=== PATIENT | female | born 1965 | race Two or more races ===

== ENCOUNTER → 2020-06-08 09:12 | Outpatient (REF) | payer MEDICAID, SELFPAY ==
--- NOTE | 2020-06-08 | NM_ITS ---
Myocardial perfusion study Indication: Chest pain with risk factors to evaluate for myocardial ischemia Technique: The patient was brought in for a Lexiscan perfusion study on 06/08/2020. Patient performed low-level exercise and was injected 0.4 mg of Lexiscan intravenously. Within a minute of injection, 40 mCi of sestamibi was given intravenously. Images were obtained using the SPECT gamma camera interlaced with the gating device. Images were obtained in supine position. Resting perfusion study was performed on 06/09/2020. Patient was administered 40 mCi of sestamibi intravenously at rest. Images were then obtained in supine position. Images obtained with and without CT attenuation. Total DLP 225 MGY-CM. Images were processed with the software and compared side to side in short axis, horizontal long axis and vertical long axis views. Findings: Images were suboptimal due to intense subdiaphragmatic uptake interfering with inferior wall uptake. The stress perfusion study showed non attenuated images show some thinning in the distal anterolateral wall of the LV myocardium with minimally reduced in the inferior and apex of the LV myocardium. Attenuation corrected images are suboptimal with mildly reduced uptake in the anterior wall and septal wall with moderately reduced uptake in the apex of the LV myocardium.. The gated study shows normal LV systolic function with calculated LVEF of 58%. LV cavity is normal in size. The gated study shows normal systolic wall thickening and contraction of segments. Resting study shows non attenuated images did not show any significant change in perfusion pattern compared to stress perfusion study. Gating at rest reveals normal systolic wall motion with visually estimated ejection fraction at greater than 55%. The findings are consistent with likely normal myocardial perfusion. NM/NM dana perf SPECT rest & str Impression: 1. Myocardial perfusion imaging study shows likely normal myocardial perfusion 2. Gated LVEF is 58% 3. Transient ischemic dilatation not present EKG is nondiagnostic for ischemia
--- NOTE | 2020-06-08 09:15 | CA_ITS ---
Acquisition Time: 2020-06-08 10:49:02 Total Exercise Time: 00:02:47 Test Indications: cp Medications: see chart Protocol: JOVITA Max HR: 150 BPM 89% of Pred: 168 BPM Max BP: 128/070 mmHG Max Work Load: 4.3 METS Started with exercise nuclear stress test using Jovita protocol, however pt became severely SOB at 2 min and 30 sec. Test switched to pharmacological using lexisca. Pt has mild SOB and Chest pressure 1/10 that resolved in recovery period. Pt had nausea and vomitted, aminophyline 75 mg IV given to pt. Zofran 4 mg IV ordered and given to pt. EKG without any arrhythmias, non-diagnostic for ischemia. Nuclear images to follow. Normotensiver esponse to test. Test reviewed with Dr. Head. Referred By: Mau Tarango Overread By: Corrine Ervin
== END ==
LOC: HO.CARD 09:12
PROVIDERS: Visit Provider Internal Medicine Cardiovascular Disease
DX: R07.89 Other chest pain (principal)
CPT/HCPCS: 78452; 93017; A9500; J0280; J2405; J2785

== ENCOUNTER 2020-06-19 10:49 | Outpatient (REF) | payer MEDICAID, SELFPAY ==
[2020-06-19 13:23] LABS: MANUAL DIFF FLAG NO
[2020-06-19 13:35] LABS: Basophils Absolute Auto 0.1 X10*3/uL (0.0-0.2); Basophils Percent Auto 0.8 % (0-2); Eosinophils Absolute Auto 0.1 X10*3/uL (0.0-0.4); Eosinophils Percent Auto 1.3 % (0-4); Hematocrit 38.5 % (37-47); Hemoglobin 11.2 g/dl (12.0-16.0); Imm Gran Abs Auto 0.02 X10*3/uL (0.00-0.03); Imm Gran Pct Auto 0.3 % (0.0-0.4); Lymphocytes Absolute Auto 1.4 X10*3/uL (1.2-4.9); Lymphocytes Percent Auto 18.2 % (20-40); Mean Corpuscular HGB Conc 29.1 g/dl (31.0-35.0); Mean Corpuscular Volume 75.6 fL (80-98); Mean Platelet Volume 10.9 fL (9.4-12.3); Monocytes Absolute Auto 0.7 X10*3/uL (0.1-1.2); Monocytes Percent Auto 8.5 % (2-11); Neutrophils Absolute Auto 5.5 X10*3/uL (2.0-8.3); Neutrophils Percent Auto 70.9 % (45-73); Platelet Count 362 X10*3/uL (160-400); Red Blood Count 5.09 X10*6/uL (4.20-5.50); Red Cell Distribution Width 16.4 % (11.0-16.0); White Blood Count 7.7 X10*3/uL (4.8-10.8)
[2020-06-19 14:03] LABS: Alanine Aminotransferase 9 U/L (0-31); Anion Gap 14 (12-20); Aspartate Amino Transferase 12 U/L (5-31); Bilirubin Total 0.4 mg/dL (0.0-1.0); Blood Urea Nitrogen 18 mg/dL (9-16); C Reactive Protein 1.85 mg/dL (< or = 0.50); Calcium 8.8 mg/dL (8.4-10.2); Carbon Dioxide 30 mmol/L (22-29); Chloride 97 mmol/L (96-108); Estimated Glomerular Filt Rate 56; Glucose Random 115 mg/dL (60-115); Potassium 4.1 mmol/l (3.3-5.1); Sodium 137 mmol/L (135-145)
[2020-06-19 14:04] LABS: Albumin Level 4.1 g/dL (3.5-5.0); Alkaline Phosphatase 94 U/L (39-117); Total Protein 7.1 g/dL (6.5-8.0)
[2020-06-19 14:16] LABS: Erythrocyte Sedimentation Rate 25 MM/HR (0-20)
[2020-06-22 08:38] LABS: HBS Num1 7.62 mIU/mL (0-7.99); HBc Num1 0.08 S/CO (0.00-0.79); HBsAGNum1 0.22 S/CO (0.00-0.99); Hepatitis B Core Antibody Nonreactive (Nonreactive); Hepatitis B Surface Antigen Negative (Negative); ~HepC Num1 9.92 S/CO (0.00-0.79); ~Hepatitis B Surface Antibody NONREACTIVE (Nonreactive); ~Hepatitis C Antibody Reactive (Nonreactive)
[2020-06-22 19:11] LABS: TS Negative Control Passed; TS Panel A 0; TS Panel B 0; TS Positive Control Passed; TSpotTB Negative (SeeBelow)
[2020-06-24 09:53] LABS: Hepatitis A Antibody IgM 0.32 Index (0-0.79); ~Hepatitis A Antibody IgM Nonreactive (Nonreactive)
[2020-10-07 11:39] LABS: HCV Log PCR <1.18 NOT DETECTED; HepC Viral Load <15 NOT DETECTED
== END 2020-06-19 10:50 | disposition home or self-care (01) ==
LOC: HO.LAB 10:49
PROVIDERS: PCP Internal Medicine; Referring Provider Internal Medicine; Visit Provider Student in an Organized Health Care Education/Training Program
DX: M05.9 Rheumatoid arthritis with rheumatoid factor, unspecified (principal); Z79.899 Other long term (current) drug therapy
CPT/HCPCS: 36415; 80053; 85025; 85652; 86140; 86481; 86704; 86706; 86709; 86803; 87340; 87522; 99212

== ENCOUNTER → 2020-06-25 11:27 | Outpatient (BNVA) | payer MEDICAID, SELFPAY | PROVIDERS: PCP Internal Medicine; Referring Provider Internal Medicine; Visit Provider Nurse Practitioner | DX: Z76.89 Persons encountering health services in other specified circumstances (principal) ==

== ENCOUNTER → 2020-07-16 11:08 | Outpatient (BNVA) | payer MEDICAID, SELFPAY | PROVIDERS: PCP Internal Medicine; Visit Provider Nurse Practitioner | DX: K58.0 Irritable bowel syndrome with diarrhea (principal); K21.9 Gastro-esophageal reflux disease without esophagitis; R14.0 Abdominal distension (gaseous); E11.9 Type 2 diabetes mellitus without complications; I10 Essential (primary) hypertension | CPT/HCPCS: 99212 ==

== ENCOUNTER → 2020-07-17 09:47 | Outpatient (BNVA) | payer MEDICAID, SELFPAY | PROVIDERS: PCP Internal Medicine; Visit Provider Student in an Organized Health Care Education/Training Program | DX: M06.9 Rheumatoid arthritis, unspecified (principal) | CPT/HCPCS: 99211 ==

== ENCOUNTER → 2020-07-30 08:39 | Outpatient (BNVA) | payer MEDICAID, SELFPAY | PROVIDERS: PCP Internal Medicine; Visit Provider Nurse Practitioner | DX: Z76.89 Persons encountering health services in other specified circumstances (principal) ==

== ENCOUNTER 2020-08-13 09:43 | Emergency (ER) | payer MEDICAID, SELFPAY ==
[2020-08-13 11:06] VITALS: BP 112/56; PULSE 82; RESP 16; TEMP 36.9; O2SAT 97; BMI 45.5
--- NOTE | 2020-08-13 11:06 | XR_ITS ---
EXAMINATION: XR CHEST CLINICAL INFORMATION: : Pneumonia. COMPARISON: Chest x-ray 08/18/2019 TECHNIQUE: Frontal view of the chest was obtained. FINDINGS: The lungs are better expanded with no acute pneumonic process seen. Heart size and pulmonary vascularity is normal. There is mild spondylosis lower dorsal spine. Old healed fracture left posterior sixth rib. XR/XR chest 1V IMPRESSION: No acute cardiopulmonary process seen.
--- NOTE | 2020-08-13 11:50 | ED.GENADULT ---
HPI - General Adult General Chief complaint: General Medical Stated complaint: covid symptoms Time Seen by Provider: 08/13/20 11:01 History of Present Illness HPI narrative: Patient presents to ED for COVID like symptoms. Patient states loss of taste, loss of smell, and coughing for the past 2 days. Patient states her sister tested positive. Patient denies any shortness of breath or chest pain. Related Data Home Medications Medication Instructions Recorded Confirmed albuterol sulfate 90 mcg/actuation 2 puff INHALATION Q6H PRN 06/19/20 06/19/20 aerosol inhaler aspirin 81 mg tablet,delayed 81 mg PO DAILY 06/19/20 06/19/20 release bupropion HCl 100 mg tablet 100 mg PO BID 06/19/20 06/19/20 cholecalciferol (vitamin D3) 25 25 mcg PO DAILY 06/19/20 06/19/20 mcg (1,000 unit) capsule diltiazem HCl 180 mg 180 mg PO DAILY 06/19/20 06/19/20 capsule,extended release 24 hr docusate sodium 100 mg capsule 100 mg PO DAILY 06/19/20 06/19/20 ferrous sulfate 325 mg (65 mg 325 mg PO DAILY 06/19/20 06/19/20 iron) tablet lamotrigine 200 mg tablet 200 mg PO DAILY 06/19/20 06/19/20 losartan 25 mg tablet 25 mg PO DAILY 06/19/20 06/19/20 montelukast 10 mg tablet 10 mg PO BEDTIME 06/19/20 06/19/20 sertraline 100 mg tablet 100 mg PO DAILY 06/19/20 06/19/20 Previous Rx's Medication Instructions Recorded folic acid 1 mg tablet 1 mg PO DAILY #90 tab 06/19/20 gabapentin 800 mg tablet 800 mg PO TID #90 tab 06/19/20 tramadol 50 mg tablet 50 mg PO Q6H #120 tab 06/19/20 adalimumab 40 mg/0.8 mL See Rx Instructions SUBCUT 07/07/20 subcutaneous pen kit .COMPLEX #2 ea bisacodyl 5 mg tablet,delayed 10 mg PO BEDTIME 2 Days #4 tab 07/16/20 release dexlansoprazole 60 mg 60 mg PO DAILY 30 Days #30 cap 07/16/20 capsule,biphase delayed release sucralfate 1 gram tablet 2 g PO DAILY #60 tab 07/16/20 [id number] 2 cap PO QID 30 Days #240 cap 07/22/20 24,000-76,000-120,000 unit capsule,delayed rel ondansetron 8 mg disintegrating 8 mg PO Q12H PRN #90 tab 07/30/20 tablet loperamide 2 mg capsule 2 mg PO QID PRN #90 cap 08/03/20 methotrexate sodium 2.5 mg tablet 12.5 mg PO QWEEK #20 tab 08/05/20 Allergies Allergy/AdvReac Type Severity Reaction Status Date / Time metoclopramide [Reglan] AdvReac Unknown diarrhea, Verified 07/30/20 08:37 vomiting Review of Systems Review of Systems: Yes all other systems are reviewed and are negative Constitutional: Constitutional: Reports as per HPI and Reports no additional constitutional complaints Eyes: Eyes: Reports as per HPI and Reports no additional eye complaints ENT: Comments: Loss of taste and smell Cardiovascular: Cardiovascular: Reports as per HPI and Reports no additional cardiovascular complaints Respiratory: Respiratory: Reports as per HPI, Reports no additional respiratory complaints and Reports cough Gastrointestinal: Gastrointestinal: Reports as per HPI and Reports no additional gastrointestinal complaints Musculoskeletal: Musculoskeletal: Reports no additional musculoskeletal complaints and Reports as per HPI Neurologic: Reports system reviewed and no additional complaints, except as documented and Reports as per HPI Psychiatric: Psychiatric: Reports no additional psychiatric complaints and Reports as per HPI [facility] Past Medical History Medical History Anemia Arthritis Asthma Bleeding hemorrhoid Chronic fatigue Diabetes GERD (gastroesophageal reflux disease) Graves disease Hepatitis C HTN (hypertension) Hyperlipidemia IBS (irritable bowel syndrome) Lumbar radiculopathy Morbid obesity Multinodular thyroid Osteoarthritis Seropositive rheumatoid arthritis Tubular adenoma of colon Vitamin D deficiency Surgical History History of esophagogastroduodenoscopy (EGD) Hx of appendectomy Hx of cholecystectomy Hx of colonoscopy Family History Family History (Updated 06/25/20 @ 11:39 by KARLA Sherman) Mother Diabetes HTN (hypertension) CVD (cardiovascular disease) Heart problem Father Diabetes Brother Autism History of open heart surgery CVD (cardiovascular disease) Diabetes Son Diabetes Maternal Grandmother Diabetes Maternal Grandfather Diabetes Social History Social History (Updated 07/30/20 @ 08:38 by KARLA Sherman) Household Members: Spouse and Children Alcohol intake: never Smoking Status: Never smoker Advance Directives: No Advance Directives Information Provided: No Physical Exam Vital Signs: Vital Signs: Last Vital Signs Temp 98.4 F 08/13/20 11:06 Pulse 82 08/13/20 11:06 Resp 16 08/13/20 11:06 BP 112/56 L 08/13/20 11:06 Pulse Ox 97 08/13/20 11:06 Body Mass Index 45.5 Const: General: cooperative, healthy appearing, comfortable, no acute distress, well developed, alert, awake and Physically active Orientation/consciousness: patient oriented x3 HENMT: Head: Yes normal to inspection and Yes No palpable skull fracture present Eyes: General: appearance normal, both eyes and all related structures Neck: Neck: Yes normal visual inspection, Yes full ROM, Yes no lymphadenopathy, Yes no meningeal signs, Yes trachea midline, Yes supple and No tender Chest: Chest palpation & inspection: normal inspection of the chest and normal palpation of entire chest wall Resp: Effort & Inspection: normal respiratory effort and able to speak in complete sentences Auscultation: clear to auscultation bilaterally Cardio: Jugular venous distension: no JVD Heart sounds: S1 normal heart sound present and S2 normal heart sound present GI: Inspection: Yes normal to inspection and No abdominal wall ecchymosis Palpation (GI): Soft to palpation, not firm, nontender, no guarding and not rigid : General: No CVA tenderness and Yes no CVA tenderness Back/Spine/Pelvis: Back: no CVA tenderness, No CVA tenderness and No back tenderness Skin: General skin exam: no rashes or lesions noted and elasticity normal Neuro: General: patient oriented x3, gait normal, no meningeal signs and CN's II-XI intact bilaterally Cranial nerves: Yes CN's II-XII intact bilaterally Extrem: General: Yes normal to inspection and Yes full ROM Psych: Appearance: grossly normal, well kempt and not disheveled Course Course Course Narrative: Patient is not in any distress. Patient will have COVID swab and chest x-ray ordered. Reevaluation(s) Reevaluation #1: Patient COVID swab came back negative& chest x-ray negative for pneumonia. Patient was informed although came back negative for COVID that does not mean she does not have the virus. Patient recommended to continue quarantine since she is having symptoms of COVID such as loss of smell and taste, coughing, and sister was positive. Time: 14:29 Medical Decision Making MDM Narrative Medical decision making narrative: Viral syndrome Lab Data Labs: Lab Results 08/13/20 Range/Units 11:55 Coronavirus (PCR) NEGATIVE (Negative) Influenza Type A (PCR) NEGATIVE (Negative) Influenza Type B (PCR) NEGATIVE (Negative) RSV RNA Qual (PCR) NEGATIVE (Negative) Discharge Plan Discharge Clinical Impression: Acute viral syndrome Patient Disposition: Home, Self-Care Instructions: Viral Syndrome (ED) Additional Instructions: Return the ED for any chest pain, shortness of breath, weakness, dizziness, leg swelling, calf pain, coughing up blood, or any other concerning symptoms. Although your COVID swab came back negative due to you having symptoms only 2 days and recent exposure to someone who is positive for COVID I recommend continuing quarantine. Prescriptions: No Action Humira Pen 40 mg/0.8 mL pen injector kit See Rx Instructions subcut .COMPLEX Qty: 2 RF: 3 [id number]-mwxvyoql-yrgaqsw [Creon] 24,000-76,000 -120,000 unit capsule,delayed release(DR/EC) 2 cap PO QID 30 Days Qty: 240 RF: 3 loperamide 2 mg capsule 2 mg PO QID PRN (Reason: loose stool) Qty: 90 RF: 1 methotrexate sodium 2.5 mg tablet 12.5 mg PO QWEEK Qty: 20 RF: 3 docusate sodium [Colace] 100 mg capsule 100 mg PO DAILY RF: 0 cholecalciferol (vitamin D3) 25 mcg (1,000 unit) capsule 25 mcg PO DAILY RF: 0 albuterol sulfate 90 mcg/actuation HFA aerosol inhaler 2 puff inhalation Q6H PRNRF: 0 lamotrigine 200 mg tablet 200 mg PO DAILY RF: 0 sertraline 100 mg tablet 100 mg PO DAILY RF: 0 montelukast [Singulair] 10 mg tablet 10 mg PO BEDTIME RF: 0 losartan 25 mg tablet 25 mg PO DAILY RF: 0 aspirin 81 mg tablet,delayed release (DR/EC) 81 mg PO DAILY RF: 0 bupropion HCl 100 mg tablet 100 mg PO BID RF: 0 ferrous sulfate 325 mg (65 mg iron) tablet 325 mg PO DAILY RF: 0 diltiazem HCl [Cartia XT] 180 mg capsule,extended release 24hr 180 mg PO DAILY RF: 0 folic acid 1 mg tablet 1 mg PO DAILY Qty: 90 RF: 1 gabapentin 800 mg tablet 800 mg PO TID Qty: 90 RF: 5 tramadol 50 mg tablet 50 mg PO Q6H Qty: 120 RF: 5 Dexilant 60 mg capsule,biphase delayed releas 60 mg PO DAILY 30 Days Qty: 30 RF: 6 sucralfate [Carafate] 1 gram tablet 2 g PO DAILY Qty: 60 RF: 6 bisacodyl [Dulcolax (bisacodyl)] 5 mg tablet,delayed release (DR/EC) 10 mg PO BEDTIME 2 Days Qty: 4 RF: 0 ondansetron 8 mg tablet,disintegrating 8 mg PO Q12H PRN (Reason: nausea and vomiting) Qty: 90 RF: 3 Referrals: Dee Valenzuela MD [Primary Care Provider] - 2 days (COVID like symptoms. COVID swab negative. Patient informed to continue quarantine due to her having symptoms and recent exposure.) Interventions: ED Discharge Assessment Last Done: 08/13/20 14:37 Discharge Date/Time: 08/13/20 14:39 Print Language: Indonesian
[2020-08-13 13:16] LABS: Influenza A PCR NEGATIVE (Negative); Influenza B PCR NEGATIVE (Negative); Resp Syncy Virus RNA Qual PCR NEGATIVE (Negative); SARS COV2 PCR INHOUSE NEGATIVE (Negative)
== END 2020-08-13 14:39 | disposition home or self-care (01) ==
PROVIDERS: Physician Assistant; Emergency Provider Emergency Medicine Emergency Medical Services; PCP Internal Medicine
DX: B34.9 Viral infection, unspecified (principal); Z20.828 Contact with and (suspected) exposure to other viral communicable diseases; J45.909 Unspecified asthma, uncomplicated; E11.9 Type 2 diabetes mellitus without complications; I10 Essential (primary) hypertension; Z79.899 Other long term (current) drug therapy
CPT/HCPCS: 0241U; 36415; 71045; 99283

== ENCOUNTER → 2020-10-20 08:24 | Outpatient (BNVA) | payer MEDICAID, SELFPAY | PROVIDERS: PCP Internal Medicine; Visit Provider Nurse Practitioner ==

== ENCOUNTER → 2020-10-21 09:10 | Outpatient (REF) | payer MEDICAID, SELFPAY ==
--- NOTE | 2020-10-21 09:30 | CA_ITS ---
Transthoracic Echocardiogram Patient (Last, First, Middle): Lilliam Geller, Gender: Female Date of : 1965 Age: 54 Procedure Date: 10/21/2020 Procedure Type: Transthoracic Echocardiogram Location: OP Height: 157.48 cm Weight: 135.63 kg BSA: 2.27 m2 Heart Rate: bpm BP: 138 / 80 mmHg [employer] Helper: Referring MD: Mau Tarango MD Simonizer: Rocky Cha MD Symptoms: R07.89 OTHER CHEST PAIN Study Quality: Good ECG Rhythm: Sinus Conclusions: - 1. Normal LV systolic function with impaired relaxation filling pattern 2. Normal cardiac valvular Doppler 3. Normal RV systolic pressure 4. No pericardial effusion Findings Left Ventricle Normal left ventricular size, thickness, and systolic function. The visually estimated ejection fraction is between 55-60%. Spectral Doppler is indicative of an impaired relaxation filling pattern. E/E prime ratio is between 8 and 15 consistent with indeterminate filling pressures. Right Ventricle Normal right ventricular cavity size and systolic function. Atria The left atrium is likely dilated. There is no evidence of interatrial shunt. The right atrium is normal in size. Aortic Valve Normal aortic valve structure and function. There is no aortic valve stenosis. There is no aortic valve regurgitation. Mitral Valve Normal mitral valve structure and function. There is trace mitral valve regurgitation. There is no mitral valve stenosis. Pulmonic Valve The pulmonic valve was not well visualized. Tricuspid Valve Normal tricuspid valve structure. There is trace tricuspid valve regurgitation. The right ventricular systolic pressure is normal. The right ventricular systolic pressure is 24 mmHg. Normal right atrial pressure. There is no evidence of pulmonary hypertension. Great Vessels All visible segments of the aorta are normal in size. The pulmonary artery was not well visualized. Venous The inferior vena cava is normal in size and collapses greater than 50% with inspiration. Pericardium/Pleural There is no evidence of pericardial effusion. Prior Study Comparison No prior study available for comparison. Measurements 2D Linear Measurements IVSd: 0.93 0.6-0.9/0.6-1.0 cm LVIDd: 5.37 3.9-5.3/4.2-5.9 cm LVIDd Index: 2.37 2.4-3.2/2.2-3.1 cm/m2 LVIDs: 3.57 2.0-3.6 cm LVPWd: 0.86 0.7-1.1 cm Ao Root: 2.80 2.1-3.5 cm LA Diam: 4.00 2.7-3.8/3.0-4.0 cm LAIDs Index: 1.76 1.5-2.3 cm/m2 LV Mass: 220.54 67-162/88-224 g LV Mass Index: 97.15 43-95/49-115 g/m2 LVOT Diam: 2.20 3.0+(-)1.3 cm 2D Systolic Function EF 4C: 56.90 >55% EF 2C: 49.90 >55% Mitral Valve MV Pk E: 1.09 MV PK A: 1.06 MV Decel Time: 187.00 E/A: 1.00 E'Lateral: 12.90 E'Medial: 8.51 E/E' Med: 12.80 E/E' Lat: 8.40 PHT: 55.00 MVA PHT: 4.00 Decel Kendall: 5.82 Aortic Valve AoV Pk Tino: 1.44 AoV Mn Tino: 0.97 AoV VTI: 0.32 AoV Pk Grad: 8.00 Aov Mn Grad: 4.00 SAJI Cont.VTI: 2.79 LVOT LVOT Pk Tino: 1.03 LVOT Mn Tino: 0.69 LVOT VTI: 0.23 LVOT Pk Grad: 4.00 LVOT Mn Grad: 2.00 LVOT Diam: 2.20 LVOT Area: 3.80 Diastolic Function MV Pk E: 1.09 MV Pk A: 1.06 E/A: 1.00 E'Medial: 8.51 E/E' Med: 12.80 E' Laterial: 12.90 E/E' Lat: 8.40 Tricuspid Valve TR Pk Tino: 2.27 TR Pk Grad: 21.00 RA Press: 3.00 RVSP: 24.00 Great Vessels Aorta Ao Root-2D: 2.80 2.0-3.7 cm Ao Asc: 3.00 2.1-3.4 cm Pulmonary Valve PV Pk Tino: 1.14 Peak PV Grad: 5.00 Updated in Other Vendor System with Status of Final Rocky Cha MD electronically signed on 10/21/2020 6:09:49 PM with status of Final
== END ==
LOC: HO.CARD 09:10
PROVIDERS: Visit Provider Internal Medicine Cardiovascular Disease
DX: R07.89 Other chest pain (principal)
CPT/HCPCS: 93306

== ENCOUNTER 2020-10-28 18:24 | Emergency (ER) | payer MEDICAID, SELFPAY ==
[2020-10-28 19:57] VITALS: BP 131/57; PULSE 89; RESP 18; TEMP 36.8; O2SAT 96; BMI 47.5
[2020-10-28 20:42] LABS: MANUAL DIFF FLAG NO
[2020-10-28 20:43] LABS: Basophils Absolute Auto 0.1 X10*3/uL (0.0-0.2); Basophils Percent Auto 0.4 % (0-2); Eosinophils Absolute Auto 0.1 X10*3/uL (0.0-0.4); Eosinophils Percent Auto 0.7 % (0-4); Hematocrit 35.3 % (37-47); Hemoglobin 10.5 g/dl (12.0-16.0); Imm Gran Abs Auto 0.03 X10*3/uL (0.00-0.03); Imm Gran Pct Auto 0.3 % (0.0-0.4); Lymphocytes Absolute Auto 2.1 X10*3/uL (1.2-4.9); Mean Corpuscular HGB Conc 29.7 g/dl (31.0-35.0); Mean Corpuscular Hemoglobin 22.2 pg (27.0-33.0); Mean Corpuscular Volume 74.8 fL (80-98); Mean Platelet Volume 9.9 fL (9.4-12.3); Monocytes Percent Auto 8.4 % (2-11); Neutrophils Absolute Auto 8.3 X10*3/uL (2.0-8.3); Neutrophils Percent Auto 72.2 % (45-73); Platelet Count 337 X10*3/uL (160-400); Red Blood Count 4.72 X10*6/uL (4.20-5.50); White Blood Count 11.5 X10*3/uL (4.8-10.8)
[2020-10-28 20:55] LABS: Glucose Urine UA NEG (NEG); Leukocyte Esterase Urine NEG (NEG); Nitrite Urine NEG (NEG); Specific Gravity - Urine 1.025 (1.005-1.025); Urine Blood NEG (NEG); Urine Ketones NEG (NEG); Urine Protein TRACE MG/DL (NEG-TRACE)
[2020-10-28 20:59] LABS: Appearance Urine CLEAR; Color Urine YELLOW
[2020-10-28 21:05] LABS: Alanine Aminotransferase 10 U/L (0-31); Albumin Level 4.2 g/dL (3.5-5.0); Alkaline Phosphatase 103 U/L (39-117); Anion Gap 17 (12-20); Aspartate Amino Transferase 13 U/L (5-31); Bilirubin Total 0.3 mg/dL (0.0-1.0); Blood Urea Nitrogen 13 mg/dL (9-16); Calcium 9.3 mg/dL (8.4-10.2); Carbon Dioxide 31 mmol/L (22-29); Chloride 97 mmol/L (96-108); Creatinine Clr Calc Pharmacy 89.3; Estimated Glomerular Filt Rate > 60; Glucose Random 82 mg/dL (60-115); Potassium 3.5 mmol/L (3.3-5.1); Sodium 141 mmol/L (135-145); Total Protein 7.5 g/dL (6.5-8.0)
--- NOTE | 2020-10-28 22:09 | ED_ITS ---
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 Patient states her last kristal l movement was yesterday and that she has continued to pass flatus. In addition, patient reports that she is status post cholecystectomy several years ago and otherwise denies any surgical history in the abdomen. Patient also complains of back discomfort that radiates into the epigastric area. She denies any urinary pain/burning/frequency. Related Data Home Medications Medication Instructions Recorded Confirmed albuterol sulfate 90 mcg/actuation 2 puff INHALATION Q6H PRN 06/19/20 06/19/20 aerosol inhaler aspirin 81 mg tablet,delayed 81 mg PO DAILY 06/19/20 06/19/20 release bupropion HCl 100 mg tablet 100 mg PO BID 06/19/20 06/19/20 cholecalciferol (vitamin D3) 25 25 mcg PO DAILY 06/19/20 06/19/20 mcg (1,000 unit) capsule diltiazem HCl 180 mg 180 mg PO DAILY 06/19/20 06/19/20 capsule,extended release 24 hr lamotrigine 200 mg tablet 200 mg PO DAILY 06/19/20 06/19/20 losartan 25 mg tablet 25 mg PO DAILY 06/19/20 06/19/20 montelukast 10 mg tablet 10 mg PO BEDTIME 06/19/20 06/19/20 sertraline 100 mg tablet 100 mg PO DAILY 06/19/20 06/19/20 Previous Rx's Medication Instructions Recorded folic acid 1 mg tablet 1 mg PO DAILY #90 tab 06/19/20 gabapentin 800 mg tablet 800 mg PO TID #90 tab 06/19/20 tramadol 50 mg tablet 50 mg PO Q6H #120 tab 06/19/20 loperamide 2 mg capsule 2 mg PO QID PRN #90 cap 08/03/20 methotrexate sodium 2.5 mg tablet 12.5 mg PO QWEEK #20 tab 08/05/20 ferrous sulfate 325 mg (65 mg 325 mg PO QAM #30 tab 09/08/20 iron) tablet dexlansoprazole 60 mg 60 mg PO DAILY 30 Days #30 cap 10/20/20 capsule,biphase delayed release docusate sodium 100 mg capsule 100 mg PO DAILY 30 Days #30 cap 10/20/20 zigamu-[id number] 2 cap PO QID 30 Days #240 cap 10/20/20 24,000-76,000-120,000 unit capsule,delayed rel ondansetron 8 mg disintegrating 8 mg PO Q12H PRN #90 tab 10/20/20 tablet sucralfate 1 gram tablet 2 g PO DAILY #60 tab 10/20/20 adalimumab 40 mg/0.8 mL 40 mg SUBCUT Q2W #2 ea 10/23/20 subcutaneous pen kit Allergies Allergy/AdvReac Type Severity Reaction Status Date / Time metoclopramide [Reglan] AdvReac Unknown diarrhea, Verified 10/20/20 08:25 vomiting Review of Systems Review of Systems: Pertinent positives and negatives as stated in HPI 10 point review of systems is otherwise negative. ON LICENSE OF [facility] Past Medical History Medical History Anemia Arthritis Asthma Bleeding hemorrhoid Chronic fatigue Diabetes GERD (gastroesophageal reflux disease) Graves disease Hepatitis C HTN (hypertension) Hyperlipidemia IBS (irritable bowel syndrome) Lumbar radiculopathy Morbid obesity Multinodular thyroid Osteoarthritis Seropositive rheumatoid arthritis Tubular adenoma of colon Vitamin D deficiency Surgical History History of esophagogastroduodenoscopy (EGD) Hx of appendectomy Hx of cholecystectomy Hx of colonoscopy Family History Family History Mother Diabetes HTN (hypertension) CVD (cardiovascular disease) Heart problem Father Diabetes Brother Autism History of open heart surgery CVD (cardiovascular disease) Diabetes Son Diabetes Maternal Grandmother Diabetes Maternal Grandfather Diabetes Social History Social History Household Members: Spouse and Children Alcohol intake: never Smoking Status: Never smoker Use of substances other than those prescribed or required for medical reasons: No Advance Directives: No Advance Directives Information Provided: Yes Physical Exam Vital Signs: Vital Signs: Last Vital Signs Temp 98.3 F 10/28/20 19:57 Pulse 89 10/28/20 19:57 Resp 18 10/28/20 19:57 BP 131/57 L 10/28/20 19:57 Pulse Ox 96 10/28/20 19:57 Body Mass Index 47.5 VITAL SIGNS: Reviewed. GENERAL: Well developed, well nourished, in no acute distress. HEAD: Normocephalic/atraumatic, EYES: PERRLA, EOMI NOSE: Nares patent bilateral OROPHARYNX: no oral lesions noted, posterior pharynx clear NECK: Supple, no adenopathy LUNGS: Normal breath sounds. No adventitious sounds or accessory muscle use. SpO2<96> CARDIOVASCULAR: Regular rate and rhythm without noted murmurs, no JVD or lower extremity edema. ABDOMEN: Obese, Soft, non-tender, non-distended with bowel sounds. SKIN: Inspection of the skin reveals no rashes, ulcerations, jaundice, pallor, or petechiae. NEUROLOGIC: Alert and oriented x 4. Strength and sensation to light touch were grossly intact x 4. Course Course Course Narrative: This is a 55-year-old female with history and clinical presen tation possible pancreatitis, back pain, and less likely pyelonephritis or kidney stones and doubt any cardiopulmonary etiologies given the absence of reported history. All investigations reviewed and there are no acute findings compared to baseline and suspect that the 11.5 leukocytosis is reflective of her episodes vomiting earlier in the day. Patient on re-evaluation has had mild improvement in her symptoms after receiving combination analgesics with lidocaine patch to the back area as well as a GI cocktail. However, patient does state that her symptoms have continued although improved and she has made an appointment to follow-up with her GI specialist as well as manager intensive care in the morning. There is no evidence of acute infection, anemia, hepatobiliary/pancreatic pathology and th ere is no evidence to suggest any corresponding GI bleed. Patient was discharged in stable condition for re-evaluation and possible medication adjustment as well as outpatient workup. Medical Decision Making Lab Data Result diagrams: 10/28/20 20:35 10/28/20 20:35 Labs: Lab Results 10/28/20 10/28/20 10/28/20 Range/Units 20:35 20:35 20:35 WBC 11.5 H (4.8-10.8) X10*3/uL RBC 4.72 (4.20-5.50) X10*6/uL Hgb 10.5 L (12.0-16.0) g/dl Hct 35.3 L (37-47) % MCV 74.8 L (80-98) fL MCH 22.2 L (27.0-33.0) pg MCHC 29.7 L (31.0-35.0) g/dl RDW 15.0 (11.0-16.0) % Plt Count 337 (160-400) X10*3/uL MPV 9.9 (9.4-12.3) fL Immature Gran % (Auto) 0.3 (0.0-0.4) % Neut % (Auto) 72.2 (45-73) % Lymph % (Auto) 18.0 L (20-40) % Blount % (Auto) 8.4 (2-11) % Eos % (Auto) 0.7 (0-4) % Baso % (Auto) 0.4 (0-2) % Lymph # (Auto) 2.1 (1.2-4.9) X10*3/uL Blount # (Auto) 1.0 (0.1-1.2) X10*3/uL Eos # (Auto) 0.1 (0.0-0.4) X10*3/uL Baso # (Auto) 0.1 (0.0-0.2) X10*3/uL Abs Immat Gran (auto) 0.03 (0.00-0.03) X10*3/uL Absolute Neuts (auto) 8.3 (2.0-8.3) X10*3/uL Absolute Nucleated RBC 0.000 (0.0-0.012) X10*3/uL Nucleated RBC % (auto) 0.0 (0.0-0.2) /100WBC Hold Blue Top SEE NOTE Sodium 141 (135-145) mmol/L Potassium 3.5 (3.3-5.1) mmol/L Chloride 97 (96-108) mmol/L Carbon Dioxide 31 H (22-29) mmol/L Anion Gap 17 (12-20) BUN 13 (9-16) mg/dL Creatinine 0.92 (0.5-1.4) mg/dL Estim Creat Clear Calc 89.3 Estimated GFR > 60 Random Glucose 82 (60-115) mg/dL Calcium 9.3 (8.4-10.2) mg/dL Total Bilirubin 0.3 (0.0-1.0) mg/dL AST 13 (5-31) U/L ALT 10 (0-31) U/L Alkaline Phosphatase 103 (39-117) U/L Total Protein 7.5 (6.5-8.0) g/dL Albumin 4.2 (3.5-5.0) g/dL Urine Color Urine Appearance Urine pH (5.0-8.0) Ur Specific [place] (1.005-1.025) Urine Protein (NEG-TRACE) MG/DL Urine Glucose (UA) (NEG) MG/DL Urine Ketones (NEG) MG/DL Urine Blood (NEG) Urine Nitrite (NEG) Ur Leukocyte Esterase (NEG) 10/28/20 Range/Units 20:45 WBC (4.8-10.8) X10*3/uL RBC (4.20-5.50) X10*6/uL Hgb (12.0-16.0) g/dl Hct (37-47) % MCV (80-98) fL MCH (27.0-33.0) pg MCHC (31.0-35.0) g/dl RDW (11.0-16.0) % Plt Count (160-400) X10*3/uL MPV (9.4-12.3) fL Immature Gran % (Auto) (0.0-0.4) % Neut % (Auto) (45-73) % Lymph % (Auto) (20-40) % Blount % (Auto) (2-11) % Eos % (Auto) (0-4) % Baso % (Auto) (0-2) % Lymph # (Auto) (1.2-4.9) X10*3/uL Blount # (Auto) (0.1-1.2) X10*3/uL Eos # (Auto) (0.0-0.4) X10*3/uL Baso # (Auto) (0.0-0.2) X10*3/uL Abs Immat Gran (auto) (0.00-0.03) X10*3/uL Absolute Neuts (auto) (2.0-8.3) X10*3/uL Absolute Nucleated RBC (0.0-0.012) X10*3/uL Nucleated RBC % (auto) (0.0-0.2) /100WBC Hold Blue Top Sodium (135-145) mmol/L Potassium (3.3-5.1) mmol/L Chloride (96-108) mmol/L Carbon Dioxide (22-29) mmol/L Anion Gap (12-20) BUN (9-16) mg/dL Creatinine (0.5-1.4) mg/dL Estim Creat Clear Calc Estimated GFR Random Glucose (60-115) mg/dL Calcium (8.4-10.2) mg/dL Total Bilirubin (0.0-1.0) mg/dL AST (5-31) U/L ALT (0-31) U/L Alkaline Phosphatase (39-117) U/L Total Protein (6.5-8.0) g/dL Albumin (3.5-5.0) g/dL Urine Color YELLOW Urine Appearance CLEAR Urine pH 6.0 (5.0-8.0) Ur Specific [place] 1.025 (1.005-1.025) Urine Protein TRACE (NEG-TRACE) MG/DL Urine Glucose (UA) NEG (NEG) MG/DL Urine Ketones NEG (NEG) MG/DL Urine Blood NEG (NEG) Urine Nitrite NEG (NEG) Ur Leukocyte Esterase NEG (NEG) Discharge Plan Discharge Clinical Impression: GERD (gastroesophageal reflux disease) Qualifiers: Esophagitis presence: without esophagitis Qualified Code(s): K21.9 - Gastro- esophageal reflux disease without esophagitis Gastritis Qualifiers: Gastritis type: unspecified gastritis Chronicity: chronic Gastritis bleeding: without bleeding Qualified Code(s): K29.50 - Unspecified chronic gastritis without bleeding Patient Disposition: Home, Self-Care Instructions: Diet for Stomach Ulcers and Gastritis (ED), Gastroesophageal Reflux Disease (ED), Gastritis (ED) Additional Instructions: No dude en volver al servicio de urgencias si experimenta un empeoramiento armando de alejandro s?ntomas. Prescriptions: No Action loperamide 2 mg capsule 2 mg PO QID PRN (Reason: loose stool) Qty: 90 RF: 1 methotrexate sodium 2.5 mg tablet 12.5 mg PO QWEEK Qty: 20 RF: 3 ferrous sulfate 325 mg (65 mg iron) tablet 325 mg PO QAM Qty: 30 RF: 5 adalimumab [Humira Pen] 40 mg/0.8 mL pen injector kit 40 mg subcut Q2W Qty: 2 RF: 3 cholecalciferol (vitamin D3) 25 mcg (1,000 unit) capsule 25 mcg PO DAILY RF: 0 albuterol sulfate 90 mcg/actuation HFA aerosol inhaler 2 puff inhalation Q6H PRNRF: 0 lamotrigine 200 mg tablet 200 mg PO DAILY RF: 0 sertraline 100 mg tablet 100 mg PO DAILY RF: 0 montelukast [Singulair] 10 mg tablet 10 mg PO BEDTIME RF: 0 losartan 25 mg tablet 25 mg PO DAILY RF: 0 aspirin 81 mg tablet,delayed release (DR/EC) 81 mg PO DAILY RF: 0 bupropion HCl 100 mg tablet 100 mg PO BID RF: 0 diltiazem HCl [Cartia XT] 180 mg capsule,extended release 24hr 180 mg PO DAILY RF: 0 folic acid 1 mg tablet 1 mg PO DAILY Qty: 90 RF: 1 gabapentin 800 mg tablet 800 mg PO TID Qty: 90 RF: 5 tramadol 50 mg tablet 50 mg PO Q6H Qty: 120 RF: 5 ondansetron 8 mg tablet,disintegrating 8 mg PO Q12H PRN (Reason: nausea and vomiting) Qty: 90 RF: 3 sucralfate [Carafate] 1 gram tablet 2 g PO DAILY Qty: 60 RF: 6 Creon 24,000-76,000 -120,000 unit capsule,delayed release(DR/EC) 2 cap PO QID 30 Days Qty: 240 RF: 6 docusate sodium [Colace] 100 mg capsule 100 mg PO DAILY 30 Days Qty: 30 RF: 6 Dexilant 60 mg capsule,biphase delayed releas 60 mg PO DAILY 30 Days Qty: 30 RF: 6 Referrals: Physician,Unknown [Primary Care Provider] - 2 days Print Language: Ugandan
[2020-10-28] MEDS: Lidocaine 4 % Patch ADH..PATCH 1 PATCH TRANSDERMA (22:17)
[2020-10-28] MEDS: Acetaminophen 325 MG TABLET 975 MG PO (22:18)
[2020-10-28] MEDS: Magnesium Hydrox/Alum Hydrox 30 ML ORAL.SUSP PO (22:19)
[2020-10-28] MEDS: Lidocaine HCl Viscous 2 % 15 ML SOLUTION 10 ML MUCOUS MEM (22:19)
== END 2020-10-28 23:55 | disposition home or self-care (01) ==
PROVIDERS: Emergency Provider Student in an Organized Health Care Education/Training Program
DX: K29.50 Unspecified chronic gastritis without bleeding (principal); K21.9 Gastro-esophageal reflux disease without esophagitis; I10 Essential (primary) hypertension; E11.9 Type 2 diabetes mellitus without complications; Z86.19 Personal history of other infectious and parasitic diseases; Z79.899 Other long term (current) drug therapy
CPT/HCPCS: 36415; 80053; 81003; 85025; 99283; 99284

== ENCOUNTER 2021-01-07 13:21 | Outpatient (REF) | payer MEDICAID, SELFPAY ==
[2021-01-07 14:44] LABS: MANUAL DIFF FLAG NO
[2021-01-07 14:48] LABS: Basophils Percent Auto 0.3 % (0-2); Eosinophils Absolute Auto 0.2 X10*3/uL (0.0-0.4); Eosinophils Percent Auto 1.9 % (0-4); Hemoglobin 10.3 g/dl (12.0-16.0); Imm Gran Abs Auto 0.04 X10*3/uL (0.00-0.03); Imm Gran Pct Auto 0.4 % (0.0-0.4); Lymphocytes Absolute Auto 2.3 X10*3/uL (1.2-4.9); Lymphocytes Percent Auto 25.6 % (20-40); Mean Corpuscular HGB Conc 29.4 g/dl (31.0-35.0); Mean Corpuscular Hemoglobin 21.5 pg (27.0-33.0); Mean Corpuscular Volume 73.1 fL (80-98); Mean Platelet Volume 10.4 fL (9.4-12.3); Monocytes Absolute Auto 0.9 X10*3/uL (0.1-1.2); Monocytes Percent Auto 10.2 % (2-11); Neutrophils Absolute Auto 5.5 X10*3/uL (2.0-8.3); Neutrophils Percent Auto 61.6 % (45-73); Platelet Count 347 X10*3/uL (160-400); Red Blood Count 4.79 X10*6/uL (4.20-5.50); Red Cell Distribution Width 16.6 % (11.0-16.0); White Blood Count 8.9 X10*3/uL (4.8-10.8)
[2021-01-07 15:24] LABS: Alanine Aminotransferase 11 U/L (0-31); Albumin Level 4.2 g/dL (3.5-5.0); Alkaline Phosphatase 99 U/L (39-117); Anion Gap 13 (12-20); Aspartate Amino Transferase 10 U/L (5-31); Bilirubin Total 0.3 mg/dL (0.0-1.0); Blood Urea Nitrogen 15 mg/dL (9-16); C Reactive Protein 1.66 mg/dL (< or = 0.50); Calcium 9.7 mg/dL (8.4-10.2); Carbon Dioxide 29 mmol/L (22-29); Chloride 100 mmol/L (96-108); Estimated Glomerular Filt Rate > 60; Glucose Random 97 mg/dL (60-115); Potassium 4.1 mmol/L (3.3-5.1); Sodium 138 mmol/L (135-145); Total Protein 7.3 g/dL (6.5-8.0)
[2021-01-07 15:55] LABS: Erythrocyte Sedimentation Rate 32 MM/HR (0-20)
== END 2021-01-07 13:22 | disposition home or self-care (01) ==
LOC: HO.LAB 13:21
PROVIDERS: PCP Internal Medicine; Visit Provider Student in an Organized Health Care Education/Training Program
DX: Z79.899 Other long term (current) drug therapy (principal)
CPT/HCPCS: 36415; 80053; 85025; 85652; 86140; 99212

== ENCOUNTER 2021-03-29 11:06 | Emergency (ER) | payer MEDICAID, SELFPAY ==
--- NOTE | ~2021-03-29 | XR_ITS ---
EXAMINATION: LEFT ELBOW AND LUMBAR SPINE CLINICAL INFORMATION: Fall COMPARISON: CT abdomen and pelvis of September 03, 2018 TECHNIQUE: 3 view of the left elbow and 3 views of the lumbar spine. FINDINGS: No left elbow effusion is identified. No definite acute fracture is noted. There is a linear lucency seen about the lateral epicondyle on one view and is likely related to trabeculation rather than fracture. There is evidence for lateral epicondylitis. There is a large amount of soft tissue swelling seen about the elbow and proximal ulnar. There are 5 nonrib bearing lumbar vertebra. No acute fracture, spondylolisthesis, or spondylolysis is identified. There is narrowing of the L4-L5 disc space. There appears to be facet arthropathy at the L5-S1 level on the right. There is some spurring seen T10-T12. XR/XR lumbar spine 2-3V IMPRESSION: Large amount soft tissue swelling about the left elbow. No left elbow effusion identified. Evidence for lateral epicondylitis. No evidence of acute fracture, spondylolisthesis, or spondylolysis of the lumbar spine.
--- NOTE | ~2021-03-29 | XR_ITS ---
EXAMINATION: LEFT ELBOW AND LUMBAR SPINE CLINICAL INFORMATION: Fall COMPARISON: CT abdomen and pelvis of September 03, 2018 TECHNIQUE: 3 view of the left elbow and 3 views of the lumbar spine. FINDINGS: No left elbow effusion is identified. No definite acute fracture is noted. There is a linear lucency seen about the lateral epicondyle on one view and is likely related to trabeculation rather than fracture. There is evidence for lateral epicondylitis. There is a large amount of soft tissue swelling seen about the elbow and proximal ulnar. There are 5 nonrib bearing lumbar vertebra. No acute fracture, spondylolisthesis, or spondylolysis is identified. There is narrowing of the L4-L5 disc space. There appears to be facet arthropathy at the L5-S1 level on the right. There is some spurring seen T10-T12. XR/XR elbow LT min 3V IMPRESSION: Large amount soft tissue swelling about the left elbow. No left elbow effusion identified. Evidence for lateral epicondylitis. No evidence of acute fracture, spondylolisthesis, or spondylolysis of the lumbar spine.
[2021-03-29 11:37] VITALS: BP 105/44; PULSE 87; RESP 16; TEMP 36.8; O2SAT 94; BMI 43.0
--- NOTE | 2021-03-29 13:08 | ED_ITS ---
HPI - Fall General Chief Complaint: Extremity Injury, Upper Stated Complaint: swollen elbow Time Seen by Provider: 03/29/21 12:03 Source: patient Mode of arrival: ambulatory Limitations: language barrier (Syrian-speaking) History of Present Illness HPI Narrative: 55-year-old female presenting to the ED with complaints of left elbow pain/swelling and lower back pain after she had a mechanical fall where she was walking up the steps and [place] at her friend's house and the steps were narrowed therefore she tripped and fell and injured her left elbow and lower back and since then has been having pain to both sites. She denies loss of consciousness. complaint: fall Onset (ago): day(s) (Three days ago) Fall from: standing Place fall occurred: other (Friend's house) Loss of consciousness: none Prolonged down time: no Symptoms prior to fall: none Context: tripped/slipped Location of injury: back Location of injury - extremities: left: elbow Severity: moderate Quality: aching and throbbing Associated symptoms (after fall): denies Related Data Home Medications Medication Instructions Recorded Confirmed albuterol sulfate 90 mcg/actuation 2 puff INHALATION Q6H PRN 06/19/20 06/19/20 aerosol inhaler aspirin 81 mg tablet,delayed 81 mg PO DAILY 06/19/20 06/19/20 release bupropion HCl 100 mg tablet 100 mg PO BID 06/19/20 06/19/20 cholecalciferol (vitamin D3) 25 25 mcg PO DAILY 06/19/20 06/19/20 mcg (1,000 unit) capsule diltiazem HCl 180 mg 180 mg PO DAILY 06/19/20 06/19/20 capsule,extended release 24 hr (Cartia XT) lamotrigine 200 mg tablet 200 mg PO DAILY 06/19/20 06/19/20 losartan 25 mg tablet 25 mg PO DAILY 06/19/20 06/19/20 montelukast 10 mg tablet 10 mg PO BEDTIME 06/19/20 06/19/20 (Singulair) sertraline 100 mg tablet 100 mg PO DAILY 06/19/20 06/19/20 Previous Rx's Medication Instructions Recorded loperamide 2 mg capsule 2 mg PO QID PRN #90 cap 08/03/20 dexlansoprazole 60 mg 60 mg PO DAILY 30 Days #30 cap 10/20/20 capsule,biphase delayed release (Dexilant) docusate sodium 100 mg capsule 100 mg PO DAILY 30 Days #30 cap 10/20/20 (Colace) eswjoi-akgtgvip-[id number] 2 cap PO QID 30 Days #240 cap 10/20/20 24,000-76,000-120,000 unit capsule,delayed rel (Creon) ondansetron 8 mg disintegrating 8 mg PO Q12H PRN #90 tab 10/20/20 tablet sucralfate 1 gram tablet (Carafate) 2 g PO DAILY #60 tab 10/20/20 adalimumab 40 mg/0.8 mL 40 mg SUBCUT Q2W #2 ea 01/07/21 subcutaneous pen kit (Humira Pen) folic acid 1 mg tablet 1 mg PO DAILY #90 tab 01/07/21 gabapentin 800 mg tablet 800 mg PO TID #90 tab 01/07/21 methotrexate sodium 2.5 mg tablet 12.5 mg PO QWEEK #20 tab 01/07/21 tramadol 50 mg tablet 50 mg PO Q6H #120 tab 01/07/21 ferrous sulfate 325 mg (65 mg 325 mg PO QAM #30 tab 02/16/21 iron) tablet (FeroSul) ibuprofen 800 mg tablet 800 mg PO Q8H PRN #14 tab 03/29/21 oxycodone-acetaminophen 5 mg-325 1 tab PO Q6H PRN #10 tab 03/29/21 mg tablet (Percocet) Allergies Allergy/AdvReac Type Severity Reaction Status Date / Time metoclopramide [Reglan] AdvReac Unknown diarrhea, Verified 03/29/21 11:42 vomiting Review of Systems Review of Systems: Constitutional : No changes in activity, No lethargy, ENT/Mouth : No Ear Pain, No Nasal discharge/drainage Eyes: No Eye Pain, No Swelling, No Redness, No Foreign Body, No Vision Changes Cardiovascular : No Chest Pain, No SOB Respiratory : No Cough Gastrointestinal : No Nausea, No Vomiting, No abdominal Pain Genitourinary : No Dysuria, No Urinary Frequency, No Urinary Incontinence, No Urgency, No Flank Pain Musculoskeletal : Positive joint pain and lower back pain/injury, No neck stiffness Skin : No lacerations Neuro : No unsteady gait, No Paresthesias, No Loss of Consciousness, No altered mental status, No Headache Yes all other systems are reviewed and are negative PMFSH Past Medical History Attestation statement: The following information was validated with the patient. Medical History Anemia Arthritis Asthma Bleeding hemorrhoid Chronic fatigue Diabetes GERD (gastroesophageal reflux disease) Graves disease Hepatitis C HTN (hypertension) Hyperlipidemia IBS (irritable bowel syndrome) Lumbar radiculopathy Morbid obesity Multinodular thyroid Osteoarthritis Seropositive rheumatoid arthritis Tubular adenoma of colon Vitamin D deficiency Surgical History History of esophagogastroduodenoscopy (EGD) Hx of appendectomy Hx of cholecystectomy Hx of colonoscopy Family History Family History Mother Diabetes HTN (hypertension) CVD (cardiovascular disease) Heart problem Father Diabetes Brother Autism History of open heart surgery CVD (cardiovascular disease) Diabetes Son Diabetes Maternal Grandmother Diabetes Maternal Grandfather Diabetes Social History Social History Household Members: Spouse and Children Alcohol intake: never Patient Tobacco Use Status: Never used Tobacco Advance Directives: Yes Advance Directives Information Provided: Yes Advance Directives on File: No Physical Exam Vital Signs: Vital Signs: Last Vital Signs Temp 98.3 F 03/29/21 11:37 Pulse 87 03/29/21 11:37 Resp 16 03/29/21 11:37 BP 105/44 L 03/29/21 11:37 Pulse Ox 94 03/29/21 11:37 Body Mass Index 43.0 vital signs have been reviewed as normal and appeared to be correct. Blood pressure mildly hypotensive at 105/44 Heart rate normal. Respiration rate normal. Temperature normal. Oxygen saturation normal. Appearance: Alert. Oriented X3. No acute distress. Head: Normal external exam. Normocephalic. Atraumatic. No Fernandes signs noted. No raccoon eyes noted Eyes: PERRLA. EOMI. Conjunctiva and sclera normal. Eyelids normal. ENT: Pharynx normal. Uvula midline. Moist mucous membranes. Neck: Normal inspection. Neck supple. FROM. No adenopathy. Thyroid Normal. No meningeal signs. No neck mass noted. CVS: Normal heart rate and rhythm. Heart sound normal. No murmurs noted. Pulses normal throughout. Respiratory: No respiratory distress. Painless inspiration. Breath sounds normal. No wheezes/rales/rhonchi noted. Chest nontender. No accessory muscle usage noted or decreased air movement noted. Abdomen: Soft and nontender. Bowel sounds normal in all 4 quadrants. No distention noted. No organomegaly noted. No visible injury noted. Back: Full range of motion noted. No obvious deformities, or edema. Mild para- spinal muscular tenderness from lumbar region to coccyx. Full ROM in back and lower extremities. 5/5 strength hip extension/flexion, abduction, adduction. Mild Lumbar pain with hip flexion against resistance. Straight leg raise test negative on right; Straight leg raise test negative on left; Reflexes normal ankle and knee bilaterally; EHL motor strength normal bilaterally. No rashes/lesion/induration/fluctuance or signs infection noted. Skin: Skin warm and dry. Normal skin color. Normal skin turgor. No rashes/lesions/lacerations noted. Extremities: Patient with tenderness palpation to left elbow with moderate soft tissue swelling and ecchymosis noted. No ligamentous laxity noted to left elbow or obvious deformities. Patient has full range of motion of the left elbow. Otherwise all other Extremities exhibit normal range of motion and nontender. Neuro: Oriented X 3. No motor deficit. No sensory deficit. Reflexes normal. Patient has a normal steady gait. Course Course Course Narrative: 55-year-old female presenting to the ED with left elbow pain and lower back pain after she had a mechanical fall 3 days ago while she was visiting friends in [place] no head injury or loss of consciousness. Imaging of left elbow and back obtained. Left elbow x-ray revealed large amount of soft tissue swelling at the left elbow although no joint effusion or obvious fractures noted. Lumbar spine x-ray negative for any fractures. Therefore will place the patient in a sling treat symptomatically and instruct her to follow up with her PCP/Orthopedics if she continues to have pain. And to return if any new or worsening symptoms. Patient understands agrees with this plan. MDM - Fall Medical Records Attestation: I reviewed the patient's medical records. Imaging Data Left elbow x-ray and lumbar spine x-ray: Attestation: I personally reviewed and interpreted this imaging study as follows: Radiologist's impression: FINDINGS: No left elbow effusion is identified. No definite acute fracture is noted. There is a linear lucency seen about the lateral epicondyle on one view and is likely related to trabeculation rather than fracture. There is evidence for lateral epicondylitis. There is a large amount of soft tissue swelling seen about the elbow and proximal ulnar. There are 5 nonrib bearing lumbar vertebra. No acute fracture, spondylolisthesis, or spondylolysis is identified. There is narrowing of the L4-L5 disc space. There appears to be facet arthropathy at the L5-S1 level on the right. There is some spurring seen T10-T12. XR/XR elbow LT min 3V IMPRESSION: Large amount soft tissue swelling about the left elbow. No left elbow effusion identified. Evidence for lateral epicondylitis. ? No evidence of acute fracture, spondylolisthesis, or spondylolysis of the lumbar spine.? Discharge Plan Discharge Clinical Impression: Fall, Sprain of elbow, left, Lumbar spine strain, Traumatic ecchymosis of left elbow Patient Disposition: Home, Self-Care Instructions: Low Back Strain (ED), Contusion in Adults (ED), Elbow Sprain (ED), Fall Prevention (ED) Prescriptions: New ibuprofen 800 mg tablet 800 mg PO Q8H PRN (Reason: pain) Qty: 14 RF: 0 oxycodone-acetaminophen [Percocet] 5-325 mg tablet 1 tab PO Q6H PRN (Reason: pain) Qty: 10 RF: 0 No Action loperamide 2 mg capsule 2 mg PO QID PRN (Reason: loose stool) Qty: 90 RF: 1 ferrous sulfate [FeroSul] 325 mg (65 mg iron) tablet 325 mg PO QAM Qty: 30 RF: 5 cholecalciferol (vitamin D3) 25 mcg (1,000 unit) capsule 25 mcg PO DAILY RF: 0 albuterol sulfate 90 mcg/actuation HFA aerosol inhaler 2 puff inhalation Q6H PRNRF: 0 lamotrigine 200 mg tablet 200 mg PO DAILY RF: 0 sertraline 100 mg tablet 100 mg PO DAILY RF: 0 montelukast [Singulair] 10 mg tablet 10 mg PO BEDTIME RF: 0 losartan 25 mg tablet 25 mg PO DAILY RF: 0 aspirin 81 mg tablet,delayed release (DR/EC) 81 mg PO DAILY RF: 0 bupropion HCl 100 mg tablet 100 mg PO BID RF: 0 diltiazem HCl [Cartia XT] 180 mg capsule,extended release 24hr 180 mg PO DAILY RF: 0 Humira Pen 40 mg/0.8 mL pen injector kit 40 mg subcut Q2W Qty: 2 RF: 3 folic acid 1 mg tablet 1 mg PO DAILY Qty: 90 RF: 1 gabapentin 800 mg tablet 800 mg PO TID Qty: 90 RF: 5 methotrexate sodium 2.5 mg tablet 12.5 mg PO QWEEK Qty: 20 RF: 3 tramadol 50 mg tablet 50 mg PO Q6H Qty: 120 RF: 5 ondansetron 8 mg tablet,disintegrating 8 mg PO Q12H PRN (Reason: nausea and vomiting) Qty: 90 RF: 3 sucralfate [Carafate] 1 gram tablet 2 g PO DAILY Qty: 60 RF: 6 Creon 24,000-76,000 -120,000 unit capsule,delayed release(DR/EC) 2 cap PO QID 30 Days Qty: 240 RF: 6 docusate sodium [Colace] 100 mg capsule 100 mg PO DAILY 30 Days Qty: 30 RF: 6 Dexilant 60 mg capsule,biphase delayed releas 60 mg PO DAILY 30 Days Qty: 30 RF: 6 Referrals: Dee Valenzuela MD [Primary Care Provider] - 2 days Munira Gonzalez MD [Physician] - 2 weeks (Call for a follow-up if symptoms persist for longer than 1-2 weeks) Print Language: Syrian
== END 2021-03-29 13:23 | disposition home or self-care (01) ==
PROVIDERS: Emergency Provider Emergency Medicine; PCP Internal Medicine
DX: S53.402A Unspecified sprain of left elbow, initial encounter (principal); S39.012A Strain of muscle, fascia and tendon of lower back, initial encounter; S50.02XA Contusion of left elbow, initial encounter; M25.522 Pain in left elbow; W01.0XXA Fall on same level from slipping, tripping and stumbling without subsequent striking against object, initial encounter; Y93.9 Activity, unspecified; Y92.9 Unspecified place or not applicable; Y99.9 Unspecified external cause status; Z79.899 Other long term (current) drug therapy
CPT/HCPCS: 72100; 73080; 99283; 99284

== ENCOUNTER 2021-04-14 08:02 | Outpatient (REF) | payer MEDICAID, SELFPAY ==
[2021-04-14 09:27] LABS: MANUAL DIFF FLAG NO
[2021-04-14 09:39] LABS: Basophils Percent Auto 0.3 % (0-2); Eosinophils Absolute Auto 0.2 X10*3/uL (0.0-0.4); Eosinophils Percent Auto 2.1 % (0-4); Hematocrit 31.9 % (37-47); Hemoglobin 9.4 g/dl (12.0-16.0); Imm Gran Abs Auto 0.04 X10*3/uL (0.00-0.03); Imm Gran Pct Auto 0.5 % (0.0-0.4); Lymphocytes Absolute Auto 1.8 X10*3/uL (1.2-4.9); Lymphocytes Percent Auto 20.1 % (20-40); Mean Corpuscular HGB Conc 29.5 g/dl (31.0-35.0); Mean Corpuscular Volume 74.5 fL (80-98); Mean Platelet Volume 10.8 fL (9.4-12.3); Monocytes Absolute Auto 0.9 X10*3/uL (0.1-1.2); Monocytes Percent Auto 10.7 % (2-11); Neutrophils Absolute Auto 5.8 X10*3/uL (2.0-8.3); Neutrophils Percent Auto 66.3 % (45-73); Platelet Count 281 X10*3/uL (160-400); Red Blood Count 4.28 X10*6/uL (4.20-5.50); Red Cell Distribution Width 17.4 % (11.0-16.0); White Blood Count 8.7 X10*3/uL (4.8-10.8)
[2021-04-14 10:11] LABS: Alanine Aminotransferase 13 U/L (0-31); Albumin Level 3.9 g/dL (3.5-5.0); Alkaline Phosphatase 101 U/L (39-117); Anion Gap 17 (12-20); Aspartate Amino Transferase 17 U/L (5-31); Bilirubin Total 0.3 mg/dL (0.0-1.0); Blood Urea Nitrogen 12 mg/dL (9-16); C Reactive Protein 2.98 mg/dL (< or = 0.50); Calcium 9.5 mg/dL (8.4-10.2); Carbon Dioxide 28 mmol/L (22-29); Chloride 99 mmol/L (96-108); Estimated Glomerular Filt Rate 42; Glucose Random 143 mg/dL (60-115); Potassium 4.2 mmol/L (3.3-5.1); Sodium 140 mmol/L (135-145); Total Protein 6.6 g/dL (6.5-8.0)
[2021-04-14 10:21] LABS: Erythrocyte Sedimentation Rate 31 MM/HR (0-20)
[2021-04-14 11:32] LABS: Iron 27 mcg/dL (30-160); Percent Iron Saturation 7 % (15-50); Total Iron Binding Capacity 413 mcg/dL (228-428); Unsaturated Iron Binding 386 ug/dL
[2021-04-14 11:52] LABS: Ferritin 17 ng/mL (10-250)
== END 2021-04-14 08:03 | disposition home or self-care (01) ==
LOC: HO.LAB 08:02
PROVIDERS: PCP Internal Medicine; Visit Provider Nurse Practitioner Family
DX: M05.9 Rheumatoid arthritis with rheumatoid factor, unspecified (principal); M54.5 Low back pain; M25.522 Pain in left elbow; Z79.899 Other long term (current) drug therapy
CPT/HCPCS: 36415; 80053; 82728; 83540; 85025; 85652; 86140; 99212

== ENCOUNTER → 2021-04-19 08:31 | Outpatient (BNVA) | payer MEDICAID, SELFPAY | PROVIDERS: PCP Internal Medicine; Visit Provider Nurse Practitioner ==

== ENCOUNTER 2021-05-04 09:31 | Outpatient (REF) | payer MEDICAID, SELFPAY ==
[2021-05-04 10:13] LABS: MANUAL DIFF FLAG NO
[2021-05-04 10:18] LABS: Basophils Absolute Auto 0.1 X10*3/uL (0.0-0.2); Basophils Percent Auto 0.6 % (0-2); Eosinophils Absolute Auto 0.2 X10*3/uL (0.0-0.4); Eosinophils Percent Auto 2.2 % (0-4); Hematocrit 31.6 % (37-47); Hemoglobin 9.3 g/dl (12.0-16.0); Imm Gran Abs Auto 0.03 X10*3/uL (0.00-0.03); Imm Gran Pct Auto 0.4 % (0.0-0.4); Lymphocytes Absolute Auto 1.5 X10*3/uL (1.2-4.9); Lymphocytes Percent Auto 18.7 % (20-40); Mean Corpuscular HGB Conc 29.4 g/dl (31.0-35.0); Mean Corpuscular Volume 74.9 fL (80-98); Mean Platelet Volume 10.6 fL (9.4-12.3); Monocytes Absolute Auto 0.8 X10*3/uL (0.1-1.2); Monocytes Percent Auto 10.2 % (2-11); Neutrophils Absolute Auto 5.3 X10*3/uL (2.0-8.3); Neutrophils Percent Auto 67.9 % (45-73); Platelet Count 258 X10*3/uL (160-400); Red Blood Count 4.22 X10*6/uL (4.20-5.50); Red Cell Distribution Width 16.8 % (11.0-16.0); White Blood Count 7.8 X10*3/uL (4.8-10.8)
[2021-05-04 10:51] LABS: Iron 21 mcg/dL (30-160); Percent Iron Saturation 5 % (15-50); Total Iron Binding Capacity 440 mcg/dL (228-428); Unsaturated Iron Binding 419 ug/dL
[2021-05-04 11:16] LABS: Ferritin 14 ng/mL (10-250)
== END 2021-05-04 09:32 | disposition home or self-care (01) ==
LOC: HO.LAB 09:31
PROVIDERS: PCP Internal Medicine; Visit Provider Nurse Practitioner Family
DX: M05.9 Rheumatoid arthritis with rheumatoid factor, unspecified (principal); D64.9 Anemia, unspecified
CPT/HCPCS: 36415; 82728; 83540; 85025

== ENCOUNTER → 2021-05-07 07:55 | Outpatient (BNVA) | payer MEDICAID, SELFPAY | PROVIDERS: Visit Provider Physician Assistant | DX: S50.02XA Contusion of left elbow, initial encounter (principal) | CPT/HCPCS: 99202 ==

== ENCOUNTER → 2021-05-27 08:48 | Outpatient (BNVA) | payer MEDICAID, SELFPAY | PROVIDERS: Visit Provider Nurse Practitioner ==

== ENCOUNTER 2021-07-14 07:58 | Outpatient (REF) | payer MEDICAID, SELFPAY ==
[2021-07-14 08:56] LABS: MANUAL DIFF FLAG NO
[2021-07-14 09:14] LABS: Basophils Percent Auto 0.3 % (0-2); Eosinophils Absolute Auto 0.1 X10*3/uL (0.0-0.4); Eosinophils Percent Auto 1.1 % (0-4); Hematocrit 34.3 % (37.0-47.0); Hemoglobin 9.7 g/dl (12.0-16.0); Imm Gran Abs Auto 0.03 X10*3/uL (0.00-0.03); Imm Gran Pct Auto 0.3 % (0.0-0.4); Lymphocytes Absolute Auto 2.4 X10*3/uL (1.2-4.9); Lymphocytes Percent Auto 20.4 % (20-40); Mean Corpuscular HGB Conc 28.3 g/dl (31.0-35.0); Mean Corpuscular Hemoglobin 20.8 pg (27.0-33.0); Mean Corpuscular Volume 73.6 fL (80.0-98.0); Monocytes Percent Auto 8.9 % (2-11); Platelet Count 336 X10*3/uL (160-400); Red Blood Count 4.66 X10*6/uL (4.20-5.50); Red Cell Distribution Width 16.7 % (11.0-16.0); White Blood Count 11.6 X10*3/uL (4.8-10.8)
[2021-07-14 09:41] LABS: Alanine Aminotransferase 16 U/L (0-31); Albumin Level 3.9 g/dL (3.5-5.0); Alkaline Phosphatase 92 U/L (39-117); Anion Gap 14 (12-20); Aspartate Amino Transferase 14 U/L (5-31); Bilirubin Total < 0.2 mg/dL (0.0-1.0); Blood Urea Nitrogen 15 mg/dL (9-16); C Reactive Protein 1.97 mg/dL (< or = 0.50); Calcium 9.4 mg/dL (8.4-10.2); Carbon Dioxide 27 mmol/L (22-29); Chloride 103 mmol/L (96-108); Estimated Glomerular Filt Rate > 60; Glucose Random 100 mg/dL (60-115); Potassium 4.1 mmol/L (3.3-5.1); Sodium 140 mmol/L (135-145); Total Protein 7.4 g/dL (6.5-8.0)
[2021-07-14 10:04] LABS: Erythrocyte Sedimentation Rate 40 MM/HR (0-20)
== END 2021-07-14 07:59 | disposition home or self-care (01) ==
LOC: HO.LAB 07:58
PROVIDERS: PCP Internal Medicine; Visit Provider Nurse Practitioner Family
DX: M05.9 Rheumatoid arthritis with rheumatoid factor, unspecified (principal); M25.522 Pain in left elbow; Z79.899 Other long term (current) drug therapy
CPT/HCPCS: 36415; 80053; 85025; 85652; 86140; 99212

== ENCOUNTER 2021-07-28 07:46 | Outpatient (REF) | payer MEDICAID, SELFPAY | END 2021-07-28 07:47 | disposition home or self-care (01) | LOC: HO.MDS 07:46 | PROVIDERS: PCP Internal Medicine; Visit Provider Internal Medicine Medical Oncology | DX: D50.9 Iron deficiency anemia, unspecified (principal); E05.00 Thyrotoxicosis with diffuse goiter without thyrotoxic crisis or storm | CPT/HCPCS: 96365; 96366; J1200; J1750; Q0163 ==

== ENCOUNTER 2021-08-08 17:39 | Emergency (ER) | payer MEDICAID, SELFPAY ==
--- NOTE | ~2021-08-08 | XR_ITS ---
EXAMINATION: XR CHEST CLINICAL INFORMATION: Shortness of breath. COMPARISON: Chest radiograph dated from 08/13/2020. TECHNIQUE: PA view of the chest was obtained. FINDINGS: Stable appearance of the cardiomediastinal silhouette and similar degree of interstitial prominence bilaterally. No focal airspace opacities, pleural effusions or pneumothorax. Stable distortion in the right apex with chronic rib deformities. No acute osseous abnormalities. XR/XR chest 1V IMPRESSION: No acute cardiopulmonary findings. Chronic interstitial prominence.
[2021-08-08 18:08] VITALS: BP 107/50; PULSE 106; RESP 26; TEMP 36.7; O2SAT 97; BMI 49.2
--- NOTE | 2021-08-08 18:12 | ECG_ITS ---
Test Reason : chest pain Blood Pressure : / mmHG Vent. Rate : 101 BPM Atrial Rate : 101 BPM P-R Int : 132 ms QRS Dur : 074 ms QT Int : 340 ms P-R-T Axes : 050 002 035 degrees QTc Int : 440 ms Sinus tachycardia Possible Inferior infarct , age undetermined Abnormal ECG When compared with ECG of 18-AUG-2019 16:29, No significant changes seen Referred By: Generic ED Physician Electronically Signed By:ARNALDO LAWSON MD
[2021-08-08 19:20] LABS: MANUAL DIFF FLAG NO
[2021-08-08 19:23] LABS: Basophils Percent Auto 0.4 % (0-2); Eosinophils Absolute Auto 0.1 X10*3/uL (0.0-0.4); Eosinophils Percent Auto 1.2 % (0-4); Hematocrit 35.4 % (37.0-47.0); Hemoglobin 10.5 g/dl (12.0-16.0); Imm Gran Abs Auto 0.02 X10*3/uL (0.00-0.03); Imm Gran Pct Auto 0.4 % (0.0-0.4); Lymphocytes Absolute Auto 0.9 X10*3/uL (1.2-4.9); Lymphocytes Percent Auto 17.1 % (20-40); Mean Corpuscular HGB Conc 29.7 g/dl (31.0-35.0); Mean Corpuscular Hemoglobin 22.4 pg (27.0-33.0); Mean Corpuscular Volume 75.6 fL (80.0-98.0); Mean Platelet Volume 10.6 fL (9.4-12.3); Monocytes Absolute Auto 0.8 X10*3/uL (0.1-1.2); Monocytes Percent Auto 15.4 % (2-11); Neutrophils Absolute Auto 3.4 x10*3/uL (2.0-8.3); Neutrophils Percent Auto 65.5 % (45-73); Platelet Count 222 X10*3/uL (160-400); Red Blood Count 4.68 X10*6/uL (4.20-5.50); Red Cell Distribution Width 21.2 % (11.0-16.0); White Blood Count 5.2 X10*3/uL (4.8-10.8)
[2021-08-08 19:30] LABS: COVID-19 Test Positive (Negative)
[2021-08-08 19:35] LABS: Anion Gap 12 (12-20); Blood Urea Nitrogen 14 mg/dL (9-16); Carbon Dioxide 29 mmol/L (22-29); Chloride 102 mmol/L (96-108); Creatinine Clr Calc Pharmacy 78.5; Estimated Glomerular Filt Rate 54; Glucose Random 100 mg/dL (60-115); Potassium 3.9 mmol/L (3.3-5.1); Sodium 139 mmol/L (135-145)
[2021-08-08 19:43] LABS: B Type Natriuretic Peptide < 10 pg/mL (<100); Troponin-I High Sensitivity < 3.5 ng/L (<3.5-17.0)
[2021-08-08 21:46] VITALS: PULSE 114; RESP 24; O2SAT 93
--- NOTE | 2021-08-08 21:59 | PC.NURSE ---
digital media specialist: pt requesting repeat VS, taken and charted, endorsing increased dyspnea, audibly wheezing, TOMMIE changed per standar
--- NOTE | 2021-08-08 22:34 | ED_ITS ---
HPI - Asthma General Chief Complaint: Asthma Stated Complaint: chest pain Time Seen by Provider: 08/08/21 22:26 Source: patient Mode of arrival: ambulatory Limitations: no limitations History of Present Illness HPI Narrative: Patient comes to the emergency room complaining of shortness of breath. Patient states that she has COPD and asthma. However her breathing has been worse than usual. Patient states that she uses oxygen as needed at home. Patient denies fever or chills Related Data Home Medications Medication Instructions Recorded Confirmed albuterol sulfate 90 mcg/actuation 2 puff INHALATION Q6H PRN 06/19/20 07/19/21 aerosol inhaler aspirin 81 mg tablet,delayed 81 mg PO DAILY 06/19/20 07/19/21 release bupropion HCl 100 mg tablet 100 mg PO BID 06/19/20 07/19/21 cholecalciferol (vitamin D3) 25 25 mcg PO DAILY 06/19/20 07/19/21 mcg (1,000 unit) capsule diltiazem HCl 180 mg 180 mg PO DAILY 06/19/20 07/19/21 capsule,extended release 24 hr (Cartia XT) lamotrigine 200 mg tablet 200 mg PO DAILY 06/19/20 07/19/21 losartan 25 mg tablet 25 mg PO DAILY 06/19/20 07/19/21 montelukast 10 mg tablet 10 mg PO BEDTIME 06/19/20 07/19/21 (Singulair) sertraline 100 mg tablet 100 mg PO DAILY 06/19/20 07/19/21 Previous Rx's Medication Instructions Recorded loperamide 2 mg capsule 2 mg PO QID PRN #90 cap 08/03/20 ferrous sulfate 325 mg (65 mg 325 mg PO QAM #30 tab 02/16/21 iron) tablet (FeroSul) ibuprofen 800 mg tablet 800 mg PO Q8H PRN #14 tab 03/29/21 dicyclomine 10 mg capsule 10 mg PO QIDACHS 30 Days #120 cap 04/19/21 sucralfate 1 gram tablet (Carafate) 1 g PO DAILY 30 Days #30 tab 04/19/21 adalimumab 40 mg/0.8 mL 40 mg (0.8 mL) SUBCUT Q2W #2 ea 04/20/21 subcutaneous pen kit (Humira Pen) rxsmen-hywzvovv-kbrsbwy 2 cap PO QID 30 Days #240 cap 05/03/21 24,000-76,000-120,000 unit capsule,delayed rel (Creon) methotrexate sodium 2.5 mg tablet 12.5 mg PO QWEEK #20 tab 05/03/21 tramadol 50 mg tablet 50 mg PO Q6H #120 tab 06/30/21 dexlansoprazole 60 mg 60 mg PO BEDTIME #30 cap 07/06/21 capsule,biphase delayed release (Dexilant) folic acid 1 mg tablet 1 mg PO DAILY #90 tab 07/14/21 gabapentin 800 mg tablet 800 mg PO TID #90 tab 07/14/21 ondansetron 8 mg disintegrating 8 mg PO BID-TID PRN #90 ea 07/26/21 tablet docusate sodium 100 mg capsule 100 mg PO DAILY #30 cap 08/02/21 Allergies Allergy/AdvReac Type Severity Reaction Status Date / Time metoclopramide [Reglan] AdvReac Unknown diarrhea, Verified 08/08/21 18:08 vomiting Review of Systems Review of Systems: Constitutional : No Weight loss, No Fever, No Chills, No Night Sweats, No Fatigue, No Malaise ENT/Mouth : No Hearing loss, No Ear Pain, No Nasal Congestion, No Sinus Pain, No Hoarseness, No sore throat, No Rhinorrhea, No Swallowing Difficulty Eyes: No Eye Pain, No Swelling, No Redness, No Foreign Body, No Discharge, No Vision Changes Cardiovascular : No Chest Pain, no palpitations, no orthopnea Respiratory : Patient has chronic cough, chronic shortness of breath but for the last 3 days it has been worse than usual Gastrointestinal : No Nausea, No Vomiting, No Diarrhea, No Constipation, No abdominal Pain, No Hematochezia, No Melena Genitourinary : no irregular bleeding, No Dysuria, No Urinary Frequency, No Denis turia, No Urinary Incontinence, No Urgency, No Flank Pain, No Urinary Flow Changes, No Hesitancy Musculoskeletal : No joint pain, No Myalgias, No Joint Swelling Skin : No Skin Lesions, No rash Neuro : No Weakness, No Numbness, No Paresthesias, No Loss of Consciousness, No Dizziness, No Headache Psych : No Anxiety/Panic, No Depression, No SI/HI/AH/VH, No Social Issues, Heme/Lymph: No Bruising, No Bleeding,No Lymphadenopathy Endocrine : No Polyuria, No Polydipsia, No Temperature Intolerance FOR[facility]LY [facility] Past Medical History Medical History Anemia Arthritis Asthma Bleeding hemorrhoid Chronic fatigue COPD (chronic obstructive pulmonary disease) Diabetes GERD (gastroesophageal reflux disease) Graves disease Hepatitis C HTN (hypertension) Hyperlipidemia IBS (irritable bowel syndrome) Lumbar radiculopathy Morbid obesity Multinodular thyroid Osteoarthritis Seropositive rheumatoid arthritis Tubular adenoma of colon Vitamin D deficiency Surgical History History of esophagogastroduodenoscopy (EGD) Hx of appendectomy Hx of cholecystectomy Hx of colonoscopy Family History Family History Mother Diabetes HTN (hypertension) CVD (cardiovascular disease) Heart problem Father Diabetes Brother Autism History of open heart surgery CVD (cardiovascular disease) Diabetes Son Diabetes Maternal Grandmother Diabetes Maternal Grandfather Diabetes Social History Social History Household Members: Spouse and Children Alcohol intake: never Patient Tobacco Use Status: Never used Tobacco Advance Directives: No Advance Directives Information Provided: Yes Current occupational status: disabled Current occupation: rt handed Physical Exam Vital Signs: Vital Signs: Last Vital Signs Temp 98.1 F 08/08/21 18:08 Pulse 114 H 08/08/21 23:05 Resp 20 08/08/21 23:05 BP 107/50 L 08/08/21 18:08 Pulse Ox 93 08/08/21 21:46 BMI result Body Mass Index 49.2 Const: Other: Appearance: Alert. Oriented X3. No acute distress. Eyes: Pupils equal, round and reactive to light. ENT: Pharynx normal. Neck: Normal inspection. Neck supple. No lymph nodes noted. No crepitus CVS: Normal heart rate and rhythm. Pulses normal. Normal S1 and S2 Respiratory: No respiratory distress. Diminished breath sounds bilaterally, bilateral wheezing Abdomen: Soft and nontender. No rigidity. No distention. good BS x4 Skin: Skin warm and dry. Normal skin color. Normal skin turgor. Extremities: No lower extremity edema. No Lacerations. No Rash Neuro: Oriented X 3. No motor deficit. No sensory deficit. Moving all extermities. No slurred speech. Course Course Course Narrative: Patient receive a breathing treatment, patient received p.o. dexamethasone. I discussed with the patient she needs to sleep with oxygen on to prevent desaturations while she is recuperating from COVID. Patient feels well, eating and drinking. Patient was offered the COVID-19 no clonal antibody therapy. Patient agreed. Information has been emailed. MDM - Asthma Lab Data Result diagrams: 08/08/21 19:04 08/08/21 19:04 Labs: Lab Results 08/08/21 08/08/21 08/08/21 Range/Units 18:55 19:04 19:04 WBC 5.2 (4.8-10.8) X10*3/uL RBC 4.68 (4.20-5.50) X10*6/uL Hgb 10.5 L (12.0-16.0) g/dl Hct 35.4 L (37.0-47.0) % MCV 75.6 L (80.0-98.0) fL MCH 22.4 L (27.0-33.0) pg MCHC 29.7 L (31.0-35.0) g/dl RDW 21.2 H (11.0-16.0) % Plt Count 222 D (160-400) X10*3/uL MPV 10.6 (9.4-12.3) fL Immature Gran % (Auto) 0.4 (0.0-0.4) % Neut % (Auto) 65.5 (45-73) % Lymph % (Auto) 17.1 L (20-40) % [place] % (Auto) 15.4 H (2-11) % Eos % (Auto) 1.2 (0-4) % Baso % (Auto) 0.4 (0-2) % Lymph # (Auto) 0.9 L (1.2-4.9) X10*3/uL [place] # (Auto) 0.8 (0.1-1.2) X10*3/uL Eos # (Auto) 0.1 (0.0-0.4) X10*3/uL Baso # (Auto) 0.0 (0.0-0.2) X10*3/uL Abs Immat Gran (auto) 0.02 (0.00-0.03) X10*3/uL Absolute Neuts (auto) 3.4 (2.0-8.3) x10*3/uL Absolute Nucleated RBC 0.000 (0.0-0.012) X10*3/uL Nucleated RBC % (auto) 0.0 (0.0-0.2) /100WBC D-Dimer High Sensitivty NG/ML Sodium 139 (135-145) mmol/L Potassium 3.9 (3.3-5.1) mmol/L Chloride 102 (96-108) mmol/L Carbon Dioxide 29 (22-29) mmol/L Anion Gap 12 (12-20) BUN 14 (9-16) mg/dL Creatinine 1.07 (0.5-1.4) mg/dL Estim Creat Clear Calc 78.5 Estimated GFR 54 Random Glucose 100 (60-115) mg/dL Calcium 9.0 (8.4-10.2) mg/dL Troponin I High Sens (<3.5-17.0) ng/L B-Natriuretic Peptide (<100) pg/mL Urine Color Urine Appearance Urine pH (5.0-8.0) Ur Specific [place] (1.005-1.025) Urine Protein (NEG-TRACE) MG/DL Urine Glucose (UA) (NEG) MG/DL Urine Ketones (NEG) MG/DL Urine Blood (NEG) Urine Nitrite (NEG) Ur Leukocyte Esterase (NEG) COVID-19 ([facility]) Positive A (Negative) COVID-19 Clin Com See Note 08/08/21 08/08/21 08/08/21 Range/Units 19:04 23:22 23:22 WBC (4.8-10.8) X10*3/uL RBC (4.20-5.50) X10*6/uL Hgb (12.0-16.0) g/dl Hct (37.0-47.0) % MCV (80.0-98.0) fL MCH (27.0-33.0) pg MCHC (31.0-35.0) g/dl RDW (11.0-16.0) % Plt Count (160-400) X10*3/uL MPV (9.4-12.3) fL Immature Gran % (Auto) (0.0-0.4) % Neut % (Auto) (45-73) % Lymph % (Auto) (20-40) % [place] % (Auto) (2-11) % Eos % (Auto) (0-4) % Baso % (Auto) (0-2) % Lymph # (Auto) (1.2-4.9) X10*3/uL [place] # (Auto) (0.1-1.2) X10*3/uL Eos # (Auto) (0.0-0.4) X10*3/uL Baso # (Auto) (0.0-0.2) X10*3/uL Abs Immat Gran (auto) (0.00-0.03) X10*3/uL Absolute Neuts (auto) (2.0-8.3) x10*3/uL Absolute Nucleated RBC (0.0-0.012) X10*3/uL Nucleated RBC % (auto) (0.0-0.2) /100WBC D-Dimer High Sensitivty < 150 NG/ML Sodium (135-145) mmol/L Potassium (3.3-5.1) mmol/L Chloride (96-108) mmol/L Carbon Dioxide (22-29) mmol/L Anion Gap (12-20) BUN (9-16) mg/dL Creatinine (0.5-1.4) mg/dL Estim Creat Clear Calc Estimated GFR Random Glucose (60-115) mg/dL Calcium (8.4-10.2) mg/dL Troponin I High Sens < 3.5 (<3.5-17.0) ng/L B-Natriuretic Peptide < 10 (<100) pg/mL Urine Color YELLOW Urine Appearance CLEAR Urine pH 5.5 (5.0-8.0) Ur Specific [place] >= 1.030 H (1.005-1.025) Urine Protein TRACE (NEG-TRACE) MG/DL Urine Glucose (UA) NEG (NEG) MG/DL Urine Ketones NEG (NEG) MG/DL Urine Blood NEG (NEG) Urine Nitrite NEG (NEG) Ur Leukocyte Esterase NEG (NEG) COVID-19 ([facility]) (Negative) COVID-19 Clin Com Discharge Plan Discharge Clinical Impression: COVID-19, Asthma Patient Disposition: Home, Self-Care Instructions: Asthma (ED), COVID-19 (Coronavirus Disease 2019) (ED) Additional Instructions: Please call tomorrow the [facility]. Please follow-up with your primary care physician tomorrow. If you have any worsening or new symptoms, please return to the emergency room or call 911 Prescriptions: No Action loperamide 2 mg capsule 2 mg PO QID PRN (Reason: loose stool) Qty: 90 RF: 1 ferrous sulfate [FeroSul] 325 mg (65 mg iron) tablet 325 mg PO QAM Qty: 30 RF: 5 Humira Pen 40 mg/0.8 mL pen injector kit 40 mg subcut Q2W Qty: 2 RF: 3 methotrexate sodium 2.5 mg tablet 12.5 mg PO QWEEK Qty: 20 RF: 3 Hold Instructions: Doctor's Order Creon 24,000-76,000 -120,000 unit capsule,delayed release(DR/EC) 2 cap PO QID 30 Days Qty: 240 RF: 1 tramadol 50 mg tablet 50 mg PO Q6H Qty: 120 RF: 5 Dexilant 60 mg capsule,biphase delayed releas 60 mg PO BEDTIME Qty: 30 RF: 1 ondansetron 8 mg tablet,disintegrating 8 mg PO BID-TID PRN (Reason: for nausea/vomiting) Qty: 90 RF: 1 docusate sodium 100 mg capsule 100 mg PO DAILY Qty: 30 RF: 6 ibuprofen 800 mg tablet 800 mg PO Q8H PRN (Reason: pain) Qty: 14 RF: 0 cholecalciferol (vitamin D3) 25 mcg (1,000 unit) capsule 25 mcg PO DAILY RF: 0 albuterol sulfate 90 mcg/actuation HFA aerosol inhaler 2 puff inhalation Q6H PRN (Reason: Wheezing) RF: 0 lamotrigine 200 mg tablet 200 mg PO DAILY RF: 0 sertraline 100 mg tablet 100 mg PO DAILY RF: 0 montelukast [Singulair] 10 mg tablet 10 mg PO BEDTIME RF: 0 losartan 25 mg tablet 25 mg PO DAILY RF: 0 aspirin 81 mg tablet,delayed release (DR/EC) 81 mg PO DAILY RF: 0 bupropion HCl 100 mg tablet 100 mg PO BID RF: 0 diltiazem HCl [Cartia XT] 180 mg capsule,extended release 24hr 180 mg PO DAILY RF: 0 sucralfate [Carafate] 1 gram tablet 1 g PO DAILY 30 Days Qty: 30 RF: 6 dicyclomine 10 mg capsule 10 mg PO QIDACHS 30 Days Qty: 120 RF: 6 folic acid 1 mg tablet 1 mg PO DAILY Qty: 90 RF: 1 gabapentin 800 mg tablet 800 mg PO TID Qty: 90 RF: 5
[2021-08-08] MEDS: Albuterol Sulfate (0.083%) 2.5 MG/3 ML VIAL.NEB 10 MG INHALE (23:04)
[2021-08-08 23:05] VITALS: PULSE 114; RESP 20; O2SAT 93
[2021-08-08 23:30] LABS: Appearance Urine CLEAR; Color Urine YELLOW; Glucose Urine UA NEG (NEG); Leukocyte Esterase Urine NEG (NEG); Nitrite Urine NEG (NEG); PH 5.5 (5.0-8.0); Specific Gravity - Urine >= 1.030 (1.005-1.025); Urine Blood NEG (NEG); Urine Ketones NEG (NEG); Urine Protein TRACE MG/DL (NEG-TRACE)
[2021-08-08 23:38] LABS: D Dimer High Sensitivity < 150 NG/ML
[2021-08-09] MEDS: dexAMETHasone 6 MG TABLET PO (00:47)
== END 2021-08-09 01:00 | disposition home or self-care (01) ==
PROVIDERS: Emergency Provider Emergency Medicine
DX: U07.1 COVID-19 (principal); J45.909 Unspecified asthma, uncomplicated; I10 Essential (primary) hypertension; E11.9 Type 2 diabetes mellitus without complications; Z99.81 Dependence on supplemental oxygen
CPT/HCPCS: 36415; 71045; 80048; 81003; 83880; 84484; 85025; 85379; 87635; 93005; 94640; 94644; 99283; 99284; J8540

== ENCOUNTER 2021-08-11 21:18 | Inpatient (IN) | payer MEDICAID, SELFPAY ==
--- NOTE | 2021-08-11 | ECG_ITS ---
Test Reason : sob Blood Pressure : / mmHG Vent. Rate : 113 BPM Atrial Rate : 113 BPM P-R Int : 130 ms QRS Dur : 076 ms QT Int : 328 ms P-R-T Axes : 047 -06 037 degrees QTc Int : 449 ms Sinus tachycardia Inferior infarct (cited on or before 08-AUG-2021) Abnormal ECG When compared with ECG of 08-AUG-2021 19:08, No significant change was found Referred By: Generic ED Physician Electronically Signed By:ARNALDO LAWSON MD
--- NOTE | ~2021-08-11 | XR_ITS ---
EXAMINATION: XR CHEST CLINICAL INFORMATION: Shortness of breath. COMPARISON: Chest radiograph dated from 08/08/2021. TECHNIQUE: PA view of the chest was obtained. FINDINGS: Unchanged appearance of the cardiomediastinal silhouette. Increased interstitial markings in the right upper/middle lobes. No pleural effusions or pneumothorax. No acute osseous findings. XR/XR chest 1V IMPRESSION: Increased interstitial markings and hazy opacities in the right upper/middle lobes raising the possibility of developing infiltrates in the appropriate clinical context.
--- NOTE | ~2021-08-11 | CT_ITS ---
EXAMINATION: CT ABDOMEN AND PELVIS WITHOUT CONTRAST CLINICAL INFORMATION: Abdomen pain COMPARISON: Portions of a previous CT 09/04/18 TECHNIQUE: Multidetector volumetric imaging was performed from the superior aspect of the liver through the pubic symphysis. Sagittal and coronal reformatted images were obtained on the technologist's workstation. This CT examination was performed using dose optimization techniques as appropriate, variously including the following: *Automated exposure control *Adjustment of mA and/or kV according to patient size (this includes techniques or standardized protocols for targeted exams where dose is matched to indication/reason for exam; i.e. extremities or head) *Use of iterative reconstruction technique DLP: 1398 mGy-cm FINDINGS: The study is limited due to motion. LUNG BASES: There are new reticular and linear opacities in the periphery of both lower lobes. This is nonspecific. Correlate with any clinical evidence of resolving viral pneumonia. The left ventricle may be mildly dilated. LIVER, GALLBLADDER, AND BILIARY TREE: No suspicious focal liver lesion. There is mild diffuse decreased hepatic attenuation likely due to fatty change. There is a metallic density posteriorly adjacent to the right lobe of the liver. This could represent a surgical clip. The gallbladder is absent. There are surgical clips in the expected region of the gallbladder. There is no definite biliary dilation. PANCREAS: Limited by motion. No definite abnormality. SPLEEN: No suspicious abnormality. ADRENAL GLANDS: No definite mass. KIDNEYS AND URETERS: Limited by motion. There is a mass deforming the lateral aspect of the left kidney which is difficult to characterize due to motion. There was a mass in this area on a contrast-enhanced study 09/04/18. On the previous study this measured approximately 1.3 cm. On the current study although limited by motion I suspect this measures at least 2.3 cm. No gross dilation of the collecting system. No definite opaque urinary calculus. BLADDER: The bladder is nearly empty. No definite abnormality. GASTROINTESTINAL TRACT: Gas and fecal residue throughout the colon. There is a small fat attenuating rounded structure in the fat adjacent to the sigmoid colon. This could be a diverticulum or an old infarct. No surrounding stranding. No CT evidence of acute appendicitis. The stomach is not well distended. There is some semisolid material within small bowel loops. This suggests some stasis. ABDOMINAL WALL: Stranding in the gluteal fat with calcifications suggest injection granuloma. No definite significant abdominal wall hernia. LYMPH NODES: There are no measurably enlarged abdominal or pelvic lymph nodes. There is no significant free intraperitoneal fluid. VASCULAR: There is no abdominal aortic aneurysm. PELVIC VISCERA: The uterus is bulky and slightly irregular in contour. Adenomyomatosis could give this appearance. This is nonspecific. OSSEOUS STRUCTURES: Callus associated with lower left rib fractures. Small sclerotic focus left iliac wing unchanged and therefore does not require any further evaluation. CT/CT abdomen pelvis wo con IMPRESSION: Study limited by motion. No definite acute abnormality. There is semisolid material within mildly distended small bowel loops. This suggests stasis. There is an incompletely characterized 2.3 cm left renal mass. This appears to have increased in size. Recommend a nonemergent ultrasound Fleischner guidelines were followed.
--- NOTE | ~2021-08-11 | US_ITS ---
EXAMINATION: ULTRASOUND RENAL WITH LEFT CLINICAL INFORMATION: Left renal mass COMPARISON: CT abdomen pelvis 08/14/2021 and 09/03/2018. Abdominal ultrasound 11/17/2014. TECHNIQUE: Grayscale and color Doppler imaging was obtained of the left kidney. FINDINGS: The left kidney measures approximately 10.9 x 5.2 x 4.5 cm. Renal cortex is well-maintained. Normal echogenicity of the left kidney. Off the midpole of the left kidney there is an exophytic hypoechoic focus which measures approximately 1.8 x 1.8 x 2.1 cm. Some subtle internal echogenicities are felt to represent artifact, however, subtle internal debris is possible. There is no color flow associated with this abnormality. No renal calculi or hydronephrosis of the left kidney. US/US renal LT IMPRESSION: Mild interval increase in size of now 2.1 cm hypoechoic, avascular lesion of the left kidney. Findings are most consistent with a cyst.
[2021-08-11 21:38] VITALS: BP 111/87; BP 113/78; PULSE 113; PULSE 115; RESP 24; O2SAT 91; O2SAT 93; BMI 48.6
[2021-08-11 22:27] LABS: MANUAL DIFF FLAG NO
[2021-08-11 22:29] LABS: Eosinophils Percent Auto 0.3 % (0-4); Hematocrit 36.3 % (37.0-47.0); Hemoglobin 10.6 g/dl (12.0-16.0); Imm Gran Abs Auto 0.05 X10*3/uL (0.00-0.03); Imm Gran Pct Auto 0.6 % (0.0-0.4); Lymphocytes Absolute Auto 0.9 X10*3/uL (1.2-4.9); Lymphocytes Percent Auto 11.1 % (20-40); Mean Corpuscular HGB Conc 29.2 g/dl (31.0-35.0); Mean Corpuscular Hemoglobin 22.4 pg (27.0-33.0); Mean Corpuscular Volume 76.7 fL (80.0-98.0); Mean Platelet Volume 10.6 fL (9.4-12.3); Monocytes Absolute Auto 0.7 X10*3/uL (0.1-1.2); Monocytes Percent Auto 8.9 % (2-11); Neutrophils Absolute Auto 6.2 x10*3/uL (2.0-8.3); Neutrophils Percent Auto 79.1 % (45-73); Platelet Count 189 X10*3/uL (160-400); Red Blood Count 4.73 X10*6/uL (4.20-5.50); Red Cell Distribution Width 21.7 % (11.0-16.0); White Blood Count 7.8 X10*3/uL (4.8-10.8)
[2021-08-11 22:49] LABS: Alanine Aminotransferase 32 U/L (0-31); Albumin Level 3.7 g/dL (3.5-5.0); Alkaline Phosphatase 99 U/L (39-117); Anion Gap 13 (12-20); Aspartate Amino Transferase 28 U/L (5-31); Bilirubin Total 0.2 mg/dL (0.0-1.0); Blood Urea Nitrogen 15 mg/dL (9-16); Carbon Dioxide 27 mmol/L (22-29); Chloride 102 mmol/L (96-108); Creatinine Clr Calc Pharmacy 68.4; Estimated Glomerular Filt Rate 46; Glucose Random 183 mg/dL (60-115); Potassium 3.5 mmol/L (3.3-5.1); Sodium 138 mmol/L (135-145); Total Protein 7.1 g/dL (6.5-8.0)
[2021-08-11 22:55] LABS: B Type Natriuretic Peptide < 10 pg/mL (<100)
[2021-08-12] VITALS (11 sets, daily range): BP systolic 107–142; BP diastolic 35–80; PULSE 87–113; RESP 15–20; TEMP 36.8–37.4; O2SAT 88–97
[2021-08-12] MEDS: Albuterol Sulfate 90 MCG 8 GM INHALER 4 PUFF INHALE (01:03)
[2021-08-12] MEDS: methylPREDNISolone Sod Succ 125 MG/2 ML VIAL IVPUSH (01:03)
--- NOTE | 2021-08-12 01:07 | PC.NURSE ---
IV established, all labs including BCX x 2 obtained and sent. VSS @ this time. Pt medicated per OCT. Continue to monitor.
--- NOTE | 2021-08-12 01:10 | ED_ITS ---
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 When questioned regarding use of home oxygen she states that that was discontinued after she lost weight. Otherwise, patient reports cough with chest wall pain on coughing but otherwise denies any fever, chills, GI or symptoms. Patient has been vaccinated with Moderna. Related Data Home Medications Medication Instructions Recorded Confirmed albuterol sulfate 90 mcg/actuation 2 puff INHALATION Q6H PRN 06/19/20 07/19/21 aerosol inhaler aspirin 81 mg tablet,delayed 81 mg PO DAILY 06/19/20 07/19/21 release bupropion HCl 100 mg tablet 100 mg PO BID 06/19/20 07/19/21 cholecalciferol (vitamin D3) 25 25 mcg PO DAILY 06/19/20 07/19/21 mcg (1,000 unit) capsule diltiazem HCl 180 mg 180 mg PO DAILY 06/19/20 07/19/21 capsule,extended release 24 hr (Cartia XT) lamotrigine 200 mg tablet 200 mg PO DAILY 06/19/20 07/19/21 losartan 25 mg tablet 25 mg PO DAILY 06/19/20 07/19/21 montelukast 10 mg tablet 10 mg PO BEDTIME 06/19/20 07/19/21 (Singulair) sertraline 100 mg tablet 100 mg PO DAILY 06/19/20 07/19/21 Previous Rx's Medication Instructions Recorded loperamide 2 mg capsule 2 mg PO QID PRN #90 cap 08/03/20 ferrous sulfate 325 mg (65 mg 325 mg PO QAM #30 tab 02/16/21 iron) tablet (FeroSul) ibuprofen 800 mg tablet 800 mg PO Q8H PRN #14 tab 03/29/21 dicyclomine 10 mg capsule 10 mg PO QIDACHS 30 Days #120 cap 04/19/21 sucralfate 1 gram tablet (Carafate) 1 g PO DAILY 30 Days #30 tab 04/19/21 adalimumab 40 mg/0.8 mL 40 mg (0.8 mL) SUBCUT Q2W #2 ea 04/20/21 subcutaneous pen kit (Humira Pen) [id number] 2 cap PO QID 30 Days #240 cap 05/03/21 24,000-76,000-120,000 unit capsule,delayed rel (Creon) methotrexate sodium 2.5 mg tablet 12.5 mg PO QWEEK #20 tab 05/03/21 tramadol 50 mg tablet 50 mg PO Q6H #120 tab 06/30/21 dexlansoprazole 60 mg 60 mg PO BEDTIME #30 cap 07/06/21 capsule,biphase delayed release (Dexilant) folic acid 1 mg tablet 1 mg PO DAILY #90 tab 07/14/21 gabapentin 800 mg tablet 800 mg PO TID #90 tab 07/14/21 ondansetron 8 mg disintegrating 8 mg PO BID-TID PRN #90 ea 07/26/21 tablet docusate sodium 100 mg capsule 100 mg PO DAILY #30 cap 08/02/21 Allergies Allergy/AdvReac Type Severity Reaction Status Date / Time metoclopramide [Reglan] AdvReac Unknown diarrhea, Verified 08/11/21 21:38 vomiting Review of Systems Review of Systems: Pertinent positives and negatives as stated in HPI and 10 point review of systems is otherwise negative. FORMERLY [facility], [facility]–1983 Past Medical History Source: nursing notes reviewed Medical History Anemia Arthritis Asthma Bleeding hemorrhoid Chronic fatigue COPD (chronic obstructive pulmonary disease) Diabetes GERD (gastroesophageal reflux disease) Graves disease Hepatitis C HTN (hypertension) Hyperlipidemia IBS (irritable bowel syndrome) Lumbar radiculopathy Morbid obesity Multinodular thyroid Osteoarthritis Seropositive rheumatoid arthritis Tubular adenoma of colon Vitamin D deficiency Surgical History History of esophagogastroduodenoscopy (EGD) Hx of appendectomy Hx of cholecystectomy Hx of colonoscopy Family History Family History Mother Diabetes HTN (hypertension) CVD (cardiovascular disease) Heart problem Father Diabetes Brother Autism History of open heart surgery CVD (cardiovascular disease) Diabetes Son Diabetes Maternal Grandmother Diabetes Maternal Grandfather Diabetes Social History Social History Household Members: Spouse and Children Alcohol intake: never Patient Tobacco Use Status: Never used Tobacco Advance Directives: No Advance Directives Information Provided: No Patient : No Current occupational status: disabled Current occupation: rt handed Physical Exam Vital Signs: Vital Signs: Last Vital Signs Temp 99.4 F 08/12/21 00:57 Pulse 87 08/12/21 00:57 Resp 20 08/12/21 00:57 BP 112/72 08/12/21 00:57 Pulse Ox 97 08/12/21 00:57 BMI result Body Mass Index 48.6 VITAL SIGNS: Reviewed. GENERAL: Well developed, well nourished, in no acute distress. HEAD: Normocephalic/atraumatic EYES: PERRLA, EOMI EARS: Ext canals without abnormality OROPHARYNX: no oral lesions noted, posterior pharynx clear NECK: Supple, no adenopathy LUNGS: Bibasilar decrease in breath sounds, mild tachypnea without retractions. SpO2<91> on room air oxygenation improved to 97% on 2 L via nasal cannula. CARDIOVASCULAR: Regular rate and rhythm without noted murmurs, no JVD or lower extremity edema. ABDOMEN: Soft, non-tender, non-distended with bowel sounds. MUSCULOSKELETAL: No tenderness, deformities, or effusions noted on gross inspection. EXTREMITIES: No cyanosis, clubbing or edema. SKIN: Inspection of the skin reveals no rashes NEUROLOGIC: Alert and oriented x 4. Strength and sensation to light touch were grossly intact x 4. Course Course Course Narrative: 0045: 55-year-old female evaluated at bedside and on history and clinical presentation likely multifactorial dyspnea with a combination of COVID-19/asthma/COPD. 0129: Review of VBG demonstrates this episode is asthma in etiology. Review of all investigations there are no acute findings from baseline, despite albuterol treatment as well as steroids and magnesium sulfate patient remains 89-91%. This case was discussed with inpatient hospitalist who accepts admission. MDM - SOB/Dyspnea Lab Data Result diagrams: 08/11/21 22:23 08/11/21 22:23 Labs: Lab Results 08/11/21 08/11/21 08/11/21 Range/Units 22:23 22:23 22:23 WBC 7.8 (4.8-10.8) X10*3/uL RBC 4.73 (4.20-5.50) X10*6/uL Hgb 10.6 L (12.0-16.0) g/dl Hct 36.3 L (37.0-47.0) % MCV 76.7 L (80.0-98.0) fL MCH 22.4 L (27.0-33.0) pg MCHC 29.2 L (31.0-35.0) g/dl RDW 21.7 H (11.0-16.0) % Plt Count 189 (160-400) X10*3/uL MPV 10.6 (9.4-12.3) fL Immature Gran % (Auto) 0.6 H (0.0-0.4) % Neut % (Auto) 79.1 H (45-73) % Lymph % (Auto) 11.1 L (20-40) % [place] % (Auto) 8.9 (2-11) % Eos % (Auto) 0.3 (0-4) % Baso % (Auto) 0.0 (0-2) % Lymph # (Auto) 0.9 L (1.2-4.9) X10*3/uL [place] # (Auto) 0.7 (0.1-1.2) X10*3/uL Eos # (Auto) 0.0 (0.0-0.4) X10*3/uL Baso # (Auto) 0.0 (0.0-0.2) X10*3/uL Abs Immat Gran (auto) 0.05 H (0.00-0.03) X10*3/uL Absolute Neuts (auto) 6.2 (2.0-8.3) x10*3/uL Absolute Nucleated RBC 0.000 (0.0-0.012) X10*3/uL Nucleated RBC % (auto) 0.0 (0.0-0.2) /100WBC VBG pH (7.32-7.43) VBG pCO2 mmHg VBG pO2 mmHg VBG HCO3 (22-26) mmol/L VBG O2 Saturation % VBG Base Excess mmol/L Sodium 138 (135-145) mmol/L Potassium 3.5 (3.3-5.1) mmol/L Chloride 102 (96-108) mmol/L Carbon Dioxide 27 (22-29) mmol/L Anion Gap 13 (12-20) BUN 15 (9-16) mg/dL Creatinine 1.22 (0.5-1.4) mg/dL Estim Creat Clear Calc 68.4 Estimated GFR 46 Random Glucose 183 H (60-115) mg/dL Lactic Acid (0.5-2.0) mmol/L Calcium 9.0 (8.4-10.2) mg/dL Total Bilirubin 0.2 (0.0-1.0) mg/dL AST 28 D (5-31) U/L ALT 32 H (0-31) U/L Alkaline Phosphatase 99 (39-117) U/L B-Natriuretic Peptide < 10 (<100) pg/mL Total Protein 7.1 (6.5-8.0) g/dL Albumin 3.7 (3.5-5.0) g/dL COVID-19 ([facility]WON) (Negative) COVID-19 Clin Com 08/12/21 08/12/21 08/12/21 Range/Units 01:02 01:03 01:21 WBC (4.8-10.8) X10*3/uL RBC (4.20-5.50) X10*6/uL Hgb (12.0-16.0) g/dl Hct (37.0-47.0) % MCV (80.0-98.0) fL MCH (27.0-33.0) pg MCHC (31.0-35.0) g/dl RDW (11.0-16.0) % Plt Count (160-400) X10*3/uL MPV (9.4-12.3) fL Immature Gran % (Auto) (0.0-0.4) % Neut % (Auto) (45-73) % Lymph % (Auto) (20-40) % [place] % (Auto) (2-11) % Eos % (Auto) (0-4) % Baso % (Auto) (0-2) % Lymph # (Auto) (1.2-4.9) X10*3/uL [place] # (Auto) (0.1-1.2) X10*3/uL Eos # (Auto) (0.0-0.4) X10*3/uL Baso # (Auto) (0.0-0.2) X10*3/uL Abs Immat Gran (auto) (0.00-0.03) X10*3/uL Absolute Neuts (auto) (2.0-8.3) x10*3/uL Absolute Nucleated RBC (0.0-0.012) X10*3/uL Nucleated RBC % (auto) (0.0-0.2) /100WBC VBG pH 7.51 H (7.32-7.43) VBG pCO2 35 mmHg VBG pO2 134 mmHg VBG HCO3 28 H (22-26) mmol/L VBG O2 Saturation 99.0 % VBG Base Excess 5.5 mmol/L Sodium (135-145) mmol/L Potassium (3.3-5.1) mmol/L Chloride (96-108) mmol/L Carbon Dioxide (22-29) mmol/L Anion Gap (12-20) BUN (9-16) mg/dL Creatinine (0.5-1.4) mg/dL Estim Creat Clear Calc Estimated GFR Random Glucose (60-115) mg/dL Lactic Acid 1.1 (0.5-2.0) mmol/L Calcium (8.4-10.2) mg/dL Total Bilirubin (0.0-1.0) mg/dL AST (5-31) U/L ALT (0-31) U/L Alkaline Phosphatase (39-117) U/L B-Natriuretic Peptide (<100) pg/mL Total Protein (6.5-8.0) g/dL Albumin (3.5-5.0) g/dL COVID-19 ([facility]WON) Positive A (Negative) COVID-19 Clin Com See Note Discharge Plan Discharge Clinical Impression: Lab test positive for detection of COVID-19 virus, Asthma exacerbation, Hypoxemia Patient Disposition: Admitted As Inpatient Prescriptions: No Action loperamide 2 mg capsule 2 mg PO QID PRN (Reason: loose stool) Qty: 90 RF: 1 ferrous sulfate [FeroSul] 325 mg (65 mg iron) tablet 325 mg PO QAM Qty: 30 RF: 5 Humira Pen 40 mg/0.8 mL pen injector kit 40 mg subcut Q2W Qty: 2 RF: 3 methotrexate sodium 2.5 mg tablet 12.5 mg PO QWEEK Qty: 20 RF: 3 Hold Instructions: Doctor's Order Creon 24,000-76,000 -120,000 unit capsule,delayed release(DR/EC) 2 cap PO QID 30 Days Qty: 240 RF: 1 tramadol 50 mg tablet 50 mg PO Q6H Qty: 120 RF: 5 Dexilant 60 mg capsule,biphase delayed releas 60 mg PO BEDTIME Qty: 30 RF: 1 ondansetron 8 mg tablet,disintegrating 8 mg PO BID-TID PRN (Reason: for nausea/vomiting) Qty: 90 RF: 1 docusate sodium 100 mg capsule 100 mg PO DAILY Qty: 30 RF: 6 ibuprofen 800 mg tablet 800 mg PO Q8H PRN (Reason: pain) Qty: 14 RF: 0 cholecalciferol (vitamin D3) 25 mcg (1,000 unit) capsule 25 mcg PO DAILY RF: 0 albuterol sulfate 90 mcg/actuation HFA aerosol inhaler 2 puff inhalation Q6H PRN (Reason: Wheezing) RF: 0 lamotrigine 200 mg tablet 200 mg PO DAILY RF: 0 sertraline 100 mg tablet 100 mg PO DAILY RF: 0 montelukast [Singulair] 10 mg tablet 10 mg PO BEDTIME RF: 0 losartan 25 mg tablet 25 mg PO DAILY RF: 0 aspirin 81 mg tablet,delayed release (DR/EC) 81 mg PO DAILY RF: 0 bupropion HCl 100 mg tablet 100 mg PO BID RF: 0 diltiazem HCl [Cartia XT] 180 mg capsule,extended release 24hr 180 mg PO DAILY RF: 0 sucralfate [Carafate] 1 gram tablet 1 g PO DAILY 30 Days Qty: 30 RF: 6 dicyclomine 10 mg capsule 10 mg PO QIDACHS 30 Days Qty: 120 RF: 6 folic acid 1 mg tablet 1 mg PO DAILY Qty: 90 RF: 1 gabapentin 800 mg tablet 800 mg PO TID Qty: 90 RF: 5
[2021-08-12 01:17] LABS: Lactic Acid 1.1 mmol/L (0.5-2.0)
[2021-08-12 01:19] LABS: Venous Blood Gas Refer to POC result
[2021-08-12 01:21] LABS: VBG Base Excess 5.5 mmol/L; VBG HCO3 28 mmol/L (22-26); VBG pCO2 35 mmHg; VBG pH 7.51 (7.32-7.43); VBG pO2 134 mmHg
[2021-08-12 01:34] LABS: COVID-19 Test Positive (Negative); IDNOW Serial# 9DD0AD1C
--- NOTE | 2021-08-12 02:18 | PC.NURSE ---
Per MD to trial pt on room air.
[2021-08-12] MEDS: Magnesium Sulfate/H2O 2 GM/50 ML PIGGYBACK IV (02:56)
--- NOTE | 2021-08-12 04:31 | P.HPHOSP_ITS ---
History of Present Illness Date of Service: 08/12/21 Chief Complaint: shortness of breath 55-year-old female with a past medical history of hypertension, hyperlipidemia, diabetes, COPD, interval bowel syndrome, chronic pain, rheumatoid arthritis - on Humira, hepatitis-C, Graves disease, hemorrhoids, arthritis, asthma, vaccinated with Moderna vaccine including booster dose; presented to the hospital today with a chief complaint of shortness of breath. Patient reports that she was recently diagnosed with COVID-19 positive on 08/08/2021; has been having generalized weakness, shortness of breath; complains of dyspnea on exertion; mentions her shortness of breath has been gradually worsening; currently not on home oxygen. Hence decided to come to the hospital for further evaluation. Reports cough without any sputum production. Complains posttussive chest discomfort. Denies any GI symptoms. Denies any numbness tingling or focal weakness. Review of all other systems is negative except mentioned above ER course: Per ER team patient noted to have coarse breath sounds and bilateral wheezing; saturating 91% on room air-placed on 2 L of supplemental oxygen saturating 97%; mildly tachypneic on presentation; patient was given nebulizations, steroids; admitted to the hospital for further management PMFSH Medical History Anemia Arthritis Asthma Bleeding hemorrhoid Chronic fatigue COPD (chronic obstructive pulmonary disease) Diabetes GERD (gastroesophageal reflux disease) Graves disease Hepatitis C HTN (hypertension) Hyperlipidemia IBS (irritable bowel syndrome) Lumbar radiculopathy Morbid obesity Multinodular thyroid Osteoarthritis Seropositive rheumatoid arthritis Tubular adenoma of colon Vitamin D deficiency Family History Mother Diabetes HTN (hypertension) CVD (cardiovascular disease) Heart problem Father Diabetes Brother Autism History of open heart surgery CVD (cardiovascular disease) Diabetes Son Diabetes Maternal Grandmother Diabetes Maternal Grandfather Diabetes Pertinent family history: above Surgical History History of esophagogastroduodenoscopy (EGD) Hx of appendectomy Hx of cholecystectomy Hx of colonoscopy Social History Household Members: Spouse and Children Alcohol intake: never Patient Tobacco Use Status: Never used Tobacco Advance Directives: No Advance Directives Information Provided: No Patient : No Current occupational status: disabled Current occupation: rt handed Meds Allergies Allergy/AdvReac Type Severity Reaction Status Date / Time metoclopramide [Reglan] AdvReac Unknown diarrhea, Verified 08/11/21 21:38 vomiting Active Medications: Current Medications Acetaminophen (Acetaminophen 325 Mg Tablet) 650 mg PO Q6H PRN PRN Reason: Pain, Mild (Pain Scale 1-3) Albuterol/Ipratropium (Albuterol/Iprat 2.5/0.5mg 3 Ml Ampul.Neb) 3 ml INHALE RQ6H WHILE AWAKE RAVEN Albuterol/Ipratropium (Albuterol/Iprat 2.5/0.5mg 3 Ml Ampul.Neb) 3 ml INHALE RQ4H PRN PRN Reason: Shortness of Breath/Wheezing Azithromycin (Azithromycin 500 Mg Tablet) 500 mg PO Q24H RAVEN Enoxaparin Sodium (Enoxaparin Sodium 40 Mg/0.4 Ml Syringe) 40 mg SUBCUT Q24H RAVEN Magnesium Sulfate (Magnesium Sulfate/H2o) 2 gm in 50 mls @ 25 mls/hr IV ONCE ONE Stop: 08/12/21 04:40 Last Admin: 08/12/21 02:56 Dose: 25 mls/hr Documented by: Ceftriaxone Sodium 1 gm/ (Sodium Chloride) 50 mls @ 100 mls/hr IV Q24H RAVEN Melatonin (Melatonin 3 Mg Tablet) 6 mg PO BEDTIME PRN PRN Reason: Insomnia Methylprednisolone Sodium Succinate (Methylprednisolone Sod Succ 125 Mg/2 Ml Vial) 60 mg IVPUSH Q8H RAVEN Morphine Sulfate (Morphine Sulfate 4 Mg/Ml Cartridge) 1 mg IVPUSH Q4H PRN; Protocol PRN Reason: Pain, SOB Senna (Sennosides 8.6 Mg Tablet) 17.2 mg PO BEDTIME PRN PRN Reason: Constipation Sodium Chloride (0.9 % Sodium Chloride Flush 3 Ml Syringe) 3 ml IVFLUSH QSHIFT [facility] Home Medications Medication Instructions Recorded Confirmed Last Taken Type adalimumab 40 mg/0.8 mL 40 mg SUBCUT Q2W 08/12/21 08/12/21 Unknown History subcutaneous pen kit (Humira Pen) aspirin 81 mg tablet,delayed 81 mg PO QPM 08/12/21 08/12/21 Unknown History release budesonide-formoterol HFA 160 2 puff PO BID 08/12/21 08/12/21 Unknown History mcg-4.5 mcg/actuation aerosol inhaler (Symbicort) bupropion HCl 150 mg 24 hr tablet, 150 mg PO QAM 08/12/21 08/12/21 Unknown History extended release dicyclomine 10 mg capsule 10 mg PO QID 08/12/21 08/12/21 Unknown History diltiazem HCl 180 mg 180 mg PO QAM 08/12/21 08/12/21 Unknown History capsule,extended release 24 hr docusate sodium 100 mg capsule 100 mg PO DAILY 08/12/21 08/12/21 Unknown History ferrous sulfate 325 mg (65 mg 1 tab PO DAILY 08/12/21 08/12/21 Unknown History iron) tablet (FeroSul) folic acid 1 mg tablet 1 mg PO QAM 08/12/21 08/12/21 Unknown History furosemide 20 mg tablet 20 mg PO QAM 08/12/21 08/12/21 Unknown History gabapentin 800 mg tablet 800 mg PO TID 08/12/21 08/12/21 Unknown History lidocaine 5 % topical patch patch TOPICAL 08/12/21 Unknown History iremcv-ajyefins-ttbsthf 2 cap PO QID 08/12/21 08/12/21 Unknown History 24,000-76,000-120,000 unit capsule,delayed rel (Creon) lorazepam 0.5 mg tablet 0.5 mg PO BID PRN 08/12/21 08/12/21 Unknown History losartan 25 mg tablet 25 mg PO QAM 08/12/21 08/12/21 Unknown History mepolizumab 100 mg/mL subcutaneous mg SUBCUT 08/12/21 Unknown History auto-injector (Nucala) metformin 500 mg tablet,extended 1,000 mg PO 08/12/21 Unknown History release 24 hr montelukast 10 mg tablet 10 mg PO QPM 08/12/21 08/12/21 Unknown History ondansetron 8 mg disintegrating 8 mg PO BID-TID PRN 08/12/21 08/12/21 Unknown History tablet sertraline 100 mg tablet 100 mg PO QAM 08/12/21 08/12/21 Unknown History sucralfate 1 gram tablet 1 g PO DAILY 08/12/21 08/12/21 Unknown History tramadol 50 mg tablet 50 mg PO Q6H 08/12/21 08/12/21 Unknown History zolpidem 10 mg tablet 10 mg PO BEDTIME PRN 08/12/21 08/12/21 Unknown History Physical Exam Vital Signs and Narrative: Vital Signs: Last Vital Signs Temp 99.4 F 08/12/21 00:57 Pulse 87 08/12/21 00:57 Resp 20 08/12/21 00:57 BP 112/72 08/12/21 00:57 Pulse Ox 97 08/12/21 00:57 BMI result Body Mass Index 48.6 Gen: Appears be in no acute distress; on supplemental oxygen. Speaks in full HEENT: NCAT, Moist mucosa. Pulmonary: coarse breath sounds; wheezing noted CVS: Normal S1-S2 Abdomen: BS+, Soft, Nontender Extremities: Warm well perfused Neuro: Alert and awake. Results Labs CBC and Chem 7: 08/11/21 22:23 08/11/21 22:23 Labs: Laboratory Results - last 24 hr 08/11/21 08/11/21 08/11/21 22:23 22:23 22:23 MCV 76.7 L MCH 22.4 L MCHC 29.2 L RDW 21.7 H Plt Count 189 MPV 10.6 Immature Gran % (Auto) 0.6 H Neut % (Auto) 79.1 H Lymph % (Auto) 11.1 L [place] % (Auto) 8.9 Eos % (Auto) 0.3 Baso % (Auto) 0.0 Lymph # (Auto) 0.9 L [place] # (Auto) 0.7 Eos # (Auto) 0.0 Baso # (Auto) 0.0 Abs Immat Gran (auto) 0.05 H Absolute Neuts (auto) 6.2 Absolute Nucleated RBC 0.000 Nucleated RBC % (auto) 0.0 VBG pH VBG pCO2 VBG pO2 VBG HCO3 VBG O2 Saturation VBG Base Excess Anion Gap 13 Estim Creat Clear Calc 68.4 Estimated GFR 46 Random Glucose 183 H Lactic Acid Calcium 9.0 Total Bilirubin 0.2 AST 28 D ALT 32 H Alkaline Phosphatase 99 B-Natriuretic Peptide < 10 Total Protein 7.1 Albumin 3.7 COVID-19 ([facility]) COVID-19 Clin Com 08/12/21 08/12/21 08/12/21 01:02 01:03 01:21 MCV MCH MCHC RDW Plt Count MPV Immature Gran % (Auto) Neut % (Auto) Lymph % (Auto) [place] % (Auto) Eos % (Auto) Baso % (Auto) Lymph # (Auto) [place] # (Auto) Eos # (Auto) Baso # (Auto) Abs Immat Gran (auto) Absolute Neuts (auto) Absolute Nucleated RBC Nucleated RBC % (auto) VBG pH 7.51 H VBG pCO2 35 VBG pO2 134 VBG HCO3 28 H VBG O2 Saturation 99.0 VBG Base Excess 5.5 Anion Gap Estim Creat Clear Calc Estimated GFR Random Glucose Lactic Acid 1.1 Calcium Total Bilirubin AST ALT Alkaline Phosphatase B-Natriuretic Peptide Total Protein Albumin COVID-19 ([facility]WON) Positive A COVID-19 Clin Com See Note Imaging Radiologist's Impressions: Impressions Chest X-Ray 08/11/21 21:50 IMPRESSION: Increased interstitial markings and hazy opacities in the right upper/middle lobes raising the possibility of developing infiltrates in the appropriate clinical context. Assessment and Plan 55-year-old female with a past medical history of hypertension, hyperlipidemia, diabetes, Asthma/COPD, interval bowel syndrome, chronic pain, rheumatoid arthritis - on Humira, hepatitis-C, Graves disease, hemorrhoids, arthritis, vaccinated with Moderna vaccine including booster dose; presented to the hospital today with a chief complaint of shortness of breath. noted to have following conditions COVID pneumonia: Patient was diagnosed with COVID-19 on 08/08/2021. Patient is COVID-19 vaccinated including booster dose-Moderna vaccine. Patient started on Solu-Medrol Supplemental oxygen at 2 L currently. Not in respiratory distress. Patient was saturating 89-91% on room air. Id consult for further recommendations Will empirically start the patient on ceftriaxone and azithromycin. Asthma exacerbation: Patient on Solu-Medrol IV t.i.d.. Nebulizations Once moved to isolation room. chest pain: Atypical in nature. Posttussive. Currently resolved. D-dimer on 08/08/2021-less than 150. EKG nonischemic. troponin pending history of rheumatoid arthritis: Patient on Humira Q 2 weekly. History of diabetes: Insulin sliding scale. Monitor fingerstick glucose and ad just as needed. History of hypertension/ hyperlipidemia: Continue home medications. DVT prophylaxis: Lovenox Code status: Full code Quality Stroke Does the patient have a stroke diagnosis?: No VTE Prior VTE?: No VTE Risk Level:: Medical - moderate - high VTE Device Contraindication: Treatment Not Indicated VTE Drug Contraindication: N/A - Med Ordered
[2021-08-12] MEDS: cefTRIAXone sodium 1 GM in 0.9 % Sodium Chloride 50 ML IV (04:46)
[2021-08-12] MEDS: buPROPion HCl XL 150 MG TAB.ER.24H PO ×2 (05:34→08:36)
[2021-08-12] MEDS: Azithromycin 500 MG TABLET PO (05:34)
[2021-08-12 07:48] LABS: Hemoglobin 10.3 g/dl (12.0-16.0); Imm Gran Abs Auto 0.03 X10*3/uL (0.00-0.03); Imm Gran Pct Auto 0.7 % (0.0-0.4); Lymphocytes Absolute Auto 0.4 X10*3/uL (1.2-4.9); Lymphocytes Percent Auto 8.9 % (20-40); MANUAL DIFF FLAG SCAN; Mean Corpuscular HGB Conc 29.4 g/dl (31.0-35.0); Mean Corpuscular Hemoglobin 22.2 pg (27.0-33.0); Mean Corpuscular Volume 75.6 fL (80.0-98.0); Monocytes Absolute Auto 0.1 X10*3/uL (0.1-1.2); Monocytes Percent Auto 2.3 % (2-11); Neutrophils Absolute Auto 3.9 x10*3/uL (2.0-8.3); Neutrophils Percent Auto 88.1 % (45-73); Platelet Count 166 X10*3/uL (160-400); Red Blood Count 4.63 X10*6/uL (4.20-5.50); Red Cell Distribution Width 21.3 % (11.0-16.0); SCAN SMEAR FLAG 1; White Blood Count 4.4 X10*3/uL (4.8-10.8)
[2021-08-12 08:04] LABS: Anion Gap 11 (12-20); Blood Urea Nitrogen 13 mg/dL (9-16); Calcium 8.7 mg/dL (8.4-10.2); Carbon Dioxide 30 mmol/L (22-29); Chloride 102 mmol/L (96-108); Creatinine Clr Calc Pharmacy 84.3; Estimated Glomerular Filt Rate 59; Glucose Random 264 mg/dL (60-115); Potassium 3.9 mmol/L (3.3-5.1); Sodium 139 mmol/L (135-145)
[2021-08-12 08:13] LABS: Troponin-I High Sensitivity < 3.5 ng/L (<3.5-17.0)
[2021-08-12 08:19] LABS: SLIDE REVIEW VERIFIED
[2021-08-12] MEDS: Albuterol/Iprat 2.5/0.5MG 3 ML AMPUL.NEB INHALE ×2 (08:19→14:06)
--- NOTE | 2021-08-12 08:25 | PC.NURSE ---
slight exp wheeze. unlabored at rest.; skin pwd. axox3. c/o chest pain. monitor applied. receiving treatment.
--- NOTE | 2021-08-12 08:32 | PC.NURSE ---
audible wheezes fgollowiung treatment. sob with bed mobility
[2021-08-12] MEDS: Gabapentin 400 MG CAPSULE 800 MG PO ×3 (08:33→20:29)
[2021-08-12] MEDS: dilTIAZem HCL CD 180 MG CAP.ER.24H PO (08:34)
[2021-08-12] MEDS: Dicyclomine HCl 10 MG CAPSULE PO ×3 (08:36→20:30)
[2021-08-12] MEDS: Furosemide 20 MG TABLET PO (08:36)
[2021-08-12] MEDS: Lipase/Prot/Amylase 24/76/120K 1 CAP CAPSULE.DR 2 CAP PO ×4 (08:36→20:29)
[2021-08-12] MEDS: Sucralfate 1 GM TABLET PO (08:36)
[2021-08-12] MEDS: Sertraline HCL 100 MG TABLET PO (08:36)
[2021-08-12] MEDS: traMADoL HCL 50 MG TABLET PO ×4 (08:37→23:17)
[2021-08-12] MEDS: Ferrous Sulfate 324 MG TABLET.DR PO (08:37)
[2021-08-12] MEDS: Aspirin Enteric Coated 81 MG TABLET.DR PO (08:37)
[2021-08-12] MEDS: Folic Acid 1 MG TABLET PO (08:38)
[2021-08-12] MEDS: Losartan Potassium 25 MG TABLET PO (08:38)
[2021-08-12] MEDS: Enoxaparin Sodium 40 MG/0.4 ML SYRINGE SUBCUT (08:39)
[2021-08-12] MEDS: 0.9 % Sodium Chloride Flush 3 ML SYRINGE IVFLUSH ×2 (08:40→20:34)
[2021-08-12] MEDS: methylPREDNISolone Sod Succ 125 MG/2 ML VIAL 60 MG IVPUSH ×2 (08:40→20:29)
--- NOTE | 2021-08-12 08:44 | PC.NURSE ---
trial on room air5. sustained 89%. returned to 2L NC. awaits room on IMC.
--- NOTE | 2021-08-12 09:37 | PHA.MEDREC ---
Pharmacy Consult ? Medication Reconciliation Pharmacy has reviewed the medication reconciliation completed by Lauren. Patient use med[facility] from [facility]. Contact pharmacy for updated. There are multiple discrepanices from list complete overnight. Provider is aware of changes. Micaela Jeffers, rocíoD
[2021-08-12 10:13] LABS: Estimated Average Glucose 128 mg/dL; Hemoglobin A1c % 6.1 %
[2021-08-12] MEDS: Fluticasone/Vilanterol 100/25 BLST.W.DEV 1 PUFF INHALE (12:45)
[2021-08-12] MEDS: Remdesivir 200 MG in 0.9 % Sodium Chloride 210 ML 105 MG IV (16:27)
--- NOTE | 2021-08-12 16:57 | PC.NURSE ---
rn to rn yimi martinez on imc.
--- NOTE | 2021-08-12 17:09 | PC.NURSE ---
drinking soda most of the day. not diet soda
[2021-08-12 17:52] LABS: Glucose, Whole Blood 426 mg/dL (60-115)
[2021-08-12] MEDS: Insulin Lispro 100 UNIT/ML 3 ML VIAL SUBCUT ×2 (18:19→20:46)
[2021-08-12] MEDS: Insulin Lispro 100 UNIT/ML 3 ML VIAL 10 UNIT SUBCUT (18:29)
[2021-08-12] MEDS: Atorvastatin Calcium 20 MG TABLET PO (20:29)
[2021-08-12] MEDS: Omeprazole 40 MG CAPSULE.DR PO (20:29)
[2021-08-12] MEDS: lamoTRIgine 100 MG TABLET 200 MG PO (20:30)
[2021-08-12] MEDS: Montelukast Sodium 10 MG TABLET PO (20:30)
[2021-08-12 20:58] LABS: Glucose, Whole Blood 288 mg/dL (60-115)
[2021-08-13] VITALS (8 sets, daily range): BP systolic 115–146; BP diastolic 57–94; PULSE 86–107; RESP 18–20; TEMP 36.3–37; O2SAT 92–98
[2021-08-13 07:16] LABS: Hemoglobin 9.8 g/dl (12.0-16.0); Mean Corpuscular HGB Conc 28.8 g/dl (31.0-35.0); Mean Corpuscular Hemoglobin 22.2 pg (27.0-33.0); Mean Corpuscular Volume 77.1 fL (80.0-98.0); Mean Platelet Volume 10.5 fL (9.4-12.3); Platelet Count 182 X10*3/uL (160-400); Red Blood Count 4.41 X10*6/uL (4.20-5.50); Red Cell Distribution Width 21.4 % (11.0-16.0); White Blood Count 9.3 X10*3/uL (4.8-10.8)
[2021-08-13 07:29] LABS: D Dimer High Sensitivity < 150 NG/ML
[2021-08-13 07:33] LABS: Glucose, Whole Blood 354 mg/dL (60-115)
[2021-08-13 07:46] LABS: Anion Gap 11 (12-20); Blood Urea Nitrogen 16 mg/dL (9-16); C Reactive Protein 3.02 mg/dL (< or = 0.50); Calcium 8.8 mg/dL (8.4-10.2); Carbon Dioxide 27 mmol/L (22-29); Chloride 105 mmol/L (96-108); Creatinine Clr Calc Pharmacy 84.3; Estimated Glomerular Filt Rate 59; Glucose Fasting 391 mg/dL (60-99); Lactate Dehydrogenase 196 U/L (122-220); Potassium 3.9 mmol/L (3.3-5.1); Sodium 139 mmol/L (135-145)
[2021-08-13] MEDS: Insulin Lispro 100 UNIT/ML 3 ML VIAL SUBCUT ×4 (08:22→20:38)
[2021-08-13] MEDS: Sucralfate 1 GM TABLET PO (08:23)
[2021-08-13] MEDS: Docusate Sodium 100 MG CAPSULE PO (08:23)
[2021-08-13] MEDS: Enoxaparin Sodium 40 MG/0.4 ML SYRINGE SUBCUT (08:23)
[2021-08-13] MEDS: methylPREDNISolone Sod Succ 125 MG/2 ML VIAL 60 MG IVPUSH ×2 (08:23→20:37)
[2021-08-13] MEDS: traMADoL HCL 50 MG TABLET PO ×3 (08:23→18:35)
[2021-08-13] MEDS: Lipase/Prot/Amylase 24/76/120K 1 CAP CAPSULE.DR 2 CAP PO ×4 (08:23→20:40)
[2021-08-13] MEDS: dilTIAZem HCL CD 180 MG CAP.ER.24H PO (08:23)
[2021-08-13] MEDS: Dicyclomine HCl 10 MG CAPSULE PO ×4 (08:23→20:40)
[2021-08-13] MEDS: Ferrous Sulfate 324 MG TABLET.DR PO (08:23)
[2021-08-13] MEDS: Aspirin Enteric Coated 81 MG TABLET.DR PO (08:24)
[2021-08-13] MEDS: buPROPion HCl XL 150 MG TAB.ER.24H PO (08:24)
[2021-08-13] MEDS: Sertraline HCL 100 MG TABLET PO (08:24)
[2021-08-13] MEDS: Furosemide 20 MG TABLET PO (08:24)
[2021-08-13] MEDS: Losartan Potassium 25 MG TABLET PO (08:24)
[2021-08-13] MEDS: Folic Acid 1 MG TABLET PO (08:24)
[2021-08-13] MEDS: 0.9 % Sodium Chloride Flush 3 ML SYRINGE IVFLUSH ×3 (08:24→20:37)
[2021-08-13] MEDS: Gabapentin 400 MG CAPSULE 800 MG PO ×2 (08:24→20:39)
--- NOTE | 2021-08-13 08:31 | MHC.CM.PN ---
CM spoke to Patient over the phone, with a Park Interpre[employer], on her cell # [phone]. Patient lives in an apartment with her , Son, and her Son's girlfriend and Patient uses a walker at times to assist with mobility. Patient's goal is to return home/ no services and CM has initiated and will follow for dc planning. PCP is at [facility].
[2021-08-13 11:21] LABS: Glucose, Whole Blood 228 mg/dL (60-115)
[2021-08-13] MEDS: Fluticasone/Vilanterol 100/25 BLST.W.DEV 1 PUFF INHALE (12:11)
--- NOTE | 2021-08-13 12:16 | MHC.CLN ---
RECOMMEND 1800DM 2GM NA DIET R/T HX DM WITH A1C 6.1% MONITOR PO INTAKE JED
[2021-08-13] MEDS: Insulin Glargine,Hum.rec.anlog 100 UNIT/ML 10 ML VIAL 12 UNIT SUBCUT (12:19)
--- NOTE | 2021-08-13 13:49 | HO.PM.IMPN ---
Subjective Subjective Date of Service: 08/13/21 Interval History: the patient was seen and evaluated this morning Laying in bed, feels better today overall, on 2 L of oxygen still reporting cough and shortness of breath No reported other overnight events. Systemic review: No fever, chills or weakness No chest pain, palpitation coughing, dyspnea No abdominal pain, nausea or vomiting No urinary symptoms No any rash or wounds Physical Exam Vital Signs: Vital Signs: Last Vital Signs Temp 97.4 F 08/13/21 11:51 Pulse 91 08/13/21 11:51 Resp 19 08/13/21 11:51 BP 116/64 08/13/21 11:51 Pulse Ox 95 08/13/21 11:51 BMI result Body Mass Index 48.6 Const: Other: Constitutional : Alert, interactive Neck : Normal inspection, Supple Cardiovascular : RRR, S1 S2, no lower extremity edema Respiratory : chest wall moving bilaterally, in mild distress, on nasal cannula oxygen supplement Gastrointestinal: soft, lax, Normal bowel sounds, Non tender Skin : Warm, Dry Neurological : Alert & oriented x3, No focal deficit Objective Data Active Medications Acetaminophen (Acetaminophen 325 Mg Tablet) 650 mg PO Q6H PRN PRN Reason: Pain, Mild (Pain Scale 1-3) Albuterol Sulfate (Albuterol Sulfate 90 Mcg 8 Gm Inhaler) 2 puff INHALE RQ4H PRN PRN Reason: sob Lipase/Protease/Amylase (Lipase/Prot/Amylase 24/76/120k 1 Cap Capsule.) 2 cap PO QID [facility] Last Admin: 08/13/21 12:20 Dose: 2 cap Documented by: EWA Aspirin (Aspirin Enteric Coated 81 Mg Tablet.) 81 mg PO DAILY@0700 [facility] Last Admin: 08/13/21 08:24 Dose: 81 mg Documented by: EWA Atorvastatin Calcium (Atorvastatin Calcium 20 Mg Tablet) 20 mg PO BEDTIME [facility] Last Admin: 08/12/21 20:29 Dose: 20 mg Documented by: MARY Bupropion HCl (Bupropion Hcl Xl 150 Mg Tab.Er.24h) 150 mg PO DAILY [facility] Last Admin: 08/13/21 08:24 Dose: 150 mg Documented by: EWA Dextrose (Dextrose 50 % 25 Gm/50 Ml Vial) 25 gm IVPUSH Q15M PRN; Protocol PRN Reason: per Hypoglycemia Standing Ord. Dicyclomine HCl (Dicyclomine Hcl 10 Mg Capsule) 10 mg PO QIDACHS [facility] Last Admin: 08/13/21 12:19 Dose: 10 mg Documented by: EWA Diltiazem HCl (Diltiazem Hcl Cd 180 Mg Cap.Er.24h) 180 mg PO DAILY [facility]; Protocol Last Admin: 08/13/21 08:23 Dose: 180 mg Documented by: EWA Docusate Sodium (Docusate Sodium 100 Mg Capsule) 100 mg PO DAILY [facility] Last Admin: 08/13/21 08:23 Dose: 100 mg Documented by: EWA Enoxaparin Sodium (Enoxaparin Sodium 40 Mg/0.4 Ml Syringe) 40 mg SUBCUT DAILY@0700 [facility] Last Admin: 08/13/21 08:23 Dose: 40 mg Documented by: EWA Ferrous Sulfate (Ferrous Sulfate 324 Mg Tablet.) 324 mg PO DAILY [facility] Last Admin: 08/13/21 08:23 Dose: 324 mg Documented by: EWA Fluticasone/Vilanterol (Fluticasone/Vilanterol 100/25 Blst.W.Dev) 1 puff INHALE DAILY [facility] Last Admin: 08/13/21 12:11 Dose: 1 puff Documented by: EWA Comments: MED IN COVID ROOM. PATIENT TOOK MED. Folic Acid (Folic Acid 1 Mg Tablet) 1 mg PO DAILY [facility] Last Admin: 08/13/21 08:24 Dose: 1 mg Documented by: EWA Furosemide (Furosemide 20 Mg Tablet) 20 mg PO DAILY [facility]; Protocol Last Admin: 08/13/21 08:24 Dose: 20 mg Documented by: EWA Gabapentin (Gabapentin 400 Mg Capsule) 800 mg PO TID [facility] Last Admin: 08/13/21 08:24 Dose: 800 mg Documented by: EWA Glucose (Glucose Gel 15 Gm Gel..Gram.) 15 gm PO Q15M PRN; Protocol PRN Reason: per Hypoglycemia Standing Ord. Remdesivir 100 mg/ Sodium (Chloride) 230 mls @ 115 mls/hr IV Q24H [facility] Stop: 08/16/21 15:59 Insulin Glargine (Insulin Glargine,Hum.Rec.Anlog 100 Unit/Ml 10 Ml Vial) 12 unit SUBCUT DAILY [facility] Last Admin: 08/13/21 12:19 Dose: 12 unit Documented by: EWA Insulin Human Lispro (Insulin Lispro 100 Unit/Ml 3 Ml Vial) 0 unit SUBCUT QIDACHS [facility]; Protocol Last Admin: 08/13/21 12:19 Dose: 4 unit Documented by: EWA Lamotrigine (Lamotrigine 100 Mg Tablet) 200 mg PO BEDTIME [facility] Last Admin: 08/12/21 20:30 Dose: 200 mg Documented by: MARY Lorazepam (Lorazepam 0.5 Mg Tablet) 0.5 mg PO BID PRN PRN Reason: anxiety Losartan Potassium (Losartan Potassium 25 Mg Tablet) 25 mg PO DAILY [facility]; Protocol Last Admin: 08/13/21 08:24 Dose: 25 mg Documented by: EWA Melatonin (Melatonin 3 Mg Tablet) 6 mg PO BEDTIME PRN PRN Reason: Insomnia Methylprednisolone Sodium Succinate (Methylprednisolone Sod Succ 125 Mg/2 Ml Vial) 60 mg IVPUSH Q12H [facility] Last Admin: 08/13/21 08:23 Dose: 60 mg Documented by: EWA Montelukast Sodium (Montelukast Sodium 10 Mg Tablet) 10 mg PO BEDTIME [facility] Last Admin: 08/12/21 20:30 Dose: 10 mg Documented by: MARY Morphine Sulfate (Morphine Sulfate 4 Mg/Ml Cartridge) 1 mg IVPUSH Q4H PRN; Protocol PRN Reason: Pain, SOB Omeprazole (Omeprazole 40 Mg Capsule.Dr) 40 mg PO BEDTIME [facility] Last Admin: 08/12/21 20:29 Dose: 40 mg Documented by: MARY Senna (Sennosides 8.6 Mg Tablet) 17.2 mg PO BEDTIME PRN PRN Reason: Constipation Sertraline HCl (Sertraline Hcl 100 Mg Tablet) 100 mg PO DAILY [facility] Last Admin: 08/13/21 08:24 Dose: 100 mg Documented by: EWA Sodium Chloride (0.9 % Sodium Chloride Flush 3 Ml Syringe) 3 ml IVFLUSH QSHIFT [facility] Last Admin: 08/13/21 08:24 Dose: 3 ml Documented by: EWA Sucralfate (Sucralfate 1 Gm Tablet) 1 gm PO DAILY [facility] Last Admin: 08/13/21 08:23 Dose: 1 gm Documented by: EWA Tramadol HCl (Tramadol Hcl 50 Mg Tablet) 50 mg PO Q6H [facility] Last Admin: 08/13/21 12:20 Dose: 50 mg Documented by: EWA Zolpidem Tartrate (Zolpidem Tartrate 5 Mg Tablet) 10 mg PO BEDTIME PRN PRN Reason: Insomnia Labs CBC & Chem 7: 08/13/21 06:54 08/13/21 06:54 Labs: Laboratory Results - last 24 hr 08/12/21 08/12/21 08/13/21 17:48 20:39 06:54 MCV 77.1 L MCH 22.2 L MCHC 28.8 L RDW 21.4 H Plt Count 182 MPV 10.5 Absolute Nucleated RBC 0.000 Nucleated RBC % (auto) 0.0 D-Dimer High Sensitivty Anion Gap Estim Creat Clear Calc Estimated GFR POC Glucose 426 H* 288 H Fasting Glucose Calcium Lactate Dehydrogenase C-Reactive Protein 08/13/21 08/13/21 08/13/21 06:54 06:54 07:27 MCV MCH MCHC RDW Plt Count MPV Absolute Nucleated RBC Nucleated RBC % (auto) D-Dimer High Sensitivty < 150 Anion Gap 11 L Estim Creat Clear Calc 84.3 Estimated GFR 59 POC Glucose 354 H* Fasting Glucose 391 H* Calcium 8.8 Lactate Dehydrogenase 196 C-Reactive Protein 3.02 H 08/13/21 11:17 MCV MCH MCHC RDW Plt Count MPV Absolute Nucleated RBC Nucleated RBC % (auto) D-Dimer High Sensitivty Anion Gap Estim Creat Clear Calc Estimated GFR POC Glucose 228 H Fasting Glucose Calcium Lactate Dehydrogenase C-Reactive Protein Microbiology Microbiology Results: Microbiology 08/12/21 01:02 Blood Culture - Preliminary Blood - Venous No growth after 24 hours. 08/12/21 01:02 Blood Culture - Preliminary Blood - Venous No growth after 24 hours. Assessment and Plan (1) Asthma exacerbation: Status: Acute (2) Hypoxemia: Status: Acute (3) COVID-19: Status: Acute Assessment and Plan: 55-year-old female with a past medical history of hypertension, hyperlipidemia, diabetes, ? Asthma/COPD, interval bowel syndrome, chronic pain, rheumatoid arthritis - on Humira, hepatitis-C, Graves disease, hemorrhoids, arthritis, vaccinated with Moderna vaccine including booster dose; presented to the hospital today with a chief complaint of shortness of breath.? noted to have following conditions hypoxia 2/2 COVID pneumonia diagnosed with COVID-19 on 08/08/2021. Patient is COVID-19 vaccinated including booster dose-Moderna vaccine. continue Solu-Medrol Supplemental oxygen at 2 L currently.? to do home O2 evaluation tomorrow morning id input appreciated, started remdesivir day 2 Asthma exacerbation: Patient on Solu-Medrol IV t.i.d..? inhalers. ?history of rheumatoid arthritis Patient on methotrexate and Humira Q 2 weekly.? History of diabetes:? Insulin sliding scale Monitor fingerstick glucose and adjust as needed.? History of hypertension/ hyperlipidemia Continue home medications.? DVT prophylaxis:? Lovenox Code status:? Full code Quality Stroke Does the patient have a stroke diagnosis?: No VTE Prior VTE?: No VTE Risk Level:: Medical - moderate - high VTE Device Contraindication: Treatment Not Indicated VTE Drug Contraindication: N/A - Med Ordered
[2021-08-13 14:36] LABS: Glucose, Whole Blood 303 mg/dL (60-115)
[2021-08-13] MEDS: Remdesivir 100 MG in 0.9 % Sodium Chloride 230 ML 115 MG IV (14:38)
--- NOTE | 2021-08-13 15:44 | PC.NURSE ---
Patient rang and stated she feels dizzy and like her sugar is low. Also stating her fingers look black. POC checked and was 303. Vital signs all stable. o2 sat 95% on 2L. + CMS to fingers. No discoloration and all feel warm. Reassured patient. Will continue to monitor.
[2021-08-13 16:24] LABS: Glucose, Whole Blood 305 mg/dL (60-115)
[2021-08-13 20:26] LABS: Glucose, Whole Blood 338 mg/dL (60-115)
[2021-08-13] MEDS: lamoTRIgine 100 MG TABLET 200 MG PO (20:40)
[2021-08-13] MEDS: Atorvastatin Calcium 20 MG TABLET PO (20:40)
[2021-08-13] MEDS: Omeprazole 40 MG CAPSULE.DR PO (20:40)
[2021-08-13] MEDS: Montelukast Sodium 10 MG TABLET PO (20:40)
--- NOTE | 2021-08-13 21:31 | PM.EVENT ---
Event Note Date of Service: 08/13/21 Event Note: Bacteremia: Blood cx Growing GNR c/w Ceftriaxone and Azithromycin.
--- NOTE | 2021-08-13 22:03 | P.CNID_ITS ---
History of Present Illness Data of Consult Service Date: 08/13/21 Requesting physician: Munira Angel Primary Care Provider: Unknown Physician HPI Reason for consult: COVID infection She presents with shortness of breath and cough for five days She has no high fever or chills. She had positive test on 08/08 for COVID She is on 2 liters oxygen Review of Systems Verdana 4l Review of Systems: Yes all other systems are reviewed and Verdana 4d are negative [facility] Past Medical History Medical History (Updated 08/17/21 @ 00:01 by Kathie Anderson) Anemia Arthritis Asthma Bacterial pneumonia Bleeding hemorrhoid Chronic fatigue COPD (chronic obstructive pulmonary disease) Diabetes GERD (gastroesophageal reflux disease) Graves disease Hepatitis C HTN (hypertension) Hyperlipidemia IBS (irritable bowel syndrome) Lumbar radiculopathy Morbid obesity Multinodular thyroid Osteoarthritis Seropositive rheumatoid arthritis Tubular adenoma of colon Vitamin D deficiency Family History Family History Mother Diabetes HTN (hypertension) CVD (cardiovascular disease) Heart problem Father Diabetes Brother Autism History of open heart surgery CVD (cardiovascular disease) Diabetes Son Diabetes Maternal Grandmother Diabetes Maternal Grandfather Diabetes Family history: reviewed and not pertinent Surgical History Surgical History History of esophagogastroduodenoscopy (EGD) Hx of appendectomy Hx of cholecystectomy Hx of colonoscopy Social History Social History Household Members: Spouse, Children and Other Housing: Apartment Do you presently have visiting nurse or other home services: No Alcohol intake: never Patient Tobacco Use Status: Never used Tobacco service: No Current occupational status: unemployed and disabled Current occupation: rt handed Meds Allergies Allergy/AdvReac Type Severity Reaction Status Date / Time metoclopramide [Reglan] AdvReac Unknown diarrhea, Verified 08/11/21 21:38 vomiting Active Medications: Current Medications Acetaminophen (Acetaminophen 325 Mg Tablet) 650 mg PO Q6H PRN PRN Reason: Pain, Mild (Pain Scale 1-3) Albuterol Sulfate (Albuterol Sulfate 90 Mcg 8 Gm Inhaler) 2 puff INHALE RQ4H PRN PRN Reason: sob Lipase/Protease/Amylase (Lipase/Prot/Amylase //120k 1 Cap Capsule.) 2 cap PO QID [facility] Last Admin: 08/13/21 20:40 Dose: 2 cap Documented by: Aspirin (Aspirin Enteric Coated 81 Mg Tablet.) 81 mg PO DAILY@0700 [facility] Last Admin: 08/13/21 08:24 Dose: 81 mg Documented by: Atorvastatin Calcium (Atorvastatin Calcium 20 Mg Tablet) 20 mg PO BEDTIME [facility] Last Admin: 08/13/21 20:40 Dose: 20 mg Documented by: Azithromycin (Azithromycin 500 Mg Tablet) 500 mg PO Q24H [facility] Bupropion HCl (Bupropion Hcl Xl 150 Mg Tab.Er.24h) 150 mg PO DAILY [facility] Last Admin: 08/13/21 08:24 Dose: 150 mg Documented by: Dextrose (Dextrose 50 % 25 Gm/50 Ml Vial) 25 gm IVPUSH Q15M PRN; Protocol PRN Reason: per Hypoglycemia Standing Ord. Dicyclomine HCl (Dicyclomine Hcl 10 Mg Capsule) 10 mg PO QIDACHS [facility] Last Admin: 08/13/21 20:40 Dose: 10 mg Documented by: Diltiazem HCl (Diltiazem Hcl Cd 180 Mg Cap.Er.24h) 180 mg PO DAILY [facility]; Protocol Last Admin: 08/13/21 08:23 Dose: 180 mg Documented by: Docusate Sodium (Docusate Sodium 100 Mg Capsule) 100 mg PO DAILY [facility] Last Admin: 08/13/21 08:23 Dose: 100 mg Documented by: Enoxaparin Sodium (Enoxaparin Sodium 40 Mg/0.4 Ml Syringe) 40 mg SUBCUT DAILY@0700 [facility] Last Admin: 08/13/21 08:23 Dose: 40 mg Documented by: Ferrous Sulfate (Ferrous Sulfate 324 Mg Tablet.) 324 mg PO DAILY [facility] Last Admin: 08/13/21 08:23 Dose: 324 mg Documented by: Fluticasone/Vilanterol (Fluticasone/Vilanterol 100/25 Blst.W.Dev) 1 puff INHALE DAILY [facility] Last Admin: 08/13/21 12:11 Dose: 1 puff Documented by: Folic Acid (Folic Acid 1 Mg Tablet) 1 mg PO DAILY [facility] Last Admin: 08/13/21 08:24 Dose: 1 mg Documented by: Furosemide (Furosemide 20 Mg Tablet) 20 mg PO DAILY [facility]; Protocol Last Admin: 08/13/21 08:24 Dose: 20 mg Documented by: Gabapentin (Gabapentin 400 Mg Capsule) 800 mg PO TID [facility] Last Admin: 08/13/21 20:39 Dose: 800 mg Documented by: Glucose (Glucose Gel 15 Gm Gel..Gram.) 15 gm PO Q15M PRN; Protocol PRN Reason: per Hypoglycemia Standing Ord. Remdesivir 100 mg/ Sodium (Chloride) 230 mls @ 115 mls/hr IV Q24H [facility] Stop: 08/16/21 15:59 Last Infusion: 08/13/21 17:54 Dose: Infused Documented by: Ceftriaxone Sodium 1 gm/ (Sodium Chloride) 50 mls @ 100 mls/hr IV Q24H [facility] Insulin Glargine (Insulin Glargine,Hum.Rec.Anlog 100 Unit/Ml 10 Ml Vial) 12 unit SUBCUT DAILY [facility] Last Admin: 08/13/21 12:19 Dose: 12 unit Documented by: Insulin Human Lispro (Insulin Lispro 100 Unit/Ml 3 Ml Vial) 0 unit SUBCUT QIDACHS [facility]; Protocol Last Admin: 08/13/21 20:38 Dose: 10 unit Documented by: Lamotrigine (Lamotrigine 100 Mg Tablet) 200 mg PO BEDTIME [facility] Last Admin: 08/13/21 20:40 Dose: 200 mg Documented by: Lorazepam (Lorazepam 0.5 Mg Tablet) 0.5 mg PO BID PRN PRN Reason: anxiety Losartan Potassium (Losartan Potassium 25 Mg Tablet) 25 mg PO DAILY [facility]; Protocol Last Admin: 08/13/21 08:24 Dose: 25 mg Documented by: Melatonin (Melatonin 3 Mg Tablet) 6 mg PO BEDTIME PRN PRN Reason: Insomnia Methylprednisolone Sodium Succinate (Methylprednisolone Sod Succ 125 Mg/2 Ml Vial) 60 mg IVPUSH Q12H [facility] Last Admin: 08/13/21 20:37 Dose: 60 mg Documented by: Montelukast Sodium (Montelukast Sodium 10 Mg Tablet) 10 mg PO BEDTIME [facility] Last Admin: 08/13/21 20:40 Dose: 10 mg Documented by: Morphine Sulfate (Morphine Sulfate 4 Mg/Ml Cartridge) 1 mg IVPUSH Q4H PRN; Protocol PRN Reason: Pain, SOB Omeprazole (Omeprazole 40 Mg Capsule.Dr) 40 mg PO BEDTIME [facility] Last Admin: 08/13/21 20:40 Dose: 40 mg Documented by: Senna (Sennosides 8.6 Mg Tablet) 17.2 mg PO BEDTIME PRN PRN Reason: Constipation Sertraline HCl (Sertraline Hcl 100 Mg Tablet) 100 mg PO DAILY [facility] Last Admin: 08/13/21 08:24 Dose: 100 mg Documented by: Sodium Chloride (0.9 % Sodium Chloride Flush 3 Ml Syringe) 3 ml IVFLUSH QSHIFT [facility] Last Admin: 08/13/21 20:37 Dose: 3 ml Documented by: Sucralfate (Sucralfate 1 Gm Tablet) 1 gm PO DAILY [facility] Last Admin: 08/13/21 08:23 Dose: 1 gm Documented by: Tramadol HCl (Tramadol Hcl 50 Mg Tablet) 50 mg PO Q6H [facility] Last Admin: 08/13/21 18:35 Dose: 50 mg Documented by: Zolpidem Tartrate (Zolpidem Tartrate 5 Mg Tablet) 10 mg PO BEDTIME PRN PRN Reason: Insomnia Home Medications Medication Instructions Recorded Confirmed Last Taken Type albuterol sulfate 1 amp INHALATION 08/12/21 08/12/21 Unknown History Q6H PRN aspirin 81 mg 81 mg PO QPM 08/12/21 08/12/21 Unknown History tablet,delayed release budesonide-formot 2 puff PO BID 08/12/21 08/12/21 Unknown History lilibeth HFA 160 mcg-4.5 mcg/actuation aerosol inhaler (Symbicort) bupropion HCl 150 150 mg PO QAM 08/12/21 08/12/21 Unknown History mg 24 hr tablet, extended release dicyclomine 10 mg 10 mg PO QIDACHS 08/12/21 08/12/21 Unknown History capsule diltiazem HCl 180 180 mg PO QAM 08/12/21 08/12/21 Unknown History mg capsule,extended release 24 hr docusate sodium 100 mg PO DAILY 08/12/21 08/12/21 Unknown History 100 mg capsule ferrous sulfate 1 tab PO BID 08/12/21 08/12/21 Unknown History 325 mg (65 mg iron) tablet (FeroSul) folic acid 1 mg 1 mg PO QAM 08/12/21 08/12/21 Unknown History tablet furosemide 20 mg 20 mg PO QAM 08/12/21 08/12/21 Unknown History tablet gabapentin 800 mg 800 mg PO TID 08/12/21 08/12/21 Unknown History tablet lamotrigine 200 1 tab PO BEDTIME 08/12/21 08/12/21 Unknown History mg tablet lidocaine 5 % 1 patch TOPICAL 08/12/21 08/12/21 Unknown History topical patch DAILY lorazepam 0.5 mg 0.5 mg PO BID 08/12/21 08/12/21 Unknown History tablet PRN losartan 25 mg 25 mg PO QAM 08/12/21 08/12/21 Unknown History tablet metformin 500 mg 1,000 mg PO 08/12/21 08/12/21 Unknown History tablet,extended BIDAC release 24 hr methotrexate 5 tab PO FR 08/12/21 08/12/21 Unknown History sodium 2.5 mg tablet montelukast 10 mg 10 mg PO QPM 08/12/21 08/12/21 Unknown History tablet multivitamin 1 tab PO QPM 08/12/21 08/12/21 Unknown History ondansetron 8 mg 8 mg PO BID-TID 08/12/21 08/12/21 Unknown History disintegrating PRN tablet sertraline 100 mg 100 mg PO QAM 08/12/21 08/12/21 Unknown History tablet simvastatin 40 mg 1 tab PO BEDTIME 08/12/21 08/12/21 Unknown History tablet sucralfate 1 gram 1 g PO DAILY 08/12/21 08/12/21 Unknown History tablet tiotropium 1 cap INHALATION 08/12/21 08/12/21 Unknown History bromide 18 mcg DAILY capsule with inhalation device (Spiriva with HandiHaler) tramadol 50 mg 50 mg PO Q6H 08/12/21 08/12/21 Unknown History tablet zolpidem 10 mg 10 mg PO BEDTIME 08/12/21 08/12/21 Unknown History tablet PRN Physical Exam Verdana 4l Vital Signs: Verdana 4d Verdana 4d Vital Signs: Verdana 4d Verdana 4Bd Last Vital Signs Verdana 4d Purchasing Buyer New 4d Purchasing Buyer New 4d Temp 98.0 F 08/13/21 19:36 Purchasing Buyer New 4d Pulse 89 08/13/21 19:36 Purchasing Buyer New 4d Resp 19 08/13/21 19:36 BP 138/69 08/13/21 19:36 Pulse Ox 98 08/13/21 19:36 BMI result Body Mass Index 48.6 Const: General: cooperative Eyes: Pupils: Equal, round and reactive pupils present Resp: Effort & Inspection: normal respiratory effort Cardio: Rate: regular rate Rhythm: regular rhythm GI: Palpation (GI): Tenderness to palpation present (GI) Neuro: Cranial nerves: Yes Equal, round and reactive pupils present Extrem: General: Yes normal to inspection Results Labs CBC & Chem 7: 08/15/21 05:59 08/15/21 05:59 Labs: Short CBC 08/13/21 Range/Units 06:54 WBC 9.3 (4.8-10.8) X10*3/uL Hgb 9.8 L (12.0-16.0) g/dl Hct 34.0 L (37.0-47.0) % Plt Count 182 (160-400) X10*3/uL BMP 08/13/21 06:54 Sodium 139 Potassium 3.9 Chloride 105 Carbon Dioxide 27 BUN 16 Creatinine 0.99 Calcium 8.8 Microbiology Microbiology Results: Microbiology 08/12/21 01:02 Blood - Venous Blood Culture - Preliminary Prelim: GNR Gram Stain only 08/12/21 01:02 Blood - Venous Blood Culture - Preliminary No growth after 24 hours. Assessment and Plan (1) Lab test positive for detection of COVID-19 virus: Status: Acute Vaccinated patient with low oxygen demand on 2 l He has immunosuppression,Humira (2) Seropositive rheumatoid arthritis: Status: Acute (3) Bacterial pneumonia: Status: Resolved Plan Would continue oxygen Remdesivir Continue steroids Would continue Ceftriaxone and finish with 10 d total antibiotics,Ceftin
--- NOTE | 2021-08-13 22:03 | W.PM.IDCN ---
History of Present Illness Data of Consult Service Date: 08/13/21 Requesting physician: Munira Angel Primary Care Provider: Unknown Physician HPI Reason for consult: COVID infection She presents with shortness of breath and cough for five days She has no high fever or chills. She had positive test on 08/08 for COVID She is on 2 liters oxygen Review of Systems Review of Systems: Yes all other systems are reviewed and are negative [facility] Past Medical History Medical History (Updated 08/17/21 @ 00:01 by Kathie Anderson) Anemia Arthritis Asthma Bacterial pneumonia Bleeding hemorrhoid Chronic fatigue COPD (chronic obstructive pulmonary disease) Diabetes GERD (gastroesophageal reflux disease) Graves disease Hepatitis C HTN (hypertension) Hyperlipidemia IBS (irritable bowel syndrome) Lumbar radiculopathy Morbid obesity Multinodular thyroid Osteoarthritis Seropositive rheumatoid arthritis Tubular adenoma of colon Vitamin D deficiency Family History Family History Mother Diabetes HTN (hypertension) CVD (cardiovascular disease) Heart problem Father Diabetes Brother Autism History of open heart surgery CVD (cardiovascular disease) Diabetes Son Diabetes Maternal Grandmother Diabetes Maternal Grandfather Diabetes Family history: reviewed and not pertinent Surgical History Surgical History History of esophagogastroduodenoscopy (EGD) Hx of appendectomy Hx of cholecystectomy Hx of colonoscopy Social History Social History Household Members: Spouse, Children and Other Housing: Apartment Do you presently have visiting nurse or other home services: No Alcohol intake: never Patient Tobacco Use Status: Never used Tobacco service: No Current occupational status: unemployed and disabled Current occupation: rt handed Meds Allergies Allergy/AdvReac Type Severity Reaction Status Date / Time metoclopramide [Reglan] AdvReac Unknown diarrhea, Verified 08/11/21 21:38 vomiting Active Medications: Current Medications Acetaminophen (Acetaminophen 325 Mg Tablet) 650 mg PO Q6H PRN PRN Reason: Pain, Mild (Pain Scale 1-3) Albuterol Sulfate (Albuterol Sulfate 90 Mcg 8 Gm Inhaler) 2 puff INHALE RQ4H PRN PRN Reason: sob Lipase/Protease/Amylase (Lipase/Prot/Amylase 24/76/120k 1 Cap Capsule.) 2 cap PO QID [facility] Last Admin: 08/13/21 20:40 Dose: 2 cap Documented by: Aspirin (Aspirin Enteric Coated 81 Mg Tablet.) 81 mg PO DAILY@0700 [facility] Last Admin: 08/13/21 08:24 Dose: 81 mg Documented by: Atorvastatin Calcium (Atorvastatin Calcium 20 Mg Tablet) 20 mg PO BEDTIME [facility] Last Admin: 08/13/21 20:40 Dose: 20 mg Documented by: Azithromycin (Azithromycin 500 Mg Tablet) 500 mg PO Q24H [facility] Bupropion HCl (Bupropion Hcl Xl 150 Mg Tab.Er.24h) 150 mg PO DAILY [facility] Last Admin: 08/13/21 08:24 Dose: 150 mg Documented by: Dextrose (Dextrose 50 % 25 Gm/50 Ml Vial) 25 gm IVPUSH Q15M PRN; Protocol PRN Reason: per Hypoglycemia Standing Ord. Dicyclomine HCl (Dicyclomine Hcl 10 Mg Capsule) 10 mg PO QIDACHS [facility] Last Admin: 08/13/21 20:40 Dose: 10 mg Documented by: Diltiazem HCl (Diltiazem Hcl Cd 180 Mg Cap.Er.24h) 180 mg PO DAILY [facility]; Protocol Last Admin: 08/13/21 08:23 Dose: 180 mg Documented by: Docusate Sodium (Docusate Sodium 100 Mg Capsule) 100 mg PO DAILY [facility] Last Admin: 08/13/21 08:23 Dose: 100 mg Documented by: Enoxaparin Sodium (Enoxaparin Sodium 40 Mg/0.4 Ml Syringe) 40 mg SUBCUT DAILY@0700 [facility] Last Admin: 08/13/21 08:23 Dose: 40 mg Documented by: Ferrous Sulfate (Ferrous Sulfate 324 Mg Tablet.) 324 mg PO DAILY [facility] Last Admin: 08/13/21 08:23 Dose: 324 mg Documented by: Fluticasone/Vilanterol (Fluticasone/Vilanterol 100/25 Blst.W.Dev) 1 puff INHALE DAILY [facility] Last Admin: 08/13/21 12:11 Dose: 1 puff Documented by: Folic Acid (Folic Acid 1 Mg Tablet) 1 mg PO DAILY [facility] Last Admin: 08/13/21 08:24 Dose: 1 mg Documented by: Furosemide (Furosemide 20 Mg Tablet) 20 mg PO DAILY [facility]; Protocol Last Admin: 08/13/21 08:24 Dose: 20 mg Documented by: Gabapentin (Gabapentin 400 Mg Capsule) 800 mg PO TID [facility] Last Admin: 08/13/21 20:39 Dose: 800 mg Documented by: Glucose (Glucose Gel 15 Gm Gel..Gram.) 15 gm PO Q15M PRN; Protocol PRN Reason: per Hypoglycemia Standing Ord. Remdesivir 100 mg/ Sodium (Chloride) 230 mls @ 115 mls/hr IV Q24H [facility] Stop: 08/16/21 15:59 Last Infusion: 08/13/21 17:54 Dose: Infused Documented by: Ceftriaxone Sodium 1 gm/ (Sodium Chloride) 50 mls @ 100 mls/hr IV Q24H [facility] Insulin Glargine (Insulin Glargine,Hum.Rec.Anlog 100 Unit/Ml 10 Ml Vial) 12 unit SUBCUT DAILY [facility] Last Admin: 08/13/21 12:19 Dose: 12 unit Documented by: Insulin Human Lispro (Insulin Lispro 100 Unit/Ml 3 Ml Vial) 0 unit SUBCUT QIDACHS [facility]; Protocol Last Admin: 08/13/21 20:38 Dose: 10 unit Documented by: Lamotrigine (Lamotrigine 100 Mg Tablet) 200 mg PO BEDTIME [facility] Last Admin: 08/13/21 20:40 Dose: 200 mg Documented by: Lorazepam (Lorazepam 0.5 Mg Tablet) 0.5 mg PO BID PRN PRN Reason: anxiety Losartan Potassium (Losartan Potassium 25 Mg Tablet) 25 mg PO DAILY [facility]; Protocol Last Admin: 08/13/21 08:24 Dose: 25 mg Documented by: Melatonin (Melatonin 3 Mg Tablet) 6 mg PO BEDTIME PRN PRN Reason: Insomnia Methylprednisolone Sodium Succinate (Methylprednisolone Sod Succ 125 Mg/2 Ml Vial) 60 mg IVPUSH Q12H [facility] Last Admin: 08/13/21 20:37 Dose: 60 mg Documented by: Montelukast Sodium (Montelukast Sodium 10 Mg Tablet) 10 mg PO BEDTIME [facility] Last Admin: 08/13/21 20:40 Dose: 10 mg Documented by: Morphine Sulfate (Morphine Sulfate 4 Mg/Ml Cartridge) 1 mg IVPUSH Q4H PRN; Protocol PRN Reason: Pain, SOB Omeprazole (Omeprazole 40 Mg Capsule.Dr) 40 mg PO BEDTIME [facility] Last Admin: 08/13/21 20:40 Dose: 40 mg Documented by: Senna (Sennosides 8.6 Mg Tablet) 17.2 mg PO BEDTIME PRN PRN Reason: Constipation Sertraline HCl (Sertraline Hcl 100 Mg Tablet) 100 mg PO DAILY [facility] Last Admin: 08/13/21 08:24 Dose: 100 mg Documented by: Sodium Chloride (0.9 % Sodium Chloride Flush 3 Ml Syringe) 3 ml IVFLUSH QSHIFT [facility] Last Admin: 08/13/21 20:37 Dose: 3 ml Documented by: Sucralfate (Sucralfate 1 Gm Tablet) 1 gm PO DAILY [facility] Last Admin: 08/13/21 08:23 Dose: 1 gm Documented by: Tramadol HCl (Tramadol Hcl 50 Mg Tablet) 50 mg PO Q6H [facility] Last Admin: 08/13/21 18:35 Dose: 50 mg Documented by: Zolpidem Tartrate (Zolpidem Tartrate 5 Mg Tablet) 10 mg PO BEDTIME PRN PRN Reason: Insomnia Home Medications Medication Instructions Recorded Confirmed Last Taken Type albuterol sulfate 1 amp INHALATION Q6H PRN 08/12/21 08/12/21 Unknown History aspirin 81 mg tablet,delayed 81 mg PO QPM 08/12/21 08/12/21 Unknown History release budesonide-formoterol HFA 160 2 puff PO BID 08/12/21 08/12/21 Unknown History mcg-4.5 mcg/actuation aerosol inhaler (Symbicort) bupropion HCl 150 mg 24 hr tablet, 150 mg PO QAM 08/12/21 08/12/21 Unknown History extended release dicyclomine 10 mg capsule 10 mg PO QIDACHS 08/12/21 08/12/21 Unknown History diltiazem HCl 180 mg 180 mg PO QAM 08/12/21 08/12/21 Unknown History capsule,extended release 24 hr docusate sodium 100 mg capsule 100 mg PO DAILY 08/12/21 08/12/21 Unknown History ferrous sulfate 325 mg (65 mg 1 tab PO BID 08/12/21 08/12/21 Unknown History iron) tablet (FeroSul) folic acid 1 mg tablet 1 mg PO QAM 08/12/21 08/12/21 Unknown History furosemide 20 mg tablet 20 mg PO QAM 08/12/21 08/12/21 Unknown History gabapentin 800 mg tablet 800 mg PO TID 08/12/21 08/12/21 Unknown History lamotrigine 200 mg tablet 1 tab PO BEDTIME 08/12/21 08/12/21 Unknown History lidocaine 5 % topical patch 1 patch TOPICAL DAILY 08/12/21 08/12/21 Unknown History lorazepam 0.5 mg tablet 0.5 mg PO BID PRN 08/12/21 08/12/21 Unknown History losartan 25 mg tablet 25 mg PO QAM 08/12/21 08/12/21 Unknown History metformin 500 mg tablet,extended 1,000 mg PO BIDAC 08/12/21 08/12/21 Unknown History release 24 hr methotrexate sodium 2.5 mg tablet 5 tab PO FR 08/12/21 08/12/21 Unknown History montelukast 10 mg tablet 10 mg PO QPM 08/12/21 08/12/21 Unknown History multivitamin 1 tab PO QPM 08/12/21 08/12/21 Unknown History ondansetron 8 mg disintegrating 8 mg PO BID-TID PRN 08/12/21 08/12/21 Unknown History tablet sertraline 100 mg tablet 100 mg PO QAM 08/12/21 08/12/21 Unknown History simvastatin 40 mg tablet 1 tab PO BEDTIME 08/12/21 08/12/21 Unknown History sucralfate 1 gram tablet 1 g PO DAILY 08/12/21 08/12/21 Unknown History tiotropium bromide 18 mcg capsule 1 cap INHALATION DAILY 08/12/21 08/12/21 Unknown History with inhalation device (Spiriva with HandiHaler) tramadol 50 mg tablet 50 mg PO Q6H 08/12/21 08/12/21 Unknown History zolpidem 10 mg tablet 10 mg PO BEDTIME PRN 08/12/21 08/12/21 Unknown History Physical Exam Vital Signs: Vital Signs: Last Vital Signs Temp 98.0 F 08/13/21 19:36 Pulse 89 08/13/21 19:36 Resp 19 08/13/21 19:36 BP 138/69 08/13/21 19:36 Pulse Ox 98 08/13/21 19:36 BMI result Body Mass Index 48.6 Const: General: cooperative Eyes: Pupils: Equal, round and reactive pupils present Resp: Effort & Inspection: normal respiratory effort Cardio: Rate: regular rate Rhythm: regular rhythm GI: Palpation (GI): Tenderness to palpation present (GI) Neuro: Cranial nerves: Yes Equal, round and reactive pupils present Extrem: General: Yes normal to inspection Results Labs CBC & Chem 7: 08/15/21 05:59 08/15/21 05:59 Labs: Short CBC 08/13/21 Range/Units 06:54 WBC 9.3 (4.8-10.8) X10*3/uL Hgb 9.8 L (12.0-16.0) g/dl Hct 34.0 L (37.0-47.0) % Plt Count 182 (160-400) X10*3/uL BMP 08/13/21 06:54 Sodium 139 Potassium 3.9 Chloride 105 Carbon Dioxide 27 BUN 16 Creatinine 0.99 Calcium 8.8 Microbiology Microbiology Results: Microbiology 08/12/21 01:02 Blood - Venous Blood Culture - Preliminary Prelim: GNR Gram Stain only 08/12/21 01:02 Blood - Venous Blood Culture - Preliminary No growth after 24 hours. Assessment and Plan (1) Lab test positive for detection of COVID-19 virus: Status: Acute Vaccinated patient with low oxygen demand on 2 l He has immunosuppression,Humira (2) Seropositive rheumatoid arthritis: Status: Acute (3) Bacterial pneumonia: Status: Resolved Plan Would continue oxygen Remdesivir Continue steroids Would continue Ceftriaxone and finish with 10 d total antibiotics,Ceftin
[2021-08-13] MEDS: Azithromycin 500 MG TABLET PO (22:36)
[2021-08-13] MEDS: cefTRIAXone sodium 1 GM in 0.9 % Sodium Chloride 50 ML IV (22:36)
[2021-08-14] VITALS (7 sets, daily range): BP systolic 100–142; BP diastolic 60–94; PULSE 79–90; RESP 18–20; TEMP 36.2–36.7; O2SAT 94–98
[2021-08-14] MEDS: Enoxaparin Sodium 40 MG/0.4 ML SYRINGE SUBCUT (06:34)
[2021-08-14] MEDS: methylPREDNISolone Sod Succ 125 MG/2 ML VIAL 60 MG IVPUSH ×2 (06:35→20:24)
[2021-08-14] MEDS: Aspirin Enteric Coated 81 MG TABLET.DR PO (06:35)
[2021-08-14] MEDS: traMADoL HCL 50 MG TABLET PO ×3 (06:35→18:10)
[2021-08-14] MEDS: Dicyclomine HCl 10 MG CAPSULE PO ×4 (06:35→20:24)
[2021-08-14] MEDS: Insulin Glargine,Hum.rec.anlog 100 UNIT/ML 10 ML VIAL 12 UNIT SUBCUT (07:39)
[2021-08-14] MEDS: buPROPion HCl XL 150 MG TAB.ER.24H PO (07:39)
[2021-08-14] MEDS: Insulin Lispro 100 UNIT/ML 3 ML VIAL SUBCUT ×4 (07:39→20:30)
[2021-08-14] MEDS: Ferrous Sulfate 324 MG TABLET.DR PO (07:40)
[2021-08-14] MEDS: Losartan Potassium 25 MG TABLET PO (07:40)
[2021-08-14] MEDS: Sucralfate 1 GM TABLET PO (07:40)
[2021-08-14] MEDS: dilTIAZem HCL CD 180 MG CAP.ER.24H PO (07:40)
[2021-08-14] MEDS: Docusate Sodium 100 MG CAPSULE PO (07:40)
[2021-08-14] MEDS: Folic Acid 1 MG TABLET PO (07:40)
[2021-08-14] MEDS: Furosemide 20 MG TABLET PO (07:40)
[2021-08-14] MEDS: Gabapentin 400 MG CAPSULE 800 MG PO ×3 (07:40→20:24)
[2021-08-14] MEDS: Lipase/Prot/Amylase 24/76/120K 1 CAP CAPSULE.DR 2 CAP PO ×4 (07:40→20:25)
[2021-08-14] MEDS: 0.9 % Sodium Chloride Flush 3 ML SYRINGE IVFLUSH ×3 (07:41→20:25)
[2021-08-14] MEDS: Sertraline HCL 100 MG TABLET PO (07:41)
[2021-08-14 07:49] LABS: Anion Gap 10 (12-20); Blood Urea Nitrogen 18 mg/dL (9-16); C Reactive Protein 1.28 mg/dL (< or = 0.50); Calcium 8.9 mg/dL (8.4-10.2); Carbon Dioxide 29 mmol/L (22-29); Chloride 104 mmol/L (96-108); Creatinine Clr Calc Pharmacy 98.3; Estimated Glomerular Filt Rate > 60; Glucose Random 357 mg/dL (60-115); Lactate Dehydrogenase 210 U/L (122-220); Potassium 4.2 mmol/L (3.3-5.1); Sodium 139 mmol/L (135-145)
[2021-08-14 08:00] LABS: Glucose, Whole Blood 323 mg/dL (60-115)
[2021-08-14] MEDS: Fluticasone/Vilanterol 100/25 BLST.W.DEV 1 PUFF INHALE (10:51)
[2021-08-14 11:15] LABS: Glucose, Whole Blood 420 mg/dL (60-115)
--- NOTE | 2021-08-14 11:15 | P.PNIM_ITS ---
Subjective Subjective Date of Service: 08/14/21 Interval History: cc: sob itnerval history: improved, coughing overnight Cardiovascular Cardiovascular: Reports no additional cardiovascular complaints Respiratory Respiratory: Reports no additional respiratory complaints Physical Exam Vital Signs: Vital Signs: Last Vital Signs Temp 97.6 F 08/14/21 07:25 Pulse 90 08/14/21 07:25 Resp 18 08/14/21 07:25 BP 142/94 H 08/14/21 07:25 Pulse Ox 97 08/14/21 07:25 BMI result Body Mass Index 48.6 General: AO X 3, no acute distress Resp: wheezes bilateral, no accessory muscles used CVS: S1,S2,RRR GI: soft, non tender, non distended Neuro: motor grossly intact, alert Psych: appropriate affect, appropriate insight Objective Data Active Medications Acetaminophen (Acetaminophen 325 Mg Tablet) 650 mg PO Q6H PRN PRN Reason: Pain, Mild (Pain Scale 1-3) Albuterol Sulfate (Albuterol Sulfate 90 Mcg 8 Gm Inhaler) 2 puff INHALE RQ4H PRN PRN Reason: sob Lipase/Protease/Amylase (Lipase/Prot/Amylase 24/76/120k 1 Cap Capsule.) 2 cap PO QID [facility] Last Admin: 08/14/21 07:40 Dose: 2 cap Documented by: MAURICIO Aspirin (Aspirin Enteric Coated 81 Mg Tablet.) 81 mg PO DAILY@0700 [facility] Last Admin: 08/14/21 06:35 Dose: 81 mg Documented by: HA Atorvastatin Calcium (Atorvastatin Calcium 20 Mg Tablet) 20 mg PO BEDTIME [facility] Last Admin: 08/13/21 20:40 Dose: 20 mg Documented by: HA Bupropion HCl (Bupropion Hcl Xl 150 Mg Tab.Er.24h) 150 mg PO DAILY [facility] Last Admin: 08/14/21 07:39 Dose: 150 mg Documented by: MAURICIO Dextrose (Dextrose 50 % 25 Gm/50 Ml Vial) 25 gm IVPUSH Q15M PRN; Protocol PRN Reason: per Hypoglycemia Standing Ord. Dicyclomine HCl (Dicyclomine Hcl 10 Mg Capsule) 10 mg PO QIDACHS [facility] Last Admin: 08/14/21 06:35 Dose: 10 mg Documented by: HA Diltiazem HCl (Diltiazem Hcl Cd 180 Mg Cap.Er.24h) 180 mg PO DAILY [facility]; Protocol Last Admin: 08/14/21 07:40 Dose: 180 mg Documented by: MAURICIO Docusate Sodium (Docusate Sodium 100 Mg Capsule) 100 mg PO DAILY [facility] Last Admin: 08/14/21 07:40 Dose: 100 mg Documented by: MAURICIO Enoxaparin Sodium (Enoxaparin Sodium 40 Mg/0.4 Ml Syringe) 40 mg SUBCUT DAILY@0700 [facility] Last Admin: 08/14/21 06:34 Dose: 40 mg Documented by: HA Ferrous Sulfate (Ferrous Sulfate 324 Mg Tablet.Dr) 324 mg PO DAILY [facility] Last Admin: 08/14/21 07:40 Dose: 324 mg Documented by: MAURICIO Fluticasone/Vilanterol (Fluticasone/Vilanterol 100/25 Blst.W.Dev) 1 puff INHALE DAILY [facility] Last Admin: 08/14/21 10:51 Dose: 1 puff Documented by: MAURICIO Folic Acid (Folic Acid 1 Mg Tablet) 1 mg PO DAILY [facility] Last Admin: 08/14/21 07:40 Dose: 1 mg Documented by: MAURICIO Furosemide (Furosemide 20 Mg Tablet) 20 mg PO DAILY [facility]; Protocol Last Admin: 08/14/21 07:40 Dose: 20 mg Documented by: MAURICIO Gabapentin (Gabapentin 400 Mg Capsule) 800 mg PO TID [facility] Last Admin: 08/14/21 07:40 Dose: 800 mg Documented by: MAURICIO Glucose (Glucose Gel 15 Gm Gel..Gram.) 15 gm PO Q15M PRN; Protocol PRN Reason: per Hypoglycemia Standing Ord. Remdesivir 100 mg/ Sodium (Chloride) 230 mls @ 115 mls/hr IV Q24H [facility] Stop: 08/16/21 15:59 Last Infusion: 08/13/21 17:54 Dose: 0 mls/hr Documented by: MO Ceftriaxone Sodium 1 gm/ (Sodium Chloride) 50 mls @ 100 mls/hr IV Q24H [facility] Last Infusion: 08/13/21 23:15 Dose: 0 mls/hr Documented by: HA Insulin Glargine (Insulin Glargine,Hum.Rec.Anlog 100 Unit/Ml 10 Ml Vial) 12 unit SUBCUT DAILY [facility] Last Admin: 08/14/21 07:39 Dose: 12 unit Documented by: MAURICIO Insulin Human Lispro (Insulin Lispro 100 Unit/Ml 3 Ml Vial) 0 unit SUBCUT QIDACHS [facility]; Protocol Last Admin: 08/14/21 07:39 Dose: 8 unit Documented by: MAURICIO Insulin Human Lispro (Insulin Lispro 100 Unit/Ml 3 Ml Vial) 10 unit SUBCUT ONCE ONE Stop: 08/14/21 11:14 Insulin Human Lispro (Insulin Lispro 100 Unit/Ml 3 Ml Vial) 10 unit SUBCUT QIDACHS [facility] Lamotrigine (Lamotrigine 100 Mg Tablet) 200 mg PO BEDTIME [facility] Last Admin: 08/13/21 20:40 Dose: 200 mg Documented by: HA Lorazepam (Lorazepam 0.5 Mg Tablet) 0.5 mg PO BID PRN PRN Reason: anxiety Losartan Potassium (Losartan Potassium 25 Mg Tablet) 25 mg PO DAILY [facility]; Protocol Last Admin: 08/14/21 07:40 Dose: 25 mg Documented by: MAURICIO Melatonin (Melatonin 3 Mg Tablet) 6 mg PO BEDTIME PRN PRN Reason: Insomnia Methylprednisolone Sodium Succinate (Methylprednisolone Sod Succ 125 Mg/2 Ml Vial) 60 mg IVPUSH Q12H [facility] Last Admin: 08/14/21 06:35 Dose: 60 mg Documented by: HA Montelukast Sodium (Montelukast Sodium 10 Mg Tablet) 10 mg PO BEDTIME [facility] Last Admin: 08/13/21 20:40 Dose: 10 mg Documented by: HA Morphine Sulfate (Morphine Sulfate 4 Mg/Ml Cartridge) 1 mg IVPUSH Q4H PRN; Protocol PRN Reason: Pain, SOB Omeprazole (Omeprazole 40 Mg Capsule.Dr) 40 mg PO BEDTIME [facility] Last Admin: 08/13/21 20:40 Dose: 40 mg Documented by: HA Senna (Sennosides 8.6 Mg Tablet) 17.2 mg PO BEDTIME PRN PRN Reason: Constipation Sertraline HCl (Sertraline Hcl 100 Mg Tablet) 100 mg PO DAILY [facility] Last Admin: 08/14/21 07:41 Dose: 100 mg Documented by: MAURICIO Sodium Chloride (0.9 % Sodium Chloride Flush 3 Ml Syringe) 3 ml IVFLUSH QSHIFT [facility] Last Admin: 08/14/21 07:41 Dose: 3 ml Documented by: MAURICIO Sucralfate (Sucralfate 1 Gm Tablet) 1 gm PO DAILY [facility] Last Admin: 08/14/21 07:40 Dose: 1 gm Documented by: MAURICIO Tramadol HCl (Tramadol Hcl 50 Mg Tablet) 50 mg PO Q6H [facility] Last Admin: 08/14/21 06:35 Dose: 50 mg Documented by: HA Zolpidem Tartrate (Zolpidem Tartrate 5 Mg Tablet) 10 mg PO BEDTIME PRN PRN Reason: Insomnia Labs CBC & Chem 7: 08/13/21 06:54 08/14/21 06:33 Labs: Laboratory Results - last 24 hr 08/13/21 08/13/21 08/13/21 11:17 14:33 16:18 Anion Gap Estim Creat Clear Calc Estimated GFR POC Glucose 228 H 303 H 305 H Random Glucose Calcium Lactate Dehydrogenase C-Reactive Protein 08/13/21 08/14/21 08/14/21 20:05 06:33 06:33 Anion Gap Cancelled 10 L Estim Creat Clear Calc Cancelled 98.3 Estimated GFR Cancelled > 60 POC Glucose 338 H Random Glucose Cancelled 357 H* Calcium Cancelled 8.9 Lactate Dehydrogenase 210 C-Reactive Protein 1.28 H 08/14/21 07:26 Anion Gap Estim Creat Clear Calc Estimated GFR POC Glucose 323 H Random Glucose Calcium Lactate Dehydrogenase C-Reactive Protein Microbiology Microbiology Results: Microbiology 08/12/21 01:02 Blood Culture - Preliminary Blood - Venous Prelim: GNR Gram Stain only 08/12/21 01:02 Blood Culture - Preliminary Blood - Venous No growth after 48 hours. Assessment and Plan (1) COVID-19: Status: Acute Assessment and Plan: 57F presented with sob, found to have covid acute hypoxic respiratory failure due to covid pneumonia complicated by acute decompensation of mild intermittent asthma full vaccinated but immunocomprimised on humira and mtx for RA demdesivir day 3/5 solumedrol breo, bronchodilators wean o2 as tolerated, likely to need home o2 eval on discharge GNR bacteremia ?pulm source urine negative, denies abd pain continue rocephin, follow up speciation dc azithro DM with hyperglycemia basal bolus insulin monitor poc htn cardizem, losartan morbid obesity weight loss Quality Stroke Does the patient have a stroke diagnosis?: No VTE Prior VTE?: No VTE Risk Level:: Medical - moderate - high VTE Device Contraindication: Treatment Not Indicated VTE Drug Contraindication: N/A - Med Ordered
[2021-08-14] MEDS: Insulin Lispro 100 UNIT/ML 3 ML VIAL 10 UNIT SUBCUT ×3 (11:31→20:29)
[2021-08-14] MEDS: Remdesivir 100 MG in 0.9 % Sodium Chloride 230 ML 115 MG IV (14:01)
[2021-08-14 16:23] LABS: Glucose, Whole Blood 253 mg/dL (60-115)
[2021-08-14 20:10] LABS: Glucose, Whole Blood 399 mg/dL (60-115)
[2021-08-14] MEDS: Atorvastatin Calcium 20 MG TABLET PO (20:24)
[2021-08-14] MEDS: Omeprazole 40 MG CAPSULE.DR PO (20:25)
[2021-08-14] MEDS: Montelukast Sodium 10 MG TABLET PO (20:25)
[2021-08-14] MEDS: cefTRIAXone sodium 1 GM in 0.9 % Sodium Chloride 50 ML IV (20:25)
[2021-08-14] MEDS: lamoTRIgine 100 MG TABLET 200 MG PO (20:25)
[2021-08-14] MEDS: LORazepam 0.5 MG TABLET PO (20:45)
[2021-08-14] MEDS: Zolpidem Tartrate 5 MG TABLET 10 MG PO (20:45)
[2021-08-15 03:03] VITALS: BP 148/73; PULSE 80; RESP 20; TEMP 36.7; O2SAT 94
[2021-08-15] MEDS: Enoxaparin Sodium 40 MG/0.4 ML SYRINGE SUBCUT (06:22)
[2021-08-15] MEDS: Aspirin Enteric Coated 81 MG TABLET.DR PO (06:22)
[2021-08-15] MEDS: traMADoL HCL 50 MG TABLET PO ×3 (06:22→19:38)
[2021-08-15 06:43] LABS: Hematocrit 32.9 % (37.0-47.0); Hemoglobin 9.6 g/dl (12.0-16.0); Mean Corpuscular HGB Conc 29.2 g/dl (31.0-35.0); Mean Corpuscular Hemoglobin 22.2 pg (27.0-33.0); Mean Corpuscular Volume 76.2 fL (80.0-98.0); Mean Platelet Volume 10.4 fL (9.4-12.3); Platelet Count 243 X10*3/uL (160-400); Red Blood Count 4.32 X10*6/uL (4.20-5.50); Red Cell Distribution Width 21.6 % (11.0-16.0); White Blood Count 12.4 X10*3/uL (4.8-10.8)
[2021-08-15 07:36] LABS: Glucose, Whole Blood 314 mg/dL (60-115)
[2021-08-15 07:36] LABS: Anion Gap 10 (12-20); Blood Urea Nitrogen 20 mg/dL (9-16); Calcium 8.9 mg/dL (8.4-10.2); Carbon Dioxide 30 mmol/L (22-29); Chloride 102 mmol/L (96-108); Creatinine Clr Calc Pharmacy 94.9; Estimated Glomerular Filt Rate > 60; Glucose Fasting 396 mg/dL (60-99); Potassium 3.8 mmol/L (3.3-5.1); Sodium 138 mmol/L (135-145)
[2021-08-15 07:55] VITALS: BP 117/63; PULSE 92; RESP 18; TEMP 36.3; O2SAT 92
[2021-08-15] MEDS: Insulin Lispro 100 UNIT/ML 3 ML VIAL SUBCUT ×4 (08:12→21:19)
[2021-08-15] MEDS: methylPREDNISolone Sod Succ 125 MG/2 ML VIAL 60 MG IVPUSH (08:12)
[2021-08-15] MEDS: Lipase/Prot/Amylase 24/76/120K 1 CAP CAPSULE.DR 2 CAP PO ×4 (08:13→21:20)
[2021-08-15] MEDS: Furosemide 20 MG TABLET PO (08:13)
[2021-08-15] MEDS: Dicyclomine HCl 10 MG CAPSULE PO ×4 (08:13→21:21)
[2021-08-15] MEDS: Insulin Lispro 100 UNIT/ML 3 ML VIAL 10 UNIT SUBCUT ×4 (08:13→21:20)
[2021-08-15] MEDS: Insulin Glargine,Hum.rec.anlog 100 UNIT/ML 10 ML VIAL 12 UNIT SUBCUT (08:13)
[2021-08-15] MEDS: Sertraline HCL 100 MG TABLET PO (08:14)
[2021-08-15] MEDS: Folic Acid 1 MG TABLET PO (08:14)
[2021-08-15] MEDS: Losartan Potassium 25 MG TABLET PO (08:14)
[2021-08-15] MEDS: dilTIAZem HCL CD 180 MG CAP.ER.24H PO (08:14)
[2021-08-15] MEDS: Gabapentin 400 MG CAPSULE 800 MG PO ×3 (08:14→21:21)
[2021-08-15] MEDS: 0.9 % Sodium Chloride Flush 3 ML SYRINGE IVFLUSH ×2 (08:14→15:08)
[2021-08-15] MEDS: Sucralfate 1 GM TABLET PO (08:14)
[2021-08-15] MEDS: Ferrous Sulfate 324 MG TABLET.DR PO (08:14)
[2021-08-15] MEDS: buPROPion HCl XL 150 MG TAB.ER.24H PO (08:14)
--- NOTE | 2021-08-15 10:12 | HO.PM.IMPN ---
Subjective Subjective Date of Service: 08/15/21 Interval History: cc: sob itnerval history: improved Cardiovascular Cardiovascular: Reports no additional cardiovascular complaints Respiratory Respiratory: Reports no additional respiratory complaints Physical Exam Vital Signs: Vital Signs: Last Vital Signs Temp 97.4 F 08/15/21 07:55 Pulse 92 08/15/21 07:55 Resp 18 08/15/21 07:55 BP 117/63 08/15/21 07:55 Pulse Ox 92 08/15/21 07:55 BMI result Body Mass Index 48.6 General: AO X 3, no acute distress Resp: CTA bilateral, no accessory muscles used CVS: S1,S2,RRR GI: soft, non tender, non distended Neuro: motor grossly intact, alert Psych: appropriate affect, appropriate insight Objective Data Active Medications Acetaminophen (Acetaminophen 325 Mg Tablet) 650 mg PO Q6H PRN PRN Reason: Pain, Mild (Pain Scale 1-3) Albuterol Sulfate (Albuterol Sulfate 90 Mcg 8 Gm Inhaler) 2 puff INHALE RQ4H PRN PRN Reason: sob Lipase/Protease/Amylase (Lipase/Prot/Amylase 24/76/120k 1 Cap Capsule.) 2 cap PO QID [facility] Last Admin: 08/15/21 08:13 Dose: 2 cap Documented by: BRAEDEN Aspirin (Aspirin Enteric Coated 81 Mg Tablet.) 81 mg PO DAILY@0700 [facility] Last Admin: 08/15/21 06:22 Dose: 81 mg Documented by: MARIAA Atorvastatin Calcium (Atorvastatin Calcium 20 Mg Tablet) 20 mg PO BEDTIME [facility] Last Admin: 08/14/21 20:24 Dose: 20 mg Documented by: HA Bupropion HCl (Bupropion Hcl Xl 150 Mg Tab.Er.24h) 150 mg PO DAILY [facility] Last Admin: 08/15/21 08:14 Dose: 150 mg Documented by: BRAEDEN Dextrose (Dextrose 50 % 25 Gm/50 Ml Vial) 25 gm IVPUSH Q15M PRN; Protocol PRN Reason: per Hypoglycemia Standing Ord. Dicyclomine HCl (Dicyclomine Hcl 10 Mg Capsule) 10 mg PO QIDACHS [facility] Last Admin: 08/15/21 08:13 Dose: 10 mg Documented by: BRAEDEN Diltiazem HCl (Diltiazem Hcl Cd 180 Mg Cap.Er.24h) 180 mg PO DAILY [facility]; Protocol Last Admin: 08/15/21 08:14 Dose: 180 mg Documented by: BRAEDEN Docusate Sodium (Docusate Sodium 100 Mg Capsule) 100 mg PO DAILY [facility] Last Admin: 08/15/21 08:24 Dose: Not Given Documented by: BRAEDEN Non-Admin Reason: Patient Refused Enoxaparin Sodium (Enoxaparin Sodium 40 Mg/0.4 Ml Syringe) 40 mg SUBCUT DAILY@0700 [facility] Last Admin: 08/15/21 06:22 Dose: 40 mg Documented by: MARIAA Ferrous Sulfate (Ferrous Sulfate 324 Mg Tablet.Dr) 324 mg PO DAILY [facility] Last Admin: 08/15/21 08:14 Dose: 324 mg Documented by: BRAEDEN Fluticasone/Vilanterol (Fluticasone/Vilanterol 100/25 Blst.W.Dev) 1 puff INHALE DAILY [facility] Last Admin: 08/14/21 10:51 Dose: 1 puff Documented by: MAURICIO Folic Acid (Folic Acid 1 Mg Tablet) 1 mg PO DAILY [facility] Last Admin: 08/15/21 08:14 Dose: 1 mg Documented by: BRAEDEN Furosemide (Furosemide 20 Mg Tablet) 20 mg PO DAILY [facility]; Protocol Last Admin: 08/15/21 08:13 Dose: 20 mg Documented by: BRAEDEN Gabapentin (Gabapentin 400 Mg Capsule) 800 mg PO TID [facility] Last Admin: 08/15/21 08:14 Dose: 800 mg Documented by: BRAEDEN Glucose (Glucose Gel 15 Gm Gel..Gram.) 15 gm PO Q15M PRN; Protocol PRN Reason: per Hypoglycemia Standing Ord. Remdesivir 100 mg/ Sodium (Chloride) 230 mls @ 115 mls/hr IV Q24H [facility] Stop: 08/16/21 15:59 Last Infusion: 08/14/21 16:17 Dose: 0 mls/hr Documented by: MAURICIO Ceftriaxone Sodium 1 gm/ (Sodium Chloride) 50 mls @ 100 mls/hr IV Q24H [facility] Last Infusion: 08/14/21 21:15 Dose: 0 mls/hr Documented by: HA Insulin Glargine (Insulin Glargine,Hum.Rec.Anlog 100 Unit/Ml 10 Ml Vial) 12 unit SUBCUT DAILY [facility] Last Admin: 08/15/21 08:13 Dose: 12 unit Documented by: BRAEDEN Insulin Human Lispro (Insulin Lispro 100 Unit/Ml 3 Ml Vial) 0 unit SUBCUT QIDACHS [facility]; Protocol Last Admin: 08/15/21 08:12 Dose: 8 unit Documented by: BRAEDEN Insulin Human Lispro (Insulin Lispro 100 Unit/Ml 3 Ml Vial) 10 unit SUBCUT QIDACHS [facility] Last Admin: 08/15/21 08:13 Dose: 10 unit Documented by: BRAEDEN Lamotrigine (Lamotrigine 100 Mg Tablet) 200 mg PO BEDTIME [facility] Last Admin: 08/14/21 20:25 Dose: 200 mg Documented by: HA Lorazepam (Lorazepam 0.5 Mg Tablet) 0.5 mg PO BID PRN PRN Reason: anxiety Last Admin: 08/14/21 20:45 Dose: 0.5 mg Documented by: HA Losartan Potassium (Losartan Potassium 25 Mg Tablet) 25 mg PO DAILY [facility]; Protocol Last Admin: 08/15/21 08:14 Dose: 25 mg Documented by: BRAEDEN Melatonin (Melatonin 3 Mg Tablet) 6 mg PO BEDTIME PRN PRN Reason: Insomnia Methylprednisolone Sodium Succinate (Methylprednisolone Sod Succ 125 Mg/2 Ml Vial) 60 mg IVPUSH Q12H [facility] Last Admin: 08/15/21 08:12 Dose: 60 mg Documented by: BRAEDEN Montelukast Sodium (Montelukast Sodium 10 Mg Tablet) 10 mg PO BEDTIME [facility] Last Admin: 08/14/21 20:25 Dose: 10 mg Documented by: HA Morphine Sulfate (Morphine Sulfate 4 Mg/Ml Cartridge) 1 mg IVPUSH Q4H PRN; Protocol PRN Reason: Pain, SOB Omeprazole (Omeprazole 40 Mg Capsule.Dr) 40 mg PO BEDTIME [facility] Last Admin: 08/14/21 20:25 Dose: 40 mg Documented by: HA Senna (Sennosides 8.6 Mg Tablet) 17.2 mg PO BEDTIME PRN PRN Reason: Constipation Sertraline HCl (Sertraline Hcl 100 Mg Tablet) 100 mg PO DAILY [facility] Last Admin: 08/15/21 08:14 Dose: 100 mg Documented by: BRAEDEN Sodium Chloride (0.9 % Sodium Chloride Flush 3 Ml Syringe) 3 ml IVFLUSH QSHIFT [facility] Last Admin: 08/15/21 08:14 Dose: 3 ml Documented by: BRAEDEN Sucralfate (Sucralfate 1 Gm Tablet) 1 gm PO DAILY [facility] Last Admin: 08/15/21 08:14 Dose: 1 gm Documented by: BRAEDEN Tramadol HCl (Tramadol Hcl 50 Mg Tablet) 50 mg PO Q6H [facility] Last Admin: 08/15/21 06:22 Dose: 50 mg Documented by: MARIAA Zolpidem Tartrate (Zolpidem Tartrate 5 Mg Tablet) 10 mg PO BEDTIME PRN PRN Reason: Insomnia Last Admin: 08/14/21 20:45 Dose: 10 mg Documented by: HA Labs CBC & Chem 7: 08/15/21 05:59 08/15/21 05:59 Labs: Laboratory Results - last 24 hr 08/14/21 08/14/21 08/14/21 11:06 16:11 20:02 MCV MCH MCHC RDW Plt Count MPV Absolute Nucleated RBC Nucleated RBC % (auto) Anion Gap Estim Creat Clear Calc Estimated GFR POC Glucose 420 H* 253 H 399 H* Fasting Glucose Calcium 08/15/21 08/15/21 08/15/21 05:59 05:59 07:26 MCV 76.2 L MCH 22.2 L MCHC 29.2 L RDW 21.6 H Plt Count 243 D MPV 10.4 Absolute Nucleated RBC 0.000 Nucleated RBC % (auto) 0.0 Anion Gap 10 L Estim Creat Clear Calc 94.9 Estimated GFR > 60 POC Glucose 314 H Fasting Glucose 396 H* Calcium 8.9 Microbiology Microbiology Results: Microbiology 08/12/21 01:02 Blood Culture - Preliminary Blood - Venous Prelim: GNR Gram Stain only Assessment and Plan (1) COVID-19: Status: Acute Assessment and Plan: 57F presented with sob, found to have covid acute hypoxic respiratory failure due to covid pneumonia complicated by acute decompensation of mild intermittent asthma fully vaccinated but immunocomprimised on humira and mtx for RA remdesivir day 4/5 solumedrol changed to po prednisone breo, bronchodilators wean o2 as tolerated, likely to need home o2 eval on discharge GNR bacteremia ?source urine negative, denies abd pain - ct abd with no obvious source continue rocephin, follow up speciation but so far no growth on plate can use ceftin on discharge incidental renal mass on CT renal US consistent with cyst DM with hyperglycemia basal bolus insulin monitor poc htn cardizem, losartan morbid obesity weight loss Quality Stroke Does the patient have a stroke diagnosis?: No VTE Prior VTE?: No VTE Risk Level:: Medical - moderate - high VTE Device Contraindication: Treatment Not Indicated VTE Drug Contraindication: N/A - Med Ordered
[2021-08-15 11:15] VITALS: BP 147/72; PULSE 90; RESP 18; TEMP 36.9; O2SAT 94
[2021-08-15 11:47] LABS: Glucose, Whole Blood 276 mg/dL (60-115)
[2021-08-15] MEDS: Remdesivir 100 MG in 0.9 % Sodium Chloride 230 ML 115 MG IV (15:08)
[2021-08-15 15:19] VITALS: BP 145/63; PULSE 78; RESP 20; TEMP 36.7; O2SAT 95
[2021-08-15 16:16] LABS: Glucose, Whole Blood 399 mg/dL (60-115)
[2021-08-15 19:13] VITALS: BP 137/68; PULSE 72; RESP 20; TEMP 36.7; O2SAT 98
[2021-08-15 19:50] LABS: Glucose, Whole Blood 371 mg/dL (60-115)
[2021-08-15] MEDS: Zolpidem Tartrate 5 MG TABLET 10 MG PO (21:20)
[2021-08-15] MEDS: lamoTRIgine 100 MG TABLET 200 MG PO (21:21)
[2021-08-15] MEDS: Atorvastatin Calcium 20 MG TABLET PO (21:21)
[2021-08-15] MEDS: LORazepam 0.5 MG TABLET PO (21:21)
[2021-08-15] MEDS: Montelukast Sodium 10 MG TABLET PO (21:21)
[2021-08-15] MEDS: Omeprazole 40 MG CAPSULE.DR PO (21:21)
[2021-08-15] MEDS: cefTRIAXone sodium 1 GM in 0.9 % Sodium Chloride 50 ML IV (21:22)
[2021-08-15 23:17] VITALS: BP 127/68; PULSE 66; RESP 21; TEMP 36.3; O2SAT 93
[2021-08-16] MEDS: 0.9 % Sodium Chloride Flush 3 ML SYRINGE IVFLUSH ×2 (01:06→08:05)
[2021-08-16] MEDS: traMADoL HCL 50 MG TABLET PO ×3 (01:06→12:19)
[2021-08-16 04:00] VITALS: BP 109/63; PULSE 78; RESP 18; TEMP 36.7; O2SAT 97
[2021-08-16] MEDS: Aspirin Enteric Coated 81 MG TABLET.DR PO (06:34)
[2021-08-16] MEDS: Enoxaparin Sodium 40 MG/0.4 ML SYRINGE SUBCUT (06:34)
[2021-08-16 08:00] VITALS: BP 101/69; PULSE 100; RESP 16; TEMP 36.6; O2SAT 96
[2021-08-16] MEDS: Lipase/Prot/Amylase 24/76/120K 1 CAP CAPSULE.DR 2 CAP PO ×2 (08:02→12:19)
[2021-08-16] MEDS: Dicyclomine HCl 10 MG CAPSULE PO ×2 (08:02→12:19)
[2021-08-16] MEDS: predniSONE 20 MG TABLET 40 MG PO (08:02)
[2021-08-16] MEDS: Docusate Sodium 100 MG CAPSULE PO (08:02)
[2021-08-16] MEDS: buPROPion HCl XL 150 MG TAB.ER.24H PO (08:02)
[2021-08-16] MEDS: Sucralfate 1 GM TABLET PO (08:02)
[2021-08-16] MEDS: Losartan Potassium 25 MG TABLET PO (08:03)
[2021-08-16] MEDS: Gabapentin 400 MG CAPSULE 800 MG PO (08:03)
[2021-08-16] MEDS: Sertraline HCL 100 MG TABLET PO (08:03)
[2021-08-16] MEDS: Folic Acid 1 MG TABLET PO (08:03)
[2021-08-16] MEDS: dilTIAZem HCL CD 180 MG CAP.ER.24H PO (08:03)
[2021-08-16] MEDS: Furosemide 20 MG TABLET PO (08:03)
[2021-08-16] MEDS: Ferrous Sulfate 324 MG TABLET.DR PO (08:03)
[2021-08-16 08:40] LABS: Glucose, Whole Blood 194 mg/dL (60-115)
[2021-08-16] MEDS: Insulin Lispro 100 UNIT/ML 3 ML VIAL SUBCUT (09:58)
[2021-08-16] MEDS: Insulin Lispro 100 UNIT/ML 3 ML VIAL 10 UNIT SUBCUT ×2 (09:58→12:19)
[2021-08-16] MEDS: Insulin Glargine,Hum.rec.anlog 100 UNIT/ML 10 ML VIAL 12 UNIT SUBCUT (09:59)
[2021-08-16 11:02] LABS: Glucose, Whole Blood 413 mg/dL (60-115)
[2021-08-16 11:22] VITALS: BP 131/96; PULSE 85; RESP 20; TEMP 36.2; O2SAT 97
--- NOTE | 2021-08-16 11:24 | PM.DS ---
DS: Providers Provider Date of Service: 08/16/21 Date of admission: 08/12/21 04:23 Primary care physician: Unknown Physician Consults: 08/12/21 04:23 Consult to Infectious Diseases Routine Consulting Provider: Lisa Tejeda Reason for consultation: COVID infection DS: Diagnosis Discharge Diagnosis (1) COVID-19: Status: Acute DS: Summary Hospital Course Hospital Course: Patient was admitted for acute hypoxic respiratory failure secondary to COVID pneumonia complicated by acute decompensation of mild intermittent asthma. Patient was treated with IV steroids, bronchodilators, remdesivir. Her symptoms improved and she was able to be weaned off oxygen. On discharge patient will continue prednisone taper 40 mg daily for 5 days then 20 mg daily for 5 days. 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 patient had CT abdomen to look for infectious source which was negative but did show an incidental finding of a renal mass, this was evaluated with ultrasound which was hypoechoic and avascular consistent with cyst. she was evaluated for home oxygen prior to discharge, but did not require. Time Spent with Patient Time attestation: Total time spent providing and/or coordinating discharge services: Discharge coordination time: Greater than 30 minutes Quality: Stroke Does the patient have a stroke diagnosis?: No Physical Exam Vital Signs: Vital Signs: Last Vital Signs Temp 97.9 F 08/16/21 08:00 Pulse 100 08/16/21 08:00 Resp 16 08/16/21 08:00 BP 101/69 08/16/21 08:00 Pulse Ox 96 08/16/21 08:00 BMI result Body Mass Index 48.6 General: AO X 3, no acute distress Resp: CTA bilateral, no accessory muscles used CVS: S1,S2,RRR GI: soft, non tender, non distended Neuro: motor grossly intact, alert Psych: appropriate affect, appropriate insight DS: Data Data Completed and Pending Labs on day of discharge: Laboratory Results - last 24 hr 08/15/21 08/15/21 08/15/21 11:16 16:04 19:44 POC Glucose 276 H 399 H* 371 H* 08/16/21 08/16/21 08:36 10:49 POC Glucose 194 H 413 H* Preliminary micro results at discharge 08/12/21 01:02 Blood Culture - Preliminary Blood - Venous No growth after 48 hours. Discharge Plan Discharge Patient Disposition: Home, Self-Care Discharge Diagnosis: covid Referrals: Physician,Unknown J [Primary Care Provider] - 1 Week Discharge Medications: New prednisone 20 mg Tablet 40 mg PO DAILY Qty: 15 RF: 0 levofloxacin 500 mg tablet 500 mg PO DAILY Qty: 10 RF: 0 metronidazole 500 mg tablet 500 mg PO Q12H Qty: 20 RF: 0 Continued diltiazem HCl 180 mg capsule,extended release 24hr 180 mg PO QAM RF: 0 sucralfate 1 gram tablet 1 g PO DAILY RF: 0 sertraline 100 mg tablet 100 mg PO QAM RF: 0 aspirin 81 mg tablet,delayed release (DR/EC) 81 mg PO QPM RF: 0 tramadol 50 mg tablet 50 mg PO Q6H RF: 0 ondansetron 8 mg tablet,disintegrating 8 mg PO BID-TID PRN (Reason: nausea/vomiting) RF: 0 lorazepam 0.5 mg tablet 0.5 mg PO BID PRN (Reason: anxiety) RF: 0 gabapentin 800 mg tablet 800 mg PO TID RF: 0 ferrous sulfate [FeroSul] 325 mg (65 mg iron) tablet 1 tab PO BID RF: 0 lidocaine 5 % adhesive patch,medicated 1 patch topical DAILY RF: 0 losartan 25 mg tablet 25 mg PO QAM RF: 0 docusate sodium 100 mg capsule 100 mg PO DAILY RF: 0 folic acid 1 mg tablet 1 mg PO QAM RF: 0 montelukast 10 mg tablet 10 mg PO QPM RF: 0 furosemide 20 mg tablet 20 mg PO QAM RF: 0 zolpidem 10 mg tablet 10 mg PO BEDTIME PRN (Reason: Insomnia) RF: 0 metformin 500 mg tablet extended release 24 hr 1,000 mg PO BIDAC RF: 0 dicyclomine 10 mg capsule 10 mg PO QIDACHS RF: 0 bupropion HCl 150 mg tablet extended release 24 hr 150 mg PO QAM RF: 0 budesonide-formoterol [Symbicort] 160-4.5 mcg/actuation HFA aerosol inhaler 2 puff PO BID RF: 0 Creon 24,000-76,000 -120,000 unit capsule,delayed release(DR/EC) 2 cap PO QID RF: 0 multivitamin Tablet 1 tab PO QPM RF: 0 lamotrigine 200 mg tablet 1 tab PO BEDTIME RF: 0 albuterol sulfate 2.5 mg /3 mL (0.083 %) solution for nebulization 1 amp inhalation Q6H PRN (Reason: wheezing) RF: 0 simvastatin 40 mg tablet 1 tab PO BEDTIME RF: 0 methotrexate sodium 2.5 mg tablet 5 tab PO FR RF: 0 Spiriva with HandiHaler 18 mcg capsule, w/inhalation device 1 cap inhalation DAILY RF: 0 Dexilant 60 mg capsule,biphase delayed releas 1 cap PO BEDTIME RF: 0 Discontinued hydrochlorothiazide 12.5 mg tablet 1 tab PO Q48H RF: 0 Discharge Orders: Discharge Order (Routine); Ordered 08/16/21 Ordered By: Jose Tony Diet: advance to usual diet Activity on Discharge: As tolerated Stand Alone Forms: Patient Portal Discharge page Care Plan Goals: recovery Health Concerns: covid Plan of Treatment: steroid taper, 10 days antibiotics Assessment: see above
[2021-08-16 11:34] VITALS: PULSE 90; PULSE 92; O2SAT 114; O2SAT 96
--- NOTE | 2021-08-16 11:47 | MHC.CM.PN ---
Patient has been medically cleared for dc to home today, no services.
[2021-08-16 12:15] LABS: Glucose, Whole Blood 331 mg/dL (60-115)
== END 2021-08-16 17:14 | disposition home or self-care (01) | DRG 137 ==
LOC: HO.ED 08-12 02:46 → HO.EDOVER 08-12 04:39 → HO.IMC 08-12 14:25
PROVIDERS: Student in an Organized Health Care Education/Training Program; Admitting Provider Hospitalist; Emergency Provider Student in an Organized Health Care Education/Training Program; PCP Internal Medicine; Visit Provider Internal Medicine
DX: U07.1 COVID-19 (principal); J96.01 Acute respiratory failure with hypoxia; J12.82 Pneumonia due to coronavirus disease 2019; R78.81 Bacteremia; J45.21 Mild intermittent asthma with (acute) exacerbation; E11.65 Type 2 diabetes mellitus with hyperglycemia; I10 Essential (primary) hypertension; E66.01 Morbid (severe) obesity due to excess calories; Z68.42 Body mass index [BMI] 45.0-49.9, adult; M06.9 Rheumatoid arthritis, unspecified; N28.1 Cyst of kidney, acquired; Z79.82 Long term (current) use of aspirin; Z79.84 Long term (current) use of oral hypoglycemic drugs; Z79.891 Long term (current) use of opiate analgesic; Z79.899 Other long term (current) drug therapy
CPT/HCPCS: 36415; 71045; 74176; 76775; 80048; 80053; 82803; 82947; 83036; 83605; 83615; 83880; 84484; 85025; 85027; 85379; 86140; 87040; 87076; 87205; 87635; 93005; 94640; 96365; 96366; 96375; 99285; J0696; J1650; J2930; J3475; J3490

== ENCOUNTER 2021-10-12 08:05 | Outpatient (REF) | payer MEDICAID, SELFPAY ==
--- NOTE | ~2021-10-12 | XR_ITS ---
EXAMINATION: XR HAND, RIGHT CLINICAL INFORMATION: Pain; history of rheumatoid arthritis. COMPARISON: Radiographs dated 04/26/1718. TECHNIQUE: PA, lateral, and oblique views of the right hand. FINDINGS: Bony alignment and mineralization are normal. There is a neutral ulnar variance. There is mild osteoarthritic change of the interphalangeal joint of the thumb and of the second through fourth distal interphalangeal joints. There is mild osteoarthritic change of the first carpometacarpal joint. No fracture or dislocation is seen. There is no abnormal bony erosive change. No soft tissue swelling or foreign body is seen. XR/XR hand LT min 3V IMPRESSION: 1. There is multi-focal mild osteoarthritic change of the right fingers and of the first carpometacarpal joint. 2. No fracture or dislocation is seen. 3. There is no abnormal bony erosive change. EXAMINATION: XR HAND, LEFT CLINICAL INFORMATION: Pain; history of rheumatoid arthritis. COMPARISON: Radiographs dated 05/03/2018. TECHNIQUE: PA, lateral, and oblique views of the left hand. FINDINGS: Bony alignment and mineralization are normal. There is a neutral ulnar variance. There is moderately severe osteoarthritic change of the second distal interphalangeal joint, and mild osteoarthritic change is seen of the third and fifth distal interphalangeal joints. There is mild osteoarthritic change of the first metacarpophalangeal and carpometacarpal joints. No fracture or dislocation is seen. Small periarticular erosions are questioned of the medial aspect of the head of the fifth middle phalanx and medially at the base of the second proximal phalanx. No soft tissue swelling or foreign body is seen. IMPRESSION: 1. There is multi-focal osteoarthritic change of the left fingers and of the first carpometacarpal joint. 2. No fracture or dislocation is seen. 3. Mild periarticular erosion is suspected of the head of the fifth middle phalanx and of the base of the second proximal phalanx, consistent with the provided history of rheumatoid arthritis.
[2021-10-12 09:21] LABS: MANUAL DIFF FLAG NO
[2021-10-12 10:03] LABS: Basophils Percent Auto 0.4 % (0-2); Eosinophils Absolute Auto 0.1 X10*3/uL (0.0-0.4); Eosinophils Percent Auto 1.9 % (0-4); Hematocrit 40.1 % (37.0-47.0); Hemoglobin 12.1 g/dl (12.0-16.0); Imm Gran Abs Auto 0.02 X10*3/uL (0.00-0.03); Imm Gran Pct Auto 0.3 % (0.0-0.4); Lymphocytes Absolute Auto 1.5 X10*3/uL (1.2-4.9); Lymphocytes Percent Auto 20.7 % (20-40); Mean Corpuscular HGB Conc 30.2 g/dl (31.0-35.0); Mean Corpuscular Hemoglobin 25.4 pg (27.0-33.0); Mean Corpuscular Volume 84.2 fL (80.0-98.0); Mean Platelet Volume 10.1 fL (9.4-12.3); Monocytes Absolute Auto 0.8 X10*3/uL (0.1-1.2); Monocytes Percent Auto 10.1 % (2-11); Neutrophils Percent Auto 66.6 % (45-73); Platelet Count 276 X10*3/uL (160-400); Red Blood Count 4.76 X10*6/uL (4.20-5.50); Red Cell Distribution Width 18.5 % (11.0-16.0); White Blood Count 7.5 X10*3/uL (4.8-10.8)
[2021-10-12 10:37] LABS: Alanine Aminotransferase 30 U/L (0-31); Alkaline Phosphatase 89 U/L (39-117); Anion Gap 12 (12-20); Aspartate Amino Transferase 20 U/L (5-31); Bilirubin Total 0.2 mg/dL (0.0-1.0); Blood Urea Nitrogen 14 mg/dL (9-16); C Reactive Protein 1.71 mg/dL (< or = 0.50); Calcium 9.7 mg/dL (8.4-10.2); Carbon Dioxide 33 mmol/L (22-29); Chloride 99 mmol/L (96-108); Estimated Glomerular Filt Rate > 60; Glucose Random 123 mg/dL (60-115); Potassium 4.2 mmol/L (3.3-5.1); Sodium 140 mmol/L (135-145); Total Protein 7.2 g/dL (6.5-8.0)
[2021-10-12 10:44] LABS: Erythrocyte Sedimentation Rate 26 MM/HR (0-20)
== END 2021-10-12 08:06 | disposition home or self-care (01) ==
LOC: HO.LAB 08:05
PROVIDERS: PCP Internal Medicine; Visit Provider Nurse Practitioner Family
DX: M05.9 Rheumatoid arthritis with rheumatoid factor, unspecified (principal); M79.641 Pain in right hand; M79.642 Pain in left hand; D64.9 Anemia, unspecified
CPT/HCPCS: 36415; 73130; 80053; 85025; 85652; 86140; 99212

== ENCOUNTER → 2021-10-21 13:56 | Outpatient (BNVA) | payer MEDICAID, SELFPAY | PROVIDERS: PCP Internal Medicine; Referring Provider Internal Medicine; Visit Provider Nurse Practitioner | DX: K21.9 Gastro-esophageal reflux disease without esophagitis (principal); K58.2 Mixed irritable bowel syndrome | CPT/HCPCS: 99212 ==

== ENCOUNTER 2022-01-12 09:19 | Outpatient (REF) | payer MEDICAID, SELFPAY ==
--- NOTE | ~2022-01-12 | XR_ITS ---
EXAMINATION: XR FOOT, RIGHT CLINICAL INFORMATION: Rheumatoid arthritis COMPARISON: None TECHNIQUE: AP, lateral, and oblique views of the right foot. FINDINGS: Bone alignment is normal. No acute fracture or dislocation is seen. There is arthritis at the IP joint of the second third and fourth toes with joint space narrowing and osteophyte formation. Joint spaces are otherwise normal. Bone mineralization is normal. There are small calcaneal spurs. Soft tissues are otherwise normal.. XR/XR foot RT 2V IMPRESSION: Arthritis at the IP joints of the second third and fourth toes with joint space narrowing and osteophyte formation. Small calcaneal spurs.
--- NOTE | ~2022-01-12 | XR_ITS ---
EXAMINATION: XR CERVICAL SPINE CLINICAL INFORMATION: Pain COMPARISON: Previous x-ray from 2016 TECHNIQUE: 3 views of the cervical spine were obtained. FINDINGS: Bone alignment is normal. No fracture or dislocation is is multilevel degenerative spondylosis and degenerative disc disease from C3-C4 C5-C6. Prevertebral soft tissues are normal. There is soft tissue ossification posterior to the C5 spinous process likely related to old soft tissue trauma. There is congenital or posttraumatic deformity of the right first rib. This is similar to previous exam. XR/XR cervical spine 2V IMPRESSION: Degenerative changes.
--- NOTE | ~2022-01-12 | XR_ITS ---
EXAMINATION: XR FOOT, LEFT CLINICAL INFORMATION: Rheumatoid arthritis COMPARISON: None TECHNIQUE: AP, lateral, and oblique views of the left foot. FINDINGS: Bone alignment is normal. No fracture or dislocation is seen. Joint spaces are normal. There are small calcaneal spurs. Soft tissues are otherwise normal. XR/XR foot LT 2V IMPRESSION: Small calcaneal spurs.
[2022-01-12 09:31] LABS: MANUAL DIFF FLAG NO
[2022-01-12 09:37] LABS: Basophils Percent Auto 0.3 % (0-2); Eosinophils Absolute Auto 0.2 X10*3/uL (0.0-0.4); Eosinophils Percent Auto 1.8 % (0-4); Hematocrit 38.4 % (37.0-47.0); Hemoglobin 11.9 g/dl (12.0-16.0); Imm Gran Abs Auto 0.04 X10*3/uL (0.00-0.03); Imm Gran Pct Auto 0.4 % (0.0-0.4); Lymphocytes Absolute Auto 1.7 X10*3/uL (1.2-4.9); Lymphocytes Percent Auto 17.7 % (20-40); Monocytes Absolute Auto 0.8 X10*3/uL (0.1-1.2); Monocytes Percent Auto 8.6 % (2-11); Neutrophils Absolute Auto 6.9 x10*3/uL (2.0-8.3); Neutrophils Percent Auto 71.2 % (45-73); Platelet Count 246 X10*3/uL (160-400); Red Blood Count 4.57 X10*6/uL (4.20-5.50); Red Cell Distribution Width 13.9 % (11.0-16.0); White Blood Count 9.8 X10*3/uL (4.8-10.8)
[2022-01-12 10:11] LABS: Alanine Aminotransferase 22 U/L (0-31); Albumin Level 3.9 g/dL (3.5-5.0); Alkaline Phosphatase 92 U/L (39-117); Anion Gap 12 (12-20); Aspartate Amino Transferase 15 U/L (5-31); Bilirubin Total 0.3 mg/dL (0.0-1.0); Blood Urea Nitrogen 14 mg/dL (9-16); C Reactive Protein 1.65 mg/dL (< or = 0.50); Calcium 9.2 mg/dL (8.4-10.2); Carbon Dioxide 30 mmol/L (22-29); Chloride 102 mmol/L (96-108); Estimated Glomerular Filt Rate > 60; Glucose Random 130 mg/dL (60-115); Potassium 4.1 mmol/L (3.3-5.1); Sodium 140 mmol/L (135-145); Total Protein 7.2 g/dL (6.5-8.0)
[2022-01-12 10:30] LABS: Erythrocyte Sedimentation Rate 29 MM/HR (0-20)
[2022-01-14 14:36] LABS: CRP High Sensitivity >10.0 mg/L
== END 2022-01-12 09:20 | disposition home or self-care (01) ==
LOC: HO.LAB 09:19
PROVIDERS: Visit Provider Nurse Practitioner Family
DX: M05.9 Rheumatoid arthritis with rheumatoid factor, unspecified (principal); M54.2 Cervicalgia; D64.9 Anemia, unspecified; M79.671 Pain in right foot; M79.672 Pain in left foot
CPT/HCPCS: 36415; 72040; 73620; 80053; 85025; 85652; 86140; 86141; 99212

== ENCOUNTER 2022-03-15 11:24 | Emergency (ER) | payer MEDICAID, SELFPAY ==
--- NOTE | ~2022-03-15 | XR_ITS ---
EXAMINATION: XR HUMERUS, LEFT XR FOREARM, LEFT CLINICAL INFORMATION: Fall, trauma, pain COMPARISON: Radiographs left elbow 03/29/2021 TECHNIQUE: Left humerus is imaged in 2 views. The left forearm is imaged in 2 views. There are total of 4 views FINDINGS: Left humerus shows no fracture or dislocation. No destructive process or periostitis. The acromioclavicular alignment is normal. The left forearm shows no fracture or dislocation. There is no elbow capsular effusion. There is lateral epicondylar spur and tiny medial epicondyle and tiny olecranon spur. No elbow joint narrowing or erosive change. The ulnar variance is neutral. The pronator quadratus fat pad appears normal. XR/XR forearm LT 2V IMPRESSION: Unremarkable left humerus, left forearm.
--- NOTE | ~2022-03-15 | XR_ITS ---
EXAMINATION: XR HUMERUS, LEFT XR FOREARM, LEFT CLINICAL INFORMATION: Fall, trauma, pain COMPARISON: Radiographs left elbow 03/29/2021 TECHNIQUE: Left humerus is imaged in 2 views. The left forearm is imaged in 2 views. There are total of 4 views FINDINGS: Left humerus shows no fracture or dislocation. No destructive process or periostitis. The acromioclavicular alignment is normal. The left forearm shows no fracture or dislocation. There is no elbow capsular effusion. There is lateral epicondylar spur and tiny medial epicondyle and tiny olecranon spur. No elbow joint narrowing or erosive change. The ulnar variance is neutral. The pronator quadratus fat pad appears normal. XR/XR humerus LT IMPRESSION: Unremarkable left humerus, left forearm.
--- NOTE | ~2022-03-15 | XR_ITS ---
EXAMINATION: XR TIBIA AND FIBULA, LEFT CLINICAL INFORMATION: Fall, trauma, pain COMPARISON: Radiographs left foot 01/12/2022 TECHNIQUE: Left lower leg is imaged in 3 views. FINDINGS: No fracture or dislocation. No destructive process or periostitis. There is borderline narrowing medial knee joint compartment. No erosive change. XR/XR tibia fibula LT 2V IMPRESSION: No visible fracture or dislocation.
[2022-03-15 12:11] VITALS: BP 153/90; PULSE 90; RESP 18; TEMP 36.6; O2SAT 94; BMI 49.4
--- NOTE | 2022-03-15 14:06 | ED_ITS ---
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 She has made several attempts to follow-up with primary care provider but has been unsuccessful and states that the current pain medication regimen that she is on is not adequate. He denies any associated fever, chills, shortness of breath/chest pain/palpitations Related Data Home Medications Medication Instructions Recorded Confirmed albuterol sulfate 2.5 mg/3 mL 1 amp inhalation Q6H PRN wheezing 08/12/21 10/21/21 (0.083 %) solution for nebulization aspirin 81 mg tablet,delayed 81 mg PO QPM 08/12/21 10/21/21 release budesonide-formoterol HFA 160 2 puff PO BID 08/12/21 10/21/21 mcg-4.5 mcg/actuation aerosol inhaler (Symbicort) bupropion HCl 150 mg 24 hr tablet, 150 mg PO QAM 08/12/21 10/21/21 extended release diltiazem HCl 180 mg 180 mg PO QAM 08/12/21 10/21/21 capsule,extended release 24 hr ferrous sulfate 325 mg (65 mg 1 tab PO BID 08/12/21 10/21/21 iron) tablet (FeroSul) folic acid 1 mg tablet 1 mg PO QAM 08/12/21 10/21/21 furosemide 20 mg tablet 20 mg PO QAM 08/12/21 10/21/21 lamotrigine 200 mg tablet 1 tab PO BEDTIME 08/12/21 10/21/21 lidocaine 5 % topical patch 1 patch topical DAILY 08/12/21 10/21/21 lorazepam 0.5 mg tablet 0.5 mg PO BID PRN anxiety 08/12/21 10/21/21 losartan 25 mg tablet 25 mg PO QAM 08/12/21 10/21/21 metformin 500 mg tablet,extended 1,000 mg PO BIDAC 08/12/21 10/21/21 release 24 hr montelukast 10 mg tablet 10 mg PO QPM 08/12/21 10/21/21 multivitamin 1 tab PO QPM 08/12/21 10/21/21 sertraline 100 mg tablet 100 mg PO QAM 08/12/21 10/21/21 simvastatin 40 mg tablet 1 tab PO BEDTIME 08/12/21 10/21/21 tiotropium bromide 18 mcg capsule 1 cap inhalation DAILY 08/12/21 10/21/21 with inhalation device (Spiriva with HandiHaler) zolpidem 10 mg tablet 10 mg PO BEDTIME PRN Insomnia 08/12/21 10/21/21 Previous Rx's Medication Instructions Recorded prednisone 20 mg tablet 40 mg PO DAILY #15 tabs 08/16/21 dexlansoprazole 60 mg 60 mg PO BEDTIME #30 caps 10/21/21 capsule,biphase delayed release (Dexilant) dicyclomine 10 mg capsule 10 mg PO QIDACHS #120 caps 10/21/21 sucralfate 1 gram tablet 1 g PO DAILY #30 tabs 10/21/21 adalimumab 40 mg/0.8 mL 40 mg (0.8 mL) subcut Q2W #2 ea 12/10/21 subcutaneous pen kit (Humira Pen) ondansetron 8 mg disintegrating 8 mg PO BID-TID PRN for 02/03/22 tablet nausea/vomiting #90 ea tramadol 50 mg tablet 50 mg PO Q6H #120 tabs 02/03/22 docusate sodium 100 mg capsule 100 mg PO DAILY #30 caps 02/08/22 [id number] 2 cap PO QID #240 caps 02/08/22 24,000-76,000-120,000 unit capsule,delayed rel (Creon) gabapentin 800 mg tablet 800 mg PO TID #90 tabs 03/15/22 Allergies Allergy/AdvReac Type Severity Reaction Status Date / Time metoclopramide [Reglan] AdvReac Unknown diarrhea, Verified 01/12/22 08:27 vomiting Review of Systems Review of Systems: Pertinent positives and negatives as stated in HPI 10 point review of systems is otherwise negative. [facility] Past Medical History Source: nursing notes reviewed Medical History Anemia Arthritis Asthma Bacterial pneumonia Bleeding hemorrhoid Chronic fatigue COPD (chronic obstructive pulmonary disease) Diabetes GERD (gastroesophageal reflux disease) Graves disease Hepatitis C HTN (hypertension) Hyperlipidemia IBS (irritable bowel syndrome) Lumbar radiculopathy Morbid obesity Multinodular thyroid Osteoarthritis Seropositive rheumatoid arthritis Tubular adenoma of colon Vitamin D deficiency Surgical History History of esophagogastroduodenoscopy (EGD) Hx of appendectomy Hx of cholecystectomy Hx of colonoscopy Family History Family History Mother Diabetes HTN (hypertension) CVD (cardiovascular disease) Heart problem Father Diabetes Brother Autism History of open heart surgery CVD (cardiovascular disease) Diabetes Son Diabetes Maternal Grandmother Diabetes Maternal Grandfather Diabetes Social History Social History Household Members: Spouse, Children and Other Housing: Apartment Are you a primary career center director to a significant other at home: No Do you presently have visiting nurse or other home services: No Alcohol intake: never Patient Tobacco Use Status: Never used Tobacco Advance Directives: Yes Advance Directives Information Provided: Yes Advance Directives on File: No service: No Current occupational status: unemployed and disabled Current occupation: rt handed Physical Exam ED Vital Signs: Vital Signs - 24 hr 03/15/22 12:11 Temperature 98 F Pulse Rate 90 Respiratory Rate 18 Blood Pressure 153/90 H Pulse Oximetry 94 Oxygen Delivery Method Room Air BMI result Body Mass Index 49.4 VITAL SIGNS: Reviewed. GENERAL: Well developed, well nourished, in no acute distress. HEAD: Normocephalic/atraumatic EYES: PERRLA, EOMI EARS: Ext canals without abnormality OROPHARYNX: no oral lesions noted, posterior pharynx clear LUNGS: Normal breath sounds. No adventitious sounds or accessory muscle use. SpO2<94> CARDIOVASCULAR: Regular rate and rhythm without noted murmurs, no JVD or lower extremity edema. ABDOMEN: Soft, non-tender, non-distended with bowel sounds. MUSCULOSKELETAL: No tenderness, deformities, or effusions noted on gross inspection. EXTREMITIES: No cyanosis, clubbing or edema; LUE-full range of motion at shoulder/elbow/wrist without evidence of erythema or edema; LLE-full range of motion at the hip/knee there is mild ecchymosis noted from patient's fall 2 weeks ago while camping. SKIN: Inspection of the skin reveals no rashes NEUROLOGIC: Alert and oriented x 4. Strength and sensation to light touch were grossly intact x 4. Course Course Course Narrative: 56-year-old female with history and clinical presentation consistent with quite possibly a rheumatoid arthritis presentation given the appearance of her bilateral fingers. Patient is exhibiting significant frustration regarding follow-up and the ability to get an appointment with her primary care provider a nd is exhausted from the amount of chronic pain that she has having to undergo. Patient reports that she is currently on ibuprofen, tramadol, gabapentin. 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 She is otherwise hemodynamically stable and on review of all imaging studies there are no acute fractures or dislocations. Discharge Plan Discharge Clinical Impression: Arthritis Patient Disposition: Home, Self-Care Instructions: Arthritis (ED) Additional Instructions: 1. Reanudar todos los medicamentos caseros. 2. Llame al consultorio de [place] reumat?logo. Regrese a la tj de emergencias si los s?ntomas empeoran. Prescriptions: No Action Humira Pen 40 mg/0.8 mL pen injector kit 40 mg subcut Q2W Qty: 2 3RF tramadol 50 mg tablet 50 mg PO Q6H Qty: 120 1RF ondansetron 8 mg tablet,disintegrating 8 mg PO BID-TID PRN (Reason: for nausea/vomiting) Qty: 90 1RF docusate sodium 100 mg capsule 100 mg PO DAILY Qty: 30 6RF Creon 24,000-76,000 -120,000 unit capsule,delayed release(DR/EC) 2 cap PO QID Qty: 240 2RF gabapentin 800 mg tablet 800 mg PO TID Qty: 90 2RF diltiazem HCl 180 mg capsule,extended release 24hr 180 mg PO QAM sertraline 100 mg tablet 100 mg PO QAM aspirin 81 mg tablet,delayed release (DR/EC) 81 mg PO QPM lorazepam 0.5 mg tablet 0.5 mg PO BID PRN (Reason: anxiety) ferrous sulfate [FeroSul] 325 mg (65 mg iron) tablet 1 tab PO BID lidocaine 5 % adhesive patch,medicated 1 patch topical DAILY losartan 25 mg tablet 25 mg PO QAM folic acid 1 mg tablet 1 mg PO QAM montelukast 10 mg tablet 10 mg PO QPM furosemide 20 mg tablet 20 mg PO QAM zolpidem 10 mg tablet 10 mg PO BEDTIME PRN (Reason: Insomnia) metformin 500 mg tablet extended release 24 hr 1,000 mg PO BIDAC bupropion HCl 150 mg tablet extended release 24 hr 150 mg PO QAM budesonide-formoterol [Symbicort] 160-4.5 mcg/actuation HFA aerosol inhaler 2 puff PO BID multivitamin Tablet 1 tab PO QPM lamotrigine 200 mg tablet 1 tab PO BEDTIME albuterol sulfate 2.5 mg /3 mL (0.083 %) solution for nebulization 1 amp inhalation Q6H PRN (Reason: wheezing) simvastatin 40 mg tablet 1 tab PO BEDTIME Spiriva with HandiHaler 18 mcg capsule, w/inhalation device 1 cap inhalation DAILY prednisone 20 mg Tablet 40 mg PO DAILY Qty: 15 0RF Rx Instructions: 40mg daily for 5 days, then 20mg daily for 5 days sucralfate 1 gram tablet 1 g PO DAILY Qty: 30 6RF dicyclomine 10 mg capsule 10 mg PO QIDACHS Qty: 120 6RF dexlansoprazole [Dexilant] 60 mg capsule,biphase delayed releas 60 mg PO BEDTIME Qty: 30 6RF Referrals: Dee Valenzuela MD [Primary Care Provider] - (Patient requesting re- evaluation for her arthritis and persistent pain. Possible pain management?) Bob Burger MD [Physician] - (Patient evaluated here on 03/15 for persistent left shoulder, left lower extremity as well as neck/back pain. Please consider in early re-evaluation before April.) Print Language: [place]
== END 2022-03-15 14:59 | disposition home or self-care (01) ==
PROVIDERS: Emergency Provider Student in an Organized Health Care Education/Training Program; PCP Internal Medicine
DX: M05.9 Rheumatoid arthritis with rheumatoid factor, unspecified (principal); R29.6 Repeated falls; E11.9 Type 2 diabetes mellitus without complications; I10 Essential (primary) hypertension; E78.5 Hyperlipidemia, unspecified; E66.01 Morbid (severe) obesity due to excess calories; Z68.42 Body mass index [BMI] 45.0-49.9, adult; Z79.82 Long term (current) use of aspirin; Z79.899 Other long term (current) drug therapy; Z79.84 Long term (current) use of oral hypoglycemic drugs; Z79.02 Long term (current) use of antithrombotics/antiplatelets; Z79.891 Long term (current) use of opiate analgesic
CPT/HCPCS: 73060; 73090; 73590; 99283

== ENCOUNTER → 2022-04-08 12:27 | Outpatient (BNVA) | payer MEDICAID, SELFPAY | PROVIDERS: PCP Internal Medicine; Visit Provider Nurse Practitioner Family | DX: M05.9 Rheumatoid arthritis with rheumatoid factor, unspecified (principal); M17.0 Bilateral primary osteoarthritis of knee; M54.2 Cervicalgia; D64.9 Anemia, unspecified; M79.671 Pain in right foot; M79.672 Pain in left foot; Z79.899 Other long term (current) drug therapy | CPT/HCPCS: 99212 ==

== ENCOUNTER 2022-05-28 14:53 | Emergency (ER) | payer MEDICAID, SELFPAY ==
--- NOTE | ~2022-05-28 | CT_ITS ---
EXAMINATION: CT ABDOMEN AND PELVIS WITH CONTRAST CLINICAL INFORMATION: Epigastric pain COMPARISON: CT abdomen and pelvis 08/14/2021 TECHNIQUE: Multidetector volumetric images were obtained from the superior aspect of the liver through the pubic symphysis following administration 100 mL of Omnipaque 350 intravenous contrast. Sagittal and coronal reformatted images were obtained on the technologist's workstation. Oral contrast: No This CT examination was performed using dose optimization techniques as appropriate, variously including the following: *Automated exposure control *Adjustment of mA and/or kV according to patient size (this includes techniques or standardized protocols for targeted exams where dose is matched to indication/reason for exam; i.e. extremities or head) *Use of iterative reconstruction technique DLP: 1253 mGy-cm FINDINGS: LUNG BASES: Mild dependent bibasilar atelectasis. LIVER, GALLBLADDER, AND BILIARY TREE: Diffuse hepatic hypoattenuation/steatosis. Normal hepatic size. No liver lesion. No biliary ductal dilation. Status post cholecystectomy. Surgical clips in the gallbladder fossa. PANCREAS: Unremarkable. SPLEEN: Unremarkable. ADRENAL GLANDS: Unremarkable. KIDNEYS AND URETERS: Nephrograms are symmetric. No renal calculi or hydronephrosis. A few small hypodense left renal lesions consistent with cysts, largest 2.2 cm in size in the midpole. No perinephric stranding or collection. BLADDER: Unremarkable. GASTROINTESTINAL TRACT: No dilated bowel loops. No bowel wall thickening. Smaller moderate amount of formed stool seen throughout the colon. Appendix is not discretely visualized. No inflammatory change at the cecal base. No ascites or free air. ABDOMINAL WALL: No significant hernia is appreciated. LYMPH NODES: No lymphadenopathy. VASCULAR: Normal caliber abdominal aorta. PELVIC VISCERA: Unremarkable. OSSEOUS STRUCTURES: Unchanged chronic/healed left lower lateral rib fracture deformities. Mild multilevel degenerative disc disease. No acute fracture or suspicious osseous lesion. CT/CT abdomen pelvis w IV con IMPRESSION: 1. No acute intra-abdominal process identified. 2. Hepatic steatosis. 3. Status post cholecystectomy. Fleischner guidelines were followed.
--- NOTE | ~2022-05-28 | XR_ITS ---
EXAMINATION: XR CHEST CLINICAL INFORMATION: Chest pain COMPARISON: 08/11/2021 TECHNIQUE: Frontal view of the chest was obtained. FINDINGS: Seen on the previous examination the right upper lobe patchy airspace disease has been resolved. Lungs are clear. Cardiomediastinal silhouette is normal. There is no pleural effusion. There is healed fracture deformity of left lower rib along the midaxillary line of indeterminate age. XR/XR chest 1V IMPRESSION: No active cardiopulmonary disease
--- NOTE | 2022-05-28 15:10 | ECG_ITS ---
Test Reason : CP Blood Pressure : / mmHG Vent. Rate : 095 BPM Atrial Rate : 095 BPM P-R Int : 146 ms QRS Dur : 078 ms QT Int : 354 ms P-R-T Axes : 064 020 047 degrees QTc Int : 444 ms Normal sinus rhythm Nonspecific ST abnormality Inferior leads Abnormal ECG When compared with ECG of 11-AUG-2021 22:33, ST more elevated in Inferior leads Referred By: Generic ED Physician Electronically Signed By:QUINTON BRADSHAW MD
[2022-05-28 15:11] VITALS: BP 130/72; PULSE 104; RESP 18; TEMP 36.8; O2SAT 93; BMI 38.0
[2022-05-28 15:29] LABS: Eosinophils Absolute Auto 0.1 X10*3/uL (0.0-0.4); Eosinophils Percent Auto 1.5 % (0-4); Hemoglobin 12.7 g/dl (12.0-16.0); Imm Gran Abs Auto 0.04 X10*3/uL (0.00-0.03); Imm Gran Pct Auto 0.5 % (0.0-0.4); MANUAL DIFF FLAG SCAN; PLT CLUMP 1; Red Cell Distribution Width 13.5 % (11.0-16.0); SCAN SMEAR FLAG 1
[2022-05-28 15:30] LABS: Basophils Absolute Auto 0.1 X10*3/uL (0.0-0.2); Basophils Percent Auto 0.6 % (0-2); Hematocrit 41.3 % (37.0-47.0); Lymphocytes Absolute Auto 1.2 X10*3/uL (1.2-4.9); Lymphocytes Percent Auto 14.5 % (20-40); Mean Corpuscular HGB Conc 30.8 g/dl (31.0-35.0); Mean Corpuscular Hemoglobin 25.5 pg (27.0-33.0); Mean Corpuscular Volume 82.8 fL (80.0-98.0); Mean Platelet Volume 11.2 fL (9.4-12.3); Monocytes Absolute Auto 0.6 X10*3/uL (0.1-1.2); Monocytes Percent Auto 7.4 % (2-11); Neutrophils Absolute Auto 6.4 x10*3/uL (2.0-8.3); Neutrophils Percent Auto 75.5 % (45-73); Red Blood Count 4.99 X10*6/uL (4.20-5.50)
[2022-05-28 15:50] LABS: Platelet Count 221 X10*3/uL (160-400); Troponin-I High Sensitivity < 3.5 ng/L (<3.5-17.0); White Blood Count 8.5 X10*3/uL (4.8-10.8)
[2022-05-28 15:51] LABS: SLIDE REVIEW VERIFIED
[2022-05-28] MEDS: Ondansetron ODT 4 MG TAB.RAPDIS TRANSLINGU (19:17)
[2022-05-28 20:03] VITALS: BP 107/87; PULSE 92; RESP 18; O2SAT 92
--- NOTE | 2022-05-28 20:33 | ED_ITS ---
HPI - Chest Pain General Chief Complaint: Chest Pain <NNEKA Lennon Last Filed: 05/28/22 23:12> Stated Complaint: nausea,chest pain <NNEKA Lennon - Last Filed: 05/28/22 23:12> Time Seen by Provider: 05/28/22 20:26 <NNEKA Lennon - Last Filed: 05/28/22 23:12> Source: patient <NNEKA Lennon Last Filed: 05/28/22 23:12> Mode of arrival: ambulatory <NNEKA Lennon Last Filed: 05/28/22 23:12> Limitations: no limitations <NNEKA Lennon Last Filed: 05/28/22 23:12> History of Present Illness HPI narrative: This is a 56-year-old female presenting to the emergency department with epigastric pain, nausea and vomiting times a few days. Patient tells me that for the past 2-3 days she has been experiencing a burning sensation in her epigastric region. She tells me initially she had a hard time deciphering wh ether it was chest pain for epigastric pain. She reports it is worse when she eats, she tells me it even bothers her when she drinks water. She tells me she has been having smelly burps. Patient tells me that she has shortness of breath at baseline due to her COPD however she is not experiencing anything out of the normal. She denies any fevers, chills, weakness, headache, dizziness, vision ch anges. Tells me that she has a lot of stomach issues and she takes 3 stomach medications. <NNEKA Lennon Last Filed: 05/28/22 23:12> Related Data Home Medications: Home Medications Medication Instructions Recorded Confirmed albuterol sulfate 2.5 mg/3 mL 1 amp inhalation Q6H PRN wheezing 08/12/21 04/08/22 (0.083 %) solution for nebulization aspirin 81 mg tablet,delayed 81 mg PO QPM 08/12/21 04/08/22 release budesonide-formoterol HFA 160 2 puff PO BID 08/12/21 04/08/22 mcg-4.5 mcg/actuation aerosol inhaler (Symbicort) bupropion HCl 150 mg 24 hr tablet, 150 mg PO QAM 08/12/21 04/08/22 extended release diltiazem HCl 180 mg 180 mg PO QAM 08/12/21 04/08/22 capsule,extended release 24 hr ferrous sulfate 325 mg (65 mg 1 tab PO BID 08/12/21 04/08/22 iron) tablet (FeroSul) folic acid 1 mg tablet 1 mg PO QAM 08/12/21 04/08/22 furosemide 20 mg tablet 20 mg PO QAM 08/12/21 04/08/22 lamotrigine 200 mg tablet 1 tab PO BEDTIME 08/12/21 04/08/22 lidocaine 5 % topical patch 1 patch topical DAILY 08/12/21 04/08/22 lorazepam 0.5 mg tablet 0.5 mg PO BID PRN anxiety 08/12/21 04/08/22 losartan 25 mg tablet 25 mg PO QAM 08/12/21 04/08/22 metformin 500 mg tablet,extended 1,000 mg PO BIDAC 08/12/21 04/08/22 release 24 hr montelukast 10 mg tablet 10 mg PO QPM 08/12/21 04/08/22 multivitamin 1 tab PO QPM 08/12/21 04/08/22 sertraline 100 mg tablet 100 mg PO QAM 08/12/21 04/08/22 simvastatin 40 mg tablet 1 tab PO BEDTIME 08/12/21 04/08/22 tiotropium bromide 18 mcg capsule 1 cap inhalation DAILY 08/12/21 04/08/22 with inhalation device (Spiriva with HandiHaler) zolpidem 10 mg tablet 10 mg PO BEDTIME PRN Insomnia 08/12/21 04/08/22 cyclobenzaprine 5 mg tablet 5 mg PO Q8H PRN muscle spasm 04/08/22 04/08/22 Previous Rx's Medication Instructions Recorded prednisone 20 mg tablet 40 mg PO DAILY #15 tabs 08/16/21 dexlansoprazole 60 mg 60 mg PO BEDTIME #30 caps 10/21/21 capsule,biphase delayed release (Dexilant) dicyclomine 10 mg capsule 10 mg PO QIDACHS #120 caps 10/21/21 sucralfate 1 gram tablet 1 g PO DAILY #30 tabs 10/21/21 ondansetron 8 mg disintegrating 8 mg PO BID-TID PRN for 02/03/22 tablet nausea/vomiting #90 ea docusate sodium 100 mg capsule 100 mg PO DAILY #30 caps 02/08/22 lfdrfn-umrrhgiw-gmkediw 2 cap PO QID #240 caps 02/08/22 24,000-76,000-120,000 unit capsule,delayed rel (Creon) gabapentin 800 mg tablet 800 mg PO TID #90 tabs 03/15/22 tramadol 50 mg tablet 50 mg PO Q6H #120 tabs 04/04/22 adalimumab 40 mg/0.8 mL 40 mg (0.8 mL) subcut Q2W #2 ea 05/25/22 subcutaneous pen kit (Humira Pen) aluminum-mag hydroxide-simethicone 5 ml PO 5XD PRN dyspepsia #355 mL 05/28/22 200 mg-200 mg-20 mg/5 mL oral susp (Maalox Advanced) ondansetron 4 mg disintegrating 4 mg PO Q6H PRN nausea and 05/29/22 tablet vomiting #10 tabs <NNEKA Lennon - Last Filed: 05/28/22 23:12> Allergies/Adverse Reactions: Allergies Allergy/AdvReac Type Severity Reaction Status Date / Time metoclopramide [Reglan] AdvReac Unknown diarrhea, Verified 04/08/22 12:48 vomiting <NNEKA Lennon - Last Filed: 05/28/22 23:12> Review of Systems Review of Systems: Constitutional : No Weight loss, No Fever, No Chills, No Fatigue, No Malaise ENT/Mouth : No sore throat, No Rhinorrhea Eyes: No Eye Pain, No Swelling, No Redness Cardiovascular : No Chest Pain, No SOB, No Dyspnea on Exertion, No Orthopnea, No Edema, No Palpitations Respiratory : No Cough, No Sputum, No Wheezing Gastrointestinal : No Nausea, No Vomiting, No Diarrhea, No Constipation, + abdominal Pain, No Hematochezia, No Melena Genitourinary : No Dysuria, No Urinary Frequency, No Hematuria, Musculoskeletal : No joint pain, No Myalgias, No Joint Swelling Skin : No Skin Lesions, No rash Neuro : No Weakness, No Numbness, No Dizziness, No Headache Psych : No Anxiety/Panic, No Depression All other systems reviewed and are negative <NNEKA Lennon - Last Filed: 05/28/22 23:12> Yes all other systems are reviewed and are negative <NNEKA Lennon - Last Filed: 05/28/22 23:12> [facility] Past Medical History Attestation statement: The following information was validated with the patient. <NNEKA Lennon - Last Filed: 05/28/22 23:12> Source: old records reviewed and nursing notes reviewed <NNEKA Lennon - Last Filed: 05/28/22 23:12> Medical History: Medical History Anemia Arthritis Asthma Bacterial pneumonia Bleeding hemorrhoid Chronic fatigue COPD (chronic obstructive pulmonary disease) Diabetes GERD (gastroesophageal reflux disease) Graves disease Hepatitis C HTN (hypertension) Hyperlipidemia IBS (irritable bowel syndrome) Lumbar radiculopathy Morbid obesity Multinodular thyroid Osteoarthritis Seropositive rheumatoid arthritis Tubular adenoma of colon Vitamin D deficiency <NNEKA Lennon - Last Filed: 05/28/22 23:12> Surgical History: Surgical History History of esophagogastroduodenoscopy (EGD) Hx of appendectomy Hx of cholecystectomy Hx of colonoscopy <NNEKA Lennon - Last Filed: 05/28/22 23:12> Family History Family History: Family History Mother Diabetes HTN (hypertension) CVD (cardiovascular disease) Heart problem Father Diabetes Brother Autism History of open heart surgery CVD (cardiovascular disease) Diabetes Son Diabetes Maternal Grandmother Diabetes Maternal Grandfather Diabetes <NNEKA Lennon - Last Filed: 05/28/22 23:12> Social History Social History: Social History Household Members: Spouse, Children and Other Housing: Apartment Are you a primary wound care nurse to a significant other at home: No Do you presently have visiting nurse or other home services: No Alcohol intake: never Patient Tobacco Use Status: Never used Tobacco Advance Directives: No Advance Directives Information Provided: No service: No Current occupational status: unemployed and disabled Current occupation: rt handed <NNEKA Lennon - Last Filed: 05/28/22 23:12> Physical Exam Vital Signs: Vital Signs: Last Vital Signs Temp 98.3 F 05/28/22 15:11 Pulse 92 05/28/22 20:03 Resp 18 05/28/22 20:03 BP 107/87 05/28/22 20:03 Pulse Ox 92 05/28/22 20:03 O2 Del Method 05/28/22 20:03 BMI result Body Mass Index 38.0 vss <NNEKA Lennon - Last Filed: 05/28/22 23:12> Vital Signs: Last Vital Signs Temp 98.3 F 05/28/22 15:11 Pulse 92 05/28/22 20:03 Resp 18 05/28/22 20:03 BP 107/87 05/28/22 20:03 Pulse Ox 92 05/28/22 20:03 O2 Del Method 05/28/22 20:03 BMI result Body Mass Index 38.0 <Jonelle Montes MD - Last Filed: 05/29/22 01:19> Appearance: Alert.? Oriented X3.? No acute distress.? Head: Normocephalic, atraumatic, no step-offs or deformities Eyes: Pupils equal, round and reactive to light.? Neck: Normal inspection.? Neck supple.? CVS: Normal heart rate and rhythm.? Pulses normal.? Respiratory: No respiratory distress.? Breath sounds normal.? Abdomen: Soft and tenderness to epigastric region.? Skin: Skin warm and dry.? Normal skin color.? Normal skin turgor.? Extremities: No lower extremity edema.? No calf ttp, negtive millicent. 5/5 str ength to bilateral upper and lower extremities Neuro: Oriented X 3.? No motor deficit.? No sensory deficit. CN 2-12 intact <NNEKA Lennon - Last Filed: 05/28/22 23:12> Course Reevaluation(s) Reevaluation #1: CBC appears to be within normal limits. Troponin negative, EKG nonischemic unlikely that this is ACS. Chest x-ray with no acute findings. Chemistry hemolyzed will obtain anyone at this time. D-dimer pending. <NNEKA Lennon - Last Filed: 05/28/22 23:12> Time: 20:37 <NNEKA Lennon - Last Filed: 05/28/22 23:12> Reevaluation #2: Chemistry within normal limits, no electrolyte abnormalities requiring intervention. D-dimer is negative unlikely that this is PE. Pending CT of the abdomen. <NNEKA Lennon - Last Filed: 05/28/22 23:12> Time: 22:28 <NNEKA Lennon - Last Filed: 05/28/22 23:12> Reevaluation #3: I went to re-evaluate patient she reports significant improvement after GI cocktail again supporting likely diagnosis of GERD or dyspepsia. Patient denies chest pain denies shortness of breath. I explained to her that she does not need an abdominal CT however patient requesting 1. <NNEKA Lennon - Last Filed: 05/28/22 23:12> Time: 22:44 <NNEKA Lennon - Last Filed: 05/28/22 23:12> Additional Reevaluation(s): Patient tollerating PO feels back to normal per patient. [address] Montes, pending ct of abd and pelvis if normal dc home with gi follow up educated patient on dx and tx plan and answered all questions. <NNEKA Lennon - Last Filed: 05/28/22 23:12> MDM - Chest Pain MDM Narrative Medical decision making narrative: 1907 56-year-old female presents with epigastric pain, difficulty tolerating p.o. x3 days. Reports history of stomach issues. Initially reported as chest pain however now she tells me it is more the epigastric region. Has shortness of breath at baseline however no new shortness of breath. Physical examination benign. Likely GERD, gastritis or dyspepsia. Unlikely ACS or PE however will rule out. I suspect that this is gastric in origin, unlikely cardiac. Plan at this time is basic labs, imaging, will give GI cocktail. Also given medication for pain. <NNEKA Lennon - Last Filed: 05/28/22 23:12> 1908 56-year-old female presents with epigastric pain, difficulty tolerating p.o. x3 days. Reports history of stomach issues. Initially reported as chest pain however now she tells me it is more the epigastric region. Has shortness of breath at baseline however no new shortness of breath. Physical examination benign. Likely GERD, gastritis or dyspepsia. Unlikely ACS or PE however will rule out. I suspect that this is gastric in origin, unlikely cardiac. Plan at this time is basic labs, imaging, will give GI cocktail. Also given medication for pain. I received sign-out from NNEKA Miguel. Patient's CT scan is negative for any acute findings. <Jonelle Montes MD - Last Filed: 05/29/22 01:19> Medical Records Data Attestation: I reviewed the patient's medical records. <NNEKA Lennon - Last Filed: 05/28/22 23:12> Lab Data Attestation: I reviewed the patient's lab results. <NNEKA Lennon - Last Filed: 05/28/22 23:12> Result diagrams: : 05/28/22 15:22 05/28/22 21:18 <NNEKA Lennon - Last Filed: 05/28/22 23:12> Labs: Lab Results 05/28/22 05/28/22 05/28/22 Range/Units 15:22 15:22 20:18 WBC 8.5 (4.8-10.8) X10*3/uL RBC 4.99 (4.20-5.50) X10*6/uL Hgb 12.7 (12.0-16.0) g/dl Hct 41.3 (37.0-47.0) % MCV 82.8 (80.0-98.0) fL MCH 25.5 L (27.0-33.0) pg MCHC 30.8 L (31.0-35.0) g/dl RDW 13.5 (11.0-16.0) % Plt Count 221 (160-400) X10*3/uL MPV 11.2 (9.4-12.3) fL Immature Gran % (Auto) 0.5 H (0.0-0.4) % Neut % (Auto) 75.5 H (45-73) % Lymph % (Auto) 14.5 L (20-40) % [place] % (Auto) 7.4 (2-11) % Eos % (Auto) 1.5 (0-4) % Baso % (Auto) 0.6 (0-2) % Lymph # (Auto) 1.2 (1.2-4.9) X10*3/uL [place] # (Auto) 0.6 (0.1-1.2) X10*3/uL Eos # (Auto) 0.1 (0.0-0.4) X10*3/uL Baso # (Auto) 0.1 (0.0-0.2) X10*3/uL Abs Immat Gran (auto) 0.04 H (0.00-0.03) X10*3/uL Absolute Neuts (auto) 6.4 (2.0-8.3) x10*3/uL Absolute Nucleated RBC 0.000 (0.0-0.012) X10*3/uL Nucleated RBC % (auto) 0.0 (0.0-0.2) /100WBC Smear Tech's Comments VERIFIED D-Dimer High Sensitivty NG/ML Sodium 138 (135-145) mmol/L Potassium 4.0 (3.3-5.1) mmol/L Chloride 99 (96-108) mmol/L Carbon Dioxide 28 (22-29) mmol/L Anion Gap 15 (12-20) BUN 14 (9-16) mg/dL Creatinine 0.82 (0.5-1.4) mg/dL Estim Creat Clear Calc 83.9 Estimated GFR > 60 Random Glucose 195 H (60-115) mg/dL Calcium 9.3 (8.4-10.2) mg/dL Total Bilirubin (0.0-1.0) mg/dL AST (5-31) U/L ALT (0-31) U/L Alkaline Phosphatase (39-117) U/L Troponin I High Sens < 3.5 (<3.5-17.0) ng/L Total Protein (6.5-8.0) g/dL Albumin (3.5-5.0) g/dL Lipase 11 (8-78) U/L 10/22/22 10/22/22 Range/Units 21:18 21:18 WBC (4.8-10.8) X10*3/uL RBC (4.20-5.50) X10*6/uL Hgb (12.0-16.0) g/dl Hct (37.0-47.0) % MCV (80.0-98.0) fL MCH (27.0-33.0) pg MCHC (31.0-35.0) g/dl RDW (11.0-16.0) % Plt Count (160-400) X10*3/uL MPV (9.4-12.3) fL Immature Gran % (Auto) (0.0-0.4) % Neut % (Auto) (45-73) % Lymph % (Auto) (20-40) % [place] % (Auto) (2-11) % Eos % (Auto) (0-4) % Baso % (Auto) (0-2) % Lymph # (Auto) (1.2-4.9) X10*3/uL [place] # (Auto) (0.1-1.2) X10*3/uL Eos # (Auto) (0.0-0.4) X10*3/uL Baso # (Auto) (0.0-0.2) X10*3/uL Abs Immat Gran (auto) (0.00-0.03) X10*3/uL Absolute Neuts (auto) (2.0-8.3) x10*3/uL Absolute Nucleated RBC (0.0-0.012) X10*3/uL Nucleated RBC % (auto) (0.0-0.2) /100WBC Smear Tech's Comments D-Dimer High Sensitivty < 150 NG/ML Sodium 137 (135-145) mmol/L Potassium 4.1 (3.3-5.1) mmol/L Chloride 100 (96-108) mmol/L Carbon Dioxide 27 (22-29) mmol/L Anion Gap 14 (12-20) BUN 13 (9-16) mg/dL Creatinine 0.82 (0.5-1.4) mg/dL Estim Creat Clear Calc 83.9 Estimated GFR > 60 Random Glucose 201 H (60-115) mg/dL Calcium 9.2 (8.4-10.2) mg/dL Total Bilirubin 0.2 (0.0-1.0) mg/dL AST 26 D (5-31) U/L ALT 33 H (0-31) U/L Alkaline Phosphatase 120 H D (39-117) U/L Troponin I High Sens (<3.5-17.0) ng/L Total Protein 6.8 (6.5-8.0) g/dL Albumin 3.7 (3.5-5.0) g/dL Lipase (8-78) U/L <NNEKA Lennon - Last Filed: 05/28/22 23:12> Lab Results 05/28/22 05/28/22 05/28/22 Range/Units 15:22 15:22 20:18 WBC 8.5 (4.8-10.8) X10*3/uL RBC 4.99 (4.20-5.50) X10*6/uL Hgb 12.7 (12.0-16.0) g/dl Hct 41.3 (37.0-47.0) % MCV 82.8 (80.0-98.0) fL MCH 25.5 L (27.0-33.0) pg MCHC 30.8 L (31.0-35.0) g/dl RDW 13.5 (11.0-16.0) % Plt Count 221 (160-400) X10*3/uL MPV 11.2 (9.4-12.3) fL Immature Gran % (Auto) 0.5 H (0.0-0.4) % Neut % (Auto) 75.5 H (45-73) % Lymph % (Auto) 14.5 L (20-40) % [place] % (Auto) 7.4 (2-11) % Eos % (Auto) 1.5 (0-4) % Baso % (Auto) 0.6 (0-2) % Lymph # (Auto) 1.2 (1.2-4.9) X10*3/uL [place] # (Auto) 0.6 (0.1-1.2) X10*3/uL Eos # (Auto) 0.1 (0.0-0.4) X10*3/uL Baso # (Auto) 0.1 (0.0-0.2) X10*3/uL Abs Immat Gran (auto) 0.04 H (0.00-0.03) X10*3/uL Absolute Neuts (auto) 6.4 (2.0-8.3) x10*3/uL Absolute Nucleated RBC 0.000 (0.0-0.012) X10*3/uL Nucleated RBC % (auto) 0.0 (0.0-0.2) /100WBC Smear Tech's Comments VERIFIED D-Dimer High Sensitivty NG/ML Sodium 138 (135-145) mmol/L Potassium 4.0 (3.3-5.1) mmol/L Chloride 99 (96-108) mmol/L Carbon Dioxide 28 (22-29) mmol/L Anion Gap 15 (12-20) BUN 14 (9-16) mg/dL Creatinine 0.82 (0.5-1.4) mg/dL Estim Creat Clear Calc 83.9 Estimated GFR > 60 Random Glucose 195 H (60-115) mg/dL Calcium 9.3 (8.4-10.2) mg/dL Total Bilirubin (0.0-1.0) mg/dL AST (5-31) U/L ALT (0-31) U/L Alkaline Phosphatase (39-117) U/L Troponin I High Sens < 3.5 (<3.5-17.0) ng/L Total Protein (6.5-8.0) g/dL Albumin (3.5-5.0) g/dL Lipase 11 (8-78) U/L 05/28/22 05/28/22 Range/Units 21:18 21:18 WBC (4.8-10.8) X10*3/uL RBC (4.20-5.50) X10*6/uL Hgb (12.0-16.0) g/dl Hct (37.0-47.0) % MCV (80.0-98.0) fL MCH (27.0-33.0) pg MCHC (31.0-35.0) g/dl RDW (11.0-16.0) % Plt Count (160-400) X10*3/uL MPV (9.4-12.3) fL Immature Gran % (Auto) (0.0-0.4) % Neut % (Auto) (45-73) % Lymph % (Auto) (20-40) % [place] % (Auto) (2-11) % Eos % (Auto) (0-4) % Baso % (Auto) (0-2) % Lymph # (Auto) (1.2-4.9) X10*3/uL [place] # (Auto) (0.1-1.2) X10*3/uL Eos # (Auto) (0.0-0.4) X10*3/uL Baso # (Auto) (0.0-0.2) X10*3/uL Abs Immat Gran (auto) (0.00-0.03) X10*3/uL Absolute Neuts (auto) (2.0-8.3) x10*3/uL Absolute Nucleated RBC (0.0-0.012) X10*3/uL Nucleated RBC % (auto) (0.0-0.2) /100WBC Smear Tech's Comments D-Dimer High Sensitivty < 150 NG/ML Sodium 137 (135-145) mmol/L Potassium 4.1 (3.3-5.1) mmol/L Chloride 100 (96-108) mmol/L Carbon Dioxide 27 (22-29) mmol/L Anion Gap 14 (12-20) BUN 13 (9-16) mg/dL Creatinine 0.82 (0.5-1.4) mg/dL Estim Creat Clear Calc 83.9 Estimated GFR > 60 Random Glucose 201 H (60-115) mg/dL Calcium 9.2 (8.4-10.2) mg/dL Total Bilirubin 0.2 (0.0-1.0) mg/dL AST 26 D (5-31) U/L ALT 33 H (0-31) U/L Alkaline Phosphatase 120 H D (39-117) U/L Troponin I High Sens (<3.5-17.0) ng/L Total Protein 6.8 (6.5-8.0) g/dL Albumin 3.7 (3.5-5.0) g/dL Lipase (8-78) U/L <Jonelle Montes MD - Last Filed: 05/29/22 01:19> Imaging Data CT scan - abdomen: Radiologist's impression: TECHNIQUE: Multidetector volumetric images were obtained from the superior aspect of the liver through the pubic symphysis following administration 100 mL of Omnipaque 350 intravenous contrast. Sagittal and coronal reformatted images were obtained on the technologist's workstation.? Oral contrast: No This CT examination was performed using dose optimization techniques as appropriate, variously including the following: *Automated exposure control *Adjustment of mA and/or kV according to patient size (this includes techniques or standardized protocols for targeted exams where dose is matched to indication/reason for exam; i.e. extremities or head) *Use of iterative reconstruction technique DLP: 1253 mGy-cm FINDINGS: LUNG BASES: Mild dependent bibasilar atelectasis.? LIVER, GALLBLADDER, AND BILIARY TREE: Diffuse hepatic hypoattenuation/steatosis. Normal hepatic size. No liver lesion. No biliary ductal dilation. Status post cholecystectomy. Surgical clips in the gallbladder fossa.? PANCREAS: Unremarkable.? SPLEEN: Unremarkable.? ADRENAL GLANDS: Unremarkable.? KIDNEYS AND URETERS: Nephrograms are symmetric. No renal calculi or hydronephrosis. A few small hypodense left renal lesions consistent with cysts, largest 2.2 cm in size in the midpole. No perinephric stranding or collection.? BLADDER: Unremarkable.? GASTROINTESTINAL TRACT: No dilated bowel loops. No bowel wall thickening. Smaller moderate amount of formed stool seen throughout the colon. Appendix is not discretely visualized. No inflammatory change at the cecal base. No ascites or free air.? ABDOMINAL WALL: No significant hernia is appreciated.? LYMPH NODES: No lymphadenopathy. VASCULAR: Normal caliber abdominal aorta. PELVIC VISCERA: Unremarkable.? OSSEOUS STRUCTURES: Unchanged chronic/healed left lower lateral rib fracture deformities. Mild multilevel degenerative disc disease. No acute fracture or suspicious osseous lesion.? CT/CT abdomen pelvis w IV con IMPRESSION: 1.? No acute intra-abdominal process identified. 2.? Hepatic steatosis. 3.? Status post cholecystectomy. ? Fleischner guidelines were followed. <Jonelle Montes MD - Last Filed: 05/29/22 01:19> ECG Data ECG #1: Attestation: I personally reviewed and interpreted this ECG as follows: <NNEKA Lennon - Last Filed: 05/28/22 23:12> ECG interpretation date: 05/28/22 <NNEKA Lennon - Last Filed: 05/28/22 23:12> ECG interpretation time: 20:37 <NNEKA Lennon Last Filed: 05/28/22 23:12> Prior ECG tracings: available for review <NNEKA Lennon - Last Filed: 05/28/22 23:12> Interpretation: Ventricular rate of 95, IL normal, QRS normal, QT/QTC normal. EKG with normal sinus rhythm. No significant changes when compared to EKG from August 2021. <NNEKA Lennon - Last Filed: 05/28/22 23:12> Critical Care Time Critical Care Time Critical Care Time: No <NENKA Lennon Last Filed: 05/28/22 23:12> Discharge Plan Discharge Clinical Impression: Nausea, Abdominal pain, Dyspepsia, GERD (gastroesophageal reflux disease) <NNEKA Lennon - Last Filed: 05/28/22 23:12> Patient Disposition: Home, Self-Care <NNEKA Lennon Last Filed: 05/28/22 23:12> Instructions: Diet for Stomach Ulcers and Gastritis (ED), Gastroesophageal Reflux Disease (ED), Blunt Abdominal Injury (ED), Acute Nausea and Vomiting (ED), Acute Abdominal Pain (ED), Abdominal Pain (ED), Upper Endoscopy (DC) <NNEKA Lennon Last Filed: 05/28/22 23:12> Additional Instructions: Take your medications as prescribed. If you were prescribed antibiotics today, it is important that you take your medication to their entirety, do not skip any doses, do not finish them early. Follow-up with your primary care provider this week. Please follow-up with the Gastroenterology team information below, you may require an upper endoscopy to further evaluate the symptoms. Return to the emergency department with new or worsening symptoms. Such as fe vers, chills, chest pain, shortness of breath, nausea, vomiting, dizziness, headache, vision changes, lethargy In case of emergency call 911 <NNEKA Lennon Last Filed: 05/28/22 23:12> Prescriptions: New alum-mag hydroxide-simeth [Maalox Advanced] 200-200-20 mg/5 mL suspension 5 ml PO 5XD PRN (Reason: dyspepsia) Qty: 355 0RF Rx Instructions: administer between meals and at bedtime ondansetron 4 mg tablet,disintegrating 4 mg PO Q6H PRN (Reason: nausea and vomiting) Qty: 10 0RF No Action ondansetron 8 mg tablet,disintegrating 8 mg PO BID-TID PRN (Reason: for nausea/vomiting) Qty: 90 1RF docusate sodium 100 mg capsule 100 mg PO DAILY Qty: 30 6RF Creon 24,000-76,000 -120,000 unit capsule,delayed release(DR/EC) 2 cap PO QID Qty: 240 2RF gabapentin 800 mg tablet 800 mg PO TID Qty: 90 2RF tramadol 50 mg tablet 50 mg PO Q6H Qty: 120 1RF Humira Pen 40 mg/0.8 mL pen injector kit 40 mg subcut Q2W Qty: 2 0RF diltiazem HCl 180 mg capsule,extended release 24hr 180 mg PO QAM sertraline 100 mg tablet 100 mg PO QAM aspirin 81 mg tablet,delayed release (DR/EC) 81 mg PO QPM lorazepam 0.5 mg tablet 0.5 mg PO BID PRN (Reason: anxiety) ferrous sulfate [FeroSul] 325 mg (65 mg iron) tablet 1 tab PO BID lidocaine 5 % adhesive patch,medicated 1 patch topical DAILY losartan 25 mg tablet 25 mg PO QAM folic acid 1 mg tablet 1 mg PO QAM montelukast 10 mg tablet 10 mg PO QPM furosemide 20 mg tablet 20 mg PO QAM zolpidem 10 mg tablet 10 mg PO BEDTIME PRN (Reason: Insomnia) metformin 500 mg tablet extended release 24 hr 1,000 mg PO BIDAC bupropion HCl 150 mg tablet extended release 24 hr 150 mg PO QAM budesonide-formoterol [Symbicort] 160-4.5 mcg/actuation HFA aerosol inhaler 2 puff PO BID multivitamin Tablet 1 tab PO QPM lamotrigine 200 mg tablet 1 tab PO BEDTIME albuterol sulfate 2.5 mg /3 mL (0.083 %) solution for nebulization 1 amp inhalation Q6H PRN (Reason: wheezing) simvastatin 40 mg tablet 1 tab PO BEDTIME Spiriva with HandiHaler 18 mcg capsule, w/inhalation device 1 cap inhalation DAILY prednisone 20 mg Tablet 40 mg PO DAILY Qty: 15 0RF Rx Instructions: 40mg daily for 5 days, then 20mg daily for 5 days sucralfate 1 gram tablet 1 g PO DAILY Qty: 30 6RF dicyclomine 10 mg capsule 10 mg PO QIDACHS Qty: 120 6RF dexlansoprazole [Dexilant] 60 mg capsule,biphase delayed releas 60 mg PO BEDTIME Qty: 30 6RF cyclobenzaprine 5 mg tablet 5 mg PO Q8H PRN (Reason: muscle spasm) <NNEKA Lennon - Last Filed: 05/28/22 23:12> Referrals: [facility] [Provider Group] - 2 days Physician,Unknown J [Physician] - 2 days <NNEKA Lennon - Last Filed: 05/28/22 23:12> Stand Alone Forms: Work/School Release <NNEKA Lennon - Last Filed: 05/28/22 23:12>
[2022-05-28 20:41] LABS: Anion Gap 15 (12-20); Blood Urea Nitrogen 14 mg/dL (9-16); Calcium 9.3 mg/dL (8.4-10.2); Carbon Dioxide 28 mmol/L (22-29); Chloride 99 mmol/L (96-108); Creatinine Clr Calc Pharmacy 83.9; Estimated Glomerular Filt Rate > 60; Glucose Random 195 mg/dL (60-115); Sodium 138 mmol/L (135-145)
--- OUTSIDE RECORDS SUMMARY | 2022-05-28 20:47 | XMS_ITS | Continuity of Care Document ---
:1965 Author Organization [facility] Address [address] [place] [phone]- Care Team Providers Name Role Phone Dee Valenzuela MD Primary Care Physician Encounter [facility] Date(s): 07/08/21 - 08/07/21 [facility] [address] [place] [id number] Attending Physician: Kishor Brooke Admitting Physician: AdmtrKishor Referring Physician: Admtr ArJohn Allergies, Adverse Reactions, Alerts Substance Reaction Severity Status Bactrim Active Immunizations Given and Recorded Vaccine Date Status Refusal Reason pneumococcal 23-valent vaccine 06/01/15 Given Medications Acetaminophen = 1,000 mg, By Mouth, 3 times a day, PRN as needed for pain, 0 Refills, Maintenance, 08/26/16 17:00:21 Start Date: 08/26/16 Status: OrderedAdvil By Mouth, Daily, Refills 0, Maintenance, 04/03/17 11:05:38 Start Date: 04/03/17 Status: OrderedAl hydroxide/Mg hydroxide/simethicone 200 mg-200 mg-20 mg/5 ml oral suspension 10 mL, By Mouth, 4 times a day, PRN Dyspepsia, # 1,200 mL, 0 Refills, Maintenance, 06/04/15 11:48:28, Suspension Start Date: 06/04/15 Stop Date: 07/04/15 Status: Orderedalbuterol 0.083% inhalation solution 3 mL = 2.5 mg, Neb, Every 6 hours, PRN Wheezing/Shortness of Breath, # 180 mL, 11 Refills, Maintenance, 07/06/20 9:14:00 EST, Inhalation Solution, [facility], asthma j45.9, 157, cm,07/01/20 14:53:00 EST, Height, 118, kg, 01/14/20... Start Date: 07/06/20 Stop Date: 07/01/21 Status: OrderedAlbuterol 90 mcg Inhaler 2, puffs, Inhalation, Every 4 hours, Maintenance, 08/26/15 18:15:35 Start Date: 08/26/15 Status: OrderedAmmonium Lactate 12 % cream Ammonium Lactate 12 % cream, Refills 0, Maintenance, apply topically as directed, 03/13/18 12:42:09 EDT, Compound Start Date: 03/13/18 Status: OrderedAspirin = 81 mg, By Mouth, Daily, 0 Refills, Maintenance, 08/26/15 18:14:09 Start Date: 08/26/15 Status: OrderedBuPROpion = 150 mg, By Mouth, Daily, 0 Refills, Maintenance, 06/11/19 9:52:22 EST Start Date: 06/11/19 Status: Orderedcholecalciferol 2000 intl units oral tablet = 2,000 International_Units, By Mouth, Daily, # 30 tablet, 0 Refills, Maintenance, 06/04/15 11:52:04, Tablet Start Date: 06/04/15 Stop Date: 07/04/15 Status: OrderedclonazePAM 0.5 mg oral tablet = 0.5 mg, By Mouth, 2 times a day, # 60 tablet, 0 Refills, Maintenance, 06/04/15 11:50:07, Tablet Start Date: 06/04/15 Stop Date: 07/04/15 Status: OrderedcloNIDine 0.1 mg oral tablet 1 tablet = 0.1 mg, By Mouth, Daily at bedtime, # 30 tablet, 0 Refills, Maintenance, 06/04/15 11:50:28, Tablet Start Date: 06/04/15 Stop Date: 07/04/15 Status: OrderedCozaar 25 mg oral tablet 25 mg, 1, tablet, By Mouth, Daily, # 30 tablet, Refills 0, Maintenance, 10/09/17 9:02:55 Start Date: 10/09/17 Status: OrderedCPAP Machine See Instructions, # 1 each, Refills 11, Tot. Refills 11, Maintenance, CPAP 6 - 10 supplies Refill mask and supplies A4604 Heated Tubing/Climate line or A7037 Tubing A7038 or A7039 Filters A7036 Chin strap A7046 Humidifier Chamber A7035... Start Date: 06/07/21 Status: OrderedCVS Glucose Bits CVS Glucose Bits, 1 Gm, By Mouth, Refills 0, Maintenance, prn use as directed if BS less than 70 mg,03/13/18 12:52:06 EDT, Compound Start Date: 03/13/18 Status: OrderedDexilant 30 mg oral delayed release capsule By Mouth, 2 times a day, 0 Refills, Maintenance, 06/11/19 9:54:07 EST Start Date: 06/11/19 Status: OrderedDexilant 60 mg oral delayed release capsule 1 capsule = 60 mg, By Mouth, Daily, # 30 capsule, 0 Refills, Maintenance, 08/26/16 16:59:39, EC Capsule Start Date: 08/26/16 Status: OrderedDexilant 60 mg oral delayed release capsule TAKE 1 CAPSULE BY MOUTH AT BEDTIME Start Date: 12/23/19 Status: Ordereddiltiazem 180 mg/24 hours oral tablet, extended release 1 tablet = 180 mg, By Mouth, Daily, 0 Refills, Maintenance, 03/22/16 15:50:56 Start Date: 03/22/16 Status: OrderedDoxycycline Maintenance, 10/09/17 9:03:19 Start Date: 10/09/17 Status: Orderedferrous sulfate 325 mg oral enteric coated tablet 1 tablet = 325 mg, By Mouth, Daily, # 30 tablet, 0 Refills, Maintenance, 06/04/15 11:47:45, EC Tablet Start Date: 06/04/15 Stop Date: 07/04/15 Status: OrderedFlonase 50 mcg/inh nasal spray 1 sprays, Nares, Both, 2 times a day, # 16 Gm, 0 Refills, Maintenance, 10/09/17 9:03:12, [place] Start Date: 10/09/17 Status: OrderedFolic Acid By Mouth, Daily, 0 Refills, Maintenance, 06/11/19 9:55:11 EST Start Date: 06/11/19 Status: OrderedFreestyle Lite Test Strips See Instructions, # 150 each, Refills 5, Tot. Refills 5, Maintenance, 4 x a day., 08/02/17 11:31:49,E11.9, Compound Start Date: 08/02/17 Status: Orderedfurosemide 20 mg oral tablet 20 mg, 1, tablet, By Mouth, Daily, Refills 0, Maintenance, 03/22/16 15:52:34 Start Date: 03/22/16 Status: OrderedGabapentin = 400 mg, By Mouth, take 2 capsules by mouth 3 times a day, 0 Refills, Maintenance, 03/13/18 12:44:11 EDT Start Date: 03/13/18 Status: OrderedGabapentin = 800 mg, By Mouth, 3 times a day, 0 Refills, Maintenance, 06/11/19 9:56:50 EST Start Date: 06/11/19 Status: Orderedgabapentin 300 mg oral capsule 1 capsule = 300 mg, By Mouth, 2 times a day, # 60 capsule, 0 Refills, Maintenance, 06/04/15 11:51:39, Capsule Start Date: 06/04/15 Stop Date: 07/04/15 Status: OrderedHumalog 100 u/ml subcutaneous injection See Instructions, 5-15 units with meal per scale when on predinisone., # 20 mL, 3 Refills, Maintenance, 08/02/17 11:28:27, E11.9 Start Date: 08/02/17 Status: OrderedHydrochlorothiazide 12. 5 mg, By Mouth, Daily, 0 Refills, Maintenance, 03/13/18 12:45:38 EDT Start Date: 03/13/18 Status: Orderedhydrochlorothiazide 12.5 mg oral capsule 1 capsule = 12.5 mg, By Mouth, Daily, # 30 capsule, 0 Refills, Maintenance, 10/09/17 9:03:32, Capsule Start Date: 10/09/17 Status: OrderedInsulin Glargine = 10 units, Subcutaneous Infusion, prn, 0 Refills, Maintenance, 04/03/17 11:05:03 EDT Start Date: 04/03/17 Status: Orderedinsulin glargine 100 u/ml subcutaneous solution See Instructions, 10 units at bedtime., # 10 mL, 3 Refills, Maintenance, 08/02/17 11:26:38, Injection Start Date: 08/02/17 Status: OrderedInsulin Syringe, BD Ultra-Fine 0.3 cc 31 G x 8 mm (12/20in) See Instructions, # 100 each, Refills 3, Tot. Refills 3, Maintenance, Up to 4 injections a day., 08/02/17 11:30:49, E11.9, Compound Start Date: 08/02/17 Stop Date: 07/28/18 Status: OrderedInsulin Syringe, BD Ultra-Fine 0.5 cc 31 G x 8 mm (12/20in) See Instructions, # 150 each, Refills 5, Tot. Refills 5, Maintenance, use to inject insulin 4x daily, 07/08/15 17:53:00, Compound Start Date: 07/08/15 Stop Date: 01/04/16 Status: Orderedlamotrigine 200 mg oral tablet 1 tablet = 200 mg, By Mouth, Daily, # 30 tablet, 0 Refills, Maintenance, 06/04/15 11:54:01, Tablet Start Date: 06/04/15 Stop Date: 07/04/15 Status: OrderedLidocaine 5% Topical 1 application, Topically, apply a thin film to the affected areas, 0 Refills, Maintenance, Ointment Start Date: 08/26/16 Status: Orderedloperamide 2 mg oral capsule 2 mg, 1, capsule, By Mouth, Every 4 hours, PRN, # 60 capsule, Refills 0, Maintenance, for loose stool, 10/09/17 9:03:26 Start Date: 10/09/17 Status: Orderedlosartan 25 mg oral tablet 25 mg, 1, tablet, By Mouth, Daily, Refills 0, Maintenance, 03/22/16 15:52:14 Start Date: 03/22/16 Status: Orderedmepolizumab 100 mg subcutaneous injection = 100 mg, Subcutaneous Infusion, once a month, 0 Refills, Maintenance, 02/22/18 10:58:10 EDT Start Date: 02/22/18 Status: OrderedmetFORMIN 500 mg oral tablet, extended release 2 tablet = 1,000 mg, By Mouth, 2 times a day, # 360 tablet, 2 Refills, Maintenance, 12/19/17 12:31:00, ER Tablet, E11.9 Start Date: 12/19/17 Stop Date: 09/15/18 Status: OrderedmetFORMIN 500 mg oral tablet, extended release 2 tablet = 1,000 mg, By Mouth, 2 times a day, # 360 tablet, 1 Refills, Maintenance, 12/05/16 9:31:24, ER Tablet Start Date: 12/05/16 Stop Date: 06/03/17 Status: Orderedmethimazole 5 mg oral tablet 5 mg, 1, tablet, By Mouth, Daily, Refills 0, Maintenance, 03/13/18 12:48:09 EDT Start Date: 03/13/18 Status: Orderedmethocarbamol 500 mg oral tablet 1 tablet = 500 mg, 0 Refills, Maintenance, 08/27/16 12:34:34 Start Date: 08/27/16 Status: OrderedMethotrexate = 2.5 mg, By Mouth, 6 tablets on Monday, 0 Refills, Maintenance, 06/11/19 10:03:08 EST Start Date: 06/11/19 Status: OrderedMiconazole 2% Topical Cream 1 applicator, Topically, 2 times a day, 0 Refills, Maintenance Start Date: 08/26/16 Status: OrderedMultivitamin 1 tablet, By Mouth, Daily, in am, 0 Refills, Maintenance, 04/20/12 11:03:10 EDT Start Date: 04/20/12 Status: OrderedNebulizer/Compressor See Instructions, # 1 each, Refills 11, Tot. Refills 11, Maintenance, E0570 Nebulizer A7003 Neb DispSet A7014 Neb non-Disp Filter A7005 Neb Non-Disp set A7015 Aerosol Mask A7013 Neb Disp Filter lengthof need lifetime 99 months DX, 06/07/21 16:37... Start Date: 06/07/21 Status: Orderednitroglycerin 0.4 mg sublingual tablet 1 tablet = 0.4 mg, Sublingual, Every 5 minutes, PRN for chest pain, # 100 tablet, 0 Refills, Maintenance, 08/26/15 18:01:58, Tablet Start Date: 08/26/15 Status: OrderedNucala Prefilled Autoinjector 100 mg/mL subcutaneous solution = 100 mg, Subcutaneous Infusion, Every 28 days, j45.40, # 1 each, 11 Refills, Maintenance, 12/28/20 17:19:00 EDT, [facility], 157, cm, 07/01/20 14:53:00 EST, Height, 118, kg, 01/14/20 11:52:00 EDT, Dry Weight Start Date: 12/28/20 Status: OrderedOndansetron = 8 mg, 2 times a day, prn, 0 Refills, Maintenance, 02/22/18 10:55:56 EDT Start Date: 02/22/18 Status: OrderedPen [place], 31 G x 5 mm BD Ultra Fine III See Instructions, # 200 each, Refills 5, Tot. Refills 5, Maintenance, use to inject insulin 5 times daily. for T2DM/e11, 02/03/16 16:16:46, Compound Start Date: 02/03/16 Stop Date: 08/01/16 Status: OrderedPerphenazine = 4 mg, By Mouth, 2 times a day, 0 Refills, Maintenance, 06/11/19 10:01:12 EST Start Date: 06/11/19 Status: OrderedpredniSONE 10 mg oral tablet 1 tablet = 10 mg, By Mouth, Daily, 0 Refills, Maintenance, 08/27/16 12:34:18 Start Date: 08/27/16 Status: OrderedPreparation H 1 applicator, Rectally, 2 times a day, 0 Refills, Maintenance, 02/22/18 10:56:16 EDT Start Date: 02/22/18 Status: OrderedProAir HFA 90 mcg/inh inhalation aerosol with adapter 2, puffs, Inhalation, Every 6 hours, PRN, use with spacer chamber, # 1 each, Refills 5, Tot. Refills5, Maintenance, 06/05/20 9:55:00 EDT, Aerosol, Route to Pharmacy Electronically, [id number], [facility],... Start Date: 06/05/20 Stop Date: 12/02/20 Status: OrderedPromethazine = 25 mg, By Mouth, Every 6 hours, PRN as needed for nausea/vomiting, 0 Refills, Maintenance, 08/26/16 17:02:33 Start Date: 08/26/16 Status: Orderedsimvastatin 40 mg oral tablet 40 mg, 1, tablet, By Mouth, Daily at bedtime, # 30 tablet, Refills 0, Maintenance, 02/22/18 10:56:29EDT Start Date: 02/22/18 Status: OrderedSingulair 10 mg oral tablet 10 mg, 1, tablet, By Mouth, Daily in PM, J45.90, # 30 tablet, Refills 5, Tot. Refills 5, Maintenance, 06/18/21 14:49:00 EST, Route to Pharmacy Electronically, [facility], 157, cm, 07/01/20 14:53:00 EST, Height, 118, kg, 01/14/20 11... Start Date: 06/18/21 Status: OrderedSpiriva HandiHaler 18 mcg inhalation capsule 1 capsule = 18 mcg, Inhalation, Daily, j44.9, # 30 capsule, 5 Refills, Maintenance, 06/18/21 14:49:00 EST, [facility], Asthma J45.90, 157, cm, 07/01/20 14:53:00 EST, Height, 118, kg, 01/14/20 11:52:00 EDT, Dry Weight Start Date: 06/18/21 Status: Orderedsulindac 200 mg oral tablet 1 tablet = 200 mg, By Mouth, 2 times a day, # 60 tablet, 0 Refills, Maintenance, 03/13/18 12:40:15 EDT, Tablet Start Date: 03/13/18 Status: OrderedSymbicort 160mcg/4.5mcg Inhaler 2, puffs, Inhalation, 2 times a day, in the morning and the evening use with spacer chamber,j44.9, #1 each, Refills 5, Tot. Refills 5, Maintenance, 06/18/21 14:48:00 EST, Aerosol, Route to Pharmacy Electronically, [id number]... Start Date: 06/18/21 Status: OrderedtraMADol 50 mg oral tablet 1 tablet = 50 mg, By Mouth, Every 6 hours, PRN as needed for pain, 0 Refills, Maintenance, 07/06/15 15:32:56 EST, Tablet Start Date: 07/06/15 Status: OrderedTrixaicin HP 0.075% topical cream 1 application, Topically, 3 times a day, # 30 Gm, 0 Refills, Maintenance, 08/27/16 12:35:04, Cream Start Date: 08/27/16 Status: OrderedTrulicity Pen 0.75 mg/0.5 mL subcutaneous solution 0.5 mL = 0.75 mg, Subcutaneous Injection, Every Monday, Please make an appt for follow up for further refills, # 2.5 mL, 3 Refills, Maintenance, 03/30/18 13:17:58 EDT, Solution, E11.9 Start Date: 03/30/18 Status: OrderedZoloft 100 mg oral tablet 1 tablet = 100 mg, By Mouth, Daily, # 30 tablet, 0 Refills, Maintenance, 06/04/15 12:07:11, Tablet Start Date: 06/04/15 Stop Date: 07/04/15 Status: Orderedzolpidem 5 mg oral tablet 1 tablet = 5 mg, By Mouth, Daily at bedtime, PRN for sleep, pt takes 10 mg prn, 0 Refills, Maintenance, 10/09/17 9:03:06 EST, Tablet Start Date: 10/09/17 Status: Ordered Problem List Condition Effective Dates Status Health Status Informant 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) Chronic back pain greater than 3 Active months duration(Confirmed) Depression(Confirmed) Active Diabetes(Confirmed) Active Endometrial hyperplasia(Confirmed) Active Eosinophilic asthma(Confirmed) Active Asthma exacerbation(Confirmed) Active HTN (hypertension)(Confirmed) Active Iron deficiency anemia(Confirmed) Active Iron deficiency anemia(Confirmed) Active JENNIFER on CPAP(Confirmed) Active Premenopausal menorrhagia(Confirmed) Active Severe persistent asthma(Confirmed) Active Fibroid uterus(Confirmed) Active Social History Social History Type Response Smoking Status Never smoker; Tobacco user i n household: No entered on: 03/22/16 Sex
--- OUTSIDE RECORDS SUMMARY | 2022-05-28 20:47 | XMS_ITS | Continuity of Care Document ---
:1965 Author Organization [facility] Address [address] [place] [phone]- Care Team Providers Name Role Phone Dee Valenzuela MD Primary Care Physician Encounter [facility] [place] Date(s): 08/26/21 - 09/25/21 [facility] [address] [place] [id number] Attending Physician: Kishor Brooke Admitting Physician: AdmtrKishor Referring Physician: Admtr, Ar8 Allergies, Adverse Reactions, Alerts Substance Reaction Severity [...] Refills, Maintenance, 07/06/20 9:14:00 EST, Inhalation Solution, [facility], asthma j45.9, 157, cm,07/01/20 14:53:00 [...] 16 Gm, 0 Refills, Maintenance, 10/09/17 9:03:12, [place] Start Date: 10/09/17 Status: OrderedFolic Acid By [...] each, 11 Refills, Maintenance, 12/28/20 17:19:00 EDT, [facility], 157, cm, 07/01/20 14:53:00 EST, Height, 118, kg, 01/14/20 11:52:00 EDT, Dry Weight Start Date: 12/28/20 Status: OrderedOndansetron = 8 mg, 2 times a day, prn, 0 Refills, Maintenance, 02/22/18 10:55:56 EDT Start Date: 02/22/18 Status: OrderedPen [place], 31 G x 5 mm BD Ultra [...] 9:55:00 EDT, Aerosol, Route to Pharmacy Electronically, [id number], [facility],... Start Date: 06/05/20 Stop Date: [...] 06/18/21 14:49:00 EST, Route to Pharmacy Electronically, [facility], 157, cm, 07/01/20 14:53:00 EST, Height, 118, kg, 01/14/20 11... Start Date: 06/18/21 Status: OrderedSpiriva HandiHaler 18 mcg inhalation capsule 1 capsule = 18 mcg, Inhalation, Daily, j44.9, # 30 capsule, 5 Refills, Maintenance, 06/18/21 14:49:00 EST, [facility], Asthma J45.90, 157, cm, 07/01/20 [...] 14:48:00 EST, Aerosol, Route to Pharmacy Electronically, [id number]... Start Date: 06/18/21 Status: OrderedtraMADol 50 mg [...] on CPAP(Confirmed) Active Premenopausal menorrhagia(Confirmed) Active Severe obesity(Confirmed) Active Severe persistent asthma(Confirmed) Active Fibroid uterus(Confirmed) Active Social History Social History Type Response Smoking Status Never smoker; Tobacco user i n household: No entered on: 03/22/16 Sex
--- OUTSIDE RECORDS SUMMARY | 2022-05-28 20:47 | XMS_ITS | Continuity of Care Document ---
:1965 Author Organization [facility] Address [address] [place] [id number]- Care Team Providers Name Role Phone Dee Valenzuela MD [id number] - 08[facility] [address] [place] [id number] Attending Physician: Humza Collins MD Admitting Physician: Humza Collins MD Referring Physician: Dee Valenzuela MD Allergies, Adverse Reactions, Alerts Substance Reaction Severity [...] Refills, Maintenance, 07/06/20 9:14:00 EST, Inhalation Solution, [facility], asthma j45.9, 157, cm,07/01/20 14:53:00 EST, [...] 16 Gm, 0 Refills, Maintenance, 10/09/17 9:03:12, [place] Start Date: 10/09/17 Status: OrderedFolic Acid By [...] 0.3 cc 31 G x 8 mm (16in) See Instructions, # 100 each, Refills 3, Tot. Refills 3, Maintenance, Up to 4 injections a day., 08/02/17 11:30:49, E11.9, Compound Start Date: 08/02/17 Stop Date: 07/28/18 Status: OrderedInsulin Syringe, BD Ultra-Fine 0.5 cc 31 G x 8 mm (16in) See Instructions, # 150 each, Refills 5, [...] each, 11 Refills, Maintenance, 12/28/20 17:19:00 EDT, [facility], 157, cm, 07/01/20 14:53:00 EST, Height, 118, kg, 01/14/20 11:52:00 EDT, Dry Weight Start Date: 12/28/20 Status: OrderedOndansetron = 8 mg, 2 times a day, prn, 0 Refills, Maintenance, 02/22/18 10:55:56 EDT Start Date: 02/22/18 Status: OrderedPen [place], 31 G x 5 mm BD Ultra [...] 9:55:00 EDT, Aerosol, Route to Pharmacy Electronically, [id number], [facility],... Start Date: 06/05/20 Stop Date: 12/02/20 [...] 06/18/21 14:49:00 EST, Route to Pharmacy Electronically, [facility], 157, cm, 07/01/20 14:53:00 EST, Height, 118, kg, 01/14/20 11... Start Date: 06/18/21 Status: OrderedSpiriva HandiHaler 18 mcg inhalation capsule 1 capsule = 18 mcg, Inhalation, Daily, j44.9, # 30 capsule, 5 Refills, Maintenance, 06/18/21 14:49:00 EST, [facility], Asthma J45.90, 157, cm, 07/01/20 14:53:00 [...] 14:48:00 EST, Aerosol, Route to Pharmacy Electronically, [id number]... Start Date: 06/18/21 Status: OrderedtraMADol 50 mg [...]
--- OUTSIDE RECORDS SUMMARY | 2022-05-28 20:47 | XMS_ITS | Continuity of Care Document ---
:1965 Author Organization [facility] Address [address] [place] [id number]- Care Team Providers Name Role Phone Dee Valenzuela MD Primary Care Physician Encounter [facility] Date(s): 12/24/19 - 12/31/19 [facility] [address] [place] [id number]- [facility] Encounter Diagnosis Severe persistent asthma (Discharge Diagnosis) - 12/24/19 Eosinophilic asthma (Discharge Diagnosis) - 12/24/19 JENNIFER on CPAP (Discharge Diagnosis) - 12/24/19 Attending Physician: Johnathon Lui MD Referring Physician: Dee Valenzuela MD Allergies, [...] Breath, # 180 mL, 11 Refills, Maintenance, 06/11/19 9:55:12 EST, Inhalation Solution Start Date: 06/11/19 Stop Date: 06/05/20 Status: OrderedAlbuterol 90 mcg Inhaler 2, puffs, [...] Maintenance, 10/09/17 9:02:55 Start Date: 10/09/17 Status: OrderedCVS Glucose Bits CVS Glucose Bits, [...] 16 Gm, 0 Refills, Maintenance, 10/09/17 9:03:12, [place] Start Date: 10/09/17 Status: OrderedFolic Acid By [...] 0.3 cc 31 G x 8 mm (516in) See Instructions, # 100 each, Refills 3, Tot. Refills 3, Maintenance, Up to 4 injections a day., 08/02/17 11:30:49, E11.9, Compound Start Date: 08/02/17 Stop Date: 07/28/18 Status: OrderedInsulin Syringe, BD Ultra-Fine 0.5 cc 31 G x 8 mm (516in) See Instructions, # 150 each, Refills 5, [...] Status: OrderedMultivitamin 1 tablet, By Mouth, Daily, 0 Refills, Maintenance Start Date: 04/20/12 Status: Orderednitroglycerin 0.4 mg sublingual tablet 1 tablet = 0.4 mg, Sublingual, Every 5 minutes, PRN for chest pain, # 100 tablet, 0 Refills, Maintenance, 08/26/15 18:01:58, Tablet Start Date: 08/26/15 Status: OrderedOndansetron = 8 mg, 2 times a day, prn, 0 Refills, Maintenance, 02/22/18 10:55:56 EDT Start Date: 02/22/18 Status: OrderedPen [place], 31 G x 5 mm BD Ultra [...] with spacer chamber, # 1 each, Refills 11, Tot. Refills 11, Maintenance, 06/11/19 9:55:13 EST, Aerosol, Route to Pharmacy Electronically, [id number], [facility]... Start Date: 06/11/19 Stop Date: 06/05/20 Status: OrderedPromethazine = 25 mg, By Mouth, [...] in PM, J45.90, # 30 tablet, Refills 11, Tot. Refills 11, Maintenance, 06/11/19 9:56:28 EST, Route to Pharmacy Electronically, [id number], [facility] [place] Start Date: 06/11/19 Stop Date: 06/05/20 Status: OrderedSpiriva HandiHaler 18 mcg inhalation capsule 1 capsule = 18 mcg, Inhalation, Daily, # 30 capsule, 11 Refills, Maintenance, 06/11/19 9:55:11 EST, Asthma J45.90 Start Date: 06/11/19 Stop Date: 06/05/20 Status: Orderedsulindac 200 mg oral tablet 1 tablet = 200 mg, By Mouth, 2 times a day, # 60 tablet, 0 Refills, Maintenance, 03/13/18 12:40:15 EDT, Tablet Start Date: 03/13/18 Status: OrderedSymbicort 160mcg/4.5mcg Inhaler 2, puffs, Inhalation, 2 times a day, in the morning and the evening use with spacer chamber, # 1 each, Refills 11, Tot. Refills 11, Maintenance, 06/11/19 9:55:14 EST, Aerosol, Route to Pharmacy Electronically, [id number], [facility]... Start Date: 06/11/19 Stop Date: 06/05/20 Status: OrderedtraMADol 50 mg oral tablet 1 [...] Severe persistent asthma(Confirmed) Active Fibroid uterus(Confirmed) Active Diagnosis Diagnosis Type Effective Dates Health Clinical Infor [facility] Status Service Severe persistent Discharge 12/24/19 asthma Diagnosis Eosinophilic asthma Discharge 12/24/19 Diagnosis JENNIFER on CPAP Discharge 12/24/19 Diagnosis Vital Signs Most recent to oldest [Reference Range]: 1 Height 159 cm (12/23/19 10:43 AM) Weight 118.18 kg (12/23/19 10:43 AM) Body Mass Index [18.5-24.99] 46.75 *>HHI* (12/23/19 10:43 AM) Weight Obtained Via Patient/family stated (12/23/19 10:43 AM) Social History Social History Type Response Smoking Status Never smoker; Tobacco user i n household: No entered on: 03/22/16 Sex
--- OUTSIDE RECORDS SUMMARY | 2022-05-28 20:48 | XMS_ITS | Continuity of Care Document ---
:1965 Author Organization [facility] Address [address] [facility] [address] [place] [address]- Care Team Providers Name Role Phone Bianca BAUTISTA, Dee Primary Care Physician [place] [facility] [place] - 08/05/20 [facility] [address] [place] [id number] Attending Physician: Kishor Brooke Admitting Physician: Kishor Brooke Referring Physician: AdmtrKishor Allergies, Adverse Reactions, Alerts Substance Reaction Severity [...] Refills, Maintenance, 07/06/20 9:14:00 EST, Inhalation Solution, [facility], asthma j45.9, 157, cm,07/01/20 14:53:00 [...] 16 Gm, 0 Refills, Maintenance, 10/09/17 9:03:12, [employer] Start Date: 10/09/17 Status: OrderedFolic Acid By [...] 04/20/12 11:03:10 EDT Start Date: 04/20/12 Status: Orderednitroglycerin 0.4 mg sublingual tablet 1 tablet = 0.4 mg, Sublingual, Every 5 minutes, PRN for chest pain, # 100 tablet, 0 Refills, Maintenance, 08/26/15 18:01:58, Tablet Start Date: 08/26/15 Status: OrderedNucala Prefilled Autoinjector 100 mg/mL subcutaneous solution = 100 mg, Subcutaneous Infusion, Every 28 days, # 1 each, 11 Refills, Maintenance, 01/02/20 11:36:00EDT, [facility], 159, cm, 12/23/19 10:43:00 EDT, Height, 110, kg, 11/20/18 11:12:00EDT, Dry Weight Start Date: 01/02/20 Status: OrderedOndansetron = 8 mg, 2 times a day, prn, 0 Refills, Maintenance, 02/22/18 10:55:56 EDT Start Date: 02/22/18 Status: OrderedPen [place], 31 G x 5 mm BD Ultra [...] 9:55:00 EDT, Aerosol, Route to Pharmacy Electronically, [id number], [facility],... Start Date: 06/05/20 Stop Date: [...] in PM, J45.90, # 30 tablet, Refills 6, Tot. Refills 6, Maintenance, 06/08/20 13:08:00 EST, Route to Pharmacy Electronically, [facility], 159, cm, 01/14/20 11:52:00 EDT, Height, 118, kg, 01/14/20 11... Start Date: 06/08/20 Status: OrderedSpiriva HandiHaler 18 mcg inhalation capsule 1 capsule = 18 mcg, Inhalation, Daily, # 30 capsule, 5 Refills, Maintenance, 06/05/20 9:55:00 EDT, [facility], Asthma J45.90, 159, cm, 01/14/20 11:52:00 EDT, Height, 118, kg, 01/14/20 11:52:00 EDT, Dry Weight Start Date: 06/05/20 Stop Date: 12/02/20 Status: Orderedsulindac 200 mg oral tablet 1 tablet = 200 mg, By Mouth, 2 times a day, # 60 tablet, 0 Refills, Maintenance, 03/13/18 12:40:15 EDT, Tablet Start Date: 03/13/18 Status: OrderedSymbicort 160mcg/4.5mcg Inhaler 2, puffs, Inhalation, 2 times a day, in the morning and the evening use with spacer chamber, # 1 each, Refills 5, Tot. Refills 5, Maintenance, 06/05/20 9:55:00 EDT, Aerosol, Route to Pharmacy Electronically, [id number], [facility]... Start Date: 06/05/20 Stop Date: 12/02/20 Status: OrderedtraMADol 50 mg oral tablet 1 [...]
--- OUTSIDE RECORDS SUMMARY | 2022-05-28 20:48 | XMS_ITS | Continuity of Care Document ---
:1965 Author Organization [facility] Address [address] [place] [phone]- Care Team Providers Name Role Phone Dee Valenzuela MD Primary Care Physician Encounter [facility] [place] Date(s): 08/26/21 - 09/25/21 [facility] [address] [place] [id number] Allergies, Adverse Reactions, Alerts Substance Reaction Severity [...] Refills, Maintenance, 07/06/20 9:14:00 EST, Inhalation Solution, [facility], asthma j45.9, 157, cm,07/01/20 14:53:00 [...] 16 Gm, 0 Refills, Maintenance, 10/09/17 9:03:12, [place] Start Date: 10/09/17 Status: OrderedFolic Acid By [...] 0.3 cc 31 G x 8 mm (5/16in) See Instructions, # 100 each, Refills 3, Tot. Refills 3, Maintenance, Up to 4 injections a day., 08/02/17 11:30:49, E11.9, Compound Start Date: 08/02/17 Stop Date: 07/28/18 Status: OrderedInsulin Syringe, BD Ultra-Fine 0.5 cc 31 G x 8 mm () See Instructions, # 150 each, Refills 5, [...] each, 11 Refills, Maintenance, 12/28/20 17:19:00 EDT, [facility], 157, cm, 07/01/20 14:53:00 EST, Height, 118, kg, 01/14/20 11:52:00 EDT, Dry Weight Start Date: 12/28/20 Status: OrderedOndansetron = 8 mg, 2 times a day, prn, 0 Refills, Maintenance, 02/22/18 10:55:56 EDT Start Date: 02/22/18 Status: OrderedPen [place], 31 G x 5 mm BD Ultra [...] 9:55:00 EDT, Aerosol, Route to Pharmacy Electronically, [id number], [facility],... Start Date: 06/05/20 Stop Date: [...] 06/18/21 14:49:00 EST, Route to Pharmacy Electronically, [facility], 157, cm, 07/01/20 14:53:00 EST, Height, 118, kg, 01/14/20 11... Start Date: 06/18/21 Status: OrderedSpiriva HandiHaler 18 mcg inhalation capsule 1 capsule = 18 mcg, Inhalation, Daily, j44.9, # 30 capsule, 5 Refills, Maintenance, 06/18/21 14:49:00 EST, [facility], Asthma J45.90, 157, cm, 07/01/20 [...] 14:48:00 EST, Aerosol, Route to Pharmacy Electronically, [id number]... Start Date: 06/18/21 Status: OrderedtraMADol 50 mg [...]
--- OUTSIDE RECORDS SUMMARY | 2022-05-28 20:48 | XMS_ITS | Continuity of Care Document ---
:1965 Author Organization [facility] Address [address] [place] [address]- Care Team Providers Name Role Phone Dee Valenzuela MD Primary Care Physician Encounter [facility] [place] Date(s): 12/12/19 - 04/09/[address] [address] [facility] Attending Physician: Johnathon Lui MD Admitting Physician: Johnathon Lui MD Referring Physician: oJhnathon Lui MD Allergies, Adverse Reactions, Alerts Substance Reaction [...] 16 Gm, 0 Refills, Maintenance, 10/09/17 9:03:12, [facility] Start Date: 10/09/17 Status: OrderedFolic Acid By [...] 0.5 cc 31 G x 8 mm (5/16in) See Instructions, # 150 each, Refills 5, [...] 1 each, 11 Refills, Maintenance, 01/02/20 11:36:00EDT, [facility], 159, cm, 12/23/19 10:43:00 EDT, Height, 110, kg, 11/20/18 11:12:00EDT, Dry Weight Start Date: 01/02/20 Status: OrderedOndansetron = 8 mg, 2 times a day, prn, 0 Refills, Maintenance, 02/22/18 10:55:56 EDT Start Date: 02/22/18 Status: OrderedPen [place], 31 G x 5 mm BD Ultra [...] 9:55:13 EST, Aerosol, Route to Pharmacy Electronically, [id number], [facility]... Start Date: 06/11/19 Stop Date: [...] 06/11/19 9:56:28 EST, Route to Pharmacy Electronically, [id number], [facility] [place] Start Date: 06/11/19 [...] 9:55:14 EST, Aerosol, Route to Pharmacy Electronically, [id number], [facility]... Start Date: 06/11/19 Stop Date: 06/05/20 [...]
--- OUTSIDE RECORDS SUMMARY | 2022-05-28 20:48 | XMS_ITS | Continuity of Care Document ---
:1965 Author Organization [facility] Address [address] [place] [address]- Care Team Providers Name Role Phone Dee Valenzuela MD Primary Care Physician [place] [facility] [place] 02/10/20 - 03/11/20 [facility] [address] [place] [address] [facility] Allergies, Adverse Reactions, Alerts Substance Reaction Severity [...] 16 Gm, 0 Refills, Maintenance, 10/09/17 9:03:12, [place] Start Date: 10/09/17 Status: OrderedFolic Acid By [...] Refills, Maintenance, 06/11/19 9:56:50 EST Start Date: 11/5/19 Status: Orderedgabapentin 300 mg oral capsule 1 [...] 1 each, 11 Refills, Maintenance, 01/02/20 11:36:00EDT, [facility], 159, cm, 12/23/19 10:43:00 EDT, Height, 110, kg, 11/20/18 11:12:00EDT, Dry Weight Start Date: 01/02/20 Status: OrderedOndansetron = 8 mg, 2 times a day, prn, 0 Refills, Maintenance, 02/22/18 10:55:56 EDT Start Date: 02/22/18 Status: OrderedPen [place], 31 G x 5 mm BD Ultra [...] 9:55:13 EST, Aerosol, Route to Pharmacy Electronically, [id number], [facility]... Start Date: 06/11/19 Stop Date: [...] 06/11/19 9:56:28 EST, Route to Pharmacy Electronically, [id number], [facility] - Start Date: 06/11/19 Stop Date: 06/05/20 Status: [...] each, Refills 11, Tot. Refills 11, Maintenance, 11/05/19 9:55:14 EST, Aerosol, Route to Pharmacy Electronically, [id number], [facility]... Start Date: 06/11/19 Stop Date: 06/05/20 [...]
--- OUTSIDE RECORDS SUMMARY | 2022-05-28 20:48 | XMS_ITS | Continuity of Care Document ---
:1965 Author Organization [facility] Address [address] [place] [address]- Care Team Providers Name Role Phone Bianca BAUTISTA, Dee Primary Care Physician Encounter [facility] [place] Date(s): 04/07/20 - 08/05/20 [facility] [address] [place] [id number] Attending Physician: Johnathon Lui MD Admitting Physician: Johnathon Lui MD Referring Physician: Dee [...] Refills, Maintenance, 07/06/20 9:14:00 EST, Inhalation Solution, [facility], asthma j45.9, 157, cm,07/01/20 14:53:00 [...] 16 Gm, 0 Refills, Maintenance, 10/09/17 9:03:12, [place] Start Date: 10/09/17 Status: OrderedFolic Acid [...] 1 each, 11 Refills, Maintenance, 01/02/20 11:36:00EDT, [facility], 159, cm, 12/23/19 10:43:00 EDT, Height, 110, kg, 11/20/18 11:12:00EDT, Dry Weight Start Date: 01/02/20 Status: OrderedOndansetron = 8 mg, 2 times a day, prn, 0 Refills, Maintenance, 02/22/18 10:55:56 EDT Start Date: 02/22/18 Status: OrderedPen [place], 31 G x 5 mm BD Ultra Fine III See Instructions, # 200 each, Refills 5, Tot. Refills 5, Maintenance, use to inject insulin 5 times daily. for T2DM/e11, 02/03/16 16:16:46, Compound Start Date: 02/03/16 Stop Date: 08/01/16 Status: OrderedPerphenazine = 4 mg, By Mouth, 2 times a day, 0 Refills, Maintenance, 06/11/19 10:01:12 EST Start Date: 11/5/19 Status: OrderedpredniSONE 10 mg oral tablet 1 [...] 9:55:00 EDT, Aerosol, Route to Pharmacy Electronically, [id number], [facility],... Start Date: 06/05/20 Stop Date: [...] 06/08/20 13:08:00 EST, Route to Pharmacy Electronically, [facility], 159, cm, 01/14/20 11:52:00 EDT, Height, 118, kg, 01/14/20 11... Start Date: 06/08/20 Status: OrderedSpiriva HandiHaler 18 mcg inhalation capsule 1 capsule = 18 mcg, Inhalation, Daily, # 30 capsule, 5 Refills, Maintenance, 06/05/20 9:55:00 EDT, [facility], Asthma J45.90, 159, cm, 01/14/20 [...] 9:55:00 EDT, Aerosol, Route to Pharmacy Electronically, [id number], [facility]... Start Date: 06/05/20 Stop Date: 12/02/20 [...]
--- OUTSIDE RECORDS SUMMARY | 2022-05-28 20:48 | XMS_ITS | Continuity of Care Document ---
:1965 Author Organization [facility] Address [address] [place] [id number]- Care Team Providers Name Role Phone Dee Valenzuela MD Primary Care Physician [place] [facility] [place] 08/[place] - 09/26/21 [facility] [address] [place] [id number] Allergies, Adverse Reactions, Alerts Substance Reaction Severity [...] Refills, Maintenance, 07/06/20 9:14:00 EST, Inhalation Solution, [facility], asthma j45.9, 157, cm,07/01/20 14:53:00 [...] 16 Gm, 0 Refills, Maintenance, 10/09/17 9:03:12, [place] Start Date: 10/09/17 Status: OrderedFolic Acid By [...] each, 11 Refills, Maintenance, 12/28/20 17:19:00 EDT, [facility], 157, cm, 07/01/20 14:53:00 EST, Height, 118, kg, 01/14/20 11:52:00 EDT, Dry Weight Start Date: 12/28/20 Status: OrderedOndansetron = 8 mg, 2 times a day, prn, 0 Refills, Maintenance, 02/22/18 10:55:56 EDT Start Date: 02/22/18 Status: OrderedPen [place], 31 G x 5 mm BD Ultra [...] 9:55:00 EDT, Aerosol, Route to Pharmacy Electronically, [id number], [facility],... Start Date: 06/05/20 Stop Date: [...] 06/18/21 14:49:00 EST, Route to Pharmacy Electronically, [facility], 157, cm, 07/01/20 14:53:00 EST, Height, 118, kg, 01/14/20 11... Start Date: 06/18/21 Status: OrderedSpiriva HandiHaler 18 mcg inhalation capsule 1 capsule = 18 mcg, Inhalation, Daily, j44.9, # 30 capsule, 5 Refills, Maintenance, 06/18/21 14:49:00 EST, [facility], Asthma J45.90, 157, cm, 07/01/20 [...] 14:48:00 EST, Aerosol, Route to Pharmacy Electronically, [id number]... Start Date: 06/18/21 Status: OrderedtraMADol 50 mg [...]
--- OUTSIDE RECORDS SUMMARY | 2022-05-28 20:48 | XMS_ITS | Continuity of Care Document ---
:1965 Author Organization [facility] Address [address] [place] [address]- Care Team Providers Name Role Phone Bianca BAUTISTA, Dee Primary Care Physician Encounter [facility] [place] Date(s): 11/23/21 - 12/23/21 [facility] [address] [place] [id number] Allergies, Adverse Reactions, Alerts Substance [...] 6 hours, PRN Wheezing/Shortness of Breath, # 360 mL, 5 Refills, Maintenance, 11/08/21 11:46:00 EDT, Inhalation Solution, [facility], asthma j45.9, 157, cm,10/18/21 16:38:00 EDT, Height, 118, kg, 01/14/20... Start Date: 11/08/21 Stop Date: 05/07/22 Status: OrderedAlbuterol 90 mcg Inhaler 2, puffs, [...] 16 Gm, 0 Refills, Maintenance, 10/09/17 9:03:12, [employer] Start Date: 10/09/17 Status: OrderedFolic Acid By [...] Maintenance, 03/22/16 15:52:14 Start Date: 03/22/16 Status: OrderedmetFORMIN 500 mg oral tablet, extended [...] Every 28 days, j45.40, # 1 each, 2 Refills, Maintenance, 12/23/21 21:55:00 EDT, [facility], 157, cm, 10/18/21 16:38:00 EDT, Height, 118, kg, 01/14/20 11:52:00 EDT, Dry Weight Start Date: 12/23/21 Status: OrderedOndansetron = 8 mg, 2 times a day, prn, 0 Refills, Maintenance, 02/22/18 10:55:56 EDT Start Date: 02/22/18 Status: OrderedPen [place], 31 G x 5 mm BD Ultra [...] 9:55:00 EDT, Aerosol, Route to Pharmacy Electronically, [id number], [facility],... Start Date: 06/05/20 Stop Date: [...] tablet, Refills 11, Tot. Refills 11, Maintenance, 11/22/21 9:36:00 EDT, Route to Pharmacy Electronically, [facility], 157, cm, 10/18/21 16:38:00 EDT, Height, 118, kg, 01/14/20 1... Start Date: 11/22/21 Status: OrderedSpiriva HandiHaler 18 mcg inhalation capsule 1 capsule = 18 mcg, Inhalation, Daily, j44.9, # 30 capsule, 3 Refills, Maintenance, 11/18/21 12:23:00 EDT, [facility], Asthma J45.90, 157, cm, 10/18/21 16:38:00 EDT, Height, 118, kg, 01/14/20 11:52:00 EDT, Dry Weight Start Date: 11/18/21 Status: Orderedsulindac 200 mg oral tablet 1 tablet = 200 mg, By Mouth, 2 times a day, # 60 tablet, 0 Refills, Maintenance, 03/13/18 12:40:15 EDT, Tablet Start Date: 03/13/18 Status: OrderedSymbicort 160mcg/4.5mcg Inhaler 2, puffs, Inhalation, 2 times a day, in the morning and the evening use with spacer chamber,j44.9, #1 each, Refills 5, Tot. Refills 5, Maintenance, 11/18/21 12:22:00 EDT, Aerosol, Route to Pharmacy Electronically, [id number]... Start Date: 11/18/21 Status: OrderedtraMADol 50 mg oral tablet 1 [...]
--- OUTSIDE RECORDS SUMMARY | 2022-05-28 20:48 | XMS_ITS | Continuity of Care Document ---
:1965 Author Organization [facility] Address [address] [place] [address]- Care Team Providers Name Role Phone Bianca BAUTISTA, Dee Primary Care Physician Encounter [facility] Date(s): 10/28/20 - 11/27/20 [facility] [address] [place] [id number] Allergies, Adverse Reactions, Alerts Substance Reaction [...] Refills, Maintenance, 07/06/20 9:14:00 EST, Inhalation Solution, [facility], asthma j45.9, 157, cm,07/01/20 14:53:00 [...] 16 Gm, 0 Refills, Maintenance, 10/09/17 9:03:12, [place] Start Date: 10/09/17 Status: OrderedFolic Acid By [...] Filter lengthof need lifetime 99 months DX, 10/29/20 11:32... Start Date: 10/29/20 Status: Orderednitroglycerin 0.4 mg sublingual tablet 1 tablet = 0.4 mg, Sublingual, Every 5 minutes, PRN for chest pain, # 100 tablet, 0 Refills, Maintenance, 08/26/15 18:01:58, [place]t Start Date: 08/26/15 Status: OrderedNucala Prefilled Autoinjector 100 mg/mL subcutaneous solution = 100 mg, Subcutaneous Infusion, Every 28 days, # 1 each, 11 Refills, Maintenance, 01/02/20 11:36:00EDT, [facility], 159, cm, 12/23/19 10:43:00 EDT, Height, 110, kg, 11/20/18 11:12:00EDT, Dry Weight Start Date: 01/02/20 Status: OrderedOndansetron = 8 mg, 2 times a day, prn, 0 Refills, Maintenance, 02/22/18 10:55:56 EDT Start Date: 02/22/18 Status: OrderedPen [place], 31 G x 5 mm BD Ultra [...] 9:55:00 EDT, Aerosol, Route to Pharmacy Electronically, [id number], [facility],... Start Date: 06/05/20 Stop Date: [...] 06/08/20 13:08:00 EST, Route to Pharmacy Electronically, [facility], 159, cm, 01/14/20 11:52:00 EDT, Height, 118, kg, 01/14/20 11... Start Date: 06/08/20 Status: OrderedSpiriva HandiHaler 18 mcg inhalation capsule 1 capsule = 18 mcg, Inhalation, Daily, # 30 capsule, 5 Refills, Maintenance, 06/05/20 9:55:00 EDT, [facility], Asthma J45.90, 159, cm, 01/14/20 [...] 9:55:00 EDT, Aerosol, Route to Pharmacy Electronically, [id number], [facility]... Start Date: 06/05/20 Stop Date: 12/02/20 [...]
--- OUTSIDE RECORDS SUMMARY | 2022-05-28 20:48 | XMS_ITS | Continuity of Care Document ---
:1965 Author Organization [facility] Address [address] [place] [address]- Care Team Providers Name Role Phone Dee Valenzuela MD Primary Care Physician [place] [facility] [place]18[place] 07/18/21 [facility] [address] [place] [address] [place] Allergies, Adverse Reactions, Alerts Substance Reaction Severity [...] Refills, Maintenance, 07/06/20 9:14:00 EST, Inhalation Solution, [facility], asthma j45.9, 157, cm,07/01/20 14:53:00 EST, [...] strap [id number] Humidifier Chamber A7035... Start Date: 11/1/21 Status: OrderedCVS Glucose Bits CVS Glucose Bits, [...] 16 Gm, 0 Refills, Maintenance, 10/09/17 9:03:12, [place] Start Date: 10/09/17 Status: OrderedFolic Acid By [...] each, 11 Refills, Maintenance, 12/28/20 17:19:00 EDT, [facility], 157, cm, 07/01/20 14:53:00 EST, Height, 118, kg, 01/14/20 11:52:00 EDT, Dry Weight Start Date: 12/28/20 Status: OrderedOndansetron = 8 mg, 2 times a day, prn, 0 Refills, Maintenance, 02/22/18 10:55:56 EDT Start Date: 02/22/18 Status: OrderedPen [place], 31 G x 5 mm BD Ultra [...] 9:55:00 EDT, Aerosol, Route to Pharmacy Electronically, [id number], [facility],... Start Date: 06/05/20 Stop Date: 12/02/20 [...] 06/18/21 14:49:00 EST, Route to Pharmacy Electronically, [facility], 157, cm, 07/01/20 14:53:00 EST, Height, 118, kg, 01/14/20 11... Start Date: 06/18/21 Status: OrderedSpiriva HandiHaler 18 mcg inhalation capsule 1 capsule = 18 mcg, Inhalation, Daily, j44.9, # 30 capsule, 5 Refills, Maintenance, 06/18/21 14:49:00 EST, [facility], Asthma J45.90, 157, cm, 07/01/20 14:53:00 [...] 14:48:00 EST, Aerosol, Route to Pharmacy Electronically, [id number]... Start Date: 06/18/21 Status: OrderedtraMADol 50 mg [...]
--- OUTSIDE RECORDS SUMMARY | 2022-05-28 20:48 | XMS_ITS | Continuity of Care Document ---
:1965 Author Organization [facility] Address [address] [place] [address]- Care Team Providers Name Role Phone Bianca BAUTISTA, Dee Primary Care Physician [place] [facility] [place]s): 11/12/21 - 12/18/[address] [id number] Attending Physician: Jeri Mcneil MD Admitting Physician: Jeri Mcneil MD Referring Physician: Jeri Mcneil MD Allergies, Adverse Reactions, Alerts Substance Reaction [...] Refills, Maintenance, 11/08/21 11:46:00 EDT, Inhalation Solution, [facility], asthma j45.9, 157, cm,10/18/21 16:38:00 [...] 16 Gm, 0 Refills, Maintenance, 10/09/17 9:03:12, [place] Start Date: 10/09/17 Status: OrderedFolic Acid By [...] 10:55:56 EDT Start Date: 02/22/18 Status: OrderedPen [place], 31 G x 5 mm BD Ultra [...] 9:55:00 EDT, Aerosol, Route to Pharmacy Electronically, [id number], [facility],... Start Date: 06/05/20 Stop [...] 11/22/21 9:36:00 EDT, Route to Pharmacy Electronically, [facility], 157, cm, 10/18/21 16:38:00 EDT, Height, 118, kg, 01/14/20 1... Start Date: 11/22/21 Status: OrderedSpiriva HandiHaler 18 mcg inhalation capsule 1 capsule = 18 mcg, Inhalation, Daily, j44.9, # 30 capsule, 3 Refills, Maintenance, 11/18/21 12:23:00 EDT, [facility], Asthma J45.90, 157, cm, 10/18/21 [...] 12:22:00 EDT, Aerosol, Route to Pharmacy Electronically, [id number]... Start Date: 11/18/21 Status: OrderedtraMADol 50 mg [...]
--- OUTSIDE RECORDS SUMMARY | 2022-05-28 20:48 | XMS_ITS | Continuity of Care Document ---
:1965 Author Organization [facility] Address [address] [place] [address]- Care Team Providers Name Role Phone Dee Valenzuela MD Primary Care Physician Encounter [facility] [place] Date(s): 12/12/19 - 03/12/[address] [address]- [facility] Attending Physician: Johnathon Lui MD Admitting Physician: Johnathon Lui MD Referring Physician: Johnathon Lui MD Allergies, Adverse Reactions, Alerts Substance [...] 16 Gm, 0 Refills, Maintenance, 10/09/17 9:03:12, [place] Start Date: 10/09/17 Status: OrderedFolic Acid By [...] 1 each, 11 Refills, Maintenance, 01/02/20 11:36:00EDT, [facility], 159, cm, 12/23/19 10:43:00 EDT, Height, 110, kg, 11/20/18 11:12:00EDT, Dry Weight Start Date: 01/02/20 Status: OrderedOndansetron = 8 mg, 2 times a day, prn, 0 Refills, Maintenance, 02/22/18 10:55:56 EDT Start Date: 02/22/18 Status: OrderedPen [place], 31 G x 5 mm BD Ultra [...] 9:55:13 EST, Aerosol, Route to Pharmacy Electronically, [id number], [facility] Start Date: 06/11/19 Stop Date: 06/05/20 [...] 06/11/19 9:56:28 EST, Route to Pharmacy Electronically, [id number], [facility] Start Date: 06/11/19 Stop [...] 9:55:14 EST, Aerosol, Route to Pharmacy Electronically, [id number], [facility]... Start Date: 06/11/19 Stop Date: 06/05/20 [...]
--- OUTSIDE RECORDS SUMMARY | 2022-05-28 20:48 | XMS_ITS | Continuity of Care Document ---
:1965 Author Organization [facility] Address [address] [place] [address]- Care Team Providers Name Role Phone Bianca BAUTISTA, Dee Primary Care Physician Encounter [facility] Date(s): 12/07/20 - 01/06/21 [facility] [address] [place] [id number] Allergies, Adverse Reactions, Alerts Substance Reaction Severity [...] Refills, Maintenance, 07/06/20 9:14:00 EST, Inhalation Solution, [facility], asthma j45.9, 157, cm,07/01/20 14:53:00 [...] 16 Gm, 0 Refills, Maintenance, 10/09/17 9:03:12, [place] Start Date: 10/09/17 Status: OrderedFolic Acid By [...] each, 11 Refills, Maintenance, 12/28/20 17:19:00 EDT, [facility], 157, cm, 07/01/20 14:53:00 EST, Height, 118, kg, 01/14/20 11:52:00 EDT, Dry Weight Start Date: 12/28/20 Status: OrderedOndansetron = 8 mg, 2 times a day, prn, 0 Refills, Maintenance, 02/22/18 10:55:56 EDT Start Date: 02/22/18 Status: OrderedPen [place], 31 G x 5 mm BD Ultra [...] 9:55:00 EDT, Aerosol, Route to Pharmacy Electronically, [id number], [facility],... Start Date: 06/05/20 Stop Date: [...] tablet, Refills 6, Tot. Refills 6, Maintenance, 12/07/20 15:33:00 EDT, Route to Pharmacy Electronically, [facility], 157, cm, 07/01/20 14:53:00 EST, Height, 118, kg, 01/14/20 11... Start Date: 12/07/20 Status: OrderedSpiriva HandiHaler 18 mcg inhalation capsule 1 capsule = 18 mcg, Inhalation, Daily, j44.9, # 30 capsule, 6 Refills, Maintenance, 12/07/20 15:34:00 EDT, [facility], Asthma J45.90, 157, cm, 07/01/20 14:53:00 EST, Height, 118, kg, 01/14/20 11:52:00 EDT, Dry Weight Start Date: 12/07/20 Status: Orderedsulindac 200 mg oral tablet 1 tablet = 200 mg, By Mouth, 2 times a day, # 60 tablet, 0 Refills, Maintenance, 03/13/18 12:40:15 EDT, Tablet Start Date: 03/13/18 Status: OrderedSymbicort 160mcg/4.5mcg Inhaler 2, puffs, Inhalation, 2 times a day, in the morning and the evening use with spacer chamber,j44.9, #1 each, Refills 6, Tot. Refills 6, Maintenance, 12/07/20 15:34:00 EDT, Aerosol, Route to Pharmacy Electronically, [id number]... Start Date: 12/07/20 Status: OrderedtraMADol 50 mg oral tablet 1 [...]
--- OUTSIDE RECORDS SUMMARY | 2022-05-28 20:48 | XMS_ITS | Continuity of Care Document ---
:1965 Author Organization [facility] Address [address] [place] [id number]- Care Team Providers Name Role Phone Dee Valenzuela MD Primary Care Physician Encounter [facility] [place] Date(s): 08/31/21 - 09/30/21 [facility] [address] [place] [id number] Allergies, Adverse Reactions, Alerts Substance Reaction [...] 16 Gm, 0 Refills, Maintenance, 10/09/17 9:03:12, [place] Start Date: 10/09/17 Status: OrderedFolic Acid By [...] each, 11 Refills, Maintenance, 12/28/20 17:19:00 EDT, [facility], 157, cm, 07/01/20 14:53:00 EST, Height, 118, kg, 01/14/20 11:52:00 EDT, Dry Weight Start Date: 12/28/20 Status: OrderedOndansetron = 8 mg, 2 times a day, prn, 0 Refills, Maintenance, 02/22/18 10:55:56 EDT Start Date: 02/22/18 Status: OrderedPen [place], 31 G x 5 mm BD Ultra [...] 9:55:00 EDT, Aerosol, Route to Pharmacy Electronically, [id number], [facility],... Start Date: 06/05/20 [...] 14:48:00 EST, Aerosol, Route to Pharmacy Electronically, [id number]... Start Date: 06/18/21 Status: OrderedtraMADol 50 mg [...]
[2022-05-28 21:36] LABS: D Dimer High Sensitivity < 150 NG/ML
[2022-05-28 21:51] LABS: Alanine Aminotransferase 33 U/L (0-31); Albumin Level 3.7 g/dL (3.5-5.0); Alkaline Phosphatase 120 U/L (39-117); Anion Gap 14 (12-20); Aspartate Amino Transferase 26 U/L (5-31); Bilirubin Total 0.2 mg/dL (0.0-1.0); Blood Urea Nitrogen 13 mg/dL (9-16); Calcium 9.2 mg/dL (8.4-10.2); Carbon Dioxide 27 mmol/L (22-29); Chloride 100 mmol/L (96-108); Creatinine Clr Calc Pharmacy 83.9; Estimated Glomerular Filt Rate > 60; Glucose Random 201 mg/dL (60-115); Potassium 4.1 mmol/L (3.3-5.1); Sodium 137 mmol/L (135-145); Total Protein 6.8 g/dL (6.5-8.0)
[2022-05-28] MEDS: Magnesium Hydrox/Alum Hydrox 30 ML ORAL.SUSP PO (22:19)
[2022-05-28] MEDS: PHENobarb/Hyoscy/Atropine/Scop 10 ML ELIXIR PO (22:19)
[2022-05-28] MEDS: Morphine Sulfate 2 MG/ML CARTRIDGE IVPUSH (22:20)
[2022-05-28 22:47] LABS: Lipase 11 U/L (8-78)
[2022-05-28] MEDS: iohexoL 350 MG/ML 100 ML INFUS..BTL IV (23:28)
== END 2022-05-29 01:35 | disposition home or self-care (01) ==
PROVIDERS: Physician Assistant; Emergency Provider Emergency Medicine; PCP Internal Medicine
DX: R10.13 Epigastric pain (principal); K21.9 Gastro-esophageal reflux disease without esophagitis; R11.0 Nausea; E11.9 Type 2 diabetes mellitus without complications; I10 Essential (primary) hypertension; E78.5 Hyperlipidemia, unspecified; E66.9 Obesity, unspecified; Z68.38 Body mass index [BMI] 38.0-38.9, adult; Z79.82 Long term (current) use of aspirin; Z79.899 Other long term (current) drug therapy; Z79.84 Long term (current) use of oral hypoglycemic drugs; Z79.02 Long term (current) use of antithrombotics/antiplatelets
CPT/HCPCS: 36415; 71045; 74177; 80048; 80053; 83690; 84484; 85025; 85379; 93005; 96374; 99284; J2270; Q9967

== ENCOUNTER 2022-06-10 11:22 | Outpatient (REF) | payer MEDICAID, SELFPAY ==
[2022-06-10 11:46] LABS: MANUAL DIFF FLAG NO
[2022-06-10 12:03] LABS: Basophils Absolute Auto 0.1 X10*3/uL (0.0-0.2); Basophils Percent Auto 0.6 % (0-2); Eosinophils Absolute Auto 0.2 X10*3/uL (0.0-0.4); Eosinophils Percent Auto 2.8 % (0-4); Hematocrit 39.7 % (37.0-47.0); Hemoglobin 12.3 g/dl (12.0-16.0); Imm Gran Abs Auto 0.05 X10*3/uL (0.00-0.03); Imm Gran Pct Auto 0.6 % (0.0-0.4); Lymphocytes Absolute Auto 1.9 X10*3/uL (1.2-4.9); Lymphocytes Percent Auto 22.5 % (20-40); Mean Corpuscular Hemoglobin 26.1 pg (27.0-33.0); Mean Corpuscular Volume 84.1 fL (80.0-98.0); Mean Platelet Volume 10.9 fL (9.4-12.3); Monocytes Absolute Auto 0.7 X10*3/uL (0.1-1.2); Neutrophils Absolute Auto 5.4 x10*3/uL (2.0-8.3); Neutrophils Percent Auto 65.5 % (45-73); Platelet Count 244 X10*3/uL (160-400); Red Blood Count 4.72 X10*6/uL (4.20-5.50); Red Cell Distribution Width 13.4 % (11.0-16.0); White Blood Count 8.3 X10*3/uL (4.8-10.8)
[2022-06-10 12:54] LABS: Erythrocyte Sedimentation Rate 32 MM/HR (0-20)
[2022-06-10 13:24] LABS: Alanine Aminotransferase 28 U/L (0-31); Aspartate Amino Transferase 23 U/L (5-31); C Reactive Protein 3.27 mg/dL (< or = 0.50); Creatinine Clr Calc Pharmacy 94.9; Estimated Glomerular Filt Rate > 60
== END 2022-06-10 11:23 | disposition home or self-care (01) ==
LOC: HO.LAB 11:22
PROVIDERS: PCP Internal Medicine; Visit Provider Nurse Practitioner Family
DX: R10.9 Unspecified abdominal pain (principal); R11.2 Nausea with vomiting, unspecified; K58.2 Mixed irritable bowel syndrome; K21.9 Gastro-esophageal reflux disease without esophagitis; R14.0 Abdominal distension (gaseous); K30 Functional dyspepsia
CPT/HCPCS: 36415; 82565; 84450; 84460; 85025; 85652; 86140; 99212

== ENCOUNTER 2022-06-22 20:35 | Emergency (ER) | payer MEDICAID, SELFPAY ==
--- NOTE | ~2022-06-22 | XR_ITS ---
EXAMINATION: XR CHEST CLINICAL INFORMATION: Chest tightness COMPARISON: 05/28/2022 TECHNIQUE: Frontal view of the chest was obtained. FINDINGS: Heart size upper limits of normal. No infiltrates effusions or lung masses are seen. Pulmonary arteries appear mildly prominent raising the question of pulmonary hypertension. XR/XR chest 1V IMPRESSION: No acute intrathoracic disease. Question of pulmonary hypertension.
[2022-06-22 20:49] VITALS: BP 153/99; PULSE 106; RESP 20; TEMP 36.6; O2SAT 94; BMI 49.4
--- NOTE | 2022-06-22 20:51 | ECG_ITS ---
Test Reason : CHEST PAIN Blood Pressure : / mmHG Vent. Rate : 100 BPM Atrial Rate : 100 BPM P-R Int : 134 ms QRS Dur : 080 ms QT Int : 340 ms P-R-T Axes : 055 012 041 degrees QTc Int : 438 ms Normal sinus rhythm Nonspecific ST abnormality Inferior leads Abnormal ECG When compared with ECG of 28-MAY-2022 15:09, No significant change was found Referred By: Generic ED Physician Electronically Signed By:QUINTON BRADSHAW MD
[2022-06-22 21:06] LABS: MANUAL DIFF FLAG NO
[2022-06-22 21:12] LABS: Basophils Absolute Auto 0.1 X10*3/uL (0.0-0.2); Basophils Percent Auto 0.5 % (0-2); Eosinophils Absolute Auto 0.2 X10*3/uL (0.0-0.4); Eosinophils Percent Auto 1.3 % (0-4); Hematocrit 39.4 % (37.0-47.0); Hemoglobin 12.2 g/dl (12.0-16.0); Imm Gran Abs Auto 0.05 X10*3/uL (0.00-0.03); Imm Gran Pct Auto 0.4 % (0.0-0.4); Lymphocytes Absolute Auto 1.8 X10*3/uL (1.2-4.9); Lymphocytes Percent Auto 13.8 % (20-40); Mean Corpuscular Hemoglobin 25.6 pg (27.0-33.0); Mean Corpuscular Volume 82.6 fL (80.0-98.0); Mean Platelet Volume 10.7 fL (9.4-12.3); Monocytes Absolute Auto 1.3 X10*3/uL (0.1-1.2); Monocytes Percent Auto 9.9 % (2-11); Neutrophils Absolute Auto 9.5 x10*3/uL (2.0-8.3); Neutrophils Percent Auto 74.1 % (45-73); Platelet Count 245 X10*3/uL (160-400); Red Blood Count 4.77 X10*6/uL (4.20-5.50); Red Cell Distribution Width 13.8 % (11.0-16.0); White Blood Count 12.8 X10*3/uL (4.8-10.8)
[2022-06-22 21:35] LABS: Anion Gap 15 (12-20); Blood Urea Nitrogen 15 mg/dL (9-16); Calcium 9.3 mg/dL (8.4-10.2); Carbon Dioxide 29 mmol/L (22-29); Chloride 99 mmol/L (96-108); Creatinine Clr Calc Pharmacy 66.8; Estimated Glomerular Filt Rate 47; Glucose Random 182 mg/dL (60-115); Potassium 4.1 mmol/L (3.3-5.1); Sodium 139 mmol/L (135-145)
[2022-06-22 21:45] LABS: Troponin-I High Sensitivity < 3.5 ng/L (<3.5-17.0)
[2022-06-22 22:19] VITALS: BP 123/63; PULSE 95; RESP 18; TEMP 36.7; O2SAT 93
--- NOTE | 2022-06-22 22:52 | ED_ITS ---
HPI - Chest Pain General Chief Complaint: Chest Pain Stated Complaint: COPD/ Dizziness Time Seen by Provider: 06/22/22 22:11 Source: patient, family and retort pre cooker Mode of arrival: ambulatory History of Present Illness HPI narrative: 56-year-old female who presents with complaints of neck itchiness that she has been taking Benadryl for since last night and denies eating any foods that may have precipitated this itchiness and denies any new medications. Although the triage note reports that patient had complained of chest tightness over 2 hours ago and some difficulty breathing patient's primary complaint when I spoke with her was that she is itchy. The has been who is at bedside endorses that patient has rubbed Vicks all over the side of her neck and chest. There are no fever or chills. Related Data Home Medications Medication Instructions Recorded Confirmed albuterol sulfate 2.5 mg/3 mL 1 amp inhalation Q6H PRN wheezing 08/12/21 04/08/22 (0.083 %) solution for nebulization aspirin 81 mg tablet,delayed 81 mg PO QPM 08/12/21 04/08/22 release budesonide-formoterol HFA 160 2 puff PO BID 08/12/21 04/08/22 mcg-4.5 mcg/actuation aerosol inhaler (Symbicort) diltiazem HCl 180 mg 180 mg PO QAM 08/12/21 04/08/22 capsule,extended release 24 hr ferrous sulfate 325 mg (65 mg 1 tab PO BID 08/12/21 04/08/22 iron) tablet (FeroSul) folic acid 1 mg tablet 1 mg PO QAM 08/12/21 04/08/22 furosemide 20 mg tablet 20 mg PO QAM 08/12/21 04/08/22 lamotrigine 200 mg tablet 1 tab PO BEDTIME 08/12/21 04/08/22 lidocaine 5 % topical patch 1 patch topical DAILY 08/12/21 04/08/22 lorazepam 0.5 mg tablet 0.5 mg PO BID PRN anxiety 08/12/21 04/08/22 losartan 25 mg tablet 25 mg PO QAM 08/12/21 04/08/22 metformin 500 mg tablet,extended 1,000 mg PO BIDAC 08/12/21 04/08/22 release 24 hr montelukast 10 mg tablet 10 mg PO QPM 08/12/21 04/08/22 multivitamin 1 tab PO QPM 08/12/21 04/08/22 sertraline 100 mg tablet 100 mg PO QAM 08/12/21 04/08/22 simvastatin 40 mg tablet 1 tab PO BEDTIME 08/12/21 04/08/22 tiotropium bromide 18 mcg capsule 1 cap inhalation DAILY 08/12/21 04/08/22 with inhalation device (Spiriva with HandiHaler) zolpidem 10 mg tablet 10 mg PO BEDTIME PRN Insomnia 08/12/21 04/08/22 cyclobenzaprine 5 mg tablet 5 mg PO Q8H PRN muscle spasm 04/08/22 04/08/22 alcohol swabs (Alcohol Prep Pads) 0 pad topical QID 06/10/22 blood sugar diagnostic (FreeStyle #10 ea 06/10/22 Lite Strips) bupropion HCl 300 mg 24 hr tablet, 300 mg PO QAM 06/10/22 extended release hydrochlorothiazide 12.5 mg tablet 12.5 mg PO Q OTHER DAY 06/10/22 lancets 33 gauge (TRUEplus Lancets) #100 ea 06/10/22 mepolizumab 100 mg/mL subcutaneous mg subcut Q4W 06/10/22 auto-injector (Nucala) mirtazapine 15 mg tablet 15 mg PO BEDTIME 06/10/22 zaleplon 10 mg capsule 10 mg PO BEDTIME PRN insomnia 06/10/22 Previous Rx's Medication Instructions Recorded prednisone 20 mg tablet 40 mg PO DAILY #15 tabs 08/16/21 dexlansoprazole 60 mg 60 mg PO BEDTIME #30 caps 10/21/21 capsule,biphase delayed release (Dexilant) sucralfate 1 gram tablet 1 g PO DAILY #30 tabs 10/21/21 ondansetron 8 mg disintegrating 8 mg PO BID-TID PRN for 02/03/22 tablet nausea/vomiting #90 ea docusate sodium 100 mg capsule 100 mg PO DAILY #30 caps 02/08/22 blfcnz-mjyszozy-jrfixmn 2 cap PO QID #240 caps 02/08/22 24,000-76,000-120,000 unit capsule,delayed rel (Creon) aluminum-mag hydroxide-simethicone 5 ml PO 5XD PRN dyspepsia #355 mL 05/28/22 200 mg-200 mg-20 mg/5 mL oral susp (Maalox Advanced) ondansetron 4 mg disintegrating 4 mg PO Q6H PRN nausea and 05/29/22 tablet vomiting #10 tabs tramadol 50 mg tablet 50 mg PO Q6H #120 tabs 05/30/22 metoclopramide HCl 5 mg tablet 5 mg PO QIDACHS #120 tabs 06/10/22 (Reglan) peg 3350-electrolytes 236 240 ml PO Q10M 1 day #4,000 mL 06/10/22 gram-22.74 gram-6.74 gram-5.86 gram solution (Golytely) dicyclomine 10 mg capsule 10 mg PO QID #120 caps 06/16/22 gabapentin 800 mg tablet 800 mg PO TID #90 tabs 06/16/22 adalimumab 40 mg/0.8 mL 40 mg (0.8 mL) subcut Q2W #2 ea 06/22/22 subcutaneous pen kit (Humira Pen) prednisone 50 mg tablet 50 mg PO DAILY 4 days #4 tabs 06/22/22 Allergies Allergy/AdvReac Type Severity Reaction Status Date / Time No Known Allergies Allergy Verified 06/10/22 11:06 Review of Systems Review of Systems: Pertinent positives and negatives as stated in HPI 10 point review of systems is otherwise negative. [facility] Past Medical History Source: nursing notes reviewed Medical History Anemia Arthritis Asthma Bacterial pneumonia Bleeding hemorrhoid Chronic fatigue COPD (chronic obstructive pulmonary disease) Diabetes GERD (gastroesophageal reflux disease) Graves disease Hepatitis C HTN (hypertension) Hyperlipidemia IBS (irritable bowel syndrome) Lumbar radiculopathy Morbid obesity Multinodular thyroid Osteoarthritis Seropositive rheumatoid arthritis Tubular adenoma of colon Vitamin D deficiency Surgical History History of esophagogastroduodenoscopy (EGD) Hx of appendectomy Hx of cholecystectomy Hx of colonoscopy Family History Family History Mother Diabetes HTN (hypertension) CVD (cardiovascular disease) Heart problem Father Diabetes Brother Autism History of open heart surgery CVD (cardiovascular disease) Diabetes Son Diabetes Maternal Grandmother Diabetes Maternal Grandfather Diabetes Social History Social History Household Members: Spouse, Children and Other Housing: Apartment Are you a primary outdoor emergency care technician to a significant other at home: No Do you presently have visiting nurse or other home services: No Alcohol intake: never Patient Tobacco Use Status: Never used Tobacco Advance Directives: No Advance Directives Information Provided: No service: No Current occupational status: unemployed and disabled Current occupation: rt handed Physical Exam Vital Signs: Vital Signs: Last Vital Signs Temp 98.1 F 06/22/22 22:19 Pulse 95 06/22/22 22:19 Resp 18 06/22/22 22:19 BP 123/63 06/22/22 22:19 Pulse Ox 93 06/22/22 22:19 O2 Del Method 06/22/22 22:19 BMI result Body Mass Index 49.4 VITAL SIGNS: Reviewed. GENERAL: Well developed, well nourished, in no acute distress. HEAD: Normocephalic/atraumatic EYES: PERRLA, EOMI EARS: Ext canals without abnormality, TMs bilaterally are nonbulging and nonerythematous. OROPHARYNX: no oral lesions noted, posterior pharynx clear, no lip/tongue/facial swelling LUNGS: Normal breath sounds. No adventitious sounds or accessory muscle use. SpO2<93> CARDIOVASCULAR: Regular rate and rhythm without noted murmurs ABDOMEN: Soft, non-tender, non-distended with bowel sounds. MUSCULOSKELETAL: No tenderness, deformities, or effusions noted on gross inspection. EXTREMITIES: No cyanosis, clubbing or edema. SKIN: Inspection of the skin reveals questionable eczema rash at neck base NEUROLOGIC: Alert and oriented x 4. Strength and sensation to light touch were grossly intact x 4. Course Course Course Narrative: 56-year-old female with history and clinical presentation most consistent with contact dermatitis symptoms, on clinical exam lungs are clear and patient is not tachypneic and no evidence of wheeze/rhonchi/rales. Patient is oxygenating well on room air and was given prednisone to cover the itchiness and patient has conc erns regarding her difficulty breathing. I reviewed all investigations and though there is a mild leukocytosis this is of uncertain nature as patient is afebrile, denies any abdominal or urinary symptoms and chest x-ray is clear. MDM - Chest Pain Lab Data Result diagrams: 06/22/22 21:00 06/22/22 21:00 Labs: Lab Results 06/22/22 06/22/22 06/22/22 Range/Units 21:00 21:00 21:00 WBC 12.8 H (4.8-10.8) X10*3/uL RBC 4.77 (4.20-5.50) X10*6/uL Hgb 12.2 (12.0-16.0) g/dl Hct 39.4 (37.0-47.0) % MCV 82.6 (80.0-98.0) fL MCH 25.6 L (27.0-33.0) pg MCHC 31.0 (31.0-35.0) g/dl RDW 13.8 (11.0-16.0) % Plt Count 245 (160-400) X10*3/uL MPV 10.7 (9.4-12.3) fL Immature Gran % (Auto) 0.4 (0.0-0.4) % Neut % (Auto) 74.1 H (45-73) % Lymph % (Auto) 13.8 L (20-40) % Alfalfa % (Auto) 9.9 (2-11) % Eos % (Auto) 1.3 (0-4) % Baso % (Auto) 0.5 (0-2) % Lymph # (Auto) 1.8 (1.2-4.9) X10*3/uL Alfalfa # (Auto) 1.3 H (0.1-1.2) X10*3/uL Eos # (Auto) 0.2 (0.0-0.4) X10*3/uL Baso # (Auto) 0.1 (0.0-0.2) X10*3/uL Abs Immat Gran (auto) 0.05 H (0.00-0.03) X10*3/uL Absolute Neuts (auto) 9.5 H (2.0-8.3) x10*3/uL Absolute Nucleated RBC 0.000 (0.0-0.012) X10*3/uL Nucleated RBC % (auto) 0.0 (0.0-0.2) /100WBC Sodium 139 (135-145) mmol/L Potassium 4.1 (3.3-5.1) mmol/L Chloride 99 (96-108) mmol/L Carbon Dioxide 29 (22-29) mmol/L Anion Gap 15 (12-20) BUN 15 (9-16) mg/dL Creatinine 1.20 (0.5-1.4) mg/dL Estim Creat Clear Calc 66.8 Estimated GFR 47 Random Glucose 182 H (60-115) mg/dL Calcium 9.3 (8.4-10.2) mg/dL Troponin I High Sens < 3.5 (<3.5-17.0) ng/L Influenza Type A (PCR) (Negative) Influenza Type B (PCR) (Negative) RSV RNA Qual (PCR) (Negative) SARS-CoV-2 RNA (RT-PCR) (Negative) 06/22/22 Range/Units 22:26 WBC (4.8-10.8) X10*3/uL RBC (4.20-5.50) X10*6/uL Hgb (12.0-16.0) g/dl Hct (37.0-47.0) % MCV (80.0-98.0) fL MCH (27.0-33.0) pg MCHC (31.0-35.0) g/dl RDW (11.0-16.0) % Plt Count (160-400) X10*3/uL MPV (9.4-12.3) fL Immature Gran % (Auto) (0.0-0.4) % Neut % (Auto) (45-73) % Lymph % (Auto) (20-40) % Alfalfa % (Auto) (2-11) % Eos % (Auto) (0-4) % Baso % (Auto) (0-2) % Lymph # (Auto) (1.2-4.9) X10*3/uL Alfalfa # (Auto) (0.1-1.2) X10*3/uL Eos # (Auto) (0.0-0.4) X10*3/uL Baso # (Auto) (0.0-0.2) X10*3/uL Abs Immat Gran (auto) (0.00-0.03) X10*3/uL Absolute Neuts (auto) (2.0-8.3) x10*3/uL Absolute Nucleated RBC (0.0-0.012) X10*3/uL Nucleated RBC % (auto) (0.0-0.2) /100WBC Sodium (135-145) mmol/L Potassium (3.3-5.1) mmol/L Chloride (96-108) mmol/L Carbon Dioxide (22-29) mmol/L Anion Gap (12-20) BUN (9-16) mg/dL Creatinine (0.5-1.4) mg/dL Estim Creat Clear Calc Estimated GFR Random Glucose (60-115) mg/dL Calcium (8.4-10.2) mg/dL Troponin I High Sens (<3.5-17.0) ng/L Influenza Type A (PCR) NEGATIVE (Negative) Influenza Type B (PCR) NEGATIVE (Negative) RSV RNA Qual (PCR) NEGATIVE (Negative) SARS-CoV-2 RNA (RT-PCR) NEGATIVE (Negative) Discharge Plan Discharge Clinical Impression: Contact dermatitis and eczema Patient Disposition: Home, Self-Care Instructions: Contact Dermatitis (ED) Additional Instructions: 1. Reanudar todos los medicamentos caseros seg?n lo prescrito. 2. Recomiende que limpie a fondo [place] evan de todo Vicks, puede usar Benadryl de base t?pica (pregunte a [place] farmac?utico) 3. Llame al consultorio de [place] proveedor de atenci?n primaria por la ma?nilsa y programe marlen kelsie para marlen reevaluaci?n. Regrese a la tj de emergencias si los s?ntomas empeoran. Prescriptions: New prednisone 50 mg tablet 50 mg PO DAILY 4 Days Qty: 4 0RF No Action ondansetron 8 mg tablet,disintegrating 8 mg PO BID-TID PRN (Reason: for nausea/vomiting) Qty: 90 1RF docusate sodium 100 mg capsule 100 mg PO DAILY Qty: 30 6RF Creon 24,000-76,000 -120,000 unit capsule,delayed release(DR/EC) 2 cap PO QID Qty: 240 2RF tramadol 50 mg tablet 50 mg PO Q6H Qty: 120 1RF gabapentin 800 mg tablet 800 mg PO TID Qty: 90 2RF dicyclomine 10 mg capsule 10 mg PO QID Qty: 120 6RF Humira Pen 40 mg/0.8 mL pen injector kit 40 mg subcut Q2W Qty: 2 0RF diltiazem HCl 180 mg capsule,extended release 24hr 180 mg PO QAM sertraline 100 mg tablet 100 mg PO QAM aspirin 81 mg tablet,delayed release (DR/EC) 81 mg PO QPM lorazepam 0.5 mg tablet 0.5 mg PO BID PRN (Reason: anxiety) ferrous sulfate [FeroSul] 325 mg (65 mg iron) tablet 1 tab PO BID lidocaine 5 % adhesive patch,medicated 1 patch topical DAILY losartan 25 mg tablet 25 mg PO QAM folic acid 1 mg tablet 1 mg PO QAM montelukast 10 mg tablet 10 mg PO QPM furosemide 20 mg tablet 20 mg PO QAM zolpidem 10 mg tablet 10 mg PO BEDTIME PRN (Reason: Insomnia) metformin 500 mg tablet extended release 24 hr 1,000 mg PO BIDAC budesonide-formoterol [Symbicort] 160-4.5 mcg/actuation HFA aerosol inhaler 2 puff PO BID multivitamin Tablet 1 tab PO QPM lamotrigine 200 mg tablet 1 tab PO BEDTIME albuterol sulfate 2.5 mg /3 mL (0.083 %) solution for nebulization 1 amp inhalation Q6H PRN (Reason: wheezing) simvastatin 40 mg tablet 1 tab PO BEDTIME Spiriva with HandiHaler 18 mcg capsule, w/inhalation device 1 cap inhalation DAILY prednisone 20 mg Tablet 40 mg PO DAILY Qty: 15 0RF Rx Instructions: 40mg daily for 5 days, then 20mg daily for 5 days alum-mag hydroxide-simeth [Maalox Advanced] 200-200-20 mg/5 mL suspension 5 ml PO 5XD PRN (Reason: dyspepsia) Qty: 355 0RF Rx Instructions: administer between meals and at bedtime ondansetron 4 mg tablet,disintegrating 4 mg PO Q6H PRN (Reason: nausea and vomiting) Qty: 10 0RF Nucala 100 mg/mL auto-injector subcut Q4W hydrochlorothiazide 12.5 mg tablet 12.5 mg PO Q OTHER DAY (DME) lancets [TRUEplus Lancets] 33 gauge misc See Rx Instructions .ROUTE QID Qty: 100 Rx Instructions: As directed bupropion HCl 300 mg tablet extended release 24 hr 300 mg PO QAM mirtazapine 15 mg tablet 15 mg PO BEDTIME alcohol swabs [Alcohol Prep Pads] Pads, Medicated 0 pad topical QID (DME) FreeStyle Lite Strips Strip See Rx Instructions .ROUTE QID Qty: 10 Rx Instructions: As directed zaleplon 10 mg capsule 10 mg PO BEDTIME PRN (Reason: insomnia) peg 3350-electrolytes [Golytely] 236-22.74-6.74 -5.86 gram recon soln 240 ml PO Q10M 1 Days Qty: 4000 0RF Rx Instructions: until fecal effluent is clear; do not exceed a total volume of 2,000 mL metoclopramide HCl [Reglan] 5 mg tablet 5 mg PO QIDACHS Qty: 120 3RF sucralfate 1 gram tablet 1 g PO DAILY Qty: 30 6RF dexlansoprazole [Dexilant] 60 mg capsule,biphase delayed releas 60 mg PO BEDTIME Qty: 30 6RF cyclobenzaprine 5 mg tablet 5 mg PO Q8H PRN (Reason: muscle spasm) Print Language: French
[2022-06-22 23:08] LABS: Influenza A PCR NEGATIVE (Negative); Influenza B PCR NEGATIVE (Negative); Resp Syncy Virus RNA Qual PCR NEGATIVE (Negative); SARS COV2 PCR INHOUSE NEGATIVE (Negative)
[2022-06-22 23:30] VITALS: BP 127/57; PULSE 88; RESP 16; TEMP 37.1; O2SAT 95
[2022-06-22] MEDS: Acetaminophen 325 MG TABLET 975 MG PO (23:38)
[2022-06-22] MEDS: predniSONE 10 MG TABLET 50 MG PO (23:39)
[2022-06-22 23:47] LABS: VBG Base Excess 4.4 mmol/L; VBG HCO3 29 mmol/L (22-26); VBG pCO2 42 mmHg; VBG pH 7.43 (7.32-7.43); VBG pO2 96 mmHg
[2022-06-22 23:47] LABS: Venous Blood Gas Refer to POC result
== END 2022-06-23 00:06 | disposition home or self-care (01) ==
PROVIDERS: Emergency Provider Student in an Organized Health Care Education/Training Program
DX: L25.9 Unspecified contact dermatitis, unspecified cause (principal); L29.9 Pruritus, unspecified; R06.00 Dyspnea, unspecified; D72.829 Elevated white blood cell count, unspecified; Z20.822 Contact with and (suspected) exposure to COVID-19
CPT/HCPCS: 0241U; 36415; 71045; 80048; 82803; 84484; 85025; 93005; 99284

== ENCOUNTER → 2022-06-24 08:06 | Outpatient (BNVA) | payer MEDICAID, SELFPAY | PROVIDERS: PCP Internal Medicine; Referring Provider Internal Medicine; Visit Provider Nurse Practitioner | DX: K21.9 Gastro-esophageal reflux disease without esophagitis (principal); R11.2 Nausea with vomiting, unspecified; K30 Functional dyspepsia; K58.2 Mixed irritable bowel syndrome; B37.9 Candidiasis, unspecified | CPT/HCPCS: 99212 ==

== ENCOUNTER → 2022-07-22 09:03 | Outpatient (BNVA) | payer MEDICAID, SELFPAY | PROVIDERS: PCP Internal Medicine; Visit Provider Nurse Practitioner | DX: K58.2 Mixed irritable bowel syndrome (principal); K21.9 Gastro-esophageal reflux disease without esophagitis; K30 Functional dyspepsia; R11.2 Nausea with vomiting, unspecified; B37.9 Candidiasis, unspecified; Z79.899 Other long term (current) drug therapy | CPT/HCPCS: 99212 ==

== ENCOUNTER → 2022-08-09 08:15 | Outpatient (BNVA) | payer MEDICAID, SELFPAY | PROVIDERS: PCP Internal Medicine; Visit Provider Nurse Practitioner Family | DX: M05.9 Rheumatoid arthritis with rheumatoid factor, unspecified (principal); M54.2 Cervicalgia; D64.9 Anemia, unspecified; Z51.81 Encounter for therapeutic drug level monitoring | CPT/HCPCS: 80307; 80373; 85652; 86140; 99212 ==

== ENCOUNTER 2022-08-09 09:05 | Outpatient (REF) | payer MEDICAID, SELFPAY ==
[2022-08-09 11:30] LABS: C Reactive Protein 2.33 mg/dL (< or = 0.50)
[2022-08-09 11:42] LABS: Erythrocyte Sedimentation Rate 23 MM/HR (0-20)
[2022-08-09 14:05] LABS: Amphetamine Screen Urine Not Detected (Not Detect); Barbiturates, Urine Not Detected (Not Detect); Benzodiazepines Screen Urine Not Detected (Not Detect); Cannabinoid Screen Urine Not Detected (Not Detect); Cocaine Screen Urine Not Detected (Not Detect); Fentanyl, urine Not Detected (Not Detect); Opiate Screen Urine Not Detected (Not Detect); Phencyclidine Screen Urine Not Detected (Not Detect)
[2022-08-22 09:24] LABS: Desmethyltramadol, Ur >10000
[2022-08-22 09:25] LABS: Tramadol, Ur 1441
== END 2022-08-09 09:06 | disposition home or self-care (01) ==
LOC: HO.10HDL 09:05
PROVIDERS: Visit Provider Nurse Practitioner Family
DX: Z51.81 Encounter for therapeutic drug level monitoring (principal); M05.9 Rheumatoid arthritis with rheumatoid factor, unspecified; D64.9 Anemia, unspecified; M54.2 Cervicalgia; Z79.899 Other long term (current) drug therapy
CPT/HCPCS: 80307; 80373; 85652; 86140

== ENCOUNTER 2022-09-07 11:16 | Outpatient (REF) | payer MEDICAID, SELFPAY ==
--- NOTE | ~2022-09-07 | XR_ITS ---
EXAMINATION: XR ELBOW, LEFT CLINICAL INFORMATION: Fall, trauma, pain COMPARISON: Left elbow radiographs 03/29/2021. TECHNIQUE: Left elbow is imaged in 4 views. FINDINGS: No fracture, dislocation, or elbow capsular effusion. No joint narrowing or erosive change. There is epicondylar spurring, greater on lateral side. XR/XR elbow LT 2V IMPRESSION: 1. No fracture, dislocation, or elbow capsular effusion. 2. Epicondylar spurring, greater lateral side.
== END 2022-09-07 11:17 | disposition home or self-care (01) ==
LOC: HO.XRAY 11:16
PROVIDERS: PCP Internal Medicine; Visit Provider Internal Medicine
DX: M25.522 Pain in left elbow (principal)
CPT/HCPCS: 73070

== ENCOUNTER 2022-09-22 12:54 | Outpatient (REF) | payer MEDICAID, SELFPAY ==
[2022-09-22 13:21] LABS: MANUAL DIFF FLAG NO
[2022-09-22 13:34] LABS: Basophils Absolute Auto 0.1 X10*3/uL (0.0-0.2); Basophils Percent Auto 0.6 % (0-2); Eosinophils Absolute Auto 0.2 X10*3/uL (0.0-0.4); Eosinophils Percent Auto 2.3 % (0-4); Hematocrit 39.8 % (37.0-47.0); Hemoglobin 12.1 g/dl (12.0-16.0); Imm Gran Abs Auto 0.04 X10*3/uL (0.00-0.03); Imm Gran Pct Auto 0.5 % (0.0-0.4); Lymphocytes Absolute Auto 1.6 X10*3/uL (1.2-4.9); Mean Corpuscular HGB Conc 30.4 g/dl (31.0-35.0); Mean Corpuscular Hemoglobin 25.6 pg (27.0-33.0); Mean Corpuscular Volume 84.3 fL (80.0-98.0); Mean Platelet Volume 10.9 fL (9.4-12.3); Monocytes Absolute Auto 0.8 X10*3/uL (0.1-1.2); Monocytes Percent Auto 9.8 % (2-11); Neutrophils Absolute Auto 5.1 x10*3/uL (2.0-8.3); Neutrophils Percent Auto 65.8 % (45-73); Platelet Count 235 X10*3/uL (160-400); Red Blood Count 4.72 X10*6/uL (4.20-5.50); Red Cell Distribution Width 13.8 % (11.0-16.0); White Blood Count 7.8 X10*3/uL (4.8-10.8)
[2022-09-22 14:04] LABS: Alanine Aminotransferase 38 U/L (0-31); Aspartate Amino Transferase 29 U/L (5-31); C Reactive Protein 3.51 mg/dL (< or = 0.50); Estimated Glomerular Filt Rate > 60
[2022-09-22 14:19] LABS: Erythrocyte Sedimentation Rate 27 MM/HR (0-20)
== END 2022-09-22 12:55 | disposition home or self-care (01) ==
LOC: HO.10HDL 12:54
PROVIDERS: Visit Provider Nurse Practitioner Family
DX: M05.9 Rheumatoid arthritis with rheumatoid factor, unspecified (principal); Z79.899 Other long term (current) drug therapy
CPT/HCPCS: 36415; 82565; 84450; 84460; 85025; 85652; 86140

== ENCOUNTER → 2022-12-19 09:41 | Day surgery (SDC) | payer MEDICAID, SELFPAY ==
[2022-12-15 15:07] VITALS: BMI 54.5
--- NOTE | 2022-12-19 10:21 | P.HPSUR_ITS ---
Pre-Procedural Eval Section A Date of Service: 12/19/22 The History & Physical has been completed within 30 days and I have reviewed it.: No Section B Chief Complaint: GERD,Nausea with vomiting, abd pain,Gastroparesis Relevant Social History: None Present Medications: see Short Stay Collaborative assessment Medical History: Significant History (Asthma Bacterial pneumonia Bleeding hemorrhoid Chronic fatigue COPD (chronic obstructive pulmonary disease) Diabetes GERD (gastroesophageal reflux disease) Graves disease Hepatitis C HTN (hypertension) Hyperlipidemia IBS (irritable bowel syndrome) Lumbar rad iculopathy Morbid obesity Multinodular thy) History of Previous Operations: Relevant previous surgery/procedure and date(s) (History of esophagogastroduodenoscopy (EGD) Hx of appendectomy Hx of cholecystectomy Hx of colonoscopy) Allergies: Allergies Allergy/AdvReac Type Severity Reaction Status Date / Time No Known Allergies Allergy Verified 12/15/22 14:49 Plan Diagnosis/Plan: Change (Pt came for her GI procedures. Took the prep and admitted to having a full Mother's day meal at 6 pm yesterday. Stool is still brown. Patient was asked to reschedule.) I have reviewed the history and physical and performed a pertinent physical examination on my patient. No changes have occurred unless specified. Time Spent With Patient Time: Total time managing care of this patient today ____ minutes.
[2022-12-19 10:25] VITALS: BMI 53.9
== END ==
PROVIDERS: PCP Internal Medicine; Visit Provider Internal Medicine Gastroenterology
DX: K21.9 Gastro-esophageal reflux disease without esophagitis (principal); Z53.09 Procedure and treatment not carried out because of other contraindication; R11.2 Nausea with vomiting, unspecified; R10.9 Unspecified abdominal pain; K31.84 Gastroparesis

== ENCOUNTER → 2022-12-27 09:18 | Outpatient (BNVA) | payer MEDICAID, SELFPAY | PROVIDERS: PCP Internal Medicine; Visit Provider Nurse Practitioner Family | DX: M05.9 Rheumatoid arthritis with rheumatoid factor, unspecified (principal); M25.561 Pain in right knee; M25.562 Pain in left knee; D64.9 Anemia, unspecified | CPT/HCPCS: 99212 ==

== ENCOUNTER 2022-12-27 10:22 | Outpatient (REF) | payer MEDICAID, SELFPAY ==
[2022-12-27 13:44] LABS: MANUAL DIFF FLAG NO
[2022-12-27 13:53] LABS: Basophils Absolute Auto 0.1 X10*3/uL (0.0-0.2); Basophils Percent Auto 0.8 % (0-2); Eosinophils Absolute Auto 0.2 X10*3/uL (0.0-0.4); Eosinophils Percent Auto 2.1 % (0-4); Hematocrit 39.5 % (37.0-47.0); Hemoglobin 11.9 g/dl (12.0-16.0); Imm Gran Abs Auto 0.02 X10*3/uL (0.00-0.03); Imm Gran Pct Auto 0.2 % (0.0-0.4); Lymphocytes Absolute Auto 1.7 X10*3/uL (1.2-4.9); Lymphocytes Percent Auto 19.8 % (20-40); Mean Corpuscular HGB Conc 30.1 g/dl (31.0-35.0); Mean Corpuscular Hemoglobin 25.6 pg (27.0-33.0); Mean Corpuscular Volume 85.1 fL (80.0-98.0); Mean Platelet Volume 11.6 fL (9.4-12.3); Monocytes Absolute Auto 0.8 X10*3/uL (0.1-1.2); Monocytes Percent Auto 9.7 % (2-11); Neutrophils Absolute Auto 5.7 x10*3/uL (2.0-8.3); Neutrophils Percent Auto 67.4 % (45-73); Platelet Count 254 X10*3/uL (160-400); Red Blood Count 4.64 X10*6/uL (4.20-5.50); Red Cell Distribution Width 13.9 % (11.0-16.0); White Blood Count 8.4 X10*3/uL (4.8-10.8)
[2022-12-27 13:57] LABS: Alanine Aminotransferase 30 U/L (0-31); Aspartate Amino Transferase 22 U/L (5-31); C Reactive Protein 4.41 mg/dL (< or = 0.50); Estimated Glomerular Filt Rate 54
[2022-12-27 15:03] LABS: Erythrocyte Sedimentation Rate 42 MM/HR (0-20)
== END 2022-12-27 10:23 | disposition home or self-care (01) ==
LOC: HO.10HDL 10:22
PROVIDERS: Visit Provider Nurse Practitioner Family
DX: M05.9 Rheumatoid arthritis with rheumatoid factor, unspecified (principal); D64.9 Anemia, unspecified; M25.561 Pain in right knee; M25.562 Pain in left knee; Z79.899 Other long term (current) drug therapy; Z79.84 Long term (current) use of oral hypoglycemic drugs
CPT/HCPCS: 36415; 82565; 84450; 84460; 85025; 85652; 86140

== ENCOUNTER 2023-03-09 08:16 | Outpatient (AMB) | payer MEDICAID, SELFPAY ==
--- NOTE | 2023-03-09 08:23 | A.OFFVIS_ITS ---
Intake Vital Signs 03/09/23 08:36 Height 5 ft 1 in Weight 283 lb 15.286 oz BMI 53.6 BP 129/65 Blood Pressure Location Rt brachial Position Sitting Pulse 86 Intake Visit Reasons: per dr. fabian Intake Note: Patient presents to in oficce visit today in follow up to re discuss EGD/Colonoscopy. CC: Patient states she was not able to tolerate bowel prep and was not able to have procedure done. She reports still having acid reflux, abdominal bloating, and abdominal pain on and off. Patient states she has not been able to get her medication d/t trouble with medicare insurance. a Denies any other GI issues. Take Off Worker Required: Yes Accompanied by: Self / Same As Patient Allergies No Known Allergies Allergy (Verified 03/09/23 08:44) HPI per dr. fabian HPI Details Assessment & Plan (1) Irritable bowel syndrome with both constipation and diarrhea: ?Comment: More CIC ?Code(s): K58.2 - Mixed irritable bowel syndrome ?Plan: Danish #Live A The she received this Zofran, bisacodyl, and nystatin and with this treatment her symptoms have resolved and she is feeling well.? She is also continuing on the Carafate which I had wanted to stop but since she is moving her bowels well we will rock the boat.? I really think she mostly had a systemic Velia infection that was complicating her treatment plan.? She also continues on Creon. She still has not heard about a colonoscopy/EGD so I read in put the order to the computer, again. At this point will return office visit in 4 months to make sure she at least has a date for her procedures and or to review them at that time.? She is quite agreeable to this. (2) GERD (gastroesophageal reflux disease): ?Code(s): K21.9 - Gastro-esophageal reflux disease without esophagitis ?Qualifiers: ?Esophagitis presence:?without esophagitis? Qualified Code(s):?K21.9 - Gastro-esophageal reflux disease without esophagitis (3) Delayed gastric emptying: ?Code(s): K30 - Functional dyspepsia (4) Nausea and vomiting: ?Code(s): R11.2 - Nausea with vomiting, unspecified (5) Velia albicans infection: ?Code(s): B37.9 - Candidiasis, unspecified ? ? ? Medications: Refilled ondansetron 8 mg? PO BID-TID P RN 90 ea 6RF for n ausea/vomiting ? ? Discontinued ondansetron ?? Dis continued Reason:? Doctor's Order 4 mg? PO Q6H PRN 1 0 tabs 0RF nausea and vomiting ? ? metoclopramide HCl (Reglan) ?? Disco ntinued Reason:? D octor's Order 5 mg? PO QIDACHS 1 20 tabs 3RF K30 - Functional d yspepsia ? Resumed sucralfate 1 g? PO DAILY 30 t abs 6RF K58.2 - Mixed irri table bowel syndro me ? COLONOSCOPY NOT YET SCHEDULED HER OBTAINED= no order in computer BIOPSY CORRESPONDENCE On 02/28/23 @ 08:33 Violet Zacarias Wrote To Amaya Olivas pt to keep ov to discuss the several cancelations and no- show procedures. [facility] Schedulers removed from item. On 02/27/23 @ 13:49 Juliana Fabian Wrote To Amaya Olivas (2) Pt scheduled for an EGD and colon today. Did not show for her appt. Needs to reschedule her procedures Please keep FU appt with Amaya Olivas NP on 03/09/23 Thanks TODAY'S VISIT Danish #Kathryn Live She says she cancelled multiple times because she vomited the prep. She has chronic N/V at her baseline, so she is difficult. She is already on chronic zofran. It appears that Suprep is covered so we will try this. She is on chronic Zofran as I said and we have tried her on Reglan see if she has gastroparesis in the past but she did not tolerate this medication. She continues on chronic Carafate. She is also on Dexilant and dicyclomine along with a stool softener. She used lidocaine patches in the past for her abd pain and she feel sit helped with her N/V. I will try prescribing these but getting them covered is difficult. I explained to her that it usually only covered for post herpetic neuralgia. If it is not covered she may wish to consider purchasing this [id number] since now available. ROV 6 mos and after colonoscopy [facility] Medical History Anemia Arthritis Asthma Bacterial pneumonia Bleeding hemorrhoid Chronic fatigue COPD (chronic obstructive pulmonary disease) Diabetes GERD (gastroesophageal reflux disease) Graves disease Hepatitis C HTN (hypertension) Hyperlipidemia IBS (irritable bowel syndrome) Lumbar radiculopathy Morbid obesity Multinodular thyroid Obesity Osteoarthritis Seropositive rheumatoid arthritis Tubular adenoma of colon Vitamin D deficiency Surgical History History of esophagogastroduodenoscopy (EGD) Hx of appendectomy Hx of cholecystectomy Hx of colonoscopy Family History Mother Diabetes HTN (hypertension) CVD (cardiovascular disease) Heart problem Father Diabetes Brother Autism History of open heart surgery CVD (cardiovascular disease) Diabetes Son Diabetes Maternal Grandmother Diabetes Maternal Grandfather Diabetes Social History Household Members: Spouse, Children and Other Housing: Apartment Are you a primary medication care manager to a significant other at home: No Do you presently have visiting nurse or other home services: No Alcohol intake: never Patient Tobacco Use Status: Never used Tobacco service: No Current occupational status: unemployed and disabled Current occupation: rt handed Review of Systems Const Denies fatigue, Denies fever(s), Denies night sweats, Denies poor appetite and Denies weight loss ENT Reports Normal hearing present, Denies dental pain, Denies dysphagia, Denies hearing loss, Denies mouth pain, Denies odynophagia, Denies throat swelling, Denies tongue swelling and Reports other (Dentition adequate) Card Reports no additional complaints Resp Reports no additional complaints GI Reports abdominal pain, Denies melena, Reports bloating, Denies hematochezia, Reports constipation, Denies GI cramping, Denies dysphagia, Denies excessive flatus, Denies early satiety, Reports heartburn, Reports diarrhea, Reports nausea, Denies odynophagia, Reports vomiting and Denies hematemesis Skin/Breast Denies pruritus, Denies lesions, Denies rash and Denies jaundice Neuro Reports Normal hearing present and Denies Abnormal speech present Endo Denies fatigue Aller/Immun Denies throat swelling and Denies tongue swelling Physical Exam Vital Signs: Last Vital Signs Pulse 86 03/09/23 08:36 BP 129/65 03/09/23 08:36 BMI result Body Mass Index 53.6 Const General: cooperative, no acute distress, well developed and well groomed Nutritional Appearance: well nourished and obese morbidly obese Orientation/consciousness: oriented to person, oriented to place and oriented to time Limitations: language barrier HEENT Head: Yes normocephalic and Yes atraumatic Eyes General: appearance normal, both eyes and all related structures Pupils: Equal, round and reactive pupils present Neck Neck: Yes normal visual inspection and Yes no lymphadenopathy Thyroid: Thyroid normal Resp Effort & Inspection: normal respiratory effort and able to speak in complete sentences Auscultation: clear to auscultation bilaterally Cardio Rate: regular rate Rhythm: regular rhythm Heart sounds: Normal, physiologic split S2 sound present Peripheral pulses: radial pulses present and posterior tibial pulses present GI Inspection: No distended, Yes Abdominal panniculus present and Yes obesity Palpation (GI): Soft to palpation, nontender, no guarding, not rigid and No hepatosplenomegaly present Percussion: Yes normal to percussion Auscultation: normal bowel sounds Rectal Exam - Female: deferred Skin General skin exam: no rashes or lesions noted, turgor normal, skin not dry, no jaundice, No spider nevi and no striae Rashes: no rashes Nails: normal Neuro General: oriented to person, oriented to place and oriented to time Cranial nerves: Yes Equal, round and reactive pupils present and Yes Normal hearing present Speech: No Abnormal speech present Extrem General: Yes normal to inspection, No clubbing, No cyanosis and No edema Psych Appearance: grossly normal and well kempt Mental Status: mental status grossly normal Speech and movement: Normal speech and movement present Affect: normal affect Attitude: cooperative Thought process: not confabulating and Impoverished thought process present Thought content: Normal thought content present Insight: Limited insight present (Psych) Judgement: Limited judgement present (Psych) Assessment & Plan Assessment & Plan (1) Irritable bowel syndrome with both constipation and diarrhea: Comment: More CIC Code(s): K58.2 - Mixed irritable bowel syndrome Plan: Danish #Kathryn Live She says she cancelled multiple times because she vomited the prep. She has chronic N/V at her baseline, so she is difficult. She is already on chronic zofran. It appears that Suprep is covered so we will try this. She is on chronic Zofran as I said and we have tried her on Reglan see if she has gastroparesis in the past but she did not tolerate this medication. She continues on chronic Carafate. She is also on Dexilant and dicyclomine along with a stool softener. She used lidocaine patches in the past for her abd pain and she feel sit helped with her N/V. I will try prescribing these but getting them covered is difficult. I explained to her that it usually only covered for post herpetic neuralgia. If it is not covered she may wish to consider purchasing this [id number] since now available. ROV 6 mos and after colonoscopy (2) Delayed gastric emptying: Code(s): K30 - Functional dyspepsia (3) GERD (gastroesophageal reflux disease): Code(s): K21.9 - Gastro-esophageal reflux disease without esophagitis Qualifiers: Esophagitis presence: without esophagitis Qualified Code(s): K21.9 - Gastro-esophageal reflux disease without esophagitis (4) Abdominal bloating: Code(s): R14.0 - Abdominal distension (gaseous) (5) Nausea: Code(s): R11.0 - Nausea (6) Colon cancer screening: Code(s): Z12.11 - Encounter for screening for malignant neoplasm of colon (7) Abdominal pain: Code(s): R10.9 - Unspecified abdominal pain Medications: New sodium,potassium,mag sulfates 17.5-3.13-1.6 gram (Suprep Bowel Prep Kit) 480 mL orally; 354 mL 0RF Z12.11 - Encounter for screening for malignant neoplasm of colon lidocaine 5% leave on most painful area for up to 12 hrs 1 patch topical DAILY 30 ea 3RF R10.9 - Unspecified abdominal pain Refilled dexlansoprazole (Dexilant) 60 mg PO BEDTIME 90 days 90 caps 1RF dicyclomine 10 mg PO QID 120 ea 6RF docusate sodium 100 mg PO DAILY 30 caps 6RF sbpypp-jymohqmm-vywlbmr 24,000-76,000 -120,000 unit (Creon) 2 caps PO QID 240 caps 6RF sucralfate 1 g PO DAILY 30 tabs 6RF K58.2 - Mixed irritable bowel syndrome Discontinued peg 3350-electrolytes 236-22.74-6.74 -5.86 gram per [facility] GI office -until fecal effluent is clear Discontinued Reason: Doctor's Order 240 mL PO Q10M 4,000 mL 0RF Coding Level of Care Code Est Pt Level 3 (33879) Diagnoses Irritable bowel syndrome with both constipation and diarrhea K58.2 Delayed gastric emptying K30 GERD (gastroesophageal reflux disease) K21.9 Esophagitis presence: without esophagitis Abdominal bloating R14.0 Nausea R11.0 Colon cancer screening Z12.11 Abdominal pain R10.9
[2023-03-09 08:36] VITALS: BP 129/65; PULSE 86; BMI 53.6
== END 2023-03-09 09:08 | disposition home or self-care (01) ==
PROVIDERS: PCP Internal Medicine; Visit Provider Nurse Practitioner
DX: K58.2 Mixed irritable bowel syndrome (principal); K30 Functional dyspepsia; K21.9 Gastro-esophageal reflux disease without esophagitis; R14.0 Abdominal distension (gaseous); R11.0 Nausea; Z12.11 Encounter for screening for malignant neoplasm of colon; R10.9 Unspecified abdominal pain
CPT/HCPCS: 99213

== ENCOUNTER → 2023-03-09 08:16 | Outpatient (BNVA) | payer MEDICARE, MEDICAID, SELFPAY | PROVIDERS: PCP Internal Medicine; Visit Provider Nurse Practitioner | DX: Z12.11 Encounter for screening for malignant neoplasm of colon (principal); K58.2 Mixed irritable bowel syndrome; K21.9 Gastro-esophageal reflux disease without esophagitis; K30 Functional dyspepsia; R14.0 Abdominal distension (gaseous); R11.0 Nausea; R10.9 Unspecified abdominal pain | CPT/HCPCS: 99213 ==

== ENCOUNTER 2023-03-31 09:29 | Outpatient (AMB) | payer MEDICARE, MEDICAID, SELFPAY ==
[2023-03-31 09:32] VITALS: BP 124/62; PULSE 91; TEMP 36.3; O2SAT 89; BMI 53.9
--- NOTE | 2023-03-31 09:32 | MHC.OFFVIS ---
Intake Vital Signs 03/31/23 09:32 Height 5 ft 1 in Weight 285 lb 4.45 oz BMI 53.9 BP 124/62 Blood Pressure Location Rt brachial Position Sitting Pulse 91 Pulse Source Pulse Oximeter Temp 97.4 F Temp Source Skin Pulse Oximetry (%) 89 L Intake Visit Reasons: rheumatoid arthritis Intake Note: Pt seen today for RA follow up. Reports she has been been without meds for some time due to issues with insurance. Lots of pain in knees, legs, back and hands. She is asking for a prescription for lidocaine patches. Funeral Counselor Required: Yes Funeral Counselor Name: Cheko [phone] Accompanied by: Self / Same As Patient Allergies No Known Allergies Allergy (Verified 03/31/23 09:39) Medication List - Last Reconciled 03/31/23 by Didier Mi MD adalimumab (Humira Pen) 40 mg (0.8 mL) subcut Q2W albuterol sulfate 1 amp inhalation Q6H PRN alcohol swabs (Alcohol Prep Pads) 0 pad topical QID alum-mag hydroxide-simeth 200-200-20 mg/5 mL (Maalox Advanced) 5 mL PO 5XD PRN aspirin 81 mg PO QPM bisacodyl 10 mg (2 x 5 mg) PO BEDTIME 90 days blood sugar diagnostic (FreeStyle Lite Strips) As directed budesonide-formoterol 160-4.5 mcg/actuation (Symbicort) 2 puffs PO BID bupropion HCl 300 mg PO QAM cholecalciferol (vitamin D3) (Vitamin D3) 50 mcg PO DAILY dexlansoprazole (Dexilant) 60 mg PO BEDTIME 90 days dicyclomine 10 mg PO QID diltiazem HCl 180 mg PO QAM docusate sodium 100 mg PO DAILY dulaglutide (Trulicity) 0.75 mg subcut QWEEK ferrous sulfate (FeroSul) 1 tab PO BID folic acid 1 mg PO QAM furosemide 20 mg PO QAM gabapentin 800 mg PO TID hydrochlorothiazide 12.5 mg PO Q OTHER DAY lamotrigine 1 tab PO BEDTIME lancets (TRUEplus Lancets) As directed lidocaine 5% 1 patch topical DAILY lidocaine 5% 1 patch topical DAILY hfxjza-zujgvaqr-sjjndyi 24,000-76,000 -120,000 unit (Creon) 2 caps PO QID lorazepam 0.5 mg PO BID PRN losartan 25 mg PO QAM mepolizumab (Nucala) mg subcut Q4W metformin ER 1,000 mg PO BIDAC mirtazapine 15 mg PO BEDTIME montelukast 10 mg PO QPM multivitamin 1 tab PO QPM nystatin 1 appl topical TID ondansetron 8 mg PO BID-TID PRN sertraline 100 mg PO QAM simvastatin 1 tab PO BEDTIME sodium,potassium,mag sulfates 17.5-3.13-1.6 gram (Suprep Bowel Prep Kit) 480 mL orally; sucralfate 1 g PO DAILY tiotropium bromide (Spiriva with HandiHaler) 1 cap inhalation DAILY tramadol 50 mg PO Q6H PRN zolpidem 10 mg PO BEDTIME PRN HPI HPI Comments History of Present Illness Details 57yoF presents for follow-up of seropositive RA (RF- CCP ++). Last seen in August 2022. Patient was unable to get the Humira for about 6 weeks due to a change in insurance. She just restarted the Humira this month. She continues to have diffuse pain everywhere. She continues to use the tramadol 4 times a day and she also has to use lidocaine patches. Requesting a lidocaine patch refill today per [facility] Medical History (Updated 03/31/23 @ 10:12 by Didier Mi MD) Anemia Arthritis Asthma Bacterial pneumonia Bleeding hemorrhoid Chronic fatigue COPD (chronic obstructive pulmonary disease) Diabetes GERD (gastroesophageal reflux disease) Graves disease Hepatitis C HTN (hypertension) Hyperlipidemia IBS (irritable bowel syndrome) Lumbar radiculopathy Morbid obesity Multinodular thyroid Obesity Osteoarthritis Tubular adenoma of colon Vitamin D deficiency Surgical History History of esophagogastroduodenoscopy (EGD) Hx of appendectomy Hx of cholecystectomy Hx of colonoscopy Family History Mother Diabetes HTN (hypertension) CVD (cardiovascular disease) Heart problem Father Diabetes Brother Autism History of open heart surgery CVD (cardiovascular disease) Diabetes Son Diabetes Maternal Grandmother Diabetes Maternal Grandfather Diabetes Social History Household Members: Spouse, Children and Other Housing: Apartment Are you a primary healthcare project manager to a significant other at home: No Do you presently have visiting nurse or other home services: No Alcohol intake: never Patient Tobacco Use Status: Never used Tobacco service: No Current occupational status: unemployed and disabled Current occupation: rt handed Review of Systems [facility] [place] back pain, Reports arthralgias, Reports joint swelling and Reports stiffness Physical Exam Vital Signs: Last Vital Signs Temp 97.4 F 03/31/23 09:32 Pulse 91 03/31/23 09:32 BP 124/62 03/31/23 09:32 Pulse Ox 89 L 03/31/23 09:32 BMI result Body Mass Index 53.9 Const General: cooperative and comfortable Nutritional Appearance: obese morbidly obese Orientation/consciousness: patient oriented x3 Limitations: no limitations HEENT Head: Yes normocephalic and Yes atraumatic Mouth: moist mucous membranes Resp Effort & Inspection: normal respiratory effort and able to speak in complete sentences Neuro General: patient oriented x3 Extrem Other: Bilateral wrist tenderness to palpation and pain with full flexion extension Bilateral diffuse MCP, PIP, DI P tenderness Heberden's nodes both hands Numerous fibromyalgia tender points Osteoarthritic changes of both feet Assessment & Plan Assessment & Plan (1) Seropositive rheumatoid arthritis: Comment: -ve ++CCP. erosive Methotrexate - 09/2018 -placed on hold 04/2021, discontinued due to anemia. Humira: July 2020-to present Code(s): M05.9 - Rheumatoid arthritis with rheumatoid factor, unspecified Plan: This is a 57-year-old female with seropositive RA returns for follow-up. Patient was unable to get Humira for about 6 weeks due to insurance change. She just recently restarted it. On exam today she has diffusely tender joints as well as osteoarthritic changes and numerous fibromyalgia tender points. Labs have shown persistently elevated inflammatory markers. Continue Humira 40 mg every other week. Re-evaluate in 3 months. Will consider switching to Actemra Labs before next visit in 3 months (2) Medication monitoring encounter: Code(s): Z51.81 - Encounter for therapeutic drug level monitoring Plan: Patient is on numerous psychiatry medications and pain medication. I discussed reducing the tramadol dose to 3 tabs a day. Patient states that the tramadol dose currently isn't enough and she has to use patches to control the pain. We discussed the drug interactions. Patient however has been stable on her current combination of meds. Can continue tramadol 50 mg q.i.d. as needed (3) High risk medication use: Code(s): Z79.899 - Other skilled nursing (current) drug therapy Plan: Patient is on Humira and Nucala. Per patient Nucala started about 2 years ago. Will have to monitor patient closely for infection risk. Patient denies any history of significant infections over the last few years. Will request records from her employee's representative Dr. Pimentel at [facility] Plan I spent 35 minutes reviewing patient's chart, evaluating patient, ordering diagnostic workup, counseling patient and documenting in the chart Orders: Orders Complete Blood Count Auto Diff 3 Months M05.9 - Rheumatoid arthritis with rheumatoid factor, unspecified, Z51.81 - Encounter for therapeutic drug level monitoring Comprehensive Met. Panel 3 Months M05.9 - Rheumatoid arthritis with rheumatoid factor, unspecified, Z51.81 - Encounter for therapeutic drug level monitoring C Reactive Protein 3 Months M05.9 - Rheumatoid arthritis with rheumatoid factor, unspecified, Z51.81 - Encounter for therapeutic drug level monitoring Erythrocyte Sedimentation Rate 3 Months M05.9 - Rheumatoid arthritis with rheumatoid factor, unspecified, Z51.81 - Encounter for therapeutic drug level monitoring Hepatitis A,B,C Profile 3 Months Z11.59 - Encounter for screening for other viral diseases T Spot TB 3 Months Z11.7 - Encounter for testing for latent tuberculosis infection Medications: Refilled lidocaine 5% leave on most painful area for up to 12 hrs 1 patch topical DAILY 30 ea 3RF R10.9 - Unspecified abdominal pain Coding Level of Care Code Est Pt Level 4 (23990) Diagnoses Seropositive rheumatoid arthritis M05.9 Medication monitoring encounter Z51.81 High risk medication use Z79.899
== END 2023-03-31 10:02 | disposition home or self-care (01) ==
PROVIDERS: PCP Internal Medicine; Visit Provider Student in an Organized Health Care Education/Training Program
DX: M05.79 Rheumatoid arthritis with rheumatoid factor of multiple sites without organ or systems involvement (principal); Z51.81 Encounter for therapeutic drug level monitoring; Z79.620 Long term (current) use of immunosuppressive biologic; Z91.141 Patient's other noncompliance with medication regimen due to financial hardship
CPT/HCPCS: 99214

== ENCOUNTER → 2023-03-31 09:29 | Outpatient (BNVA) | payer MEDICARE, MEDICAID, SELFPAY | PROVIDERS: PCP Internal Medicine; Visit Provider Student in an Organized Health Care Education/Training Program | DX: M05.9 Rheumatoid arthritis with rheumatoid factor, unspecified (principal); E66.01 Morbid (severe) obesity due to excess calories; Z68.43 Body mass index [BMI] 50.0-59.9, adult; Z51.81 Encounter for therapeutic drug level monitoring; Z11.59 Encounter for screening for other viral diseases; Z11.7 Encounter for testing for latent tuberculosis infection; Z79.899 Other long term (current) drug therapy | CPT/HCPCS: 99212 ==

== ENCOUNTER 2023-04-18 12:05 | Emergency (ER) | payer OTHER, SELFPAY ==
--- NOTE | ~2023-04-18 | XR_ITS ---
EXAMINATION: XR CHEST CLINICAL INFORMATION: Chest pain COMPARISON: 06/22/2022 TECHNIQUE: Frontal view of the chest was obtained. FINDINGS: Stable prominent christine, right greater than left. Heart size within normal limits. No vascular congestion, consolidations or effusions. Bony structures are intact. XR/XR chest 1V IMPRESSION: No acute cardiopulmonary disease with no interval change.
--- NOTE | ~2023-04-18 | CT_ITS ---
EXAMINATION: CT ABDOMEN AND PELVIS WITH CONTRAST CLINICAL INFORMATION: abdominal pain COMPARISON: 05/28/2022 TECHNIQUE: Multidetector volumetric imaging was performed from the superior aspect of the liver through the pubic symphysis following administration of 85 mL Omnipaque 300 intravenous contrast. Sagittal and coronal reformatted images were obtained on the technologist workstation.. This CT examination was performed using dose optimization techniques as appropriate, variously including the following: *Automated exposure control *Adjustment of mA and/or kV according to patient size (this includes techniques or standardized protocols for targeted exams where dose is matched to indication/reason for exam; i.e. extremities or head) *Use of iterative reconstruction technique DLP: 1188 mGy-cm FINDINGS: LUNG BASES: Bibasilar dependent atelectasis. Old healed left-sided rib fractures. LIVER, GALLBLADDER, AND BILIARY TREE: There is diffuse fatty infiltration of the liver but no suspicious focal hepatic lesions nor biliary ductal dilatation. Calcified granuloma in the medial right lower lobe incidentally noted the gallbladder surgically absent. PANCREAS: Unremarkable. SPLEEN: Unremarkable. ADRENAL GLANDS: Unremarkable. KIDNEYS AND URETERS: The kidneys are normal in size, shape, and attenuation. Stable low-attenuation left renal cysts are again seen similar to the prior study. No further evaluation of these be needed. No hydronephrosis, hydroureter, or calculi seen. No perinephric stranding. BLADDER: Unremarkable. GASTROINTESTINAL TRACT: Scattered colonic diverticulosis but no colonic wall thickening or pericolonic inflammatory change to suggest diverticulitis. The appendix is not clearly defined and may be surgically absent. Visualized small bowel unremarkable. ABDOMINAL WALL: No significant hernia is appreciated. LYMPHOVASCULAR STRUCTURES: No lymphadenopathy. The aorta is unremarkable. PELVIC VISCERA: Unremarkable. OSSEOUS STRUCTURES: Mild degenerative changes in the lower thoracic spine but no acute bony abnormality seen CT/CT abdomen pelvis w IV con IMPRESSION: Chronic appearing changes similar to the 05/28/2022 study. I do not appreciate any acute intra-abdominal process.
[2023-04-18 12:28] VITALS: BP 156/73; PULSE 93; RESP 18; TEMP 37.2; O2SAT 96; BMI 49.6
--- NOTE | 2023-04-18 12:28 | ED_ITS ---
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 Patient complaining of chest pain, shortness of breath, nausea vomiting for last 5 days. She reports that her arms and legs ?feel swollen. ? Denies any history of congestive heart failure Denies any fevers or chills, sick contacts She reports a remote history of cholecystectomy but denies any other abdominal surgeries Patient reports that she tried taking ?Mylanta and something else for heartburn which has not helped my symptoms. ? Her last bowel movement was yesterday and was normal for her She reports that her abdomen feels ?hard and swollen. ? Associated nausea: Yes Related Data Home Medications Medication Instructions Recorded Confirmed albuterol sulfate 2.5 mg/3 mL 1 amp inhalation Q6H PRN wheezing 08/12/21 12/27/22 (0.083 %) solution for nebulization aspirin 81 mg tablet,delayed 81 mg PO QPM 08/12/21 12/27/22 release budesonide-formoterol HFA 160 2 puff PO BID 08/12/21 12/27/22 mcg-4.5 mcg/actuation aerosol inhaler (Symbicort) diltiazem HCl 180 mg 180 mg PO QAM 08/12/21 12/27/22 capsule,extended release 24 hr ferrous sulfate 325 mg (65 mg 1 tab PO BID 08/12/21 12/27/22 iron) tablet (FeroSul) folic acid 1 mg tablet 1 mg PO QAM 08/12/21 12/27/22 furosemide 20 mg tablet 20 mg PO QAM 08/12/21 12/27/22 lamotrigine 200 mg tablet 1 tab PO BEDTIME 08/12/21 12/27/22 lidocaine 5 % topical patch 1 patch topical DAILY 08/12/21 12/27/22 lorazepam 0.5 mg tablet 0.5 mg PO BID PRN anxiety 08/12/21 12/27/22 losartan 25 mg tablet 25 mg PO QAM 08/12/21 12/27/22 metformin 500 mg tablet,extended 1,000 mg PO BIDAC 08/12/21 12/27/22 release 24 hr montelukast 10 mg tablet 10 mg PO QPM 08/12/21 12/27/22 multivitamin 1 tab PO QPM 08/12/21 12/27/22 sertraline 100 mg tablet 100 mg PO QAM 08/12/21 12/27/22 simvastatin 40 mg tablet 1 tab PO BEDTIME 08/12/21 12/27/22 tiotropium bromide 18 mcg capsule 1 cap inhalation DAILY 08/12/21 12/27/22 with inhalation device (Spiriva with HandiHaler) zolpidem 10 mg tablet 10 mg PO BEDTIME PRN Insomnia 08/12/21 12/27/22 alcohol swabs (Alcohol Prep Pads) 0 pad topical QID 06/10/22 12/27/22 blood sugar diagnostic (FreeStyle #10 ea 06/10/22 12/27/22 Lite Strips) bupropion HCl 300 mg 24 hr tablet, 300 mg PO QAM 06/10/22 12/27/22 extended release hydrochlorothiazide 12.5 mg tablet 12.5 mg PO Q OTHER DAY 06/10/22 12/27/22 lancets 33 gauge (TRUEplus Lancets) #100 ea 06/10/22 12/27/22 mepolizumab 100 mg/mL subcutaneous mg subcut Q4W 06/10/22 12/27/22 auto-injector (Nucala) mirtazapine 15 mg tablet 15 mg PO BEDTIME 06/10/22 12/27/22 cholecalciferol (vitamin D3) 50 50 mcg PO DAILY 12/15/22 12/27/22 mcg (2,000 unit) capsule (Vitamin D3) dulaglutide 0.75 mg/0.5 mL 0.75 mg subcut QWEEK 12/15/22 12/27/22 subcutaneous pen injector (Trulicity) Previous Rx's Medication Instructions Recorded nystatin 100,000 unit/gram topical 1 appl topical TID #30 grams 07/12/22 cream bisacodyl 5 mg tablet,delayed 10 mg (2 x 5 mg) PO BEDTIME 90 01/13/23 release days #180 tabs aluminum-mag hydroxide-simethicone 5 ml PO 5XD PRN dyspepsia #355 mL 01/25/23 200 mg-200 mg-20 mg/5 mL oral susp (Maalox Advanced) ondansetron 8 mg disintegrating 8 mg PO BID-TID PRN for 02/17/23 tablet nausea/vomiting #90 ea gabapentin 800 mg tablet 800 mg PO TID #90 tabs 02/24/23 dexlansoprazole 60 mg 60 mg PO BEDTIME 90 days #90 caps 03/09/23 capsule,biphase delayed release (Dexilant) dicyclomine 10 mg capsule 10 mg PO QID #120 ea 03/09/23 docusate sodium 100 mg capsule 100 mg PO DAILY #30 caps 03/09/23 eamdcm-[id number] 2 cap PO QID #240 caps 03/09/23 24,000-76,000-120,000 unit capsule,delayed rel (Creon) sodium,potassium,mag sulfates 17.5 480 ml PO .COMPLEX #354 mL 03/09/23 gram-3.13 gram-1.6 gram oral soln (Suprep Bowel Prep Kit) sucralfate 1 gram tablet 1 g PO DAILY #30 tabs 03/09/23 adalimumab 40 mg/0.8 mL 40 mg (0.8 mL) subcut Q2W #2 ea 03/15/23 subcutaneous pen kit (Humira Pen) tramadol 50 mg tablet 50 mg PO Q6H PRN pain #120 tabs 03/29/23 lidocaine 5 % topical patch 1 patch topical DAILY #30 ea 03/31/23 ondansetron 4 mg disintegrating 4 mg PO Q8H PRN nausea and 04/18/23 tablet vomiting #20 tabs Allergies Allergy/AdvReac Type Severity Reaction Status Date / Time No Known Allergies Allergy Verified 03/31/23 09:39 Review of Systems 2 Constitutional: Constitutional: Denies fever(s) and Denies headache(s) ENT: Denies headache(s) Cardiovascular: Cardiovascular: Reports Abdominal Distension, Reports chest pain and Reports dyspnea Respiratory: Respiratory: Denies cough and Reports dyspnea Gastrointestinal: Gastrointestinal: Reports abdominal pain, Reports bloating, Reports heartburn, Denies diarrhea, Denies loose stools, Reports nausea and Reports vomiting Genitourinary: Genitourinary: Denies difficulty voiding Musculoskeletal: Musculoskeletal: Denies back pain Integumentary/Breasts: Skin/Breast: Denies erythema and Denies wounds Neurologic: Denies headache(s) PMFSH Past Medical History Medical History (Updated 04/18/23 @ 15:54 by Isael Fitzgerald) Obesity Bacterial pneumonia COPD (chronic obstructive pulmonary disease) Arthritis Multinodular thyroid Tubular adenoma of colon Chronic fatigue Asthma Bleeding hemorrhoid IBS (irritable bowel syndrome) Vitamin D deficiency Graves disease Hyperlipidemia HTN (hypertension) Diabetes Lumbar radiculopathy Anemia Osteoarthritis Morbid obesity GERD (gastroesophageal reflux disease) Hepatitis C Surgical History Hx of colonoscopy History of esophagogastroduodenoscopy (EGD) Hx of appendectomy Hx of cholecystectomy Family History Family History Mother Diabetes HTN (hypertension) CVD (cardiovascular disease) Heart problem Father Diabetes Brother Autism History of open heart surgery CVD (cardiovascular disease) Diabetes Son Diabetes Maternal Grandmother Diabetes Maternal Grandfather Diabetes Social History Social History Household Members: Spouse, Children and Other Housing: Apartment Are you a primary career and guidance counselor to a significant other at home: No Do you presently have visiting nurse or other home services: No Alcohol intake: never Patient Tobacco Use Status: Never used Tobacco Smoked in Last 30 Days: No Advance Directives: No service: No Current occupational status: unemployed and disabled Current occupation: rt handed Physical Exam 2 Vital Signs: Vital Signs: Last Vital Signs Temp 97.6 F 04/18/23 19:12 Pulse 91 04/18/23 19:12 Resp 16 04/18/23 19:12 BP 134/80 04/18/23 19:12 Pulse Ox 96 04/18/23 19:12 O2 Del Method Room Air 04/18/23 19:12 BMI result Body Mass Index 49.6 Const: General: healthy appearing, comfortable, no acute distress, alert and awake Nutritional Appearance: well nourished Orientation/consciousness: p atient oriented x3 HEENT: Head: Yes normocephalic and Yes atraumatic Eyes: Eyelids: Yes eyelids normal Conjunctivae: conjunctivae normal S clerae: sclerae normal Corneas: corneas normal Pupils: Equal, round and reactive pupils present EOM: EOMs intact bilaterally Neck: Neck: Yes full ROM Resp: Effort & Inspection: normal respiratory effort, able to speak in complete sentences, no audible wheezes and not labored Auscultation: clear to auscultation bilaterally GI: Other: Patient's abdomen is morbidly obese, soft to palpation. She has subjective tenderness without any rebound or guarding. Palpation (GI): Soft to palpation, not firm, Tenderness to palpation present (GI) in the LLQ, in the RLQ, in the LUQ and in the RUQ, no guarding and not rigid Auscultation: normoactive bowel sounds Skin: General skin exam: no rashes or lesions noted and elasticity normal Neuro: General: patient oriented x3 Cranial nerves: Yes Equal, round and reactive pupils present and Yes Bilaterally intact EOM present Cognition (Neuro): normal cognition Course Course Course Narrative: RME: 57-year-old female with a past medical history of IBS, asthma, delayed gastric emptying, anemia, GERD, rheumatoid arthritis, COPD, diabetes, hepatitis- C, c/o SOB, CP (worse w/emesis), pain in legs/ feel swollen and upper abdomen pain w/nausea and emesis x5 episodes today. admits to PO intake. EKG, labs, UA, CXR, Viral testing ordered Full HPI, ROS and PE to be performed by primary ED provider. Medications Administered Discontinued Medications Generic Name Dose Route Start Last Admin Trade Name Freq PRN Reason Stop Dose Admin Sodium Chloride 1,000 mls @ 999 mls/hr 04/18/23 15:45 04/18/23 18:15 Ns IV 04/18/23 16:45 Infused .Q1H1M RAVEN Infusion Iohexol 100 ml 04/18/23 17:49 04/18/23 17:50 Iohexol 350 Mg/Ml 100 Ml Infus..Btl IV 04/18/23 17:50 85 ml ONCE ONE Administration Ondansetron HCl 4 mg 04/18/23 15:43 04/18/23 17:14 Ondansetron Hcl 4 Mg/2 Ml Vial IVPUSH 04/18/23 15:44 4 mg ONCE ONE Administration Pantoprazole Sodium 40 mg 04/18/23 15:43 04/18/23 17:16 Pantoprazole Sodium 40 Mg/10 Ml Vial IVPUSH 04/18/23 15:44 40 mg ONCE ONE Administration Medical Decision Making Medical Decision Making [facility] Narrative: 57-year-old female with multiple presents for evaluation of multiple complaints including abdominal pain, chest pain, shortness of breath. On exam her abdomen is morbidly obese, possibly slightly distended but difficult to assess due to patient's body habitus. It is not firm by my evaluation there is no guarding on palpation. Clinically her chest pain is most consistent with GERD and she also describes a burning pain has a history of similar. She does not have any objective upper or lower extremity edema and there is no pending. Her chest x- ray is clear, labs are reassuring. Her CO2 is slightly high at 30 which is likely related to obesity hypoventilation or obstructive sleep apnea. Will treat her discomfort with pantoprazole, Zofran IV and a CT scan the abdomen pelvis to evaluate for obstructive pathology. I also added on ESR, CRP the to evaluate for acute IBS flare Differential Diagnosis Differential Diagnoses: The differential diagnosis associated with the presentation includes Abdominal pain Viral syndrome GERD Gastritis Ileus Obstruction IBS Chest pain ACS less likely Lab Data [facility] Lab Attestation statement: I reviewed the patient's lab results. No leukocytosis with a white count of 8.7. Mild anemia with a hemoglobin 11.6 which is consistent the patient's baseline. Normal hematocrit 38.1. No significant left shift. CO2 of 30, glucose of 124, otherwise chemistries completely unremarkable. Normal renal function, no electrolyte abnormalities. Troponin undetectable less than 2.7 04/18/23 12:42 04/18/23 12:42 Labs: Lab Results 04/18/23 Range/Units 12:42 WBC 8.7 (4.8-10.8) X10*3/uL RBC 4.56 (4.20-5.50) X10*6/uL Hgb 11.6 L (12.0-16.0) g/dl Hct 38.1 (37.0-47.0) % MCV 83.6 (80.0-98.0) fL MCH 25.4 L (27.0-33.0) pg MCHC 30.4 L (31.0-35.0) g/dl RDW 14.3 (11.0-16.0) % Plt Count 238 (160-400) X10*3/uL MPV 10.5 (9.4-12.3) fL Immature Gran % (Auto) 0.7 H (0.0-0.4) % Neut % (Auto) 72.3 (45-73) % Lymph % (Auto) 16.2 L (20-40) % [place] % (Auto) 8.2 (2-11) % Eos % (Auto) 2.1 (0-4) % Baso % (Auto) 0.5 (0-2) % Lymph # (Auto) 1.4 (1.2-4.9) X10*3/uL [place] # (Auto) 0.7 (0.1-1.2) X10*3/uL Eos # (Auto) 0.2 (0.0-0.4) X10*3/uL Baso # (Auto) 0.0 (0.0-0.2) X10*3/uL Abs Immat Gran (auto) 0.06 H (0.00-0.03) X10*3/uL Absolute Neuts (auto) 6.3 (2.0-8.3) x10*3/uL Absolute Nucleated RBC 0.000 (0.0-0.012) X10*3/uL Nucleated RBC % (auto) 0.0 (0.0-0.2) /100WBC ESR 28 H (0-20) MM/HR PT 11.3 (11.1-13.3) SEC INR 0.9 (0.9-1.1) Sodium 141 (135-145) mmol/L Potassium 3.8 (3.3-5.1) mmol/L Chloride 102 (96-108) mmol/L Carbon Dioxide 30 H (22-29) mmol/L Anion Gap 13 (12-20) BUN 9 (9-16) mg/dL Creatinine 0.75 (0.5-1.4) mg/dL Estim Creat Clear Calc 110.0 Estimated GFR > 60 Random Glucose 124 H (60-115) mg/dL Calcium 9.4 (8.4-10.2) mg/dL Magnesium 1.9 (1.6-2.6) mg/dL Total Bilirubin 0.3 (0.0-1.0) mg/dL Direct Bilirubin 0.2 (0.0-0.5) mg/dL AST 22 (5-31) U/L ALT 21 (0-31) U/L Alkaline Phosphatase 98 (39-117) U/L Troponin I High Sens < 2.7 (<3.5-17.0) ng/L C-Reactive Protein 2.69 H (< or = 0.50) mg/dL B-Natriuretic Peptide 54 (<100) pg/mL Total Protein 7.0 (6.5-8.0) g/dL Albumin 3.6 (3.5-5.0) g/dL Lipase 9 (8-78) U/L COVID-19 (ANTWON) Negative (Negative) COVID-19 Clin Com See Note S. pyogenes GrpA MASSIMO Negative (Negative) Independent Interpretation I performed an independent interpretation of an: EKG (normal sinus rhythm with a rate of 92 beats per minute. No ischemic changes) Radiology Impression Discussion of test interpretation with radiology: I have reviewed the radiologist's reading. Radiologist Impression: No acute intra-abdominal pathology Discharge Plan Discharge Clinical Impression: Abdominal pain Patient Disposition: Home, Self-Care Instructions: Abdominal Pain (ED) Additional Instructions: Your workup in the emergency department today was reassuring. Your CT scan did not show any evidence of infectious or obstructive pathology Your symptoms may be a combination of a stomach virus and a minor flare of your IBS Continue your home medications Use Zofran as needed for nausea or vomiting Prescriptions: New ondansetron 4 mg tablet,disintegrating 4 mg PO Q8H PRN (Reason: nausea and vomiting) Qty: 20 0RF No Action nystatin 100,000 unit/gram cream 1 appl topical TID Qty: 30 0RF bisacodyl 5 mg tablet,delayed release (DR/EC) 10 mg PO BEDTIME 90 Days Qty: 180 1RF alum-mag hydroxide-simeth [Maalox Advanced] 200-200-20 mg/5 mL suspension 5 ml PO 5XD PRN (Reason: dyspepsia) Qty: 355 0RF Rx Instructions: administer between meals and at bedtime ondansetron 8 mg tablet,disintegrating 8 mg PO BID-TID PRN (Reason: for nausea/vomiting) Qty: 90 6RF gabapentin 800 mg tablet 800 mg PO TID Qty: 90 2RF Humira Pen 40 mg/0.8 mL pen injector kit 40 mg subcut Q2W Qty: 2 1RF tramadol 50 mg tablet 50 mg PO Q6H PRN (Reason: pain) Qty: 120 2RF diltiazem HCl 180 mg capsule,extended release 24hr 180 mg PO QAM sertraline 100 mg tablet 100 mg PO QAM aspirin 81 mg tablet,delayed release (DR/EC) 81 mg PO QPM lorazepam 0.5 mg tablet 0.5 mg PO BID PRN (Reason: anxiety) ferrous sulfate [FeroSul] 325 mg (65 mg iron) tablet 1 tab PO BID lidocaine 5 % adhesive patch,medicated 1 patch topical DAILY losartan 25 mg tablet 25 mg PO QAM folic acid 1 mg tablet 1 mg PO QAM montelukast 10 mg tablet 10 mg PO QPM furosemide 20 mg tablet 20 mg PO QAM zolpidem 10 mg tablet 10 mg PO BEDTIME PRN (Reason: Insomnia) metformin 500 mg tablet extended release 24 hr 1,000 mg PO BIDAC budesonide-formoterol [Symbicort] 160-4.5 mcg/actuation HFA aerosol inhaler 2 puff PO BID multivitamin Tablet 1 tab PO QPM lamotrigine 200 mg tablet 1 tab PO BEDTIME albuterol sulfate 2.5 mg /3 mL (0.083 %) solution for nebulization 1 amp inhalation Q6H PRN (Reason: wheezing) simvastatin 40 mg tablet 1 tab PO BEDTIME Spiriva with HandiHaler 18 mcg capsule, w/inhalation device 1 cap inhalation DAILY cholecalciferol (vitamin D3) [Vitamin D3] 50 mcg (2,000 unit) Capsule 50 mcg PO DAILY Trulicity 0.75 mg/0.5 mL pen injector 0.75 mg subcut QWEEK Nucala 100 mg/mL auto-injector subcut Q4W hydrochlorothiazide 12.5 mg tablet 12.5 mg PO Q OTHER DAY (DME) lancets [TRUEplus Lancets] 33 gauge misc See Rx Instructions .ROUTE QID Qty: 100 Rx Instructions: As directed bupropion HCl 300 mg tablet extended release 24 hr 300 mg PO QAM mirtazapine 15 mg tablet 15 mg PO BEDTIME alcohol swabs [Alcohol Prep Pads] Pads, Medicated 0 pad topical QID (DME) FreeStyle Lite Strips Strip See Rx Instructions .ROUTE QID Qty: 10 Rx Instructions: As directed lidocaine 5 % adhesive patch,medicated 1 patch topical DAILY Qty: 30 3RF Rx Instructions: leave on most painful area for up to 12 hrs sodium,potassium,mag sulfates [Suprep Bowel Prep Kit] 17.5-3.13-1.6 gram recon soln 480 ml PO .COMPLEX Qty: 354 0RF Rx Instructions: 480 mL orally; dexlansoprazole [Dexilant] 60 mg capsule,biphase delayed releas 60 mg PO BEDTIME 90 Days Qty: 90 1RF dicyclomine 10 mg capsule 10 mg PO QID Qty: 120 6RF docusate sodium 100 mg capsule 100 mg PO DAILY Qty: 30 6RF Creon 24,000-76,000 -120,000 unit capsule,delayed release(DR/EC) 2 cap PO QID Qty: 240 6RF sucralfate 1 gram tablet 1 g PO DAILY Qty: 30 6RF Hold Instructions: Doctor's Order
--- NOTE | 2023-04-18 12:29 | ECG_ITS ---
Test Reason : CHEST PAIN Blood Pressure : / mmHG Vent. Rate : 092 BPM Atrial Rate : 092 BPM P-R Int : 148 ms QRS Dur : 082 ms QT Int : 368 ms P-R-T Axes : 052 001 037 degrees QTc Int : 455 ms Normal sinus rhythm Cannot rule out Inferior infarct , age undetermined Abnormal ECG When compared with ECG of 22-JUN-2022 21:13, No significant change was found Referred By: Ale Boles Electronically Signed By:JEANNETTE IVEY
[2023-04-18 12:48] LABS: MANUAL DIFF FLAG NO
[2023-04-18 12:51] LABS: Basophils Percent Auto 0.5 % (0-2); Eosinophils Absolute Auto 0.2 X10*3/uL (0.0-0.4); Eosinophils Percent Auto 2.1 % (0-4); Hematocrit 38.1 % (37.0-47.0); Hemoglobin 11.6 g/dl (12.0-16.0); Imm Gran Abs Auto 0.06 X10*3/uL (0.00-0.03); Imm Gran Pct Auto 0.7 % (0.0-0.4); Lymphocytes Absolute Auto 1.4 X10*3/uL (1.2-4.9); Lymphocytes Percent Auto 16.2 % (20-40); Mean Corpuscular HGB Conc 30.4 g/dl (31.0-35.0); Mean Corpuscular Hemoglobin 25.4 pg (27.0-33.0); Mean Corpuscular Volume 83.6 fL (80.0-98.0); Mean Platelet Volume 10.5 fL (9.4-12.3); Monocytes Absolute Auto 0.7 X10*3/uL (0.1-1.2); Monocytes Percent Auto 8.2 % (2-11); Neutrophils Absolute Auto 6.3 x10*3/uL (2.0-8.3); Neutrophils Percent Auto 72.3 % (45-73); Platelet Count 238 X10*3/uL (160-400); Red Blood Count 4.56 X10*6/uL (4.20-5.50); Red Cell Distribution Width 14.3 % (11.0-16.0); White Blood Count 8.7 X10*3/uL (4.8-10.8)
[2023-04-18 13:00] LABS: INTERNATIONAL NORM RATIO 0.9 (0.9-1.1); Prothrombin Time 11.3 SEC (11.1-13.3)
[2023-04-18 13:01] LABS: IDNOW Serial# 6674DD1D; Strep A Nucleic Acid Negative (Negative)
[2023-04-18 13:03] LABS: COVID-19 Test Negative (Negative); IDNOW Serial# BCCEAD1C
[2023-04-18 13:08] LABS: Alanine Aminotransferase 21 U/L (0-31); Albumin Level 3.6 g/dL (3.5-5.0); Alkaline Phosphatase 98 U/L (39-117); Anion Gap 13 (12-20); Aspartate Amino Transferase 22 U/L (5-31); Bilirubin Direct 0.2 mg/dL (0.0-0.5); Bilirubin Total 0.3 mg/dL (0.0-1.0); Blood Urea Nitrogen 9 mg/dL (9-16); Calcium 9.4 mg/dL (8.4-10.2); Carbon Dioxide 30 mmol/L (22-29); Chloride 102 mmol/L (96-108); Estimated Glomerular Filt Rate > 60; Glucose Random 124 mg/dL (60-115); Lipase 9 U/L (8-78); Magnesium 1.9 mg/dL (1.6-2.6); Potassium 3.8 mmol/L (3.3-5.1); Sodium 141 mmol/L (135-145)
[2023-04-18 13:10] LABS: B Type Natriuretic Peptide 54 pg/mL (<100)
[2023-04-18 13:17] LABS: Troponin-I High Sensitivity < 2.7 ng/L (<3.5-17.0)
[2023-04-18 16:22] LABS: C Reactive Protein 2.69 mg/dL (< or = 0.50)
[2023-04-18 16:50] LABS: Erythrocyte Sedimentation Rate 28 MM/HR (0-20)
[2023-04-18] MEDS: 0.9 % Sodium Chloride 1,000 ML 999 ML IV (17:14)
[2023-04-18] MEDS: ondansetron HCL 4 MG/2 ML VIAL IVPUSH (17:14)
[2023-04-18] MEDS: Pantoprazole Sodium 40 MG/10 ML VIAL IVPUSH (17:16)
[2023-04-18] MEDS: iohexoL 350 MG/ML 100 ML INFUS..BTL IV (17:50)
[2023-04-18 19:12] VITALS: BP 134/80; PULSE 91; RESP 16; TEMP 36.4; O2SAT 96
== END 2023-04-18 19:40 | disposition home or self-care (01) ==
PROVIDERS: Physician Assistant; Emergency Provider Student in an Organized Health Care Education/Training Program; PCP Internal Medicine
DX: R10.9 Unspecified abdominal pain (principal); R06.02 Shortness of breath; Z20.822 Contact with and (suspected) exposure to COVID-19; E11.9 Type 2 diabetes mellitus without complications; I10 Essential (primary) hypertension; E78.5 Hyperlipidemia, unspecified; E66.01 Morbid (severe) obesity due to excess calories; Z68.42 Body mass index [BMI] 45.0-49.9, adult; Z79.82 Long term (current) use of aspirin; Z79.899 Other long term (current) drug therapy; Z79.85 Long-term (current) use of injectable non-insulin antidiabetic drugs
CPT/HCPCS: 36415; 71045; 74177; 80048; 80076; 83690; 83735; 83880; 84484; 85025; 85610; 85652; 86140; 87635; 87651; 93005; 96361; 96374; 96375; 99284; J2405; Q9967

== ENCOUNTER 2023-06-08 10:38 | Outpatient (REF) | payer MEDICARE, MEDICAID, SELFPAY ==
[2023-06-08 13:26] LABS: MANUAL DIFF FLAG NO
[2023-06-08 13:32] LABS: Basophils Absolute Auto 0.1 X10*3/uL (0.0-0.2); Basophils Percent Auto 0.5 % (0-2); Eosinophils Absolute Auto 0.1 X10*3/uL (0.0-0.4); Eosinophils Percent Auto 1.2 % (0-4); Hemoglobin 12.3 g/dl (12.0-16.0); Imm Gran Abs Auto 0.04 X10*3/uL (0.00-0.03); Imm Gran Pct Auto 0.4 % (0.0-0.4); Lymphocytes Absolute Auto 1.5 X10*3/uL (1.2-4.9); Lymphocytes Percent Auto 14.1 % (20-40); Mean Corpuscular HGB Conc 30.8 g/dl (31.0-35.0); Mean Corpuscular Hemoglobin 25.5 pg (27.0-33.0); Mean Platelet Volume 10.9 fL (9.4-12.3); Monocytes Absolute Auto 0.6 X10*3/uL (0.1-1.2); Monocytes Percent Auto 5.3 % (2-11); Neutrophils Absolute Auto 8.2 x10*3/uL (2.0-8.3); Neutrophils Percent Auto 78.5 % (45-73); Platelet Count 291 X10*3/uL (160-400); Red Blood Count 4.82 X10*6/uL (4.20-5.50); Red Cell Distribution Width 14.2 % (11.0-16.0); White Blood Count 10.5 X10*3/uL (4.8-10.8)
[2023-06-08 13:44] LABS: Alanine Aminotransferase 17 U/L (0-31); Alkaline Phosphatase 108 U/L (39-117); Anion Gap 11 (12-20); Aspartate Amino Transferase 17 U/L (5-31); Bilirubin Total 0.2 mg/dL (0.0-1.0); Blood Urea Nitrogen 12 mg/dL (9-16); Calcium 9.8 mg/dL (8.4-10.2); Carbon Dioxide 32 mmol/L (22-29); Chloride 99 mmol/L (96-108); Estimated Glomerular Filt Rate > 60; Glucose Random 204 mg/dL (60-115); Sodium 138 mmol/L (135-145); Total Protein 7.8 g/dL (6.5-8.0)
[2023-06-08 14:04] LABS: HBS Num1 1.74 mIU/mL (0-7.99); HBsAGNum1 0.32 S/CO (0.00-0.99); Hepatitis A Antibody IgM 0.29 Index (0-0.79); Hepatitis B Core Antibody Nonreactive (Nonreactive); Hepatitis B Surface Antigen Negative (Negative); ~HepC Num1 13.35 S/CO (0.00-0.79); ~Hepatitis A Antibody IgM Nonreactive (Nonreactive); ~Hepatitis B Surface Antibody NONREACTIVE (Nonreactive); ~Hepatitis C Antibody Reactive (Nonreactive)
[2023-06-08 14:10] LABS: Erythrocyte Sedimentation Rate 38 MM/HR (0-20)
[2023-06-10 22:54] LABS: TS Negative Control Passed; TS Panel A 0; TS Panel B 0; TS Positive Control Passed; TSpotTB Negative (Negative)
== END 2023-06-08 10:39 | disposition home or self-care (01) ==
LOC: HO.10HDL 10:38
PROVIDERS: Visit Provider Student in an Organized Health Care Education/Training Program
DX: Z11.7 Encounter for testing for latent tuberculosis infection (principal); Z11.59 Encounter for screening for other viral diseases; M05.9 Rheumatoid arthritis with rheumatoid factor, unspecified; Z79.899 Other long term (current) drug therapy; Z72.89 Other problems related to lifestyle
CPT/HCPCS: 36415; 80053; 85025; 85652; 86140; 86481; 86704; 86706; 86709; 86803; 87340

== ENCOUNTER 2023-06-13 09:46 | Outpatient (AMB) | payer MEDICARE, MEDICAID, SELFPAY ==
--- NOTE | 2023-06-13 09:53 | A.OFFVIS_ITS ---
Intake Vital Signs 06/13/23 09:56 Height 5 ft 3 in Weight 279 lb 12.266 oz BMI 49.6 BP 128/76 Blood Pressure Location Rt brachial Position Sitting Pulse 98 Pulse Source Pulse Oximeter Temp 97.7 F Temp Source Skin Pulse Oximetry (%) 96 Intake Visit Reasons: RA Intake Note: Pt last seen 03/31/23, presents today for follow up and test results. Last seen by pulm in August, has upcoming appt 07/05. Continues with Humira, tramadol qid, Nucala. Compliance Intern Required: No Compliance Intern Name: Avril [id number] Accompanied by: Self / Same As Patient Allergies No Known Allergies Allergy (Verified 06/13/23 09:59) Medication List - Last Reconciled 06/13/23 by Didier Mi MD albuterol sulfate 1 amp inhalation Q6H PRN alcohol swabs (Alcohol Prep Pads) 0 pad topical QID alum-mag hydroxide-simeth 200-200-20 mg/5 mL (Maalox Advanced) 5 mL PO 5XD PRN aspirin 81 mg PO QPM bisacodyl 10 mg (2 x 5 mg) PO BEDTIME 90 days blood sugar diagnostic (FreeStyle Lite Strips) As directed budesonide-formoterol 160-4.5 mcg/actuation (Symbicort) 2 puffs PO BID bupropion HCl 300 mg PO QAM cholecalciferol (vitamin D3) (Vitamin D3) 50 mcg PO DAILY dexlansoprazole (Dexilant) 60 mg PO BEDTIME 90 days dicyclomine 10 mg PO QID diltiazem HCl 180 mg PO QAM docusate sodium 100 mg PO DAILY dulaglutide (Trulicity) 0.75 mg subcut QWEEK ferrous sulfate (FeroSul) 1 tab PO BID folic acid 1 mg PO QAM furosemide 20 mg PO QAM gabapentin 800 mg PO TID Humira Pen (adalimumab) 40 mg (0.8 mL) subcut Q2W NS hydrochlorothiazide 12.5 mg PO Q OTHER DAY lamotrigine 1 tab PO BEDTIME lancets (TRUEplus Lancets) As directed lidocaine 5% 1 patch topical DAILY lidocaine 4% (Salonpas (lidocaine)) 1 patch topical DAILY PRN lidocaine 5% 1 patch topical DAILY pslfsd-wikojoiq-huzuaxs 24,000-76,000 -120,000 unit (Creon) 2 caps PO QID lorazepam 0.5 mg PO BID PRN losartan 25 mg PO QAM mepolizumab (Nucala) mg subcut Q4W metformin ER 1,000 mg PO BIDAC mirtazapine 15 mg PO BEDTIME montelukast 10 mg PO QPM multivitamin 1 tab PO QPM nystatin 1 appl topical TID ondansetron 4 mg PO Q8H PRN ondansetron 8 mg PO BID-TID PRN sertraline 100 mg PO QAM simvastatin 1 tab PO BEDTIME sodium,potassium,mag sulfates 17.5-3.13-1.6 gram (Suprep Bowel Prep Kit) 480 mL orally; sucralfate 1 g PO DAILY tiotropium bromide (Spiriva with HandiHaler) 1 cap inhalation DAILY tramadol 50 mg PO Q6H PRN zolpidem 10 mg PO BEDTIME PRN HPI HPI Comments History of Present Illness Details 57yoF presents for follow-up of seroposi tive RA (RF- CCP ++). On Humira 40 mg every other week. She is also on Nucala prescribed by pulmonology. Patient states that she continues to have joint pain and swelling. A few days ago she had an episode of swelling of her left hand. Continues to have pain in her knees and feet. [facility] Medical History Obesity Bacterial pneumonia COPD (chronic obstructive pulmonary disease) Arthritis Multinodular thyroid Tubular adenoma of colon Chronic fatigue Asthma Bleeding hemorrhoid IBS (irritable bowel syndrome) Vitamin D deficiency Graves disease Hyperlipidemia HTN (hypertension) Diabetes Lumbar radiculopathy Anemia Osteoarthritis Morbid obesity GERD (gastroesophageal reflux disease) Hepatitis C Surgical History Hx of colonoscopy History of esophagogastroduodenoscopy (EGD) Hx of appendectomy Hx of cholecystectomy Family History Mother Diabetes HTN (hypertension) CVD (cardiovascular disease) Heart problem Father Diabetes Brother Autism History of open heart surgery CVD (cardiovascular disease) Diabetes Son Diabetes Maternal Grandmother Diabetes Maternal Grandfather Diabetes Social History Household Members: Spouse, Children and Other Housing: Apartment Are you a primary career manager to a significant other at home: No Do you presently have visiting nurse or other home services: No Alcohol intake: never Patient Tobacco Use Status: Never used Tobacco service: No Current occupational status: unemployed and disabled Current occupation: rt handed Review of Systems [facility] [place] Reports back pain, Reports arthralgias, Reports joint swelling and Reports stiffness Physical Exam Vital Signs: Last Vital Signs Temp 97.7 F 06/13/23 09:56 Pulse 98 06/13/23 09:56 BP 128/76 06/13/23 09:56 Pulse Ox 96 06/13/23 09:56 BMI result Body Mass Index 49.6 Const General: cooperative and comfortable Nutritional Appearance: obese morbidly obese Orientation/consciousness: patient oriented x3 Limitations: no limitations HEENT Head: Yes normocephalic and Yes atraumatic Resp Effort & Inspection: normal respiratory effort and able to speak in complete sentences Neuro General: patient oriented x3 Extrem Other: Bilateral wrist tenderness to palpation and pain with full flexion extension Bilateral diffuse MCP, PIP, DIP tenderness Heberden's nodes both hands Numerous fibromyalgia tender points Osteoarthritic changes of both feet Results Reviewed Results Reviewed: Laboratory Tests Assessment & Plan Assessment & Plan (1) Seropositive rheumatoid arthritis: Comment: -ve ++CCP. erosive Methotrexate - 09/2018 -placed on hold 04/2021, discontinued due to anemia. Humira: July 2020-to present Code(s): M05.9 - Rheumatoid arthritis with rheumatoid factor, unspecified Plan: This is a 57-year-old female with seropositive RA returns for follow-up. Her labs have shown persistently elevated inflammatory markers. This is at least partly due to her obesity. On Humira 40 mg every other week. Continues to have multiple swollen and tender joints. Will need to change DMARDs. Discussed risks and benefits of Actemra. Patient agreed to proceed. Will start prior authorization for Actemra Labs before next visit in 3 months (2) Medication monitoring encounter: Code(s): Z51.81 - Encounter for therapeutic drug level monitoring Plan: Patient is on numerous psychiatry medications and pain medication. I discussed reducing the tramadol dose to 3 tabs a day. Patient states that the tramadol dose currently isn't enough and she has to use patches to control the pain. We discussed the drug interactions. Patient however has been stable on her current combination of meds. Can continue tramadol 50 mg q.i.d. as needed (3) High risk medication use: Code(s): Z79.899 - Other assisted (current) drug therapy Plan: Patient is on Humira and Nucala. Per patient Nucala started about 2 years ago. There were no significant infections. Now we are switching to Actemra. We will monitor patient carefully for any signs of infection Plan I spent 30 minutes reviewing patient's chart, evaluating patient, ordering diagnostic workup, counseling patient and documenting in the chart Orders: Orders Complete Blood Count Auto Diff 3 Months M05.9 - Rheumatoid arthritis with rheumatoid factor, unspecified Comprehensive Met. Panel 3 Months M05.9 - Rheumatoid arthritis with rheumatoid factor, unspecified C Reactive Protein 3 Months M05.9 - Rheumatoid arthritis with rheumatoid factor, unspecified Erythrocyte Sedimentation Rate 3 Months M05.9 - Rheumatoid arthritis with rheumatoid factor, unspecified Medications: Refilled tramadol 50 mg PO Q6H PRN 120 tabs 2RF pain M54.5 - Low back pain Coding Level of Care Code Est Pt Level 4 (87004) Diagnoses Seropositive rheumatoid arthritis M05.9 Medication monitoring encounter Z51.81 High risk medication use Z79.899
[2023-06-13 09:56] VITALS: BP 128/76; PULSE 98; TEMP 36.5; O2SAT 96; BMI 49.6
== END 2023-06-13 10:30 | disposition home or self-care (01) ==
PROVIDERS: PCP Internal Medicine; Visit Provider Student in an Organized Health Care Education/Training Program
DX: M05.79 Rheumatoid arthritis with rheumatoid factor of multiple sites without organ or systems involvement (principal); Z51.81 Encounter for therapeutic drug level monitoring; Z79.899 Other long term (current) drug therapy
CPT/HCPCS: 99214

== ENCOUNTER → 2023-06-13 09:46 | Outpatient (BNVA) | payer MEDICARE, MEDICAID, SELFPAY | PROVIDERS: PCP Internal Medicine; Visit Provider Student in an Organized Health Care Education/Training Program | DX: M05.9 Rheumatoid arthritis with rheumatoid factor, unspecified (principal); Z51.81 Encounter for therapeutic drug level monitoring; Z79.899 Other long term (current) drug therapy | CPT/HCPCS: 99212 ==

== ENCOUNTER 2023-08-21 16:42 | Emergency (ER) | payer MEDICARE, MEDICAID, SELFPAY ==
--- NOTE | ~2023-08-21 | XR_ITS ---
EXAMINATION: XR CHEST CLINICAL INFORMATION: Shortness of breath COMPARISON: Previous chest x-rays most recent April 2023 TECHNIQUE: 2 views of the chest were obtained. FINDINGS: The cardiac silhouette does not appear enlarged. Slight prominence of the right pulmonary hilum similar to multiple old chest x-rays. Hilar and mediastinal contours are otherwise unremarkable. The lungs are clear. No pleural effusion or pneumothorax. Old posttraumatic changes to the bilateral ribs. Degenerative changes of the spine. XR/XR chest 2V IMPRESSION: No evidence for acute disease in the chest.
--- NOTE | 2023-08-21 17:32 | ED.GENADULT ---
HPI - General Adult General Chief complaint: Dyspnea Stated complaint: sob,facial pressure Time Seen by Provider: 08/21/23 20:42 Source: patient, RN notes reviewed, old records reviewed and lang interpreter Mode of arrival: ambulatory Limitations: language barrier History of Present Illness HPI narrative: 57-year-old female with past medical history significant for COPD, GERD, obesity, diabetes presents for evaluation of shortness of breath and facial pain. Patient reports her symptoms started on Monday, 3 days ago. She reports that she uses oxygen at home 3 L via nasal cannula related to ?COPD. ? Patient states that because of facial pain and congestion ?it is too painful to use my oxygen. ? Patient also reports headache, body aches Denies any fevers or sick contacts Related Data Home Medications Medication Instructions Recorded Confirmed albuterol sulfate 2.5 mg/3 mL 1 amp inhalation Q6H PRN wheezing 08/12/21 12/27/22 (0.083 %) solution for nebulization aspirin 81 mg tablet,delayed 81 mg PO QPM 08/12/21 12/27/22 release budesonide-formoterol HFA 160 2 puff PO BID 08/12/21 12/27/22 mcg-4.5 mcg/actuation aerosol inhaler (Symbicort) diltiazem HCl 180 mg 180 mg PO QAM 08/12/21 12/27/22 capsule,extended release 24 hr ferrous sulfate 325 mg (65 mg 1 tab PO BID 08/12/21 12/27/22 iron) tablet (FeroSul) folic acid 1 mg tablet 1 mg PO QAM 08/12/21 12/27/22 furosemide 20 mg tablet 20 mg PO QAM 08/12/21 12/27/22 lamotrigine 200 mg tablet 1 tab PO BEDTIME 08/12/21 12/27/22 lidocaine 5 % topical patch 1 patch topical DAILY 08/12/21 12/27/22 lorazepam 0.5 mg tablet 0.5 mg PO BID PRN anxiety 08/12/21 12/27/22 losartan 25 mg tablet 25 mg PO QAM 08/12/21 12/27/22 metformin 500 mg tablet,extended 1,000 mg PO BIDAC 08/12/21 12/27/22 release 24 hr montelukast 10 mg tablet 10 mg PO QPM 08/12/21 12/27/22 multivitamin 1 tab PO QPM 08/12/21 12/27/22 sertraline 100 mg tablet 100 mg PO QAM 08/12/21 12/27/22 simvastatin 40 mg tablet 1 tab PO BEDTIME 08/12/21 12/27/22 tiotropium bromide 18 mcg capsule 1 cap inhalation DAILY 08/12/21 12/27/22 with inhalation device (Spiriva with HandiHaler) zolpidem 10 mg tablet 10 mg PO BEDTIME PRN Insomnia 08/12/21 12/27/22 alcohol swabs (Alcohol Prep Pads) 0 pad topical QID 06/10/22 12/27/22 blood sugar diagnostic (FreeStyle #10 ea 06/10/22 12/27/22 Lite Strips) bupropion HCl 300 mg 24 hr tablet, 300 mg PO QAM 06/10/22 12/27/22 extended release hydrochlorothiazide 12.5 mg tablet 12.5 mg PO Q OTHER DAY 06/10/22 12/27/22 lancets 33 gauge (TRUEplus Lancets) #100 ea 06/10/22 12/27/22 mepolizumab 100 mg/mL subcutaneous mg subcut Q4W 06/10/22 12/27/22 auto-injector (Nucala) mirtazapine 15 mg tablet 15 mg PO BEDTIME 06/10/22 12/27/22 cholecalciferol (vitamin D3) 50 50 mcg PO DAILY 12/15/22 12/27/22 mcg (2,000 unit) capsule (Vitamin D3) dulaglutide 0.75 mg/0.5 mL 0.75 mg subcut QWEEK 12/15/22 12/27/22 subcutaneous pen injector (Trulicity) Previous Rx's Medication Instructions Recorded nystatin 100,000 unit/gram topical 1 appl topical TID #30 grams 07/12/22 cream ondansetron 8 mg disintegrating 8 mg PO BID-TID PRN for 02/17/23 tablet nausea/vomiting #90 ea dexlansoprazole 60 mg 60 mg PO BEDTIME 90 days #90 caps 03/09/23 capsule,biphase delayed release (Dexilant) dicyclomine 10 mg capsule 10 mg PO QID #120 ea 03/09/23 docusate sodium 100 mg capsule 100 mg PO DAILY #30 caps 03/09/23 kcuain-rflvbtbi-qvxgrhv 2 cap PO QID #240 caps 03/09/23 24,000-76,000-120,000 unit capsule,delayed rel (Creon) sodium,potassium,mag sulfates 17.5 480 ml PO .COMPLEX #354 mL 03/09/23 gram-3.13 gram-1.6 gram oral soln (Suprep Bowel Prep Kit) sucralfate 1 gram tablet 1 g PO DAILY #30 tabs 03/09/23 lidocaine 5 % topical patch 1 patch topical DAILY #30 ea 03/31/23 ondansetron 4 mg disintegrating 4 mg PO Q8H PRN nausea and 04/18/23 tablet vomiting #20 tabs lidocaine 4 % topical patch 1 patch topical DAILY PRN pain #30 05/23/23 (Salonpas (lidocaine)) ea tramadol 50 mg tablet 50 mg PO Q6H PRN pain #120 tabs 06/13/23 Actemra ACTPen 162 mg/0.9 mL 162 mg (0.9 mL) subcut Q2W #1.8 mL 06/20/23 subcutaneous pen injector (tocilizumab) bisacodyl 5 mg tablet,delayed 10 mg (2 x 5 mg) PO BEDTIME #180 08/01/23 release tabs aluminum-mag hydroxide-simethicone 5 ml PO Q6H PRN for heartburn #355 08/10/23 200 mg-200 mg-20 mg/5 mL oral susp mL (Antacid-Antigas) gabapentin 800 mg tablet 800 mg PO TID #90 tabs 08/11/23 amoxicillin 500 mg capsule 500 mg PO Q8H #21 caps 08/21/23 nirmatrelvir 300 mg (150 mg See Rx Instructions PO .COMPLEX 08/21/23 x2)-ritonavir 100 mg tablet,dose #30 ea pack (Paxlovid) Allergies Allergy/AdvReac Type Severity Reaction Status Date / Time No Known Allergies Allergy Verified 08/21/23 17:33 Review of Systems Constitutional: Constitutional: Reports body ache(s), Denies fever(s) and Reports headache(s) ENT: Reports facial pain and Reports headache(s) Cardiovascular: Cardiovascular: Denies chest pain and Reports dyspnea Respiratory: Respiratory: Reports cough and Reports dyspnea Gastrointestinal: Gastrointestinal: Denies abdominal pain, Denies nausea and Denies vomiting Musculoskeletal: Musculoskeletal: Denies back pain Neurologic: Reports headache(s) [facility] Past Medical History Onset Date is defined in the Problem List Problems that require an onset date and time if occurred within 24 hrs of arrival to the ED Aortic Dissection and Rupture; Neurologic impairment; Cardiopulmonary Arrest; Endotracheal Intubation; Insertion or Replacement of Mechanical Circulatory Assist Device Medical History Obesity Bacterial pneumonia COPD (chronic obstructive pulmonary disease) Arthritis Multinodular thyroid Tubular adenoma of colon Chronic fatigue Asthma Bleeding hemorrhoid IBS (irritable bowel syndrome) Vitamin D deficiency Graves disease Hyperlipidemia HTN (hypertension) Diabetes Lumbar radiculopathy Anemia Osteoarthritis Morbid obesity GERD (gastroesophageal reflux disease) Hepatitis C Surgical History Hx of colonoscopy History of esophagogastroduodenoscopy (EGD) Hx of appendectomy Hx of cholecystectomy Family History Family History Mother Diabetes HTN (hypertension) CVD (cardiovascular disease) Heart problem Father Diabetes Brother Autism History of open heart surgery CVD (cardiovascular disease) Diabetes Son Diabetes Maternal Grandmother Diabetes Maternal Grandfather Diabetes Social History Social History Household Members: Spouse, Children and Other Housing: Apartment Are you a primary critical care nurse practitioner to a significant other at home: No Do you presently have visiting nurse or other home services: No Alcohol intake: never Patient Tobacco Use Status: Never used Tobacco Advance Directives: No Advance Directives Information Provided: No service: No Current occupational status: unemployed and disabled Current occupation: rt handed Physical Exam ED Vital Signs: Vital Signs - 24 hr 08/21/23 17:33 08/21/23 20:33 Temperature 97.2 F 98 F Pulse Rate 101 H 102 H Respiratory Rate 22 H 20 Blood Pressure 149/73 H 143/71 H Pulse Oximetry 94 94 Oxygen Delivery Method Room Air Room Air BMI result Body Mass Index 50.0 Const General: healthy appearing, comfortable, no acute distress, alert and awake Nutritional Appearance: well nourished Orientation/consciousness: patient oriented x3 HENMT Other: Patient's is tender over the bilateral frontal, maxillary sinuses. Head: Yes normocephalic and Yes atraumatic Face and sinus: No sinuses nontender Throat: Yes posterior oropharynx normal Eyes Eyelids: Yes eyelids normal Conjunctivae: conjunctivae normal Sclerae: sclerae normal Corneas: corneas normal Pupils: Equal, round and reactive pupils present EOM: EOMs intact bilaterally Neck Neck: Yes full ROM Resp Effort & Inspection: normal respiratory effort, able to speak in complete sentences, no audible wheezes and not labored Auscultation: clear to auscultation bilaterally Cardio Rate: regular rate Rhythm: regular rhythm Skin General skin exam: elasticity normal Neuro General: patient oriented x3 Cranial nerves: Yes Equal, round and reactive pupils present and Yes Bilaterally intact EOM present Cognition (Neuro): normal cognition Extrem Other: Moving all extremities well without any obvious deformities Course Course Course Narrative: RME:?57 yo female w/ hx of morbid obesity, COPD, asthma, Graves, HTN, IBS, GERD, diabetes, delayed gastric emptying, hep C, anemia here for eval of right sided facial pain/pressure x3 days. assoc SOB. O2 dependent on 3L at home. has not worn her O2 in 3 days d/t the pain. denies known sick contacts. no recent illness. no fever, chills. not taking anything at home for pain. +ttp over right maxillay sinus. exam nonfocal. no scalp tenderness or palpable temporal aa. lungs cta b/l. plan for serology, labs, CXR Full HPI, ROS and PE to be performed by the primary ED provider. Medications Administered Discontinued Medications Generic Name Dose Route Start Last Admin Trade Name Freq PRN Reason Stop Dose Admin Amoxicillin 500 mg 08/21/23 21:45 08/21/23 21:52 Amoxicillin 500 Mg Capsule PO 08/21/23 21:46 500 mg ONCE ONE Administration Ibuprofen 600 mg 08/21/23 21:55 08/21/23 21:57 Ibuprofen 600 Mg Tablet PO 08/21/23 21:56 600 mg ONCE ONE Administration Medical Decision Making Medical Decision Making MDM Narrative: 57-year-old female presents for evaluation of shortness of breath, body aches and facial pain. She tested positive for COVID-19. She is quite tender on exam with palpation of her sinuses and is congested. Labs significant for a leukocytosis of 15k. It is possible that she has acute sinusitis on top of her COVID-19 diagnosis as the leukocytosis is usually not seen with COVID-19. Will treat amoxicillin and Paxlovid. The patient reports he uses oxygen at home via nasal cannula however she is on room air at 94% during my evaluation. Differential Diagnosis Differential Diagnoses: The differential diagnosis associated with the presentation includes Acute sinusitis COVID-19 Upper respiratory infection Pneumonia Lab Data MDM Lab Attestation statement: I reviewed the patient's lab results. Leukocytosis to 15.6 K. No anemia. Patient's CO2 is elevated to 31 which is likely related to COPD versus hypoventilation syndrome. No electrolyte abnormalities. 08/21/23 19:17 08/21/23 19:17 Labs: Lab Results 08/21/23 Range/Units 19:17 WBC 15.6 H (4.8-10.8) X10*3/uL RBC 5.13 (4.20-5.50) X10*6/uL Hgb 12.7 (12.0-16.0) g/dl Hct 41.7 (37.0-47.0) % MCV 81.3 (80.0-98.0) fL MCH 24.8 L (27.0-33.0) pg MCHC 30.5 L (31.0-35.0) g/dl RDW 14.6 (11.0-16.0) % Plt Count 336 (160-400) X10*3/uL MPV 10.1 (9.4-12.3) fL Immature Gran % (Auto) 0.5 H (0.0-0.4) % Neut % (Auto) 75.9 H (45-73) % Lymph % (Auto) 15.6 L (20-40) % [place] % (Auto) 7.2 (2-11) % Eos % (Auto) 0.5 (0-4) % Baso % (Auto) 0.3 (0-2) % Lymph # (Auto) 2.4 (1.2-4.9) X10*3/uL [place] # (Auto) 1.1 (0.1-1.2) X10*3/uL Eos # (Auto) 0.1 (0.0-0.4) X10*3/uL Baso # (Auto) 0.1 (0.0-0.2) X10*3/uL Abs Immat Gran (auto) 0.08 H (0.00-0.03) X10*3/uL Absolute Neuts (auto) 11.8 H (2.0-8.3) x10*3/uL Absolute Nucleated RBC 0.000 (0.0-0.012) X10*3/uL Nucleated RBC % (auto) 0.0 (0.0-0.2) /100WBC Sodium 139 (135-145) mmol/L Potassium 3.8 (3.3-5.1) mmol/L Chloride 97 (96-108) mmol/L Carbon Dioxide 31 H (22-29) mmol/L Anion Gap 15 (12-20) BUN 11 (9-16) mg/dL Creatinine 1.08 (0.5-1.4) mg/dL Estim Creat Clear Calc 74.0 Estimated GFR 53 Random Glucose 130 H (60-115) mg/dL Calcium 9.8 (8.4-10.2) mg/dL Magnesium 1.9 (1.6-2.6) mg/dL COVID-19 (ANTWON) Positive A (Negative) COVID-19 Clin Com See Note Influenza Type A (MASSIMO) Negative (Negative) Influenza Type B (MASSIMO) Negative (Negative) Influenza A & B Note See Note Independent Interpretation I performed an independent interpretation of an: Plain X-Ray (No infiltrates) Radiology Impression Discussion of test interpretation with radiology: I have reviewed the radiologist's reading. Radiologist Impression: No evidence of acute disease and chest Discharge Plan Discharge Clinical Impression: COVID-19, Sinusitis Patient Disposition: Home, Self-Care Instructions: Sinusitis (ED), COVID-19 (Coronavirus Disease 2019) (ED) Additional Instructions: You tested positive for COVID-19 which likely explains your shortness of breath Your oxygen saturation has been adequate even without supplemental oxygen Take amoxicillin 3 times a day for 7 days for sinus infection This will not treat the COVID-19 virus Therefore you should also take Paxlovid Follow-up with your primary doctor Return for new or worsening symptoms Prescriptions: New amoxicillin 500 mg capsule 500 mg PO Q8H Qty: 21 0RF Paxlovid 300 mg (150 mg x 2)-100 mg tablets,dose pack See Rx Instructions .ROUTE .COMPLEX Qty: 30 0RF Rx Instructions: take TWO 150 mg tablets of nirmatrelvir with ONE 100 mg tablet of ritonavir twice daily for 5 days No Action nystatin 100,000 unit/gram cream 1 appl topical TID Qty: 30 0RF ondansetron 8 mg tablet,disintegrating 8 mg PO BID-TID PRN (Reason: for nausea/vomiting) Qty: 90 6RF lidocaine [Salonpas (lidocaine)] 4 % adhesive patch,medicated 1 patch topical DAILY PRN (Reason: pain) Qty: 30 2RF Rx Instructions: may leave on for up to 12 hrs Actemra ACTPen 162 mg/0.9 mL pen injector 162 mg subcut Q2W Qty: 1.8 2RF bisacodyl 5 mg tablet,delayed release (DR/EC) 10 mg PO BEDTIME Qty: 180 1RF alum-mag hydroxide-simeth [Antacid-Antigas] 200-200-20 mg/5 mL suspension 5 ml PO Q6H PRN (Reason: for heartburn) Qty: 355 4RF gabapentin 800 mg tablet 800 mg PO TID Qty: 90 2RF diltiazem HCl 180 mg capsule,extended release 24hr 180 mg PO QAM sertraline 100 mg tablet 100 mg PO QAM aspirin 81 mg tablet,delayed release (DR/EC) 81 mg PO QPM lorazepam 0.5 mg tablet 0.5 mg PO BID PRN (Reason: anxiety) ferrous sulfate [FeroSul] 325 mg (65 mg iron) tablet 1 tab PO BID lidocaine 5 % adhesive patch,medicated 1 patch topical DAILY losartan 25 mg tablet 25 mg PO QAM folic acid 1 mg tablet 1 mg PO QAM montelukast 10 mg tablet 10 mg PO QPM furosemide 20 mg tablet 20 mg PO QAM zolpidem 10 mg tablet 10 mg PO BEDTIME PRN (Reason: Insomnia) metformin 500 mg tablet extended release 24 hr 1,000 mg PO BIDAC budesonide-formoterol [Symbicort] 160-4.5 mcg/actuation HFA aerosol inhaler 2 puff PO BID multivitamin Tablet 1 tab PO QPM lamotrigine 200 mg tablet 1 tab PO BEDTIME albuterol sulfate 2.5 mg /3 mL (0.083 %) solution for nebulization 1 amp inhalation Q6H PRN (Reason: wheezing) simvastatin 40 mg tablet 1 tab PO BEDTIME Spiriva with HandiHaler 18 mcg capsule, w/inhalation device 1 cap inhalation DAILY cholecalciferol (vitamin D3) [Vitamin D3] 50 mcg (2,000 unit) Capsule 50 mcg PO DAILY Trulicity 0.75 mg/0.5 mL pen injector 0.75 mg subcut QWEEK ondansetron 4 mg tablet,disintegrating 4 mg PO Q8H PRN (Reason: nausea and vomiting) Qty: 20 0RF Nucala 100 mg/mL auto-injector subcut Q4W hydrochlorothiazide 12.5 mg tablet 12.5 mg PO Q OTHER DAY (DME) lancets [TRUEplus Lancets] 33 gauge misc See Rx Instructions .ROUTE QID Qty: 100 Rx Instructions: As directed bupropion HCl 300 mg tablet extended release 24 hr 300 mg PO QAM mirtazapine 15 mg tablet 15 mg PO BEDTIME alcohol swabs [Alcohol Prep Pads] Pads, Medicated 0 pad topical QID (DME) FreeStyle Lite Strips Strip See Rx Instructions .ROUTE QID Qty: 10 Rx Instructions: As directed lidocaine 5 % adhesive patch,medicated 1 patch topical DAILY Qty: 30 3RF Rx Instructions: leave on most painful area for up to 12 hrs tramadol 50 mg tablet 50 mg PO Q6H PRN (Reason: pain) Qty: 120 2RF sodium,potassium,mag sulfates [Suprep Bowel Prep Kit] 17.5-3.13-1.6 gram recon soln 480 ml PO .COMPLEX Qty: 354 0RF Rx Instructions: 480 mL orally; dexlansoprazole [Dexilant] 60 mg capsule,biphase delayed releas 60 mg PO BEDTIME 90 Days Qty: 90 1RF dicyclomine 10 mg capsule 10 mg PO QID Qty: 120 6RF docusate sodium 100 mg capsule 100 mg PO DAILY Qty: 30 6RF Creon 24,000-76,000 -120,000 unit capsule,delayed release(DR/EC) 2 cap PO QID Qty: 240 6RF sucralfate 1 gram tablet 1 g PO DAILY Qty: 30 6RF Hold Instructions: Doctor's Order Interventions: ED Discharge Assessment Last Done: 08/21/23 22:43 Discharge Date/Time: 08/21/23 22:43
[2023-08-21 17:33] VITALS: BP 149/73; PULSE 101; RESP 22; TEMP 36.2; O2SAT 94; BMI 50.0
[2023-08-21 19:22] LABS: MANUAL DIFF FLAG NO
[2023-08-21 19:34] LABS: COVID-19 Test Positive (Negative); IDNOW Serial# 152EDE1D
[2023-08-21 19:37] LABS: Anion Gap 15 (12-20); Basophils Absolute Auto 0.1 X10*3/uL (0.0-0.2); Basophils Percent Auto 0.3 % (0-2); Blood Urea Nitrogen 11 mg/dL (9-16); Calcium 9.8 mg/dL (8.4-10.2); Carbon Dioxide 31 mmol/L (22-29); Chloride 97 mmol/L (96-108); Eosinophils Absolute Auto 0.1 X10*3/uL (0.0-0.4); Eosinophils Percent Auto 0.5 % (0-4); Estimated Glomerular Filt Rate 53; Glucose Random 130 mg/dL (60-115); Hematocrit 41.7 % (37.0-47.0); Hemoglobin 12.7 g/dl (12.0-16.0); Imm Gran Abs Auto 0.08 X10*3/uL (0.00-0.03); Imm Gran Pct Auto 0.5 % (0.0-0.4); Lymphocytes Absolute Auto 2.4 X10*3/uL (1.2-4.9); Lymphocytes Percent Auto 15.6 % (20-40); Magnesium 1.9 mg/dL (1.6-2.6); Mean Corpuscular HGB Conc 30.5 g/dl (31.0-35.0); Mean Corpuscular Hemoglobin 24.8 pg (27.0-33.0); Mean Corpuscular Volume 81.3 fL (80.0-98.0); Mean Platelet Volume 10.1 fL (9.4-12.3); Monocytes Absolute Auto 1.1 X10*3/uL (0.1-1.2); Monocytes Percent Auto 7.2 % (2-11); Neutrophils Absolute Auto 11.8 x10*3/uL (2.0-8.3); Neutrophils Percent Auto 75.9 % (45-73); Platelet Count 336 X10*3/uL (160-400); Potassium 3.8 mmol/L (3.3-5.1); Red Blood Count 5.13 X10*6/uL (4.20-5.50); Red Cell Distribution Width 14.6 % (11.0-16.0); Sodium 139 mmol/L (135-145); White Blood Count 15.6 X10*3/uL (4.8-10.8)
[2023-08-21 19:46] LABS: IDNOW Serial# 08D9AD1C; Influenza A Negative (Negative); Influenza B2 Negative (Negative)
[2023-08-21 20:33] VITALS: BP 143/71; PULSE 102; RESP 20; TEMP 36.6; O2SAT 94
[2023-08-21] MEDS: Amoxicillin 500 MG CAPSULE PO (21:52)
[2023-08-21] MEDS: Ibuprofen 600 MG TABLET PO (21:57)
== END 2023-08-21 22:43 | disposition home or self-care (01) ==
PROVIDERS: Physician Assistant Medical; Emergency Provider Emergency Medicine; PCP Internal Medicine
DX: U07.1 COVID-19 (principal); J32.9 Chronic sinusitis, unspecified; R06.02 Shortness of breath; R51.9 Headache, unspecified; M79.10 Myalgia, unspecified site; Z79.899 Other long term (current) drug therapy
CPT/HCPCS: 36415; 71046; 80048; 83735; 85025; 87502; 87635; 99283; 99284

== ENCOUNTER 2023-08-23 12:22 | Emergency (ER) | payer MEDICARE, MEDICAID, SELFPAY ==
--- NOTE | ~2023-08-23 | XR_ITS ---
EXAMINATION: XR CHEST CLINICAL INFORMATION: Worsening SOB COMPARISON: Chest 08/21/2023. TECHNIQUE: 2 views of the chest were obtained. FINDINGS: The lungs are well-expanded with the right upper lobe increased markings in vascularity question scarring or atelectasis. Rest lungs are clear. Heart size and pulmonary vascularity is normal. No gross bony abnormality seen except for mild spondylosis lower dorsal spine. XR/XR chest 2V IMPRESSION: Prominent markings in the right lung apex suggestive of interstitial edema versus atelectasis.
[2023-08-23 12:46] VITALS: BP 141/63; PULSE 106; RESP 18; TEMP 36.2; O2SAT 90; BMI 48.3
--- NOTE | 2023-08-23 12:47 | ED.GENADULT ---
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 Patient states that she was here a few days ago, given Paxlovid for her COVID-19 diagnosis and antibiotics for her sinusitsis, and now she states she is feeling worse. Patient denies any dizziness, lightheadedness, abdominal pain, nausea, vomiting, fever, chills, blurry vision, double vision, loss of vision, chest pain, difficulty breathing, shortness of breath, back pain, night sweats, pain with urination, increased urinary frequency, increased urinary urgency, blood in her urine or stool, syncope or a near syncopal episode, recent trauma or falls, bowel incontinence, bladder incontinence, bowel retention, bladder retention, or any other complaints at this time. Exacerbating factors: none Related Data Home Medications Medication Instructions Recorded Confirmed albuterol sulfate 2.5 mg/3 mL 1 amp inhalation Q6H PRN wheezing 08/12/21 12/27/22 (0.083 %) solution for nebulization aspirin 81 mg tablet,delayed 81 mg PO QPM 08/12/21 12/27/22 release budesonide-formoterol HFA 160 2 puff PO BID 08/12/21 12/27/22 mcg-4.5 mcg/actuation aerosol inhaler (Symbicort) diltiazem HCl 180 mg 180 mg PO QAM 08/12/21 12/27/22 capsule,extended release 24 hr ferrous sulfate 325 mg (65 mg 1 tab PO BID 08/12/21 12/27/22 iron) tablet (FeroSul) folic acid 1 mg tablet 1 mg PO QAM 08/12/21 12/27/22 furosemide 20 mg tablet 20 mg PO QAM 08/12/21 12/27/22 lamotrigine 200 mg tablet 1 tab PO BEDTIME 08/12/21 12/27/22 lidocaine 5 % topical patch 1 patch topical DAILY 08/12/21 12/27/22 lorazepam 0.5 mg tablet 0.5 mg PO BID PRN anxiety 08/12/21 12/27/22 losartan 25 mg tablet 25 mg PO QAM 08/12/21 12/27/22 metformin 500 mg tablet,extended 1,000 mg PO BIDAC 08/12/21 12/27/22 release 24 hr montelukast 10 mg tablet 10 mg PO QPM 08/12/21 12/27/22 multivitamin 1 tab PO QPM 08/12/21 12/27/22 sertraline 100 mg tablet 100 mg PO QAM 08/12/21 12/27/22 simvastatin 40 mg tablet 1 tab PO BEDTIME 08/12/21 12/27/22 tiotropium bromide 18 mcg capsule 1 cap inhalation DAILY 08/12/21 12/27/22 with inhalation device (Spiriva with HandiHaler) zolpidem 10 mg tablet 10 mg PO BEDTIME PRN Insomnia 08/12/21 12/27/22 alcohol swabs (Alcohol Prep Pads) 0 pad topical QID 06/10/22 12/27/22 blood sugar diagnostic (FreeStyle #10 ea 06/10/22 12/27/22 Lite Strips) bupropion HCl 300 mg 24 hr tablet, 300 mg PO QAM 06/10/22 12/27/22 extended release hydrochlorothiazide 12.5 mg tablet 12.5 mg PO Q OTHER DAY 06/10/22 12/27/22 lancets 33 gauge (TRUEplus Lancets) #100 ea 06/10/22 12/27/22 mepolizumab 100 mg/mL subcutaneous mg subcut Q4W 06/10/22 12/27/22 auto-injector (Nucala) mirtazapine 15 mg tablet 15 mg PO BEDTIME 06/10/22 12/27/22 cholecalciferol (vitamin D3) 50 50 mcg PO DAILY 12/15/22 12/27/22 mcg (2,000 unit) capsule (Vitamin D3) dulaglutide 0.75 mg/0.5 mL 0.75 mg subcut QWEEK 12/15/22 12/27/22 subcutaneous pen injector (Trulicity) Previous Rx's Medication Instructions Recorded nystatin 100,000 unit/gram topical 1 appl topical TID #30 grams 07/12/22 cream ondansetron 8 mg disintegrating 8 mg PO BID-TID PRN for 02/17/23 tablet nausea/vomiting #90 ea dexlansoprazole 60 mg 60 mg PO BEDTIME 90 days #90 caps 03/09/23 capsule,biphase delayed release (Dexilant) dicyclomine 10 mg capsule 10 mg PO QID #120 ea 03/09/23 docusate sodium 100 mg capsule 100 mg PO DAILY #30 caps 03/09/23 [id number] 2 cap PO QID #240 caps 03/09/23 24,000-76,000-120,000 unit capsule,delayed rel (Creon) sodium,potassium,mag sulfates 17.5 480 ml PO .COMPLEX #354 mL 03/09/23 gram-3.13 gram-1.6 gram oral soln (Suprep Bowel Prep Kit) sucralfate 1 gram tablet 1 g PO DAILY #30 tabs 03/09/23 lidocaine 5 % topical patch 1 patch topical DAILY #30 ea 03/31/23 ondansetron 4 mg disintegrating 4 mg PO Q8H PRN nausea and 04/18/23 tablet vomiting #20 tabs lidocaine 4 % topical patch 1 patch topical DAILY PRN pain #30 05/23/23 (Salonpas (lidocaine)) ea tramadol 50 mg tablet 50 mg PO Q6H PRN pain #120 tabs 06/13/23 Actemra ACTPen 162 mg/0.9 mL 162 mg (0.9 mL) subcut Q2W #1.8 mL 06/20/23 subcutaneous pen injector (tocilizumab) bisacodyl 5 mg tablet,delayed 10 mg (2 x 5 mg) PO BEDTIME #180 08/01/23 release tabs aluminum-mag hydroxide-simethicone 5 ml PO Q6H PRN for heartburn #355 08/10/23 200 mg-200 mg-20 mg/5 mL oral susp mL (Antacid-Antigas) gabapentin 800 mg tablet 800 mg PO TID #90 tabs 08/11/23 amoxicillin 500 mg capsule 500 mg PO Q8H #21 caps 08/21/23 nirmatrelvir 300 mg (150 mg See Rx Instructions PO .COMPLEX 08/21/23 x2)-ritonavir 100 mg tablet,dose #30 ea pack (Paxlovid) doxycycline hyclate 100 mg tablet 100 mg PO BID 7 days #14 tabs 08/23/23 prednisone 20 mg tablet 20 mg PO DAILY 7 days #7 tabs 08/23/23 Allergies Allergy/AdvReac Type Severity Reaction Status Date / Time No Known Allergies Allergy Verified 08/23/23 12:54 Review of Systems Constitutional: Constitutional: Reports no additional constitutional complaints, Reports body ache(s), Denies chills, Denies fever(s) and Denies night sweats Eyes: Eyes: Reports no additional eye complaints, Denies blurry vision, Denies change in vision, Denies diplopia, Denies eye discharge, Denies loss of vision and Denies eye pain ENT: Denies dizziness and Reports nasal congestion Cardiovascular: Cardiovascular: Reports no additional cardiovascular complaints, Denies chest pain, Denies lightheadedness, Denies Loss of Consciousness and Denies dyspnea Respiratory: Respiratory: Reports no additional respiratory complaints and Denies dyspnea Gastrointestinal: Gastrointestinal: Reports no additional gastrointestinal complaints, Denies abdominal pain, Denies melena, Denies hematochezia, Denies change in bowel habits and Denies change in stool character Genitourinary: Genitourinary: Denies hematuria, Denies urinary frequency, Denies dysuria, Denies urinary incontinence, Denies urinary hesitancy and Denies urinary urgency Musculoskeletal: Musculoskeletal: Reports no additional musculoskeletal complaints, Denies numbness and Denies tingling Neurologic: Denies dizziness, Denies loss of vision, Denies numbness and Denies tingling Psychiatric: Psychiatric: Reports no additional psychiatric complaints Endocrine: Endocrine: Reports no additional endocrine complaints Hematologic/Lymphatic: Hematologic/Lymphatic: Reports no additional hematologic/lymphatic complaints Allergic/Immunologic: Allergic/Immunologic: Reports no additional allergic/immunologic complaints PMFSH Past Medical History Attestation statement: The following information was validated with the patient. Source: old records reviewed and nursing notes reviewed Onset Date is defined in the Problem List Problems that require an onset date and time if occurred within 24 hrs of arrival to the ED Aortic Dissection and Rupture; Neurologic impairment; Cardiopulmonary Arrest; Endotracheal Intubation; Insertion or Replacement of Mechanical Circulatory Assist Device Medical History Sinusitis COVID-19 COVID-19 High risk medication use Colon cancer screening Controlled substance agreement signed Medication monitoring encounter Velia albicans infection Abdominal pain Lab test positive for detection of COVID-19 virus COVID-19 Low back pain Left elbow pain Nausea Abdominal bloating Obesity Bacterial pneumonia COPD (chronic obstructive pulmonary disease) Arthritis Multinodular thyroid Tubular adenoma of colon Chronic fatigue Asthma Bleeding hemorrhoid IBS (irritable bowel syndrome) Vitamin D deficiency Graves disease Hyperlipidemia HTN (hypertension) Diabetes Lumbar radiculopathy Anemia Osteoarthritis Morbid obesity GERD (gastroesophageal reflux disease) Hepatitis C Surgical History Hx of colonoscopy History of esophagogastroduodenoscopy (EGD) Hx of appendectomy Hx of cholecystectomy Family History Family History Mother Diabetes HTN (hypertension) CVD (cardiovascular disease) Heart problem Father Diabetes Brother Autism History of open heart surgery CVD (cardiovascular disease) Diabetes Son Diabetes Maternal Grandmother Diabetes Maternal Grandfather Diabetes Social History Social History Household Members: Spouse, Children and Other Housing: Apartment Are you a primary career guidance technician to a significant other at home: No Do you presently have visiting nurse or other home services: No Alcohol intake: never Patient Tobacco Use Status: Never used Tobacco Advance Directives: No Advance Directives Information Provided: No service: No Current occupational status: unemployed and disabled Current occupation: rt handed Physical Exam ED Vital Signs: Vital Signs - 24 hr 08/23/23 12:46 08/23/23 13:48 Temperature 97.2 F Pulse Rate 106 H 103 H Respiratory Rate 18 20 Blood Pressure 141/63 H Pulse Oximetry 90 L Oxygen Delivery Method Room Air BMI result Body Mass Index 48.3 Const General: cooperative, no acute distress, alert and awake Nutritional Appearance: well nourished Orientation/consciousness: patient oriented x3 Limitations: no limitations HENMT Head: Yes normal to inspection and Yes atraumatic Ears: hearing grossly normal bilaterally and external ears normal General nose exam: Normal external nose present, no nasal discharge noted and no epistaxis Face and sinus: Yes normal facial exam, No abrasion and No laceration Mouth: Normal oral and palatal mucosa present, no drooling and no muffled voice Eyes General: appearance normal, both eyes and all related structures Periorbital: periorbital findings normal Eyelids: Yes eyelids normal Conjunctivae: conjunctivae normal Pupils: Equal, round and reactive pupils present EOM: EOMs intact bilaterally Neck Neck: Yes normal visual inspection, Yes full ROM and Yes no lymphadenopathy Chest Chest palpation & inspection: normal inspection of the chest Resp Effort & Inspection: normal respiratory effort and able to speak in complete sentences GI Inspection: Yes normal to inspection Neuro General: patient oriented x3 and moves all extremities Cranial nerves: Yes Equal, round and reactive pupils present Cognition (Neuro): normal cognition Motor exam (neuro): 5/5 motor strength present throughout Sensory Exam: Normal double simultaneous stimulation for sensation Coordination: [id number] test normal Extrem General: Yes normal to inspection, Yes full ROM and Yes capillary refill normal Psych Appearance: grossly normal Mental Status: mental status grossly normal Affect: normal affect Attitude: cooperative Thought process: Normal thought process present Thought content: Normal thought content present Insight: Good insight present (Psych) Course Course Course Narrative: RME:?57 yo female w/ hx of morbid obesity, COPD, asthma, Graves, HTN, IBS, GERD, diabetes, delayed gastric emptying, hep C, anemia here for eval right sided facial pain and shortness of breath. sob at rest and on exertion. states that she is typically on 3L O2 at home, unable to wear this d/t facial pain. Seen here 2 days ago for the same, diagnosed w/ covid and sinusitis, d/c home with amox and paxlovid. endorses worsening symptoms since being discharged. called pcp who told her to return to the ED. denies chest pain, n/v. +ttp over right maxillary sinus, minimal expiratory wheezes b/l plan for labs, cxr, ed bronch protocol Full HPI, ROS and PE to be performed by the primary ED provider. Medications Administered Discontinued Medications Generic Name Dose Route Start Last Admin Trade Name Freq PRN Reason Stop Dose Admin Albuterol Sulfate 2 puff 08/23/23 13:10 08/23/23 13:46 Albuterol Sulfate 90 Mcg 8 Gm Inhaler INHALE 08/23/23 13:11 2 puff ONCE ONE Administration Ketorolac Tromethamine 15 mg 08/23/23 14:49 08/23/23 15:25 Ketorolac Tromethamine 15 Mg/Ml Vial IM 08/23/23 14:50 15 mg ONCE ONE Administration Medical Decision Making Medical Decision Making [facility] Narrative: Patient is a 57 year old assigned female at with a history of asthma presenting to the emergency department today with worsening COVID-19 and sinusitis symptoms. Patient's physical exam was unremarkable. Patient's blood work was unremarkable. Patient's chest x-ray showed no acute process. I explained my physical exam findings as well as all test results to the patient. I answered all questions asked by the patient. I stressed the importance of the patient taking her medication as prescribed. I stressed the importance of the patient following up with her primary care provider. I stressed the importance of the patient returning to the emergency department immediately if her symptoms were to worsen or if she were to develop any dizziness, shortness of breath, difficulty breathing, chest pain, blurry vision, loss of vision, nausea, vomiting, abdominal pain, fever, chills, back pain, or any other complaints. Patient verbalized agreement and understanding with this treatment plan and discharge. Differential Diagnosis Differential Diagnoses: The differential diagnosis associated with the presentation includes COVID-19 Sinusitis Poor reaction to medication Rebound COVID-19 Admission/Observation Consideration of admission/observation: Escalation of care including admission/observation considered Patient would have been admitted to the hospital had her work up had any findings where hospital admission was appropriate and her clinical presentation warranted hospital admission. Lab Data [facility] Lab Attestation statement: I reviewed the patient's lab results. My interpretation of these results are in the [facility] Rationale portion of this note. 08/23/23 14:06 08/23/23 14:06 Labs: Lab Results 08/23/23 Range/Units 14:06 WBC 13.1 H (4.8-10.8) X10*3/uL RBC 4.75 (4.20-5.50) X10*6/uL Hgb 11.9 L (12.0-16.0) g/dl Hct 38.9 (37.0-47.0) % MCV 81.9 (80.0-98.0) fL MCH 25.1 L (27.0-33.0) pg MCHC 30.6 L (31.0-35.0) g/dl RDW 14.6 (11.0-16.0) % Plt Count 274 (160-400) X10*3/uL MPV 9.6 (9.4-12.3) fL Immature Gran % (Auto) 0.4 (0.0-0.4) % Neut % (Auto) 78.0 H (45-73) % Lymph % (Auto) 11.6 L (20-40) % Floyd % (Auto) 9.3 (2-11) % Eos % (Auto) 0.4 (0-4) % Baso % (Auto) 0.3 (0-2) % Lymph # (Auto) 1.5 (1.2-4.9) X10*3/uL Floyd # (Auto) 1.2 (0.1-1.2) X10*3/uL Eos # (Auto) 0.1 (0.0-0.4) X10*3/uL Baso # (Auto) 0.0 (0.0-0.2) X10*3/uL Abs Immat Gran (auto) 0.05 H (0.00-0.03) X10*3/uL Absolute Neuts (auto) 10.2 H (2.0-8.3) x10*3/uL Absolute Nucleated RBC 0.000 (0.0-0.012) X10*3/uL Nucleated RBC % (auto) 0.0 (0.0-0.2) /100WBC PT 12.1 (11.1-13.3) SEC INR 1.0 (0.9-1.1) Sodium 137 (135-145) mmol/L Potassium 3.7 (3.3-5.1) mmol/L Chloride 97 (96-108) mmol/L Carbon Dioxide 30 H (22-29) mmol/L Anion Gap 14 (12-20) BUN 9 (9-16) mg/dL Creatinine 0.93 (0.5-1.4) mg/dL Estim Creat Clear Calc 87.2 Estimated GFR > 60 Random Glucose 165 H (60-115) mg/dL Calcium 9.6 (8.4-10.2) mg/dL Magnesium 1.9 (1.6-2.6) mg/dL Independent Interpretation I performed an independent interpretation of an: Plain X-Ray Interpretation: My interpretation is in agreement with the radiologist's impression of this imaging study. EXAMINATION: XR CHEST CLINICAL INFORMATION: Worsening SOB COMPARISON: Chest 08/21/2023. TECHNIQUE: 2 views of the chest were obtained. FINDINGS: The lungs are well-expanded with the right upper lobe increased markings in vascularity question scarring or atelectasis. Rest lungs are clear. Heart size and pulmonary vascularity is normal. No gross bony abnormality seen except for mild spondylosis lower dorsal spine. XR/XR chest 2V IMPRESSION: Prominent markings in the right lung apex suggestive of interstitial edema versus atelectasis. Dictated By: Gage Bolton MD Signed By: Electronically signed by Gage Bolton MD 08/23/23 1937 Radiology Impression Discussion of test interpretation with radiology: I have reviewed the radiologist's reading. Prescription Management I considered prescription management with: Antibiotic (patient prescribed doxycycline to replace her current ABX) Chronic Conditions Patient?s care impacted by: Other (asthma) Discharge Plan Discharge Clinical Impression: COVID-19, Sinusitis Patient Disposition: Home, Self-Care Instructions: Sinusitis (ED), COVID-19 (Coronavirus Disease 2019) (ED) Additional Instructions: STOP taking Paxlovid and the Azirthromycin. Begin taking the steroids and doxycycline prescribed today. Follow up with your primary care provider. Return to the emergency department immediately if your symptoms worsen or if you develop any dizziness, shortness of breath, difficulty breathing, chest pain, blurry vision, loss of vision, nausea, vomiting, abdominal pain, fever, chills, back pain, or any other complaints. DEJE de asael Paxlovid y Azirtromicina. Comience a asael los esteroides y la doxiciclina que le recetaron hoy. Theodore un seguimiento con [place] proveedor de atenci?n primaria. Regrese al departamento de emergencias inmediatamente si alejandro s?ntomas empeoran o si presenta mareos, dificultad para respirar, dificultad para respirar, dolor en el pecho, visi?n borrosa, p?rdida de la visi?n, n?useas, v?mitos, dolor abdominal, fiebre, escalofr?os, dolor de espalda o cualquier otras quejas. Prescriptions: New prednisone 20 mg tablet 20 mg PO DAILY 7 Days Qty: 7 0RF doxycycline hyclate 100 mg tablet 100 mg PO BID 7 Days Qty: 14 0RF No Action nystatin 100,000 unit/gram cream 1 appl topical TID Qty: 30 0RF ondansetron 8 mg tablet,disintegrating 8 mg PO BID-TID PRN (Reason: for nausea/vomiting) Qty: 90 6RF lidocaine [Salonpas (lidocaine)] 4 % adhesive patch,medicated 1 patch topical DAILY PRN (Reason: pain) Qty: 30 2RF Rx Instructions: may leave on for up to 12 hrs Actemra ACTPen 162 mg/0.9 mL pen injector 162 mg subcut Q2W Qty: 1.8 2RF bisacodyl 5 mg tablet,delayed release (DR/EC) 10 mg PO BEDTIME Qty: 180 1RF alum-mag hydroxide-simeth [Antacid-Antigas] 200-200-20 mg/5 mL suspension 5 ml PO Q6H PRN (Reason: for heartburn) Qty: 355 4RF gabapentin 800 mg tablet 800 mg PO TID Qty: 90 2RF diltiazem HCl 180 mg capsule,extended release 24hr 180 mg PO QAM sertraline 100 mg tablet 100 mg PO QAM aspirin 81 mg tablet,delayed release (DR/EC) 81 mg PO QPM lorazepam 0.5 mg tablet 0.5 mg PO BID PRN (Reason: anxiety) ferrous sulfate [FeroSul] 325 mg (65 mg iron) tablet 1 tab PO BID lidocaine 5 % adhesive patch,medicated 1 patch topical DAILY losartan 25 mg tablet 25 mg PO QAM folic acid 1 mg tablet 1 mg PO QAM montelukast 10 mg tablet 10 mg PO QPM furosemide 20 mg tablet 20 mg PO QAM zolpidem 10 mg tablet 10 mg PO BEDTIME PRN (Reason: Insomnia) metformin 500 mg tablet extended release 24 hr 1,000 mg PO BIDAC budesonide-formoterol [Symbicort] 160-4.5 mcg/actuation HFA aerosol inhaler 2 puff PO BID multivitamin Tablet 1 tab PO QPM lamotrigine 200 mg tablet 1 tab PO BEDTIME albuterol sulfate 2.5 mg /3 mL (0.083 %) solution for nebulization 1 amp inhalation Q6H PRN (Reason: wheezing) simvastatin 40 mg tablet 1 tab PO BEDTIME Spiriva with HandiHaler 18 mcg capsule, w/inhalation device 1 cap inhalation DAILY amoxicillin 500 mg capsule 500 mg PO Q8H Qty: 21 0RF Paxlovid 300 mg (150 mg x 2)-100 mg tablets,dose pack See Rx Instructions .ROUTE .COMPLEX Qty: 30 0RF Rx Instructions: take TWO 150 mg tablets of nirmatrelvir with ONE 100 mg tablet of ritonavir twice daily for 5 days cholecalciferol (vitamin D3) [Vitamin D3] 50 mcg (2,000 unit) Capsule 50 mcg PO DAILY Trulicity 0.75 mg/0.5 mL pen injector 0.75 mg subcut QWEEK ondansetron 4 mg tablet,disintegrating 4 mg PO Q8H PRN (Reason: nausea and vomiting) Qty: 20 0RF Nucala 100 mg/mL auto-injector subcut Q4W hydrochlorothiazide 12.5 mg tablet 12.5 mg PO Q OTHER DAY (DME) lancets [TRUEplus Lancets] 33 gauge misc See Rx Instructions .ROUTE QID Qty: 100 Rx Instructions: As directed bupropion HCl 300 mg tablet extended release 24 hr 300 mg PO QAM mirtazapine 15 mg tablet 15 mg PO BEDTIME alcohol swabs [Alcohol Prep Pads] Pads, Medicated 0 pad topical QID (DME) FreeStyle Lite Strips Strip See Rx Instructions .ROUTE QID Qty: 10 Rx Instructions: As directed lidocaine 5 % adhesive patch,medicated 1 patch topical DAILY Qty: 30 3RF Rx Instructions: leave on most painful area for up to 12 hrs tramadol 50 mg tablet 50 mg PO Q6H PRN (Reason: pain) Qty: 120 2RF sodium,potassium,mag sulfates [Suprep Bowel Prep Kit] 17.5-3.13-1.6 gram recon soln 480 ml PO .COMPLEX Qty: 354 0RF Rx Instructions: 480 mL orally; dexlansoprazole [Dexilant] 60 mg capsule,biphase delayed releas 60 mg PO BEDTIME 90 Days Qty: 90 1RF dicyclomine 10 mg capsule 10 mg PO QID Qty: 120 6RF docusate sodium 100 mg capsule 100 mg PO DAILY Qty: 30 6RF Creon 24,000-76,000 -120,000 unit capsule,delayed release(DR/EC) 2 cap PO QID Qty: 240 6RF sucralfate 1 gram tablet 1 g PO DAILY Qty: 30 6RF Hold Instructions: Doctor's Order Referrals: Dee Valenzuela MD [Primary Care Provider] - Interventions: ED Discharge Assessment Last Done: 08/23/23 15:33 Discharge Date/Time: 08/23/23 15:35 Print Language: Sinhala
[2023-08-23] MEDS: Albuterol Sulfate 90 MCG 8 GM INHALER 2 PUFF INHALE (13:46)
[2023-08-23 13:48] VITALS: PULSE 103; RESP 20; O2SAT 88
[2023-08-23 14:11] LABS: MANUAL DIFF FLAG NO
[2023-08-23 14:12] LABS: Basophils Percent Auto 0.3 % (0-2); Eosinophils Absolute Auto 0.1 X10*3/uL (0.0-0.4); Eosinophils Percent Auto 0.4 % (0-4); Hematocrit 38.9 % (37.0-47.0); Hemoglobin 11.9 g/dl (12.0-16.0); Imm Gran Abs Auto 0.05 X10*3/uL (0.00-0.03); Imm Gran Pct Auto 0.4 % (0.0-0.4); Lymphocytes Absolute Auto 1.5 X10*3/uL (1.2-4.9); Lymphocytes Percent Auto 11.6 % (20-40); Mean Corpuscular HGB Conc 30.6 g/dl (31.0-35.0); Mean Corpuscular Hemoglobin 25.1 pg (27.0-33.0); Mean Corpuscular Volume 81.9 fL (80.0-98.0); Mean Platelet Volume 9.6 fL (9.4-12.3); Monocytes Absolute Auto 1.2 X10*3/uL (0.1-1.2); Monocytes Percent Auto 9.3 % (2-11); Neutrophils Absolute Auto 10.2 x10*3/uL (2.0-8.3); Platelet Count 274 X10*3/uL (160-400); Red Blood Count 4.75 X10*6/uL (4.20-5.50); Red Cell Distribution Width 14.6 % (11.0-16.0); White Blood Count 13.1 X10*3/uL (4.8-10.8)
[2023-08-23 14:18] LABS: Prothrombin Time 12.1 SEC (11.1-13.3)
[2023-08-23 14:24] LABS: Anion Gap 14 (12-20); Blood Urea Nitrogen 9 mg/dL (9-16); Calcium 9.6 mg/dL (8.4-10.2); Carbon Dioxide 30 mmol/L (22-29); Chloride 97 mmol/L (96-108); Creatinine Clr Calc Pharmacy 87.2; Estimated Glomerular Filt Rate > 60; Glucose Random 165 mg/dL (60-115); Magnesium 1.9 mg/dL (1.6-2.6); Potassium 3.7 mmol/L (3.3-5.1); Sodium 137 mmol/L (135-145)
[2023-08-23] MEDS: Ketorolac Tromethamine 15 MG/ML VIAL IM (15:25)
== END 2023-08-23 15:35 | disposition home or self-care (01) ==
PROVIDERS: Physician Assistant Medical; Emergency Provider Emergency Medicine; PCP Internal Medicine
DX: U07.1 COVID-19 (principal); J32.9 Chronic sinusitis, unspecified; R06.02 Shortness of breath
CPT/HCPCS: 36415; 71046; 80048; 83735; 85025; 85610; 94640; 96372; 99284; J1885

== ENCOUNTER 2023-09-15 16:57 | Emergency (ER) | payer MEDICARE, MEDICAID, SELFPAY ==
--- NOTE | ~2023-09-15 | CT_ITS ---
EXAMINATION: CT ABDOMEN AND PELVIS WITHOUT CONTRAST CLINICAL INFORMATION: Upper abdominal pain. COMPARISON: CT abdomen and pelvis from 04/18/2023.. TECHNIQUE: Multidetector volumetric imaging was performed from the lung bases to the pubic without contrast. Sagittal and coronal reformatted images were obtained on the technologist workstation. This CT examination was performed using dose optimization techniques as appropriate, variously including the following: *Automated exposure control. *Adjustment of mA and/or kV according to patient size (this includes techniques or standardized protocols for targeted exams where dose is matched to indication/reason for exam; i.e. extremities or head). *Use of iterative reconstruction technique. DLP: 1027 mGy-cm FINDINGS: Evaluation is partially limited by respiratory motion and mottling secondary to patient body habitus. LUNG BASES: Mild bilateral dependent atelectasis. Otherwise, no abnormalities of the visualized lung bases. No demonstrated abnormalities of the visualized cardiac structures. ABDOMEN/PELVIS: Liver, Biliary Ducts, and Gallbladder: The unenhanced liver is mildly enlarged (up to 21 cm in craniocaudal dimension) and decreased in attenuation (14 Hounsfield units). No biliary ductal dilatation. Changes of prior cholecystectomy. Pancreas: Partial fatty atrophy of the pancreatic head. Potential minimal fat stranding surrounding the pancreatic head; however, this appears relatively similar to prior exams. Otherwise, the pancreas is normal in appearance. Adrenal Glands: The adrenal glands are normal in appearance. Spleen: The spleen is mildly enlarged, measuring up to 13 cm in long axis. No demonstrated additional splenic abnormalities. Kidneys and Ureters: The unenhanced kidneys are normal in size without evidence of nephrolithiasis or hydronephrosis. There is a 3 cm simple appearing renal cyst associated with the left kidney (no follow-up imaging recommended based on current guidelines at the time of examination). Multiple additional subcentimeter lesions are too small to characterize by CT but statistically benign in etiology. No ureterolithiasis or hydroureter. Urinary Bladder: The urinary bladder is partially distended without focal wall thickening. No bladder calculi are demonstrated. Gastrointestinal System: The stomach is decompressed and therefore not well evaluated on this exam. The small bowel is of normal caliber. The colon is normal in appearance without focal wall thickening or pericolonic inflammatory change. Normal appendix. Genitourinary: No demonstrated adnexal soft tissue masses. Intra-abdominal and Retroperitoneal Spaces: No intra-abdominal free fluid collections or gas. No mesenteric, retroperitoneal, or inguinal lymphadenopathy. VASCULATURE: The abdominal aorta is of normal contour and caliber. MUSCULOSKELETAL: Mild to moderate multilevel degenerative changes of the spine. Synchondrosis between the lateral aspects of the left 6th-7th ribs. No lytic or sclerotic osseous lesions demonstrated. No soft tissue masses demonstrated. CT/CT abdomen pelvis wo IV con IMPRESSION: Evaluation is partially limited by respiratory motion and mottling secondary to patient body habitus. 1. Nonspecific mild hepatosplenomegaly and hepatic steatosis. 2. Partial fatty atrophy of the pancreatic head. Potential minimal fat stranding surrounding the pancreatic head; however, this appears relatively similar to prior exams. Recommend correlation with pancreatic enzymes. 3. No additional CT abnormalities of the abdomen and pelvis to explain the patient's symptoms.
[2023-09-15 17:15] VITALS: BP 118/67; PULSE 109; RESP 22; TEMP 37.1; O2SAT 93; BMI 49.8
--- NOTE | 2023-09-15 17:15 | ED.GENADULT ---
HPI - General Adult General Chief complaint: Abdominal Pain Stated complaint: bad abd pain traveling to back, blood stool Time Seen by Provider: 09/15/23 21:21 Source: patient Mode of arrival: ambulatory Limitations: no limitations History of Present Illness HPI narrative: Patient with History of IBS, GERD comes here for upper abdominal pain started at 03:00 woke her up from sleep pain is mostly in upper abdomen radiating to the back associated with slight nausea did not feel hungry patient thought she was constipated tried to move her bowel without much response had while amount of bright red blood in the last bowel movement patient is status post cholecystectomy and hysterectomy Related Data Home Medications Medication Instructions Recorded Confirmed albuterol sulfate 2.5 mg/3 mL 1 amp inhalation Q6H PRN wheezing 08/12/21 12/27/22 (0.083 %) solution for nebulization aspirin 81 mg tablet,delayed 81 mg PO QPM 08/12/21 12/27/22 release budesonide-formoterol HFA 160 2 puff PO BID 08/12/21 12/27/22 mcg-4.5 mcg/actuation aerosol inhaler (Symbicort) diltiazem HCl 180 mg 180 mg PO QAM 08/12/21 12/27/22 capsule,extended release 24 hr ferrous sulfate 325 mg (65 mg 1 tab PO BID 08/12/21 12/27/22 iron) tablet (FeroSul) folic acid 1 mg tablet 1 mg PO QAM 08/12/21 12/27/22 furosemide 20 mg tablet 20 mg PO QAM 08/12/21 12/27/22 lamotrigine 200 mg tablet 1 tab PO BEDTIME 08/12/21 12/27/22 lidocaine 5 % topical patch 1 patch topical DAILY 08/12/21 12/27/22 lorazepam 0.5 mg tablet 0.5 mg PO BID PRN anxiety 08/12/21 12/27/22 losartan 25 mg tablet 25 mg PO QAM 08/12/21 12/27/22 metformin 500 mg tablet,extended 1,000 mg PO BIDAC 08/12/21 12/27/22 release 24 hr montelukast 10 mg tablet 10 mg PO QPM 08/12/21 12/27/22 multivitamin 1 tab PO QPM 08/12/21 12/27/22 sertraline 100 mg tablet 100 mg PO QAM 08/12/21 12/27/22 simvastatin 40 mg tablet 1 tab PO BEDTIME 08/12/21 12/27/22 tiotropium bromide 18 mcg capsule 1 cap inhalation DAILY 08/12/21 12/27/22 with inhalation device (Spiriva with HandiHaler) zolpidem 10 mg tablet 10 mg PO BEDTIME PRN Insomnia 08/12/21 12/27/22 alcohol swabs (Alcohol Prep Pads) 0 pad topical QID 06/10/22 12/27/22 blood sugar diagnostic (FreeStyle #10 ea 06/10/22 12/27/22 Lite Strips) bupropion HCl 300 mg 24 hr tablet, 300 mg PO QAM 06/10/22 12/27/22 extended release hydrochlorothiazide 12.5 mg tablet 12.5 mg PO Q OTHER DAY 06/10/22 12/27/22 lancets 33 gauge (TRUEplus Lancets) #100 ea 06/10/22 12/27/22 mepolizumab 100 mg/mL subcutaneous mg subcut Q4W 06/10/22 12/27/22 auto-injector (Nucala) mirtazapine 15 mg tablet 15 mg PO BEDTIME 06/10/22 12/27/22 cholecalciferol (vitamin D3) 50 50 mcg PO DAILY 12/15/22 12/27/22 mcg (2,000 unit) capsule (Vitamin D3) dulaglutide 0.75 mg/0.5 mL 0.75 mg subcut QWEEK 12/15/22 12/27/22 subcutaneous pen injector (Trulicity) Previous Rx's Medication Instructions Recorded nystatin 100,000 unit/gram topical 1 appl topical TID #30 grams 07/12/22 cream ondansetron 8 mg disintegrating 8 mg PO BID-TID PRN for 02/17/23 tablet nausea/vomiting #90 ea dexlansoprazole 60 mg 60 mg PO BEDTIME 90 days #90 caps 03/09/23 capsule,biphase delayed release (Dexilant) dicyclomine 10 mg capsule 10 mg PO QID #120 ea 03/09/23 [id number] 2 cap PO QID #240 caps 03/09/23 24,000-76,000-120,000 unit capsule,delayed rel (Creon) sodium,potassium,mag sulfates 17.5 480 ml PO .COMPLEX #354 mL 08/03/23 gram-3.13 gram-1.6 gram oral soln (Suprep Bowel Prep Kit) sucralfate 1 gram tablet 1 g PO DAILY #30 tabs 03/09/23 lidocaine 5 % topical patch 1 patch topical DAILY #30 ea 03/31/23 ondansetron 4 mg disintegrating 4 mg PO Q8H PRN nausea and 04/18/23 tablet vomiting #20 tabs lidocaine 4 % topical patch 1 patch topical DAILY PRN pain #30 05/23/23 (Salonpas (lidocaine)) ea tramadol 50 mg tablet 50 mg PO Q6H PRN pain #120 tabs 06/13/23 bisacodyl 5 mg tablet,delayed 10 mg (2 x 5 mg) PO BEDTIME #180 08/01/23 release tabs aluminum-mag hydroxide-simethicone 5 ml PO Q6H PRN for heartburn #355 08/10/23 200 mg-200 mg-20 mg/5 mL oral susp mL (Antacid-Antigas) gabapentin 800 mg tablet 800 mg PO TID #90 tabs 08/11/23 amoxicillin 500 mg capsule 500 mg PO Q8H #21 caps 08/21/23 nirmatrelvir 300 mg (150 mg See Rx Instructions PO .COMPLEX 08/21/23 x2)-ritonavir 100 mg tablet,dose #30 ea pack (Paxlovid) doxycycline hyclate 100 mg tablet 100 mg PO BID 7 days #14 tabs 08/23/23 prednisone 20 mg tablet 20 mg PO DAILY 7 days #7 tabs 08/23/23 abatacept 125 mg/mL subcutaneous 125 mg subcut QWEEK #4 mL 09/08/23 auto-injector (Orencia ClickJect) docusate sodium 100 mg capsule 100 mg PO DAILY #30 caps 09/12/23 hydrocortisone acetate 25 mg 25 mg [place] BID #12 ea 09/16/23 rectal suppository (Anusol-HC) Allergies Allergy/AdvReac Type Severity Reaction Status Date / Time No Known Allergies Allergy Verified 09/15/23 17:18 Review of Systems Review of Systems: Yes all other systems are reviewed and are negative PMFSH Past Medical History Medical History Sinusitis COVID-19 COVID-19 High risk medication use Colon cancer screening Controlled substance agreement signed Medication monitoring encounter Velia albicans infection Abdominal pain Lab test positive for detection of COVID-19 virus COVID-19 Low back pain Left elbow pain Nausea Abdominal bloating Obesity Bacterial pneumonia COPD (chronic obstructive pulmonary disease) Arthritis Multinodular thyroid Tubular adenoma of colon Chronic fatigue Asthma Bleeding hemorrhoid IBS (irritable bowel syndrome) Vitamin D deficiency Graves disease Hyperlipidemia HTN (hypertension) Diabetes Lumbar radiculopathy Anemia Osteoarthritis Morbid obesity GERD (gastroesophageal reflux disease) Hepatitis C Surgical History Hx of colonoscopy History of esophagogastroduodenoscopy (EGD) Hx of appendectomy Hx of cholecystectomy Family History Family History Mother Diabetes HTN (hypertension) CVD (cardiovascular disease) Heart problem Father Diabetes Brother Autism History of open heart surgery CVD (cardiovascular disease) Diabetes Son Diabetes Maternal Grandmother Diabetes Maternal Grandfather Diabetes Social History Social History Household Members: Spouse, Children and Other Housing: Apartment Are you a primary healthcare interpreter to a significant other at home: No Do you presently have visiting nurse or other home services: No Alcohol intake: never Patient Tobacco Use Status: Never used Tobacco Advance Directives: No Advance Directives Information Provided: No service: No Current occupational status: unemployed and disabled Current occupation: rt handed Physical Exam ED Vital Signs: Vital Signs - 24 hr 09/15/23 17:15 09/15/23 21:18 09/15/23 21:29 Temperature 98.7 F 98 F 98.1 F Pulse Rate 109 H 106 H 98 Respiratory Rate 22 H 20 Blood Pressure 118/67 94/65 123/56 L Pulse Oximetry 93 93 94 Oxygen Delivery Method Room Air Room Air Room Air BMI result Body Mass Index 49.8 Appearance: Alert. Oriented X3. No acute distress. Eyes: No pallor or icterus ENT: Pharynx normal. Oral Mucosa moist Neck: Normal inspection. Neck supple. CVS: Normal heart rate and rhythm. Pulses normal. Respiratory: No respiratory distress. Equal air entry bilateral, no wheezing/rales/rhonchi Abdomen: Soft diffuse upper abdominal tenderness no rebound tenderness or guarding Bowel sounds are present, no mass palpable, no CVA tenderness Skin: Skin warm and dry. Normal skin color. Normal skin turgor. Extremities: No lower extremity edema. No calf tenderness Neuro: Oriented X 3. Course Course Course Narrative: This is an RME: Additional HPI, ROS, PE not included below will be deferred to primary provider. patient is a 57-year-old female who presents emergency department for evaluation. Reports at 0300 with severe abdominal pain diffusely, radiating to the bilateral hips. Reports noting dark red blood in her stools only while having a bowel movement, as well as nausea and vomiting, chills. Denies fevers, known sick contacts. Exam: diffuse TTP Plan: Labs, urinalysis, Medications Administered Discontinued Medications Generic Name Dose Route Start Last Admin Trade Name Freq PRN Reason Stop Dose Admin Sodium Chloride 1,000 mls @ 999 mls/hr 09/15/23 21:44 09/15/23 23:14 Ns IV 09/15/23 22:44 Infused .Q1H1M ONE Infusion Morphine Sulfate 4 mg 09/15/23 21:46 09/15/23 21:56 Morphine Sulfate 4 Mg/Ml Cartridge IVPUSH 09/15/23 21:47 4 mg ONCE ONE Administration Protocol Ondansetron HCl 4 mg 09/15/23 21:46 09/15/23 21:56 Ondansetron Hcl 4 Mg/2 Ml Vial IVPUSH 09/15/23 21:47 4 mg ONCE ONE Administration Medical Decision Making Medical Decision Making [facility] Narrative: Patient's CT scan of the abdomen negative labs are stable likely patient has IBS advised to continue her medication Differential Diagnosis Differential Diagnoses: The differential diagnosis associated with the presentation includes IBS/diverticulitis/constipation/gastritis/immuno Lab Data [facility] Lab Attestation statement: I reviewed the patient's lab results. 09/15/23 19:39 09/15/23 19:39 Labs: Lab Results 09/15/23 Range/Units 19:39 WBC 17.6 H (4.8-10.8) X10*3/uL RBC 4.95 (4.20-5.50) X10*6/uL Hgb 12.4 (12.0-16.0) g/dl Hct 39.7 (37.0-47.0) % MCV 80.2 (80.0-98.0) fL MCH 25.1 L (27.0-33.0) pg MCHC 31.2 (31.0-35.0) g/dl RDW 15.3 (11.0-16.0) % Plt Count 225 (160-400) X10*3/uL MPV 10.4 (9.4-12.3) fL Immature Gran % (Auto) 0.5 H (0.0-0.4) % Neut % (Auto) 79.9 H (45-73) % Lymph % (Auto) 9.6 L (20-40) % [place] % (Auto) 9.3 (2-11) % Eos % (Auto) 0.5 (0-4) % Baso % (Auto) 0.2 (0-2) % Lymph # (Auto) 1.7 (1.2-4.9) X10*3/uL [place] # (Auto) 1.6 H (0.1-1.2) X10*3/uL Eos # (Auto) 0.1 (0.0-0.4) X10*3/uL Baso # (Auto) 0.0 (0.0-0.2) X10*3/uL Abs Immat Gran (auto) 0.08 H (0.00-0.03) X10*3/uL Absolute Neuts (auto) 14.1 H (2.0-8.3) x10*3/uL Absolute Nucleated RBC 0.000 (0.0-0.012) X10*3/uL Nucleated RBC % (auto) 0.0 (0.0-0.2) /100WBC Smear Tech's Comments VERIFIED Sodium 137 (135-145) mmol/L Potassium 4.1 (3.3-5.1) mmol/L Chloride 101 (96-108) mmol/L Carbon Dioxide 28 (22-29) mmol/L Anion Gap 12 (12-20) BUN 13 (9-16) mg/dL Creatinine 0.81 (0.5-1.4) mg/dL Estim Creat Clear Calc 105.8 Estimated GFR > 60 Random Glucose 141 H (60-115) mg/dL Calcium 9.1 (8.4-10.2) mg/dL Total Bilirubin 0.3 (0.0-1.0) mg/dL AST 15 (5-31) U/L ALT 20 (0-31) U/L Alkaline Phosphatase 91 (39-117) U/L Total Protein 7.3 (6.5-8.0) g/dL Albumin 4.0 (3.5-5.0) g/dL Lipase 12 (8-78) U/L Urine Color Yellow Urine Appearance Clear Urine pH 7.0 (5.0-9.0) Ur Specific [place] >= 1.030 H (1.005-1.025) Urine Protein Trace (Neg-Trace) mg/dL Urine Glucose (UA) Negative (Negative) mg/dL Urine Ketones Trace (Negative) mg/dL Urine Blood Negative (Negative) Urine Nitrite Negative (Negative) Ur Leukocyte Esterase Negative (Negative) Independent Interpretation I performed an independent interpretation of an: CT Scan Radiology Impression Discussion of test interpretation with radiology: I have reviewed the radiologist's reading. Discharge Plan Discharge Clinical Impression: Abdominal pain Patient Disposition: Home, Self-Care Instructions: Abdominal Pain (ED) Additional Instructions: Continue to take your dicyclomine for abdominal pain Your CT scan is negative for any acute Anusol suppository for hemorrhoids Take your stool softener Contin?e tomando [place] diciclomina para el dolor abdominal. [place] tomograf?a computarizada es negativa para cualquier enfermedad aguda. Supositorio Anusol para hemorroides. Jessica tu ablandador de heces Prescriptions: New hydrocortisone acetate [Anusol-HC] 25 mg suppository 25 mg [place] BID Qty: 12 0RF No Action nystatin 100,000 unit/gram cream 1 appl topical TID Qty: 30 0RF ondansetron 8 mg tablet,disintegrating 8 mg PO BID-TID PRN (Reason: for nausea/vomiting) Qty: 90 6RF lidocaine [Salonpas (lidocaine)] 4 % adhesive patch,medicated 1 patch topical DAILY PRN (Reason: pain) Qty: 30 2RF Rx Instructions: may leave on for up to 12 hrs bisacodyl 5 mg tablet,delayed release (DR/EC) 10 mg PO BEDTIME Qty: 180 1RF alum-mag hydroxide-simeth [Antacid-Antigas] 200-200-20 mg/5 mL suspension 5 ml PO Q6H PRN (Reason: for heartburn) Qty: 355 4RF gabapentin 800 mg tablet 800 mg PO TID Qty: 90 2RF Orencia ClickJect 125 mg/mL auto-injector 125 mg subcut QWEEK Qty: 4 1RF docusate sodium 100 mg capsule 100 mg PO DAILY Qty: 30 6RF diltiazem HCl 180 mg capsule,extended release 24hr 180 mg PO QAM sertraline 100 mg tablet 100 mg PO QAM aspirin 81 mg tablet,delayed release (DR/EC) 81 mg PO QPM lorazepam 0.5 mg tablet 0.5 mg PO BID PRN (Reason: anxiety) ferrous sulfate [FeroSul] 325 mg (65 mg iron) tablet 1 tab PO BID lidocaine 5 % adhesive patch,medicated 1 patch topical DAILY losartan 25 mg tablet 25 mg PO QAM folic acid 1 mg tablet 1 mg PO QAM montelukast 10 mg tablet 10 mg PO QPM furosemide 20 mg tablet 20 mg PO QAM zolpidem 10 mg tablet 10 mg PO BEDTIME PRN (Reason: Insomnia) metformin 500 mg tablet extended release 24 hr 1,000 mg PO BIDAC budesonide-formoterol [Symbicort] 160-4.5 mcg/actuation HFA aerosol inhaler 2 puff PO BID multivitamin Tablet 1 tab PO QPM lamotrigine 200 mg tablet 1 tab PO BEDTIME albuterol sulfate 2.5 mg /3 mL (0.083 %) solution for nebulization 1 amp inhalation Q6H PRN (Reason: wheezing) simvastatin 40 mg tablet 1 tab PO BEDTIME Spiriva with HandiHaler 18 mcg capsule, w/inhalation device 1 cap inhalation DAILY amoxicillin 500 mg capsule 500 mg PO Q8H Qty: 21 0RF Paxlovid 300 mg (150 mg x 2)-100 mg tablets,dose pack See Rx Instructions .ROUTE .COMPLEX Qty: 30 0RF Rx Instructions: take TWO 150 mg tablets of nirmatrelvir with ONE 100 mg tablet of ritonavir twice daily for 5 days cholecalciferol (vitamin D3) [Vitamin D3] 50 mcg (2,000 unit) Capsule 50 mcg PO DAILY Trulicity 0.75 mg/0.5 mL pen injector 0.75 mg subcut QWEEK ondansetron 4 mg tablet,disintegrating 4 mg PO Q8H PRN (Reason: nausea and vomiting) Qty: 20 0RF prednisone 20 mg tablet 20 mg PO DAILY 7 Days Qty: 7 0RF doxycycline hyclate 100 mg tablet 100 mg PO BID 7 Days Qty: 14 0RF Nucala 100 mg/mL auto-injector subcut Q4W hydrochlorothiazide 12.5 mg tablet 12.5 mg PO Q OTHER DAY (DME) lancets [TRUEplus Lancets] 33 gauge misc See Rx Instructions .ROUTE QID Qty: 100 Rx Instructions: As directed bupropion HCl 300 mg tablet extended release 24 hr 300 mg PO QAM mirtazapine 15 mg tablet 15 mg PO BEDTIME alcohol swabs [Alcohol Prep Pads] Pads, Medicated 0 pad topical QID (DME) FreeStyle Lite Strips Strip See Rx Instructions .ROUTE QID Qty: 10 Rx Instructions: As directed lidocaine 5 % adhesive patch,medicated 1 patch topical DAILY Qty: 30 3RF Rx Instructions: leave on most painful area for up to 12 hrs tramadol 50 mg tablet 50 mg PO Q6H PRN (Reason: pain) Qty: 120 2RF sodium,potassium,mag sulfates [Suprep Bowel Prep Kit] 17.5-3.13-1.6 gram recon soln 480 ml PO .COMPLEX Qty: 354 0RF Rx Instructions: 480 mL orally; dexlansoprazole [Dexilant] 60 mg capsule,biphase delayed releas 60 mg PO BEDTIME 90 Days Qty: 90 1RF dicyclomine 10 mg capsule 10 mg PO QID Qty: 120 6RF Creon 24,000-76,000 -120,000 unit capsule,delayed release(DR/EC) 2 cap PO QID Qty: 240 6RF sucralfate 1 gram tablet 1 g PO DAILY Qty: 30 6RF Hold Instructions: Doctor's Order Interventions: ED Discharge Assessment Last Done: 09/16/23 00:57 Discharge Date/Time: 09/16/23 00:58 Print Language: Panamanian
--- NOTE | 2023-09-15 19:44 | MHC.EDTECH ---
PATIENT BLOOD DRAWN AND URINE SAMPLE COLLECTED AND SENT TO LAB .
[2023-09-15 19:45] LABS: Basophils Percent Auto 0.2 % (0-2); Eosinophils Absolute Auto 0.1 X10*3/uL (0.0-0.4); Eosinophils Percent Auto 0.5 % (0-4); Hematocrit 39.7 % (37.0-47.0); Hemoglobin 12.4 g/dl (12.0-16.0); Imm Gran Abs Auto 0.08 X10*3/uL (0.00-0.03); Imm Gran Pct Auto 0.5 % (0.0-0.4); Lymphocytes Absolute Auto 1.7 X10*3/uL (1.2-4.9); Lymphocytes Percent Auto 9.6 % (20-40); MANUAL DIFF FLAG SCAN; Mean Corpuscular HGB Conc 31.2 g/dl (31.0-35.0); Mean Corpuscular Hemoglobin 25.1 pg (27.0-33.0); Mean Corpuscular Volume 80.2 fL (80.0-98.0); Mean Platelet Volume 10.4 fL (9.4-12.3); Monocytes Absolute Auto 1.6 X10*3/uL (0.1-1.2); Monocytes Percent Auto 9.3 % (2-11); Neutrophils Absolute Auto 14.1 x10*3/uL (2.0-8.3); Neutrophils Percent Auto 79.9 % (45-73); Platelet Count 225 X10*3/uL (160-400); Red Blood Count 4.95 X10*6/uL (4.20-5.50); Red Cell Distribution Width 15.3 % (11.0-16.0); SCAN SMEAR FLAG 1; White Blood Count 17.6 X10*3/uL (4.8-10.8)
[2023-09-15 19:46] LABS: Appearance Urine Clear; Color Urine Yellow; Glucose Urine UA Negative (Negative); Leukocyte Esterase Urine Negative (Negative); Nitrite Urine Negative (Negative); Specific Gravity - Urine >= 1.030 (1.005-1.025); Urine Blood Negative (Negative); Urine Ketones Trace mg/dL (Negative); Urine Protein Trace mg/dL (Neg-Trace)
[2023-09-15 19:58] LABS: Alanine Aminotransferase 20 U/L (0-31); Alkaline Phosphatase 91 U/L (39-117); Anion Gap 12 (12-20); Aspartate Amino Transferase 15 U/L (5-31); Bilirubin Total 0.3 mg/dL (0.0-1.0); Blood Urea Nitrogen 13 mg/dL (9-16); Calcium 9.1 mg/dL (8.4-10.2); Carbon Dioxide 28 mmol/L (22-29); Chloride 101 mmol/L (96-108); Creatinine Clr Calc Pharmacy 105.8; Estimated Glomerular Filt Rate > 60; Glucose Random 141 mg/dL (60-115); Lipase 12 U/L (8-78); Potassium 4.1 mmol/L (3.3-5.1); Sodium 137 mmol/L (135-145); Total Protein 7.3 g/dL (6.5-8.0)
[2023-09-15 20:02] LABS: SLIDE REVIEW VERIFIED
[2023-09-15 21:18] VITALS: BP 94/65; PULSE 106; RESP 20; TEMP 36.6; O2SAT 93
[2023-09-15 21:29] VITALS: BP 123/56; PULSE 98; TEMP 36.7; O2SAT 94
[2023-09-15] MEDS: 0.9 % Sodium Chloride 1,000 ML 999 ML IV (21:56)
[2023-09-15] MEDS: Morphine Sulfate 4 MG/ML CARTRIDGE IVPUSH (21:56)
[2023-09-15] MEDS: ondansetron HCL 4 MG/2 ML VIAL IVPUSH (21:56)
== END 2023-09-16 00:58 | disposition home or self-care (01) ==
PROVIDERS: Nurse Practitioner Family; Emergency Provider Internal Medicine; PCP Internal Medicine
DX: R10.10 Upper abdominal pain, unspecified (principal); Z90.49 Acquired absence of other specified parts of digestive tract; Z90.710 Acquired absence of both cervix and uterus
CPT/HCPCS: 36415; 74176; 80053; 81003; 83690; 85025; 96361; 96374; 96375; 99284; J2270; J2405

== ENCOUNTER 2023-09-26 10:28 | Outpatient (REF) | payer MEDICARE, MEDICAID, SELFPAY ==
[2023-09-26 11:22] LABS: C Reactive Protein 3.46 mg/dL (< or = 0.50)
[2023-09-26 11:51] LABS: Erythrocyte Sedimentation Rate 33 MM/HR (0-20)
== END 2023-09-26 10:29 | disposition home or self-care (01) ==
LOC: HO.10HDL 10:28
PROVIDERS: Visit Provider Student in an Organized Health Care Education/Training Program
DX: M05.9 Rheumatoid arthritis with rheumatoid factor, unspecified (principal)
CPT/HCPCS: 36415; 85652; 86140

== ENCOUNTER 2023-09-27 08:07 | Outpatient (AMB) | payer MEDICARE, MEDICAID, SELFPAY ==
[2023-09-27 08:12] VITALS: BP 118/84; PULSE 91; TEMP 36.1; O2SAT 94; BMI 47.0
--- NOTE | 2023-09-27 08:12 | A.OFFVIS_ITS ---
Intake Vital Signs 09/27/23 08:12 Height 5 ft 4 in Weight 274 lb 0.553 oz BMI 47.0 BP 118/84 Blood Pressure Location Lt brachial Position Sitting Pulse 91 Pulse Source Pulse Oximeter Temp 97.0 F Temp Source Skin Pulse Oximetry (%) 94 Oxygen Delivery Method Room Air Intake Visit Reasons: RA Intake Note: Patient last seen 06/13/23 presents today for follow up and test results. Hazard Mitigation Officer Required: Yes Hazard Mitigation Officer Language: Bench Repair Technician Name: Cheko [id number] Information Interpreted: clinical only Allergies No Known Allergies Allergy (Verified 09/27/23 08:17) Medication List - Last Reconciled 09/27/23 by Didier Mi MD abatacept (Orencia ClickJect) 125 mg subcut QWEEK albuterol sulfate 1 amp inhalation Q6H PRN alcohol swabs (Alcohol Prep Pads) 0 pad topical QID alum-mag hydroxide-simeth 200-200-20 mg/5 mL (Antacid-Antigas) 5 mL PO Q6H PRN aspirin 81 mg PO QPM bisacodyl 10 mg (2 x 5 mg) PO BEDTIME blood sugar diagnostic (FreeStyle Lite Strips) As directed budesonide-formoterol 160-4.5 mcg/actuation (Symbicort) 2 puffs PO BID bupropion HCl 300 mg PO QAM cholecalciferol (vitamin D3) (Vitamin D3) 50 mcg PO DAILY dexlansoprazole (Dexilant) 60 mg PO BEDTIME 90 days dicyclomine 10 mg PO QID diltiazem HCl 180 mg PO QAM docusate sodium 100 mg PO DAILY doxycycline hyclate 100 mg PO BID 7 days dulaglutide (Trulicity) 0.75 mg subcut QWEEK ferrous sulfate (FeroSul) 1 tab PO BID folic acid 1 mg PO QAM furosemide 20 mg PO QAM gabapentin 800 mg PO TID hydrochlorothiazide 12.5 mg PO Q OTHER DAY hydrocortisone acetate (Anusol-HC) 25 mg [place] BID lamotrigine 1 tab PO BEDTIME lancets (TRUEplus Lancets) As directed lidocaine 4% (Salonpas (lidocaine)) 1 patch topical DAILY PRN lidocaine 5% 1 patch topical DAILY byokcs-juscaelh-ggpvsdq 24,000-76,000 -120,000 unit (Creon) 2 caps PO QID lorazepam 0.5 mg PO BID PRN losartan 25 mg PO QAM mepolizumab (Nucala) mg subcut Q4W metformin ER 1,000 mg PO BIDAC mirtazapine 30 mg PO BEDTIME montelukast 10 mg PO QPM multivitamin 1 tab PO QPM nystatin 1 appl topical TID ondansetron 8 mg PO BID-TID PRN prednisone 20 mg PO DAILY 7 days sertraline 100 mg PO QAM simvastatin 1 tab PO BEDTIME sodium,potassium,mag sulfates 17.5-3.13-1.6 gram (Suprep Bowel Prep Kit) 480 mL orally; sucralfate 1 g PO DAILY tiotropium bromide (Spiriva with HandiHaler) 1 cap inhalation DAILY tramadol 50 mg PO Q6H PRN zolpidem 10 mg PO BEDTIME PRN HPI HPI Comments History of Present Illness Details 57yoF presents for follow-up of seroposi tive RA (RF- CCP ++). After last visit, patient was started on Actemra. She took it for about 2 months then her insurance changed. Actemra was denied. She was switched to Orencia. Orencia was just approved and patient received her 1st dose last week. She was without DMARDs for approximately 2 months. She received her 1st Orencia dose last . She continues to have pain in her wrists knuckles, left knee Of note patient presented to the ER twice over the last 2 months for COVID infection and sinusitis. She was not on Actemra or Orencia at that time [facility] Medical History Sinusitis COVID-19 COVID-19 High risk medication use Colon cancer screening Controlled substance agreement signed Medication monitoring encounter Velia albicans infection Abdominal pain Lab test positive for detection of COVID-19 virus COVID-19 Low back pain Left elbow pain Nausea Abdominal bloating Obesity Bacterial pneumonia COPD (chronic obstructive pulmonary disease) Arthritis Multinodular thyroid Tubular adenoma of colon Chronic fatigue Asthma Bleeding hemorrhoid IBS (irritable bowel syndrome) Vitamin D deficiency Graves disease Hyperlipidemia HTN (hypertension) Diabetes Lumbar radiculopathy Anemia Osteoarthritis Morbid obesity GERD (gastroesophageal reflux disease) Hepatitis C Surgical History Hx of colonoscopy History of esophagogastroduodenoscopy (EGD) Hx of appendectomy Hx of cholecystectomy Family History Mother Diabetes HTN (hypertension) CVD (cardiovascular disease) Heart problem Father Diabetes Brother Autism History of open heart surgery CVD (cardiovascular disease) Diabetes Son Diabetes Maternal Grandmother Diabetes Maternal Grandfather Diabetes Social History Household Members: Spouse, Children and Other Housing: Apartment Are you a primary care trainer to a significant other at home: No Do you presently have visiting nurse or other home services: No Alcohol intake: never Patient Tobacco Use Status: Never used Tobacco service: No Current occupational status: unemployed and disabled Current occupation: rt handed Review of Systems Musc Reports back pain, Reports arthralgias, Reports joint swelling and Reports stiffness Physical Exam Vital Signs: Last Vital Signs Temp 97.0 F 09/27/23 08:12 Pulse 91 09/27/23 08:12 BP 118/84 09/27/23 08:12 Pulse Ox 94 09/27/23 08:12 Oxygen Delivery Method Room Air 09/27/23 08:12 BMI result Body Mass Index 47.0 Const General: cooperative and comfortable Nutritional Appearance: obese morbidly obese Orientation/consciousness: patient oriented x3 Limitations: no limitations HEENT Head: Yes normocephalic and Yes atraumatic Resp Effort & Inspection: normal respiratory effort and able to speak in complete sentences Neuro General: patient oriented x3 Extrem Other: Bilateral wrist tenderness to palpation and pain with full flexion extension Bilateral diffuse MCP, PIP, DIP tenderness Heberden's nodes both hands Numerous fibromyalgia tender points Osteoarthritic changes of both feet Left knee crepitus Assessment & Plan Assessment & Plan (1) Seropositive rheumatoid arthritis: Comment: -ve ++CCP. erosive Methotrexate - 09/2018 -placed on hold 04/2021, discontinued due to anemia. Humira: July 2020-to 06/2023 ineffective Actemra 06/2023-08/2023 DC due to ins change Orencia 09/2023 Code(s): M05.9 - Rheumatoid arthritis with rheumatoid factor, unspecified Plan: This is a 57-year-old female with seropositive RA returns for follow-up. Her labs have shown persistently elevated inflammatory markers. This is at least partly due to her obesity and other chronic conditions. Patient was switched to Actemra 06/2023, but her insurance changed and it was no longer approved. Orencia was approved and Patient just started Orencia last week. Continue with weekly Orencia Labs before next visit in 3 months (2) Medication monitoring encounter: Code(s): Z51.81 - Encounter for therapeutic drug level monitoring Plan: Patient is on numerous psychiatry medications and pain medication. I discussed reducing the tramadol dose to 3 tabs a day. Patient states that the tramadol dose currently isn't enough and she has to use patches to control the pain. We discussed the drug interactions. Patient however has been stable on her current combination of meds. Can continue tramadol 50 mg q.i.d. as needed (3) High risk medication use: Code(s): Z79.899 - Other middle or intermediate school principal (current) drug therapy Plan: Patient was on Humira and Nucala For about 2 years ago. There were no significant infections. Now we are switching to Orencia We will monitor patient carefully for any signs of infection (4) Hepatitis C: Code(s): B19.20 - Unspecified viral hepatitis C without hepatic coma Qualifiers: Viral hepatitis chronicity: chronic Hepatic coma status: without hepatic coma Qualified Code(s): B18.2 - Chronic viral hepatitis C Plan: Patient had a positive hepatitis-C viral load back in 2014, they hepatitis C viral lower cleared without treatment. Will continue to monitor her hepatitis-C viral load Plan I spent 46 minutes reviewing patient's chart, evaluating patient, ordering diagnostic workup, counseling patient and documenting in the chart Orders: Orders Comprehensive Met. Panel 3 Months M05.9 - Rheumatoid arthritis with rheumatoid factor, unspecified C Reactive Protein 3 Months M05.9 - Rheumatoid arthritis with rheumatoid factor, unspecified Complete Blood Count Auto Diff 3 Months M05.9 - Rheumatoid arthritis with rheumatoid factor, unspecified Erythrocyte Sedimentation Rate 3 Months M05.9 - Rheumatoid arthritis with rheumatoid factor, unspecified Hepatitis C Viral Load 3 Months B19.20 - Unspecified viral hepatitis C without hepatic coma Medications: Refilled gabapentin 800 mg PO TID 90 tabs 2RF M54.5 - Low back pain Discontinued ondansetron Discontinued Reason: Patient no longer taking 4 mg PO Q8H PRN 20 tabs 0RF nausea and vomiting Coding Level of Care Code Est Pt Level 4 (34844) Diagnoses Seropositive rheumatoid arthritis M05.9 Medication monitoring encounter Z51.81 High risk medication use Z79.899 Chronic hepatitis C without hepatic coma B18.2 Viral hepatitis chronicity: chronic Hepatic coma status: without hepatic coma
== END 2023-09-27 08:39 | disposition home or self-care (01) ==
PROVIDERS: PCP Internal Medicine; Visit Provider Student in an Organized Health Care Education/Training Program
DX: M05.79 Rheumatoid arthritis with rheumatoid factor of multiple sites without organ or systems involvement (principal); Z51.81 Encounter for therapeutic drug level monitoring; Z79.899 Other long term (current) drug therapy; B18.2 Chronic viral hepatitis C; E66.01 Morbid (severe) obesity due to excess calories
CPT/HCPCS: 99214

== ENCOUNTER → 2023-09-27 08:07 | Outpatient (BNVA) | payer MEDICARE, MEDICAID, SELFPAY | PROVIDERS: PCP Internal Medicine; Visit Provider Student in an Organized Health Care Education/Training Program | DX: M05.9 Rheumatoid arthritis with rheumatoid factor, unspecified (principal); Z51.81 Encounter for therapeutic drug level monitoring; B18.2 Chronic viral hepatitis C; Z79.899 Other long term (current) drug therapy | CPT/HCPCS: 99212 ==

== ENCOUNTER 2023-10-04 14:41 | Outpatient (AMB) | payer MEDICARE, MEDICAID, SELFPAY ==
--- NOTE | 2023-10-04 14:53 | MHC.OFFVIS ---
Intake Vital Signs 10/04/23 14:54 Height 5 ft 4 in Weight 273 lb 5.971 oz BMI 46.9 BP 111/58 L Blood Pressure Location Lt brachial Position Sitting Intake Visit Reasons: 6 Month Follow Up Intake Note: Patient presents to in office visit today in follow up of abdominal pain. CC: Patient states she is feeling the same and states she has not been able to receive the ondansentron. Inverted Block Operator Required: Yes Accompanied by: Self / Same As Patient Allergies No Known Allergies Allergy (Verified 10/04/23 15:06) HPI 6 Month Follow Up HPI Details Assessment & Plan (1) Irritable bowel syndrome with both constipation and diarrhea: Comment: More CIC Code(s): K58.2 - Mixed irritable bowel syndrome Plan: [place] #Kathryn Live She says she cancelled multiple times because she vomited the prep. She has chronic N/V at her baseline, so she is difficult. She is already on chronic zofran. It appears that Suprep is covered so we will try this. She is on chronic Zofran as I said and we have tried her on Reglan see if she has gastroparesis in the past but she did not tolerate this medication. She continues on chronic Carafate. She is also on Dexilant and dicyclomine along with a stool softener. She used lidocaine patches in the past for her abd pain and she feel sit helped with her N/V. I will try prescribing these but getting them covered is difficult. I explained to her that it usually only covered for post herpetic neuralgia. If it is not covered she may wish to consider purchasing this tevj-izq-egybysh since now available. ROV 6 mos and after colonoscopy (2) Delayed gastric emptying: Code(s): K30 - Functional dyspepsia (3) GERD (gastroesophageal reflux disease): Code(s): K21.9 - Gastro-esophageal reflux disease without esophagitis Qualifiers: Esophagitis presence: without esophagitis Qualified Code(s): K21.9 - Gastro-esophageal reflux disease without esophagitis (4) Abdominal bloating: Code(s): R14.0 - Abdominal distension (gaseous) (5) Nausea: Code(s): R11.0 - Nausea (6) Colon cancer screening: Code(s): Z12.11 - Encounter for screening for malignant neoplasm of colon (7) Abdominal pain: Code(s): R10.9 - Unspecified abdominal pain Medications: New sodium,potassium,m ag sulfates 17.5-3 .13-1.6 gram (Supr ep Bowel Prep Kit) 480 mL orally; 3 54 mL 0RF Z12.11 - Encounter for screening for malignant neoplas m of colon lidocaine 5% le ave on most painfu l area for up to 1 2 hrs 1 patch topical D AILY 30 ea 3RF R10.9 - Unspecifie d abdominal pain Refilled dexlansoprazole (D exilant) 60 mg PO BEDTIME 90 days 90 caps 1R F dicyclomine 10 mg PO QID 120 ea 6RF docusate sodium 100 mg PO DAILY 3 0 caps 6RF pgkrhl-idrjmcee-zs ylase 24,000-76,00 0 -120,000 unit (C reon) 2 caps PO QID 240 caps 6RF sucralfate 1 g PO DAILY 30 t abs 6RF K58.2 - Mixed irri table bowel syndro me Discontinued peg 3350-electroly shan 236-22.74-6.74 -5.86 gram per [facility] office -u ntil fecal effluen t is clear Disc ontinued Reason: Doctor's Order 240 mL PO Q10M 4, 000 mL 0RF CORRESPONDENCE On 09/26/23 @ 11:52 Soila Conner Wrote To DeisyAmaya Pt is scheduled for 10/04/23 @ 2:45, she asked if you can please send her medication refill. On 09/22/23 @ 12:06 Amaya Olivas Wrote To Alix Escobar Does she have a follow up appt with me? If not, we need to make one prior to considering any refills. On 09/22/23 @ 10:46 Alix Escobar Wrote To DeisyAmaya ondansetron 8 mg disintegrating tablet - 8 mg PO BID-TID PRN 90 ea 6RF Last Rx written: 02/17/23 Amaya Olivas On 04/05/23 @ 14:35 Amaya Olivas Wrote To Violet Zacarias (2) Please call pt and advise her that we can not do colonoscopy at all since her insurance does not cover any other prep. We can consider Cologuard at her next appt. On 04/05/23 @ 13:55 Jas Zacariasssica Wrote To ASAEL Olivas contacted patient via insurance counselor# [id number] patient states she will not drink any prep as it makes her vomit, i did try to advise that it is a smalled prep, she is still refusing to schedule she wants a call back from the MD to discuss her concerns On 03/09/23 @ 08:59 Amaya Olivas Wrote To ASAEL [facility] Please reschedule colonoscopy with Suprep as the patient vomits GO lytely. TODAY'S VISIT [place] #Nasrin Almonte Needs cologuard She says she has been seen in the ER and by her PCP as she is having a new pain that starts in the mid abdomen and spreads around to her back. She also has been seeing blood in her stools. The pain is 7/10, and is constant even when she is laying and sleeping. It will also radiate down her legs. It is stabbing. She has been out of her Dexilant and zofran ? r/t PA. She has been calling and leaving messages on the w /o any reply. The pharmacy advised her that they needed a PA, but did not tell us. This is frustrating her. With discussion, she has been out of her bentyl and dexilant and creon etc, so this is likely the reason she is having this problem. I will also send a hemorrhoid cream since her PCP declined to do so. I will get a cologuard test in the interim and try to reschedule the colonoscopy with Mirlalx/bisa prep. ROV 2 weeks. [facility] Medical History Colon cancer screening Sinusitis COVID-19 COVID-19 High risk medication use Controlled substance agreement signed Medication monitoring encounter Velia albicans infection Abdominal pain Lab test positive for detection of COVID-19 virus COVID-19 Low back pain Left elbow pain Nausea Abdominal bloating Obesity Bacterial pneumonia COPD (chronic obstructive pulmonary disease) Arthritis Multinodular thyroid Tubular adenoma of colon Chronic fatigue Asthma Bleeding hemorrhoid IBS (irritable bowel syndrome) Vitamin D deficiency Graves disease Hyperlipidemia HTN (hypertension) Diabetes Lumbar radiculopathy Anemia Osteoarthritis Morbid obesity GERD (gastroesophageal reflux disease) Hepatitis C Surgical History Hx of colonoscopy History of esophagogastroduodenoscopy (EGD) Hx of appendectomy Hx of cholecystectomy Family History Mother Diabetes HTN (hypertension) CVD (cardiovascular disease) Heart problem Father Diabetes Brother Autism History of open heart surgery CVD (cardiovascular disease) Diabetes Son Diabetes Maternal Grandmother Diabetes Maternal Grandfather Diabetes Social History Household Members: Spouse, Children and Other Housing: Apartment Are you a primary care associate to a significant other at home: No Do you presently have visiting nurse or other home services: No Alcohol intake: never Patient Tobacco Use Status: Never used Tobacco service: No Current occupational status: unemployed and disabled Current occupation: rt handed Review of Systems Const Denies fatigue, Denies fever(s), Denies night sweats, Denies poor appetite and Denies weight loss ENT Reports Normal hearing present, Denies dental pain, Denies dysphagia, Denies hearing loss, Denies mouth pain, Denies odynophagia, Denies throat swelling, Denies tongue swelling and Reports other (Dentition adequate) Card Reports no additional complaints Resp Reports no additional complaints GI Details: Reports abdominal pain, Denies melena, Reports bloating, Reports hematochezia, Reports constipation, Denies GI cramping, Denies dysphagia, Denies excessive flatus, Denies early satiety, Reports heartburn, Denies diarrhea, Denies nausea, Denies odynophagia, Denies vomiting and Denies hematemesis Skin/Breast Denies pruritus, Denies lesions, Denies rash and Denies jaundice Neuro Reports Normal hearing present and Denies Abnormal speech present Endo Denies fatigue Aller/Immun Denies throat swelling and Denies tongue swelling Physical Exam Vital Signs: Last Vital Signs BP 111/58 L 10/04/23 14:54 BMI result Body Mass Index 46.9 Const General: cooperative, no acute distress, well developed and well groomed Nutritional Appearance: well nourished and obese morbidly obese Orientation/consciousness: oriented to person, oriented to place and oriented to time Limitations: language barrier and other limitations (educations) HEENT Head: Yes normocephalic and Yes atraumatic Eyes General: appearance normal, both eyes and all related structures Pupils: Equal, round and reactive pupils present Neck Neck: Yes normal visual inspection and Yes no lymphadenopathy Thyroid: Thyroid normal Resp Effort & Inspection: normal respiratory effort and able to speak in complete sentences Auscultation: clear to auscultation bilaterally Cardio Rate: regular rate Rhythm: regular rhythm Heart sounds: Normal, physiologic split S2 sound present Peripheral pulses: radial pulses present and posterior tibial pulses present GI Inspection: No distended, Yes Abdominal panniculus present and Yes obesity Palpation (GI): Soft to palpation, nontender, no guarding, not rigid and No hepatosplenomegaly present Percussion: Yes normal to percussion Auscultation: normal bowel sounds Rectal Exam - Female: deferred Skin General skin exam: no rashes or lesions noted, turgor normal, skin not dry, no jaundice, No spider nevi and no striae Rashes: no rashes Nails: normal Neuro General: oriented to person, oriented to place and oriented to time Cranial nerves: Yes Equal, round and reactive pupils present and Yes Normal hearing present Speech: No Abnormal speech present Extrem General: Yes normal to inspection, No clubbing, No cyanosis and No edema Psych Appearance: grossly normal and well kempt Mental Status: mental status grossly normal Speech and movement: Normal speech and movement present Affect: normal affect Attitude: cooperative Thought process: Normal thought process present and not confabulating Thought content: Normal thought content present Insight: Limited insight present (Psych) Judgement: Limited judgement present (Psych) Assessment & Plan Assessment & Plan (1) Irritable bowel syndrome with both constipation and diarrhea: Comment: More CIC Code(s): K58.2 - Mixed irritable bowel syndrome (2) Delayed gastric emptying: Code(s): K30 - Functional dyspepsia (3) GERD (gastroesophageal reflux disease): Code(s): K21.9 - Gastro-esophageal reflux disease without esophagitis Qualifiers: Esophagitis presence: without esophagitis Qualified Code(s): K21.9 - Gastro-esophageal reflux disease without esophagitis (4) Colon cancer screening: Code(s): Z12.11 - Encounter for screening for malignant neoplasm of colon Plan [place] Vitor Live Needs cologuard She says she has been seen in the ER and by her PCP as she is having a new pain that starts in the mid abdomen and spreads around to her back. She also has been seeing blood in her stools. The pain is 7/10, and is constant even when she is laying and sleeping. It will also radiate down her legs. It is stabbing. She has been out of her Dexilant and zofran ? r/t PA. She has been calling and leaving messages on the w /o any reply. The pharmacy advised her that they needed a PA, but did not tell us. This is frustrating her. With discussion, she has been out of her bentyl and dexilant and creon etc, so this is likely the reason she is having this problem. I will also send a hemorrhoid cream since her PCP declined to do so. I will get a cologuard test in the interim and try to reschedule the colonoscopy with Mirlalx/bisa prep. ROV 2 weeks. Medications: New hydrocortisone 2.5% (Proctosol HC) BE SURE TO INCLUDE RECTAL APPICATOR!! 1 appl DE BID 30 grams 6RF hemorrhoids K64.9 - Unspecified hemorrhoids Changed From tkzmup-vpauromx-uhzcqpc 24,000-76,000 -120,000 unit 2 caps PO QID 240 caps 6RF To hnanoz-edjvllyl-exdbieh 24,000-76,000 -120,000 unit (Creon) 2 caps PO QID 240 caps 6RF Refilled dexlansoprazole (Dexilant) 60 mg PO BEDTIME 90 caps 1RF 90 days docusate sodium 100 mg PO DAILY 30 caps 6RF ondansetron 8 mg PO BID-TID PRN 90 ea 6RF for nausea/vomiting dicyclomine 10 mg PO QID 120 ea 6RF sucralfate 1 g PO DAILY 30 tabs 6RF K58.2 - Mixed irritable bowel syndrome Discontinued doxycycline hyclate Discontinued Reason: Patient no longer taking 100 mg PO BID 7 days 14 tabs 0RF hydrocortisone acetate Discontinued Reason: Insurance Denied 25 mg DE BID 12 ea 0RF sodium,potassium,mag sulfates 17.5-3.13-1.6 gram Discontinued Reason: Doctor's Order 480 mL orally; 354 mL 0RF Z12.11 - Encounter for screening for malignant neoplasm of colon Coding Level of Care Code Est Pt Level 4 (41916) Diagnoses Irritable bowel syndrome with both constipation and diarrhea K58.2 Delayed gastric emptying K30 GERD (gastroesophageal reflux disease) K21.9 Esophagitis presence: without esophagitis Colon cancer screening Z12.11
[2023-10-04 14:54] VITALS: BP 111/58; BMI 46.9
== END 2023-10-04 15:38 | disposition home or self-care (01) ==
PROVIDERS: PCP Internal Medicine; Visit Provider Nurse Practitioner
DX: K58.2 Mixed irritable bowel syndrome (principal); K30 Functional dyspepsia; K21.9 Gastro-esophageal reflux disease without esophagitis; Z12.11 Encounter for screening for malignant neoplasm of colon
CPT/HCPCS: 99214

== ENCOUNTER → 2023-10-04 14:41 | Outpatient (BNVA) | payer MEDICARE, MEDICAID, SELFPAY | PROVIDERS: PCP Internal Medicine; Visit Provider Nurse Practitioner | DX: Z12.11 Encounter for screening for malignant neoplasm of colon (principal); K58.2 Mixed irritable bowel syndrome; K30 Functional dyspepsia; K21.9 Gastro-esophageal reflux disease without esophagitis | CPT/HCPCS: 99212 ==

== ENCOUNTER 2023-12-26 08:16 | Outpatient (REF) | payer MEDICARE, MEDICAID, SELFPAY ==
[2023-12-26 09:21] LABS: MANUAL DIFF FLAG NO
[2023-12-26 09:47] LABS: Basophils Absolute Auto 0.1 X10*3/uL (0.0-0.2); Basophils Percent Auto 0.5 % (0-2); Eosinophils Absolute Auto 0.2 X10*3/uL (0.0-0.4); Eosinophils Percent Auto 1.5 % (0-4); Hematocrit 39.2 % (37.0-47.0); Hemoglobin 11.9 g/dl (12.0-16.0); Imm Gran Abs Auto 0.05 X10*3/uL (0.00-0.03); Imm Gran Pct Auto 0.5 % (0.0-0.4); Lymphocytes Absolute Auto 1.6 X10*3/uL (1.2-4.9); Lymphocytes Percent Auto 16.1 % (20-40); Mean Corpuscular HGB Conc 30.4 g/dl (31.0-35.0); Mean Corpuscular Hemoglobin 25.2 pg (27.0-33.0); Mean Corpuscular Volume 83.1 fL (80.0-98.0); Mean Platelet Volume 10.7 fL (9.4-12.3); Monocytes Absolute Auto 0.7 X10*3/uL (0.1-1.2); Neutrophils Absolute Auto 7.4 x10*3/uL (2.0-8.3); Neutrophils Percent Auto 74.4 % (45-73); Platelet Count 254 X10*3/uL (160-400); Red Blood Count 4.72 X10*6/uL (4.20-5.50); Red Cell Distribution Width 14.5 % (11.0-16.0); White Blood Count 9.9 X10*3/uL (4.8-10.8)
[2023-12-26 10:03] LABS: Alanine Aminotransferase 22 U/L (0-31); Albumin Level 3.9 g/dL (3.5-5.0); Alkaline Phosphatase 111 U/L (39-117); Anion Gap 16 (12-20); Aspartate Amino Transferase 17 U/L (5-31); Bilirubin Total 0.2 mg/dL (0.0-1.0); Blood Urea Nitrogen 11 mg/dL (9-16); C Reactive Protein 2.94 mg/dL (< or = 0.50); Calcium 9.7 mg/dL (8.4-10.2); Carbon Dioxide 29 mmol/L (22-29); Chloride 99 mmol/L (96-108); Estimated Glomerular Filt Rate > 60; Glucose Random 276 mg/dL (60-115); Sodium 140 mmol/L (135-145); Total Protein 7.7 g/dL (6.5-8.0)
[2023-12-26 10:34] LABS: Erythrocyte Sedimentation Rate 30 MM/HR (0-20)
[2023-12-28 09:09] LABS: HCV Log PCR <1.18 NOT DETECTED Log IU/mL (NOT DETECTED); HepC Viral Load <15 NOT DETECTED IU/mL (NOT DETECTED)
== END 2023-12-26 08:17 | disposition home or self-care (01) ==
LOC: HO.LAB 08:16
PROVIDERS: PCP Internal Medicine; Visit Provider Student in an Organized Health Care Education/Training Program
DX: M05.9 Rheumatoid arthritis with rheumatoid factor, unspecified (principal); B19.20 Unspecified viral hepatitis C without hepatic coma
CPT/HCPCS: 36415; 80053; 85025; 85652; 86140; 87522; 99212

== ENCOUNTER 2023-12-26 08:16 | Outpatient (AMB) | payer MEDICARE, MEDICAID, SELFPAY ==
--- NOTE | 2023-12-26 08:17 | MHC.OFFVIS ---
Vital Signs 12/26/23 08:19 Height 5 ft 4 in Weight 280 lb 3.32 oz BMI 48.1 BP 118/72 Blood Pressure Location Rt brachial Position Sitting Pulse 92 Pulse Source Pulse Oximeter Pulse Oximetry (%) 97 Oxygen Delivery Method Room Air Intake Visit Reasons: RA/CM Intake Note: Patient last seen 09/27/23 presents today for follow up and test results. Pt did not complete labs Reports pain and stiffness in hands, hips and legs. 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 Name: [id number] Accompanied by: Self / Same As Patient Allergies No Known Allergies Allergy (Verified 12/26/23 08:29) Medication List - Last Reconciled 12/26/23 by Didier Mi MD albuterol sulfate 1 amp inhalation Q6H PRN alcohol swabs (Alcohol Prep Pads) 0 pad topical QID alum-mag hydroxide-simeth 200-200-20 mg/5 mL (Antacid-Antigas) 5 mL PO Q6H PRN aspirin 81 mg PO QPM bisacodyl 10 mg (2 x 5 mg) PO BEDTIME blood sugar diagnostic (FreeStyle Lite Strips) As directed budesonide-formoterol 160-4.5 mcg/actuation (Symbicort) 2 puffs PO BID bupropion HCl XL 300 mg PO QAM cholecalciferol (vitamin D3) (Vitamin D3) 50 mcg PO DAILY dexlansoprazole (Dexilant) 60 mg PO BEDTIME 90 days dicyclomine 10 mg PO QID diltiazem HCl CD 180 mg PO QAM docusate sodium 100 mg PO DAILY dulaglutide (Trulicity) 0.75 mg subcut QWEEK ferrous sulfate (FeroSul) 1 tab PO BID folic acid 1 mg PO QAM furosemide 20 mg PO QAM gabapentin 800 mg PO TID hydrochlorothiazide 12.5 mg PO Q OTHER DAY hydrocortisone 2.5% (Proctosol HC) 1 appl NE BID lamotrigine 1 tab PO BEDTIME lancets (TRUEplus Lancets) As directed lidocaine 4% (Salonpas (lidocaine)) 1 patch topical DAILY PRN [id number] 24,000-76,000 -120,000 unit (Creon) 2 caps PO QID lorazepam 0.5 mg PO BID PRN losartan 25 mg PO QAM mepolizumab (Nucala) mg subcut Q4W metformin ER 1,000 mg PO BIDAC mirtazapine 30 mg PO BEDTIME montelukast 10 mg PO QPM multivitamin 1 tab PO QPM nystatin 1 appl topical TID ondansetron 8 mg PO BID-TID PRN Orencia ClickJect (abatacept) 125 mg subcut QWEEK NS prednisone 20 mg PO DAILY 7 days sertraline 100 mg PO QAM simvastatin 1 tab PO BEDTIME sucralfate 1 g PO DAILY tiotropium bromide (Spiriva with HandiHaler) 1 cap inhalation DAILY tramadol 50 mg PO Q6H PRN zolpidem 10 mg PO BEDTIME PRN HPI Comments Details: 58yoF presents for follow-up of seropositive RA (RF- CCP ++). On Orencia weekly. Well-tolerated. Does not report any side effects. She states that she continues to have pain in her wrists, across her MCPs, usually worse in the morning and associated with swelling. Gets intermittent pain in her knees as well. Otherwise doing about the same overall. [facility] Medical History (Updated 12/26/23 @ 08:49 by Didier Mi MD) Low back pain Colon cancer screening Sinusitis COVID-19 COVID-19 High risk medication use Controlled substance agreement signed Medication monitoring encounter Velia albicans infection Abdominal pain Lab test positive for detection of COVID-19 virus COVID-19 Left elbow pain Nausea Abdominal bloating Obesity Bacterial pneumonia COPD (chronic obstructive pulmonary disease) Arthritis Multinodular thyroid Tubular adenoma of colon Chronic fatigue Asthma Bleeding hemorrhoid IBS (irritable bowel syndrome) Vitamin D deficiency Graves disease Hyperlipidemia HTN (hypertension) Diabetes Lumbar radiculopathy Anemia Osteoarthritis Morbid obesity GERD (gastroesophageal reflux disease) Hepatitis C Surgical History Hx of colonoscopy History of esophagogastroduodenoscopy (EGD) Hx of appendectomy Hx of cholecystectomy Family History Mother Diabetes HTN (hypertension) CVD (cardiovascular disease) Heart problem Father Diabetes Brother Autism History of open heart surgery CVD (cardiovascular disease) Diabetes Son Diabetes Maternal Grandmother Diabetes Maternal Grandfather Diabetes Social History Household Members: Spouse, Children and Other Housing: Apartment Are you a primary manager care management to a significant other at home: No Do you presently have visiting nurse or other home services: No Alcohol intake: never Patient Tobacco Use Status: Never used Tobacco service: No Current occupational status: unemployed and disabled Current occupation: rt handed Review of [employer] Reports back pain, Reports arthralgias, Reports joint swelling and Reports stiffness Physical Exam Vital Signs: Last Vital Signs Pulse 92 12/26/23 08:19 BP 118/72 12/26/23 08:19 Pulse Ox 97 12/26/23 08:19 Oxygen Delivery Method Room Air 12/26/23 08:19 BMI result Body Mass Index 48.1 Const General: cooperative and comfortable Nutritional Appearance: obese morbidly obese Orientation/consciousness: patient oriented x3 Limitations: no limitations HEENT Head: Yes normocephalic and Yes atraumatic Resp Effort & Inspection: normal respiratory effort and able to speak in complete sentences Neuro General: patient oriented x3 Extrem Other: Bilateral wrist tenderness to palpation and pain with full flexion extension Bilateral diffuse MCP, tenderness No PIP or DIP tenderness Heberden's nodes both hands Few fibromyalgia tender points Osteoarthritic changes of both feet Left knee crepitus Assessment & Plan Assessment & Plan (1) Seropositive rheumatoid arthritis: Comment: -ve ++CCP. erosive Methotrexate - 09/2018 -placed on hold 04/2021, discontinued due to anemia. Humira: July 2020-to 06/2023 ineffective Actemra 06/2023-08/2023 DC due to ins change Orencia 09/2023 Code(s): M05.9 - Rheumatoid arthritis with rheumatoid factor, unspecified Category: Medical Plan: This is a 58-year-old female with seropositive RA returns for follow-up. On Orencia weekly. Doing better overall with less tender joints. Continue with weekly Orencia Labs before next visit in 3 months (2) Medication monitoring encounter: Code(s): Z51.81 - Encounter for therapeutic drug level monitoring Category: Medical Plan: Patient is on numerous psychiatry medications and pain medication. I discussed reducing the tramadol dose to 3 tabs a day. Patient states that the tramadol dose currently isn't enough and she has to use patches to control the pain. We discussed the drug interactions. Patient however has been stable on her current combination of meds. Can continue tramadol 50 mg q.i.d. as needed (3) High risk medication use: Code(s): Z79.899 - Other jail (current) drug therapy Category: Medical Plan: Patient was on Humira and Nucala For about 2 years ago. There were no significant infections. Now on Orencia and Nucala. We will monitor patient carefully for any signs of infection (4) Hepatitis C: Code(s): B19.20 - Unspecified viral hepatitis C without hepatic coma Category: Medical Qualifiers: Viral hepatitis chronicity: chronic Hepatic coma status: without hepatic coma Qualified Code(s): B18.2 - Chronic viral hepatitis C Plan: Patient had a positive hepatitis-C viral load back in 2015, her hepatitis C viral lower cleared without treatment. Will continue to monitor her hepatitis-C viral load (5) Low back pain: Code(s): M54.5 - Low back pain Category: Medical Qualifiers: Chronicity: chronic Back pain laterality: midline Sciatica presence: without sciatica Qualified Code(s): M54.50 - Low back pain, unspecified; G89.29 - Other chronic pain Plan: Gabapentin seems to be at least partially helpful. Continue gabapentin 800 mg t.i.d. Plan I spent 46 minutes reviewing patient's chart, evaluating patient, ordering diagnostic workup, counseling patient and documenting in the chart Orders: Orders Complete Blood Count Auto Diff 3 Months M05.9 - Rheumatoid arthritis with rheumatoid factor, unspecified Comprehensive Met. Panel 3 Months M05.9 - Rheumatoid arthritis with rheumatoid factor, unspecified C Reactive Protein 3 Months M05.9 - Rheumatoid arthritis with rheumatoid factor, unspecified Erythrocyte Sedimentation Rate 3 Months M05.9 - Rheumatoid arthritis with rheumatoid factor, unspecified Hepatitis C Viral Load 3 Months B18.2 - Chronic viral hepatitis C Medications: Refilled gabapentin 800 mg PO TID 90 tabs 2RF M54.5 - Low back pain Orencia ClickJect (abatacept) 125 mg subcut QWEEK 4 mL 2RF NS Coding Level of Care Code Est Pt Level 5 (83715) Complex EM visit Add On G2211 Diagnoses Seropositive rheumatoid arthritis M05.9 Medication monitoring encounter Z51.81 High risk medication use Z79.899 Chronic hepatitis C without hepatic coma B18.2 Viral hepatitis chronicity: chronic Hepatic coma status: without hepatic coma Chronic midline low back pain without sciatica M54.50; G89.29 Chronicity: chronic Back pain laterality: midline Sciatica presence: without sciatica
[2023-12-26 08:19] VITALS: BP 118/72; PULSE 92; O2SAT 97; BMI 48.1
== END 2023-12-26 08:43 | disposition home or self-care (01) ==
LOC: HO.RHE 08:16
PROVIDERS: PCP Internal Medicine; Visit Provider Student in an Organized Health Care Education/Training Program
DX: M05.79 Rheumatoid arthritis with rheumatoid factor of multiple sites without organ or systems involvement (principal); Z51.81 Encounter for therapeutic drug level monitoring; Z79.899 Other long term (current) drug therapy; B18.2 Chronic viral hepatitis C; M54.50 Low back pain, unspecified; G89.29 Other chronic pain
CPT/HCPCS: 99214; G2211

== ENCOUNTER 2024-01-11 09:53 | Outpatient (REF) | payer MEDICARE, MEDICAID, SELFPAY ==
[2024-01-11 14:06] LABS: MANUAL DIFF FLAG NO
[2024-01-11 14:22] LABS: Basophils Absolute Auto 0.1 X10*3/uL (0.0-0.2); Basophils Percent Auto 0.6 % (0-2); Eosinophils Absolute Auto 0.2 X10*3/uL (0.0-0.4); Eosinophils Percent Auto 1.4 % (0-4); Hematocrit 38.6 % (37.0-47.0); Hemoglobin 11.5 g/dl (12.0-16.0); Imm Gran Abs Auto 0.05 X10*3/uL (0.00-0.03); Imm Gran Pct Auto 0.5 % (0.0-0.4); Lymphocytes Absolute Auto 1.7 X10*3/uL (1.2-4.9); Lymphocytes Percent Auto 16.2 % (20-40); Mean Corpuscular HGB Conc 29.8 g/dl (31.0-35.0); Mean Corpuscular Hemoglobin 24.8 pg (27.0-33.0); Mean Corpuscular Volume 83.4 fL (80.0-98.0); Monocytes Absolute Auto 0.6 X10*3/uL (0.1-1.2); Monocytes Percent Auto 5.6 % (2-11); Neutrophils Absolute Auto 8.1 x10*3/uL (2.0-8.3); Neutrophils Percent Auto 75.7 % (45-73); Platelet Count 269 X10*3/uL (160-400); Red Blood Count 4.63 X10*6/uL (4.20-5.50); White Blood Count 10.7 X10*3/uL (4.8-10.8)
[2024-01-11 14:41] LABS: Alanine Aminotransferase 18 U/L (0-31); Albumin Level 3.8 g/dL (3.5-5.0); Alkaline Phosphatase 112 U/L (39-117); Anion Gap 17 (12-20); Aspartate Amino Transferase 15 U/L (5-31); Bilirubin Total 0.2 mg/dL (0.0-1.0); Blood Urea Nitrogen 14 mg/dL (9-16); Calcium 9.2 mg/dL (8.4-10.2); Carbon Dioxide 29 mmol/L (22-29); Chloride 99 mmol/L (96-108); Cholesterol 153 mg/dL (<200); Estimated Glomerular Filt Rate > 60; Glucose Random 262 mg/dL (60-115); HDL Cholesterol 70 mg/dL (>40); LDL Cholesterol Calculated 58 mg/dL (<100); Potassium 3.7 mmol/L (3.3-5.1); Sodium 141 mmol/L (135-145); Total Protein 7.2 g/dL (6.5-8.0); Triglycerides 126 mg/dL (<150)
[2024-01-11 14:46] LABS: TSH reflex Free T4 0.61 uIU/mL (0.32-4.0)
== END 2024-01-11 09:54 | disposition home or self-care (01) ==
LOC: HO.CHCLDS 09:53
PROVIDERS: Visit Provider Internal Medicine
DX: E11.9 Type 2 diabetes mellitus without complications (principal)
CPT/HCPCS: 36415; 80053; 80061; 84443; 85025

== ENCOUNTER 2024-03-19 10:02 | Outpatient (REF) | payer MEDICARE, MEDICAID, SELFPAY ==
[2024-03-19 10:24] LABS: MANUAL DIFF FLAG NO
[2024-03-19 11:09] LABS: Basophils Absolute Auto 0.1 X10*3/uL (0.0-0.2); Basophils Percent Auto 0.6 % (0-2); Eosinophils Absolute Auto 0.1 X10*3/uL (0.0-0.4); Eosinophils Percent Auto 1.2 % (0-4); Hematocrit 39.5 % (37.0-47.0); Hemoglobin 12.1 g/dl (12.0-16.0); Imm Gran Abs Auto 0.05 X10*3/uL (0.00-0.03); Imm Gran Pct Auto 0.5 % (0.0-0.4); Immature Retic Fraction 11.6 % (3.0-15.9); Lymphocytes Absolute Auto 1.8 X10*3/uL (1.2-4.9); Lymphocytes Percent Auto 17.5 % (20-40); Mean Corpuscular HGB Conc 30.6 g/dl (31.0-35.0); Mean Corpuscular Hemoglobin 25.4 pg (27.0-33.0); Mean Corpuscular Volume 82.8 fL (80.0-98.0); Mean Platelet Volume 10.9 fL (9.4-12.3); Monocytes Absolute Auto 0.7 X10*3/uL (0.1-1.2); Monocytes Percent Auto 7.3 % (2-11); Neutrophils Absolute Auto 7.4 x10*3/uL (2.0-8.3); Neutrophils Percent Auto 72.9 % (45-73); Platelet Count 251 X10*3/uL (160-400); Red Blood Count 4.77 X10*6/uL (4.20-5.50); Red Cell Distribution Width 14.8 % (11.0-16.0); Retic HGB Equivalent 27.5 pg (30.0-35.0); Reticulocyte Percent 1.5 % (0.5-1.8); Reticulocytes Absolute 0.073 X10*6/uL (0.026-0.095); White Blood Count 10.1 X10*3/uL (4.8-10.8)
[2024-03-19 11:47] LABS: Erythrocyte Sedimentation Rate 40 MM/HR (0-20)
[2024-03-19 12:38] LABS: Alanine Aminotransferase 17 U/L (0-31); Albumin Level 3.9 g/dL (3.5-5.0); Alkaline Phosphatase 94 U/L (39-117); Anion Gap 12 (12-20); Aspartate Amino Transferase 17 U/L (5-31); Bilirubin Total 0.3 mg/dL (0.0-1.0); Blood Urea Nitrogen 13 mg/dL (9-16); C Reactive Protein 4.94 mg/dL (< or = 0.50); Calcium 10.2 mg/dL (8.4-10.2); Carbon Dioxide 32 mmol/L (22-29); Chloride 99 mmol/L (96-108); Estimated Glomerular Filt Rate 55; Glucose Random 122 mg/dL (60-115); Iron 38 mcg/dL (30-160); Percent Iron Saturation 12 % (15-50); Potassium 3.7 mmol/L (3.3-5.1); Sodium 139 mmol/L (135-145); Total Iron Binding Capacity 323 mcg/dL (228-428); Total Protein 7.7 g/dL (6.5-8.0); Unsaturated Iron Binding 285 ug/dL
[2024-03-19 12:41] LABS: Ferritin 61 ng/mL (10-250)
[2024-03-21 08:48] LABS: HCV Log PCR <1.18 NOT DETECTED Log IU/mL (NOT DETECTED); HepC Viral Load <15 NOT DETECTED IU/mL (NOT DETECTED)
== END 2024-03-19 10:03 | disposition home or self-care (01) ==
LOC: HO.LAB 10:02
PROVIDERS: Absent Provider Internal Medicine; PCP Internal Medicine; Visit Provider Student in an Organized Health Care Education/Training Program
DX: E66.01 Morbid (severe) obesity due to excess calories (principal); M05.9 Rheumatoid arthritis with rheumatoid factor, unspecified; B18.2 Chronic viral hepatitis C
CPT/HCPCS: 36415; 80053; 82728; 83540; 85025; 85045; 85652; 86140; 87522

== ENCOUNTER 2024-03-20 08:11 | Outpatient (AMB) | payer MEDICARE, MEDICAID, SELFPAY ==
--- NOTE | 2024-03-20 08:19 | MHC.OFFVIS ---
Vital Signs 03/20/24 08:24 Height 5 ft 4 in Weight 271 lb 13.279 oz BMI 46.7 BP 116/62 Blood Pressure Location Rt brachial Position Sitting Pulse 86 Pulse Oximetry (%) 94 Oxygen Delivery Method Room Air Intake Visit Reasons: RA/CM Intake Note: Patient presents today dffor RA follow up. Contact Printer Dry Film Required: Yes Contact Printer Dry Film Name: [id number] Allergies No Known Allergies Allergy (Verified 03/20/24 08:20) Medication List - Last Reconciled 03/20/24 by Didier Mi MD albuterol sulfate 1 amp inhalation Q6H PRN alcohol swabs (Alcohol Prep Pads) 0 pad topical QID alum-mag hydroxide-simeth 200-200-20 mg/5 mL (Antacid-Antigas) 5 mL PO Q6H PRN aspirin 81 mg PO QPM bisacodyl 10 mg (2 x 5 mg) PO BEDTIME blood sugar diagnostic (FreeStyle Lite Strips) As directed budesonide-formoterol 160-4.5 mcg/actuation (Symbicort) 2 puffs PO BID bupropion HCl XL 300 mg PO QAM cholecalciferol (vitamin D3) (Vitamin D3) 50 mcg PO DAILY dexlansoprazole (Dexilant) 60 mg PO BEDTIME 90 days dicyclomine 10 mg PO QID diltiazem HCl CD 180 mg PO QAM docusate sodium (Stool Softener) 100 mg PO DAILY dulaglutide (Trulicity) 0.75 mg subcut QWEEK ferrous sulfate (FeroSul) 1 tab PO BID folic acid 1 mg PO QAM furosemide 20 mg PO QAM gabapentin 800 mg PO TID hydrochlorothiazide 12.5 mg PO Q OTHER DAY hydrocortisone 2.5% (Proctosol HC) 1 appl [place] BID lamotrigine 1 tab PO BEDTIME lancets (TRUEplus Lancets) As directed lidocaine 4% (Salonpas (lidocaine)) 1 patch topical DAILY PRN [id number]-[id number] 24,000-76,000 -120,000 unit (Creon) 2 caps PO QID lorazepam 0.5 mg PO BID PRN losartan 25 mg PO QAM mepolizumab (Nucala) mg subcut Q4W metformin ER 1,000 mg PO BIDAC mirtazapine 30 mg PO BEDTIME montelukast 10 mg PO QPM multivitamin 1 tab PO QPM nystatin 1 appl topical TID ondansetron 8 mg PO BID-TID PRN Orencia ClickJect (abatacept) 125 mg subcut QWEEK NS prednisone 20 mg PO DAILY 7 days sertraline 100 mg PO QAM simvastatin 1 tab PO BEDTIME sucralfate 1 g PO DAILY tiotropium bromide (Spiriva with HandiHaler) 1 cap inhalation DAILY tramadol 50 mg PO QID PRN zolpidem 10 mg PO BEDTIME PRN HPI Comments Details: 58yoF presents for follow-up of seropositive RA (RF- CCP ++). On Orencia weekly. Well-tolerated. Does not report any side effects. She states that she continues to have diffuse pain, especially in her thighs and knees. Otherwise, she is doing about the same [facility] Medical History Low back pain Colon cancer screening Sinusitis COVID-19 COVID-19 High risk medication use Controlled substance agreement signed Medication monitoring encounter Velia albicans infection Abdominal pain Lab test positive for detection of COVID-19 virus COVID-19 Left elbow pain Nausea Abdominal bloating Obesity Bacterial pneumonia COPD (chronic obstructive pulmonary disease) Arthritis Multinodular thyroid Tubular adenoma of colon Chronic fatigue Asthma Bleeding hemorrhoid IBS (irritable bowel syndrome) Vitamin D deficiency Graves disease Hyperlipidemia HTN (hypertension) Diabetes Lumbar radiculopathy Anemia Osteoarthritis Morbid obesity GERD (gastroesophageal reflux disease) Hepatitis C Surgical History Hx of colonoscopy History of esophagogastroduodenoscopy (EGD) Hx of appendectomy Hx of cholecystectomy Family History Mother Diabetes HTN (hypertension) CVD (cardiovascular disease) Heart problem Father Diabetes Brother Autism History of open heart surgery CVD (cardiovascular disease) Diabetes Son Diabetes Maternal Grandmother Diabetes Maternal Grandfather Diabetes Social History Household Members: Spouse, Children and Other Housing: Apartment Are you a primary caregivers homecare to a significant other at home: No Do you presently have visiting nurse or other home services: No Alcohol intake: never Patient Tobacco Use Status: Never used Tobacco service: No Current occupational status: unemployed and disabled Current occupation: rt handed Review of Systems [facility] [place] back pain, Reports arthralgias and Reports stiffness Physical Exam Vital Signs: Last Vital Signs Pulse 86 03/20/24 08:24 BP 116/62 03/20/24 08:24 Pulse Ox 94 03/20/24 08:24 Oxygen Delivery Method Room Air 03/20/24 08:24 BMI result Body Mass Index 46.7 Const General: cooperative and comfortable Nutritional Appearance: obese morbidly obese Orientation/consciousness: patient oriented x3 Limitations: no limitations HEENT Head: Yes normocephalic and Yes atraumatic Resp Effort & Inspection: normal respiratory effort and able to speak in complete sentences Auscultation: clear to auscultation bilaterally Cardio Rate: regular rate Rhythm: regular rhythm Neuro General: patient oriented x3 Extrem Other: No swollen joints Bilateral wrist tenderness to palpation and pain with full flexion extension Bilateral diffuse MCP, tenderness Numerous fibromyalgia tender points No PIP or DIP tenderness Heberden's nodes both hands Osteoarthritic changes of both feet Bilateral knee pain with flexion-extension More pronounced on the left Left knee crepitus Assessment & Plan Assessment & Plan (1) Seropositive rheumatoid arthritis: Comment: -ve ++CCP. erosive Methotrexate - 09/2018 -placed on hold 04/2021, discontinued due to anemia. Humira: July 2020-to 06/2023 ineffective Actemra 06/2023-08/2023 DC due to ins change Orencia 09/2023 Code(s): M05.9 - Rheumatoid arthritis with rheumatoid factor, unspecified Category: Medical Plan: This is a 58-year-old female with seropositive RA returns for follow-up. On 125 mg Orencia weekly. Doing well overall with no active synovitis. Inflammatory markers are chronically elevated and not likely due to active RA, may be related to obesity and other comorbidities Continue with weekly Orencia Labs before next visit in 4 months (2) Medication monitoring encounter: Code(s): Z51.81 - Encounter for therapeutic drug level monitoring Category: Medical Plan: Patient is on numerous psychiatry medications and pain medication. I discussed reducing the tramadol dose to TID. Patient states that the tramadol dose currently isn't enough and she has to use patches to control the pain. We discussed the drug interactions. Patient however has been stable on her current combination of meds. Can continue tramadol 50 mg q.i.d. as needed (3) High risk medication use: Code(s): Z79.899 - Other snf (current) drug therapy Category: Medical Plan: Patient was on Humira and Nucala For about 2 years ago. There were no significant infections. Now on Orencia and Nucala. We will monitor patient carefully for any signs of infection (4) Hepatitis C: Code(s): B19.20 - Unspecified viral hepatitis C without hepatic coma Category: Medical Qualifiers: Viral hepatitis chronicity: chronic Hepatic coma status: without hepatic coma Qualified Code(s): B18.2 - Chronic viral hepatitis C Plan: Patient had a positive hepatitis-C viral load back in 2014, her hepatitis C viral lower cleared without treatment. Will continue to monitor her hepatitis-C viral load periodically (5) Bilateral primary osteoarthritis of knee: Code(s): M17.0 - Bilateral primary osteoarthritis of knee Category: Medical Plan: Discussed with patient that likely her obesity is a significant factor in her symptoms. She is on Trulicity. Advised patient to consider bariatric surgery. She is not ready for anything like that at this time Referred patient to PT Advised patient to use Voltaren gel (6) Fibromyalgia, primary: Code(s): M79.7 - Fibromyalgia Category: Medical Plan: Continue with gabapentin 800 mg t.i.d. Plan I spent 46 minutes reviewing patient's chart, evaluating patient, ordering diagnostic workup, counseling patient and documenting in the chart Orders: Orders Complete Blood Count Auto Diff 4 Months M05.9 - Rheumatoid arthritis with rheumatoid factor, unspecified Comprehensive Met. Panel 4 Months M05.9 - Rheumatoid arthritis with rheumatoid factor, unspecified Erythrocyte Sedimentation Rate 4 Months M05.9 - Rheumatoid arthritis with rheumatoid factor, unspecified T Spot TB 4 Months Z11.7 - Encounter for testing for latent tuberculosis infection PT Evaluation and Treatment Today M17.0 - Bilateral primary osteoarthritis of knee C Reactive Protein 4 Months M05.9 - Rheumatoid arthritis with rheumatoid factor, unspecified Medications: Refilled Orencia ClickJect (abatacept) 125 mg subcut QWEEK 4 mL 3RF NS gabapentin 800 mg PO TID 90 tabs 3RF M54.5 - Low back pain Coding Level of Care Code Est Pt Level 5 (09429) Complex EM visit Add On G2211 Diagnoses Seropositive rheumatoid arthritis M05.9 Medication monitoring encounter Z51.81 High risk medication use Z79.899 Chronic hepatitis C without hepatic coma B18.2 Viral hepatitis chronicity: chronic Hepatic coma status: without hepatic coma Bilateral primary osteoarthritis of knee M17.0 Fibromyalgia, primary M79.7
[2024-03-20 08:24] VITALS: BP 116/62; PULSE 86; O2SAT 94; BMI 46.7
== END 2024-03-20 08:39 | disposition home or self-care (01) ==
PROVIDERS: PCP Internal Medicine; Visit Provider Student in an Organized Health Care Education/Training Program
DX: M05.9 Rheumatoid arthritis with rheumatoid factor, unspecified (principal); Z51.81 Encounter for therapeutic drug level monitoring; Z79.899 Other long term (current) drug therapy; B18.2 Chronic viral hepatitis C; M17.0 Bilateral primary osteoarthritis of knee; M79.7 Fibromyalgia
CPT/HCPCS: 99215; G2211

== ENCOUNTER → 2024-03-20 08:11 | Outpatient (BNVA) | payer MEDICARE, MEDICAID, SELFPAY | PROVIDERS: PCP Internal Medicine; Visit Provider Student in an Organized Health Care Education/Training Program | DX: M05.9 Rheumatoid arthritis with rheumatoid factor, unspecified (principal); B18.2 Chronic viral hepatitis C; M17.0 Bilateral primary osteoarthritis of knee; M79.7 Fibromyalgia; M54.50 Low back pain, unspecified; Z11.7 Encounter for testing for latent tuberculosis infection; Z51.81 Encounter for therapeutic drug level monitoring; Z79.899 Other long term (current) drug therapy | CPT/HCPCS: 99212 ==

== ENCOUNTER 2024-07-16 10:22 | Outpatient (REF) | payer MEDICARE, MEDICAID, SELFPAY ==
[2024-07-16 10:34] LABS: MANUAL DIFF FLAG NO
[2024-07-16 11:20] LABS: Basophils Absolute Auto 0.1 X10*3/uL (0.0-0.2); Basophils Percent Auto 0.6 % (0-2); Eosinophils Absolute Auto 0.1 X10*3/uL (0.0-0.4); Eosinophils Percent Auto 1.5 % (0-4); Hematocrit 40.6 % (37.0-47.0); Hemoglobin 11.9 g/dl (12.0-16.0); Imm Gran Abs Auto 0.04 X10*3/uL (0.00-0.03); Imm Gran Pct Auto 0.5 % (0.0-0.4); Lymphocytes Absolute Auto 1.5 X10*3/uL (1.2-4.9); Lymphocytes Percent Auto 16.9 % (20-40); Mean Corpuscular HGB Conc 29.3 g/dl (31.0-35.0); Mean Corpuscular Hemoglobin 24.8 pg (27.0-33.0); Mean Corpuscular Volume 84.6 fL (80.0-98.0); Mean Platelet Volume 11.1 fL (9.4-12.3); Monocytes Absolute Auto 0.6 X10*3/uL (0.1-1.2); Monocytes Percent Auto 6.5 % (2-11); Neutrophils Absolute Auto 6.4 x10*3/uL (2.0-8.3); Platelet Count 275 X10*3/uL (160-400); Red Cell Distribution Width 14.5 % (11.0-16.0); White Blood Count 8.6 X10*3/uL (4.8-10.8)
[2024-07-16 11:51] LABS: Alanine Aminotransferase 19 U/L (0-31); Albumin Level 3.8 g/dL (3.5-5.0); Alkaline Phosphatase 109 U/L (39-117); Anion Gap 14 (12-20); Aspartate Amino Transferase 29 U/L (5-31); Bilirubin Total 0.3 mg/dL (0.0-1.0); Blood Urea Nitrogen 10 mg/dL (9-16); Calcium 9.3 mg/dL (8.4-10.2); Carbon Dioxide 31 mmol/L (22-29); Chloride 98 mmol/L (96-108); Estimated Glomerular Filt Rate > 60; Glucose Random 164 mg/dL (60-115); Potassium 4.1 mmol/L (3.3-5.1); Sodium 139 mmol/L (135-145); Total Protein 7.7 g/dL (6.5-8.0)
[2024-07-16 11:53] LABS: Erythrocyte Sedimentation Rate 34 MM/HR (0-20)
[2024-07-19 21:34] LABS: TS Negative Control Passed; TS Panel A 0; TS Panel B 0; TS Positive Control Passed; TSpotTB Negative (Negative)
== END 2024-07-16 10:23 | disposition home or self-care (01) ==
LOC: HO.LAB 10:22
PROVIDERS: Visit Provider Student in an Organized Health Care Education/Training Program
DX: M05.9 Rheumatoid arthritis with rheumatoid factor, unspecified (principal); Z11.7 Encounter for testing for latent tuberculosis infection
CPT/HCPCS: 36415; 80053; 85025; 85652; 86140; 86481

== ENCOUNTER 2024-07-18 08:06 | Outpatient (AMB) | payer MEDICARE, MEDICAID, SELFPAY ==
--- NOTE | 2024-07-18 08:12 | MHC.OFFVIS ---
Vital Signs 07/18/24 08:14 Height 5 ft 4 in Weight 277 lb 1.937 oz BMI 47.6 BP 120/80 Blood Pressure Location Rt brachial Position Sitting Pulse 96 Pulse Source Pulse Oximeter Pulse Oximetry (%) 99 Oxygen Delivery Method Room Air Intake Visit Reasons: RA Intake Note: Patient presents for RA. 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 Services: Street Light Cleaner Present Street Light Cleaner Name: Teodoro [phone] Information Interpreted: non-clinical & clinical Allergies No Known Allergies Allergy (Verified 07/18/24 08:13) Medication List - Last Reconciled 07/18/24 by Didier Mi MD albuterol sulfate 1 amp inhalation Q6H PRN alcohol swabs (Alcohol Prep Pads) 0 pad topical QID alum-mag hydroxide-simeth 200-200-20 mg/5 mL (Antacid-Antigas) 5 mL PO Q6H PRN aspirin 81 mg PO QPM bisacodyl 10 mg (2 x 5 mg) PO BEDTIME blood sugar diagnostic (FreeStyle Lite Strips) As directed budesonide-formoterol 160-4.5 mcg/actuation (Symbicort) 2 puffs PO BID bupropion HCl XL 300 mg PO QAM cholecalciferol (vitamin D3) (Vitamin D3) 50 mcg PO DAILY dexlansoprazole (Dexilant) 60 mg PO BEDTIME 90 days dicyclomine 10 mg PO QID diltiazem HCl CD 180 mg PO QAM docusate sodium (Stool Softener) 100 mg PO DAILY dulaglutide (Trulicity) 0.75 mg subcut QWEEK ferrous sulfate (FeroSul) 1 tab PO BID folic acid 1 mg PO QAM furosemide 20 mg PO QAM gabapentin 800 mg PO TID hydrochlorothiazide 12.5 mg PO Q OTHER DAY hydrocortisone 2.5% 1 appl [place] BID lamotrigine 1 tab PO BEDTIME lancets (TRUEplus Lancets) As directed lidocaine 4% (Salonpas (lidocaine)) 1 patch topical DAILY PRN [id number]-[id number]-[id number] 24,000-76,000 -120,000 unit (Creon) 2 caps PO QID lorazepam 0.5 mg PO BID PRN losartan 25 mg PO QAM mepolizumab (Nucala) mg subcut Q4W metformin ER 1,000 mg PO BIDAC mirtazapine 30 mg PO BEDTIME montelukast 10 mg PO QPM multivitamin 1 tab PO QPM nystatin 1 appl topical TID ondansetron 8 mg sublingual BID-TID PRN prednisone 20 mg PO DAILY 7 days sertraline 100 mg PO QAM simvastatin 1 tab PO BEDTIME sucralfate 1 g PO DAILY tiotropium bromide (Spiriva with HandiHaler) 1 cap inhalation DAILY tramadol 50 mg PO QID PRN zolpidem 10 mg PO BEDTIME PRN HPI Comments Details: 58yoF presents for follow-up of seropositive RA (RF- CCP ++). She states that she feels about the same overall. She continues to have multiple joint pain especially her hands, her knees with walking. She states that she ran out of [employer] about 3 months ago. The prior authorization did not get renewed. [facility] Medical History Low back pain Colon cancer screening Sinusitis COVID-19 COVID-19 High risk medication use Controlled substance agreement signed Medication monitoring encounter Velia albicans infection Abdominal pain Lab test positive for detection of COVID-19 virus COVID-19 Left elbow pain Nausea Abdominal bloating Obesity Bacterial pneumonia COPD (chronic obstructive pulmonary disease) Arthritis Multinodular thyroid Tubular adenoma of colon Chronic fatigue Asthma Bleeding hemorrhoid IBS (irritable bowel syndrome) Vitamin D deficiency Graves disease Hyperlipidemia HTN (hypertension) Diabetes Lumbar radiculopathy Anemia Osteoarthritis Morbid obesity GERD (gastroesophageal reflux disease) Hepatitis C Surgical History Hx of colonoscopy History of esophagogastroduodenoscopy (EGD) Hx of appendectomy Hx of cholecystectomy Family History Mother Diabetes HTN (hypertension) CVD (cardiovascular disease) Heart problem Father Diabetes Brother Autism History of open heart surgery CVD (cardiovascular disease) Diabetes Son Diabetes Maternal Grandmother Diabetes Maternal Grandfather Diabetes Social History Household Members: Spouse, Children and Other Housing: Apartment Are you a primary care analyst to a significant other at home: No Do you presently have visiting nurse or other home services: No Alcohol intake: never Patient Tobacco Use Status: Never used Tobacco service: No Current occupational status: unemployed and disabled Current occupation: rt handed Review of Systems Musc Reports arthralgias and Reports stiffness Physical Exam Vital Signs: Last Vital Signs Pulse 96 07/18/24 08:14 BP 120/80 07/18/24 08:14 Pulse Ox 99 07/18/24 08:14 Oxygen Delivery Method Room Air 07/18/24 08:14 BMI result Body Mass Index 47.6 Const General: cooperative and comfortable Nutritional Appearance: obese morbidly obese Orientation/consciousness: patient oriented x3 Limitations: no limitations HEENT Head: Yes normocephalic and Yes atraumatic Resp Effort & Inspection: normal respiratory effort and able to speak in complete sentences Auscultation: clear to auscultation bilaterally Cardio Rate: regular rate Rhythm: regular rhythm Neuro General: patient oriented x3 Extrem Other: No swollen joints Bilateral wrist tenderness to palpation and pain with full flexion extension Bilateral diffuse MCP, tenderness Numerous fibromyalgia tender points No PIP or DIP tenderness Heberden's nodes both hands Osteoarthritic changes of both feet Bilateral knee pain with flexion-extension More pronounced on the left Left knee crepitus Assessment & Plan Assessment & Plan (1) Seropositive rheumatoid arthritis: Comment: -ve ++CCP Methotrexate - 09/2018 -placed on hold 04/2021, discontinued due to anemia. Humira: July 2020-to 06/2023 ineffective Actemra 06/2023-08/2023 DC due to ins change [employer] 09/2023 ran out & didn't get renewed 04/2024 Code(s): M05.9 - Rheumatoid arthritis with rheumatoid factor, unspecified Category: Medical Plan: This is a 58-year-old female with seropositive RA returns for follow-up. She ran out of [employer] 3 months ago. Prior authorization did not get renewed. On exam no significant change in symptoms. There are no swollen joints on exam. Her inflammatory markers have been persistently elevated which may be related to her obesity and other comorbidities. I think we should monitor patient off DMARDs at this time symptoms are rather consistent with osteoarthritis Labs before next visit in 6 months (2) Medication monitoring encounter: Code(s): Z51.81 - Encounter for therapeutic drug level monitoring Category: Medical Plan: Patient is on numerous psychiatry medications and pain medication. I discussed reducing the tramadol dose to TID. Patient states that the tramadol dose currently isn't enough and she has to use patches to control the pain. We discussed the drug interactions. Patient however has been stable on her current combination of meds. Can continue tramadol 50 mg q.i.d. as needed (3) Bilateral primary osteoarthritis of knee: Code(s): M17.0 - Bilateral primary osteoarthritis of knee Category: Medical Plan: Discussed with patient that likely her obesity is a significant factor in her symptoms. Advised patient to consider bariatric surgery. She is not ready for anything like that at this time Advised patient to use Voltaren gel (4) Fibromyalgia, primary: Code(s): M79.7 - Fibromyalgia Category: Medical Plan: Continue with gabapentin 800 mg t.i.d. Plan I spent 26 minutes reviewing patient's chart, evaluating patient, ordering diagnostic workup, counseling patient and documenting in the chart Orders: Orders Complete Blood Count Auto Diff 6 Months M05.9 - Rheumatoid arthritis with rheumatoid factor, unspecified Comprehensive Met. Panel 6 Months M05.9 - Rheumatoid arthritis with rheumatoid factor, unspecified C Reactive Protein 6 Months M05.9 - Rheumatoid arthritis with rheumatoid factor, unspecified Erythrocyte Sedimentation Rate 6 Months M05.9 - Rheumatoid arthritis with rheumatoid factor, unspecified Medications: Discontinued Orencia ClickJect (abatacept) Discontinued Reason: Doctor's Order 125 mg subcut QWEEK 4 mL 2RF NS M05.9 - Rheumatoid arthritis with rheumatoid factor, unspecified Coding Level of Care Code Est Pt Level 4 (19489) Diagnoses Seropositive rheumatoid arthritis M05.9 Medication monitoring encounter Z51.81 Bilateral primary osteoarthritis of knee M17.0 Fibromyalgia, primary M79.7
[2024-07-18 08:14] VITALS: BP 120/80; PULSE 96; O2SAT 99; BMI 47.6
== END 2024-07-18 08:40 | disposition home or self-care (01) ==
PROVIDERS: PCP Internal Medicine; Visit Provider Student in an Organized Health Care Education/Training Program
DX: M05.79 Rheumatoid arthritis with rheumatoid factor of multiple sites without organ or systems involvement (principal); Z51.81 Encounter for therapeutic drug level monitoring; M17.0 Bilateral primary osteoarthritis of knee; M79.7 Fibromyalgia
CPT/HCPCS: 99214

== ENCOUNTER → 2024-07-18 08:06 | Outpatient (BNVA) | payer MEDICARE, MEDICAID, SELFPAY | PROVIDERS: PCP Internal Medicine; Visit Provider Student in an Organized Health Care Education/Training Program | DX: M05.9 Rheumatoid arthritis with rheumatoid factor, unspecified (principal); M79.7 Fibromyalgia; M17.0 Bilateral primary osteoarthritis of knee; Z51.81 Encounter for therapeutic drug level monitoring | CPT/HCPCS: 99212 ==

== ENCOUNTER 2024-08-27 09:25 | Inpatient (IN) | payer MEDICARE, MEDICAID, SELFPAY ==
[2024-08-27] VITALS (12 sets, daily range): BP systolic 106–155; BP diastolic 55–81; PULSE 64–106; RESP 12–28; TEMP 36.6–37; O2SAT 90–98; BMI 48.6
--- NOTE | ~2024-08-27 | XR_ITS ---
EXAMINATION: XR CHEST CLINICAL INFORMATION: cough, sob COMPARISON: Chest x-ray 08/23/2023. TECHNIQUE: Frontal view of the chest was obtained. FINDINGS: The lungs are hypoexpanded but clear acute pneumonic process. The heart size is normal. Pulmonary vascularity is prominent. There is moderate spondylosis dorsal spine. No aggressive lytic or sclerotic process seen. XR/XR chest 1V IMPRESSION: IMPRESSION: Mild pulmonary vascular congestion. Heart size is normal. . Electronically signed by: Gage Bolton MD 08/27/2024 12:31 PM EST
[2024-08-27] MEDS: Albuterol/Iprat 2.5/0.5MG 3 ML AMPUL.NEB INHALE ×5 (10:09→23:33)
--- NOTE | 2024-08-27 10:23 | ECG_ITS ---
Test Reason : sob Blood Pressure : */* mmHG Vent. Rate : 88 BPM Atrial Rate : 88 BPM P-R Int : 126 ms QRS Dur : 80 ms QT Int : 372 ms P-R-T Axes : 42 7 34 degrees QTcB Int : 450 ms Normal sinus rhythm Cannot rule out Inferior infarct (cited on or before 18-Apr-2023) Cannot rule out Anterior infarct , age undetermined Abnormal ECG When compared with ECG of 18-Apr-2023 12:34, No significant change was found Referred By: Ale Boles Electronically Signed By: ARNALDO LAWSON MD
--- NOTE | 2024-08-27 10:25 | ED.SOB ---
HPI - SOB/Dyspnea General Chief Complaint: Dyspnea Stated Complaint: SOB Time Seen by Provider: 08/27/24 10:11 Source: patient, RN notes reviewed and old records reviewed Mode of arrival: ambulatory History of Present Illness ED Provider: Ale Boles PA-C HPI Narrative: 58-year-old female with a past medical history of COPD, asthma, HLD, HTN, diabetes, anemia, GERD, hepatitis-C, presenting to the ED complaining of dry cough, SOB, and chest pain worsening x2 weeks. Admits she is on 2 L NC at home at baseline. Denies fever, chills, pedal edema, travel, sick contacts, abdominal pain, nausea/ vomiting. Related Data Home Medications ?Medication ?Instructions ?Recorded ?Confirmed albuterol sulfate 2.5 mg/3 mL 1 amp inhalation Q6H PRN wheezing 08/12/21 07/18/24 (0.083 %) solution for nebulization aspirin 81 mg tablet,delayed 81 mg PO QPM 08/12/21 07/18/24 release ferrous sulfate 325 mg (65 mg 1 tab PO BID 08/12/21 07/18/24 iron) tablet (FeroSul) multivitamin 1 tab PO QPM 08/12/21 07/18/24 blood sugar diagnostic (FreeStyle #10 ea 06/10/22 07/18/24 Lite Strips) lancets 33 gauge (TRUEplus Lancets) #100 ea 06/10/22 07/18/24 cholecalciferol (vitamin D3) 50 50 mcg PO DAILY 12/15/22 07/18/24 mcg (2,000 unit) capsule (Vitamin D3) albuterol sulfate 90 mcg/actuation 2 puff inhalation Q6H wheezing 08/27/24 aerosol inhaler (Ventolin HFA) bupropion HCl 300 mg 24 hr tablet, 300 mg PO QAM 08/27/24 extended release dicyclomine 20 mg tablet 20 mg PO QID 08/27/24 diltiazem HCl 180 mg 180 mg PO QAM 08/27/24 capsule,extended release 24 hr dulaglutide 1.5 mg/0.5 mL mg subcut QWEEK 08/27/24 subcutaneous pen injector (Trulicity) gabapentin 800 mg tablet 800 mg PO TID 08/27/24 hydrochlorothiazide 12.5 mg tablet 12.5 mg PO Q OTHER DAY 08/27/24 hydrocortisone 1 % topical ointment topical BID 08/27/24 ketoconazole 2 % shampoo topical 2XW 08/27/24 lamotrigine 200 mg tablet 200 mg PO BEDTIME 08/27/24 wdbvxo-jsxeoulj-spfyjmw 2 cap PO QID 08/27/24 24,000-76,000-120,000 unit capsule,delayed rel (Creon) psuoqf-vtptpwzj-vozozna 2 cap PO BID 08/27/24 25,000-79,000-105,000 unit capsule,delayed rel (Zenpep) lorazepam 0.5 mg tablet 0.5 mg PO BID PRN anxiety 08/27/24 losartan 50 mg tablet 50 mg PO QAM 08/27/24 mepolizumab 100 mg/mL subcutaneous mg subcut 08/27/24 auto-injector (Nucala) metformin 500 mg tablet,extended 1,000 mg PO 08/27/24 release 24 hr mirtazapine 30 mg tablet 30 mg PO BEDTIME 08/27/24 mometasone-formoterol HFA 200 2 puff inhalation BID 08/27/24 mcg-5 mcg/actuation aerosol inhaler (Dulera) montelukast 10 mg tablet 10 mg PO QPM 08/27/24 ondansetron 8 mg disintegrating 8 mg PO BID-TID PRN nausea/vomiting 08/27/24 tablet prednisone 10 mg tablet mg 08/27/24 sertraline 100 mg tablet 200 mg PO QAM 08/27/24 simvastatin 40 mg tablet 40 mg PO BEDTIME 08/27/24 sucralfate 1 gram tablet 1 g PO DAILY 08/27/24 tiotropium bromide 18 mcg capsule 1 cap inhalation DAILY 08/27/24 with inhalation device (Spiriva with HandiHaler) tramadol 50 mg tablet 50 mg PO QID PRN pain 08/27/24 Previous Rx's ?Medication ?Instructions ?Recorded aluminum-mag hydroxide-simethicone 5 ml PO Q6H PRN for heartburn #355 08/10/23 200 mg-200 mg-20 mg/5 mL oral susp mL (Antacid-Antigas) docusate sodium 100 mg capsule 100 mg PO DAILY #30 caps 02/26/24 (Stool Softener) bisacodyl 5 mg tablet,delayed 10 mg (2 x 5 mg) PO BEDTIME #180 12/16/24 release tabs Allergies Allergy/AdvReac Type Severity Reaction Status Date / Time No Known Allergies Allergy Verified 08/27/24 09:48 Review of Systems Review of Systems: Yes all other systems are reviewed and are negative Constitutional: Constitutional: Reports as per [facility] Past Medical History Attestation statement: The following information was validated with the patient. Source: old records reviewed Medical History Low back pain Colon cancer screening Sinusitis COVID-19 COVID-19 High risk medication use Controlled substance agreement signed Medication monitoring encounter Velia albicans infection Abdominal pain Lab test positive for detection of COVID-19 virus COVID-19 Left elbow pain Nausea Abdominal bloating Obesity Bacterial pneumonia COPD (chronic obstructive pulmonary disease) Arthritis Multinodular thyroid Tubular adenoma of colon Chronic fatigue Asthma Bleeding hemorrhoid IBS (irritable bowel syndrome) Vitamin D deficiency Graves disease Hyperlipidemia HTN (hypertension) Diabetes Lumbar radiculopathy Anemia Osteoarthritis Morbid obesity GERD (gastroesophageal reflux disease) Hepatitis C Surgical History Hx of colonoscopy History of esophagogastroduodenoscopy (EGD) Hx of appendectomy Hx of cholecystectomy Family History Family History Mother Diabetes HTN (hypertension) CVD (cardiovascular disease) Heart problem Father Diabetes Brother Autism History of open heart surgery CVD (cardiovascular disease) Diabetes Son Diabetes Maternal Grandmother Diabetes Maternal Grandfather Diabetes Social History Social History Household Members: Spouse, Children and Other Housing: Apartment Are you a primary health care legal assistant to a significant other at home: No Do you presently have visiting nurse or other home services: No Alcohol intake: never Patient Tobacco Use Status: Never used Tobacco Smoked in Last 30 Days: No Use of substances other than those prescribed or required for medical reasons: No Advance Directives: No Advance Directives Information Provided: Yes Do you have a plan to hurt others: No Plan Patient : No service: No Current occupational status: unemployed and disabled Current occupation: rt handed Physical Exam Vital Signs: Vital Signs: Last Vital Signs Temp 98.2 F 08/27/24 14:03 Pulse 105 H 08/27/24 16:27 Resp 20 08/27/24 16:27 BP 132/69 08/27/24 16:27 Pulse Ox 90 L 08/27/24 16:27 O2 Del Method Nasal Cannula 08/27/24 16:27 O2 Flow Rate 2 08/27/24 16:27 Oxygen Flow Rate 2 08/27/24 09:46 BMI result Body Mass Index 48.6 Const: General: cooperative, healthy appearing and no acute distress Orientation/consciousness: patient oriented x3 Limitations: no limitations HEENT: Head: Yes normal to inspection and Yes atraumatic Ears: hearing grossly normal bilaterally General nose exam: Normal external nose present Face and sinus: Yes normal facial exam Eyes: General: appearance normal, both eyes and all related structures EOM: EOMs intact bilaterally Neck: Neck: Yes normal visual inspection and Yes no meningeal signs Resp: Effort & Inspection: normal respiratory effort and no respiratory distress Auscultation: wheezes expiratory wheezes, inspiratory wheezes and throughout and diminished lung sounds diffuse Cardio: Rate: regular rate Heart sounds: S1 normal heart sound present and S2 normal heart sound present GI: Inspection: Yes normal to inspection Palpation (GI): Soft to palpation, nontender, no guarding and not rigid : General: Yes no CVA tenderness Back/Spine/Pelvis: Back: no CVA tenderness Skin: Rashes: no rashes Wounds: no wounds Neuro: General: patient oriented x3, tone normal and no meningeal signs Cranial nerves: Yes CN's II-XII intact bilaterally Gait exam (Neuro): Normal gait present Extrem: General: Yes normal to inspection Course Course Course Narrative: - labs reassuring. Troponin negative. BNP WNL. Viral studies negative -1203-- on re-evaluation patient is still with diminished lung sounds throughout and inspiratory/expiratory wheeze. Will give IV magnesium and have Respiratory re-evaluate patient for additional DuoNeb XR chest 1V IMPRESSION: Mild pulmonary vascular congestion. Heart size is normal. >1338-- on re-evaluation persistent expiratory wheeze and diminished lung sounds throughout appreciated. Plan for admission of COPD exacerbation Medications Administered Generic Name Dose Route Start Last Admin Trade Name Freq PRN Reason Stop Dose Admin Albuterol/Ipratropium 3 ml 08/27/24 16:00 08/27/24 14:53 Albuterol/Iprat 2.5/0.5mg 3 Ml Ampul.Neb INHALE 3 ml RQ4H RAVEN Administration Enoxaparin Sodium 40 mg 08/27/24 15:00 08/27/24 15:06 Enoxaparin Sodium 40 Mg/0.4 Ml Syringe SUBCUT 40 mg Q24H RAVEN Administration Sodium Chloride 3 ml 08/27/24 16:00 08/27/24 15:07 0.9 % Sodium Chloride Flush 3 Ml Syringe IVFLUSH 3 ml QSHIFT RAVEN Administration Discontinued Medications Generic Name Dose Route Start Last Admin Trade Name Freq PRN Reason Stop Dose Admin Albuterol/Ipratropium 3 ml 08/27/24 10:08 08/27/24 10:09 Albuterol/Iprat 2.5/0.5mg 3 Ml Ampul.Neb INHALE 08/27/24 10:09 3 ml ONCE ONE Administration Albuterol/Ipratropium 3 ml 08/27/24 12:30 08/27/24 12:32 Albuterol/Iprat 2.5/0.5mg 3 Ml Ampul.Neb INHALE 08/27/24 12:31 3 ml ONCE ONE Administration Magnesium Sulfate 2 gm in 50 mls @ 25 mls/hr 08/27/24 12:04 08/27/24 14:17 Magnesium Sulfate/H2o IV 08/27/24 14:03 Infused ONCE ONE Infusion Ketorolac Tromethamine 15 mg 08/27/24 12:09 08/27/24 12:17 Ketorolac Tromethamine 15 Mg/Ml Vial IVPUSH 08/27/24 12:10 15 mg ONCE ONE Administration Methylprednisolone Sodium Succinate 60 mg 08/27/24 10:23 08/27/24 10:42 Methylprednisolone Sod Succ 125 Mg/2 Ml Vial IVPUSH 08/27/24 10:24 60 mg ONCE ONE Administration Medical Decision Making Medical Decision Making MDM Narrative: 58-year-old female with a past medical history of COPD, asthma, HLD, HTN, diabetes, anemia, GERD, hepatitis-C, presenting to the ED complaining of dry cough, SOB, and chest pain worsening x2 weeks. On exam tachypneic, inspiratory and expiratory wheeze noted throughout with diminished lung sounds. No appreciable pedal edema. Concern for COPD exacerbation vs viral illness vs pneumonia. Lower suspicion for CHF. Unlikely ACS or dissection. Lower suspicion for PE/ DVT Plan: EKG, labs, CXR, viral testing, ED bronch protocol, IV Solu-Medrol, re-evaluate Please refer to course for remaining clinical decision making, interpretation of labs/imaging results, and discussions with consultants and/or family members. Differential Diagnosis Differential Diagnoses: The differential diagnosis associated with the presentation includes As above Admission/Observation Consideration of admission/observation: Escalation of care including admission/observation considered Lab Data MDM Lab Attestation statement: I reviewed the patient's lab results. 08/27/24 10:37 08/27/24 10:37 Labs: Lab Results 08/27/24 Range/Units 10:37 WBC 11.7 H (4.8-10.8) X10*3/uL RBC 4.76 (4.20-5.50) X10*6/uL Hgb 11.8 L (12.0-16.0) g/dl Hct 39.9 (37.0-47.0) % MCV 83.8 (80.0-98.0) fL MCH 24.8 L (27.0-33.0) pg MCHC 29.6 L (31.0-35.0) g/dl RDW 15.2 (11.0-16.0) % Plt Count 240 (160-400) X10*3/uL MPV 10.0 (9.4-12.3) fL Immature Gran % (Auto) 0.8 H (0.0-0.4) % Neut % (Auto) 77.9 H (45-73) % Lymph % (Auto) 11.7 L (20-40) % [place] % (Auto) 7.6 (2-11) % Eos % (Auto) 1.4 (0-4) % Baso % (Auto) 0.6 (0-2) % Lymph # (Auto) 1.4 (1.2-4.9) X10*3/uL [place] # (Auto) 0.9 (0.1-1.2) X10*3/uL Eos # (Auto) 0.2 (0.0-0.4) X10*3/uL Baso # (Auto) 0.1 (0.0-0.2) X10*3/uL Abs Immat Gran (auto) 0.09 H (0.00-0.03) X10*3/uL Absolute Neuts (auto) 9.1 H (2.0-8.3) x10*3/uL Absolute Nucleated RBC 0.000 (0.0-0.012) X10*3/uL Nucleated RBC % (auto) 0.0 (0.0-0.2) /100WBC Sodium 138 (135-145) mmol/L Potassium 3.9 (3.3-5.1) mmol/L Chloride 100 (96-108) mmol/L Carbon Dioxide 30 H (22-29) mmol/L Anion Gap 12 (12-20) BUN 13 (9-16) mg/dL Creatinine 0.88 (0.5-1.4) mg/dL Estim Creat Clear Calc 91.5 Estimated GFR > 60 Random Glucose 231 H (60-115) mg/dL Calcium 9.2 (8.4-10.2) mg/dL Magnesium 1.8 (1.6-2.6) mg/dL Total Bilirubin 0.2 (0.0-1.0) mg/dL Direct Bilirubin < 0.2 (0.0-0.5) mg/dL AST 21 (5-31) U/L ALT 15 (0-31) U/L Alkaline Phosphatase 109 (39-117) U/L Troponin I High Sens 3.2 (<3.5-17.0) ng/L B-Natriuretic Peptide 32 (<100) pg/mL Total Protein 7.6 (6.5-8.0) g/dL Albumin 3.7 (3.5-5.0) g/dL Lipase 10 (8-78) U/L Influenza Type A (PCR) NEGATIVE (Negative) Influenza Type B (PCR) NEGATIVE (Negative) RSV RNA Qual (PCR) NEGATIVE (Negative) SARS-CoV-2 RNA (RT-PCR) NEGATIVE (Negative) Independent Interpretation I performed an independent interpretation of an: Plain X-Ray Radiology Impression Discussion of test interpretation with radiology: I have reviewed the radiologist's reading. External Record Review External record reviewed: Inpatient record, Office record, Outpatient record, Prior outpatient labs, Prior outpatient radiology, Primary care record and Outside ED record Tests considered The following testing was considered but not selected: As above Prescription Management I considered prescription management with: Pain Medication and Other Chronic Conditions Patient?s care impacted by: Hypertension and Other ( COPD) Social Determinants Patient?s care significantly limited by Social Determinants of Health including: Other Social Determinant of Health Critical Care Time Critical Care Time Critical Care Time: Yes Total Critical Care Time: 40 Attestation: I have personally provided critical care time exclusive of time spent on separately billable procedures. Time includes review of lab data, radiology results, discussion with consultants, and monitoring for potential decompensation. Intervention performed as documented. Discharge Plan Discharge Clinical Impression: Acute exacerbation of chronic obstructive airways disease Patient Disposition: Admitted As Inpatient
[2024-08-27] MEDS: methylPREDNISolone Sod Succ 125 MG/2 ML VIAL 60 MG IVPUSH (10:42)
--- NOTE | 2024-08-27 10:44 | PC.NURSE ---
pt a&ox3, speaks turkish-speaking in short sentences to family, medical cash poster applied, nsr-st on monitor, updraft given by RT, pt rr labored-noted accessory muscle use- lungs in/ex wheezing, dry cough, pt difficult stick-iv inserted to rt hand, labs drawn, swab obtained, ekg being performed by tech call sheth within reach, plan of care ongoing
[2024-08-27 10:45] LABS: MANUAL DIFF FLAG NO
[2024-08-27 10:49] LABS: Basophils Absolute Auto 0.1 X10*3/uL (0.0-0.2); Basophils Percent Auto 0.6 % (0-2); Eosinophils Absolute Auto 0.2 X10*3/uL (0.0-0.4); Eosinophils Percent Auto 1.4 % (0-4); Hematocrit 39.9 % (37.0-47.0); Hemoglobin 11.8 g/dl (12.0-16.0); Imm Gran Abs Auto 0.09 X10*3/uL (0.00-0.03); Imm Gran Pct Auto 0.8 % (0.0-0.4); Lymphocytes Absolute Auto 1.4 X10*3/uL (1.2-4.9); Lymphocytes Percent Auto 11.7 % (20-40); Mean Corpuscular HGB Conc 29.6 g/dl (31.0-35.0); Mean Corpuscular Hemoglobin 24.8 pg (27.0-33.0); Mean Corpuscular Volume 83.8 fL (80.0-98.0); Monocytes Absolute Auto 0.9 X10*3/uL (0.1-1.2); Monocytes Percent Auto 7.6 % (2-11); Neutrophils Absolute Auto 9.1 x10*3/uL (2.0-8.3); Neutrophils Percent Auto 77.9 % (45-73); Platelet Count 240 X10*3/uL (160-400); Red Blood Count 4.76 X10*6/uL (4.20-5.50); Red Cell Distribution Width 15.2 % (11.0-16.0); White Blood Count 11.7 X10*3/uL (4.8-10.8)
[2024-08-27 11:09] LABS: B Type Natriuretic Peptide 32 pg/mL (<100)
[2024-08-27 11:10] LABS: Alanine Aminotransferase 15 U/L (0-31); Albumin Level 3.7 g/dL (3.5-5.0); Alkaline Phosphatase 109 U/L (39-117); Anion Gap 12 (12-20); Aspartate Amino Transferase 21 U/L (5-31); Bilirubin Direct < 0.2 mg/dL (0.0-0.5); Bilirubin Total 0.2 mg/dL (0.0-1.0); Blood Urea Nitrogen 13 mg/dL (9-16); Calcium 9.2 mg/dL (8.4-10.2); Carbon Dioxide 30 mmol/L (22-29); Chloride 100 mmol/L (96-108); Creatinine Clr Calc Pharmacy 91.5; Estimated Glomerular Filt Rate > 60; Glucose Random 231 mg/dL (60-115); Lipase 10 U/L (8-78); Magnesium 1.8 mg/dL (1.6-2.6); Potassium 3.9 mmol/L (3.3-5.1); Sodium 138 mmol/L (135-145); Total Protein 7.6 g/dL (6.5-8.0); Troponin-I High Sensitivity 3.2 ng/L (<3.5-17.0)
[2024-08-27 11:39] LABS: Influenza A PCR NEGATIVE (Negative); Influenza B PCR NEGATIVE (Negative); Resp Syncy Virus RNA Qual PCR NEGATIVE (Negative); SARS COV2 PCR INHOUSE NEGATIVE (Negative)
[2024-08-27] MEDS: Magnesium Sulfate/H2O 2 GM/50 ML PIGGYBACK IV (12:17)
[2024-08-27] MEDS: Ketorolac Tromethamine 15 MG/ML VIAL IVPUSH (12:17)
--- NOTE | 2024-08-27 12:24 | PC.NURSE ---
pt a&ox3, lungs continue to have in/ex wheezing, O2 sat 95% on 2L NC that she wears at baseline, pt given toradol for 9/10 back discomfort, as this nurse pushed the toradol pt began complaining that the area hurt, new line to be started for mag to run. call sheth within reach, plan of care ongoing.
--- NOTE | 2024-08-27 14:21 | PC.NURSE ---
pt a&ox3, monitoring engineer intact, rr equal/labored at times, lungs in/ex wheezing throughout, now speaking in full sentences but becomes dyspnic with exertion, pt continues to have lower back pain 03/16 which she states is much better than previously. hospitalist at bedside with figure clerk, call sheth within reach, plan of care ongoing
--- NOTE | 2024-08-27 14:25 | P.HPHOSP_ITS ---
History of Present Illness Date of Service: 08/27/24 Attending physician on admission: Munira Angel Chief Complaint: worsening cough and shortness of breath 58 yo female with past medical history of COPD, asthma on supplemental 02 2LPM via NC, HLD, HTN, DMII, HEP-C, GERD, and anemia. Pt comes to ED with complaints of dry cough, and shortness of breath worsening over the last 2 weeks. She denies any fever, chills, nocturnal sweating, edema, sick contacts, N/V/D or recent travel. Review of Systems 2 Constitutional: Comments: Endorses overall fatigue Denies fever, chills, N/V/D, weight changes or changes to sleep. Eyes: Comments: Denies any changes to vision ENT: Comments: Denies headache, changes to hearing, vertigo, rhinorrhea, congestion or sore throat. Cardiovascular: Comments: Denies palpitations, lightheadedness, diaphoresis, orthopnea, edema, or CP Endorses dizziness during coughing fits Respiratory: Comments: Denies sputum, hemoptysis, Endorses dry frequent cough, worse at night Gastrointestinal: Comments: Denies N/V/D, denies bowel changes or constipation, no changes to appetite, and denies any bleeding Genitourinary: Comments: Denies any urinary changes or difficulties, denies frequency, urgency, retention, pain/burning, or hematuria Musculoskeletal: Comments: Endorses posterior back/rib pain from coughing, and chronic LBP Denies swelling of any joints, other msk pain, or any recent falls Integumentary/Breasts: Comments: Denies any rashes, itching, dryness, color changes, wounds Neurologic: Comments: Denies seizures, dizziness, syncope/fainting, numbness/tingling or tremors Psychiatric: Comments: Endorses chronic anxiety, and depression Denies any changes to memory Endocrine: Comments: Denies temperature intolerances, sweating, polyuria/dipsia, or bleeding Allergic/Immunologic: Comments: Denies allergies [facility] Medical History Low back pain Colon cancer screening Sinusitis COVID-19 COVID-19 High risk medication use Controlled substance agreement signed Medication monitoring encounter Velia albicans infection Abdominal pain Lab test positive for detection of COVID-19 virus COVID-19 Left elbow pain Nausea Abdominal bloating Obesity Bacterial pneumonia COPD (chronic obstructive pulmonary disease) Arthritis Multinodular thyroid Tubular adenoma of colon Chronic fatigue Asthma Bleeding hemorrhoid IBS (irritable bowel syndrome) Vitamin D deficiency Graves disease Hyperlipidemia HTN (hypertension) Diabetes Lumbar radiculopathy Anemia Osteoarthritis Morbid obesity GERD (gastroesophageal reflux disease) Hepatitis C Family History Mother Diabetes HTN (hypertension) CVD (cardiovascular disease) Heart problem Father Diabetes Brother Autism History of open heart surgery CVD (cardiovascular disease) Diabetes Son Diabetes Maternal Grandmother Diabetes Maternal Grandfather Diabetes Surgical History Hx of colonoscopy History of esophagogastroduodenoscopy (EGD) Hx of appendectomy Hx of cholecystectomy Social History Household Members: Spouse, Children and Other Housing: Apartment Are you a primary administrator health care facility to a significant other at home: No Do you presently have visiting nurse or other home services: No Alcohol intake: never Patient Tobacco Use Status: Never used Tobacco Smoked in Last 30 Days: No Use of substances other than those prescribed or required for medical reasons: No Currently Displaying Signs/Symptoms of Drug Intoxication Withdrawal: No Advance Directives: No Advance Directives Information Provided: Yes Do you have a plan to hurt others: No Plan Patient : No service: No Current occupational status: unemployed and disabled Current occupation: rt handed Meds Allergies Allergy/AdvReac Type Severity Reaction Status Date / Time No Known Allergies Allergy Verified 08/27/24 09:48 Home Medications ?Medication ?Instructions ?Recorded ?Confirmed ?Last Taken ?Type albuterol sulfate 2.5 mg/3 mL 1 amp inhalation Q6H PRN wheezing 08/12/21 08/27/24 Unknown History (0.083 %) solution for nebulization aspirin 81 mg tablet,delayed 81 mg PO BEDTIME 08/12/21 08/27/24 08/27/24 History release ferrous sulfate 325 mg (65 mg 1 tab PO BID 08/12/21 08/27/24 08/27/24 History iron) tablet (FeroSul) multivitamin 1 tab PO BEDTIME 08/12/21 08/27/24 08/27/24 History blood sugar diagnostic (FreeStyle #10 ea 11/04/22 12/12/24 Unknown History Lite Strips) lancets 33 gauge (TRUEplus Lancets) #100 ea 06/10/22 07/18/24 Unknown History albuterol sulfate 90 mcg/actuation 2 puff inhalation Q6H wheezing 08/27/24 08/27/24 Unknown History aerosol inhaler (Ventolin HFA) bupropion HCl 300 mg 24 hr tablet, 300 mg PO DAILY 08/27/24 08/27/24 08/27/24 History extended release dicyclomine 20 mg tablet 20 mg PO QID 08/27/24 08/27/24 08/27/24 History diltiazem HCl 180 mg 180 mg PO DAILY 08/27/24 08/27/24 08/27/24 History capsule,extended release 24 hr dulaglutide 1.5 mg/0.5 mL 1.5 mg subcut SA 08/27/24 08/27/24 08/24/24 History subcutaneous pen injector (Trulicity) folic acid 1 mg tablet 1 mg PO DAILY 08/27/24 08/27/24 08/27/24 History gabapentin 800 mg tablet 800 mg PO TID 08/27/24 08/27/24 08/27/24 History hydrochlorothiazide 12.5 mg tablet 12.5 mg PO Q OTHER DAY 08/27/24 08/27/24 Unknown History hydrocortisone 1 % topical ointment 1 appl topical BID 08/27/24 08/27/24 08/27/24 History hydrocortisone 2.5 % topical cream 1 appl CA BID 08/27/24 08/27/24 08/27/24 History with perineal applicator ketoconazole 2 % shampoo 1 appl topical MOWE 08/27/24 08/27/24 08/26/24 History lamotrigine 200 mg tablet 200 mg PO BEDTIME 08/27/24 08/27/24 08/27/24 History dysekh-udewnbqa-zecabsy 2 cap PO QID 08/27/24 08/27/24 08/27/24 History 24,000-76,000-120,000 unit capsule,delayed rel (Creon) lorazepam 0.5 mg tablet 0.5 mg PO BID PRN anxiety 08/27/24 08/27/24 Unknown History losartan 50 mg tablet 50 mg PO DAILY 08/27/24 08/27/24 08/27/24 History mepolizumab 100 mg/mL subcutaneous 100 mg subcut Q28W 08/27/24 08/27/24 Unknown History auto-injector (Nucala) metformin 500 mg tablet,extended 1,000 mg PO BID 08/27/24 08/27/24 08/27/24 History release 24 hr mirtazapine 30 mg tablet 30 mg PO BEDTIME 08/27/24 08/27/24 08/27/24 History mometasone-formoterol HFA 200 2 puff inhalation BID 08/27/24 08/27/24 08/27/24 History mcg-5 mcg/actuation aerosol inhaler (Dulera) montelukast 10 mg tablet 10 mg PO BEDTIME 08/27/24 08/27/24 08/27/24 History ondansetron 8 mg disintegrating 8 mg PO BID-TID PRN nausea/vomiting 08/27/24 08/27/24 Unknown History tablet sertraline 100 mg tablet 200 mg PO DAILY 08/27/24 08/27/24 08/27/24 History simvastatin 40 mg tablet 40 mg PO BEDTIME 08/27/24 08/27/24 08/27/24 History sucralfate 1 gram tablet 1 g PO DAILY 08/27/24 08/27/24 08/27/24 History tiotropium bromide 18 mcg capsule 1 cap inhalation DAILY 08/27/24 08/27/24 08/27/24 History with inhalation device (Spiriva with HandiHaler) tramadol 50 mg tablet 50 mg PO TID PRN pain 08/27/24 08/27/24 Unknown History Physical Exam 2 Vital Signs and Narrative: Vital Signs: Last Vital Signs Temp 98.1 F 08/27/24 12:07 Pulse 92 08/27/24 12:07 Resp 22 H 08/27/24 12:30 BP 127/65 08/27/24 12:07 Pulse Ox 95 08/27/24 12:07 O2 Del Method Nasal Cannula 08/27/24 12:07 O2 Flow Rate 3 08/27/24 12:07 Oxygen Flow Rate 2 08/27/24 09:46 BMI result Body Mass Index 48.6 Const: General: cooperative, no acute distress, well developed, alert and awake Nutritional Appearance: obese morbidly obese O rientation/consciousness: patient oriented x3 HEENT: Head: Yes normal to inspection Ears: hearing grossly normal bilaterally Face and sinus: Yes normal facial exam Eyes: General: appearance normal, both eyes and all related structures P upils: Equal, round and reactive pupils present EOM: EOMs intact bilaterally Neck: Yes normal visual inspection and Yes full ROM Resp: Effort & Inspection: normal respiratory effort, able to speak in complete sentences and Actively coughing Auscultation: wheezes lower bilaterally and diminished lung sounds bilateral and diffuse Cardio: Rate: regular rate Rhythm: regular rhythm GI: Inspection: Yes obesity Palpation (GI): Soft to palpation A uscultation: normal bowel sounds : General: Yes no CVA tenderness Back/Spine/Pelvis: Back: no CVA tenderness Cervical Spine: cervical ROM normal Thoracic/Lumbar Spine: thoraco-lumbar ROM normal Skin: General skin exam: no rashes or lesions noted Neuro: General: patient oriented x3 Cranial nerves: Yes CN's II-XII intact bilaterally and Yes Equal, round and reactive pupils present Extrem: General: Yes full ROM Psych: Appearance: grossly normal Mental Status: mental status grossly normal Speech and movement: Normal speech and movement present Results Labs 08/29/24 06:53 08/29/24 06:53 Labs: Laboratory Results - last 24 hr 08/27/24 10:37 MCV 83.8 MCH 24.8 L MCHC 29.6 L RDW 15.2 Plt Count 240 MPV 10.0 Immature Gran % (Auto) 0.8 H Neut % (Auto) 77.9 H Lymph % (Auto) 11.7 L Preston % (Auto) 7.6 Eos % (Auto) 1.4 Baso % (Auto) 0.6 Lymph # (Auto) 1.4 Preston # (Auto) 0.9 Eos # (Auto) 0.2 Baso # (Auto) 0.1 Abs Immat Gran (auto) 0.09 H Absolute Neuts (auto) 9.1 H Absolute Nucleated RBC 0.000 Nucleated RBC % (auto) 0.0 Anion Gap 12 Estim Creat Clear Calc 91.5 Estimated GFR > 60 Random Glucose 231 H Calcium 9.2 Magnesium 1.8 Total Bilirubin 0.2 Direct Bilirubin < 0.2 AST 21 ALT 15 Alkaline Phosphatase 109 Troponin I High Sens 3.2 B-Natriuretic Peptide 32 Total Protein 7.6 Albumin 3.7 Lipase 10 Influenza Type A (PCR) NEGATIVE Influenza Type B (PCR) NEGATIVE RSV RNA Qual (PCR) NEGATIVE SARS-CoV-2 RNA (RT-PCR) NEGATIVE Imaging Radiologist's Impressions: Impressions Chest X-Ray 08/27/24 10:23 IMPRESSION: IMPRESSION: Mild pulmonary vascular congestion. Heart size is normal. . Electronically signed by: Gage Bolton MD 08/27/2024 12:31 PM [facility] Assessment and Plan (1) Hyperglycemia due to type 2 diabetes mellitus: Status: Acute (2) Acute exacerbation of chronic obstructive airways disease: Status: Acute Plan 58 yo female with past medical history of COPD, asthma on supplemental 02 2LPM via NC, HLD, HTN, DMII, HEP-C, GERD, and anemia. Pt comes to ED with complaints of dry cough, and shortness of breath worsening over the last 2 weeks. She denies any fever, chills, nocturnal sweating, edema, sick contacts, N/V/D or recent travel. COPD exacerbation with dry cough Pt does not meet for sepsis Continue supplemental 02 Continue duonebs, and inhalers On montelukast, continue On steroids at home, continue HTN Continue home diltiazem, losartan, furosemide HLD Continue statin DMII Hold home metformin and Trulicity Add sliding scale POC TIDAC Chronic pain Continue Tramadol, lidocaine patches GERD Continue PPI Mental health Continue home meds Hep C not currently treating Anemia not currently treating Code status: Full DVT porphylaxis: lovenox Quality Stroke Does the patient have a stroke diagnosis?: No VTE Prior VTE?: No VTE Risk Level:: Medical - moderate - high VTE Device Contraindication: Treatment Not Indicated VTE Drug Contraindication: N/A - Med Ordered
[2024-08-27] MEDS: Enoxaparin Sodium 40 MG/0.4 ML SYRINGE SUBCUT (15:06)
[2024-08-27] MEDS: 0.9 % Sodium Chloride Flush 3 ML SYRINGE IVFLUSH (15:07)
--- NOTE | 2024-08-27 15:08 | PC.NURSE ---
pt medicated per order
[2024-08-27 17:32] LABS: Glucose, Whole Blood 536 mg/dL (60-115)
--- NOTE | 2024-08-27 18:19 | PHA.MEDREC ---
Addendum entered by Car Workman RPh 08/27/24 19:28: Med rec was reviewed by [facility]. Original Note: Pharmacy Consult ? Medication Reconciliation Pharmacy has completed the medication reconciliation. Spoke to patent through [employer] ( [facility]) to confirm med list. patient states she has a big list and doesn't know them all. patient was able to confirm Trulicity 1.5 mg is every Monday, last dose was 08/24/24, Ketoconazole shampoo is every Monday and Monday , Prednisone taper dose ( 4 tabs x2 days, 3 tabs x2 days, 2 tabs x2 days, 1 tab x2 days) patient is on 2 tabs daily x2 days. Utilized claims to confirm med list.
--- NOTE | 2024-08-27 18:20 | PC.NURSE ---
dr christensen was notified of pts vitals and her stating she felt sob and wanted cough medications.
[2024-08-27] MEDS: Insulin Lispro 100 UNIT/ML 3 ML VIAL SUBCUT ×3 (18:23→20:43)
[2024-08-27] MEDS: Insulin Glargine,Hum.rec.anlog 100 UNIT/ML 10 ML VIAL 10 UNIT SUBCUT (18:24)
[2024-08-27] MEDS: Benzonatate 100 MG CAPSULE PO (19:17)
[2024-08-27] MEDS: guaiFENesin DM 600/30 1 TAB TAB.ER.12H PO (19:17)
--- NOTE | 2024-08-27 19:19 | PC.NURSE ---
pt medicated for cough, RT gave pt an updraft
[2024-08-27 20:28] LABS: Glucose, Whole Blood 400 mg/dL (60-115)
[2024-08-27] MEDS: Dicyclomine HCl 10 MG CAPSULE PO (20:43)
[2024-08-27] MEDS: bisacodyL 5 MG TABLET.DR 10 MG PO (20:43)
[2024-08-27] MEDS: Mirtazapine 30 MG TABLET PO (20:44)
[2024-08-27] MEDS: Multivitamin TABLET 1 TAB PO (20:44)
[2024-08-27] MEDS: Gabapentin 600 MG TABLET PO (20:44)
[2024-08-27] MEDS: Ferrous Sulfate 324 MG TABLET.DR PO (20:44)
[2024-08-27] MEDS: Lipase/Prot/Amylase 24/76/120K 1 CAP CAPSULE.DR 2 CAP PO (20:44)
[2024-08-27] MEDS: lamoTRIgine 100 MG TABLET 200 MG PO (20:44)
[2024-08-27] MEDS: Montelukast Sodium 10 MG TABLET PO (20:44)
[2024-08-27] MEDS: Aspirin Enteric Coated 81 MG TABLET.DR PO (20:44)
--- NOTE | 2024-08-27 20:48 | PC.NURSE ---
judi texted dr rosado pts poc was 400, pt getting 10u sliding scale, no additional insulin ordered at this time
--- NOTE | 2024-08-27 21:02 | PC.NURSE ---
contacted pharmacy for missing meds
[2024-08-27 23:01] LABS: Appearance Urine Clear; Color Urine Yellow; Glucose Urine UA >=1000 mg/dL (Negative); Leukocyte Esterase Urine Negative (Negative); Nitrite Urine Negative (Negative); PH 5.5 (5.0-9.0); Specific Gravity - Urine 1.015 (1.005-1.025); UMIC TRIGGER UACC YES; Urine Blood Negative (Negative); Urine Ketones Negative (Negative); Urine Protein Negative (Neg-Trace)
[2024-08-27 23:17] LABS: Bacteria Urine None Seen (None Seen); Hyaline Casts Urine 0-2 /LPF (0-2); RBC Urine 0-2 /HPF (0-2); Squamous Epithelial Cell Urine 0-2 /HPF (0-2); WBC Urine 0-5 /HPF (0-5)
[2024-08-27] MEDS: Morphine Sulfate 4 MG/ML CARTRIDGE IVPUSH (23:32)
[2024-08-27] MEDS: guaiFEN/Codeine SF 200/20/10ML 10 ML LIQUID 5 ML PO (23:32)
--- NOTE | 2024-08-27 23:45 | MHC.EDTECH ---
This tech took over care of pt at 2300,rounded and introduced self to pt,vitals taken,patient appears comfortable watching TV,call sheth in reach
[2024-08-28] VITALS (15 sets, daily range): BP systolic 108–141; BP diastolic 50–84; PULSE 73–110; RESP 16–24; TEMP 36–37.1; O2SAT 91–98
[2024-08-28] MEDS: Albuterol/Iprat 2.5/0.5MG 3 ML AMPUL.NEB INHALE ×5 (03:21→18:58)
[2024-08-28] MEDS: Benzonatate 100 MG CAPSULE PO ×4 (03:44→19:59)
[2024-08-28] MEDS: Morphine Sulfate 4 MG/ML CARTRIDGE IVPUSH (04:35)
[2024-08-28 05:54] LABS: MANUAL DIFF FLAG NO
[2024-08-28 05:56] LABS: Basophils Percent Auto 0.2 % (0-2); Eosinophils Percent Auto 0.1 % (0-4); Hematocrit 36.4 % (37.0-47.0); Hemoglobin 10.8 g/dl (12.0-16.0); Imm Gran Abs Auto 0.12 X10*3/uL (0.00-0.03); Imm Gran Pct Auto 0.8 % (0.0-0.4); Lymphocytes Absolute Auto 1.3 X10*3/uL (1.2-4.9); Lymphocytes Percent Auto 8.5 % (20-40); Mean Corpuscular HGB Conc 29.7 g/dl (31.0-35.0); Mean Corpuscular Hemoglobin 24.9 pg (27.0-33.0); Mean Corpuscular Volume 83.9 fL (80.0-98.0); Mean Platelet Volume 10.3 fL (9.4-12.3); Monocytes Absolute Auto 1.3 X10*3/uL (0.1-1.2); Monocytes Percent Auto 9.1 % (2-11); Neutrophils Percent Auto 81.3 % (45-73); Platelet Count 253 X10*3/uL (160-400); Red Blood Count 4.34 X10*6/uL (4.20-5.50); Red Cell Distribution Width 15.1 % (11.0-16.0); White Blood Count 14.8 X10*3/uL (4.8-10.8)
[2024-08-28 06:20] LABS: Anion Gap 13 (12-20); Blood Urea Nitrogen 19 mg/dL (9-16); Calcium 9.1 mg/dL (8.4-10.2); Carbon Dioxide 25 mmol/L (22-29); Chloride 99 mmol/L (96-108); Creatinine Clr Calc Pharmacy 74.5; Estimated Glomerular Filt Rate 52; Glucose Random 457 mg/dL (60-115); Potassium 4.2 mmol/L (3.3-5.1); Sodium 133 mmol/L (135-145)
[2024-08-28 07:07] LABS: Estimated Average Glucose 249 mg/dL; Hemoglobin A1C 251.6917 umol/L; Hemoglobin A1c % 10.3 % (<6.0); Total Hemoglobin (HGBA1C) 2828.6855 umol/L
[2024-08-28] MEDS: Insulin Regular, Human 100 UNIT/ML 10 ML VIAL 10 UNIT IVPUSH (07:13)
[2024-08-28] MEDS: Tiotropium Bromide 2.5 mcg 1 PUFF/2.5 MCG MIST.INHAL 2 PUFF INHALE (08:28)
[2024-08-28 09:12] LABS: Glucose, Whole Blood 143 mg/dL (60-115)
[2024-08-28] MEDS: Ferrous Sulfate 324 MG TABLET.DR PO ×2 (09:59→19:59)
[2024-08-28] MEDS: Gabapentin 400 MG CAPSULE 800 MG PO ×3 (09:59→20:00)
[2024-08-28] MEDS: Sucralfate 1 GM TABLET PO (09:59)
[2024-08-28] MEDS: dilTIAZem HCL CD 180 MG CAP.ER.24H PO (09:59)
[2024-08-28] MEDS: Folic Acid 1 MG TABLET PO (10:00)
[2024-08-28] MEDS: metFORMIN HCl ER 500 MG TAB.ER.24H 1000 MG PO ×2 (10:00→19:59)
[2024-08-28] MEDS: Losartan Potassium 50 MG TABLET PO (10:00)
[2024-08-28] MEDS: Insulin Glargine,Hum.rec.anlog 100 UNIT/ML 10 ML VIAL 20 UNIT SUBCUT (10:00)
[2024-08-28] MEDS: Dicyclomine HCl 10 MG CAPSULE PO ×2 (10:00→20:00)
[2024-08-28] MEDS: Docusate Sodium 100 MG CAPSULE PO (10:00)
[2024-08-28] MEDS: methylPREDNISolone Sod Succ 40 MG/ML VIAL IVPUSH (10:01)
[2024-08-28] MEDS: Sertraline HCL 100 MG TABLET 200 MG PO (10:19)
[2024-08-28] MEDS: Lipase/Prot/Amylase 24/76/120K 1 CAP CAPSULE.DR 2 CAP PO ×4 (10:19→20:00)
[2024-08-28] MEDS: guaiFENesin DM 600/30 1 TAB TAB.ER.12H PO ×2 (10:20→20:00)
[2024-08-28] MEDS: traMADoL HCL 50 MG TABLET PO ×2 (10:20→20:38)
[2024-08-28] MEDS: LORazepam 0.5 MG TABLET PO (10:20)
[2024-08-28] MEDS: 0.9 % Sodium Chloride Flush 3 ML SYRINGE IVFLUSH ×3 (10:22→20:01)
[2024-08-28] MEDS: Fluticasone/Vilanterol 200/25 BLST.W.DEV 1 PUFF INHALE (10:51)
[2024-08-28] MEDS: guaiFEN/Codeine SF 200/20/10ML 10 ML LIQUID 5 ML PO ×3 (11:39→22:46)
[2024-08-28 11:52] LABS: Glucose, Whole Blood 287 mg/dL (60-115)
[2024-08-28] MEDS: Insulin Lispro 100 UNIT/ML 3 ML VIAL SUBCUT ×4 (13:00→20:01)
--- NOTE | 2024-08-28 13:21 | PC.NURSE ---
Patient reporting she is still having pain after taking tramadol, declined to take ibuprofen . provider notified
--- NOTE | 2024-08-28 13:42 | HO.PM.IMPN ---
Subjective Subjective Date of Service: 08/28/24 Interval History: seen and evaluated still reporting dyspnea, cough and SOB having pain in back and chest from coughing no other events Review of Systems Review of Systems: Yes all other systems are reviewed and are negative Physical Exam Vital Signs: Vital Signs: Last Vital Signs Temp 98.1 F 08/28/24 12:49 Pulse 110 H 08/28/24 13:20 Resp 18 08/28/24 13:20 BP 118/79 08/28/24 13:20 Pulse Ox 98 08/28/24 13:20 O2 Del Method Room Air 08/28/24 13:20 O2 Flow Rate 2 08/28/24 12:49 Oxygen Flow Rate 2 08/27/24 09:46 BMI result Body Mass Index 48.6 Const: Other: Constitutional : Awake, interactive, not in distress Neck : Normal inspection, Supple Cardiovascular : RRR, no JVP, no lower extremity edema Respiratory : decreased bilateral air entry, no crackles, bilateral expiratory wheezes Gastrointestinal: soft, lax, Normal bowel sounds, Non tender Skin : Warm, Dry Neurological : Alert & oriented x3, No focal deficit Objective Data Active Medications Acetaminophen (Acetaminophen 325 Mg Tablet) 650 mg PO Q6H PRN PRN Reason: Pain, Mild 1-3,fever,headache Albuterol Sulfate (Albuterol Sulfate (0.083%) 2.5 Mg/3 Ml Vial.Neb) 2.5 mg INHALE Q4H PRN PRN Reason: Wheezing Albuterol/Ipratropium (Albuterol/Iprat 2.5/0.5mg 3 Ml Ampul.Neb) 3 ml INHALE RQ4H [facility] Last Admin: 08/28/24 10:51 Dose: 3 ml Documented By: VARGHESE Lipase/Protease/Amylase (Lipase/Prot/Amylase 24/76/120k 1 Cap Capsule.) 2 cap PO QID [facility] Last Admin: 08/28/24 13:11 Dose: 2 cap Documented By: RACHEL Aspirin (Aspirin Enteric Coated 81 Mg Tablet.) 81 mg PO BEDTIME [facility] Last Admin: 08/27/24 20:44 Dose: 81 mg Documented By: OMAIRA Atorvastatin Calcium (Atorvastatin Calcium 20 Mg Tablet) 20 mg PO BEDTIME [facility] Benzonatate (Benzonatate 100 Mg Capsule) 100 mg PO TID [facility] Last Admin: 08/28/24 11:20 Dose: Not Given Documented By: RACHEL Non-Admin Reason: Previously Administered Bisacodyl (Bisacodyl 5 Mg Tablet.) 10 mg PO BEDTIME [facility] Last Admin: 08/27/24 20:43 Dose: 10 mg Documented By: OMAIRA Bupropion HCl (Bupropion Hcl Xl 300 Mg Tab.Er.24h) 300 mg PO DAILY [facility] Last Admin: 08/28/24 11:09 Dose: Not Given Documented By: RACHEL Non-Admin Reason: Patient Refused Calcium Carbonate (Calcium Carbonate 750 Mg Tab.Chew) 750 mg PO Q4H PRN PRN Reason: Heartburn Dicyclomine HCl (Dicyclomine Hcl 10 Mg Capsule) 10 mg PO BID [facility] Last Admin: 08/28/24 10:00 Dose: 10 mg Documented By: RACHEL Diltiazem HCl (Diltiazem Hcl Cd 180 Mg Cap.Er.24h) 180 mg PO DAILY [facility]; Protocol Last Admin: 08/28/24 09:59 Dose: 180 mg Documented By: RACHEL Docusate Sodium (Docusate Sodium 100 Mg Capsule) 100 mg PO DAILY [facility] Last Admin: 08/28/24 10:00 Dose: 100 mg Documented By: RACHEL Enoxaparin Sodium (Enoxaparin Sodium 40 Mg/0.4 Ml Syringe) 40 mg SUBCUT Q24H [facility] Last Admin: 08/27/24 15:06 Dose: 40 mg Documented By: OMAIRA Ferrous Sulfate (Ferrous Sulfate 324 Mg Tablet.) 324 mg PO BID [facility] Last Admin: 08/28/24 09:59 Dose: 324 mg Documented By: RACHEL Fluticasone/Vilanterol (Fluticasone/Vilanterol 200/25 Blst.W.Dev) 1 puff INHALE DAILY [facility] Last Admin: 08/28/24 10:51 Dose: 1 puff Documented By: VARGHESE Folic Acid (Folic Acid 1 Mg Tablet) 1 mg PO DAILY [facility] Last Admin: 08/28/24 10:00 Dose: 1 mg Documented By: RACHEL Gabapentin (Gabapentin 400 Mg Capsule) 800 mg PO TID [facility] Last Admin: 08/28/24 09:59 Dose: 800 mg Documented By: RACHEL Guaifenesin/Codeine Phosphate (Guaifen/Codeine Sf 200/20/10ml 10 Ml Liquid) 5 ml PO Q6H [facility] Last Admin: 08/28/24 11:39 Dose: 5 ml Documented By: KELSEY Guaifenesin/Dextromethorphan (Guaifenesin Dm 600/30 1 Tab Tab.Er.12h) 1 tab PO BID [facility] Last Admin: 08/28/24 10:20 Dose: 1 tab Documented By: RACHEL Hydrocortisone (Hydrocortisone 2.5 % Rectal Cr 30 Gm Tube) [address] BID [facility] Last Admin: 08/28/24 10:08 Dose: Not Given Documented By: RACHEL Non-Admin Reason: Patient Refused Hydrocortisone (Hydrocortisone 1 % Ointment 28.35 Gm Tube) 1 appl TOPICAL BID [facility]; Protocol Last Admin: 08/28/24 10:08 Dose: Not Given Documented By: RACHEL Non-Admin Reason: Patient Refused Ibuprofen (Ibuprofen 400 Mg Tablet) 400 mg PO TIDWM [facility] Last Admin: 08/28/24 13:15 Dose: Not Given Documented By: RACHEL Non-Admin Reason: Patient Refused Insulin Glargine (Insulin Glargine,Hum.Rec.Anlog 100 Unit/Ml 10 Ml Vial) 20 unit SUBCUT DAILY [facility] Last Admin: 08/28/24 10:00 Dose: 20 unit Documented By: RACHEL Insulin Human Lispro (Insulin Lispro 100 Unit/Ml 3 Ml Vial) 0 unit SUBCUT QIDACHS [facility]; Protocol Last Admin: 08/28/24 13:11 Dose: 287 unit Documented By: RACHEL Lamotrigine (Lamotrigine 100 Mg Tablet) 200 mg PO BEDTIME [facility] Last Admin: 08/27/24 20:44 Dose: 200 mg Documented By: OMAIRA Lorazepam (Lorazepam 0.5 Mg Tablet) 0.5 mg PO BID PRN PRN Reason: anxiety Last Admin: 08/28/24 10:20 Dose: 0.5 mg Documented By: RACHEL Losartan Potassium (Losartan Potassium 50 Mg Tablet) 50 mg PO DAILY [facility]; Protocol Last Admin: 08/28/24 10:00 Dose: 50 mg Documented By: RACHEL Magnesium Hydroxide (Milk Of Magnesia 30 Ml Oral.Susp) 30 ml PO DAILY PRN PRN Reason: Constipation Melatonin (Melatonin 3 Mg Tablet) 6 mg PO BEDTIME PRN PRN Reason: Insomnia Metformin HCl (Metformin Hcl Er 500 Mg Tab.Er.24h) 1,000 mg PO BID [facility] Last Admin: 08/28/24 10:00 Dose: 1,000 mg Documented By: RACHEL Methylprednisolone Sodium Succinate (Methylprednisolone Sod Succ 40 Mg/Ml Vial) 40 mg IVPUSH Q12H [facility] Last Admin: 08/28/24 10:01 Dose: 40 mg Documented By: RACHEL Mirtazapine (Mirtazapine 30 Mg Tablet) 30 mg PO BEDTIME [facility] Last Admin: 08/27/24 20:44 Dose: 30 mg Documented By: OMAIRA Montelukast Sodium (Montelukast Sodium 10 Mg Tablet) 10 mg PO BEDTIME [facility] Last Admin: 08/27/24 20:44 Dose: 10 mg Documented By: OMAIRA Multivitamins/Vitamin C (Multivitamin Tablet) 1 tab PO BEDTIME [facility] Last Admin: 08/27/24 20:44 Dose: 1 tab Documented By: OMAIRA Ondansetron HCl (Ondansetron Hcl 4 Mg/2 Ml Vial) 4 mg IVPUSH Q8H PRN PRN Reason: Nausea and Vomiting Sertraline HCl (Sertraline Hcl 100 Mg Tablet) 200 mg PO DAILY [facility] Last Admin: 08/28/24 10:19 Dose: 200 mg Documented By: RACHEL Sodium Chloride (0.9 % Sodium Chloride Flush 3 Ml Syringe) 3 ml IVFLUSH QSHIFT [facility] Last Admin: 08/28/24 10:22 Dose: 3 ml Documented By: RACHEL Sucralfate (Sucralfate 1 Gm Tablet) 1 gm PO DAILY [facility] Last Admin: 08/28/24 09:59 Dose: 1 gm Documented By: RACHEL Tiotropium [place] (Tiotropium [place] 2.5 Mcg 1 Puff/2.5 Mcg Mist.Inhal) 2 puff INHALE RDAILY [facility] Last Admin: 08/28/24 08:28 Dose: 2 puff Documented By: VARGHESE Tramadol HCl (Tramadol Hcl 50 Mg Tablet) 50 mg PO TID PRN PRN Reason: Pain, Moderate(Pain Scale 4-6) Last Admin: 08/28/24 10:20 Dose: 50 mg Documented By: RACHEL Labs 08/28/24 04:52 08/28/24 04:52 Labs: Laboratory Results - last 24 hr 08/27/24 08/27/24 08/27/24 17:27 20:24 22:46 MCV MCH MCHC RDW Plt Count MPV Immature Gran % (Auto) Neut % (Auto) Lymph % (Auto) [place] % (Auto) Eos % (Auto) Baso % (Auto) Lymph # (Auto) [place] # (Auto) Eos # (Auto) Baso # (Auto) Abs Immat Gran (auto) Absolute Neuts (auto) Absolute Nucleated RBC Nucleated RBC % (auto) Anion Gap Estim Creat Clear Calc Estimated GFR POC Glucose 536 H* 400 H* Random Glucose Estimat Average Glucose Hemoglobin A1c % Calcium Urine Color Yellow Urine Appearance Clear Urine pH 5.5 Ur Specific [place] 1.015 Urine Protein Negative Urine Glucose (UA) >=1000 H Urine Ketones Negative Urine Blood Negative Urine Nitrite Negative Ur Leukocyte Esterase Negative Urine RBC 0-2 Urine WBC 0-5 Ur Squamous Epith Cells 0-2 Urine Bacteria None Seen Hyaline Casts 0-2 08/28/24 08/28/24 08/28/24 04:52 08:28 11:46 MCV 83.9 MCH 24.9 L MCHC 29.7 L RDW 15.1 Plt Count 253 MPV 10.3 Immature Gran % (Auto) 0.8 H Neut % (Auto) 81.3 H Lymph % (Auto) 8.5 L [place] % (Auto) 9.1 Eos % (Auto) 0.1 Baso % (Auto) 0.2 Lymph # (Auto) 1.3 [place] # (Auto) 1.3 H Eos # (Auto) 0.0 Baso # (Auto) 0.0 Abs Immat Gran (auto) 0.12 H Absolute Neuts (auto) 12.0 H Absolute Nucleated RBC 0.000 Nucleated RBC % (auto) 0.0 Anion Gap 13 Estim Creat Clear Calc 74.5 Estimated GFR 52 POC Glucose 143 H 287 H Random Glucose 457 H* Estimat Average Glucose 249 Hemoglobin A1c % 10.3 H Calcium 9.1 Urine Color Urine Appearance Urine pH Ur Specific [place] Urine Protein Urine Glucose (UA) Urine Ketones Urine Blood Urine Nitrite Ur Leukocyte Esterase Urine RBC Urine WBC Ur Squamous Epith Cells Urine Bacteria Hyaline Casts Assessment and Plan (1) Acute exacerbation of chronic obstructive airways disease: Status: Acute Plan 58 yo female with past medical history of COPD, asthma on supplemental 02 2LPM via [place], HLD, HTN, DMII, HEP-C, GERD, and anemia. Pt comes to ED with complaints of dry cough, and shortness of breath worsening over the last 2 weeks. She denies any fever, chills, nocturnal sweating, edema, sick contacts, N/V/D or recent travel. acute COPD exacerbation Continue supplemental 02 Continue duonebs, and inhalers On montelukast, continue IV steroids wean O2 down as tolerated HTN Continue home diltiazem, losartan, furosemide HLD Continue statin DMII Hold home metformin and Trulicity Add sliding scale POC TIDAC Chronic pain Continue Tramadol, lidocaine patches GERD Continue PPI Mental health Continue home meds Hep C not currently treating Anemia not currently treating Code status: Full DVT porphylaxis: lovenox Quality Stroke Does the patient have a stroke diagnosis?: No VTE Prior VTE?: No VTE Risk Level:: Medical - moderate - high VTE Device Contraindication: Treatment Not Indicated VTE Drug Contraindication: N/A - Med Ordered
[2024-08-28] MEDS: Ketorolac Tromethamine 15 MG/ML VIAL IVPUSH ×2 (13:57→22:52)
--- NOTE | 2024-08-28 14:30 | MHC.CM.PN ---
CM ASSESSMENT COMPLETED W/ DIGITAL ASSOCIATE MEDIA DIRECTOR ASSISTANCE. PAGAN DELIVERED. PATIENT LIVES IN AN APARTMENT W/ AND ADULT SON. FUNCTIONALLY INDEPENDENT. USES [employer] PRN. HAS CPAP AND NEBULIZER - SHE CANNOT RECALL NAME OF SUPPLIER. NO SERVICES. NO HCP - CM PROVIDED EDUCATION AND OFFERED ASSISTANCE. PATIENT DECLINED. PCP AYAH BACH DP: GOAL IS HOME SELF CARE. FAMILY TRANSPORT. CM WILL CONTINUE TO FOLLOW.
[2024-08-28] MEDS: Enoxaparin Sodium 40 MG/0.4 ML SYRINGE SUBCUT (15:18)
[2024-08-28 16:04] LABS: Glucose, Whole Blood 578 mg/dL (60-115)
[2024-08-28] MEDS: Lidocaine 4 % Patch ADH..PATCH 2 PATCH TRANSDERMA (16:55)
[2024-08-28] MEDS: Insulin Glargine,Hum.rec.anlog 100 UNIT/ML 10 ML VIAL 10 UNIT SUBCUT (16:57)
[2024-08-28 19:13] LABS: Glucose, Whole Blood 389 mg/dL (60-115)
[2024-08-28] MEDS: Aspirin Enteric Coated 81 MG TABLET.DR PO (19:59)
[2024-08-28] MEDS: Atorvastatin Calcium 20 MG TABLET PO (19:59)
[2024-08-28] MEDS: Mirtazapine 30 MG TABLET PO (19:59)
[2024-08-28] MEDS: Multivitamin TABLET 1 TAB PO (20:00)
[2024-08-28] MEDS: lamoTRIgine 100 MG TABLET 200 MG PO (20:00)
[2024-08-28] MEDS: Montelukast Sodium 10 MG TABLET PO (20:00)
[2024-08-28] MEDS: bisacodyL 5 MG TABLET.DR 10 MG PO (20:00)
[2024-08-28 22:20] LABS: Glucose, Whole Blood 206 mg/dL (60-115)
[2024-08-29] VITALS (12 sets, daily range): BP systolic 111–148; BP diastolic 53–78; PULSE 89–110; RESP 16–26; TEMP 36–36.7; O2SAT 90–95; BMI 48.6
[2024-08-29] MEDS: traMADoL HCL 50 MG TABLET PO ×3 (05:11→20:46)
[2024-08-29] MEDS: guaiFEN/Codeine SF 200/20/10ML 10 ML LIQUID 5 ML PO ×4 (05:12→22:50)
[2024-08-29] MEDS: Albuterol Sulfate (0.083%) 2.5 MG/3 ML VIAL.NEB INHALE (05:15)
[2024-08-29 07:00] LABS: MANUAL DIFF FLAG NO
[2024-08-29 07:16] LABS: Anion Gap 14 (12-20); Basophils Absolute Auto 0.1 X10*3/uL (0.0-0.2); Basophils Percent Auto 0.3 % (0-2); Blood Urea Nitrogen 25 mg/dL (9-16); Calcium 9.4 mg/dL (8.4-10.2); Carbon Dioxide 29 mmol/L (22-29); Chloride 103 mmol/L (96-108); Creatinine Clr Calc Pharmacy 99.4; Eosinophils Percent Auto 0.1 % (0-4); Estimated Glomerular Filt Rate > 60; Glucose Random 174 mg/dL (60-115); Hematocrit 38.4 % (37.0-47.0); Hemoglobin 11.4 g/dl (12.0-16.0); Imm Gran Abs Auto 0.14 X10*3/uL (0.00-0.03); Imm Gran Pct Auto 0.9 % (0.0-0.4); Lymphocytes Absolute Auto 1.9 X10*3/uL (1.2-4.9); Lymphocytes Percent Auto 12.8 % (20-40); Mean Corpuscular HGB Conc 29.7 g/dl (31.0-35.0); Mean Corpuscular Hemoglobin 25.1 pg (27.0-33.0); Mean Corpuscular Volume 84.4 fL (80.0-98.0); Mean Platelet Volume 10.6 fL (9.4-12.3); Monocytes Absolute Auto 1.2 X10*3/uL (0.1-1.2); Monocytes Percent Auto 7.9 % (2-11); Neutrophils Absolute Auto 11.7 x10*3/uL (2.0-8.3); Platelet Count 238 X10*3/uL (160-400); Potassium 4.5 mmol/L (3.3-5.1); Red Blood Count 4.55 X10*6/uL (4.20-5.50); Red Cell Distribution Width 15.5 % (11.0-16.0); Sodium 141 mmol/L (135-145)
[2024-08-29] MEDS: Fluticasone/Vilanterol 200/25 BLST.W.DEV 1 PUFF INHALE (07:33)
[2024-08-29] MEDS: Tiotropium Bromide 2.5 mcg 1 PUFF/2.5 MCG MIST.INHAL 2 PUFF INHALE (07:33)
[2024-08-29] MEDS: Albuterol/Iprat 2.5/0.5MG 3 ML AMPUL.NEB INHALE ×4 (07:33→20:19)
[2024-08-29 07:53] LABS: Glucose, Whole Blood 163 mg/dL (60-115)
[2024-08-29] MEDS: Lidocaine 4 % Patch ADH..PATCH 2 PATCH TRANSDERMA (07:58)
[2024-08-29] MEDS: Insulin Lispro 100 UNIT/ML 3 ML VIAL SUBCUT ×4 (08:01→20:44)
[2024-08-29] MEDS: Insulin Glargine,Hum.rec.anlog 100 UNIT/ML 10 ML VIAL 20 UNIT SUBCUT (08:01)
[2024-08-29] MEDS: Ferrous Sulfate 324 MG TABLET.DR PO ×2 (08:02→20:48)
[2024-08-29] MEDS: guaiFENesin DM 600/30 1 TAB TAB.ER.12H PO ×2 (08:02→20:45)
[2024-08-29] MEDS: Dicyclomine HCl 10 MG CAPSULE PO ×2 (08:03→20:48)
[2024-08-29] MEDS: Folic Acid 1 MG TABLET PO (08:03)
[2024-08-29] MEDS: Gabapentin 400 MG CAPSULE 800 MG PO ×3 (08:03→20:48)
[2024-08-29] MEDS: Lipase/Prot/Amylase 24/76/120K 1 CAP CAPSULE.DR 2 CAP PO ×4 (08:04→20:44)
[2024-08-29] MEDS: Losartan Potassium 50 MG TABLET PO (08:04)
[2024-08-29] MEDS: metFORMIN HCl ER 500 MG TAB.ER.24H 1000 MG PO ×2 (08:04→20:45)
[2024-08-29] MEDS: predniSONE 20 MG TABLET 40 MG PO (08:05)
[2024-08-29] MEDS: Docusate Sodium 100 MG CAPSULE PO (08:05)
[2024-08-29] MEDS: dilTIAZem HCL CD 180 MG CAP.ER.24H PO (08:06)
[2024-08-29] MEDS: buPROPion HCl XL 300 MG TAB.ER.24H PO (08:06)
[2024-08-29] MEDS: Sucralfate 1 GM TABLET PO (08:06)
[2024-08-29] MEDS: Sertraline HCL 100 MG TABLET 200 MG PO (08:06)
[2024-08-29] MEDS: Benzonatate 100 MG CAPSULE PO ×3 (08:07→20:47)
[2024-08-29] MEDS: 0.9 % Sodium Chloride Flush 3 ML SYRINGE IVFLUSH ×3 (08:08→16:05)
[2024-08-29 11:33] LABS: Glucose, Whole Blood 455 mg/dL (60-115)
[2024-08-29] MEDS: Insulin Glargine,Hum.rec.anlog 100 UNIT/ML 10 ML VIAL 10 UNIT SUBCUT (12:25)
[2024-08-29] MEDS: Insulin Lispro 100 UNIT/ML 3 ML VIAL 10 UNIT SUBCUT ×2 (12:26→16:05)
--- NOTE | 2024-08-29 12:53 | HO.PM.IMPN ---
Subjective Subjective Date of Service: 08/29/24 Interval History: seen and evaluated still reporting dyspnea, cough and SOB having pain in back and chest from coughing no other events Physical Exam Vital Signs: Vital Signs: Last Vital Signs Temp 97.5 F 08/29/24 11:40 Pulse 105 H 08/29/24 11:40 Resp 18 08/29/24 11:40 BP 122/53 L 08/29/24 11:40 Pulse Ox 91 L 08/29/24 11:40 O2 Del Method Nasal Cannula 08/29/24 11:40 O2 Flow Rate 2.0 08/29/24 11:40 Oxygen Flow Rate 2 08/27/24 09:46 BMI result Body Mass Index 48.6 Const: Other: Constitutional : Awake, interactive, not in distress Neck : Normal inspection, Supple Cardiovascular : RRR, no JVP, no lower extremity edema Respiratory : decreased bilateral air entry, no crackles, bilateral expiratory wheezes Gastrointestinal: soft, lax, Normal bowel sounds, Non tender Skin : Warm, Dry Neurological : Alert & oriented x3, No focal deficit Objective Data Active Medications Acetaminophen (Acetaminophen 325 Mg Tablet) 650 mg PO Q6H PRN PRN Reason: Pain, Mild 1-3,fever,headache Albuterol Sulfate (Albuterol Sulfate (0.083%) 2.5 Mg/3 Ml Vial.Neb) 2.5 mg INHALE Q4H PRN PRN Reason: Wheezing Last Admin: 08/29/24 05:15 Dose: 2.5 mg Documented By: PAULY Albuterol/Ipratropium (Albuterol/Iprat 2.5/0.5mg 3 Ml Ampul.Neb) 3 ml INHALE RQ4H [facility] Last Admin: 08/29/24 11:18 Dose: 3 ml Documented By: JASIEL Lipase/Protease/Amylase (Lipase/Prot/Amylase 24/76/120k 1 Cap Capsule.) 2 cap PO QID [facility] Last Admin: 08/29/24 12:26 Dose: 2 cap Documented By: GILLIAN Aspirin (Aspirin Enteric Coated 81 Mg Tablet.) 81 mg PO BEDTIME [facility] Last Admin: 08/28/24 19:59 Dose: 81 mg Documented By: NAUN Atorvastatin Calcium (Atorvastatin Calcium 20 Mg Tablet) 20 mg PO BEDTIME [facility] Last Admin: 08/28/24 19:59 Dose: 20 mg Documented By: NAUN Benzonatate (Benzonatate 100 Mg Capsule) 100 mg PO TID [facility] Last Admin: 08/29/24 08:07 Dose: 100 mg Documented By: GILLIAN Bisacodyl (Bisacodyl 5 Mg Tablet.) 10 mg PO BEDTIME [facility] Last Admin: 08/28/24 20:00 Dose: 10 mg Documented By: NAUN Bupropion HCl (Bupropion Hcl Xl 300 Mg Tab.Er.24h) 300 mg PO DAILY [facility] Last Admin: 08/29/24 08:06 Dose: 300 mg Documented By: GILLIAN Calcium Carbonate (Calcium Carbonate 750 Mg Tab.Chew) 750 mg PO Q4H PRN PRN Reason: Heartburn Dicyclomine HCl (Dicyclomine Hcl 10 Mg Capsule) 10 mg PO BID [facility] Last Admin: 08/29/24 08:03 Dose: 10 mg Documented By: GILLIAN Diltiazem HCl (Diltiazem Hcl Cd 180 Mg Cap.Er.24h) 180 mg PO DAILY [facility]; Protocol Last Admin: 08/29/24 08:06 Dose: 180 mg Documented By: GILLIAN Docusate Sodium (Docusate Sodium 100 Mg Capsule) 100 mg PO DAILY [facility] Last Admin: 08/29/24 08:05 Dose: 100 mg Documented By: GILLIAN Enoxaparin Sodium (Enoxaparin Sodium 40 Mg/0.4 Ml Syringe) 40 mg SUBCUT Q24H [facility] Last Admin: 08/28/24 15:18 Dose: 40 mg Documented By: GILLIAN Ferrous Sulfate (Ferrous Sulfate 324 Mg Tablet.) 324 mg PO BID [facility] Last Admin: 08/29/24 08:02 Dose: 324 mg Documented By: GILLIAN Fluticasone/Vilanterol (Fluticasone/Vilanterol 200/25 Blst.W.Dev) 1 puff INHALE DAILY [facility] Last Admin: 08/29/24 07:33 Dose: 1 puff Documented By: JASIEL Folic Acid (Folic Acid 1 Mg Tablet) 1 mg PO DAILY [facility] Last Admin: 08/29/24 08:03 Dose: 1 mg Documented By: GILLIAN Gabapentin (Gabapentin 400 Mg Capsule) 800 mg PO TID [facility] Last Admin: 08/29/24 08:03 Dose: 800 mg Documented By: GILLIAN Guaifenesin/Codeine Phosphate (Guaifen/Codeine Sf 200/20/10ml 10 Ml Liquid) 5 ml PO Q6H [facility] Last Admin: 08/29/24 10:59 Dose: 5 ml Documented By: GILLIAN Guaifenesin/Dextromethorphan (Guaifenesin Dm 600/30 1 Tab Tab.Er.12h) 1 tab PO BID [facility] Last Admin: 08/29/24 08:02 Dose: 1 tab Documented By: GILLIAN Hydrocortisone (Hydrocortisone 2.5 % Rectal Cr 30 Gm Tube) 1 appl [place] BID [facility] Last Admin: 08/29/24 08:09 Dose: Not Given Documented By: GILLIAN Non-Admin Reason: Patient Refused Hydrocortisone (Hydrocortisone 1 % Ointment 28.35 Gm Tube) 1 appl TOPICAL BID [facility]; Protocol Last Admin: 08/29/24 08:09 Dose: Not Given Documented By: GILLIAN Non-Admin Reason: Patient Refused Insulin Glargine (Insulin Glargine,Hum.Rec.Anlog 100 Unit/Ml 10 Ml Vial) 30 unit SUBCUT DAILY [facility] Insulin Human Lispro (Insulin Lispro 100 Unit/Ml 3 Ml Vial) 0 unit SUBCUT QIDACHS [facility]; Protocol Last Admin: 08/29/24 12:01 Dose: 10 unit Documented By: GILLIAN Ketorolac Tromethamine (Ketorolac Tromethamine 15 Mg/Ml Vial) 15 mg IVPUSH Q6H PRN PRN Reason: Pain, Moderate(Pain Scale 4-6) Last Admin: 08/28/24 22:52 Dose: 15 mg Documented By: NAUN Lamotrigine (Lamotrigine 100 Mg Tablet) 200 mg PO BEDTIME [facility] Last Admin: 08/28/24 20:00 Dose: 200 mg Documented By: NAUN Lidocaine (Lidocaine 4 % Patch Adh..Patch) 2 patch TRANSDERMA DAILY [facility]; Protocol Last Admin: 08/29/24 07:58 Dose: 2 patch Documented By: GILLIAN Lorazepam (Lorazepam 0.5 Mg Tablet) 0.5 mg PO BID PRN PRN Reason: anxiety Last Admin: 08/28/24 10:20 Dose: 0.5 mg Documented By: RACHEL Losartan Potassium (Losartan Potassium 50 Mg Tablet) 50 mg PO DAILY [facility]; Protocol Last Admin: 08/29/24 08:04 Dose: 50 mg Documented By: GILILAN Magnesium Hydroxide (Milk Of Magnesia 30 Ml Oral.Susp) 30 ml PO DAILY PRN PRN Reason: Constipation Melatonin (Melatonin 3 Mg Tablet) 6 mg PO BEDTIME PRN PRN Reason: Insomnia Metformin HCl (Metformin Hcl Er 500 Mg Tab.Er.24h) 1,000 mg PO BID [facility] Last Admin: 08/29/24 08:04 Dose: 1,000 mg Documented By: GILLIAN Mirtazapine (Mirtazapine 30 Mg Tablet) 30 mg PO BEDTIME [facility] Last Admin: 08/28/24 19:59 Dose: 30 mg Documented By: NAUN Montelukast Sodium (Montelukast Sodium 10 Mg Tablet) 10 mg PO BEDTIME [facility] Last Admin: 08/28/24 20:00 Dose: 10 mg Documented By: NAUN Multivitamins/Vitamin C (Multivitamin Tablet) 1 tab PO BEDTIME [facility] Last Admin: 08/28/24 20:00 Dose: 1 tab Documented By: NAUN Ondansetron HCl (Ondansetron Hcl 4 Mg/2 Ml Vial) 4 mg IVPUSH Q8H PRN PRN Reason: Nausea and Vomiting Prednisone (Prednisone 20 Mg Tablet) 40 mg PO DAILY [facility] Last Admin: 08/29/24 08:05 Dose: 40 mg Documented By: GILLIAN Sertraline HCl (Sertraline Hcl 100 Mg Tablet) 200 mg PO DAILY [facility] Last Admin: 08/29/24 08:06 Dose: 200 mg Documented By: GILLIAN Sodium Chloride (0.9 % Sodium Chloride Flush 3 Ml Syringe) 3 ml IVFLUSH QSHIFT [facility] Last Admin: 08/29/24 08:08 Dose: 3 ml Documented By: GILLIAN Sucralfate (Sucralfate 1 Gm Tablet) 1 gm PO DAILY [facility] Last Admin: 08/29/24 08:06 Dose: 1 gm Documented By: GILLIAN Tiotropium [place] (Tiotropium [place] 2.5 Mcg 1 Puff/2.5 Mcg Mist.Inhal) 2 puff INHALE RDAILY [facility] Last Admin: 08/29/24 07:33 Dose: 2 puff Documented By: JASIEL Tramadol HCl (Tramadol Hcl 50 Mg Tablet) 50 mg PO QID PRN PRN Reason: Pain, Severe (Pain Scale 7-10) Last Admin: 08/29/24 12:31 Dose: 50 mg Documented By: GILLIAN Labs 08/29/24 06:53 08/29/24 06:53 Labs: Laboratory Results - last 24 hr 08/28/24 08/28/24 08/28/24 15:57 19:09 22:12 MCV MCH MCHC RDW Plt Count MPV Immature Gran % (Auto) Neut % (Auto) Lymph % (Auto) [place] % (Auto) Eos % (Auto) Baso % (Auto) Lymph # (Auto) [place] # (Auto) Eos # (Auto) Baso # (Auto) Abs Immat Gran (auto) Absolute Neuts (auto) Absolute Nucleated RBC Nucleated RBC % (auto) Anion Gap Estim Creat Clear Calc Estimated GFR POC Glucose 578 H* 389 H* 206 H Random Glucose Calcium 08/29/24 08/29/24 08/29/24 06:53 07:34 11:28 MCV 84.4 MCH 25.1 L MCHC 29.7 L RDW 15.5 Plt Count 238 MPV 10.6 Immature Gran % (Auto) 0.9 H Neut % (Auto) 78.0 H Lymph % (Auto) 12.8 L [place] % (Auto) 7.9 Eos % (Auto) 0.1 Baso % (Auto) 0.3 Lymph # (Auto) 1.9 [place] # (Auto) 1.2 Eos # (Auto) 0.0 Baso # (Auto) 0.1 Abs Immat Gran (auto) 0.14 H Absolute Neuts (auto) 11.7 H Absolute Nucleated RBC 0.000 Nucleated RBC % (auto) 0.0 Anion Gap 14 Estim Creat Clear Calc 99.4 Estimated GFR > 60 POC Glucose 163 H 455 H* Random Glucose 174 H Calcium 9.4 Assessment and Plan (1) Acute exacerbation of chronic obstructive airways disease: Status: Acute (2) Hyperglycemia due to type 2 diabetes mellitus: Status: Acute Plan 58 yo female with past medical history of COPD, asthma on supplemental 02 2LPM via [place], HLD, HTN, DMII, HEP-C, GERD, and anemia. Pt comes to ED with complaints of dry cough, and shortness of breath worsening over the last 2 weeks. She denies any fever, chills, nocturnal sweating, edema, sick contacts, N/V/D or recent travel. acute COPD exacerbation still feeling dyspneic, desat with minimal exertion, wheezing and not ready to be home Continue supplemental 02 Continue duonebs, and inhalers cough medicine On montelukast, continue PO steroids wean O2 down as tolerated HTN Continue home diltiazem, losartan, furosemide HLD Continue statin DMII with hyperglycemia Hold home metformin and Trulicity High HbA1c of 10.7 Lantus increased to 30 units give more Lantus and Humalog Add sliding scale POC TIDAC Chronic pain Continue Tramadol, lidocaine patches GERD Continue PPI Mental health Continue home meds Hep C not currently treating Anemia not currently treating Code status: Full DVT porphylaxis: lovenox The patient will need overnight stay for severe COPD with exacerbation pending clinical improvement and increase exertion tolerance Quality Stroke Does the patient have a stroke diagnosis?: No VTE Prior VTE?: No VTE Risk Level:: Medical - moderate - high VTE Device Contraindication: Treatment Not Indicated VTE Drug Contraindication: N/A - Med Ordered
[2024-08-29 14:29] LABS: Glucose, Whole Blood 465 mg/dL (60-115)
[2024-08-29] MEDS: Enoxaparin Sodium 40 MG/0.4 ML SYRINGE SUBCUT (15:08)
[2024-08-29] MEDS: Ketorolac Tromethamine 15 MG/ML VIAL IVPUSH ×2 (16:04→22:58)
[2024-08-29 16:31] LABS: Glucose, Whole Blood 298 mg/dL (60-115)
[2024-08-29 20:10] LABS: Glucose, Whole Blood 274 mg/dL (60-115)
[2024-08-29] MEDS: lamoTRIgine 100 MG TABLET 200 MG PO (20:46)
[2024-08-29] MEDS: Montelukast Sodium 10 MG TABLET PO (20:46)
[2024-08-29] MEDS: Multivitamin TABLET 1 TAB PO (20:47)
[2024-08-29] MEDS: Mirtazapine 30 MG TABLET PO (20:47)
[2024-08-29] MEDS: bisacodyL 5 MG TABLET.DR 10 MG PO (20:48)
[2024-08-29] MEDS: Aspirin Enteric Coated 81 MG TABLET.DR PO (20:49)
[2024-08-29] MEDS: Atorvastatin Calcium 20 MG TABLET PO (20:49)
[2024-08-29] MEDS: LORazepam 0.5 MG TABLET PO (20:57)
[2024-08-30] VITALS (13 sets, daily range): BP systolic 122–142; BP diastolic 58–99; PULSE 91–110; RESP 14–24; TEMP 36.1–36.6; O2SAT 91–99
[2024-08-30] MEDS: Albuterol/Iprat 2.5/0.5MG 3 ML AMPUL.NEB INHALE ×6 (03:44→23:32)
[2024-08-30] MEDS: guaiFEN/Codeine SF 200/20/10ML 10 ML LIQUID 5 ML PO ×4 (03:52→20:14)
[2024-08-30] MEDS: Fluticasone/Vilanterol 200/25 BLST.W.DEV 1 PUFF INHALE (07:22)
[2024-08-30] MEDS: Tiotropium Bromide 2.5 mcg 1 PUFF/2.5 MCG MIST.INHAL 2 PUFF INHALE (07:23)
--- NOTE | 2024-08-30 07:39 | P.CDIM_ITS ---
PROVIDER RESPONSE TEXT: To clarify, the appropriate diagnosis supported by the clinical indicators: Diabetes mellitus Type 2: w hyperglycemia QUERY TEXT: PHYSICIAN'S DOCUMENTATION REQUEST Date of Query: 08/29/2024 09:37 AM EST Patient Name: Lilliam Geller Admit Date: 08/28/2024 Dear Munira Angel MD, A review of the medical record indicates additional documentation may be needed. Please review below and update the documentation accordingly. Clinical Indicators: LABS: POC glucose 287 578 H 389 H Insulin DMII Please clarify the following regarding the Complications of Diabetes Mellitus (DM): Diabetes mellitus Type 2 with hyperglycemia possible, probable, etc. Diabetes mellitus Type 2 uncontrolled, poorly controlled etc. Other (explain) Clinically unable to determine (explain) Thank you, Rula Adams, CCS, CDIS Use of terms such as suspected, likely, concern for, or probable (associated with a specific diagnosi s that is being evaluated, monitored, or treated as if it exists) are acceptable and can be coded in the inpatient se tting, when documented at the time of discharge. Please use your independent medical judgment in providing your response. THIS QUERY IS PART OF THE PERMANENT MEDICAL RECORD
[2024-08-30 07:51] LABS: Glucose, Whole Blood 166 mg/dL (60-115)
[2024-08-30] MEDS: Lidocaine 4 % Patch ADH..PATCH 2 PATCH TRANSDERMA (08:37)
[2024-08-30] MEDS: Insulin Lispro 100 UNIT/ML 3 ML VIAL SUBCUT ×4 (08:38→20:14)
[2024-08-30] MEDS: Insulin Glargine,Hum.rec.anlog 100 UNIT/ML 10 ML VIAL 30 UNIT SUBCUT (08:38)
[2024-08-30] MEDS: guaiFENesin DM 600/30 1 TAB TAB.ER.12H PO ×2 (08:39→20:01)
[2024-08-30] MEDS: Docusate Sodium 100 MG CAPSULE PO (08:39)
[2024-08-30] MEDS: Gabapentin 400 MG CAPSULE 800 MG PO ×3 (08:39→20:03)
[2024-08-30] MEDS: buPROPion HCl XL 300 MG TAB.ER.24H PO (08:40)
[2024-08-30] MEDS: Sucralfate 1 GM TABLET PO (08:40)
[2024-08-30] MEDS: metFORMIN HCl ER 500 MG TAB.ER.24H 1000 MG PO ×2 (08:40→20:02)
[2024-08-30] MEDS: Folic Acid 1 MG TABLET PO (08:40)
[2024-08-30] MEDS: Losartan Potassium 50 MG TABLET PO (08:40)
[2024-08-30] MEDS: Dicyclomine HCl 10 MG CAPSULE PO ×2 (08:40→20:03)
[2024-08-30] MEDS: Ferrous Sulfate 324 MG TABLET.DR PO ×2 (08:40→20:03)
[2024-08-30] MEDS: Lipase/Prot/Amylase 24/76/120K 1 CAP CAPSULE.DR 2 CAP PO ×4 (08:40→20:03)
[2024-08-30] MEDS: predniSONE 20 MG TABLET 40 MG PO (08:40)
[2024-08-30] MEDS: Sertraline HCL 100 MG TABLET 200 MG PO (08:41)
[2024-08-30] MEDS: dilTIAZem HCL CD 180 MG CAP.ER.24H PO (08:41)
[2024-08-30] MEDS: Benzonatate 100 MG CAPSULE PO ×3 (08:41→20:03)
[2024-08-30] MEDS: 0.9 % Sodium Chloride Flush 3 ML SYRINGE IVFLUSH ×3 (08:43→20:03)
[2024-08-30] MEDS: traMADoL HCL 50 MG TABLET PO ×3 (08:46→20:02)
[2024-08-30 11:37] LABS: Glucose, Whole Blood 246 mg/dL (60-115)
[2024-08-30] MEDS: Enoxaparin Sodium 40 MG/0.4 ML SYRINGE SUBCUT (14:26)
[2024-08-30] MEDS: methylPREDNISolone Sod Succ 40 MG/ML VIAL IVPUSH ×2 (14:26→20:14)
--- NOTE | 2024-08-30 14:45 | MHC.CM.PN ---
EMR REVIEWED AND PER MD ROUNDS, PT HAS NOT BEEN MEDICALLY CLEARED FOR DC HOME (WHEEZING, SOB CONTINUES) CM WILL CONTINUE TO FOLLOW FOR ANY CHANGE TO DC
--- NOTE | 2024-08-30 14:46 | HO.PM.IMPN ---
Subjective Subjective Date of Service: 08/30/24 Interval History: seen and evaluated still reporting dyspnea, cough and SOB and sounds wheezy from the door of her room CPAP not been placed last night no other events Review of Systems Review of Systems: Yes all other systems are reviewed and are negative Physical Exam Vital Signs: Vital Signs: Last Vital Signs Temp 97.4 F 08/30/24 11:24 Pulse 100 08/30/24 12:01 Resp 18 08/30/24 12:01 BP 138/84 08/30/24 11:24 Pulse Ox 91 L 08/30/24 11:24 O2 Del Method Nasal Cannula 08/30/24 11:24 O2 Flow Rate 2.0 08/30/24 11:24 Oxygen Flow Rate 2 08/27/24 09:46 BMI result Body Mass Index 48.6 Const: Other: Constitutional : Awake, interactive, not in distress Neck : Normal inspection, Supple Cardiovascular : RRR, no JVP, no lower extremity edema Respiratory : decreased bilateral air entry, no crackles, bilateral expiratory wheezes Gastrointestinal: soft, lax, Normal bowel sounds, Non tender Skin : Warm, Dry Neurological : Alert & oriented x3, No focal deficit Objective Data Active Medications Acetaminophen (Acetaminophen 325 Mg Tablet) 650 mg PO Q6H PRN PRN Reason: Pain, Mild 1-3,fever,headache Albuterol Sulfate (Albuterol Sulfate (0.083%) 2.5 Mg/3 Ml Vial.Neb) 2.5 mg INHALE Q4H PRN PRN Reason: Wheezing Last Admin: 08/29/24 05:15 Dose: 2.5 mg Documented By: PAULY Albuterol/Ipratropium (Albuterol/Iprat 2.5/0.5mg 3 Ml Ampul.Neb) 3 ml INHALE Q4H [facility] Last Admin: 08/30/24 12:01 Dose: 3 ml Documented By: NANETTE Lipase/Protease/Amylase (Lipase/Prot/Amylase 24/76/120k 1 Cap Capsule.) 2 cap PO QID [facility] Last Admin: 08/30/24 12:56 Dose: 2 cap Documented By: KIMBERLEY Aspirin (Aspirin Enteric Coated 81 Mg Tablet.) 81 mg PO BEDTIME [facility] Last Admin: 08/29/24 20:49 Dose: 81 mg Documented By: WINSTON Atorvastatin Calcium (Atorvastatin Calcium 20 Mg Tablet) 20 mg PO BEDTIME [facility] Last Admin: 08/29/24 20:49 Dose: 20 mg Documented By: WINSTON Benzonatate (Benzonatate 100 Mg Capsule) 100 mg PO TID [facility] Last Admin: 08/30/24 14:26 Dose: 100 mg Documented By: KIMBERLEY Bisacodyl (Bisacodyl 5 Mg Tablet.) 10 mg PO BEDTIME [facility] Last Admin: 08/29/24 20:48 Dose: 10 mg Documented By: WINSTON Bupropion HCl (Bupropion Hcl Xl 300 Mg Tab.Er.24h) 300 mg PO DAILY [facility] Last Admin: 08/30/24 08:40 Dose: 300 mg Documented By: KIMBERLEY Calcium Carbonate (Calcium Carbonate 750 Mg Tab.Chew) 750 mg PO Q4H PRN PRN Reason: Heartburn Dicyclomine HCl (Dicyclomine Hcl 10 Mg Capsule) 10 mg PO BID [facility] Last Admin: 08/30/24 08:40 Dose: 10 mg Documented By: KIMBERLEY Diltiazem HCl (Diltiazem Hcl Cd 180 Mg Cap.Er.24h) 180 mg PO DAILY [facility]; Protocol Last Admin: 08/30/24 08:41 Dose: 180 mg Documented By: KIMBERLEY Docusate Sodium (Docusate Sodium 100 Mg Capsule) 100 mg PO DAILY [facility] Last Admin: 08/30/24 08:39 Dose: 100 mg Documented By: KIMBERLEY Enoxaparin Sodium (Enoxaparin Sodium 40 Mg/0.4 Ml Syringe) 40 mg SUBCUT Q24H [facility] Last Admin: 08/30/24 14:26 Dose: 40 mg Documented By: KIMBERLEY Ferrous Sulfate (Ferrous Sulfate 324 Mg Tablet.) 324 mg PO BID [facility] Last Admin: 08/30/24 08:40 Dose: 324 mg Documented By: KIMBERLEY Fluticasone/Vilanterol (Fluticasone/Vilanterol 200/25 Blst.W.Dev) 1 puff INHALE DAILY [facility] Last Admin: 08/30/24 07:22 Dose: 1 puff Documented By: NANETTE Folic Acid (Folic Acid 1 Mg Tablet) 1 mg PO DAILY [facility] Last Admin: 08/30/24 08:40 Dose: 1 mg Documented By: KIMBERLEY Gabapentin (Gabapentin 400 Mg Capsule) 800 mg PO TID [facility] Last Admin: 08/30/24 14:26 Dose: 800 mg Documented By: KIMBERLEY Guaifenesin/Codeine Phosphate (Guaifen/Codeine Sf 200/20/10ml 10 Ml Liquid) 5 ml PO Q6H [facility] Last Admin: 08/30/24 11:17 Dose: 5 ml Documented By: ADELSO Guaifenesin/Dextromethorphan (Guaifenesin Dm 600/30 1 Tab Tab.Er.12h) 1 tab PO BID [facility] Last Admin: 08/30/24 08:39 Dose: 1 tab Documented By: KIMBERLEY Hydrocortisone (Hydrocortisone 2.5 % Rectal Cr 30 Gm Tube) 1 appl MA BID [facility] Last Admin: 08/30/24 08:54 Dose: Not Given Documented By: KIMBERLEY Non-Admin Reason: Patient Refused Hydrocortisone (Hydrocortisone 1 % Ointment 28.35 Gm Tube) 1 appl TOPICAL BID [facility]; Protocol Last Admin: 08/30/24 08:54 Dose: Not Given Documented By: KIMBERLEY Non-Admin Reason: Patient Refused Insulin Glargine (Insulin Glargine,Hum.Rec.Anlog 100 Unit/Ml 10 Ml Vial) 30 unit SUBCUT DAILY [facility] Last Admin: 08/30/24 08:38 Dose: 30 unit Documented By: KIMBERLEY Insulin Human Lispro (Insulin Lispro 100 Unit/Ml 3 Ml Vial) 0 unit SUBCUT QIDACHS [facility]; Protocol Last Admin: 08/30/24 11:51 Dose: 6 unit Documented By: KIMBERLEY Ketorolac Tromethamine (Ketorolac Tromethamine 15 Mg/Ml Vial) 15 mg IVPUSH Q6H PRN PRN Reason: Pain, Moderate(Pain Scale 4-6) Last Admin: 08/29/24 22:58 Dose: 15 mg Documented By: WINSTON Lamotrigine (Lamotrigine 100 Mg Tablet) 200 mg PO BEDTIME [facility] Last Admin: 08/29/24 20:46 Dose: 200 mg Documented By: WINSTON Lidocaine (Lidocaine 4 % Patch Adh..Patch) 2 patch TRANSDERMA DAILY [facility]; Protocol Last Admin: 08/30/24 08:37 Dose: 2 patch Documented By: KIMBERLEY Lorazepam (Lorazepam 0.5 Mg Tablet) 0.5 mg PO BID PRN PRN Reason: anxiety Last Admin: 08/29/24 20:57 Dose: 0.5 mg Documented By: WINSTON Losartan Potassium (Losartan Potassium 50 Mg Tablet) 50 mg PO DAILY [facility]; Protocol Last Admin: 08/30/24 08:40 Dose: 50 mg Documented By: KIMBERLEY Magnesium Hydroxide (Milk Of Magnesia 30 Ml Oral.Susp) 30 ml PO DAILY PRN PRN Reason: Constipation Melatonin (Melatonin 3 Mg Tablet) 6 mg PO BEDTIME PRN PRN Reason: Insomnia Metformin HCl (Metformin Hcl Er 500 Mg Tab.Er.24h) 1,000 mg PO BID [facility] Last Admin: 08/30/24 08:40 Dose: 1,000 mg Documented By: KIMBERLEY Methylprednisolone Sodium Succinate (Methylprednisolone Sod Succ 40 Mg/Ml Vial) 40 mg IVPUSH Q8H [facility] Last Admin: 08/30/24 14:26 Dose: 40 mg Documented By: KIMBERLEY Mirtazapine (Mirtazapine 30 Mg Tablet) 30 mg PO BEDTIME [facility] Last Admin: 08/29/24 20:47 Dose: 30 mg Documented By: WINSTON Montelukast Sodium (Montelukast Sodium 10 Mg Tablet) 10 mg PO BEDTIME [facility] Last Admin: 08/29/24 20:46 Dose: 10 mg Documented By: WINSTON Multivitamins/Vitamin C (Multivitamin Tablet) 1 tab PO BEDTIME [facility] Last Admin: 08/29/24 20:47 Dose: 1 tab Documented By: WINSTON Ondansetron HCl (Ondansetron Hcl 4 Mg/2 Ml Vial) 4 mg IVPUSH Q8H PRN PRN Reason: Nausea and Vomiting Sertraline HCl (Sertraline Hcl 100 Mg Tablet) 200 mg PO DAILY [facility] Last Admin: 08/30/24 08:41 Dose: 200 mg Documented By: KIMBERLEY Sodium Chloride (0.9 % Sodium Chloride Flush 3 Ml Syringe) 3 ml IVFLUSH QSHIFT [facility] Last Admin: 08/30/24 08:43 Dose: 3 ml Documented By: KIMBERLEY Sucralfate (Sucralfate 1 Gm Tablet) 1 gm PO DAILY [facility] Last Admin: 08/30/24 08:40 Dose: 1 gm Documented By: KIMBERLEY Tiotropium [place] (Tiotropium [place] 2.5 Mcg 1 Puff/2.5 Mcg Mist.Inhal) 2 puff INHALE [facility] Last Admin: 08/30/24 07:23 Dose: 2 puff Documented By: NANETTE Tramadol HCl (Tramadol Hcl 50 Mg Tablet) 50 mg PO QID PRN PRN Reason: Pain, Severe (Pain Scale 7-10) Last Admin: 08/30/24 12:56 Dose: 50 mg Documented By: KIMBERLEY Labs 08/29/24 06:53 08/29/24 06:53 Labs: Laboratory Results - last 24 hr 08/29/24 08/29/24 08/30/24 16:27 20:02 07:40 POC Glucose 298 H 274 H 166 H 08/30/24 11:27 POC Glucose 246 H Assessment and Plan (1) Hyperglycemia due to type 2 diabetes mellitus: Status: Acute (2) Acute exacerbation of chronic obstructive airways disease: Status: Acute Plan 58 yo female with past medical history of COPD, asthma on supplemental 02 2LPM via [place], HLD, HTN, DMII, HEP-C, GERD, and anemia. Pt comes to ED with complaints of dry cough, and shortness of breath worsening over the last 2 weeks. She denies any fever, chills, nocturnal sweating, edema, sick contacts, N/V/D or recent travel. acute COPD exacerbation still feeling dyspneic, desat with minimal exertion, wheezing and not ready to be home Continue supplemental 02 Switch steroids to IV Q8H Continue duonebs, and inhalers cough medicine ATC and PRN On montelukast wean O2 down as tolerated HTN Continue home diltiazem, losartan, furosemide HLD Continue statin DMII with hyperglycemia Hold home metformin and Trulicity High HbA1c of 10.7 Lantus increased to 30 units give more Lantus and Humalog Add sliding scale POC TIDAC Chronic pain Continue Tramadol, lidocaine patches GERD Continue PPI Mental health Continue home meds Hep C not currently treating Anemia not currently treating Code status: Full DVT porphylaxis: lovenox The patient will need overnight stay for severe COPD with exacerbation pending clinical improvement and increase exertion tolerance Quality Stroke Does the patient have a stroke diagnosis?: No VTE Prior VTE?: No VTE Risk Level:: Medical - moderate - high VTE Device Contraindication: Treatment Not Indicated VTE Drug Contraindication: N/A - Med Ordered
[2024-08-30 16:14] LABS: Glucose, Whole Blood 393 mg/dL (60-115)
[2024-08-30] MEDS: bisacodyL 5 MG TABLET.DR 10 MG PO (20:01)
[2024-08-30] MEDS: Mirtazapine 30 MG TABLET PO (20:01)
[2024-08-30] MEDS: Montelukast Sodium 10 MG TABLET PO (20:01)
[2024-08-30] MEDS: Aspirin Enteric Coated 81 MG TABLET.DR PO (20:01)
[2024-08-30] MEDS: LORazepam 0.5 MG TABLET PO (20:02)
[2024-08-30] MEDS: lamoTRIgine 100 MG TABLET 200 MG PO (20:03)
[2024-08-30] MEDS: Atorvastatin Calcium 20 MG TABLET PO (20:03)
[2024-08-30] MEDS: Multivitamin TABLET 1 TAB PO (20:03)
[2024-08-30 20:12] LABS: Glucose, Whole Blood 260 mg/dL (60-115)
[2024-08-31] VITALS (8 sets, daily range): BP systolic 132–146; BP diastolic 65–98; PULSE 94–117; RESP 13–18; TEMP 36–36.3; O2SAT 91–97
[2024-08-31] MEDS: Ketorolac Tromethamine 15 MG/ML VIAL IVPUSH (02:27)
[2024-08-31] MEDS: methylPREDNISolone Sod Succ 40 MG/ML VIAL IVPUSH (05:09)
[2024-08-31] MEDS: guaiFEN/Codeine SF 200/20/10ML 10 ML LIQUID 5 ML PO ×2 (05:09→09:50)
[2024-08-31 07:28] LABS: Glucose, Whole Blood 339 mg/dL (60-115)
[2024-08-31] MEDS: Insulin Lispro 100 UNIT/ML 3 ML VIAL SUBCUT ×2 (07:49→11:54)
[2024-08-31] MEDS: Insulin Glargine,Hum.rec.anlog 100 UNIT/ML 10 ML VIAL 30 UNIT SUBCUT (07:50)
[2024-08-31] MEDS: 0.9 % Sodium Chloride Flush 3 ML SYRINGE IVFLUSH (07:50)
[2024-08-31] MEDS: Tiotropium Bromide 2.5 mcg 1 PUFF/2.5 MCG MIST.INHAL 2 PUFF INHALE (08:16)
[2024-08-31] MEDS: Albuterol/Iprat 2.5/0.5MG 3 ML AMPUL.NEB INHALE ×2 (08:16→11:34)
[2024-08-31] MEDS: Fluticasone/Vilanterol 200/25 BLST.W.DEV 1 PUFF INHALE (08:16)
[2024-08-31] MEDS: Sertraline HCL 100 MG TABLET 200 MG PO (09:45)
[2024-08-31] MEDS: metFORMIN HCl ER 500 MG TAB.ER.24H 1000 MG PO (09:47)
[2024-08-31] MEDS: buPROPion HCl XL 300 MG TAB.ER.24H PO (09:47)
[2024-08-31] MEDS: Dicyclomine HCl 10 MG CAPSULE PO (09:48)
[2024-08-31] MEDS: Folic Acid 1 MG TABLET PO (09:48)
[2024-08-31] MEDS: Gabapentin 400 MG CAPSULE 800 MG PO (09:48)
[2024-08-31] MEDS: Docusate Sodium 100 MG CAPSULE PO (09:48)
[2024-08-31] MEDS: guaiFENesin DM 600/30 1 TAB TAB.ER.12H PO (09:48)
[2024-08-31] MEDS: Lipase/Prot/Amylase 24/76/120K 1 CAP CAPSULE.DR 2 CAP PO ×2 (09:49→13:28)
[2024-08-31] MEDS: Sucralfate 1 GM TABLET PO (09:50)
[2024-08-31] MEDS: Ferrous Sulfate 324 MG TABLET.DR PO (09:50)
[2024-08-31] MEDS: Benzonatate 100 MG CAPSULE PO (09:50)
[2024-08-31] MEDS: dilTIAZem HCL CD 180 MG CAP.ER.24H PO (09:51)
[2024-08-31] MEDS: Lidocaine 4 % Patch ADH..PATCH 2 PATCH TRANSDERMA (09:52)
[2024-08-31] MEDS: Losartan Potassium 50 MG TABLET PO (09:52)
--- NOTE | 2024-08-31 11:13 | MHC.CM.PN ---
PT TO DC HOME TODAY WITH NO SERVICES VIA PRIVATE TRANSPORT
--- NOTE | 2024-08-31 11:15 | P.DS_ITS ---
DS: Providers Provider Date of Service: 08/31/24 Date of admission: 08/28/24 15:40 Date of discharge: 08/31/24 Primary care physician: Dee Valenzuela MD DS: Diagnosis Discharge Diagnosis (1) Hyperglycemia due to type 2 diabetes mellitus: Status: Acute (2) Acute exacerbation of chronic obstructive airways disease: Status: Acute DS: Summary Hospital Course Hospital Course: Admission note HPI 58 yo female with past medical history of COPD, asthma on supplemental 02 2LPM via NC, HLD, HTN, DMII, HEP-C, GERD, and anemia. Pt comes to ED with complaints of dry cough, and shortness of breath worsening over the last 2 weeks. She denies any fever, chills, nocturnal sweating, edema, sick contacts, N/V/D or recent travel. Hospital course The patient was treated for acute COPD exacerbation and was treated with IV steroids, bronchodoilator nebulizers along with cough medicine and home inhalers. Had longer than expected course as she was feeling dyspneic, desat with minimal exertion, wheezing and not ready to be home. Weaned down O2 to 2L as tolerated. will be discharged home on tapering dose Prednisone, cough medicine and to continue inhaler and nebulizers as advised. She was also noted to have uncontrolled DMII with hyperglycemia. she is on metformin and Trulicity at home. High HbA1c of 10.3. Started on Lantus and SSI. Will be discharged on Lantus 20 units and SSI for now. to be followed by PCP. Discharge plan Continue tapering dose steroids Use home nebulizer every 4-6 hours for the next 3 dats then as needed Start Insulin Lantus (long acting) and Humalog (short acting) as prescribed follow with PCP for further adjustments of medications Time Attestation Discharge Coordination Time (in mins): 41 Quality: Safe Use of Opioids Does Pt have an Active Cancer Diagnosis on the Problem List?: No Quality: Stroke Does the patient have a stroke diagnosis?: No Physical Exam Vital Signs: Vital Signs: Last Vital Signs Temp 97.3 F 08/31/24 07:19 Pulse 94 08/31/24 09:51 Resp 18 08/31/24 08:16 BP 146/83 H 08/31/24 09:51 Pulse Ox 94 08/31/24 10:44 O2 Del Method Nasal Cannula 08/31/24 10:44 O2 Flow Rate 2 01/25/25 10:44 Oxygen Flow Rate 2 08/27/24 09:46 BMI result Body Mass Index 48.6 Const: Other: Constitutional : Awake, interactive, not in distress Neck : Normal inspection, Supple Cardiovascular : RRR, no JVP, no lower extremity edema Respiratory : improved bilateral air entry, no crackles, scattered expiratory wheezes Gastrointestinal: soft, lax, Normal bowel sounds, Non tender Skin : Warm, Dry Neurological : Alert & oriented x3, No focal deficit DS: Data Data Completed and Pending Completed studies during hospitalization [Text1]: Procedures Introduction of Remdesivir Anti-infective into Peripheral Vein, Percutaneous Approach, [employer] 5 (08/12/21) Labs on day of discharge: Laboratory Results - last 24 hr 08/30/24 08/30/24 08/30/24 11:27 16:10 20:08 POC Glucose 246 H 393 H* 260 H 08/31/24 07:17 POC Glucose 339 H Imaging Chest x-ray: Radiologist's impression: ITS Impressions Chest X-Ray 08/27/24 10:23 IMPRESSION: IMPRESSION: Mild pulmonary vascular congestion. Heart size is normal. . Electronically signed by: Gage Bolton MD 08/27/2024 12:31 PM [facility] [place] Discharge Plan Discharge Anticipated Discharge Date/Time: 08/31/24 10:57 Patient Disposition: Home, Self-Care Discharge Diagnosis: COPD exacerbation Uncontrolled diabetes Referrals: Dee Valenzuela MD [Primary Care Provider] - 1 Week Discharge Medications: New lidocaine [Lidocaine Pain Relief] 4 % Adhesive Patch,Medicated 2 patch transdermal DAILY Qty: 30 1RF Protocol: Apply to: Apply to: lower back benzonatate 100 mg Capsule 100 mg PO TID Qty: 21 0RF prednisone 10 mg tablet See Taper PO DIRECTED Qty: 30 0RF Taper: Prednisone 40 mg daily for 3 Days and 0 Hour 30 mg daily for 3 Days and 0 Hour 20 mg daily for 3 Days and 0 Hour 10 mg daily for 3 Days and 0 Hour Rx Instructions: see taper instructions (DME) blood-glucose meter [FreeStyle Lite Meter] Kit See Rx Instructions .ROUTE .MEDSUPPLY Qty: 1 0RF Rx Instructions: As directed alcohol swabs [Alcohol Pads] Pads, Medicated 1 pad topical QIDACHS Qty: 200 0RF (DME) FreeStyle Lite Strips Strip See Rx Instructions .ROUTE .MEDSUPPLY Qty: 100 0RF Rx Instructions: QID insulin aspart U-100 100 unit/mL (3 mL) insulin pen See Protocol subcut USEASDIRECTD Qty: 15 0RF Protocol: Insulin Correction Scale Less than or equal to 110 ---- Give (units): 0 111 to 150 Give (units): 0 151 to 200 Give (units): 2 201 to 250 Give (units): 4 251 to 300 Give (units): 6 301 to 350 Give (units): 8 Greater than 350 Give (units): 10 Call MD if Blood Glucose > : 350 (DME) lancets [facility] [place], [place] See Rx Instructions .ROUTE .MEDSUPPLY Qty: 200 0RF Rx Instructions: 4 times daily (DME) pen needle, diabetic [Pen Needle] 31 gauge x 5/16 needle See Rx Instructions .ROUTE .MEDSUPPLY Qty: 1200 0RF Rx Instructions: As directed insulin glargine 100 unit/mL (3 mL) insulin pen 20 unit subcut QAM Qty: 15 0RF Continued docusate sodium [Stool Softener] 100 mg capsule 100 mg PO DAILY Qty: 30 6RF bisacodyl 5 mg tablet,delayed release (DR/EC) 10 mg PO BEDTIME Qty: 180 1RF aspirin 81 mg tablet,delayed release (DR/EC) 81 mg PO BEDTIME ferrous sulfate [FeroSul] 325 mg (65 mg iron) tablet 1 tab PO BID multivitamin Tablet 1 tab PO BEDTIME albuterol sulfate 2.5 mg /3 mL (0.083 %) solution for nebulization 1 amp inhalation Q6H PRN (Reason: wheezing) losartan 50 mg tablet 50 mg PO DAILY lamotrigine 200 mg tablet 200 mg PO BEDTIME ketoconazole 2 % shampoo 1 appl TOPICAL MOWE diltiazem HCl 180 mg capsule,extended release 24hr 180 mg PO DAILY hydrocortisone 1 % ointment 1 appl topical BID sucralfate 1 gram tablet 1 g PO DAILY sertraline 100 mg tablet 200 mg PO DAILY tramadol 50 mg tablet 50 mg PO TID PRN (Reason: pain) simvastatin 40 mg tablet 40 mg PO BEDTIME ondansetron 8 mg tablet,disintegrating 8 mg PO BID-TID PRN (Reason: nausea/vomiting) lorazepam 0.5 mg tablet 0.5 mg PO BID PRN (Reason: anxiety) gabapentin 800 mg tablet 800 mg PO TID dicyclomine 20 mg tablet 20 mg PO QID mirtazapine 30 mg tablet 30 mg PO BEDTIME montelukast 10 mg tablet 10 mg PO BEDTIME albuterol sulfate [Ventolin HFA] 90 mcg/actuation HFA aerosol inhaler 2 puff INHALATION Q6H metformin 500 mg tablet extended release 24 hr 1,000 mg PO BID bupropion HCl 300 mg tablet extended release 24 hr 300 mg PO DAILY tiotropium bromide [Spiriva with HandiHaler] 18 mcg capsule, w/inhalation device 1 cap inhalation DAILY hydrochlorothiazide 12.5 mg tablet 12.5 mg PO Q OTHER DAY Dulera 200-5 mcg/actuation HFA aerosol inhaler 2 puff INHALATION BID Trulicity 1.5 mg/0.5 mL pen injector 1.5 mg subcut SA Nucala 100 mg/mL auto-injector 100 mg SUBCUT Q28W hydrocortisone 2.5 % cream with perineal applicator 1 appl [place] BID folic acid 1 mg Tablet 1 mg PO DAILY Creon 24,000-76,000 -120,000 unit capsule,delayed release(DR/EC) 2 cap PO QID (DME) lancets [TRUEplus Lancets] 33 gauge misc See Rx Instructions .ROUTE QID Qty: 100 Rx Instructions: As directed (DME) FreeStyle Lite Strips Strip See Rx Instructions .ROUTE QID Qty: 10 Rx Instructions: As directed Discontinued prednisone 10 mg tablet See Taper PO DAILY Taper: Prednisone 20 mg daily for 2 Days and 0 Hour 10 mg daily for 2 Days and 0 Hour Discharge Orders: Discharge Order (Routine); Ordered 08/31/24 Ordered By: Munira Angel Diet: Diabetic diet Activity on Discharge: As tolerated Stand Alone Forms: Patient Portal Discharge page Print Language: Irish Care Plan Goals: Continue tapering dose steroids Use home nebulizer every 4-6 hours for the next 3 dats then as needed Start Insulin Lantus (long acting) and Humalog (short acting) as prescribed follow with PCP for further adjustments of medications Health Concerns: COPD Diabetes Plan of Treatment: Steroids Insulin Assessment: as above
[2024-08-31 11:27] LABS: Glucose, Whole Blood 538 mg/dL (60-115)
[2024-08-31] MEDS: Insulin Lispro 100 UNIT/ML 3 ML VIAL 10 UNIT SUBCUT (11:54)
[2024-08-31] MEDS: traMADoL HCL 50 MG TABLET PO (13:28)
== END 2024-08-31 14:51 | disposition home or self-care (01) | DRG 192 ==
LOC: HO.ED 13:41 → HO.EDOVER 14:45 → HO.S3 08-28 13:58
PROVIDERS: Physician Assistant; Admitting Provider Student in an Organized Health Care Education/Training Program; Emergency Provider Emergency Medicine; PCP Internal Medicine; Visit Provider Student in an Organized Health Care Education/Training Program
DX: J44.1 Chronic obstructive pulmonary disease with (acute) exacerbation (principal); K21.9 Gastro-esophageal reflux disease without esophagitis; E11.65 Type 2 diabetes mellitus with hyperglycemia; G89.29 Other chronic pain; Z20.822 Contact with and (suspected) exposure to COVID-19; Z79.4 Long term (current) use of insulin; Z79.82 Long term (current) use of aspirin; Z79.84 Long term (current) use of oral hypoglycemic drugs; Z79.85 Long-term (current) use of injectable non-insulin antidiabetic drugs; Z79.899 Other long term (current) drug therapy
CPT/HCPCS: 0241U; 36415; 71045; 80048; 80076; 81001; 81003; 82947; 83036; 83690; 83735; 83880; 84484; 85025; 93005; 94660; 99221; 99285; J1650; J1885; J2270; J2919; J3475

== ENCOUNTER → 2024-08-27 10:23 | Outpatient (BNV) | payer MEDICARE, MEDICAID, SELFPAY | PROVIDERS: Emergency Provider Emergency Medicine; PCP Internal Medicine; Visit Provider Radiology Diagnostic Radiology | DX: J81.1 Chronic pulmonary edema (principal) | CPT/HCPCS: 71045 ==

== ENCOUNTER → 2024-08-27 10:23 | Outpatient (BNV) | payer MEDICARE, MEDICAID, SELFPAY | PROVIDERS: Admitting Provider Student in an Organized Health Care Education/Training Program; Emergency Provider Emergency Medicine; PCP Internal Medicine; Visit Provider Internal Medicine Cardiovascular Disease | DX: R94.31 Abnormal electrocardiogram [ECG] [EKG] (principal) | CPT/HCPCS: 93010 ==

== ENCOUNTER → 2024-08-27 14:28 | Outpatient (BNV) | payer MEDICARE, MEDICAID, SELFPAY | PROVIDERS: Admitting Provider Student in an Organized Health Care Education/Training Program; Emergency Provider Emergency Medicine; PCP Internal Medicine; Visit Provider Student in an Organized Health Care Education/Training Program | DX: J44.1 Chronic obstructive pulmonary disease with (acute) exacerbation (principal); E11.65 Type 2 diabetes mellitus with hyperglycemia | CPT/HCPCS: 99232 ==

== ENCOUNTER 2025-01-03 11:07 | Outpatient (AMB) | payer MEDICARE, MEDICAID, SELFPAY ==
--- NOTE | 2025-01-03 11:08 | MHC.OFFVIS ---
Vital Signs 01/03/25 11:09 Height 5 ft 3 in Weight 276 lb 10 oz BMI 49.0 BP 106/60 Blood Pressure Location Rt brachial Position Sitting Pulse 100 Pulse Source Pulse Oximeter Pulse Oximetry (%) 82 L Oxygen Delivery Method Room Air Intake Visit Reasons: Follow up medication Intake Note: Patient follow up for medication check. Patient cc: C.O. epigastric pain, GERD, rare episodes of nausea and vomiting (~ 1-2 weeks). Pt also reports some mild to moderate difficulty breathing and has a hx of COPD. Low 02 via pulse ox noticed. Reported to the provider and determined that pt should be placed on 2 LPM via NC as she also uses this at home pt reports. Noticeable improvement. Perioperative Assistant Required: Yes Perioperative Assistant Services: Perioperative Assistant Present Perioperative Assistant Name: [id number] Hayder Information Interpreted: clinical only Accompanied by: Self / Same As Patient Allergies No Known Allergies Allergy (Verified 01/03/25 11:10) HPI HPI Follow up medication: Details: Assessment & Plan (1) Irritable bowel syndrome with both constipation and diarrhea: Comment: More CIC Code(s): K58.2 - Mixed irritable bowel syndrome (2) Delayed gastric emptying: Code(s): K30 - Functional dyspepsia (3) GERD (gastroesophageal reflux disease): Code(s): K21.9 - Gastro-esophageal reflux disease without esophagitis Qualifiers: Esophagitis presence: without esophagitis Qualified Code(s): K21.9 - Gastro-esophageal reflux disease without esophagitis (4) Colon cancer screening: Code(s): Z12.11 - Encounter for screening for malignant neoplasm of colon Plan Somali #Nasrin Live Needs cologuard She says she has been seen in the ER and by her PCP as she is having a new pain that starts in the mid abdomen and spreads around to her back. She also has been seeing blood in her stools. The pain is 7/10, and is constant even when she is laying and sleeping. It will also radiate down her legs. It is stabbing. She has been out of her Dexilant and zofran ? r/t PA. She has been calling and leaving messages on the w /o any reply. The pharmacy advised her that they needed a PA, but did not tell us. This is frustrating her. With discussion, she has been out of her bentyl and dexilant and creon etc, so this is likely the reason she is having this problem. I will also send a hemorrhoid cream since her PCP declined to do so. I will get a cologuard test in the interim and try to reschedule the colonoscopy with Mirlalx/bisa prep. ROV 2 weeks. Medications: New hydrocortisone 2.5% (Proctosol HC) BE SURE TO INCLUDE RECTAL APPICATOR!! 1 appl KS BID 30 grams 6RF hemorrhoids K64.9 - Unspecified hemorrhoids Changed From lanbxs-ajgsbhjn-pugnkcs 24,000-76,000 -120,000 unit 2 caps PO QID 240 caps 6RF To gadvoo-olkoazpi-uiobbop 24,000-76,000 -120,000 unit (Creon) 2 caps PO QID 240 caps 6RF Refilled dexlansoprazole (Dexilant) 60 mg PO BEDTIME 90 caps 1RF 90 days docusate sodium 100 mg PO DAILY 30 caps 6RF ondansetron 8 mg PO BID-TID PRN 90 ea 6RF for nausea/vomiting dicyclomine 10 mg PO QID 120 ea 6RF sucralfate 1 g PO DAILY 30 tabs 6RF K58.2 - Mixed irritable bowel syndrome Discontinued doxycycline hyclate Discontinued Reason: Patient no longer taking 100 mg PO BID 7 days 14 tabs 0RF hydrocortisone acetate Discontinued Reason: Insurance Denied 25 mg KS BID 12 ea 0RF sodium,potassium,mag sulfates 17.5-3.13-1.6 gram Discontinued Reason: Doctor's Order 480 mL orally; 354 mL 0RF TODAY'S VISIT Somali #[id number] Hayder. She usually wears oxygen continuously at home. She forget her oxygen in the car and she is at Sa02 of 87%. We bring her oxygen for her visit. SHe is having a lot of epigastric pain, and she is not well acquainted with her medications saying only they put them in boxes and I take all that they give me. Her Dexilant seems to have fallen off of her list, likely because she does not know the names of the medications, so it may not have been refilled. I will start her and refill all of the medications in her GI regimen and re evaluate. Her current regimen is supposed to consist of Dexilant, Creon, sucralfate, Colace, dicyclomine, bisacodyl, and Zofran. ROV 6 weeks. [facility] Medical History (Updated 01/03/25 @ 13:46 by NOLAN Bullock) Low back pain Asthma exacerbation Hypoxemia Colon cancer screening Sinusitis COVID-19 COVID-19 High risk medication use Controlled substance agreement signed Medication monitoring encounter Velia albicans infection Abdominal pain Lab test positive for detection of COVID-19 virus COVID-19 Left elbow pain Nausea Abdominal bloating Obesity Bacterial pneumonia COPD (chronic obstructive pulmonary disease) Arthritis Multinodular thyroid Tubular adenoma of colon Chronic fatigue Asthma Bleeding hemorrhoid IBS (irritable bowel syndrome) Vitamin D deficiency Graves disease Hyperlipidemia HTN (hypertension) Diabetes Lumbar radiculopathy Anemia Osteoarthritis Morbid obesity GERD (gastroesophageal reflux disease) Hepatitis C Surgical History Hx of colonoscopy History of esophagogastroduodenoscopy (EGD) Hx of appendectomy Hx of cholecystectomy Family History Mother Diabetes HTN (hypertension) CVD (cardiovascular disease) Heart problem Father Diabetes Brother Autism History of open heart surgery CVD (cardiovascular disease) Diabetes Son Diabetes Maternal Grandmother Diabetes Maternal Grandfather Diabetes Social History Household Members: Spouse, Children and Other Housing: Apartment Are you a primary care aide to a significant other at home: No Do you presently have visiting nurse or other home services: No Alcohol intake: never Patient Tobacco Use Status: Never used Tobacco service: No Current occupational status: unemployed and disabled Current occupation: rt handed Review of Systems Const Denies fatigue, Denies fever(s), Denies night sweats, Denies poor appetite and Denies weight loss ENT Reports Normal hearing present, Denies dental pain, Denies dysphagia, Denies hearing loss, Denies mouth pain, Denies odynophagia, Denies throat swelling, Denies tongue swelling and Reports other (Dentition adequate) Card Reports no additional complaints and Reports dyspnea on exertion Resp Reports dyspnea on exertion GI Details: Denies abdominal pain, Denies melena, Reports bloating, Denies hematochezia, Reports constipation, Denies GI cramping, Denies dysphagia, Denies excessive flatus, Denies early satiety, Reports heartburn, Denies diarrhea, Denies nausea, Denies odynophagia, Denies vomiting and Denies hematemesis Skin/Breast Denies pruritus, Denies lesions, Denies rash and Denies jaundice Neuro Reports Normal hearing present and Denies Abnormal speech present Endo Denies fatigue Aller/Immun Denies throat swelling and Denies tongue swelling Physical Exam Vital Signs: Last Vital Signs Pulse 100 01/03/25 11:09 BP 106/60 01/03/25 11:09 Pulse Ox 82 L 01/03/25 11:09 Oxygen Delivery Method Room Air 01/03/25 11:09 BMI result Body Mass Index 49.0 Const General: cooperative, no acute distress, well developed and well groomed Nutritional Appearance: well nourished and obese morbidly obese Orientation/consciousness: oriented to person, oriented to place and oriented to time Limitations: language barrier and other limitations HEENT Head: Yes normocephalic and Yes atraumatic Eyes General: appearance normal, both eyes and all related structures Pupils: Equal, round and reactive pupils present Neck Neck: Yes normal visual inspection and Yes no lymphadenopathy Thyroid: Thyroid normal Resp Effort & Inspection: normal respiratory effort and able to speak in complete sentences Auscultation: clear to auscultation bilaterally Cardio Rate: regular rate Rhythm: regular rhythm Heart sounds: Normal, physiologic split S2 sound present Peripheral pulses: radial pulses present and posterior tibial pulses present GI Inspection: No distended, Yes Abdominal panniculus present and Yes obesity Palpation (GI): Soft to palpation, nontender, no guarding, not rigid and No hepatosplenomegaly present Percussion: Yes normal to percussion Auscultation: normal bowel sounds Rectal Exam - Female: deferred Skin General skin exam: no rashes or lesions noted, turgor normal, skin not dry, no jaundice, No spider nevi and no striae Rashes: no rashes Nails: normal Neuro General: oriented to person, oriented to place and oriented to time Cranial nerves: Yes Equal, round and reactive pupils present and Yes Normal hearing present Speech: No Abnormal speech present Extrem General: Yes normal to inspection, No clubbing, No cyanosis and No edema Psych Appearance: grossly normal and well kempt Mental Status: mental status grossly normal Speech and movement: Normal speech and movement present Affect: normal affect Attitude: cooperative Thought process: Normal thought process present and not confabulating Thought content: Normal thought content present Insight: Limited insight present (Psych) Judgement: Limited judgement present (Psych) Assessment & Plan Assessment & Plan (1) Irritable bowel syndrome with both constipation and diarrhea: Comment: More CIC Code(s): K58.2 - Mixed irritable bowel syndrome Category: Medical (2) GERD (gastroesophageal reflux disease): Code(s): K21.9 - Gastro-esophageal reflux disease without esophagitis Category: Medical Qualifiers: Esophagitis presence: without esophagitis Qualified Code(s): K21.9 - Gastro-esophageal reflux disease without esophagitis (3) Encounter for colorectal cancer screening using Cologuard test: Comment: We have sent it out twice a day she says someone stealing it from her porch/male area will try again Code(s): Z12.11 - Encounter for screening for malignant neoplasm of colon; Z12.12 - Encounter for screening for malignant neoplasm of rectum Category: Medical Plan Somali #[id number] Hayder. She usually wears oxygen continuously at home. She forget her oxygen in the car and she is at Sa02 of 87%. We bring her oxygen for her visit. SHe is having a lot of epigastric pain, and she is not well acquainted with her medications saying only they put them in boxes and I take all that they give me. Her Dexilant seems to have fallen off of her list, likely because she does not know the names of the medications, so it may not have been refilled. I will start her and refill all of the medications in her GI regimen and re evaluate. Her current regimen is supposed to consist of Dexilant, Creon, sucralfate, Colace, dicyclomine, bisacodyl, and Zofran. ROV 6 weeks. Medications: New dexlansoprazole (Dexilant) 60 mg PO DAILY 30 caps 12RF 30 days K21.9 - Gastro-esophageal reflux disease without esophagitis zvrigp-jbpmlibk-asjjwrg 25,000-79,000- 105,000 unit (Zenpep) 2 caps PO BID 120 caps 12RF dicyclomine 20 mg PO QID 120 tabs 12RF Refilled sucralfate 1 g PO DAILY 30 tabs 12RF bisacodyl 10 mg (2 x 5 mg) PO BEDTIME 180 tabs 1RF docusate sodium (Stool Softener) 100 mg PO DAILY 30 caps 12RF Coding Level of Care Code Est Pt Level 3 (75381) Diagnoses Irritable bowel syndrome with both constipation and diarrhea K58.2 GERD (gastroesophageal reflux disease) K21.9 Esophagitis presence: without esophagitis Encounter for colorectal cancer screening using Cologuard test Z12.11; Z12.12
[2025-01-03 11:09] VITALS: BP 106/60; PULSE 100; O2SAT 82; BMI 49.0
--- OUTSIDE RECORDS SUMMARY | 2025-01-03 12:03 | XMS_ITS | Encounter Summary ---
Author Organization [employer] Address [address] [place] [address] Care Team Providers Care Jaw Skinner Name Role Phone Dee Valenzuela MD Primary Care Provider [phone] Reason for Visit * Reason Onset Date Comments Appointment Request 04/02/2024 Encounter Details Date Type Department Care Team ([facility] st Contact Info) Description 04/02/2024 Telephone [facility] MEDICINE [address] [place] [address] Dee Valenzuela MD [address] [place] [address] Appointment Request Social History Tobacco Use Types Packs/Day Years Used Date Smoking Tobacco: Former Cigarettes Smokeless Tobacco: Never Alcohol Use Standard Drinks/Week Comments Never 0 (1 standard drink = 0.6 oz pur e alcohol) Depression Answer Date Recorded Patient Health Questionnaire-9 Score 17 07/20/2022 Housing Stability Answer Date Recorded What is your housing situation today? I have darrick ahuja 02/28/[address] you li ve. Do you have problems with any of the following? None of the above 02/28/2024 Food Insecurity Answer Date Recorded Within the past 12 months, y ou worried that your food would run out before you got money to buy more: Never True 02/28/2024 Within the past 12 months,th e food you bought just didn't last and you didn't have enough money to get more: Never True Transportation Answer Date Recorded In the past 12 months, has l ack of transportation kept you from medical appts, meetings, work or from getting things needed for daily living? No 02/28/2024 Utilities Answer Date Recorded In the past 12 months, has t he electric, gas, oil or water company threatened to shut off services in your home? No 02/28/2024 Depression Answer Date Recorded Patient Health Questionnaire-2 Score 4 07/20/2022 Comments Unknown Sex and Gender Information Value Date Recorded Sex Assigned at Female 06/06/2022 10:19 AM EDT Legal Sex Female 10:19 AM EDT Gender Identity Female 06/06/2022 10:19 AM EDT Sexual Orientation Straight 06/06/2022 10 :19 AM EDT documented as of this encounter Miscellaneous Notes * Telephone Encounter - Samuel Dietrich - 04/02/2024 8:32 AM EDT Tc from patient calling to cancel appt due to not feeling well and would like a call back to reschedule documented in this encounter Plan of Treatment Upcoming Encounters Date Type Department Care Team (Late st Contact Info) Description 03/24/2025 10:45 AM EDT Office Visit [facility] MED & PEDS [address] [place] [address] Dee Valenzuela MD [address] [place] [address] documented as of this encounter Visit Diagnoses Not on filedocumented in this encounter Additional Health Concerns Assessment Noted Time PHQ-9 Depression Total Score: 17 022 12:14 PM EST documented as of this encounter Care Teams Jaw Skinner Relationship Specialty Start Date End Date Dee Valenzuela MD [address] [place] [address] PCP - General Internal Medicine 10/11/13 documented as of this encounter
== END 2025-01-03 11:47 | disposition home or self-care (01) ==
LOC: HO.HGI 11:08
PROVIDERS: PCP Internal Medicine; Visit Provider Nurse Practitioner
DX: K58.2 Mixed irritable bowel syndrome (principal); K21.9 Gastro-esophageal reflux disease without esophagitis
CPT/HCPCS: 99213

== ENCOUNTER → 2025-01-03 11:07 | Outpatient (BNVA) | payer MEDICARE, MEDICAID, SELFPAY | PROVIDERS: PCP Internal Medicine; Visit Provider Nurse Practitioner | DX: Z12.11 Encounter for screening for malignant neoplasm of colon (principal); Z12.12 Encounter for screening for malignant neoplasm of rectum; K58.2 Mixed irritable bowel syndrome; K21.9 Gastro-esophageal reflux disease without esophagitis | CPT/HCPCS: 99212 ==

== ENCOUNTER 2025-01-15 09:31 | Outpatient (REF) | payer MEDICARE, MEDICAID, SELFPAY ==
[2025-01-15 09:58] LABS: MANUAL DIFF FLAG NO
--- OUTSIDE RECORDS SUMMARY | 2025-01-15 10:26 | XMS_ITS | Encounter Summary ---
Author Organization [employer] Address [address] [facility] [address] [place] [address] Care Team Providers Care Motor Builder Winder Name Role Phone Dee Valenzuela MD Primary Care Provider [phone] Reason for Visit * Reason Onset Date Comments Appointment Request 04/02/2024 Encounter Details Date Type Department Care Team ([facility] st Contact Info) Description 04/02/2024 Telephone [facility] MEDICINE [address] [place] [address] Dee Valenzuela MD [address] [place] [address] Appointment Request Social History Tobacco Use Types [...] Description 03/24/2025 10:45 AM EDT Office Visit [facility] MED & PEDS [address] [place] [address] Dee Valenzuela MD [address] [place] [address] documented as of this encounter Visit Diagnoses Not on filedocumented in this encounter Additional Health Concerns Assessment Noted Time PHQ-9 Depression Total Score: 17 022 12:14 PM EST documented as of this encounter Care Teams Motor Builder Winder Relationship Specialty Start Date End Date Dee Valenzuela MD [address] [place] [address] PCP - General Internal Medicine 10/11/13 documented as of this encounter
[2025-01-15 10:51] LABS: Basophils Percent Auto 0.3 % (0-2); Hematocrit 37.4 % (37.0-47.0); Hemoglobin 10.7 g/dl (12.0-16.0); Imm Gran Abs Auto 0.11 X10*3/uL (0.00-0.03); Imm Gran Pct Auto 1.2 % (0.0-0.4); Lymphocytes Absolute Auto 1.1 X10*3/uL (1.2-4.9); Lymphocytes Percent Auto 12.1 % (20-40); Mean Corpuscular HGB Conc 28.6 g/dl (31.0-35.0); Mean Corpuscular Hemoglobin 25.1 pg (27.0-33.0); Mean Corpuscular Volume 87.8 fL (80.0-98.0); Mean Platelet Volume 10.2 fL (9.4-12.3); Monocytes Absolute Auto 0.7 X10*3/uL (0.1-1.2); Monocytes Percent Auto 7.5 % (2-11); Neutrophils Percent Auto 78.9 % (45-73); Platelet Count 230 X10*3/uL (160-400); Red Blood Count 4.26 X10*6/uL (4.20-5.50); Red Cell Distribution Width 14.6 % (11.0-16.0); White Blood Count 8.9 X10*3/uL (4.8-10.8)
[2025-01-15 11:09] LABS: Alanine Aminotransferase 21 U/L (0-31); Albumin Level 4.1 g/dL (3.5-5.0); Alkaline Phosphatase 118 U/L (39-117); Anion Gap 9 (12-20); Aspartate Amino Transferase 21 U/L (5-31); Bilirubin Total 0.3 mg/dL (0.0-1.0); Blood Urea Nitrogen 11 mg/dL (9-16); C Reactive Protein 2.21 mg/dL (< or = 0.50); Calcium 8.9 mg/dL (8.4-10.2); Carbon Dioxide 37 mmol/L (22-29); Chloride 99 mmol/L (96-108); Estimated Glomerular Filt Rate > 60; Glucose Random 187 mg/dL (60-115); Potassium 4.2 mmol/L (3.3-5.1); Sodium 141 mmol/L (135-145); Total Protein 7.5 g/dL (6.5-8.0)
[2025-01-15 11:32] LABS: HBS Num1 1.05 mIU/mL (0-7.99); HBc Num1 0.06 S/CO (0.00-0.79); Hepatitis A Antibody IgM 0.28 Index (0-0.79); Hepatitis B Core Antibody Nonreactive (Nonreactive); Hepatitis B Surface Antigen Negative (Negative); ~HepC Num1 5.04 S/CO (0.00-0.79); ~Hepatitis A Antibody IgM Nonreactive (Nonreactive); ~Hepatitis B Surface Antibody NONREACTIVE (Nonreactive); ~Hepatitis C Antibody Reactive (Nonreactive)
[2025-01-15 11:33] LABS: Erythrocyte Sedimentation Rate 33 MM/HR (0-20)
[2025-01-18 02:38] LABS: TS Negative Control Passed; TS Panel A 0; TS Panel B 0; TS Positive Control Passed; TSpotTB Negative (Negative)
== END 2025-01-15 09:32 | disposition home or self-care (01) ==
LOC: HO.LAB 09:31
PROVIDERS: PCP Internal Medicine; Visit Provider Student in an Organized Health Care Education/Training Program
DX: M05.9 Rheumatoid arthritis with rheumatoid factor, unspecified (principal)
CPT/HCPCS: 36415; 80053; 85025; 85652; 86140; 86481; 86704; 86706; 86709; 86803; 87340

== ENCOUNTER 2025-01-21 08:11 | Outpatient (AMB) | payer MEDICARE, MEDICAID, SELFPAY ==
[2025-01-21 08:14] VITALS: BP 110/60; PULSE 88; O2SAT 88; BMI 49.6
--- NOTE | 2025-01-21 08:14 | A.OFFVIS_ITS ---
Vital Signs 01/21/25 08:14 Height 5 ft 3 in Weight 280 lb BMI 49.6 BP 110/60 Blood Pressure Location Rt brachial Position Sitting Pulse 88 Pulse Source Pulse Oximeter Pulse Oximetry (%) 88 L Oxygen Delivery Method Room Air Intake Visit Reasons: RA/OA Intake Note: Patient presents for follow up on RA/OA today. Patient complains of bilateral hand pain, can barely grab things with her hands. She also complains of bilateral heel pain. She states it's been getting progressively worse for 2 months. Explosives Detonator Required: Yes Explosives Detonator Name: [id number] Maryann Information Interpreted: clinical only Allergies No Known Allergies Allergy (Verified 01/21/25 08:21) HPI Comments Details: Patient is a 59-year-old female with diabetes, hypertension, hyperlipidemia, COPD, multinodular thyroid, history of tubular adenoma of the colon, GERD, fibromyalgia, polyarticular osteoarthritis and seropositive rheumatoid arthritis here today for follow up Interval History: Patient last seen 07/18/[address] Mi. At that time she had ran out of her Orencia and complaining of multiple joint pains especially her hands and her knees. There was no evidence of any synovitis on exam and the plan was to monitor her off DMARDs. Still has polyarticular joint pain Rheumatologic History: -ve ++CCP Methotrexate - 09/2018 -placed on hold 04/2021, discontinued due to anemia. Humira: July 2020-to 06/2023 ineffective Actemra 06/2023-08/2023 DC due to ins change Orencia 09/2023 ran out & didn't get renewed 04/2024 Current Rheumatology Medication(s): Tramadol 50mg qid Gabapentin 800mg tid [facility] Medical History (Updated 01/24/25 @ 09:33 by Luiza Staples MD) Low back pain Asthma exacerbation Hypoxemia Colon cancer screening Sinusitis COVID-19 COVID-19 Controlled substance agreement signed Medication monitoring encounter Velia albicans infection Abdominal pain Lab test positive for detection of COVID-19 virus COVID-19 Left elbow pain Nausea Abdominal bloating Obesity Bacterial pneumonia COPD (chronic obstructive pulmonary disease) Arthritis Multinodular thyroid Tubular adenoma of colon Chronic fatigue Asthma Bleeding hemorrhoid IBS (irritable bowel syndrome) Vitamin D deficiency Graves disease Hyperlipidemia HTN (hypertension) Diabetes Lumbar radiculopathy Anemia Osteoarthritis Morbid obesity GERD (gastroesophageal reflux disease) Hepatitis C Surgical History Hx of colonoscopy History of esophagogastroduodenoscopy (EGD) Hx of appendectomy Hx of cholecystectomy Family History Mother Diabetes HTN (hypertension) CVD (cardiovascular disease) Heart problem Father Diabetes Brother Autism History of open heart surgery CVD (cardiovascular disease) Diabetes Son Diabetes Maternal Grandmother Diabetes Maternal Grandfather Diabetes Social History Household Members: Spouse, Children and Other Housing: Apartment Are you a primary laboratory animal caretaker to a significant other at home: No Do you presently have visiting nurse or other home services: No Alcohol intake: never Patient Tobacco Use Status: Never used Tobacco service: No Current occupational status: unemployed and disabled Current occupation: rt handed Review of Systems Const Details: Review of Systems Constitutional: Denies fever, chills, weight loss ENT: Denies vision changes, eye pain or eye redness, dental caries, dry mouth GI: Denies nausea, vomiting, diarrhea, abdominal pain, change in BM Pulm: Denies SOB, VALENCIA, hemoptysis, wheezing Cards: Denies chest pain, palpitations Skin: Denies Raynaud's, rash, nail changes, photosensitivity, CARD CUTTER: Denies headaches, weakness, paresthesias, recurrent falls MSK: as per HPI All other systems reviewed and are unremarkable except noted above Physical Exam Vital Signs: Last Vital Signs Pulse 88 01/21/25 08:14 BP 110/60 01/21/25 08:14 Pulse Ox 88 L 01/21/25 08:14 Oxygen Delivery Method Room Air 01/21/25 08:14 BMI result Body Mass Index 49.6 Vital signs reviewed Physical Examination CONSTITUITIONAL Patient alert and cooperative. Well appearing and in no apparent painful distress HEENT Conjunctiva and sclera clear. No lymphadenopathy. CHEST/RESPIRATORY SYSTEM Normal respiratory effort and able to speak in complete sentences. Clear to auscultation bilaterally. No crackles, rales, rhonchi, wheezes heard. CARDIAC SYSTEM Regular rate and rhythm. S1 and S2 heard no murmurs. Radial pulses intact bilaterally MSK Hands * OA changes, no synovitis Wrists * Right Wrist: Full ROM. 70 degrees of wrist flexion, 80 degrees of wrist extension. No swelling or TTP * Left Wrist: Full ROM. 70 degrees of wrist flexion, 80 degrees of wrist extension. No swelling or TTP Elbows * Right Elbow: Full ROM. No swelling or TTP. No TTP of the medial and lateral epicondyles * Left Elbow: Full ROM. No swelling or TTP. No TTP of the medial and lateral epicondyles Shoulders * Decreased ROM bilaterally Knees * Right knee: Full ROM. No swelling noted. No TTP of the knee joint lie or pes anserine bursa * Left knee: Full ROM. No swelling noted. No TTP of the knee joint lie or pes anserine bursa. * Crepitations felt bilaterally Ankles * Right ankle: Good ankle dorsiflexion and plantar flexion. No swelling. No TTP of the ankle joint * Left ankle: Good ankle dorsiflexion and plantar flexion. No swelling. No TTP of the ankle joint Feet * Right foot: Negative squeeze test * Left foot: Negative squeeze test Tender points? * Tenderness to palpation of the bilateral trapezius, supraspinatus, anterior costochondral junctions, bilateral suboccipital muscle insertions SKIN No rashes Results Reviewed Results Reviewed: Laboratory Tests 03/19/24 07/16/24 01/15/25 10:21 10:33 09:56 WBC 8.9 RBC 4.26 Hgb 10.7 L Hct 37.4 Plt Count 230 ESR 33 H Sodium 141 Potassium 4.2 Chloride 99 Carbon Dioxide 37 H BUN 11 Creatinine 0.82 AST 21 ALT 21 Alkaline Phosphatase 118 H C-Reactive Protein 4.94 H 3.10 H 2.21 H Assessment & Plan Assessment & Plan (1) Seropositive rheumatoid arthritis: Comment: -ve ++CCP Methotrexate - 09/2018 -placed on hold 04/2021, discontinued due to anemia. Humira: July 2020-to 06/2023 ineffective Actemra 06/2023-08/2023 DC due to ins change Orencia 09/2023 ran out & didn't get renewed 04/2024 Code(s): M05.9 - Rheumatoid arthritis with rheumatoid factor, unspecified Category: Medical Plan: #Seropositive RA Patient is a 59 y.o. female with seropositive RA here today for follow up. No evidence of synovitis Plan - Continue to monitor off DMARDs - RTC 6 months - Labs before visit: CBC, CMP, ESR, CRP (2) Fibromyalgia, primary: Code(s): M79.7 - Fibromyalgia Category: Medical Plan: #Fibromyalgia Pain is likely due to her FM given no synovitis and positive FM tender points Plan - Gabapentin 800mg tid - Tramadol 50mg qid Plan I spent 28 minutes reviewing the record and labs, taking a history, examining the patient, discussing the treatment plan, ordering diagnostic work up and documenting in the medical record Coding Level of Care Code Est Pt Level 3 (11811) Complex EM visit Add On G2211 Diagnoses Seropositive rheumatoid arthritis M05.9 Fibromyalgia, primary M79.7
== END 2025-01-21 09:18 | disposition home or self-care (01) ==
LOC: HO.RHE 08:11
PROVIDERS: PCP Internal Medicine; Visit Provider Student in an Organized Health Care Education/Training Program
DX: M05.79 Rheumatoid arthritis with rheumatoid factor of multiple sites without organ or systems involvement (principal); M79.7 Fibromyalgia
CPT/HCPCS: 99213; G2211

== ENCOUNTER → 2025-01-21 08:11 | Outpatient (BNVA) | payer MEDICARE, MEDICAID, SELFPAY | PROVIDERS: PCP Internal Medicine; Visit Provider Student in an Organized Health Care Education/Training Program | DX: M05.9 Rheumatoid arthritis with rheumatoid factor, unspecified (principal); M79.7 Fibromyalgia | CPT/HCPCS: 99212 ==

== ENCOUNTER 2025-03-24 11:28 | Outpatient (REF) | payer MEDICARE, MEDICAID, SELFPAY ==
--- NOTE | ~2025-03-24 | XR_ITS ---
EXAMINATION: XR TOES 2 OR MORE VIEWS LEFT HISTORY: left big toe pain COMPARISON: Comparison is made with the prior examination of the left foot dated 01/12/2022. FINDINGS: Three views of the left foot are submitted. Osseous mineralization is normal. There is a comminuted intra-articular fracture of the proximal phalanx of the great toe. The joint spaces are preserved. The soft tissues are unremarkable. XR/XR toe LT min 2V IMPRESSION: Comminuted intra-articular fracture of the proximal phalanx of the great toe. Electronically signed by: Carter Deng MD 03/24/2025 01:15 PM EDT
--- OUTSIDE RECORDS SUMMARY | 2025-03-24 12:51 | XMS_ITS | Clinical Summary ---
Author Organization [facility] Address [address] [place] [id number] Care Team Providers Care Patient Care Provider Name Role Phone Unavailable Primary Care Provider Unavailabl e Social History Tobacco Use Types Packs/Day Years Used Date Smoking Tobacco: Never Assessed Comments Unknown Sex and Gender Information Value Date Recorded Sex Assigned at Not on file Legal Sex Female 6:13 PM EST Gender Identity Not on file Sexual Orientation Not on file Plan of Treatment Health Maintenance Due Date Last Done Comments Hepatitis C Virus Screening 1965 HIV Screening 10/26/1980 DTaP/Tdap/Td Vaccines (1 - Tdap) 10/26/1986 Hepatitis B Vaccines (1 of 3 - 19+ 3-dose series) 10/06 Pneumococcal Vaccines 50+ (1 of 1 - PCV) 10/26/2017 Zoster (Shingles) Vaccine (1 of 2) 10/26/2017 COVID-19 Vaccine ( - 2023- season) 2024
--- OUTSIDE RECORDS SUMMARY | 2025-03-24 12:51 | XMS_ITS | Encounter Summary ---
Author Organization [employer] Address [address] [facility] 7t [place] [address] Care Team Providers Care Baseboard Heating Installer Name Role Phone Dee Valenzuela MD Primary Care Provider [phone] Aggie Campuzano PharmD Unavailable [phone] Reason for Visit * Reason Onset Date Comments Appointment Request 04/02/2024 Encounter Details Date Type Department Care Team ([facility] st Contact Info) Description 04/02/2024 Telephone [facility] MED[facility] [address] [place] [address] Dee Valenzuela MD [address] [place] [address] Appointment Request Social History Tobacco Use Types Packs/Day Years Used Date Smoking Tobacco: Former Cigarettes Smokeless Tobacco: Never Alcohol Use Standard Drinks/Week Comments Never 0 (1 standard drink = 0.6 oz pur e alcohol) Depression Answer Date Recorded Patient Health Questionnaire-9 Score 17 07/20/2022 Housing Stability Answer Date Recorded What is your housing situation today? I have darrick sing 02/28/[address] you li [...] Care Team (Late st Contact Info) Description 03/26/2025 10:30 AM EDT Medication Management [facility] MED & PEDS [address] [place] [address] Aggie Campuzano, PharmD [address] [place] [address] 04/14/2025 11:15 AM EDT Office Visit [facility] [address] [place] [address] Dee Valenzuela MD [address] [place] [address] documented as of this encounter Visit Diagnoses Not on filedocumented in this encounter Additional Health Concerns Assessment Noted Time PHQ-9 Depression Total Score: 17 022 12:14 PM EST documented as of this encounter Care Teams Baseboard Heating Installer Relationship Specialty Start Date End Date Dee Valenzuela MD [address] [place] [address] PCP - General Internal Medicine 10/11/13 Aggie Campuzano, ClaraD [address] [place] [address] Pharmacist Pharmacy 02/12/25 documented as of this encounter
--- OUTSIDE RECORDS SUMMARY | 2025-03-24 12:51 | XMS_ITS | Clinical Summary ---
Author Organization [facility] Address [address] [facility] [address] [place] [address] Phone Care Team Providers Care Spark Plug Assembler Name Role Phone Unavailable Primary Care Provider Unavailabl e Social History Tobacco Use Types Packs/Day Years Used Date Smoking Tobacco: Never Assessed Education Answer Date Recorded Are you interested in more education? Not on kaylyn e 12/02/2022 Are you concerned about learning? Not on file 12/02/2022 No 12/02/2022 No 12/02/2022 Digital Access Answer Date Recorded No 01/03/2023 No 01/03/2023 No 01/03/2023 Reliable internet access at home? Not on file 01/03/2023 Device with a working camera? Not on file Comments Unknown Sex and Gender Information Value Date Recorded Sex Assigned at Not on file Legal Sex Female 12:08 PM EDT Gender Identity Not on file Sexual Orientation Not on file Plan of Treatment Not on file Medical Devices Not on file Insurance [facility] [address] [place] [address] [place] [address] [employer] Additional Source Comments The information contained in this document represents components of the legal health record. It is not the complete legal health record.[facility]
[2025-03-24 14:38] LABS: Uric Acid 6.3 mg/dL (2.4-5.7)
[2025-03-24 14:52] LABS: Vitamin B12 358 pg/mL (200-900)
== END 2025-03-24 11:29 | disposition home or self-care (01) ==
LOC: HO.CHCLDS 11:28
PROVIDERS: PCP Internal Medicine; Visit Provider Internal Medicine
DX: M79.675 Pain in left toe(s) (principal); E11.69 Type 2 diabetes mellitus with other specified complication; Z79.4 Long term (current) use of insulin
CPT/HCPCS: 36415; 73660; 82607; 84550; 85652; 86140

== ENCOUNTER → 2025-03-24 12:39 | Outpatient (BNV) | payer MEDICARE, MEDICAID, SELFPAY | PROVIDERS: PCP Internal Medicine; Visit Provider Radiology Diagnostic Radiology | DX: S92.412A Displaced fracture of proximal phalanx of left great toe, initial encounter for closed fracture (principal) | CPT/HCPCS: 73660 ==

== ENCOUNTER 2025-04-04 11:07 | Outpatient (AMB) | payer MEDICARE, MEDICAID, SELFPAY ==
[2025-04-04 11:16] VITALS: BP 130/66; PULSE 96; O2SAT 95; BMI 47.6
--- NOTE | 2025-04-04 11:16 | MHC.OFFVIS ---
Vital Signs 04/04/25 11:16 Height 5 ft 3 in Weight 269 lb BMI 47.6 BP 130/66 Pulse 96 Pulse Oximetry (%) 95 Intake Visit Reasons: 6 wks f/u Intake Note: Follow up epigastric pain and GERD Health Care Legal Assistant Required: Yes Health Care Legal Assistant Language: Color Expert Services: Health Care Legal Assistant Present (in person) Health Care Legal Assistant Name: Rowan ACOSTA Information Interpreted: non-clinical & clinical Accompanied by: Self / Same As Patient Allergies No Known Allergies Allergy (Verified 04/04/25 11:22) Post menopausal: Yes HPI HPI 6 wks f/u: Details: Assessment & Plan (1) Irritable bowel syndrome with both constipation and diarrhea: Comment: More CIC Code(s): K58.2 - Mixed irritable bowel syndrome Category: Medical (2) GERD (gastroesophageal reflux disease): Code(s): K21.9 - Gastro-esophageal reflux disease without esophagitis Category: Medical Qualifiers: Esophagitis presence: without esophagitis Qualified Code(s): K21.9 - Gastro-esophageal reflux disease without esophagitis (3) Encounter for colorectal cancer screening using Cologuard test: Comment: We have sent it out twice a day she says someone stealing it from her porch/male area will try again Code(s): Z12.11 - Encounter for screening for malignant neoplasm of colon; Z12.12 - Encounter for screening for malignant neoplasm of rectum Category: Medical Plan [place]ian #[id number] Hayder. She usually wears oxygen continuously at home. She forget her oxygen in the car and she is at Sa02 of 87%. We bring her oxygen for her visit. SHe is having a lot of epigastric pain, and she is not well acquainted with her medications saying only they put them in boxes and I take all that they give me. Her Dexilant seems to have fallen off of her list, likely because she does not know the names of the medications, so it may not have been refilled. I will start her and refill all of the medications in her GI regimen and re evaluate. Her current regimen is supposed to consist of Dexilant, Creon, sucralfate, Colace, dicyclomine, bisacodyl, and Zofran. ROV 6 weeks. Medications: New dexlansoprazole (Dexilant) 60 mg PO DAILY 30 caps 12RF 30 days K21.9 - Gastro-esophageal reflux disease without esophagitis [id number] 25,000-79,000- 105,000 unit (Zenpep) 2 caps PO BID 120 caps 12RF dicyclomine 20 mg PO QID 120 tabs 12RF Refilled sucralfate 1 g PO DAILY 30 tabs 12RF bisacodyl 10 mg (2 x 5 mg) PO BEDTIME 180 tabs 1RF docusate sodium (Stool Softener) 100 mg PO DAILY 30 caps 12RF TODAYS VISIT [place]ian #Myra [facility] Medical History Low back pain Asthma exacerbation Hypoxemia Colon cancer screening Sinusitis COVID-19 COVID-19 Controlled substance agreement signed Medication monitoring encounter Velia albicans infection Abdominal pain Lab test positive for detection of COVID-19 virus COVID-19 Left elbow pain Nausea Abdominal bloating Obesity Bacterial pneumonia COPD (chronic obstructive pulmonary disease) Arthritis Multinodular thyroid Tubular adenoma of colon Chronic fatigue Asthma Bleeding hemorrhoid IBS (irritable bowel syndrome) Vitamin D deficiency Graves disease Hyperlipidemia HTN (hypertension) Diabetes Lumbar radiculopathy Anemia Osteoarthritis Morbid obesity GERD (gastroesophageal reflux disease) Hepatitis C Surgical History Hx of colonoscopy History of esophagogastroduodenoscopy (EGD) Hx of appendectomy Hx of cholecystectomy Family History Mother Diabetes HTN (hypertension) CVD (cardiovascular disease) Heart problem Father Diabetes Brother Autism History of open heart surgery CVD (cardiovascular disease) Diabetes Son Diabetes Maternal Grandmother Diabetes Maternal Grandfather Diabetes Social History Household Members: Spouse, Children and Other Housing: Apartment Are you a primary managed care provider to a significant other at home: No Do you presently have visiting nurse or other home services: No Alcohol intake: never Patient Tobacco Use Status: Never used Tobacco service: No Current occupational status: unemployed and disabled Current occupation: rt handed Review of Systems Const Denies fatigue, Denies fever(s), Reports malaise, Denies night sweats, Denies poor appetite, Reports weakness and Denies weight loss ENT Reports Normal hearing present, Denies dental pain, Denies dysphagia, Reports dizziness, Denies hearing loss, Denies mouth pain, Denies odynophagia, Denies throat swelling, Denies tongue swelling and Reports other (Dentition adequate) Card Reports lightheadedness and Reports dyspnea on exertion Resp Details: at baseline, oxygen dependant Reports dyspnea on exertion GI Details: Denies abdominal pain, Denies melena, Denies bloating, Denies hematochezia, Reports constipation, Denies GI cramping, Denies dysphagia, Denies excessive flatus, Denies early satiety, Reports heartburn, Denies diarrhea, Denies nausea, Denies odynophagia, Denies vomiting and Denies hematemesis Skin/Breast Denies pruritus, Denies lesions, Denies rash and Denies jaundice Neuro Reports Normal hearing present, Denies Abnormal speech present, Reports confusion, Reports dizziness and Reports weakness Psych Reports anxiety and Reports confusion Endo Denies fatigue Aller/Immun Denies throat swelling and Denies tongue swelling Physical Exam Vital Signs: Last Vital Signs Pulse 96 04/04/25 11:16 BP 130/66 04/04/25 11:16 Pulse Ox 95 04/04/25 11:16 BMI result Body Mass Index 47.6 Const General: cooperative, no acute distress, well developed, confusion and well groomed Nutritional Appearance: well nourished and obese Orientation/consciousness: oriented to person, oriented to place, oriented to time and confusion Limitations: language barrier and other limitations HEENT Head: Yes normocephalic and Yes atraumatic Eyes General: appearance normal, both eyes and all related structures Pupils: Equal, round and reactive pupils present Neck Neck: Yes normal visual inspection and Yes no lymphadenopathy Thyroid: Thyroid normal Resp Other: She is oxygen dependent and has this with her today Effort & Inspection: normal respiratory effort and able to speak in complete sentences Cardio Rate: regular rate Rhythm: regular rhythm Heart sounds: Normal, physiologic split S2 sound present Peripheral pulses: radial pulses present and posterior tibial pulses present GI Inspection: No distended, Yes Abdominal panniculus present and Yes obesity Palpation (GI): Soft to palpation, nontender, no guarding, not rigid and No hepatosplenomegaly present Percussion: Yes normal to percussion Auscultation: normal bowel sounds Rectal Exam - Female: deferred Skin General skin exam: no rashes or lesions noted, turgor normal, skin not dry, no jaundice, No spider nevi and no striae Rashes: no rashes Nails: normal Neuro General: oriented to person, oriented to place, oriented to time and confusion Cranial nerves: Yes Equal, round and reactive pupils present and Yes Normal hearing present Speech: No Abnormal speech present Extrem General: Yes normal to inspection, No clubbing, No cyanosis and No edema Psych Appearance: grossly normal and well kempt Mental Status: mental status grossly normal Speech and movement: Slowed speech present (Psych) Affect: Anxious affect present Attitude: cooperative Thought process: not confabulating and Impoverished thought process present Thought content: Normal thought content present Insight: Fair insight present (Psych) Judgement: Fair judgement present (Psych) Assessment & Plan Assessment & Plan (1) GERD (gastroesophageal reflux disease): Code(s): K21.9 - Gastro-esophageal reflux disease without esophagitis Category: Medical Qualifiers: Esophagitis presence: without esophagitis Qualified Code(s): K21.9 - Gastro-esophageal reflux disease without esophagitis (2) Delayed gastric emptying: Code(s): K30 - Functional dyspepsia Category: Medical (3) Irritable bowel syndrome with both constipation and diarrhea: Comment: More CIC Code(s): K58.2 - Mixed irritable bowel syndrome Category: Medical (4) Encounter for colorectal cancer screening using Cologuard test: Comment: We have sent it out twice a day she says someone stealing it from her porch/male area will try again Code(s): Z12.11 - Encounter for screening for malignant neoplasm of colon; Z12.12 - Encounter for screening for malignant neoplasm of rectum Category: Medical Plan [place] #Tachiana Her current regimen consists of Dexilant, Creon, sucralfate, Colace, dicyclomine, bisacodyl, and Zofran. - The patient is a 59-year-old female presenting with nausea and shakiness secondary to hypoglycemia. - Symptoms of nausea and shakiness presented today. - The patient has not checked her blood sugar levels today. - Experienced an episode without proper dietary intake or insulin usage earlier. - Consumption of sugary arti aracelis has been noted. - Reported feeling worse, with more nausea and potential for vomiting. Given her hyperglycemic crisis we will cut this interval short today and continue her on her usual regimen. I want her to go home and eat something and take care of herself. She has a bottle of regular, sugared, arti aracelis and I encouraged her to drink more sips of it before she leaves our office to make sure she is well enough to leave. She does have family waiting for her in the waiting. Return office visit in 6 weeks to re-evaluate. Medications: Refilled [id number]-[id number] 25,000-79,000- 105,000 unit (Zenpep) 2 caps PO BID 120 caps 12RF sucralfate 1 g PO DAILY 30 tabs 12RF bisacodyl 10 mg (2 x 5 mg) PO BEDTIME 180 tabs 1RF dexlansoprazole (Dexilant) 60 mg PO DAILY 30 caps 12RF 30 days K21.9 - Gastro-esophageal reflux disease without esophagitis dicyclomine 20 mg PO QID 120 tabs 12RF docusate sodium (Stool Softener) 100 mg PO DAILY 30 caps 12RF Coding Level of Care Code Est Pt Level 3 (27691) Diagnoses GERD (gastroesophageal reflux disease) K21.9 Esophagitis presence: without esophagitis Delayed gastric emptying K30 Irritable bowel syndrome with both constipation and diarrhea K58.2 Encounter for colorectal cancer screening using Cologuard test Z12.11; Z12.12
--- OUTSIDE RECORDS SUMMARY | 2025-04-04 11:50 | XMS_ITS | Encounter Summary ---
Author Organization [facility] Address [address] [place] [address] Phone Care Team Providers Care Waterproofing Supervisor Name Role Phone Unavailable Primary Care Provider Unavailabl e Encounter Details Date Type Department Care Team (Late st Contact Info) Description 04/26/2018 Ancillary Orders [facility] [address] [place] [address] 3rd Floor, [address] [place] [address] Saritha Dumont PA [address] [place] [address] [place] [address] Social History Tobacco Use Types Packs/Day Years Used Date Smoking Tobacco: Never Assessed Comments Unknown Sex and Gender Information Value Date Recorded Sex Assigned at Not on file Legal Sex Female 12:08 PM EDT Gender Identity Not on file Sexual Orientation Not on file documented as of this encounter Plan of Treatment Not on file documented as of this encounter Visit Diagnoses Not on filedocumented in this encounter Additional Source Comments The information contained in this document represents components of the legal health record. It is not the complete legal health record.[facility]
--- OUTSIDE RECORDS SUMMARY | 2025-04-04 11:50 | XMS_ITS | Encounter Summary ---
Author Organization [employer] Address [address] [facility] 7 [place] [address] Care Team Providers Care Child Life Specialist Name Role Phone Dee Valenzuela MD Primary Care Provider [phone] Aggie Campuzano PharmD Unavailable [phone] Reason for Visit * Reason Comments Med Refill Encounter Details Date Type Department Care Team (Late st Contact Info) Description 02/17/2025 Refill [facility] MEDICINE [address] [place] [address] Dee Valenzuela MD [address] [place] [address] Seborrheic dermatitis Social History Tobacco Use Types Packs/Day Years [...] before you got money to buy more: Sometimes True 2024 Within the past 12 months,th e food you bought just didn't last and you didn't have enough money to get more: Sometimes True 12/11/2024 Transportation Answer Date Recorded In the past [...] Recorded Patient Health Questionnaire-2 Score 4 07/20/2022 Internet Access Answer Date Recorded Internet Access Q1 Yes 04/08/2024 Internet Access Q2 Not on file 04/08/2024 Comments Unknown Sex and Gender Information Value Date Recorded Sex Assigned at Female 06/06/2022 10:19 AM EDT Legal Sex Female 10:19 AM EDT Gender Identity Female 06/06/2022 10:19 AM EDT Sexual Orientation Straight 06/06/2022 10 :19 AM EDT documented as of this encounter Plan of Treatment Upcoming Encounters Date Type Department Care Team (Late st Contact Info) Description 04/14/2025 11:15 AM EDT Office Visit [facility] MED & PEDS [address] [place] [address] Dee Valenzuela MD [address] [place] [address] 04/30/2025 10:30 AM EDT Medication Management [facility] & PEDS [address] [place] [address] Aggie Campuzano PharmD [address] [place] [address] documented as of this encounter Visit Diagnoses Diagnosis Seborrheic dermatitis Unspecified seborrheic dermatitis documented in this encounter Additional Health Concerns Assessment Noted Time PHQ-9 Depression Total Score: 17 022 12:14 PM EST documented as of this encounter Care Teams Child Life Specialist Relationship Specialty Start Date End Date Dee Valenzuela MD [address] [place] [address] PCP - General Internal Medicine 10/11/13 Aggie Campuzano, ClaraD [address] [place] [address] Pharmacist Pharmacy 02/12/25 documented as of this encounter
--- OUTSIDE RECORDS SUMMARY | 2025-04-04 11:50 | XMS_ITS | Encounter Summary ---
Author Organization [employer] Address [address] [facility] 7 [place] [address] Care Team Providers Care Cath Lab Name Role Phone Dee Valenzuela MD Primary Care Provider [phone]- [phone] Aggie Campuzano PharmD Unavailable [phone] Encounter Details Date Type Department Care Team ([facility] st Contact Info) Description 01/12/2024 Orders Only [facility] MED [facility] PEDS [address] [place], [place] [phone] Dee Valenzuela MD [address] [place] [address] Iron deficiency (Primary Dx) Social History Tobacco Use Types Packs/Day Years Used Date Smoking Tobacco: Former Cigarettes Smokeless Tobacco: Never Alcohol Use Standard Drinks/Week Comments Never 0 (1 standard drink = 0.6 oz pur e alcohol) Depression Answer Date Recorded Patient Health Questionnaire-9 Score 17 07/20/2022 Housing Stability Answer Date Recorded What is your housing situation today? I have darrick ahuja 06/12/[address] you li ve. Do you have problems with any of the following? None of the above 06/12/2023 Food Insecurity Answer Date Recorded Within the past 12 months, y ou worried that your food would run out before you got money to buy more: Never True 06/12/2023 Within the past 12 months,th e food you bought just didn't last and you didn't have enough money to get more: Never True 01/2023 Transportation Answer Date Recorded In the past 12 months, has l ack of transportation kept you from medical appts, meetings, work or from getting things needed for daily living? No 06/12/2023 Utilities Answer Date Recorded In the past 12 months, has t he electric, gas, oil or water company threatened to shut off services in your home? No 06/12/2023 Depression Answer Date Recorded Patient Health Questionnaire-2 [...] Description 04/14/2025 11:15 AM EDT Office Visit [facility] MED & PEDS [address] [place] [address] Dee Valenzuela MD [address] [place] [address] 04/30/2025 10:30 AM EDT Medication Management [facility] MED & PEDS [address] [place] [address] Aggie Campuzano, PharmD [address] [place] [address] Scheduled Orders Name Type Priority Associated Diagnoses Orde r Schedule Ferritin Lab Routine Iron deficiency Expected: 01/12/2024, Expires: 01/11/2025 Iron And Total Iron Binding Capacity Lab Routine Iron deficiency Expected: 01/12/2024, Expires: 01/11/2025 Reticulocyte Count Lab Routine Iron deficiency Expected: 01/12/2024, Expires: 01/11/2025 documented as of this encounter Visit Diagnoses Diagnosis Iron deficiency- Primary Disorders of iron metabolism documented in this encounter Additional Health Concerns Assessment Noted Time PHQ-9 Depression Total Score: 17 07/20/2 022 12:14 PM EST documented as of this encounter Care Teams Cath Lab Relationship Specialty Start Date End Date Dee Valenzuela MD [address] [place] [address] PCP - General Internal Medicine 10/11/13 Aggie Campuzano, ClaraD [address] [place] [address] [place] [address] Pharmacist Pharmacy 02/12/25 documented as of this encounter
--- OUTSIDE RECORDS SUMMARY | 2025-04-04 11:50 | XMS_ITS | Encounter Summary ---
Author Organization [employer] Address [address] [facility] 7t [place] [address] Care Team Providers Care Rug Cutter Name Role Phone Dee Valenzuela MD Primary Care Provider [phone] Aggie Campuzano PharmD Unavailable [phone] Reason for Visit * Reason Onset Date Comments Appointment Request 04/02/2024 Encounter Details Date Type Department Care Team ([facility] st Contact Info) Description 04/02/2024 Telephone [facility] MEDICINE [address] [place] [address] Dee Valenzuela MD [address] [place] [address] Appointment Request Social History Tobacco Use Types [...] Description 04/14/2025 11:15 AM EDT Office Visit [facility] MED & PEDS [address] [place] [address] Dee Valenzuela MD [address] [place] [address] 04/30/2025 10:30 AM EDT Medication Management [facility] MED [facility] PED[facility] [address] [place] [address] Aggie Campuzano, PharmD [address] [place] [address] documented as of this encounter Visit Diagnoses Not on filedocumented in this encounter Additional Health Concerns Assessment Noted Time PHQ-9 Depression Total Score: 17 022 12:14 PM EST documented as of this encounter Care Teams Rug Cutter Relationship Specialty Start Date End Date Dee Valenzuela MD [address] [place] [address] PCP - General Internal Medicine 10/11/13 Aggie Campuzano, ClaraD [address] [place] [address] Pharmacist Pharmacy 02/12/25 documented as of this encounter
--- OUTSIDE RECORDS SUMMARY | 2025-04-04 11:50 | XMS_ITS | Encounter Summary ---
Author Organization [employer] Address 75 [facility] 7 [place] [address] Care Team Providers Care Integration Developer Name Role Phone Dee Valenzuela MD Primary Care Provider [phone] Aggie Campuzano PharmD Unavailable [phone] Encounter Details Date Type Department Care Team ([facility] st Contact Info) Description 04/29/2024 Orders Only [facility] MED & PEDS [address] [place], [place] [phone] Dee Valenzuela MD [address] [place] [address] Type 2 diabetes mellitus without complication, without long-term current use of insulin (CMS/HCC) (Primary Dx) Social History Tobacco Use Types [...] Description 04/14/2025 11:15 AM EDT Office Visit [facility] MED & PEDS [address] [place] [address] Dee Valenzuela MD [address] [place] [address] 04/30/2025 10:30 AM EDT Medication Management [facility] MED & PEDS [address] [place] [address] Aggie Campuzano, PharmD [address] [place] [address] documented as of this encounter Visit Diagnoses Diagnosis Type 2 diabetes mellitus without complication, without long-term current use of insulin ([facility])- Primary documented in this encounter Additional Health Concerns Assessment Noted Time PHQ-9 Depression Total Score: 17 022 12:14 PM EST documented as of this encounter Care Teams Integration Developer Relationship Specialty Start Date End Date Dee Valenzuela MD [address] [place] [address] PCP - General Internal Medicine 10/11/13 Aggie Campuzano, PharmD [address] [place] [address] Pharmacist Pharmacy 02/12/25 documented as of this encounter
--- OUTSIDE RECORDS SUMMARY | 2025-04-04 11:50 | XMS_ITS | Encounter Summary ---
Author Organization [employer] Address [address] [facility] 7 [place] [address] Care Team Providers Care Paper Cup Machine Operator Name Role Phone Dee Valenzuela MD Primary Care Provider [phone] Aggie Campuzano PharmD Unavailable [phone] Encounter Details Date Type Department Care Team ([facility] st Contact Info) Description 11/29/2024 Orders Only [facility] MED & PEDS [address] [place], [place] [phone] Dee Valenzuela MD [address] [place] [address] Type 2 diabetes mellitus without complication, without long-term current use of insulin ([facility]) Social History Tobacco Use Types Packs/Day Years Used Date Smoking Tobacco: Former Cigarettes Smokeless Tobacco: Never Alcohol Use Standard Drinks/Week Comments Never 0 (1 standard drink = 0.6 oz pur e alcohol) Depression Answer Date Recorded Patient Health Questionnaire-9 Score 17 07/20/2022 Housing Stability Answer Date Recorded What is your housing situation today? I have darrickjem ahuja 02/28/[address] you [...] 11:15 AM EDT Office Visit [facility] MED & PEDS [address] [place] [address] Dee Valenzuela MD [address] [place] [address] 04/30/2025 10:30 AM EDT Medication Management [facility] MED & PEDS [address] [place] [address] Aggie Campuzano, PharmD [address] [place] [address] documented as of this encounter Visit Diagnoses Diagnosis Type 2 diabetes mellitus without complication, without long-term current use of insulin ([facility]) documented in this encounter Additional Health Concerns Assessment Noted Time PHQ-9 Depression Total Score: 17 07/20/ 022 12:14 PM EST documented as of this encounter Care Teams Paper Cup Machine Operator Relationship Specialty Start Date End Date Dee Valenzuela MD [address] [place] [address] PCP - General Internal Medicine 10/11/13 Aggie Campuzano, PharmD [address] [place] [address] Pharmacist Pharmacy 02/12/25 documented as of this encounter
--- OUTSIDE RECORDS SUMMARY | 2025-04-04 11:50 | XMS_ITS | Encounter Summary ---
Author Organization [employer] Address [address] [place] [address] Care Team Providers Care Fuse Maker Name Role Phone Dee Valenzuela MD Primary Care Provider [phone] Aggie Campuzano PharmD Unavailable [phone] Reason for Referral * Consultation (Routine) - Authorized Specialty Diagnoses / Procedures Referred By [place]le[place] t Referred To Contact Pharmacy Diagnoses Type 2 diabetes mellitus without complication, without long-term current use of insulin (CMS/HCC) Dee Valenzuela MD [address] [place] [address] Phone: tel: fax: Referral ID Status Reason Start Date Expiration Date Visits Requested Visits Authorized [id number] Authorized Consult and Treat 01/15/2025 01/15/2026 6 6 Encounter Details Date Type Department Care Team ([facility] st Contact Info) Description 01/15/2025 Orders Only [facility] CH[facility] MED & PEDS [address] [place] [address] Dee Valenzuela MD [address] [place] [address] Type 2 diabetes mellitus without complication, without [...] 11:15 AM EDT Office Visit [facility] MED & PEDS [address] [place] [address] Dee Valenzuela MD [address] [place] [address] 04/30/2025 10:30 AM EDT Medication Management [facility] MED & PEDS [address] [place] [address] Aggie Campuzano, PharmD [address] [place] [address] Scheduled Referrals Name Type Priority Associated Diagnoses Orde r Schedule Referral to Pharmacy CDTM Outpatient Referral Routine Type 2 diabetes mellitus without complication, without long-term current use of insulin ([facility]) Ordered: 01/15/2025 documented as of this encounter Procedures Procedure Name Priority Date/Time Associated Diagnosis Comments T-SPOT(R).TB Routine 01/15/2025 9:56 AM EDT Type 2 diabetes mellitus without complication, without long-term current use of insulin ([facility]) documented in this encounter Results * T-SPOT??.TB (01/15/2025 9:56 AM EDT) Pathologist [facility] T Spot TB Negative Negative [facility] Comment:A negative test resu lt does not exclude the possibilityof exposure to or infection with Mycobacteriumtuberculosis (M. tuberculosis). Patients with recentexposure to TB infected individuals exhibiting anegative T-SPOT.TB result should be considered forretesting within 6 weeks or if other relevant clinicalsymptoms indicate. Results from T-SPOT.TB testing mustbe used in conjunction with each individual'sepidemiological history, current medical status,and results of other diagnostic evaluations.The T-SPOT.TB test is qualitative and results arereported as positive, borderline, or negative, giventhat the test controls perform as expected. In linewith the Centers for Disease Control and Prevention's2010 recommendation to report quantitative measurementsalongside the qualitative result, the laboratoryprovides spot counts for informational purposes only.The T-SPOT.TB test should not be interpreted as aquantitative test. TS PANEL A 0 [facility] TS PANEL B 0 [facility] Negative Control Passed [facility] Positive Control Passed [facility] Comment:For additional infor matketurah, please refer tohttp://education.AppointmentCity/faq/[email or web address](This link is being provided for informational/educational purposes only.)THIS TEST WAS PERFORMED AT:[employer] [id number] [place] [address]PAXIEUALADAN BARTLETT MD,PHD 01/15/2025 9:56 AM EDT 01/15/2025 9:56 AM EDT us Generic External Data Provider LAB BLOOD ORDERAB LES Final Result [facility] [address] [place] [address] [phone] documented in this encounter Visit Diagnoses Diagnosis Type 2 diabetes mellitus without complication, without long-term current use of insulin ([facility])- Primary documented in this encounter Additional Health Concerns Assessment Noted Time PHQ-9 Depression Total Score: 17 07/20/ 022 12:14 PM EST documented as of this encounter Care Teams Fuse Maker Relationship Specialty Start Date End Date Dee Valenzuela MD [address] [place] [address] PCP - General Internal Medicine 10/11/13 Aggie Campuzano PharmD [address] [place] [address] Pharmacist Pharmacy 02/12/25 documented as of this encounter
--- OUTSIDE RECORDS SUMMARY | 2025-04-04 11:50 | XMS_ITS | Encounter Summary ---
Author Organization [facility] Address [address] [place] [address] Phone Care Team Providers Care Roll Line Operator Name Role Phone Unavailable Primary Care Provider Unavailabl e Encounter Details Date Type Department Care Team (Latest Contact Info) Description 04/26/2018 Ancillary Orders [facility] [address] [place] [address] [place] [address] Saritha Dumont PA [address] [place] [address] Syncope and collapse Social History Tobacco Use Types Packs/Day Years Used Date Smoking Tobacco: Never Assessed Comments Unknown Sex and Gender Information Value Date Recorded Sex Assigned at Not on file Legal Sex Female 12:08 PM EDT Gender Identity Not on file Sexual Orientation Not on file documented as of this encounter Plan of Treatment Not on file documented as of this encounter Results * Holter Monitor 48 Hours (04/26/2018 12:48 PM EDT) Anatomical Region Laterality Modality Heart Other Narrative 04/26/2018 4:52 PM EDT 48 hour monitor: Patient reported symptoms of numbness in the hands and feet, both arms, and shortness of breath. Baseline rhythm is sinus with a minimum heart rate of 62 maximum 131 average 87 bpm. There were 2 PACs present. Patient's symptoms occurred during sinus rhythm. Impression normal 48 hour monitor. Symptoms during sinus rhythm. Saritha [facility] ORDERA BLES Final Result documented in this encounter Visit Diagnoses Diagnosis Syncope and collapse Syncope and collapse documented in this encounter Additional Source Comments The information contained in this document represents components of the legal health record. It is not the complete legal health record.[facility]
--- OUTSIDE RECORDS SUMMARY | 2025-04-04 11:50 | XMS_ITS | Encounter Summary ---
Author Organization [employer] Address [address] [facility] 7 [place] [address] Care Team Providers Care Information Technology Technician Name Role Phone Dee Valenzuela MD Primary Care Provider [phone] Aggie Campuzano PharmD Unavailable [phone] Encounter Details Date Type Department Care Team ([facility] st Contact Info) Description 07/22/2024 Orders Only [facility] CHC MED & PEDS [address] [place], [place] [phone] Dee Valenzuela MD [address] [place] [address] Social History Tobacco Use Types Packs/Day Years [...] Description 04/14/2025 11:15 AM EDT Office Visit [facility] MED & PEDS [address] [place] [address] Dee Valenzuela MD [address] [place] [address] 04/30/2025 10:30 AM EDT Medication Management [facility] MED & PEDS [address] [place] [address] Aggie Campuzano PharmD [address] [place] [address] documented as of this encounter Visit Diagnoses Not on filedocumented in this encounter Additional Health Concerns Assessment Noted Time PHQ-9 Depression Total Score: 17 022 12:14 PM EST documented as of this encounter Care Teams Information Technology Technician Relationship Specialty Start Date End Date Dee Valenzuela MD [address] [place] [address] PCP - General Internal Medicine 10/11/13 Aggie Campuzano PharmD [address] [place] [address] Pharmacist Pharmacy 02/12/25 documented as of this encounter
--- OUTSIDE RECORDS SUMMARY | 2025-04-04 11:50 | XMS_ITS | Encounter Summary ---
Author Organization [employer] Address [address] [facility] [address] 7[address] [place] [address] Care Team Providers Care Truck And Transport Mechanic Name Role Phone Dee Valenzuela MD Primary Care Provider [phone] Aggie Campuzano PharmD Unavailable [phone] Reason for Visit * Reason Comments Med Refill Encounter Details Date Type Department Care Team (Late st Contact Info) Description 02/17/2025 Refill [facility] [address] [place] [address] Terese Izaguirre MD [address] [place] [address] Acute paronychia of finger of left hand; Cellulitis of left finger Social History Tobacco Use Types Packs/Day Years [...] Description 04/14/2025 11:15 AM EDT Office Visit [facility] MED & PEDS [address] [place] [address] Dee Valenzuela MD [address] [place] [address] 04/30/2025 10:30 AM EDT Medication Management [facility] MED & PEDS [address] [place] [address] Aggie Campuzano, PharmD [address] [place] [address] documented as of this encounter Visit Diagnoses Diagnosis Acute paronychia of finger of left hand Cellulitis of left finger documented in this encounter Additional Health Concerns Assessment Noted Time PHQ-9 Depression Total Score: 17 07/20/ 022 12:14 PM EST documented as of this encounter Care Teams Truck And Transport Mechanic Relationship Specialty Start Date End Date Dee Valenzuela MD [address] [place] [address] PCP - General Internal Medicine 10/11/13 Aggie Campuzano PharmD [address] [place] [address] Pharmacist Pharmacy 02/12/25 documented as of this encounter
--- OUTSIDE RECORDS SUMMARY | 2025-04-04 11:50 | XMS_ITS | Clinical Summary ---
Author Organization [facility] Address [address] [place] [address] Care Team Providers Care Roof Slater Name Role Phone Unavailable Primary Care Provider [...]
--- OUTSIDE RECORDS SUMMARY | 2025-04-04 11:50 | XMS_ITS | Encounter Summary ---
Author Organization [employer] Address [address] [place] [address] Care Team Providers Care Instrument Repair Supervisor Name Role Phone Dee Valenzuela MD Primary Care Provider [phone] Aggie Campuzano PharmD Unavailable [phone] Reason for Referral * Consultation (Routine) - Authorized Specialty Diagnoses / Procedures Referred By Lurdes freeman Referred To Contact Orthopaedic Surgery Diagnoses Closed nondisplaced fracture of phalanx of left great toe, unspecified phalanx, initial encounter Dee Valenzuela MD [address] [place] [address] Phone: tel: fax: [facility] [address] [place] [address] Phone: tel: fax: Referral ID Status Reason Start Date Expiration Date Visits Requested Visits Authorized [id number] Authorized Specialty Services Required 03/24/2025 03/24/2026 1 1 Encounter Details Date Type Department Care Team (Late st Contact Info) Description 03/24/2025 Orders Only [facility] MED [facility]EDS [address] [place] [address] Dee Valenzuela MD [address] [place] [address] Closed nondisplaced fracture of phalanx of left great toe, unspecified phalanx, initial encounter (Primary Dx) Social History Tobacco Use Types [...] Upcoming Encounters Date Type Department Care Team ([facility] st Contact Info) Description 04/14/2025 11:15 AM EDT Office Visit [facility] CHC MED & PEDS [address] [place] [address] Dee Valenzuela MD [address] [place] [address] 04/30/2025 10:30 AM EDT Medication Management [facility] CHC MED & PEDS [address] [place] [address] Aggie Campuzano PharmD [address] [place] [address] documented as of this encounter Procedures Procedure Name Priority Date/Time Associated Diagnosis Comments AMB REFERRAL TO ORTHOPAEDIC SURGERY Routine 03/31/2025 Closed nondisplaced fracture of phalanx of left great toe, unspecified phalanx, initial encounter documented in this encounter Results * Referral to Orthopaedic Surgery (03/31/2025) us Dee Valenzuela MD OUTPATIENT REFERRAL ORDERAB LES Final Result documented in this encounter Visit Diagnoses Diagnosis Closed nondisplaced fracture of phalanx of left great toe, unspecified phalanx, initial encounter- Primary documented in this encounter Additional Health Concerns Assessment Noted Time PHQ-9 Depression Total Score: 17 07/20/ 022 12:14 PM EST documented as of this encounter Care Teams Instrument Repair Supervisor Relationship Specialty Start Date End Date Dee Valenzuela MD [address] [place] [address] PCP - General Internal Medicine 10/11/13 Aggie Campuzano, ClaraD [address] [place] [address] Pharmacist Pharmacy 02/12/25 documented as of this encounter
--- OUTSIDE RECORDS SUMMARY | 2025-04-04 11:50 | XMS_ITS | Encounter Summary ---
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 Name Role Phone Dee Valenzuela MD Primary Care Provider [phone] Aggie Campuzano PharmD Unavailable [phone] Reason for Visit * Reason Onset Date Comments returning call 07/20/2022 Encounter Details Date Type Department Care Team ([facility] Contact Info) Description 07/20/2022 Telephone [facility] CHC MED & PEDS [address] [place], [place] [phone] Dee Valenzuela MD [address] [place], [place] [phone] returning call Social History Tobacco Use Types Packs/Day Years Used Date Smoking Tobacco: Never Smokeless Tobacco: Never Depression Answer Date Recorded Patient Health Questionnaire-9 Score 17 07/20/2022 Depression Answer Date Recorded Patient Health Questionnaire-2 Score 4 07/20/2022 Comments Unknown Sex and Gender Information Value Date Recorded Sex Assigned at Female 06/06/2022 10:19 AM EDT Legal Sex Female 10:19 AM EDT Gender Identity Female 06/06/2022 10:19 AM EDT Sexual Orientation Straight 06/06/2022 10 :19 AM EDT COVID-19 Exposure Response Date Recorded In the last 10 days, have yo u been in contact with someone who was confirmed or suspected to have Coronavirus/COVID-19? No / Unsure 07/20/2022 11:06 AM EST documented as of this encounter Functional Status * Over the past 2 weeks, how often have you been bothered by any of the following problems? Question Answer Date of Assessment Author Patient Health Questionnaire -2 Score 4 07/20/2022 12:14 PM Maria A Kamara MA * If you checked off any problems on this questionnaire so far, Question Answer Date of Assessment Author How difficult have these problems made it for you to do your work, take care of things at home, or get along with other people? Very difficult 07/20/2022 12:14 PM Maria A Kamara MA * Over the past 2 weeks, how often have you been bothered by any of the following problems? Question Answer Date of Assessment Author Little interest or pleasure in doing things More than half the days 07/20/2022 12:14 PM Kortney Kamara MA Feeling down, depressed, or hopeless More than half the days 07/20/2022 12:14 PM Kortney Kamara MA Trouble falling or staying asleep, or sleeping too much Nearly every day 07/20/2022 12:14 PM Kortney Kamara MA Feeling tired or having little energy Nearly every day 07/20/2022 12:14 PM Kortney Kamara MA Poor appetite or overeating More than half the days 07/20/2022 12:14 PM Kortney Kamara MA Feeling bad about yourself - or that you are a failure or have let yourself or your family down More than half the days 07/20/2022 12:14 PM Kortney Kamara MA Trouble concentrating on things, such as reading the newspaper or watching television Several days 07/20/2022 12:14 PM Kortney Kamara MA Moving or speaking so slowly that other people could have noticed? Or the opposite - being so fidgety or restless that you have been moving around a lot more than usual. Several days 07/20/2022 12:14 PM Kortney Kamara MA Thoughts that you would be better off or hurting yourself in some way Several days 07/20/2022 12:14 PM Kortney Kamara MA Patient Health Questionnaire-9 Score 17 07/20/2022 12:14 PM Kortney Kamara MA documented as of this encounter Miscellaneous Notes * Telephone Encounter - Kamila Susy - 07/20/2022 10:52 AM EST Tc from pt returning call . documented in this encounter Plan of Treatment Upcoming Encounters Date Type Department Care Team (Late st Contact Info) Description 04/14/2025 11:15 AM EDT Office Visit [facility] MED & PEDS [address] [place] [address] Dee Valenzuela MD [address] [place] [address] 04/30/2025 10:30 AM EDT Medication Management [facility] MED & PEDS [address] [place] [address] Aggie Campuzano PharmD [address] [place] [address] documented as of this encounter Visit Diagnoses Not on filedocumented in this encounter Additional Health Concerns Assessment Noted Time PHQ-9 Depression Total Score: 17 022 12:14 PM EST documented as of this encounter Care Teams Bicycle Repair Technician Relationship Specialty Start Date End Date Dee Valenzuela MD [address] [place] [address] PCP - General Internal Medicine 10/11/13 Aggie Campuzano PharmD [address] [place] [address] Pharmacist Pharmacy 02/12/25 documented as of this encounter
--- OUTSIDE RECORDS SUMMARY | 2025-04-04 11:50 | XMS_ITS | Clinical Summary ---
Author Organization [facility] Address [address] [facility] [address] [place] [address] Phone Care Team Providers Care Soa Engineer Name Role Phone Unavailable Primary Care Provider [...] file Medical Devices Not on file Insurance [facility] [address] [place] [address] [place] [address] C[employer] A[employer] Additional Source Comments The information contained in this document represents components of the legal health record. It is not the complete legal health record.[facility]
--- OUTSIDE RECORDS SUMMARY | 2025-04-04 11:50 | XMS_ITS | Clinical Summary ---
Author Organization [employer] Address [address] [place] [address] [address] [place] [address] Care Team Providers Care Binding Bench Worker Name Role Phone Dee Valenzuela MD Primary Care Provider [phone] Aggie Campuzano PharmD Unavailable [phone] Allergies Active Allergy Reactions Criticality Noted Date Comments Sulfamethoxazole-Trimethoprim 2021 Medications albuterol 108 (90 Base) MCG/ACT inhaler inhale 2 puff by inhalation route every 6 hours as needed for Respiratory Distress/Wheeze 015 Active albuterol (2.5 MG/3ML) 0.083% nebulizer solution Inhale 3 mL. Inhale 3ml every 6 hours as needed Active gabapentin (Neurontin) 800 MG tablet Take 1 tablet by mouth in the morning, at noon, and at bedtime. Take 1 tablet by oral route 3 times a day as directed Active glucose-vitamin C 4-6 GM-MG oral gel 1 tablet to take in case of hypoglycemia ( FS < 70 mg/dl) 021 Active LORazepam (Ativan) 0.5 MG tablet take 1 tablet by oral route twice daily as needed Active ondansetron ODT (Zofran-ODT) [address] 1 tablet by translingual route 2 to 3 times daily as needed for nausea or vomiting Active sertraline (Zoloft) 100 MG tablet Take 2 tablets by mouth 1 (one) time each day. Take 2 tablets by mouth 1 (one) time each day. Active montelukast (Singulair) 10 MG tablet Take 10 mg by mouth 1 (one) time each day. Active traMADol (Ultram) 50 MG tablet Take 50 mg by mouth every 6 (six) hours if needed for severe pain. Active hydrocortisone (Anusol-HC) 2.5 % rectal creamIndications :Seborrheic dermatitis Apply rectally twice a daily in the morning and at bedtime as directed 30 g 023 Active sucralfate (Carafate) 1 g tabletIndication s:Epigastric pain TAKE 1 TABLET BY MOUTH THREE TIMES DAILY 1 HOUR BEFORE MEALS AND AT BEDTIME DIRECTED 90 tablet 1 023 Active Blood Glucose Monitoring Suppl (Smart Holograms Verio Flex System) device Inject 1 Units under the skin 3 times daily. Test blood sugar as directed 1 each 023 Active Lancets (Clonect Solutionsuch Delica Plus [id number]) miscIndications: Type 2 diabetes mellitus with hyperglycemia ([facility]) To check the blood sugar once a day 90 each 3 024 Active buPROPion XL (Wellbutrin XL) 300 MG 24 hr tablet Take 1 tablet by mouth in the morning. Active lamoTRIgine (LaMICtal) 200 MG tablet Take 1 tablet by mouth at bedtime. Active mirtazapine (Remeron) 30 MG tablet Take 1 tablet by mouth at bedtime. Active Zenpep 90355-01724 units capsule delayed-release particles capsule Take 2 capsules by mouth 2 times daily. WITH MEALS OR SNACK Active glucose 4 g chewable tabletIndication s:Type 2 diabetes mellitus with hyperglycemia, without long-term current use of insulin ([facility]) Chew 4 tablets (16 g) if needed for low blood sugar. 50 tablet 12 025 2025 Active losartan (Cozaar) 100 MG tabletIndication s:Primary hypertension Take 1 tablet (100 mg) by mouth Once per day. 30 tablet 11 025 2025 Active dicyclomine (Bentyl) 20 MG tablet TAKE 1 TABLET BY MOUTH BEFORE MEALS AND AT BEDTIME 120 tablet 2 Active Fasenra Pen 30 MG/ML injection 025 Active budesonide-formo terol (Symbicort) 160-4.5 MCG/ACT inhaler 025 Active Incruse Ellipta 62.5 MCG/ACT aerosol powder 025 Active ketoconazole (NIZOral) 2 % shampooIndicatio ns:Seborrheic dermatitis APPLY TO SCALP AND LEAVE ON FOR 5 MINUTES THEN RINSE OFF TWICE A WEEK 120 mL 3 025 Active Alcohol Swabs (Alcohol Prep) 70 % pads USE DIRECTED FOUR TIMES DAILY 200 each 025 Active Ferrous Sulfate (iron) 325 (65 Fe) MG tabletIndication s:Iron deficiency TAKE 1 TABLET BY MOUTH TWICE DAILY IN THE MORNING AND IN THE EVENING 180 tablet 1 025 Active folic acid (Folvite) 1 MG tabletIndication s:Iron deficiency TAKE 1 TABLET BY MOUTH EVERY MORNING 90 tablet 1 025 Active Continuous Glucose Bandoleer Packer (FreeStyle Juan Ramon 3 [place]) deviceIndication s:Type 2 diabetes mellitus without complication, without long-term current use of insulin ([facility]) 1 each Once per day. Use as directed for CGM 1 each 025 Active Continuous Glucose Sensor (FreeStyle Juan Ramon 3 Plus Sensor) miscIndications: Type 2 diabetes mellitus without complication, without long-term current use of insulin (CMS/HCC) 1 each every 15 days. Apply 1 every 15 days as directed for CGM 2 each Active dilTIAZem CD (Cardizem CD) 180 MG 24 hr capsuleIndicatio ns:Primary hypertension TAKE 1 CAPSULE BY MOUTH EVERY MORNING 90 capsule 1 025 Active simvastatin (Zocor) 40 MG tabletIndication s:Hypercholester olemia TAKE 1 TABLET BY MOUTH AT BEDTIME 90 tablet 1 025 Active diclofenac (Voltaren) 50 MG EC tabletIndication s:Acute paronychia of finger of left hand,Cellulitis of left finger Take 1 tablet (50 mg) by mouth 3 times daily. Do not crush, chew, or split. 12 tablet 025 2025 Active Aspirin Low Dose 81 MG EC tablet TAKE 1 TABLET BY MOUTH AT BEDTIME 90 tablet 1 025 Active Bisacodyl EC 5 MG EC tablet take 2 tablets by mouth every day at bedtime 025 Active lidocaine (Xylocaine) 5 % ointmentIndicati ons:Left elbow pain APPLY TOPICALLY TO THE AFFECTED AREA(S) NEEDED FOR MILD PAIN 60 g 3 025 Active hydrocortisone 1 % ointmentIndicati ons:Seborrheic dermatitis APPLY TOPICALLY TO THE AFFECTED AREA(S) TWICE DAILY 56 g 2 025 Active Multiple Vitamin (Multivitamin) tabletIndication s:Vitamin deficiency Take 1 tablet by mouth at bedtime. 90 tablet 1 025 Active metFORMIN XR (Glucophage-XR) 500 MG 24 hr tabletIndication s:Type 2 diabetes mellitus with hyperglycemia, without long-term current use of insulin ([facility]) Take ONE tablet in the morning and TWO tablets in the evening 90 tablet 1 025 Active glucose blood (OneTouch Verio) test stripIndications :Type 2 diabetes mellitus without complication, without long-term current use of insulin ([facility]) To test the blood sugar 3 times a day 100 each 3 025 Active Trulicity 3 MG/0.5ML solution auto-injectorInd ications:Type 2 diabetes mellitus with hyperglycemia, without long-term current use of insulin ([facility]) INJECT ONE PEN (= 3MG) SUBCUTANEOUSLY ONCE A WEEK DIRECTED 2 mL 1 025 Active hydroCHLOROthiaz lisa 12.5 MG tabletIndication s:Primary hypertension TAKE 1 TABLET BY MOUTH EVERY OTHER DAY IN THE MORNING 15 tablet 1 025 Active Multiple Vitamin (Multivitamin) tabletIndication s:Vitamin deficiency TAKE 1 TABLET BY MOUTH EVERY EVENING 90 tablet 1 025 2024 Discontinued(R eorder (will not trigger notification to Pharmacy)) glucose blood (OneTouch Verio) test stripIndications :Type 2 diabetes mellitus without complication, without long-term current use of insulin ([facility]) To test the blood sugar 3 times a day 100 each 3 025 2024 Discontinued(R eorder (will not trigger notification to Pharmacy)) metFORMIN XR (Glucophage-XR) 500 MG 24 hr tabletIndication s:Type 2 diabetes mellitus with hyperglycemia, without long-term current use of insulin ([facility]) TAKE 2 TABLETS BY MOUTH TWICE DAILY IN THE MORNING AND EVENING 120 tablet 1 025 2024 Discontinued Trulicity 3 MG/0.5ML solution auto-injectorInd ications:Type 2 diabetes mellitus with hyperglycemia, without long-term current use of insulin ([facility]) INJECT ONE PEN (= 3MG) SUBCUTANEOUSLY ONCE A WEEK DIRECTED 2 mL 1 025 2024 Discontinued hydroCHLOROthiaz lisa 12.5 MG tabletIndication s:Primary hypertension TAKE 1 TABLET BY MOUTH EVERY OTHER DAY IN THE MORNING 15 tablet 1 025 2024 Discontinued metFORMIN XR (Glucophage-XR) 500 MG 24 hr tabletIndication s:Type 2 diabetes mellitus with hyperglycemia, without long-term current use of insulin ([facility]) TAKE 2 TABLETS BY MOUTH TWICE DAILY IN THE MORNING AND EVENING 120 tablet 1 025 2024 Discontinued(R eorder (will not trigger notification to Pharmacy)) colchicine 0.6 MG tabletIndication s:Great toe pain, left 1.2 mg MONA, 0.6 mg one hour after than 0.6 mg 2 times a day x 2 days. 30 tablet 11 025 2024 Discontinued(I neffective) traMADol (Ultram) 50 MG tabletIndication s:Closed nondisplaced fracture of phalanx of left great toe, unspecified phalanx, initial encounter Take 1 tablet (50 mg) by mouth every 6 (six) hours if needed for severe pain for up to 5 days. 15 tablet 025 2024 Active Problems Problem Noted Date Diagnosed Date Acute paronychia of finger of left hand 01/29/20 25 Cellulitis of left finger 01/28/2025 Assessment & Plan (01/28/2025 3:33 PM EDT): Maintain area dry and clean I will prescribe doxycycline 100mg BID for 10 days and diclofenac PRN for pain I advise to monitor area, if swelling and erythema gets worse or if she feels unwell dizzy, weak, nausea, sweating or fever, she would have to go to the emergency room Dizziness 01/28/2025 Assessment & Plan (01/28/2025 3:29 PM EDT): Resolved after use of oxygen and juice box I advise to use her oxygen at all times F/u with PCP and specialists Pulmonary eosinophilia 10/17/2024 Irritable bowel syndrome wit h both constipation and diarrhea 10/17/2024 Overview (10/17/2024): More [facility] Gastroparesis 09/11/2024 COPD exacerbation 09/03/2024 Assessment & Plan (09/03/2024 6:59 PM EST): SOB likely due to not having her oxygen with her when she was doing errands. She does not feel she needs to go to the ER. Continue prednisone and Rx azithromycin for cough > 2 weeks. Pts came with her oxygen and she went home with him in the car. She reported feeling back to baseline when she left. ER precautions discussed. Severe persistent asthma 07/19/2022 Iron deficiency 07/19/2022 Hypertensive disorder 07/19/2022 Rheumatoid arthritis 11/01/2019 Hemorrhoids 07/05/2016 Type 2 diabetes mellitus, wi th long-term current use of insulin 10/08/2014 Assessment & Plan (01/28/2025 3:31 PM EDT): Patient is now outpatient Diabetes supplies will be prescribe for her C/w same medication regimen F/u with PCP Uterine leiomyoma 07/25/2013 Obesity 05/16/2013 Congenital hiatus hernia 02/06/2012 Resolved Problems Problem Noted Date Diagnosed Date Resolved Date Obstructive sleep apnea syndrome 10/17/2024 11/21/2024 Severe chronic obstructive pulmonary disease 3 11/21/2024 Encounters Date Type Department Care Team Description 04/03/2025 Refill [facility] [address] [place] [address] Dee Valenzuela MD Primary hypertension 03/28/2025 Refill [facility] [address] [place] [address] Dee Valenzuela MD Type 2 diabetes mellitus with hyperglycemia, without long-term current use of insulin ([facility]) 03/27/2025 Results Follow-Up [facility] [address] [place] [address] Elisha Villeda RN XR Toes 2+ Left, POCT Glucose, POCT HGB A1C, Additional followed-up results: 3 03/26/2025 Telephone [facility] [address] [place] [address] Dee Valenzuela MD Medication Question 03/26/2025 Travel 03/25/2025 Telephone [facility] [address] [place] [id number] Dee Valenzuela MD Durable Medical Equipment 03/24/2025 10:45 AM EDT Office Visit [facility] [address] [place] [address] Dee Valenzuela MD Primary hypertension (Primary Dx); Type 2 diabetes mellitus with other specified complication, with long-term current use of insulin ([facility]); Great toe pain, left; Closed nondisplaced fracture of phalanx of left great toe, unspecified phalanx, initial encounter 03/24/2025 Orders Only [facility] [address] [place] [address] Dee Valenzuela MD Closed nondisplaced fracture of phalanx of left great toe, unspecified phalanx, initial encounter (Primary Dx) 03/24/2025 Orders Only [facility] [address] [place] [address] Dee Valenzuela MD 03/24/2025 Travel 03/21/2025 Telephone [facility] [address] [place] [address] Dee Valenzuela MD chart prep 03/09/2025 Refill [facility] [address] [place] [address] Dee Valenzuela MD Vitamin deficiency 03/08/2025 Refill [facility] [address] [place] [address] Dee Valenzuela MD Type 2 diabetes mellitus with hyperglycemia, without long-term current use of insulin ([facility]); Vitamin deficiency 02/27/2025 Refill [facility] [address] [place] [address] Dee Valenzuela MD Seborrheic dermatitis 02/17/2025 Refill [facility] [address] [place] [address] Dee Valenzuela MD Seborrheic dermatitis 02/17/2025 Refill [facility] [address] [place] [address] Terese Izaguirre MD Acute paronychia of finger of left hand; Cellulitis of left finger 02/13/2025 Refill [facility] [address] [place] [address] Laya Hernández MD Left elbow pain 02/12/2025 Travel 02/11/2025 Refill [facility] [address] [place] [address] Dee Valenzuela MD 02/05/2025 Refill [facility] [address] [place] [address] Dee Valenzuela MD Primary hypertension 01/30/2025 Refill [facility] [address] [place] [address] Dee Valenzuela MD Type 2 diabetes mellitus with hyperglycemia, without long-term current use of insulin ([facility]) 01/28/2025 3:00 PM EDT Office Visit [facility] [address] [place] [phone] Terese Izaguirre MD Acute paronychia of finger of left hand (Primary Dx); Cellulitis of left finger; Dizziness; Type 2 diabetes mellitus with other specified complication, with long-term current use of insulin ([facility]) 01/28/2025 Telephone [facility] [address] [place] [address] Dee Valenzuela MD 01/24/2025 Telephone [facility] [address] [place] [address] Dee Valenzuela MD Prior Authorization 01/21/2025 Telephone [facility] [address] [facility] [place] [address] Dee Valenzuela MD PA 01/20/2025 Results Follow-Up [facility] [address] [facility] [place] [address] Dee Valenzuela MD T-SPOT .TB 01/15/2025 Orders Only [facility] [address] [facility] [place] [address] Dee Valenzuela MD Type 2 diabetes mellitus without complication, without long-term current use of insulin ([facility]) (Primary Dx) 01/15/2025 Telephone [facility] [address] [place] [address] Dee Valenzuela MD 01/15/2025 Orders Only GENERIC EXTERNAL DATA DEPARTMENT Provider, Generic External Data 01/08/2025 Refill [facility] [address] [place] [address] Dee Valenzuela MD Type 2 diabetes mellitus with hyperglycemia, without long-term current use of insulin ([facility]) 01/06/2025 Refill [facility] [address] [place] [address] Dee Valenzuela MD Primary hypertension; Hypercholesterolemia from Last 3 Months Immunizations Immunization Administration Dates Next Due Hep A, Adult 01/11/2011,05/18/2010 Hep B, adult 05/07/2019,01/11/2011,05/18/2010 Influenza injectable quadriv alent IIV4 with preservative 08/30/2022,04/20/2018,04/28/2017,05/18 Influenza injectable quadriv alent preservative free 06/10/2021,05/25/2020,05/07/2019,05/23 Influenza, IIV3, injectable 07/05/2023 Influenza, Split (incl. simone fied surface antigen) 05/16/2013,10/08/2012 Influenza, seasonal, injecta ble, preservative free 07/16/2024,05/17/2016,05/23/2014,05/09 Moderna Covid-19 Vaccine 12+ 11/11/2020,10/15/19 21 Pneumococcal Conjugate PCV 20 10/10/2023 Pneumococcal Polysaccharide PPSV23 06/01/2015, TD (adult), 2 Lf tetanus tox oid, preservative free, adsorbed 01/10/2008 Tdap 05/07/2019 Zoster, Recombinant 04/09/2020,09/19/2019 Social History Tobacco Use Types Packs/Day Years Used Date Smoking Tobacco: Former Cigarettes Smokeless Tobacco: Never Tobacco Cessation:Counseling Given: Not Answered Alcohol Use Standard Drinks/Week Comments Never 0 [...] Orientation Straight 06/06/2022 10 :19 AM EDT Last Filed Vital Signs Vital Sign Reading Time Taken Comments Blood Pressure 164/84 03/24/2025 10:53 AM EDT Pulse 88 03/24/2025 10:53 AM EDT Temperature 36.6 C (97.8 F) 03/24/2025 10:53 AM EDT Respiratory Rate 20 03/24/2025 10:53 AM EDT Oxygen Saturation 93% 03/24/2025 10:53 AM EDT Inhaled Oxygen Concentration - - Weight 122 kg (269 lb) 03/24/2025 10:53 AM EDT Height 156.2 cm (5' 1.5 ) 03/24/2025 10:53 AM ED T Body Mass Index 50 03/24/2025 10:53 AM EDT Plan of Treatment Upcoming Encounters Date Type Department Care Team (Late st Contact Info) Description 04/14/2025 11:15 AM EDT Office Visit [facility] [address] [place] [address] Dee Valenzuela MD [address] [place] [address] 04/30/2025 10:30 AM EDT Medication Management [facility] [address] [place] [address] Aggie Campuzano, PharmD [address] [place] [address] Health Maintenance Due Date Last Done Comments CT Colonography 1967 Colonoscopy 1967 Colorectal Cancer Screening 1967 Dental Prophylaxis 1967 Dental X-Ray: Bitewings 1967 FIT DNA/Cologuard 1967 FIT 1967 FOBT 1967 HIV Screening 1967 Sigmoidoscopy 1967 Disability Screening 1967 Eye Exam 10/26/1977 Alcohol/Substance Use Screening 1979 Diabetes: Urine Protein Screening 10/26/1986 Pap Smear 10/26/1988 Mammogram 04/06/2020 04/06/2018 Cervical Cancer Screening 07/05/2021 HPV/Cotest 07/05/2021 07/05/2016 Depression Monitoring 01/18/2023 07/20/2022, 022 COVID-19 Vaccine ( season) 2024 11/11/2020, 10/14/2020 Lipid Panel 01/10/2025 01/11/2024, 10/06/2022 Influenza Vaccine (#1) 2025 , 07/05/2023, 08/30/2022, Additional history exists Dental Oral Exam 05/24/2025 11/21/2024, 05/22/2008 Diabetes: Hemoglobin A1C 09/24/2025 025, 12/18/2024, 09/11/2024, Additional history exists SDOH Screening 12/11/2025 12/11/2024 Diabetes: Foot Exam 12/18/2025 12/18/2024 Tobacco Screening 03/24/2026 03/24/2025 Dental X-Ray: Full Mouth 11/23/2027 11/21/2024 DTaP/Tdap/Td Vaccines (2 - Td or Tdap) 05/07/2029 05/07/2019, 01/10/2008, 01/10/2008 RSV Patients and Patients Aged 60 years or older (1 - 1-dose 75+ series) 10/26/2042 Hepatitis A Vaccines Aged Out 01/11/2011, 05/18/20 10 No longer eligible based on patient's age to complete this topic Hepatitis B Vaccines Completed 05/07/2019, 01/11/2011, 05/18/2010 Zoster Vaccines Completed 04/09/2020, 09/19/2019 Pneumococcal Vaccine: 50+ Years Completed 10/10/2023, 06/01/2015, 05/19/2011 Hepatitis C Screening Completed 01/15/2025 , 03/19/2024, 12/26/2023, Additional history exists HIB Vaccines Aged Out No longer eligi ble based on patient's age to complete this topic HPV Vaccines Aged Out No longer eligi ble based on patient's age to complete this topic IPV Vaccines Aged Out No longer eligi ble based on patient's age to complete this topic Meningococcal B Vaccine Aged Out No l onger eligible based on patient's age to complete this topic Meningococcal Vaccine Aged Out No fareed charles eligible based on patient's age to complete this topic RSV under 20 months Aged Out No longe r eligible based on patient's age to complete this topic Rotavirus Vaccines Aged Out No longer eligible based on patient's age to complete this topic Procedures Procedure Name Priority Date/Time Associated Diagnosis Comments AMB REFERRAL TO ORTHOPAEDIC SURGERY Routine 03/31/2025 Closed nondisplaced fracture of phalanx of left great toe, unspecified phalanx, initial encounter XR TOES 2+ VIEWS LEFT Routine 03/24/2025 1:00 PM EDT Great toe pain, left VITAMIN B12 Routine 03/24/2025 11:35 AM EDT SED RATE BY MODIFIED WESTERGREN Routine 03/24/2025 11:35 AM EDT Great toe pain, left C-REACTIVE PROTEIN Routine 03/24/2025 11 :35 AM EDT Great toe pain, left URIC ACID Routine 03/24/2025 11:35 AM EDT Great toe pain, left POCT GLUCOSE Routine 03/24/2025 11:04 AM EDT Type 2 diabetes mellitus with other specified complication, with long-term current use of insulin (CMS/HCC) POCT GLYCATED HEMOGLOBIN, TOTAL Routine 03/24/2025 11:03 AM EDT Type 2 diabetes mellitus with other specified complication, with long-term current use of insulin (CMS/HCC) VITAMIN B12 Routine 03/24/2025 Type 2 diabetes mellitus with other specified complication, with long-term current use of insulin (CMS/HCC) POCT GLUCOSE Routine 01/28/2025 3:04 PM EDT Dizziness T-SPOT(R).TB Routine 01/15/2025 9:56 AM EDT Type 2 diabetes mellitus without complication, without long-term current use of insulin (CMS/HCC) HEPATITIS PANEL, GENERAL Routine 01/15/2025 9:56 AM EDT SED RATE BY MODIFIED WESTERGREN Routine 01/15/2025 9:56 AM EDT C-REACTIVE PROTEIN Routine 01/15/2025 9: 56 AM EDT COMPREHENSIVE METABOLIC PANEL Routine 01/15/2025 9:56 AM EDT CBC WITH AUTO DIFFERENTIAL Routine 01/15/2025 9:56 AM EDT PANORAMIC RADIOGRAPHIC IMAGE Routine 11/21/2024 9:00 AM EDT PERIODIC ORAL EVALUATION - ESTABLISHED PATIENT Routine 11/21/2024 9:00 AM EDT LIPID PANEL, STANDARD Routine 01/11/2024 9:59 AM EDT Type 2 diabetes mellitus without complication, without long-term current use of insulin ([facility]) BI MAMMOGRAM SCREENING BILATERAL Routine 04/06/2018 12:49 PM EDT ZZZ HISTORICAL HPV MRNA E6/E7 Routine 07/05/2016 9:30 AM EST from Last 3 Months or Most Recently Relevant to Health Maintenance Results * Referral to Orthopaedic Surgery (03/31/2025) us Dee Valenzuela MD OUTPATIENT REFERRAL ORDERAB LES Final Result * XR Toes 2+ Left (03/24/2025 1:00 PM EDT) Anatomical Region Laterality Modality Lower Extremities, Toes Left [facility] 03/24/2025 1:00 PM EDT Narrative 03/24/2025 1:17 PM EDT [address] [address] XRay Report Signed Patient: Lilliam Geller MR#: [id number] : 1965 Acct:[id number] Age/Sex: 59 / F ADM Date: 03/24/25 Loc: [facility] Attending Dr: Dee Valenzuela MD Ordering Physician: Dee Valenzuela MD Date of Service: 03/24/25 Procedure(s): XR toe LT min 2V Accession Number(s): [id number] cc: Dee Valenzuela MD EXAMINATION: XR TOES 2 OR MORE VIEWS LEFT HISTORY: left big toe pain COMPARISON: Comparison is made with the prior examination of the left foot dated 01/12/2022. FINDINGS: Three views of the left foot are submitted. Osseous mineralization is normal. There is a comminuted intra-articular fracture of the proximal phalanx of the great toe. The joint spaces are preserved. The soft tissues are unremarkable. XR/XR toe LT min 2V IMPRESSION: Comminuted intra-articular fracture of the proximal phalanx of the great toe. Electronically signed by: Carter Deng MD 03/24/2025 01:15 PM EDT RP Dictated By: Carter Deng MD Signed By: <Electronically signed by Carter Deng MD in OV> 03/24/25 1315 DD/ 1300 TD/TT: 03/24/25 1311 Seismometer Operator: Procedure Note Donotuseinterpreter, Image - 03/24/[address] [address] XRay Report Signed Patient: Lilliam GellerMR#: [id number] : 1965Acct:[id number] Age/Sex: 59 / FADM Date: 03/24/25 Loc: [facility] Attending Dr: Dee Valenzuela MD Ordering Physician: Dee Valenzuela MD Date of Service: 03/24/25 Procedure(s): XR toe LT min 2V Accession Number(s): [id number] cc: Dee Valenzuela MD EXAMINATION: XR TOES 2 OR MORE VIEWS LEFT HISTORY: left big toe pain COMPARISON: Comparison is made with the prior examination of the left foot dated 01/12/2022. FINDINGS: Three views of the left foot are submitted. Osseous mineralization is normal. There is a comminuted intra-articular fracture of the proximal phalanx of the great toe. The joint spaces are preserved. The soft tissues are unremarkable. XR/XR toe LT min 2V IMPRESSION: Comminuted intra-articular fracture of the proximal phalanx of the great toe. Electronically signed by: Carter Deng MD 03/24/2025 01:15 PM EDT RP Dictated By: Carter Deng MD Signed By: <Electronically signed by Carter Deng MD in OV> 03/24/25 1315 DD/ 1300 TD/TT: 03/24/25 1311 Seismometer Operator: us Dee Valenzuela MD IMG XR PROCEDURES Final Res ult * (ABNORMAL) Sed Rate by Modified [place] (03/24/2025 11:35 AM EDT) Only the most recent of2 resultswithin the time period is included. Pathologist [facility] Erythrocyte Sedimentation Rate 31(H) 0 - 20 MM/HR [facility] Comment:Patients with polycy themia and many hemoglobin abnormalitiesmay have depressed sed rates whereas patients with anemiamay have elevated sed rates. Blood Venous blood specimen / Unknown 03/24/2025 11:35 AM EDT 03/24/2025 1:59 PM EDT us Dee Valenzuela MD LAB BLOOD ORDERABLES Final Result [facility] [address] [place] [address] [phone] * (ABNORMAL) C-reactive Protein (03/24/2025 11:35 AM EDT) Only the most recent of2 resultswithin the time period is included. Pathologist [facility] C Reactive Protein 2.53(H) < or = 0.50 mg/dL [facility] Blood Venous blood specimen / Unknown 03/24/2025 11:35 AM EDT 03/24/2025 1:59 PM EDT Dee Valenzuela MD LAB BLOOD ORDERABLES Final Result Performing Organization Address [facility] Co de Phone Number [facility] [address] [place] [phone] * (ABNORMAL) Uric acid (03/24/2025 11:35 AM EDT) Uric Acid 6.3(H) 2.4 - 5.7 mg/dL [facility] Blood Venous blood specimen / Unknown 03/24/2025 11:35 AM EDT 03/24/2025 1:59 PM EDT Dee Valenzuela MD LAB BLOOD ORDERABLES Final Result Performing Organization Address [facility] Co de Phone Number [facility] [address] [place] [phone] * Vitamin B12 (03/24/2025 11:35 AM EDT) Only the most recent of2 resultswithin the time period is included. Vitamin B12 358 200 - 900 pg/mL [facility] Comment:NORMAL 200-900 PG/ML INDETERMINATE 160-199 PG/ML DEFICIENT < 160 PG/ML 03/24/2025 11:3 5 AM EDT 03/24/2025 1:59 PM EDT us Dee Valenzuela MD LAB BLOOD ORDERABLES Final Result Performing Organization Address [facility] Co de Phone Number [facility] [address] [place] [phone] * POCT Glucose (03/24/2025 11:04 AM EDT) Only the most recent of2 resultswithin the time period is included. Glucose Blood, POC 119 60 - 200 mg/dL QC Media Lot # [id number] Comment:RANDOM Lot# Expiration Date Blood Capillary blood specimen / Unknown 03/24/2025 11:04 AM EDT Dee Valenzuela MD POINT OF CARE TEST ENTER/ED IT ORDERABLES Final Result * (ABNORMAL) POCT HGB A1C (03/24/2025 11:03 AM EDT) Hemoglobin A1C 6.5(A) 4.0 - 5.7 % QC Media Lot # [id number] Lot# Expiration Date Blood 03/24/2025 11:0 3 AM EDT Dee Valenzuela MD POINT OF CARE TEST ENTER/ED IT ORDERABLES Final Result * T-SPOT??.TB (01/15/2025 9:56 AM EDT) T Spot TB Negative Negative [facility] Comment:A negative test resu lt does [...] as aquantitative test. TS PANEL A 0 [facility] TS PANEL B 0 [facility] Negative Control Passed [facility] Positive Control Passed [facility] Comment:For additional infor matketurah, please refer tohttp://education.Abakus/faq/HWX907(This link is being provided for informational/educational purposes only.)THIS TEST WAS PERFORMED AT:[email or web address] [id number] [place] [id number] BARTLETT MD,PHD 01/15/2025 9:56 AM EDT 01/15/2025 9:56 AM EDT Generic External Data Provider LAB BLOOD ORDERAB LES Final Result Performing Organization Address [facility] de Phone Number [facility] [address] [place] [address] [phone] * (ABNORMAL) Hepatitis Panel, General (01/15/2025 9:56 AM EDT) Pathologist [facility] Hepatitis A IgM Nonreactive Nonreactive [facility] Comment:IgM antibodies to MARQUIS V not detected; does not exclude earlyacute or recovered HAV infection. ~Hepatitis B Surface Antibody NONREACTIVE Nonreactive [facility] Comment:Nonreactive: < 8.00 mIU/mL Hepatitis B Core Antibody Nonreactive Nonreactive [facility] Hepatitis C Antibody Reactive(A) Nonreactive [facility] Comment:Presumptive evidence of antibodies to HCV. Hepatitis B Surface Ag Negative Negative [facility] 01/15/2025 9:56 AM EDT 01/15/2025 9:56 AM EDT Generic External Data Provider LAB BLOOD ORDERAB LES Final Result Performing Organization Address [facility] de Phone Number [facility] [address] [place] [address] [phone] * (ABNORMAL) CBC auto differential (01/15/2025 9:56 AM EDT) Pathologist [facility] White Blood Count 8.9 4.8 - 10.8 X10*3/uL [facility] Red Blood Count 4.26 4.20 - 5.50 X10*6/uL [facility] Hemoglobin 10.7(L) 12.0 - 16.0 g/dl [facility] Hematocrit 37.4 37.0 - 47.0 % [facility] Mean Corpuscular Volume 87.8 80.0 - 98.0 fL [facility] Mean Corpuscular Hemoglobin 25.1(L) 27.0 - 33.0 pg [facility] Mean Corpuscular HGB Conc 28.6(L) 31.0 - 35.0 g/dl [facility] Red Cell Distribution Width 14.6 11.0 - 16.0 % [facility] Platelet Count 230 160 - 400 X10*3/uL [facility] Mean Platelet Volume 10.2 9.4 - 12.3 fL [facility] Neutrophils Percent Auto 78.9(H) 45 - 73 % [facility] Imm Gran Pct Auto 1.2(H) 0.0 - 0.4 % [facility] Lymphocytes Percent Auto 12.1(L) 20 - 40 % [facility] Monocytes Percent Auto 7.5 2 - 11 % [facility] Eosinophils Percent Auto 0.0 0 - 4 % [facility] Basophils Percent Auto 0.3 0 - 2 % [facility] NRBC Pct Auto 0.0 0.0 - 0.2 /100WBC [facility] Neutrophils Absolute Auto 7.0 2.0 - 8.3 x10*3/uL [facility] Imm Gran Abs Auto 0.11(H) 0.00 - 0.03 X10*3/uL [facility] Lymphocytes Absolute Auto 1.1(L) 1.2 - 4.9 X10*3/uL [facility] Monocytes Absolute Auto 0.7 0.1 - 1.2 X10*3/uL [facility] Eosinophils Absolute Auto 0.0 0.0 - 0.4 X10*3/uL [facility] Basophils Absolute Auto 0.0 0.0 - 0.2 X10*3/uL [facility] NRBC Abs Auto 0.000 0.0 - 0.012 X10*3/uL [facility] 01/15/2025 9:56 AM EDT 01/15/2025 9:56 AM EDT us Generic External Data Provider LAB BLOOD ORDERAB LES Final Result Performing Organization Address City/[facility]/ZIP Co de Phone Number [facility] [address] [place] [phone] * (ABNORMAL) Comprehensive Metabolic Panel (01/15/2025 9:56 AM EDT) Sodium 141 135 - 145 mmol/L [facility] Potassium 4.2 3.3 - 5.1 mmol/L [facility] Chloride 99 96 - 108 mmol/L [facility] Carbon Dioxide 37(H) 22 - 29 mmol/L [facility] Anion Gap 9(L) 12 - 20 [facility] Urea Nitrogen (BUN) 11 9 - 16 mg/dL [facility] Creatinine, Serum 0.82 0.5 - 1.4 mg/dL [facility] Estimated Glomerular Filt Rate >60 [facility] Comment:Chronic Kidney Disea se: Estimated GFR < 60 mL/min/1.24f1Gdopff Kidney Disease: Estimated GFR < 15 mL/min/1.73m2 Glucose 187(H) 60 - 115 mg/dL [facility] Calcium 8.9 8.4 - 10.2 mg/dL [facility] Bilirubin, Total 0.3 0.0 - 1.0 mg/dL [facility] Aspartate Amino Transferase 21 5 - 31 U/L [facility] Alanine Aminotransferase 21 0 - 31 U/L [facility] Total Protein 7.5 6.5 - 8.0 g/dL [facility] Albumin Level 4.1 3.5 - 5.0 g/dL [facility] Alkaline Phosphatase 118(H) 39 - 117 U/L [facility] 01/15/2025 9:56 AM EDT 01/15/2025 9:56 AM EDT us Generic External Data Provider LAB BLOOD ORDERAB LES Final Result [facility] [address] [place] [phone] * Lipid Panel, Standard (01/11/2024 9:59 AM EDT) Triglycerides 126 <150 mg/dL [facility] Comment:Desirable Triglyceri de: less than 150 mg/dLBorderline High Triglyceride 150-199 mg/dLHigh Triglyceride: 200-499 mg/dLVery High Triglyceride: greater than or equal to 5OO mg/dL Cholesterol 153 <200 mg/dL [facility] Comment:Desirable Cholestero l: less than 200 mg/dLBorderline High Cholesterol: 200-239 mg/dLHigh Cholesterol: greater than 239 mg/dL LDL Cholesterol Calculated 58 <100 mg/dL [facility] Comment:Desirable LDL: less than 100 mg/dLNear Optimal/Above Optimal LDL: 110- 129 mg/dLBorderline High LDL: 130-159 mg/dLHigh LDL: 160-189 mg/dLVery High LDL: greater than or equal to 190 mg/dL HDL Cholesterol 70 >40 mg/dL [facility] Comment:Desirable HDL: great er than 40 mg/dL Note: This HDL assay may give artificially low results in patients with liver disease. Blood Venous blood specimen / Unknown 01/11/2024 9:59 AM EDT 01/11/2024 2:02 PM EDT Dee Valenzuela MD LAB BLOOD ORDERABLES Final Result [facility] [address] [place] [phone] * DIGITAL BILATERAL SCREEN 1 (04/06/2018 12:49 PM EDT) Anatomical Region Laterality Modality Breast Bilateral Mammography 04/06/2018 12:4 9 PM EDT Narrative 04/06/2018 12:51 PM EDT Refer to the Notes tab for result details [facility] Procedure: DIGITAL BILATERAL SCREEN 1 Procedure Note Provider, MD Vlad - 10/29/2022 Refer to the Notes tab for result details [facility] Procedure: DIGITAL BILATERAL SCREEN 1 us Dee Valenzuela MD IMG BI PROCEDURES Final Res ult * HPV mRNA E6/E7 (07/05/2016 9:30 AM EST) HPV mRNA E6/E7 Not Detected NOT DETECTED [facility] Comment: This test was performed using the APTIMA(R) HPV Assay ([employer] This assay detects E6/E7 viral messenger RNA (mRNA) from 14 high-risk HPV types (16,18,31,33,35,39,45,51, 52,56,58,59,66,68). For additional information please refer to: http://education.Abakus/faq/EHU983d3 (This link is being provided for informational/ educational purposes only.) Test Performed by [employer], [email or web address] [facility], [address] [place] [id number] Curtis Bartlett M.D., Ph.D., Director of Laboratories , [facility] [id number] Please note: Effective 04/18/2016, HPV testing will be performed using [employer]s APTIMA test which targets mRNA. Detecting mRNA instead of DNA, as in older methods, offers significant improvements in specificity. 07/05/2016 9:30 AM EST us Soila Sahu CNM HISTORICAL/NON ORDERABLE LABS Final Result [facility] [address] from Last 3 Months or Most Recently Relevant to Health Maintenance Insurance MEDICARE [facility] STANDARD DENTAL-[facility] MEDICAID STAND ADULT Care Teams Binding Bench Worker Relationship Specialty Start Date End Date Beauzile, Thevenin, MD [address] [place] [phone] PCP - General Internal Medicine 10/11/13 Aggie Campuzano, ClaraD [address] [place] [phone] Pharmacist Pharmacy 02/12/25
--- OUTSIDE RECORDS SUMMARY | 2025-04-04 11:50 | XMS_ITS | Encounter Summary ---
Author Organization [employer] Address [address] [facility] 7 [place] [address] Care Team Providers Care Product Safety Consultant Name Role Phone Dee Valenzuela MD Primary Care Provider [phone] Aggie Campuzano PharmD Unavailable [phone] Encounter Details Date Type Department Care Team ([facility] st Contact Info) Description 07/02/2024 Orders Only [facility] [address] [place], [place] [phone] Dee Valenzuela MD [address] [place] [address] Type 2 diabetes mellitus without complication, without long-term current use of insulin (CMS/HCC); Type 2 diabetes mellitus with hyperglycemia (CMS/HCC) Social History Tobacco Use Types Packs/Day Years [...] Description 04/14/2025 11:15 AM EDT Office Visit [facility] [address] [place] [address] Dee Valenzuela MD [address] [place] [address] 04/30/2025 10:30 AM EDT Medication Management [facility] [address] [place] [address] Aggie Campuzano, PharmD [address] [place], [place] [phone] documented as of this encounter Visit Diagnoses Diagnosis Type 2 diabetes mellitus without complication, without long-term current use of insulin (CMS/HCC) Type 2 diabetes mellitus with hyperglycemia ([facility]/HCC) documented in this encounter Additional Health Concerns Assessment Noted Time PHQ-9 Depression Total Score: 17 022 12:14 PM EST documented as of this encounter Care Teams Product Safety Consultant Relationship Specialty Start Date End Date Dee Valenzuela MD [address] [place] [address] PCP - General Internal Medicine 10/11/13 Aggie Campuzano, ClaraD [address] [place] [phone] Pharmacist Pharmacy 02/12/25 documented as of this encounter
--- OUTSIDE RECORDS SUMMARY | 2025-04-04 11:50 | XMS_ITS | Encounter Summary ---
Author Organization [employer] Address [address] [facility] 7 [place] [address] Care Team Providers Care Marketing Database Coordinator Name Role Phone Dee Valenzuela MD Primary Care Provider [phone] Aggie Campuzano PharmD Unavailable [phone] Reason for Visit * Reason Comments Med Refill Encounter Details Date Type Department Care Team ([facility] st Contact Info) Description 04/03/2025 Refill [facility] [address] [place], [place] [phone] Dee Valenzuela MD [address] [place], [place] [phone] Primary hypertension Social History Tobacco Use Types Packs/Day Years [...] Description 04/14/2025 11:15 AM EDT Office Visit [facility] [address] [place] [address] Dee Valenzuela MD [address] [place] [address] 04/30/2025 10:30 AM EDT Medication Management [facility] [address] [place] [address] Aggie Campuzano PharmD [address] [place] [address] documented as of this encounter Visit Diagnoses Diagnosis Primary hypertension Unspecified essential hypertension documented in this encounter Additional Health Concerns Assessment Noted Time PHQ-9 Depression Total Score: 17 022 12:14 PM EST documented as of this encounter Care Teams Marketing Database Coordinator Relationship Specialty Start Date End Date Dee Valenzuela MD [address] [place] [address] PCP - General Internal Medicine 10/11/13 Aggie Campuzano PharmD [address] [place] [address] Pharmacist Pharmacy 02/12/25 documented as of this encounter
--- OUTSIDE RECORDS SUMMARY | 2025-04-04 11:50 | XMS_ITS | Encounter Summary ---
Author Organization [employer] Address [address] [facility] 7 [place] [address] Care Team Providers Care Power Generating Plant Operator Name Role Phone Dee Valenzuela MD Primary Care Provider [phone] Aggie Campuzano PharmD Unavailable [phone] Reason for Visit * Reason Onset Date Comments FYI 10/14/2024 Encounter Details Date Type Department Care Team ([facility] st Contact Info) Description 10/14/2024 Telephone [facility] [address] [place], [place] [phone] Dee Valenzuela MD [address] [place], [place] [phone] FYI Social History Tobacco Use Types Packs/Day Years [...] encounter Miscellaneous Notes * Telephone Encounter - Shannon Gurrola RN - 10/15/2024 12:29 PM EDT Noted. * Telephone Encounter - Kamila Jain - 10/15/2024 12:18 PM EDT Tc from [facility] with [facility] returning call to inform was unable to meet/reach pt today and will be trying again 10/16/24. * Telephone Encounter - Luisana Mcdaniel RN - 10/14/2024 1:28 PM EDT Noted * Telephone Encounter - Kamila Jain - 10/14/2024 1:17 PM EDT Tc from [facility] with [facility] calling to inform pt will be starting home care services tomorrow 10/15/24. documented in this encounter Plan of Treatment Upcoming Encounters Date Type Department Care Team (Late st Contact Info) Description 04/14/2025 11:15 AM EDT Office Visit [facility] [address] [place] [address] Dee Valenzuela MD [address] [place] [address] 04/30/2025 10:30 AM EDT Medication Management [facility] [address] [place] [address] Aggie Campuzano [employer] [address] [place] [address] documented as of this encounter Visit Diagnoses Not on filedocumented in this encounter Additional Health Concerns Assessment Noted Time PHQ-9 Depression Total Score: 17 022 12:14 PM EST documented as of this encounter Care Teams Power Generating Plant Operator Relationship Specialty Start Date End Date Dee Valenzuela MD [address] [place] [address] PCP - General Internal Medicine 10/11/13 Aggie Campuzano PharmD [address] [place] [address] Pharmacist Pharmacy 02/12/25 documented as of this encounter
== END 2025-04-04 12:05 | disposition home or self-care (01) ==
LOC: HO.HGI 11:08
PROVIDERS: PCP Internal Medicine; Visit Provider Nurse Practitioner
DX: K21.9 Gastro-esophageal reflux disease without esophagitis (principal); K58.2 Mixed irritable bowel syndrome
CPT/HCPCS: 99213

== ENCOUNTER → 2025-04-04 11:07 | Outpatient (BNVA) | payer MEDICARE, MEDICAID, SELFPAY | PROVIDERS: PCP Internal Medicine; Visit Provider Nurse Practitioner | DX: K58.2 Mixed irritable bowel syndrome (principal); K30 Functional dyspepsia; K21.9 Gastro-esophageal reflux disease without esophagitis; Z12.11 Encounter for screening for malignant neoplasm of colon; Z12.12 Encounter for screening for malignant neoplasm of rectum | CPT/HCPCS: 99212 ==

== ENCOUNTER 2025-04-24 13:49 | Outpatient (REF) | payer MEDICARE, MEDICAID, SELFPAY ==
--- NOTE | ~2025-04-24 | XR_ITS ---
EXAMINATION: XR SHOULDER, LEFT CLINICAL INFORMATION: left shoulder pain with radicular symptoms COMPARISON: Correlated to chest x-ray dated August 27, 2024. TECHNIQUE: AP internal and external rotation and axillary views of the left shoulder. FINDINGS: No acute cortical disruption or malalignment. No lytic or blastic lesions. Mild sclerosis along the articular surface of the acromioclavicular joint. No soft tissue calcifications. XR/XR shoulder LT min 2V IMPRESSION: Mild osteoarthritis/osteoarthrosis, left acromioclavicular joint. Electronically signed by: Skyler Camara MD 04/24/2025 02:45 PM EDT
--- NOTE | ~2025-04-24 | XR_ITS ---
EXAMINATION: XR CERVICAL SPINE CLINICAL INFORMATION: symptoms of let radiculopathy COMPARISON: January 12, 2022 TECHNIQUE: AP lateral and atlantoodontoid views. FINDINGS: Craniocervical junction is intact. Multilevel marginal osteophyte formation and endplate sclerosis decreased intervertebral disc height and likely subacute cortical cyst at C3-4, C4-5 and C5-6 level. No acute cortical disruption. Normal alignment. No lytic or blastic lesions. Probable soft tissue calcifications related to the carotic arteries. Poor dentition. XR/XR cervical spine 3V IMPRESSION: Multilevel spondylosis C3 C6 pronounced at C5-6. Slight worsening since prior exam. Electronically signed by: Skyler Camara MD 04/24/2025 02:44 PM EDT
--- OUTSIDE RECORDS SUMMARY | 2025-04-24 13:20 | XMS_ITS | Encounter Summary ---
Author Organization [employer] Address [address] [facility] 7t [place] [address] Care Team Providers Care Materials Management Clerk Name Role Phone Dee Valenzuela MD Primary Care Provider [phone] Aggie Campuzano PharmD Unavailable [phone] Reason for Referral * Consultation (Routine) - Pending Review Specialty Diagnoses / Procedures Referred By Lurdes freeman Referred To Contact Orthopaedic Surgery Diagnoses Acute pain of left shoulder Keya Vang MD [address] [place] [address] Phone: tel: fax: Referral ID Status Reason Start Date Expiration Date Visits Requested Visits Authorized [id number] Pending Review Specialty Services Required 04/24/2025 04/24/2026 1 1 * Medications - Closed Specialty Diagnoses / Procedures Referred By Lurdes freeman Referred To Contact Diagnoses Acute pain of left shoulder Keya Vang MD [address] [place] [address] Phone: tel: fax: Referral ID Status Reason Start Date Expiration Date Visits Re quested Visits Authorized [id number] Closed 1 1 Reason for Visit * Reason Comments Shoulder Pain Encounter Details Date Type Department Care Team (Latest Contact Info) Description 04/24/2025 1:20 PM EDT Office Visit [facility] [address] [place] [address] Keya Vang MD [address] [place] [address] Acute pain of left shoulder (Primary Dx); Left cervical radiculopathy Social History Tobacco Use Types Packs/Day Years Used Date Smoking Tobacco: Former Cigarettes Smokeless Tobacco: Never Tobacco Cessation:Counseling Given: Not Answered Alcohol Use Standard Drinks/Week Comments Never 0 (1 standard drink = 0.6 oz pur e alcohol) Depression Answer Date Recorded Patient Health Questionnaire-9 Score 0 04/14/2025 Patient Health Questionnaire-9 Score 0 04/14/2025 Last PHQ-9: Questionnaire Data Not on file 0 04/14/2025 Housing Stability Answer Date Recorded What is [...] Answer Date Recorded Patient Health Questionnaire-2 Score 0 04/14/2025 Internet Access Answer Date Recorded Internet Access Q1 Yes 04/08/2024 Internet Access Q2 Not on file 04/08/2024 Comments Unknown Sex and Gender Information Value Date Recorded Sex Assigned at Female 06/06/2022 10:19 AM EDT Legal Sex Female 10:19 AM EDT Gender Identity Female 06/06/2022 10:19 AM EDT Sexual Orientation Straight 06/06/2022 10 :19 AM EDT documented as of this encounter Last Filed Vital Signs Vital Sign Reading Time Taken Comments Blood Pressure 125/80 04/24/2025 1:23 PM EDT Pulse 90 04/24/2025 1:23 PM EDT Temperature 36.7 C (98.1 F) 04/24/2025 1:23 PM EDT Respiratory Rate 18 04/24/2025 1:23 PM EDT Oxygen Saturation 97% 04/24/2025 1:23 PM EDT Inhaled Oxygen Concentration - - Weight 122 kg (269 lb) 04/24/2025 1:23 PM EDT Height - - Body Mass Index 50 04/14/2025 11:29 AM EDT documented in this encounter Progress Notes * Lobo Troy - 04/24/2025 1:40 PM EDT Subjective Patient ID: Lilliam Pearl is a 59 y.o. female with past medical history of hypertension, type 2 diabetes, iron deficiency, rheumatoid arthritis, and COPD who presents to walk in clinic for Shoulder Pain. Pt reports pain to her left shoulder, radiating down her arm for the past 2 days. Denies any incident of onset or trauma. She notes difficulty with ROM and muscle tenderness. Denies any hx of shoulder pathology or surgeries. Review of Systems Constitutional: Negative for fever and unexpected weight change. Respiratory: Negative for shortness of breath. Cardiovascular: Negative for chest pain. Gastrointestinal: Negative for abdominal pain. Genitourinary: Negative for difficulty urinating. Objective Visit Vitals BP 125/80 (BP Location: Right arm, Patient Position: Sitting, BP Cuff Size: Adult) Pulse 90 Temp 98.1 ??F (36.7 ??C) (Temporal) Resp 18 Body mass index is 50 kg/m??. Physical Exam Constitutional: Appearance: Normal appearance. Comments: On supplemental oxygen. Cardiovascular: Rate and Rhythm: Normal rate. Pulmonary: Effort: Pulmonary effort is normal. Musculoskeletal: Left shoulder: Tenderness (glenohumeral joint and down the deltoid) present. Decreased range of motion (no forward flexion past 90, abduction only to 90). Cervical back: Normal range of motion and neck supple. Comments: Spasm of deltoid, marked kyphosis. Neurological: General: No focal deficit present. Mental Status: She is alert. Psychiatric: Behavior: Behavior normal. Assessment & Plan Acute pain of left shoulder -No evidence of acute trauma. Etiology unspecified wether radiculopathy from c- spine or shoulder pathology. Symptoms moderate. -Pt requested and prescribed lidocaine patch 04/24/25. -Ordered left shoulder and C-spine XR 04/24/25. -Referred to Orthopedics 04/24/25 -ER precautions discussed. -Seek medical attention for worsening symptoms. Orders: XR CERVICAL SPINE 3V; Future XR Shoulder 2+ Views Left; Future lidocaine (Lidoderm) 5 % patch; Apply 1 patch topically Once per day. Remove & discard patch within 12 hours or as directed by MD. Referral to Orthopaedic Surgery; Future Left cervical radiculopathy -No evidence of acute trauma. Etiology unspecified wether radiculopathy from c- spine or shoulder pathology. Symptoms moderate. -Pt requested and prescribed lidocaine patch 04/24/25. -Ordered left shoulder and C-spine XR 04/24/25. -Referred to Orthopedics 04/24/25 -ER precautions discussed. -Seek medical attention for worsening symptoms. Orders: XR CERVICAL SPINE 3V; Future Future Appointments Date Time Provider Department Center 04/30/2025 10:30 AM Aggie Campuzano PharmD [facility] MED [facility] Lobo Talavera, am serving as a scribe to document services personally performed by Dr. Salamanca, based on the patient's response to questions by provider and providers statements to me. documented in this encounter Plan of Treatment Upcoming Encounters Date Type Department Care Team (Late st Contact Info) Description 04/30/2025 10:30 AM EDT Medication Management [facility] MED & PEDS [address] [place] [address] Aggie Campuzano PharmD [address] [place] [address] Scheduled Orders Name Type Priority Associated Diagnoses Orde r Schedule XR CERVICAL SPINE 3V Imaging Routine Acute pain of left shoulder Left cervical radiculopathy Expected: 04/24/2025, Expires: 04/24/2026 XR Shoulder 2+ Views Left Imaging Routine Acute pain of left shoulder Expected: 04/24/2025, Expires: 04/24/2026 Scheduled Referrals Name Type Priority Associated Diagnoses Order Schedule Referral to Orthopaedic Surgery Outpatient Referral Routine Acute pain of left shoulder Expected: 04/24/2025 (Approximate), Expires: 04/24/2026 documented as of this encounter Visit Diagnoses Diagnosis Acute pain of left shoulder- Primary Left cervical radiculopathy documented in this encounter Additional Health Concerns Assessment Noted Time PHQ-9 Depression Total Score: 0 04/14/20 3:23 PM EDT documented as of this encounter Care Teams Materials Management Clerk Relationship Specialty Start Date End Date Dee Valenzuela MD [address] [place] [address] PCP - General Internal Medicine 10/11/13 Aggie Campuzano PharmD [address] [place] [address] Pharmacist Pharmacy 02/12/25 documented as of this encounter
--- OUTSIDE RECORDS SUMMARY | 2025-04-24 15:51 | XMS_ITS | Encounter Summary ---
Author Organization [employer] Address [address] [facility] 7t [place] [address] Care Team Providers Care Alum Plant Operator Name Role Phone Dee Valenzuela MD Primary Care Provider Aggie Campuzano PharmD Unavailable [phone] Encounter Details Date Type Department Care Team (Late st Contact Info) Description 07/02/2024 Orders Only [facility] MED & PEDS [address] [place], [place] [phone] Dee Valenzuela MD [address] [place], [place] [phone] Type 2 diabetes mellitus without complication, without long-term current use of insulin (CMS/HCC); Type 2 diabetes mellitus with hyperglycemia ([facility]/HCC) Social History Tobacco Use Types Packs/Day Years [...] Description 04/30/2025 10:30 AM EDT Medication Management [facility] MED [facility] PEDS [address] [place] [address] Aggie Campuzano PharmD [address] [place] [address] documented as of this encounter Visit Diagnoses Diagnosis Type 2 diabetes mellitus without complication, without long-term current use of insulin ([facility]) Type 2 diabetes mellitus with hyperglycemia ([facility]) documented in this encounter Additional Health Concerns Assessment Noted Time PHQ-9 Depression Total Score: 17 022 12:14 PM EST documented as of this encounter Care Teams Alum Plant Operator Relationship Specialty Start Date End Date Dee Valenzuela MD [address] [place], [place] [phone] PCP - General Internal Medicine 10/11/13 Aggie Campuzano PharmD [address] [place], [place] [phone] Pharmacist Pharmacy 02/12/25 documented as of this encounter
--- OUTSIDE RECORDS SUMMARY | 2025-04-24 15:51 | XMS_ITS | Clinical Summary ---
Author Organization [facility] Address [address] [facility] [address] [place] [address] Phone Care Team Providers Care Welfare Centre Manager Name Role Phone Unavailable Primary Care Provider [...] file Medical Devices Not on file Insurance [facility] [address] [place] [address] [place] [address] C[employer] Additional Source Comments The information contained in this document represents components of the legal health record. It is not the complete legal health record.[facility]
--- OUTSIDE RECORDS SUMMARY | 2025-04-24 15:51 | XMS_ITS | Encounter Summary ---
Author Organization [employer] Address [address] [facility] 7t [place] [address] Care Team Providers Care Rn Oncology Clinical Name Role Phone Dee Valenzuela MD Primary Care Provider [phone] Aggie Campuzano PharmD Unavailable [phone] Encounter Details Date Type Department Care Team ([facility] st Contact Info) Description 07/22/2024 Orders Only [facility] MED & PEDS [address] [place], [place] [phone] Dee Valenzuela MD [address] [place], [place] [phone] Social History Tobacco Use Types Packs/Day Years [...] Description 04/30/2025 10:30 AM EDT Medication Management [facility] MED & PEDS [address] [place] [address] Aggie Campuzano PharmD [address] [place] [address] documented as of this encounter Visit Diagnoses Not on filedocumented in this encounter Additional Health Concerns Assessment Noted Time PHQ-9 Depression Total Score: 17 022 12:14 PM EST documented as of this encounter Care Teams Rn Oncology Clinical Relationship Specialty Start Date End Date Dee Valenzuela MD [address] [place] [address] PCP - General Internal Medicine 10/11/13 Aggie Campuzano PharmD [address] [place] [address] Pharmacist Pharmacy 02/12/25 documented as of this encounter
--- OUTSIDE RECORDS SUMMARY | 2025-04-24 15:51 | XMS_ITS | Encounter Summary ---
Author Organization [employer] Address [address] [facility] 7t [place] [address] Care Team Providers Care Salesperson Household Appliances Name Role Phone Dee Valenzuela MD Primary Care Provider Aggie Campuzano PharmD Unavailable [phone] Encounter Details Date Type Department Care Team (Late st Contact Info) Description 04/29/2024 Orders Only [facility] MED & PEDS [address] [place], [place] [phone] Dee Valenzuela MD [address] [place], [place] [phone] Type 2 diabetes mellitus without complication, without [...] your housing situation today? I have darrick seymour 02/28/[address] you li [...] Description 04/30/2025 10:30 AM EDT Medication Management [facility] MED & PEDS [address] [place] [address] Aggie Campuzano PharmD [address] [place] [address] documented as of this encounter Visit Diagnoses Diagnosis Type 2 diabetes mellitus without complication, without long-term current use of insulin ([facility])- Primary documented in this encounter Additional Health Concerns Assessment Noted Time PHQ-9 Depression Total Score: 17 022 12:14 PM EST documented as of this encounter Care Teams Salesperson Household Appliances Relationship Specialty Start Date End Date Dee Valenzuela MD [address] [place], [place] [phone] PCP - General Internal Medicine 10/11/13 Aggie Campuzano PharmD [address] [place] [address] Pharmacist Pharmacy 02/12/25 documented as of this encounter
--- OUTSIDE RECORDS SUMMARY | 2025-04-24 15:51 | XMS_ITS | Clinical Summary ---
Author Organization [employer] Address [address] [place] [address] 7[address] [place] [address] Care Team Providers Care Liner Replacer Name Role Phone Dee Valenzuela MD Primary Care Provider Aggie Campuzano PharmD Unavailable [phone] Allergies Active Allergy Reactions Criticality Noted Date [...] mouth 1 (one) time each day. Active hydrocortisone (Anusol-HC) 2.5 % rectal creamIndications :Seborrheic dermatitis Apply rectally twice a daily in the morning and at bedtime as directed 30 g 023 Active sucralfate (Carafate) 1 g tabletIndication s:Epigastric pain TAKE 1 TABLET BY MOUTH THREE TIMES DAILY 1 HOUR BEFORE MEALS AND AT BEDTIME DIRECTED 90 tablet 1 023 Active Blood Glucose Monitoring Suppl (Health 123 Verio Flex System) device Inject 1 Units under the skin 3 times daily. Test blood sugar as directed 1 each 023 Active Lancets (Health 123 Delica Plus [id number]) miscIndications: Type 2 diabetes mellitus with hyperglycemia ([facility]) To check the blood sugar once a day 90 each 3 024 Active buPROPion XL (Wellbutrin XL) 300 MG 24 hr tablet Take 1 tablet by mouth in the morning. Active lamoTRIgine (LaMICtal) 200 MG tablet Take 1 tablet by mouth at bedtime. 025 Active mirtazapine (Remeron) 30 MG tablet Take 1 tablet by mouth at bedtime. Active Zenpep 89277-75256 units capsule delayed-release particles capsule Take 2 capsules by mouth 2 times daily. WITH MEALS OR SNACK Active glucose 4 g chewable tabletIndication s:Type 2 diabetes mellitus with hyperglycemia, without long-term current use of insulin ([facility]) Chew 4 tablets (16 g) if [...] 2 Active Fasenra Pen 30 MG/ML injection Active budesonide-formo terol (Symbicort) 160-4.5 MCG/ACT inhaler [...] 90 tablet 1 025 Active Continuous Glucose Sas Statistical Programmer (FreeStyle Juan Ramon [address] [place]) deviceIndication s:Type 2 diabetes mellitus without complication, without long-term current use of insulin (CMS/HCC) 1 each Once per day. Use as [...] tablets by mouth every day at bedtime 06/04/2 025 Active lidocaine (Xylocaine) 5 % ointmentIndicati [...] hyperglycemia, without long-term current use of insulin (CMS/HCC) Take ONE tablet in the morning and TWO tablets in the evening 90 tablet 1 025 Active glucose blood (OneTouch Verio) test stripIndications :Type 2 diabetes mellitus without complication, without long-term current use of insulin (CMS/HCC) To test the blood sugar 3 times a day 100 each 3 025 Active Trulicity 3 MG/0.5ML solution auto-injectorInd ications:Type 2 diabetes mellitus with hyperglycemia, without long-term current use of insulin (CMS/HCC) INJECT ONE PEN (= 3MG) SUBCUTANEOUSLY ONCE A WEEK DIRECTED 2 mL 1 025 Active hydroCHLOROthiaz lisa 12.5 MG tabletIndication s:Primary hypertension TAKE 1 TABLET BY MOUTH EVERY OTHER DAY IN THE MORNING 15 tablet 1 025 Active traMADol (Ultram) 50 MG tabletIndication s:Closed nondisplaced fracture of phalanx of left great toe, unspecified phalanx, initial encounter Take 1 tablet (50 mg) by mouth every 6 (six) hours if needed for severe pain. 15 tablet 025 Active lidocaine (Lidoderm) 5 % patchIndications :Acute pain of left shoulder Apply 1 patch topically Once per day. Remove & discard patch within 12 hours or as directed by . 15 patch 2 025 Active traMADol (Ultram) 50 MG tablet Take 50 mg by mouth every 6 (six) hours if needed for severe pain. 2024 Discontinued(R eorder (will not trigger notification to Pharmacy)) glucose blood (OneTouch Verio) test stripIndications :Type 2 diabetes mellitus without complication, without long-term current use of insulin ([facility]) To test the blood sugar 3 times a day 100 each 3 025 2024 Discontinued(R eorder (will not trigger notification to Pharmacy)) Trulicity 3 MG/0.5ML solution auto-injectorInd ications:Type 2 diabetes mellitus with hyperglycemia, without long-term current use of insulin ([facility]) INJECT ONE PEN (= 3MG) SUBCUTANEOUSLY ONCE A WEEK DIRECTED 2 mL 1 025 2024 Discontinued hydroCHLOROthiaz lisa 12.5 MG tabletIndication s:Primary hypertension TAKE 1 TABLET BY MOUTH EVERY OTHER DAY IN THE MORNING 15 tablet 1 025 2024 Discontinued metFORMIN XR (Glucophage-XR) 500 MG 24 hr tabletIndication s:Type 2 diabetes mellitus with hyperglycemia, without long-term current use of insulin ([facility]) TAKE 2 TABLETS BY MOUTH TWICE DAILY IN THE MORNING AND EVENING 120 tablet 1 025 2024 Discontinued(R eorder (will not trigger notification to Pharmacy)) traMADol (Ultram) 50 MG tabletIndication s:Closed nondisplaced fracture of phalanx of left great toe, unspecified phalanx, initial encounter Take 1 tablet (50 mg) by mouth every 6 (six) hours if needed for severe pain for up to 5 days. 15 tablet 025 2024 traMADol (Ultram) 50 MG tabletIndication s:Closed nondisplaced fracture of phalanx of left great toe, unspecified phalanx, initial encounter Take 1 tablet (50 mg) by mouth every 6 (six) hours if needed for severe pain. 15 tablet 025 2024 Discontinued(R eorder (will not trigger notification to Pharmacy)) Active Problems Problem Noted Date Diagnosed Date [...] Encounters Date Type Department Care Team Description 04/24/2025 1:20 PM EDT Office Visit [facility] [address] [place] [phone] Keya Vang MD Acute pain of left shoulder (Primary Dx); Left cervical radiculopathy 04/24/[address] [facility] [address] [place] [address] Dee Valenzuela MD Med Refill 04/24/2025 Travel 04/15/2025 Telephone [facility] [address] [place] [phone] Dee Valenzuela MD Care Coordination 04/14/2025 11:15 AM EDT Office Visit [facility] [address] [place] [address] Dee Valenzuela MD Closed nondisplaced fracture of phalanx of left great toe, unspecified phalanx, initial encounter (Primary Dx); Type 2 diabetes mellitus with other specified complication, with long-term current use of insulin ([facility]) 04/14/[address] [facility] [address] [place] [address] Dee Valenzuela MD 04/14/[address] [facility] [address] [place] [address] Dee Valenzuela MD 04/14/2025 Travel 04/11/[address] [facility] [address] [place] [address] Dee Valenzuela MD chart prep 04/08/[address] [address] Dee Valenzuela MD Closed nondisplaced fracture of phalanx of left great toe, unspecified phalanx, initial encounter (Primary Dx) 04/08/[address] [facility] [address] [place] [address] Dee Valenzuela MD Nondisplaced unspecified fracture of left great toe, initial encounter for closed fracture; Closed nondisplaced fracture of phalanx of left great toe, unspecified phalanx, initial encounter 04/03/[address] [facility] [address] [place] [address] Dee More MD Primary hypertension 03/28/2025 Refill [facility] [address] [place] [address] Dee Valenzuela MD Type 2 diabetes mellitus with hyperglycemia, without long-term current use of insulin ([facility]) 03/27/2025 Results Follow-Up [facility] [address] [place] [address] Elisha Villeda RN XR Toes 2+ Left, POCT Glucose, POCT HGB A1C, Additional followed-up results: 3 03/26/[address] [facility] [address] [place] [address] Dee Valenzuela MD Medication Question 03/26/2025 Travel 03/25/2025 Telephone [facility] [address] [place] [phone] Dee Valenzuela MD Durable Medical Equipment 03/24/2025 10:45 AM EDT Office Visit [facility] [address] [place] [address] Dee Valenzuela MD Primary hypertension (Primary Dx); Type 2 diabetes mellitus with other specified complication, with long-term current use of insulin ([facility]); Great toe pain, left; Closed nondisplaced fracture of phalanx of left great toe, unspecified phalanx, initial encounter 03/24/[address] [facility] [address] [place] [address] Dee Valenzuela MD Closed nondisplaced fracture of phalanx of left great toe, unspecified phalanx, initial encounter (Primary Dx) 03/24/[address] [facility] [address] [place] [address] Dee More MD 03/24/2025 Travel 03/21/[address] [facility] [address] [place] [address] Dee Valenzuela MD chart prep 03/09/[address] [facility] [address] [place] [address] Dee Valenzuela MD Vitamin deficiency 03/08/[address] [facility] [address] [place] [address] Dee Valenzuela MD Type 2 diabetes mellitus with hyperglycemia, without long-term current use of insulin ([facility]); Vitamin deficiency 02/27/2025 Refill [facility] [address] [place] [address] Dee Valenzuela MD Seborrheic dermatitis 02/17/2025 Refill [facility] [address] [place] [address] Dee Valenzuela MD Seborrheic dermatitis 02/17/2025 Refill [facility] [address] [place] [address] Terese Izaguirre MD Acute paronychia of finger of left hand; Cellulitis of left finger 02/13/2025 Refill [facility] [address] [place] [address] Laya Hernández MD Left elbow pain 02/12/2025 Travel 02/11/2025 Refill [facility] [address] [place] [address] Dee Valenzuela MD 02/05/[address] [facility] [address] [place] [address] Dee Valenzuela MD Primary hypertension 01/30/2025 Refill [facility] [address] [place] [address] Dee Valnezuela MD Type 2 diabetes mellitus with hyperglycemia, without long-term current use of insulin ([facility]) 01/28/2025 3:00 PM EDT Office Visit [facility] [address] [place] [phone] Terese Izaguirre MD Acute paronychia of finger of left hand (Primary Dx); Cellulitis of left finger; Dizziness; Type 2 diabetes mellitus with other specified complication, with long-term current use of insulin ([facility]) 01/28/2025 Telephone [facility] [address] [place] [address] Dee Valenzuela MD 01/24/[address] [facility] [address] [place] [address] Dee Valenzuela MD Prior Authorization from Last 3 Months Immunizations Immunization Administration [...] (269 lb) 04/24/2025 1:23 PM EDT Height 156.2 cm (5' 1.5 ) 04/14/2025 11:29 AM ED T Body Mass Index 50 04/14/2025 11:29 AM EDT Plan of Treatment Upcoming Encounters Date Type Department Care Team (Late st Contact Info) Description 04/30/2025 10:30 AM EDT Medication Management [facility] [address] [place] [address] Aggie Campuzano, PharmD [address] [place] [address] Health Maintenance Due Date Last Done Comments CT Colonography 1967 Colonoscopy 1967 Colorectal Cancer Screening 1967 Dental Prophylaxis 1967 Dental X-Ray: Bitewings 1967 FIT DNA/Cologuard 1967 FIT 1967 FOBT 1967 HIV Screening 1967 Sigmoidoscopy 1967 Disability Screening 1967 Eye Exam 10/26/1977 Diabetes: Urine Protein Screening 10/26/1986 Pap Smear 10/26/1988 Mammogram 04/06/2020 04/06/2018 Cervical Cancer Screening 07/05/2021 HPV/Cotest 07/05/2021 07/05/2016 Lipid Panel 01/10/2025 01/11/2024, 10/06/2022 COVID-19 Vaccine ( season) 2025 11/11/2020, 10/14/2020 Influenza Vaccine (#1) 2025 , 07/05/2023, 08/30/2022, Additional history exists Dental Oral Exam 05/24/2025 11/21/2024, 05/22/2008 Diabetes: Hemoglobin A1C 09/24/2025 025, 12/18/2024, 09/11/2024, Additional history exists SDOH Screening 12/11/2025 12/11/2024 Diabetes: Foot Exam 12/18/2025 12/18/2024 Alcohol/Substance Use Screening 04/14/2026 04/14/2025 Depression Screening 04/14/2026 04/14/2025, 04/14/20 25 Tobacco Screening 04/24/2026 04/24/2025 Dental X-Ray: Full Mouth 11/23/2027 11/21/2024 DTaP/Tdap/Td [...] Procedure Name Priority Date/Time Associated Diagnosis Comments POCT GLUCOSE Routine 04/14/2025 11:58 AM EDT Type 2 diabetes mellitus with other specified complication, with long-term current use of insulin ([facility]) AMB REFERRAL TO ORTHOPAEDIC SURGERY Routine 03/31/2025 [...] GLUCOSE Routine 01/28/2025 3:04 PM EDT Dizziness HEPATITIS PANEL, GENERAL Routine 01/15/2025 9:56 AM EDT PANORAMIC RADIOGRAPHIC IMAGE Routine 11/21/2024 9:00 AM EDT PERIODIC ORAL EVALUATION - ESTABLISHED PATIENT Routine 11/21/2024 9:00 AM EDT LIPID PANEL, STANDARD Routine 01/11/2024 9:59 AM EDT Type 2 diabetes mellitus without complication, without long-term current use of insulin (CMS/HCC) BI MAMMOGRAM SCREENING BILATERAL Routine 04/06/2018 12:49 PM EDT ZZZ HISTORICAL HPV MRNA E6/E7 Routine 07/05/2016 9:30 AM EST from Last 3 Months or Most Recently Relevant to Health Maintenance Results * POCT Glucose (04/14/2025 11:58 AM EDT) Only the most recent of3 resultswithin the time period is included. Glucose Blood, POC 165 60 - 200 mg/dL QC Media Lot # [id number] Lot# Expiration Date ,893,564 Comment:random Blood Capillary blood specimen / Unknown 04/14/2025 11:58 AM EDT us Dee Valenzuela MD POINT OF CARE TEST ENTER/ED IT ORDERABLES Final Result * Referral to Orthopaedic Surgery (03/31/2025) us Dee Valenzuela MD OUTPATIENT REFERRAL ORDERAB LES Final Result * XR Toes 2+ Left (03/24/2025 1:00 PM EDT) Anatomical Region Laterality Modality Lower Extremities, Toes Left Radiogra phic Imaging 03/24/2025 1:00 PM EDT Narrative 03/24/2025 1:17 PM EDT [address] [address] XRay Report Signed Patient: Lilliam Geller MR#: [id number] : 1965 Acct:[id number] Age/Sex: 59 / F ADM Date: 03/24/25 Loc: HO.[facility] Attending Dr: Dee Valenzuela MD Ordering Physician: Dee Valenzuela MD Date of Service: 03/24/25 Procedure(s): XR toe LT min 2V Accession Number(s): [id number] cc: Dee Valenzuela MD EXAMINATION: XR TOES [...] Carter Deng MD 03/24/2025 01:15 PM EDT Dictated By: Carter Deng MD Signed By: <Electronically signed by Carter Deng MD in OV> 03/24/25 1315 DD/ 1300 TD/TT: 03/24/25 1311 X Ray Control Equipment Repairer: Procedure Note Donotuseinterpreter, Image - 03/24/[address] [address] XRay Report Signed Patient: Lilliam GellerMR#: [id number] : 1965Acct:[id number] Age/Sex: 59 / FADM Date: 03/24/25 [facility] Dr: Dee Valenzuela MD Ordering Physician: Dee Valenzuela MD Date of Service: 03/24/25 Procedure(s): XR toe LT min 2V Accession Number(s): [id number] cc: Dee Valenzuela MD EXAMINATION: XR TOES [...] Carter Deng MD 03/24/2025 01:15 PM EDT Dictated By: Carter Deng MD Signed By: <Electronically signed by Carter Deng MD in OV> 03/24/255 DD/ 1300 TD/TT: 03/24/25 1311 X Ray Control Equipment Repairer: Dee Valenzuela MD IMG XR PROCEDURES Final Res ult * (ABNORMAL) Sed Rate by Modified Sherryren (03/24/2025 11:35 AM EDT) Erythrocyte Sedimentation Rate 31(H) 0 - 20 MM/HR [facility] Comment:Patients with polycy themia and many hemoglobin abnormalitiesmay have depressed sed rates whereas patients with anemiamay have elevated sed rates. Blood Venous blood specimen / Unknown 03/24/2025 11:35 AM EDT 03/24/2025 1:59 PM EDT us Dee Valenzuela MD LAB BLOOD ORDERABLES Final Result Performing Organization Address [facility] Co de Phone Number [facility] [address] [place] [phone] * (ABNORMAL) C-reactive Protein (03/24/2025 11:35 AM EDT) C Reactive Protein 2.53(H) < or = 0.50 mg/dL [facility] Blood Venous blood specimen / Unknown 03/24/2025 11:35 AM EDT 03/24/2025 1:59 PM EDT us Dee Valenzuela MD LAB BLOOD ORDERABLES Final Result Performing Organization Address [facility] Co de Phone Number [facility] [address] [place] [phone] * (ABNORMAL) Uric acid (03/24/2025 11:35 AM EDT) [facility] Signature Uric Acid 6.3(H) 2.4 - 5.7 mg/dL [facility] Blood Venous blood specimen / Unknown 03/24/2025 11:35 AM EDT 03/24/2025 1:59 PM EDT Dee Valenzuela MD LAB BLOOD ORDERABLES Final Result Performing Organization Address [facility] Co de Phone Number [facility] [address] [place] [phone] * Vitamin B12 (03/24/2025 11:35 AM EDT) Only the most recent of2 resultswithin the time period is included. Vitamin B12 358 200 - 900 pg/mL [facility] Comment:NORMAL 200-900 PG/ML INDETERMINATE 160-199 PG/ML DEFICIENT < 160 PG/ML 03/24/2025 11:3 5 AM EDT 03/24/2025 1:59 PM EDT Dee Valenzuela MD LAB BLOOD ORDERABLES Final Result Performing Organization Address [facility] Co de Phone Number [facility] [address] [place] [phone] * (ABNORMAL) POCT HGB A1C (03/24/2025 11:03 AM EDT) [facility] Hemoglobin A1C 6.5(A) 4.0 - 5.7 % QC Media Lot # [id number] Lot# Expiration Date Blood 03/24/2025 11:0 3 AM EDT Dee Valenzuela MD POINT OF CARE TEST ENTER/ED IT ORDERABLES Final Result * (ABNORMAL) Hepatitis Panel, General (01/15/2025 9:56 AM EDT) [facility] Hepatitis A IgM Nonreactive Nonreactive [facility] Comment:IgM antibodies to MARQUIS V not detected; does not exclude earlyacute or recovered HAV infection. ~Hepatitis B Surface Antibody NONREACTIVE Nonreactive [facility] Comment:Nonreactive: < 8.00 mIU/mL Hepatitis B Core Antibody Nonreactive Nonreactive [facility] Hepatitis C Antibody Reactive(A) Nonreactive [facility] Comment:Presumptive evidence of antibodies to HCV. Hepatitis B Surface Ag Negative Negative [facility] 01/15/2025 9:56 AM EDT 01/15/2025 9:56 AM EDT us Generic External Data Provider LAB BLOOD ORDERAB LES Final Result Performing Organization Address City/[facility]/ZIP Co de Phone Number [facility] [address] [place] [phone] * Lipid Panel, Standard (01/11/2024 9:59 AM EDT) Triglycerides 126 <150 mg/dL [facility] Comment:Desirable Triglyceri de: less than 150 mg/dLBorderline High Triglyceride 150-199 mg/dLHigh Triglyceride: 200-499 mg/dLVery High Triglyceride: greater than or equal to 5OO mg/dL Cholesterol 153 <200 mg/dL [facility] Comment:Desirable Cholestero l: less than 200 mg/dLBorderline High Cholesterol: 200-239 mg/dLHigh Cholesterol: greater than 239 mg/dL LDL Cholesterol Calculated 58 <100 mg/dL [facility] Comment:Desirable LDL: less than 100 mg/dLNear Optimal/Above Optimal LDL: 110- 129 mg/dLBorderline High LDL: 130-159 mg/dLHigh LDL: 160-189 mg/dLVery High LDL: greater than or equal to 190 mg/dL HDL Cholesterol 70 >40 mg/dL [facility] Comment:Desirable HDL: great er than 40 mg/dL Note: This HDL assay may give artificially low results in patients with liver disease. Blood Venous blood specimen / Unknown 01/11/2024 9:59 AM EDT 01/11/2024 2:02 PM EDT us Dee Valenzuela MD LAB BLOOD ORDERABLES Final Result [facility] [address] [place] [phone] [phone] * DIGITAL BILATERAL SCREEN 1 (04/06/2018 [...] HPV mRNA E6/E7 Not Detected NOT DETECTED [facility] Comment: This test was performed using the APTIMA(R) HPV Assay ([employer] This assay detects E6/E7 viral messenger RNA (mRNA) from 14 high-risk HPV types (16,18,31,33,35,39,45,51, 52,56,58,59,66,68). For additional information please refer to: http://education.[employer]/faq/MSD774h8 (This link is being provided for informational/ educational purposes only.) Test Performed by [employer] [facility], [address] [place] [id number] Curtis Subramanian M.D., Ph.D., Director of Laboratories , [facility] [id number] Please note: Effective 04/18/2016, HPV testing will be performed using [employer]'s APTIMA test which targets mRNA. Detecting mRNA instead of DNA, as in older methods, offers significant improvements in specificity. 07/05/2016 9:30 AM EST us Soila Sahu CNM HISTORICAL/NON ORDERABLE LABS Final Result [facility] [address] from Last 3 Months or Most Recently Relevant to Health Maintenance Insurance MEDICARE [facility] STANDARD [facility]AL-[facility] MEDICAID STAND ADULT Care Teams Liner Replacer Relationship Specialty Start Date End Date Dee Valenzuela MD [address] [place] [phone] PCP - General Internal Medicine 10/11/13 Aggie Campuzano, ClaraD [address] [place] [phone] Pharmacist Pharmacy 02/12/25
--- OUTSIDE RECORDS SUMMARY | 2025-04-24 15:51 | XMS_ITS | Encounter Summary ---
Author Organization [employer] Address [address] [facility] [address] [place] [address] Care Team Providers Care [facility] Former Name Role Phone Dee Valenzuela MD Primary Care Provider Aggie Campuzano PharmD Unavailable [phone] Reason for Visit * Reason Onset Date Comments Appointment Request 04/02/2024 Encounter Details Date Type Department Care Team (Late st Contact Info) Description 04/02/2024 Telephone [facility] [address] [place] [address] Dee Valenzuela MD [address] [place] [address] Appointment Request Social History Tobacco Use Types [...] Description 04/30/2025 10:30 AM EDT Medication Management [facility] [address] [place] [address] Aggie Campuzano PharmD [address] [place] [address] documented as of this encounter Visit Diagnoses Not on filedocumented in this encounter Additional Health Concerns Assessment Noted Time PHQ-9 Depression Total Score: 17 022 12:14 PM EST documented as of this encounter Care Teams Cone Former Relationship Specialty Start Date End Date Dee Valenzuela MD [address] [place] [address] PCP - General Internal Medicine 10/11/13 Aggie Campuzano PharmD [address] [place] [address] Pharmacist Pharmacy 02/12/25 documented as of this encounter
--- OUTSIDE RECORDS SUMMARY | 2025-04-24 15:52 | XMS_ITS | Encounter Summary ---
Author Organization [employer] Address [address] [facility] 7t [place] [address] Care Team Providers Care Lab Support Technician Name Role Phone Dee Valenzuela MD Primary Care Provider Aggie Campuzano PharmD Unavailable [phone] Encounter Details Date Type Department Care Team (Late st Contact Info) Description 01/12/2024 Orders Only [facility] CHC MED & PEDS [address] [place], [place] [phone] Dee Valenzuela MD [address] [place], [place] [phone] Iron deficiency (Primary Dx) Social History Tobacco Use Types Packs/Day Years Used Date Smoking Tobacco: Former Cigarettes Smokeless Tobacco: Never Alcohol Use Standard Drinks/Week Comments Never 0 (1 standard drink = 0.6 oz pur e alcohol) Depression Answer Date Recorded Patient Health Questionnaire-9 Score 17 07/20/2022 Housing Stability Answer Date Recorded What is your housing situation today? I have darrickjem ahuja 06/12/[address] you [...] Description 04/30/2025 10:30 AM EDT Medication Management [facility] MED & PEDS [address] [place] [address] Aggie Campuzano PharmD 230 [place] [address] Scheduled Orders Name Type Priority Associated Diagnoses [...] documented as of this encounter Care Teams Lab Support Technician Relationship Specialty Start Date End Date Dee Valenzuela MD 505 [place] [address] PCP - General Internal Medicine 10/11/13 Aggie Campuzano PharmD 230 [place] [address] Pharmacist Pharmacy 02/12/25 documented as of this encounter
--- OUTSIDE RECORDS SUMMARY | 2025-04-24 15:52 | XMS_ITS | Encounter Summary ---
Author Organization [employer] Address [address] [facility] [place] [address] Care Team Providers Care Rail Layer Name Role Phone Dee Valenzuela MD Primary Care Provider [phone] Aggie Campuzano PharmD Unavailable [phone] Reason for Referral * Consultation (Routine) - Closed Specialty Diagnoses / Procedures Referred By Lurdes freeman Referred To Contact Orthopaedic Surgery Diagnoses Closed nondisplaced fracture of phalanx of left great toe, unspecified phalanx, initial encounter Dee Valenzuela MD 505 [place] [address] Phone: tel: fax: [facility] [address] [place] [address] [place] [address] Phone: tel: fax: Referral ID Status Reason Start Date Expiration Date V isits Requested Visits Authorized [id number] Closed Specialty Services Required 03/24/2025 03/24/2026 1 1 Encounter Details Date Type Department Care Team ([facility] st Contact Info) Description 03/24/2025 Orders Only [facility] CHC MED & PEDS 505 [place], [place] [phone] Dee Valenzuela MD 505 [place], [place] [phone] Closed nondisplaced fracture of phalanx of left [...] Description 04/30/2025 10:30 AM EDT Medication Management [facility] CHC MED & PEDS 505 [place] [address] Aggie Campuzano, PharmD 230 [place], [place] [phone] documented as of this encounter Procedures Procedure [...] documented as of this encounter Care Teams Rail Layer Relationship Specialty Start Date End Date Dee Valenzuela MD [address] [place] [address] PCP - General Internal Medicine 10/11/13 Aggie Campuzano PharmD 230 [place] [address] Pharmacist Pharmacy 02/12/25 documented as of this encounter
--- OUTSIDE RECORDS SUMMARY | 2025-04-24 15:52 | XMS_ITS | Encounter Summary ---
Author Organization [employer] Address [address] [facility] 7t [place] [address] Care Team Providers Care Saw Tailer Name Role Phone Dee Valenzuela MD Primary Care Provider Aggie Campuzano PharmD Unavailable [phone] Encounter Details Date Type Department Care Team (Late st Contact Info) Description 11/29/2024 Orders Only [facility] CHC MED & PEDS 505 [place], [place] [phone] Dee Valenzuela MD 505 [place], [place] [phone] Type 2 diabetes mellitus without complication, without long-term current use of insulin ([facility]) Social History Tobacco Use Types Packs/Day Years [...] 10:30 AM EDT Medication Management [facility] MED & PEDS 505 [place] [address] Aggie Campuzano PharmD 230 [place] [address] documented as of this encounter Visit Diagnoses Diagnosis Type 2 diabetes mellitus without complication, without long-term current use of insulin ([facility]) documented in this encounter Additional Health Concerns Assessment Noted Time PHQ-9 Depression Total Score: 17 022 12:14 PM EST documented as of this encounter Care Teams Saw Tailer Relationship Specialty Start Date End Date Dee Valenzuela MD 505 [place] [address] PCP - General Internal Medicine 10/11/13 Aggie Campuzano PharmD 230 [place] [address] Pharmacist Pharmacy 02/12/25 documented as of this encounter
--- OUTSIDE RECORDS SUMMARY | 2025-04-24 15:52 | XMS_ITS | Encounter Summary ---
Author Organization [employer] Address [address] [facility] 7t [place] [address] Care Team Providers Care Boardinghouse Keeper Name Role Phone Dee Valenzuela MD Primary Care Provider [phone] Aggie Campuzano PharmD Unavailable [phone] Encounter Details Date Type Department Care Team (Latest Contact Info) Description 04/24/2025 Travel Social History Tobacco Use Types Packs/Day Years [...] AM EDT Medication Management [facility] MED & PEDS 505 [place] [address] Aggie Campuzano PharmDevaughn 230 [place] [address] documented as of this encounter Visit Diagnoses Not on filedocumented in this encounter Additional Health Concerns Assessment Noted Time PHQ-9 Depression Total Score: 0 04/14/20 3:23 PM EDT documented as of this encounter Care Teams Boardinghouse Keeper Relationship Specialty Start Date End Date Dee Valenzuela MD 505 [place] [address] PCP - General Internal Medicine 10/11/13 Aggie Campuzano, PharmD [address] [place] [address] Pharmacist Pharmacy 02/12/25 documented as of this encounter
--- OUTSIDE RECORDS SUMMARY | 2025-04-24 15:52 | XMS_ITS | Encounter Summary ---
Author Organization [employer] Address [address] [facility] 7t [place] [address] Care Team Providers Care Cap Cutter Name Role Phone Dee Valenzuela MD Primary Care Provider Aggie Campuzano PharmD Unavailable [phone] Encounter Details Date Type Department Care Team (Late st Contact Info) Description 04/14/2025 Orders Only [facility] CHC MED & PEDS 505 [place], [place] [phone] Dee Valenzuela MD 505 [place], [place] [phone] Social History Tobacco Use Types Packs/Day Years [...] AM EDT documented as of this encounter Functional Status * Over the past 2 weeks, how often have you been bothered by any of the following problems? Question Answer Date of Assessment Author Patient Health Questionnaire-2 Score 0 03/2025 3:23 PM EDT Fidelina Armstrong [place] * Little interest or pleasure in doing things Answer Date of Assessment Author Not at all 04/14/2025 3:23 PM EDT Sang Armstrong [place] * Feeling down, depressed, or hopeless Answer Date of Assessment Author Not at all 04/14/2025 3:23 PM EDT Sang Armstrong [place] * Trouble falling or staying asleep, or sleeping too much Answer Date of Assessment Author Not at all 04/14/2025 3:23 PM EDT Sang Armstrong [place] * Feeling tired or having little energy Answer Date of Assessment Author Not at all 04/14/2025 3:23 PM EDT Sang Armstrong [place] * Poor appetite or overeating Answer Date of Assessment Author Not at all 04/14/2025 3:23 PM EDT Sang Armstrong MA * Feeling bad about yourself - or that you are a failure or have let yourself or your family down Answer Date of Assessment Author Not at all 04/14/2025 3:23 PM EDT Sang Armstrong MA * Trouble concentrating on things, such as reading the newspaper or watching television Answer Date of Assessment Author Not at all 04/14/2025 3:23 PM EDT Sang Armstrong MA * Moving or speaking so slowly that other people could have noticed? Or the opposite - being so fidgety or restless that you have been moving around a lot more than usual. Answer Date of Assessment Author Not at all 04/14/2025 3:23 PM EDT Sang Armstrong MA * Thoughts that you would be better off or hurting yourself in some way Answer Date of Assessment Author Not at all 04/14/2025 3:23 PM EDT Sang Armstrong MA * Patient Health Questionnaire-9 Score Answer Date of Assessment Author 0 04/14/2025 3:23 PM EDT Sang Armstrong MA documented as of this encounter Plan of Treatment Upcoming Encounters Date Type Department Care Team (Late st Contact Info) Description 04/30/2025 10:30 AM EDT Medication Management [facility] MED & PEDS 505 [place] [address] Aggie Campuzano PharmD 230 [place] [address] documented as of this encounter Visit Diagnoses Not on filedocumented in this encounter Additional Health Concerns Assessment Noted Time PHQ-9 Depression Total Score: 0 04/14/20 3:23 PM EDT documented as of this encounter Care Teams Cap Cutter Relationship Specialty Start Date End Date Dee Valenzuela MD 505 [place] [address] PCP - General Internal Medicine 10/11/13 Aggie Campuzano PharmD 230 [place] [address] Pharmacist Pharmacy 02/12/25 documented as of this encounter
--- OUTSIDE RECORDS SUMMARY | 2025-04-24 15:52 | XMS_ITS | Encounter Summary ---
Author Organization [employer] Address [address] [facility] 7 [place] [address] Care Team Providers Care Sprayer Hand Name Role Phone Dee Valenzuela MD Primary Care Provider Aggie Campuzano PharmD Unavailable [phone] Reason for Visit * Reason Onset Date Comments Med Refill 04/08/2025 Encounter Details Date Type Department Care Team (Late st Contact Info) Description 04/08/2025 Refill [facility] MEDICINE [address] [place] [address] Dee Valenzuela MD 505 [place] [address] Closed nondisplaced fracture of phalanx of left [...] encounter Miscellaneous Notes * Telephone Encounter - Forest Olivas - 04/08/2025 10:26 AM EDT TC from pt requesting medication refill. Medications needing refill: traMADol (Ultram) 50 MG tablet To be sent to: [facility] - [place], [place] - [address] [facility] documented in this encounter Plan of Treatment Upcoming Encounters Date Type Department Care Team (Late st Contact Info) Description 04/30/2025 10:30 AM EDT Medication Management [facility] MED & PEDS 505 [place] [address] Aggie Campuzano, PharmD [address] [facility] [place] [address] documented as of this encounter Visit Diagnoses Diagnosis Closed nondisplaced fracture of phalanx of left great toe, unspecified phalanx, initial encounter- Primary documented in this encounter Additional Health Concerns Assessment Noted Time PHQ-9 Depression Total Score: 17 07/20/ 022 12:14 PM EST documented as of this encounter Care Teams Sprayer Hand Relationship Specialty Start Date End Date Dee Valenzuela MD 505 [place] [address] PCP - General Internal Medicine 10/11/13 Aggie Campuzano PharmD 230 [place] [address] Pharmacist Pharmacy 02/12/25 documented as of this encounter
--- OUTSIDE RECORDS SUMMARY | 2025-04-24 15:52 | XMS_ITS | Encounter Summary ---
Author Organization [facility] Address [address] [place] [address] Phone Care Team Providers Care Tool Dispatcher Name Role Phone Unavailable Primary Care Provider Unavailabl e Encounter Details Date Type Department Care Team (Late st Contact Info) Description 04/26/2018 Ancillary Orders [facility] [address] [place] [address] 3rd Floor, [address] [place] [address] Saritha Dumont PA [address] [place] [address] [place] [address] Social History Tobacco Use Types Packs/Day Years [...] It is not the complete legal health record.[facility]
--- OUTSIDE RECORDS SUMMARY | 2025-04-24 15:52 | XMS_ITS | Encounter Summary ---
Author Organization [employer] Address [address] [place] [address] [address] [address] Care Team Providers Care Brick Baker Name Role Phone Dee Valenzuela MD Primary Care Provider Aggie Campuzano PharmD Unavailable [phone] Reason for Referral * Consultation (Routine) - Authorized Specialty Diagnoses / Procedures Referred By Contleland t Referred To Contact Pharmacy Diagnoses Type 2 diabetes mellitus without complication, without long-term current use of insulin (CMS/HCC) Dee Valenzuela MD [address] [place] [address] Phone: tel: fax: Referral ID Status Reason Start Date Expiration Date Visits Requested Visits Authorized [id number] Authorized Consult and Treat 01/15/2025 01/15/2026 6 6 Encounter Details Date Type Department Care Team (Late st Contact Info) Description 01/15/2025 Orders Only [facility] CHC MED & PEDS [address] [place] [address] Dee Valenzuela MD 505 [place] [address] Type 2 diabetes mellitus without complication, without [...] Description 04/30/2025 10:30 AM EDT Medication Management [facility] MED & PEDS 505 [place] [address] Aggie Campuzano, PharmD 230 [place] [address] Scheduled Referrals Name Type Priority Associated Diagnoses Orde r Schedule Referral to Pharmacy CDTM Outpatient Referral Routine Type 2 diabetes mellitus without complication, without long-term current use of insulin ([facility]) Ordered: 01/15/2025 documented as of this encounter Procedures Procedure Name Priority Date/Time Associated Diagnosis Comments T-SPOT(R).TB Routine 01/15/2025 9:56 AM EDT Type 2 diabetes mellitus without complication, without long-term current use of insulin ([facility]) documented in this encounter Results * T-SPOT??.TB (01/15/2025 9:56 AM EDT) T Spot TB Negative Negative [facility] Comment:A negative test resu lt does [...] as aquantitative test. TS PANEL A 0 [facility] TS PANEL B 0 [facility] Negative Control Passed [facility] Positive Control Passed [facility] Comment:For additional infor sterling, please refer tohttp://education.[email or web address]/faq/QPR408(This link is being provided for informational/educational purposes only.)THIS TEST WAS PERFORMED AT:[id number] [place] [address]RJWBWACLADAN BARTLETT MD,PHD 01/15/2025 9:56 AM EDT 01/15/2025 9:56 AM EDT us Generic External Data Provider LAB BLOOD ORDERAB LES Final Result [facility] [address] [place] [address] [phone] documented in this encounter Visit Diagnoses Diagnosis Type 2 diabetes mellitus without complication, without long-term current use of insulin ([facility])- Primary documented in this encounter Additional Health Concerns Assessment Noted Time PHQ-9 Depression Total Score: 17 022 12:14 PM EST documented as of this encounter Care Teams Brick Baker Relationship Specialty Start Date End Date Dee Valenzuela MD [address] [place] [address] PCP - General Internal Medicine 10/11/13 Aggie Campuzano PharmD [address] [place] [address] Pharmacist Pharmacy 02/12/25 documented as of this encounter
--- OUTSIDE RECORDS SUMMARY | 2025-04-24 15:52 | XMS_ITS | Encounter Summary ---
Author Organization [employer] Address [address] [facility] 7t [place] [address] Care Team Providers Care Bark Skinner Name Role Phone Dee Valenzuela MD Primary Care Provider [phone] Aggie Campuzano PharmD Unavailable [phone] Reason for Visit * Reason Onset Date Comments returning call 07/20/2022 Encounter Details Date Type Department Care Team ([facility] st Contact Info) Description 07/20/2022 Telephone [facility] CHC MED & PEDS [address] [place], [place] [phone] Dee Valenzuela MD 505 [place], [place] [phone] returning call Social History Tobacco Use Types [...] than half the days 07/20/2022 12:14 PM Korteny Kamara [place] Feeling bad about yourself - [...] Health Questionnaire-9 Score 17 07/20/2022 12:14 PM EST Kortney Olivas [place] documented as of this encounter Miscellaneous Notes * Telephone Encounter - Kamila Jain - 07/20/2022 10:52 AM EST Tc from pt returning call . documented in this encounter Plan of Treatment Upcoming Encounters Date Type Department Care Team (Late st Contact Info) Description 04/30/2025 10:30 AM EDT Medication Management [facility] MED & PEDS [address] [place] [address] Aggie Campuzano PharmD [address] [place] [address] documented as of this encounter Visit Diagnoses Not on filedocumented in this encounter Additional Health Concerns Assessment Noted Time PHQ-9 Depression Total Score: 17 07/20/ 022 12:14 PM EST documented as of this encounter Care Teams Bark Skinner Relationship Specialty Start Date End Date Dee Valenzuela MD 505 [place] [address] PCP - General Internal Medicine 10/11/13 Aggie Campuzano, ClaraD 230 [place] [address] Pharmacist Pharmacy 02/12/25 documented as of this encounter
--- OUTSIDE RECORDS SUMMARY | 2025-04-24 15:52 | XMS_ITS | Encounter Summary ---
Author Organization [employer] Address [address] [facility] 7t [place] [address] Care Team Providers Care Anatomy Professor Name Role Phone Dee Valenzuela MD Primary Care Provider Aggie Campuzano PharmD Unavailable [phone] Reason for Visit * Reason Comments Med Refill Encounter Details Date Type Department Care Team (Late st Contact Info) Description 02/17/2025 Refill [facility] MEDICINE [address] [place] [address] Dee Valenzuela MD 505 [place] [address] Seborrheic dermatitis Social History Tobacco Use Types [...] Description 04/30/2025 10:30 AM EDT Medication Management [facility] CHC MED & PEDS [address] [place] [address] Aggie Campuzano PharmD 230 [place] [address] documented as of this encounter Visit Diagnoses Diagnosis Seborrheic dermatitis Unspecified seborrheic dermatitis documented in this encounter Additional Health Concerns Assessment Noted Time PHQ-9 Depression Total Score: 17 022 12:14 PM EST documented as of this encounter Care Teams Anatomy Professor Relationship Specialty Start Date End Date Dee Valenzuela MD 505 [place] [address] PCP - General Internal Medicine 10/11/13 Aggie Campuzano PharmD [address] [place] [address] Pharmacist Pharmacy 02/12/25 documented as of this encounter
--- OUTSIDE RECORDS SUMMARY | 2025-04-24 15:52 | XMS_ITS | Encounter Summary ---
Author Organization [facility] Address [address] [place] [address] Phone Care Team Providers Care Data Control Assistant Name Role Phone Unavailable Primary Care Provider Unavailabl e Encounter Details Date Type Department Care Team (Latest Contact Info) Description 04/26/2018 Ancillary Orders [facility] [address] [place] [address] [place] [address] Saritha Dumont PA [address] [place] [address] Syncope and collapse Social History Tobacco Use [...] It is not the complete legal health record.[facility]
--- OUTSIDE RECORDS SUMMARY | 2025-04-24 15:52 | XMS_ITS | Encounter Summary ---
Author Organization [employer] Address [address] [facility] 7 [place] [address] Care Team Providers Care Storyboard Artist Name Role Phone Dee Valenzuela MD Primary Care Provider [phone] Aggie Campuzano PharmD Unavailable [phone] Reason for Visit * Reason Onset Date Comments Med Refill 04/24/2025 Encounter Details Date Type Department Care Team (Late st Contact Info) Description 04/24/2025 Telephone [facility] CHC MED & PEDS [address] [place], [place] [phone] Dee Valenzuela MD 505 [place], [place] [phone] Med Refill Social History Tobacco Use Types Packs/Day Years [...] encounter Miscellaneous Notes * Telephone Encounter - Amos Whiteside - 04/24/2025 3:39 PM EDT TC from pt requesting medication refill. Medications needing refill : lidocaine (Xylocaine) 5 % ointment To be sent to: [facility] - [place], [place] - [address] [facility] documented in this encounter Plan of Treatment Upcoming Encounters Date Type Department Care Team (Late st Contact Info) Description 04/30/2025 10:30 AM EDT Medication Management [facility] MED & PEDS [address] [place] [address] Aggie Campuzano, PharmD [address] [facility] [place] [address] documented as of this encounter Visit Diagnoses Not on filedocumented in this encounter Additional Health Concerns Assessment Noted Time PHQ-9 Depression Total Score: 0 04/14/20 25 3:23 PM EDT documented as of this encounter Care Teams Storyboard Artist Relationship Specialty Start Date End Date Dee Valenzuela MD 505 [place] [address] PCP - General Internal Medicine 10/11/13 Aggie Campuzano, Dexter [address] [place] [address] Pharmacist Pharmacy 02/12/25 documented as of this encounter
--- OUTSIDE RECORDS SUMMARY | 2025-04-24 15:52 | XMS_ITS | Encounter Summary ---
Author Organization [employer] Address [address] [facility] 7 [place] [address] Care Team Providers Care Home Theater Specialist Name Role Phone Dee Valenzuela MD Primary Care Provider Aggie Campuzano PharmD Unavailable [phone] Reason for Visit * Reason Onset Date Comments FYI 10/14/2024 Encounter Details Date Type Department Care Team ([facility] st Contact Info) Description 10/14/2024 Telephone [facility] CHC MED & PEDS 505 [place], [place] [phone] Dee Valenzuela MD [address] [place], [place] [phone] Social History Tobacco Use Types Packs/Day Years [...] - 10/15/2024 12:18 PM EDT Tc from [facility] with [facility] returning call to inform was unable to meet/reach pt today and will be trying again 10/16/24. * Telephone Encounter - Luisana Mcdaniel RN - 10/14/2024 1:28 PM EDT Noted * Telephone Encounter - Kamila Jain - 10/14/2024 1:17 PM EDT Tc from [facility] with [facility] calling to inform pt will be starting home care services tomorrow 10/15/24. documented in this encounter Plan of Treatment Upcoming Encounters Date Type Department Care Team (Late st Contact Info) Description 04/30/2025 10:30 AM EDT Medication Management [facility] MED & PEDS [address] [place] [address] Aggie Campuzano, Dexter [address] [place] [address] documented as of this encounter Visit Diagnoses Not on filedocumented in this encounter Additional Health Concerns Assessment Noted Time PHQ-9 Depression Total Score: 17 07/20/ 022 12:14 PM EST documented as of this encounter Care Teams Home Theater Specialist Relationship Specialty Start Date End Date Dee Valenzuela MD [address] [place] [address] PCP - General Internal Medicine 10/11/13 Aggie Campuzano PharmD [address] [place] [address] Pharmacist Pharmacy 02/12/25 documented as of this encounter
--- OUTSIDE RECORDS SUMMARY | 2025-04-24 15:52 | XMS_ITS | Clinical Summary ---
Author Organization [facility] Address [address] [place] [address] Care Team Providers Care Audit Machine Operator Name Role Phone Unavailable Primary Care [...] Vaccine (1 of 2) 10/26/2017 COVID-19 Vaccine (1 - season) 2025
--- OUTSIDE RECORDS SUMMARY | 2025-04-24 15:52 | XMS_ITS | Encounter Summary ---
Author Organization [employer] Address [address] [facility] 7[address] [place] [address] Care Team Providers Care Landscape Manager Name Role Phone Dee Valenzuela MD Primary Care Provider [phone] Aggie Campuzano PharmD Unavailable [phone] Reason for Visit * Reason Comments Med Refill Encounter Details Date Type Department Care Team (Late st Contact Info) Description 02/17/2025 Refill [facility] [address] [place] [address] Terese Izaguirre MD [address] [place] [address] Acute paronychia of finger of left hand; [...] [facility] [address] [place] [address] Aggie Campuzano PharmD [address] [place] [address] documented as of this encounter Visit Diagnoses Diagnosis Acute paronychia of finger of left hand Cellulitis of left finger documented in this encounter Additional Health Concerns Assessment Noted Time PHQ-9 Depression Total Score: 17 022 12:14 PM EST documented as of this encounter Care Teams Landscape Manager Relationship Specialty Start Date End Date Dee Valenzuela MD [address] [place] [address] PCP - General Internal Medicine 10/11/13 Aggie Campuzano, ClaraD [address] [place] [address] Pharmacist Pharmacy 02/12/25 documented as of this encounter
== END 2025-04-24 13:50 | disposition home or self-care (01) ==
LOC: HO.HHCX 13:49
PROVIDERS: Visit Provider Family Medicine
DX: M25.512 Pain in left shoulder (principal); M54.12 Radiculopathy, cervical region
CPT/HCPCS: 72040; 73030

== ENCOUNTER → 2025-04-24 13:50 | Outpatient (BNV) | payer MEDICARE, MEDICAID, SELFPAY | PROVIDERS: Visit Provider Radiology Diagnostic Radiology | DX: M47.812 Spondylosis without myelopathy or radiculopathy, cervical region (principal); M25.512 Pain in left shoulder | CPT/HCPCS: 72040; 73030 ==

== ENCOUNTER 2025-04-26 19:02 | Emergency (ER) | payer MEDICARE, MEDICAID, SELFPAY ==
--- OUTSIDE RECORDS SUMMARY | 2025-04-24 13:20 | XMS_ITS | Encounter Summary ---
Author Organization [employer] Address [address] [place] [address] 7 [place] [address] Care Team Providers Care Braid Pattern Setter Name Role Phone Dee Valenzuela MD Primary Care Provider Aggie Campuzano PharmD Unavailable [phone] Reason for Referral * Consultation (Routine) - Authorized Specialty Diagnoses / Procedures Referred By Lurdes freeman Referred To Contact Orthopaedic Surgery Diagnoses Acute pain of left shoulder Keya Vang MD [address] [place] [address] Phone: tel: fax: [facility] Orthopedics [address] [place] [address] Phone: tel: Referral ID Status Reason Start Date Expiration Date Visits Requested Visits Authorized [id number] Authorized Specialty Services Required 04/24/2025 04/24/2026 1 1 * Medications - Closed Specialty Diagnoses / Procedures Referred By Lurdes freeman Referred To Contact Diagnoses Acute pain of left shoulder Keya Vang MD [address] [place] [address] Phone: tel: fax: Referral ID Status Reason Start Date Expiration Date Visits Re quested Visits Authorized [id number] Closed 1 1 Reason for Visit * Reason Comments Shoulder Pain Encounter Details Date Type Department Care Team (Latest Contact Info) Description 04/24/2025 1:20 PM EDT Office Visit [facility] [address] [place], [place] [phone] Keya Vang MD [address] [place], [place] [phone] Acute pain of left shoulder (Primary Dx); [...] in this encounter Progress Notes * Lobo Sydni - 04/24/2025 1:40 PM EDT Subjective Patient [...] Center 04/30/2025 10:30 AM Aggie Campuzano PharmD [facility] Lobo Talavera, am serving as a scribe to document services personally performed by Dr. Salamanca, based on the patient's response to questions by provider and providers statements to me. documented in this encounter Plan of Treatment Upcoming Encounters Date Type Department Care Team (Late st Contact Info) Description 04/30/2025 10:30 AM EDT Medication Management [facility] MED & PEDS [address] [place] [address] Aggie Campuzano PharmD [address] [place] [address] Scheduled Referrals Name Type Priority Associated Diagnoses Order Schedule Referral to Orthopaedic Surgery Outpatient Referral Routine Acute pain of left shoulder Expected: 04/24/2025 (Approximate), Expires: 04/24/2026 documented as of this encounter Procedures Procedure Name Priority Date/Time Associated Diagnosis Comments XR CERVICAL SPINE 3V Routine 04/24/2025 2:25 PM EDT Acute pain of left shoulder Left cervical radiculopathy XR SHOULDER 2+ VIEWS LEFT Routine 04/24/2025 2:10 PM EDT Acute pain of left shoulder documented in this encounter Results * XR CERVICAL SPINE 3V (04/24/2025 2:25 PM EDT) Anatomical Region Laterality Modality Abdomen Radiographic Agatha ging 04/24/2025 2:25 PM EDT Narrative 04/24/2025 2:47 PM EDT [address] [address] XRay Report Signed Patient: Lilliam Geller MR#: [id number] : 1965 Acct:[id number] Age/Sex: 59 / F ADM Date: 04/24/25 Loc: HO.HHCX Attending Dr: Keya Vang MD Ordering Physician: Keya Vang MD Date of Service: 04/24/25 Procedure(s): XR cervical spine 3V Accession Number(s): [id number] cc: Keya Vang MD Reason for Exam: symptoms of let radiculopathy EXAMINATION: XR CERVICAL SPINE CLINICAL INFORMATION: symptoms of let radiculopathy COMPARISON: January 12, 2022 TECHNIQUE: AP lateral and atlantoodontoid views. FINDINGS: Craniocervical junction is intact. Multilevel marginal osteophyte formation and endplate sclerosis decreased intervertebral disc height and likely subacute cortical cyst at C3-4, C4-5 and C5-6 level. No acute cortical disruption. Normal alignment. No lytic or blastic lesions. Probable soft tissue calcifications related to the carotic arteries. Poor dentition. XR/XR cervical spine 3V IMPRESSION: Multilevel spondylosis C3 C6 pronounced at C5-6. Slight worsening since prior exam. Electronically signed by: Skyler Camara MD 04/24/2025 02:44 PM EDT Dictated By: Skyler Clemons MD Signed By: <Electronically signed by Skyler Sandoval MD in OV> 04/24/25 1444 DD/ 24 TD/TT: 04/24/251428 Metal Riveting Machine Operator: Procedure Note Jacinda, Image - 04/24/[address] [address] XRay Report Signed Patient: Lilliam GellerMR#: [id number] : 1965Acct:[id number] Age/Sex: 59 / FADM Date: 04/24/25 Loc: HO.HHCX Attending Dr: Keya Vang MD Ordering Physician: Keya Vang MD Date of Service: 04/24/25 Procedure(s): XR cervical spine 3V Accession Number(s): [id number] cc: Keya Vang MD Reason for Exam: symptoms of let radiculopathy EXAMINATION: XR CERVICAL SPINE CLINICAL INFORMATION: symptoms of let radiculopathy COMPARISON: January 12, 2022 TECHNIQUE: AP lateral and atlantoodontoid views. FINDINGS: Craniocervical junction is intact. Multilevel marginal osteophyte formation and endplate sclerosis decreased intervertebral disc height and likely subacute cortical cyst at C3-4, C4-5 and C5-6 level. No acute cortical disruption. Normal alignment. No lytic or blastic lesions. Probable soft tissue calcifications related to the carotic arteries. Poor dentition. XR/XR cervical spine 3V IMPRESSION: Multilevel spondylosis C3 C6 pronounced at C5-6. Slight worsening since prior exam. Electronically signed by: Skyler Camara MD 04/24/2025 02:44 PM EDT RP Dictated By: Skyler Clemons MD Signed By: <Electronically signed by Skyler Sandoval MDin OV> 04/24/25 1444 DD/ TD/TT: 04/24/251428 Metal Riveting Machine Operator: Keya Vang MD IMG XR PROCEDURES Final Re sult * XR Shoulder 2+ Views Left (04/24/2025 2:10 PM EDT) Anatomical Region Laterality Modality Upper Extremities, Shoulder Left Radi ographic Imaging 04/24/2025 2:10 PM EDT Narrative 04/24/2025 2:48 PM EDT [facility] [address] [place] [address] XRay Report Signed Patient: Lilliam Geller MR#: [id number] : 1965 Acct:[id number] Age/Sex: 59 / F ADM Date: 04/24/25 Loc: HO.HHCX Attending Dr: Keya Vang MD Ordering Physician: Keya Vang MD Date of Service: 04/24/25 Procedure(s): XR shoulder LT min 2V Accession Number(s): [id number] cc: Keya Vang MD Reason for Exam: left shoulder pain with radicular symptoms EXAMINATION: XR SHOULDER, LEFT CLINICAL INFORMATION: left shoulder pain with radicular symptoms COMPARISON: Correlated to chest x-ray dated August 27, 2024. TECHNIQUE: AP internal and external rotation and axillary views of the left shoulder. FINDINGS: No acute cortical disruption or malalignment. No lytic or blastic lesions. Mild sclerosis along the articular surface of the acromioclavicular joint. No soft tissue calcifications. XR/XR shoulder LT min 2V IMPRESSION: Mild osteoarthritis/osteoarthrosis, left acromioclavicular joint. Electronically signed by: Skyler Camara MD 04/24/2025 02:45 PM EDT Dictated By: Skyler Clemons MD Signed By: <Electronically signed by Skyler Sandoval MD in OV> 04/24/25 1445 DD/ 1410 TD/TT: 04/24/25 1429 Metal Riveting Machine Operator: Procedure Note Donotuseinterpreter, Image - 04/24/[address] [address] XRay Report Signed Patient: Lilliam GellerMR#: [id number] : 1965Acct:[id number] Age/Sex: 59 / FADM Date: 04/24/25 Loc: HO.HHCX Attending Dr: Keya Vnag MD Ordering Physician: Keya Vang MD Date of Service: 04/24/25 Procedure(s): XR shoulder LT min 2V Accession Number(s): [id number] cc: Keya Vang MD Reason for Exam: left shoulder pain with radicular symptoms EXAMINATION: XR SHOULDER, LEFT CLINICAL INFORMATION: left shoulder pain with radicular symptoms COMPARISON: Correlated to chest x-ray dated August 27, 2024. TECHNIQUE: AP internal and external rotation and axillary views of the left shoulder. FINDINGS: No acute cortical disruption or malalignment. No lytic or blastic lesions. Mild sclerosis along the articular surface of the acromioclavicular joint. No soft tissue calcifications. XR/XR shoulder LT min 2V IMPRESSION: Mild osteoarthritis/osteoarthrosis, left acromioclavicular joint. Electronically signed by: Skyler Camara MD 04/24/2025 02:45 PM EDT RP Dictated By: Skyler Clemons MD Signed By: <Electronically signed by Skyler Sandoval MDin OV> 04/24/25 1445 DD/ 1410 TD/TT: 04/24/25 1429 Metal Riveting Machine Operator: Keya Vang MD IMG XR PROCEDURES Final Re sult documented in this encounter Visit Diagnoses Diagnosis Acute pain of left shoulder- Primary Left cervical radiculopathy documented in this encounter Additional Health Concerns Assessment Noted Time PHQ-9 Depression Total Score: 0 04/14/20 3:23 PM EDT documented as of this encounter Care Teams Braid Pattern Setter Relationship Specialty Start Date End Date Dee Valenzuela MD [address] [place] [address] PCP - General Internal Medicine 10/11/13 Aggie Campuzano PharmD [address] [place] [address] Pharmacist Pharmacy 02/12/25 documented as of this encounter
--- NOTE | ~2025-04-26 | XR_ITS ---
CLINICAL HISTORY: CP 2 view chest x-ray Comparison: 08/27/2024 Findings: Lungs are clear without acute infiltrates. Stable chronic pulmonary artery prominence. No pneumothorax. Heart size enlarged. No acute bony abnormalities. Impression: No acute processes This document has been electronically signed by: Mitchell Hitchcock MD on 04/26/2025 20:57:31
--- NOTE | ~2025-04-26 | XR_ITS ---
CLINICAL HISTORY: pain Left shoulder four views Comparison: 04/24/2025 Findings: No acute fracture or dislocation identified. AC joint degenerative change. No radiopaque foreign body. Impression: No acute bony abnormality This document has been electronically signed by: Mitchell Hitchcock MD on 04/26/2025 20:56:37
[2025-04-26 19:11] VITALS: BP 181/87; PULSE 93; RESP 20; TEMP 36.7; O2SAT 92; BMI 47.5
--- NOTE | 2025-04-26 19:11 | ED.GENADULT ---
HPI - General Adult General Chief complaint: Chest Pain Stated complaint: left shoulder and back pain Time Seen by Provider: 04/26/25 20:43 History of Present Illness HPI narrative: Patient is a 59-year-old female presents today with having left shoulder pain. The pain is worse with movement. He has been ongoing for 4 days. His in the deltoid area going to the scapular area. There is no chest pain there is no shortness of breath there is no diaphoresis. Patient denies any new leg swelling. Denies any pain worsened with deep breath. Pain is worse with movement of the shoulder on the left side. There is no pain on movement of the shoulder on the right. Pain is sharp. Not associated with any fever chills coughing congestion upper respiratory symptoms. Never had a blood clot. Positive history of COPD chronically is on 2 L of oxygen history of diabetes, hypertension, high cholesterol. Denies any history of smoking. No history of MD. no new leg swelling. Patient is larger in size. She is 121 kilos at 5 ft 3 in patient's BMI is 47.5. Related Data Home Medications ?Medication ?Instructions ?Recorded ?Confirmed albuterol sulfate 2.5 mg/3 mL 1 amp inhalation Q6H PRN wheezing 08/12/21 08/27/24 (0.083 %) solution for nebulization aspirin 81 mg tablet,delayed 81 mg PO BEDTIME 08/12/21 08/27/24 release ferrous sulfate 325 mg (65 mg 1 tab PO BID 08/12/21 08/27/24 iron) tablet (FeroSul) multivitamin 1 tab PO BEDTIME 08/12/21 08/27/24 blood sugar diagnostic (FreeStyle #10 ea 06/10/22 07/18/24 Lite Strips) lancets 33 gauge (TRUEplus Lancets) #100 ea 06/10/22 07/18/24 albuterol sulfate 90 mcg/actuation 2 puff inhalation Q6H wheezing 08/27/24 08/27/24 aerosol inhaler (Ventolin HFA) bupropion HCl 300 mg 24 hr tablet, 300 mg PO DAILY 08/27/24 08/27/24 extended release diltiazem HCl 180 mg 180 mg PO DAILY 08/27/24 08/27/24 capsule,extended release 24 hr folic acid 1 mg tablet 1 mg PO DAILY 08/27/24 08/27/24 hydrochlorothiazide 12.5 mg tablet 12.5 mg PO Q OTHER DAY 08/27/24 08/27/24 hydrocortisone 1 % topical ointment 1 appl topical BID 08/27/24 08/27/24 hydrocortisone 2.5 % topical cream 1 appl LA BID 08/27/24 08/27/24 with perineal applicator ketoconazole 2 % shampoo 1 appl topical MOWE 08/27/24 08/27/24 lamotrigine 200 mg tablet 200 mg PO BEDTIME 08/27/24 08/27/24 lorazepam 0.5 mg tablet 0.5 mg PO BID PRN anxiety 08/27/24 08/27/24 metformin 500 mg tablet,extended 1,000 mg PO BID 08/27/24 08/27/24 release 24 hr mirtazapine 30 mg tablet 30 mg PO BEDTIME 08/27/24 08/27/24 mometasone-formoterol HFA 200 2 puff inhalation BID 08/27/24 08/27/24 mcg-5 mcg/actuation aerosol inhaler (Dulera) montelukast 10 mg tablet 10 mg PO BEDTIME 08/27/24 08/27/24 sertraline 100 mg tablet 200 mg PO DAILY 08/27/24 08/27/24 simvastatin 40 mg tablet 40 mg PO BEDTIME 08/27/24 08/27/24 tiotropium bromide 18 mcg capsule 1 cap inhalation DAILY 08/27/24 08/27/24 with inhalation device (Spiriva with HandiHaler) benralizumab 30 mg/mL subcutaneous mg subcut 01/03/25 auto-injector (Fasenra Pen) budesonide-formoterol HFA 160 inhalation 01/03/25 mcg-4.5 mcg/actuation aerosol inhaler dulaglutide 3 mg/0.5 mL mg subcut 01/03/25 subcutaneous pen injector (Trulicity) losartan 100 mg tablet 100 mg PO DAILY 01/03/25 Previous Rx's ?Medication ?Instructions ?Recorded alcohol swabs (Alcohol Pads) 1 pad topical QIDACHS #200 ea 08/31/24 blood sugar diagnostic (FreeStyle #100 ea 08/31/24 Lite Strips) blood-glucose meter (FreeStyle #1 ea 08/31/24 Lite Meter kit) insulin aspart U-100 100 unit/mL See Protocol subcut USEASDIRECTD 08/31/24 (3 mL) subcutaneous pen #15 mL insulin glargine 100 unit/mL (3 20 unit (0.2 mL) subcut QAM #15 mL 08/31/24 mL) subcutaneous pen lancets #200 ea 08/31/24 lidocaine 4 % topical patch 2 patch transdermal DAILY #30 ea 08/31/24 (Lidocaine Pain Relief) pen needle, diabetic 31 gauge x #1,200 ea 08/31/24 5/16 (Pen Needle) ondansetron 8 mg disintegrating 8 mg PO BID-TID PRN for 12/19/24 tablet nausea/vomiting #90 ea gabapentin 800 mg tablet 800 mg PO TID #90 tabs 01/28/25 tramadol 50 mg tablet 50 mg PO QID pain 30 days #120 tabs 01/28/25 diclofenac potassium 25 mg tablet 25 mg PO TID 30 days #90 tabs 02/18/25 bisacodyl 5 mg tablet,delayed 10 mg (2 x 5 mg) PO BEDTIME #180 04/04/25 release tabs dexlansoprazole 60 mg 60 mg PO DAILY 30 days #30 caps 04/04/25 capsule,biphase delayed release (Dexilant) dicyclomine 20 mg tablet 20 mg PO QID #120 tabs 04/04/25 docusate sodium 100 mg capsule 100 mg PO DAILY #30 caps 04/04/25 (Stool Softener) bfgmyh-ycitcqvu-trqscri 2 cap PO BID #120 caps 04/04/25 25,000-79,000-105,000 unit capsule,delayed rel (Zenpep) sucralfate 1 gram tablet 1 g PO DAILY #30 tabs 04/04/25 Allergies Allergy/AdvReac Type Severity Reaction Status Date / Time No Known Allergies Allergy Verified 04/26/25 19:14 Review of Systems Review of Systems: Positive shoulder pain Yes all other systems are reviewed and are negative PMFSH Past Medical History Attestation statement: The following information was validated with the patient. Medical History Low back pain Asthma exacerbation Hypoxemia Colon cancer screening Sinusitis COVID-19 COVID-19 Controlled substance agreement signed Medication monitoring encounter Velia albicans infection Abdominal pain Lab test positive for detection of COVID-19 virus COVID-19 Left elbow pain Nausea Abdominal bloating Obesity Bacterial pneumonia COPD (chronic obstructive pulmonary disease) Arthritis Multinodular thyroid Tubular adenoma of colon Chronic fatigue Asthma Bleeding hemorrhoid IBS (irritable bowel syndrome) Vitamin D deficiency Graves disease Hyperlipidemia HTN (hypertension) Diabetes Lumbar radiculopathy Anemia Osteoarthritis Morbid obesity GERD (gastroesophageal reflux disease) Hepatitis C Surgical History Hx of colonoscopy History of esophagogastroduodenoscopy (EGD) Hx of appendectomy Hx of cholecystectomy Family History Family History Mother Diabetes HTN (hypertension) CVD (cardiovascular disease) Heart problem Father Diabetes Brother Autism History of open heart surgery CVD (cardiovascular disease) Diabetes Son Diabetes Maternal Grandmother Diabetes Maternal Grandfather Diabetes Social History Social History Household Members: Spouse, Children and Other Housing: Apartment Are you a primary caregiver assisted living to a significant other at home: No Do you presently have visiting nurse or other home services: No Alcohol intake: never Patient Tobacco Use Status: Never used Tobacco Smoked in Last 30 Days: No Use of substances other than those prescribed or required for medical reasons: No Advance Directives: No Advance Directives Information Provided: No Do you have a plan to hurt others: No Plan service: No Current occupational status: unemployed and disabled Current occupation: rt handed Physical Exam ED Exam Exam: Appearance: Alert. Oriented X3. No acute distress. Eyes: Pupils equal, round and reactive to light. ENT: Pharynx normal. Neck: Normal inspection. Neck supple. No lymph nodes noted. No crepitus CVS: Normal heart rate and rhythm. Pulses normal. Normal S1 and S2 Respiratory: No respiratory distress. Breath sounds normal. No Wheezing. No rales Abdomen: Soft and nontender. No rigidity. No distention. good BS x4 Skin: Skin warm and dry. Normal skin color. Normal skin turgor. Extremities: Examination of the shoulder showed the shoulder to be symmetrical. There is good range of motion in the shoulder. There is pain elicited on abduction greater than 45 degrees internal rotation of the shoulder. But the range of motion is intact. Patient's sensation over the axillary median radial and ulnar nerve intact movement of the elbow wrist intact movement of the hand intact opposition of the thumb intact capillary refill less than 2 seconds. Neuro: Oriented X 3. No motor deficit. No sensory deficit. Moving all extermities. No slurred speech Vital Signs: Vital Signs - 24 hr 04/26/25 19:11 04/26/25 20:22 04/26/25 21:37 Temperature 98.0 F Pulse Rate 93 91 92 Respiratory Rate 20 14 12 Blood Pressure 181/87 H 99/50 L 119/73 Pulse Oximetry 92 97 Oxygen Delivery Method Nasal Cannula Room Air BMI result Body Mass Index 47.5 Course Course Course Narrative: This is an RME: Additional HPI, ROS, PE not included below will be deferred to primary provider. RME assessment and note performed by: Mary Lou Snell PA-C This is a 6-hous-cnn-female, with a hx of COPD on 2L NC at baseline, HLD, HTN, hepatitis C, GERD, who presents to the ER with a complaint of left shoulder, left sided chest pain, and arm pain x 4 days. No trauma, injury Plan: Labs, EKG, CXR, shoulder xray Medications Administered Discontinued Medications Generic Name Dose Route Start Last Admin Trade Name Freq PRN Reason Stop Dose Admin Hydrocodone Bitart/Acetaminophen 1 tab 04/26/25 21:32 04/26/25 21:44 Hydrocodone Bit/Acetam 5/325 Tablet PO 04/26/25 21:33 1 tab ONCE ONE Administration Medical Decision Making Medical Decision Making [facility] Narrative: My interpretation of patient's chest x-ray and shoulder x-ray were both negative. Patient's pain appears to be musculoskeletal she has no risk factors for PE. She does have multitude of cardiac risk factor including hypertension hypercholesterolemia history of larger in size with a BMI of 47.5. However my interpretation of her EKG showed a sinus rhythm heart rate is in the 90 LA QRS QTC normal no acute ST segment elevation. Patient's troponin is less than 2.7 with the constant pain that is worse with movement. Unlikely to be secondary ACS. Patient's heart score is a 3. Will require follow-up on an outpatient basis. History not consistent with dissection. Patient is in stable condition. History not consistent with PE. My interpretation patient's chest x-ray showed no acute evidence of pneumonia no acute evidence of pneumothorax. She is in stable condition. Patient is satting 94% to 95% on 2 L of oxygen which is baseline. Differential Diagnosis Differential Diagnoses: The differential diagnosis associated with the presentation includes Shoulder pain, ACS, pneumonia, pneumothorax Admission/Observation Consideration of admission/observation: Escalation of care including admission/observation considered Lab Data [facility] Lab Attestation statement: I reviewed the patient's lab results. 04/26/25 19:35 04/26/25 19:35 Labs: Lab Results 04/26/25 Range/Units 19:35 WBC 9.0 (4.8-10.8) X10*3/uL RBC 4.24 (4.20-5.50) X10*6/uL Hgb 11.0 L (12.0-16.0) g/dl Hct 36.0 L (37.0-47.0) % MCV 84.9 (80.0-98.0) fL MCH 25.9 L (27.0-33.0) pg MCHC 30.6 L (31.0-35.0) g/dl RDW 15.0 (11.0-16.0) % Plt Count 246 (160-400) X10*3/uL MPV 10.0 (9.4-12.3) fL Immature Gran % (Auto) 0.4 (0.0-0.4) % Neut % (Auto) 73.7 H (45-73) % Lymph % (Auto) 17.0 L (20-40) % [place] % (Auto) 8.6 (2-11) % Eos % (Auto) 0.0 (0-4) % Baso % (Auto) 0.3 (0-2) % Lymph # (Auto) 1.5 (1.2-4.9) X10*3/uL [place] # (Auto) 0.8 (0.1-1.2) X10*3/uL Eos # (Auto) 0.0 (0.0-0.4) X10*3/uL Baso # (Auto) 0.0 (0.0-0.2) X10*3/uL Abs Immat Gran (auto) 0.04 H (0.00-0.03) X10*3/uL Absolute Neuts (auto) 6.6 (2.0-8.3) x10*3/uL Absolute Nucleated RBC 0.000 (0.0-0.012) X10*3/uL Nucleated RBC % (auto) 0.0 (0.0-0.2) /100WBC Sodium 142 (135-145) mmol/L Potassium 3.8 (3.3-5.1) mmol/L Chloride 103 (96-108) mmol/L Carbon Dioxide 30 H (22-29) mmol/L Anion Gap 13 (12-20) BUN 10 (9-16) mg/dL Creatinine 0.81 (0.5-1.4) mg/dL Estim Creat Clear Calc 96.8 Estimated GFR > 60 Random Glucose 103 (60-115) mg/dL Calcium 9.3 (8.4-10.2) mg/dL Magnesium 2.2 (1.6-2.6) mg/dL Total Bilirubin 0.2 (0.0-1.0) mg/dL Direct Bilirubin < 0.2 (0.0-0.5) mg/dL AST 18 (5-31) U/L ALT 17 (0-31) U/L Alkaline Phosphatase 108 (39-117) U/L Troponin I High Sens < 2.7 (<3.5-17.0) ng/L Total Protein 7.1 (6.5-8.0) g/dL Albumin 4.1 (3.5-5.0) g/dL Independent Interpretation I performed an independent interpretation of an: EKG (My interpretation patient's EKG as above) and Plain X-Ray (My interpretation the shoulder x-ray and the chest x-ray were both negative for acute fracture no pneumothorax) Radiology Impression Discussion of test interpretation with radiology: I have reviewed the radiologist's reading. External Record Review External record reviewed: Inpatient record and Primary care record Discharge Plan Discharge Clinical Impression: Acute shoulder pain Patient Disposition: Home, Self-Care Instructions: Shoulder Pain (ED) Prescriptions: No Action ondansetron 8 mg tablet,disintegrating 8 mg PO BID-TID PRN (Reason: for nausea/vomiting) Qty: 90 6RF tramadol 50 mg tablet 50 mg PO QID 30 Days Qty: 120 5RF gabapentin 800 mg tablet 800 mg PO TID Qty: 90 5RF Rx Instructions: Patient must complete labs before next appointment in January diclofenac potassium 25 mg tablet 25 mg PO TID 30 Days Qty: 90 0RF aspirin 81 mg tablet,delayed release (DR/EC) 81 mg PO BEDTIME ferrous sulfate [FeroSul] 325 mg (65 mg iron) tablet 1 tab PO BID multivitamin Tablet 1 tab PO BEDTIME albuterol sulfate 2.5 mg /3 mL (0.083 %) solution for nebulization 1 amp inhalation Q6H PRN (Reason: wheezing) lamotrigine 200 mg tablet 200 mg PO BEDTIME ketoconazole 2 % shampoo 1 appl TOPICAL MOWE diltiazem HCl 180 mg capsule,extended release 24hr 180 mg PO DAILY hydrocortisone 1 % ointment 1 appl topical BID sertraline 100 mg tablet 200 mg PO DAILY simvastatin 40 mg tablet 40 mg PO BEDTIME lorazepam 0.5 mg tablet 0.5 mg PO BID PRN (Reason: anxiety) mirtazapine 30 mg tablet 30 mg PO BEDTIME montelukast 10 mg tablet 10 mg PO BEDTIME albuterol sulfate [Ventolin HFA] 90 mcg/actuation HFA aerosol inhaler 2 puff INHALATION Q6H metformin 500 mg tablet extended release 24 hr 1,000 mg PO BID bupropion HCl 300 mg tablet extended release 24 hr 300 mg PO DAILY tiotropium bromide [Spiriva with HandiHaler] 18 mcg capsule, w/inhalation device 1 cap inhalation DAILY hydrochlorothiazide 12.5 mg tablet 12.5 mg PO Q OTHER DAY Dulera 200-5 mcg/actuation HFA aerosol inhaler 2 puff INHALATION BID hydrocortisone 2.5 % cream with perineal applicator 1 appl LA BID folic acid 1 mg Tablet 1 mg PO DAILY lidocaine [Lidocaine Pain Relief] 4 % Adhesive Patch,Medicated 2 patch transdermal DAILY Qty: 30 1RF Protocol: Apply to: Apply to: lower back (DME) blood-glucose meter [FreeStyle Lite Meter] Kit See Rx Instructions .ROUTE .MEDSUPPLY Qty: 1 0RF Rx Instructions: As directed alcohol swabs [Alcohol Pads] Pads, Medicated 1 pad topical QIDACHS Qty: 200 0RF (DME) FreeStyle Lite Strips Strip See Rx Instructions .ROUTE .MEDSUPPLY Qty: 100 0RF Rx Instructions: QID insulin aspart U-100 100 unit/mL (3 mL) insulin pen See Protocol subcut USEASDIRECTD Qty: 15 0RF Protocol: Insulin Correction Scale Less than or equal to 110 ---- Give (units): 0 111 to 150 Give (units): 0 151 to 200 Give (units): 2 201 to 250 Give (units): 4 251 to 300 Give (units): 6 301 to 350 Give (units): 8 Greater than 350 Give (units): 10 Call MD if Blood Glucose > : 350 (DME) lancets [facility] See Rx Instructions .ROUTE .MEDSUPPLY Qty: 200 0RF Rx Instructions: 4 times daily (DME) pen needle, diabetic [Pen Needle] 31 gauge x 5/16 needle See Rx Instructions .ROUTE .MEDSUPPLY Qty: 1200 0RF Rx Instructions: As directed insulin glargine 100 unit/mL (3 mL) insulin pen 20 unit subcut QAM Qty: 15 0RF (DME) lancets [TRUEplus Lancets] [facility] See Rx Instructions .ROUTE QID Qty: 100 Rx Instructions: As directed (DME) FreeStyle Lite Strips Strip See Rx Instructions .ROUTE QID Qty: 10 Rx Instructions: As directed Trulicity 3 mg/0.5 mL pen injector subcut budesonide-formoterol 160-4.5 mcg/actuation HFA aerosol inhaler inhalation losartan 100 mg tablet 100 mg PO DAILY Fasenra Pen 30 mg/mL auto-injector subcut bisacodyl 5 mg tablet,delayed release (DR/EC) 10 mg PO BEDTIME Qty: 180 1RF dexlansoprazole [Dexilant] 60 mg capsule,biphase delayed releas 60 mg PO DAILY 30 Days Qty: 30 12RF dicyclomine 20 mg tablet 20 mg PO QID Qty: 120 12RF docusate sodium [Stool Softener] 100 mg capsule 100 mg PO DAILY Qty: 30 12RF Zenpep 25,000-79,000- 105,000 unit capsule,delayed release(DR/EC) 2 cap PO BID Qty: 120 12RF sucralfate 1 gram tablet 1 g PO DAILY Qty: 30 12RF Referrals: Physician,Unknown J [Primary Care Provider, Medical] - 04/28/25 Print Language: Senegalese
--- NOTE | 2025-04-26 19:16 | ECG_ITS ---
Test Reason : CHEST PAIN Blood Pressure : */* mmHG Vent. Rate : 92 BPM Atrial Rate : 92 BPM P-R Int : 148 ms QRS Dur : 86 ms QT Int : 368 ms P-R-T Axes : 43 0 35 degrees QTcB Int : 455 ms Normal sinus rhythm Normal ECG When compared with ECG of 27-Aug-2024 10:47, No significant change was found Referred By: Mary Lou Snell Electronically Signed By: ZOYA JORDAN
[2025-04-26 19:40] LABS: MANUAL DIFF FLAG NO
[2025-04-26 19:44] LABS: Hematocrit 36.0 % (37.0-47.0); Hemoglobin 11.0 g/dl (12.0-16.0); Imm Gran Abs Auto 0.04 X10*3/uL (0.00-0.03); Imm Gran Pct Auto 0.4 % (0.0-0.4); Lymphocytes Absolute Auto 1.5 X10*3/uL (1.2-4.9); Mean Corpuscular HGB Conc 30.6 g/dl (31.0-35.0); Mean Corpuscular Hemoglobin 25.9 pg (27.0-33.0); Mean Corpuscular Volume 84.9 fL (80.0-98.0); NRBC Abs Auto 0.000 X10*3/uL (0.0-0.012); NRBC Pct Auto 0.0 /100WBC (0.0-0.2); Platelet Count 246 X10*3/uL (160-400); Red Blood Count 4.24 X10*6/uL (4.20-5.50); White Blood Count 9.0 X10*3/uL (4.8-10.8)
[2025-04-26 19:56] LABS: Alanine Aminotransferase 17 U/L (0-31); Albumin Level 4.1 g/dL (3.5-5.0); Alkaline Phosphatase 108 U/L (39-117); Anion Gap 13 (12-20); Aspartate Amino Transferase 18 U/L (5-31); Blood Urea Nitrogen 10 mg/dL (9-16); Calcium 9.3 mg/dL (8.4-10.2); Carbon Dioxide 30 mmol/L (22-29); Chloride 103 mmol/L (96-108); Creatinine Clr Calc Pharmacy 96.8; Estimated Glomerular Filt Rate > 60; Magnesium 2.2 mg/dL (1.6-2.6); Potassium 3.8 mmol/L (3.3-5.1); Sodium 142 mmol/L (135-145); Total Protein 7.1 g/dL (6.5-8.0)
[2025-04-26 20:11] LABS: Troponin-I High Sensitivity < 2.7 ng/L (<3.5-17.0)
--- OUTSIDE RECORDS SUMMARY | 2025-04-26 20:14 | XMS_ITS | Encounter Summary ---
Author Organization [employer] Address [address] [facility] [address] [facility] [place] [address] Care Team Providers Care Natural Fabricator Name Role Phone Dee Valenzuela MD Primary Care Provider [phone] Aggie Campuzano PharmD Unavailable [phone] Reason for Referral * Consultation (Routine) - Closed Specialty Diagnoses / Procedures Referred By Lurdes freeman Referred To Contact Orthopaedic Surgery Diagnoses Closed nondisplaced fracture of phalanx of left great toe, unspecified phalanx, initial encounter Dee Valenzuela MD [address] [place] [address] Phone: tel: fax: [facility] [address] [place] [address] [place] [address] Phone: tel: fax: Referral ID Status Reason Start Date Expiration Date V isits Requested Visits Authorized [id number] Closed Specialty Services Required 03/24/2025 03/24/2026 1 1 Encounter Details Date Type Department Care Team ([facility] st Contact Info) Description 03/24/2025 Orders Only [facility] MED [facility] PEDS [address] [place], [place] [phone] Dee Valenzuela MD [address] [place], [place] [phone] Closed nondisplaced fracture of phalanx of left [...] Description 04/30/2025 10:30 AM EDT Medication Management [facility] [address] [place] [address] Aggie Campuzano, PharmD [address] [place], [place] [phone] documented as of this encounter Procedures Procedure [...] documented as of this encounter Care Teams Natural Fabricator Relationship Specialty Start Date End Date Dee Valenzuela MD [address] [place] [address] PCP - General Internal Medicine 10/11/13 Aggie Campuzano PharmD [address] [place] [address] Pharmacist Pharmacy 02/12/25 documented as of this encounter
--- OUTSIDE RECORDS SUMMARY | 2025-04-26 20:14 | XMS_ITS | Encounter Summary ---
Author Organization [employer] Address [address] [facility] 7t [place] [address] Care Team Providers Care Machines Technician Name Role Phone Dee Valenzuela MD Primary Care Provider Aggie Campuzano PharmD Unavailable [phone] Reason for Visit * Reason Onset Date Comments Appointment Request 04/02/2024 Encounter Details Date Type Department Care Team (Late st Contact Info) Description 04/02/2024 Telephone [facility] MEDICINE [address] [place] [address] Dee Valenzuela MD [address] [place] [address] Appointment Request Social History Tobacco Use Types [...] Description 04/30/2025 10:30 AM EDT Medication Management [facility] MED & PEDS [address] [place] [address] Aggie Campuzano PharmD [address] [place] [address] documented as of this encounter Visit Diagnoses Not on filedocumented in this encounter Additional Health Concerns Assessment Noted Time PHQ-9 Depression Total Score: 17 022 12:14 PM EST documented as of this encounter Care Teams Machines Technician Relationship Specialty Start Date End Date Dee Valenzuela MD [address] [place] [address] PCP - General Internal Medicine 10/11/13 Aggie Campuzano PharmD [address] [place] [address] Pharmacist Pharmacy 02/12/25 documented as of this encounter
--- OUTSIDE RECORDS SUMMARY | 2025-04-26 20:14 | XMS_ITS | Encounter Summary ---
Author Organization [employer] Address [address] [facility] 7t [place] [address] Care Team Providers Care Public Transit Trolley Driver Name Role Phone Dee Valenzuela MD Primary Care Provider [phone] Aggie Campuzano PharmD Unavailable [phone] Encounter Details Date Type Department Care Team [...] Description 04/30/2025 10:30 AM EDT Medication Management [facility] MED & PEDS [address] [place] [address] Aggie Campuzano PharmDevaughn [address] [place] [address] documented as of this encounter Visit Diagnoses Not on filedocumented in this encounter Additional Health Concerns Assessment Noted Time PHQ-9 Depression Total Score: 0 04/14/20 3:23 PM EDT documented as of this encounter Care Teams Public Transit Trolley Driver Relationship Specialty Start Date End Date Dee Valenzuela MD [address] [place] [address] PCP - General Internal Medicine 10/11/13 Aggie Campuzano, PharmD [address] [place] [address] Pharmacist Pharmacy 02/12/25 documented as of this encounter
--- OUTSIDE RECORDS SUMMARY | 2025-04-26 20:14 | XMS_ITS | Encounter Summary ---
Author Organization [employer] Address 75 [facility] 7t [place] [address] Care Team Providers Care Needle Valve Operator Name Role Phone Dee Valenzuela MD Primary Care Provider [phone] Aggie Campuzano PharmD Unavailable [phone] Encounter Details Date Type Department Care Team (Late st Contact Info) Description 01/12/2024 Orders Only [facility] MED & PEDS [address] [place], [place] [phone] Dee Valenzuela MD [address] [place], [place] [phone] Iron deficiency (Primary Dx) Social History Tobacco [...] 10:30 AM EDT Medication Management [facility] MED & PEDS [address] [place] [address] Aggie Campuzano PharmD 230 [place] [address] Scheduled Orders Name Type Priority Associated Diagnoses [...] documented as of this encounter Care Teams Needle Valve Operator Relationship Specialty Start Date End Date Dee Valenzuela MD [address] [place] [address] PCP - General Internal Medicine 10/11/13 Aggie Campuzano PharmD 230 [place] [address] Pharmacist Pharmacy 02/12/25 documented as of this encounter
--- OUTSIDE RECORDS SUMMARY | 2025-04-26 20:14 | XMS_ITS | Encounter Summary ---
Author Organization [employer] Address 75 [facility] 7t [place] [address] Care Team Providers Care Varnish Finisher Name Role Phone Dee Valenzuela MD Primary Care Provider [phone] Aggie Campuzano PharmD Unavailable [phone] Reason for Visit * Reason Comments Med Refill Encounter Details Date Type Department Care Team (Late st Contact Info) Description 02/17/2025 Refill [facility] [address] [place] [address] Dee Valenzuela MD 505 [place] [address] Seborrheic dermatitis Social History Tobacco Use Types [...] Description 04/30/2025 10:30 AM EDT Medication Management [facility] MED & PEDS [address] [place] [address] Aggie Campuzano PharmD [address] [place] [address] documented as of this encounter Visit Diagnoses Diagnosis Seborrheic dermatitis Unspecified seborrheic dermatitis documented in this encounter Additional Health Concerns Assessment Noted Time PHQ-9 Depression Total Score: 17 022 12:14 PM EST documented as of this encounter Care Teams Varnish Finisher Relationship Specialty Start Date End Date Dee Valenzuela MD [address] [place] [address] PCP - General Internal Medicine 10/11/13 Aggie Campuzano PharmD [address] [place] [address] Pharmacist Pharmacy 02/12/25 documented as of this encounter
--- OUTSIDE RECORDS SUMMARY | 2025-04-26 20:14 | XMS_ITS | Encounter Summary ---
Author Organization [employer] Address 75 [facility] 7t [place] [address] Care Team Providers Care Cloth Printer Name Role Phone Dee Valenzuela MD Primary Care Provider Aggie Campuzano PharmD Unavailable [phone] Encounter Details Date Type Department Care Team (Late st Contact Info) Description 11/29/2024 Orders Only [facility] MED & PEDS [address] [place], [place] [phone] Dee Valenzuela MD 505 [place], [place] [phone] Type 2 diabetes mellitus without complication, without long-term current use of insulin (CMS/[facility]) Social History Tobacco Use Types Packs/Day Years [...] [facility] & PEDS [address] [place] [address] Aggie Campuzano PharmD [address] [place] [address] documented as of this encounter Visit Diagnoses Diagnosis Type 2 diabetes mellitus without complication, without long-term current use of insulin ([facility]) documented in this encounter Additional Health Concerns Assessment Noted Time PHQ-9 Depression Total Score: 17 022 12:14 PM EST documented as of this encounter Care Teams Cloth Printer Relationship Specialty Start Date End Date Dee Valenzuela MD 505 [place] [address] PCP - General Internal Medicine 10/11/13 Aggie Campuzano PharmD [address] [place] [address] Pharmacist Pharmacy 02/12/25 documented as of this encounter
--- OUTSIDE RECORDS SUMMARY | 2025-04-26 20:14 | XMS_ITS | Encounter Summary ---
Author Organization [facility] Address [address] [place] [address] Phone Care Team Providers Care Intern Product Marketing Manager Name Role Phone Unavailable Primary Care Provider Unavailabl e Encounter Details Date Type Department Care Team (Late st Contact Info) Description 04/26/2018 Ancillary Orders [facility] [address] [place] [address] 3rd Floor, [address] [place] [address] Saritha Dumont PA [address] [place] [address] Social History Tobacco Use Types Packs/Day Years [...] It is not the complete legal health record.[facility]
--- OUTSIDE RECORDS SUMMARY | 2025-04-26 20:14 | XMS_ITS | Encounter Summary ---
Author Organization [employer] Address [address] [facility] 7 [place] [address] Care Team Providers Care Parts Department Supervisor Name Role Phone Dee Valenzuela MD Primary Care Provider Aggie Campuzano PharmD Unavailable [phone] Reason for Visit * Reason Onset Date Comments Med Refill 04/24/2025 Encounter Details Date Type Department Care Team (Late st Contact Info) Description 04/24/2025 Refill [facility] MED & PEDS [address] [place], [place] [phone] Dee Valenzuela MD 505 [place], [place] [phone] Left elbow pain Social History Tobacco Use Types Packs/Day Years [...] 5 % ointment To be sent to: [facility] - [place], [place] - [address] [facility] documented in this encounter Plan of Treatment Upcoming Encounters Date Type Department Care Team (Late st Contact Info) Description 04/30/2025 10:30 AM EDT Medication Management [facility] MED & PEDS [address] [place] [address] Aggie Campuzano, PharmD [address] [place] [address] documented as of this encounter Visit Diagnoses Diagnosis Left elbow pain Pain in joint, upper arm documented in this encounter Additional Health Concerns Assessment Noted Time PHQ-9 Depression Total Score: 0 04/14/20 25 3:23 PM EDT documented as of this encounter Care Teams Parts Department Supervisor Relationship Specialty Start Date End Date Dee Valenzuela MD [address] [place] [id number] PCP - General Internal Medicine 10/11/13 Aggie Campuzano PharmD [address] [place] [address] Pharmacist Pharmacy 02/12/25 documented as of this encounter
--- OUTSIDE RECORDS SUMMARY | 2025-04-26 20:14 | XMS_ITS | Encounter Summary ---
Author Organization [employer] Address 75 [facility] 7t [place] [address] Care Team Providers Care Bricklayer Sewer Name Role Phone Dee Valenzuela MD Primary Care Provider Aggie Campuzano PharmD Unavailable [phone] Encounter Details Date Type Department Care Team (Late st Contact Info) Description 07/02/2024 Orders Only [facility] CH[facility] MED & PEDS [address] [place], [place] [phone] Dee Valenzuela MD [address] [place], [place] [phone] Type 2 diabetes mellitus without complication, without long-term current use of insulin (CMS/HCC); Type 2 diabetes mellitus with hyperglycemia ([facility]/HCC) Social History Tobacco Use Types Packs/Day Years [...] Description 04/30/2025 10:30 AM EDT Medication Management [facility] CH[facility] MED & PEDS [address] [place] [address] Aggie Campuzano PharmD 230 [place] [address] documented as of this encounter Visit Diagnoses Diagnosis Type 2 diabetes mellitus without complication, without long-term current use of insulin ([facility]) Type 2 diabetes mellitus with hyperglycemia ([facility]) documented in this encounter Additional Health Concerns Assessment Noted Time PHQ-9 Depression Total Score: 17 022 12:14 PM EST documented as of this encounter Care Teams Bricklayer Sewer Relationship Specialty Start Date End Date Dee Valenzuela MD [address] [place], [place] [phone] PCP - General Internal Medicine 10/11/13 Aggie Campuzano PharmD [address] [place], [place] [phone] Pharmacist Pharmacy 02/12/25 documented as of this encounter
--- OUTSIDE RECORDS SUMMARY | 2025-04-26 20:14 | XMS_ITS | Clinical Summary ---
Author Organization [facility] Address [address] [place] [address] Care Team Providers Care Home Child Care Provider Name Role Phone Unavailable Primary [...]
--- OUTSIDE RECORDS SUMMARY | 2025-04-26 20:14 | XMS_ITS | Encounter Summary ---
Author Organization [employer] Address 75 [facility] 7t [place] [address] Care Team Providers Care Blurb Writer Name Role Phone Dee Valenzuela MD Primary Care Provider Aggie Campuzano PharmD Unavailable [phone] Encounter Details Date Type Department Care Team ([facility] st Contact Info) Description 07/22/2024 Orders Only [facility] CHC MED & PEDS [address] [place], [place] [phone] Dee Valenzuela MD [address] [place], [place] [phone] Social History Tobacco Use Types Packs/Day Years [...] [facility] MED & PEDS [address] [place] [address] Aggie Campuzano PharmD 230 [place] [address] documented as of this encounter Visit Diagnoses Not on filedocumented in this encounter Additional Health Concerns Assessment Noted Time PHQ-9 Depression Total Score: 17 022 12:14 PM EST documented as of this encounter Care Teams Blurb Writer Relationship Specialty Start Date End Date Dee Valenzuela MD [address] [place] [address] PCP - General Internal Medicine 10/11/13 Aggie Campuzano PharmD [address] [place] [address] Pharmacist Pharmacy 02/12/25 documented as of this encounter
--- OUTSIDE RECORDS SUMMARY | 2025-04-26 20:14 | XMS_ITS | Encounter Summary ---
Author Organization [employer] Address 75 [facility] 7t [place] [address] Care Team Providers Care Project Internship Name Role Phone Dee Valenzuela MD Primary Care Provider [phone] Aggie Campuzano PharmD Unavailable [phone] Reason for Visit * Reason Onset Date Comments returning call 07/20/2022 Encounter Details Date Type Department Care Team ([facility] st Contact Info) Description 07/20/2022 Telephone [facility] MED & PEDS [address] [place], [place] [phone] Dee Valenzuela MD [address] [place], [place] [phone] returning call Social History Tobacco Use Types [...] 10:30 AM EDT Medication Management [facility] MED & PEDS [address] [place] [address] Aggie Campuzano PharmD [address] [place] [address] documented as of this encounter Visit Diagnoses Not on filedocumented in this encounter Additional Health Concerns Assessment Noted Time PHQ-9 Depression Total Score: 17 07/20/ 022 12:14 PM EST documented as of this encounter Care Teams Project Internship Relationship Specialty Start Date End Date Dee Valenzuela MD [address] [place] [address] PCP - General Internal Medicine 10/11/13 Aggie Campuzano, ClaraD [address] [place] [address] Pharmacist Pharmacy 02/12/25 documented as of this encounter
--- OUTSIDE RECORDS SUMMARY | 2025-04-26 20:14 | XMS_ITS | Encounter Summary ---
Author Organization [employer] Address [address] [facility] 7t [place] [address] Care Team Providers Care Labor Contract Analyst Name Role Phone Dee Valenzuela MD Primary Care Provider Aggie Campuzano PharmD Unavailable [phone] Encounter Details Date Type Department Care Team (Late st Contact Info) Description 04/29/[address] [facility] CHC MED & PEDS [address] [place], [place] [phone] Dee Valenzuela MD [address] [place], [place] [phone] Type 2 diabetes mellitus without complication, without [...] 04/30/2025 10:30 AM EDT Medication Management [facility] MED & PEDS [address] [place] [address] Aggie Campuzano PharmD [address] [place] [address] documented as of this encounter Visit Diagnoses Diagnosis Type 2 diabetes mellitus without complication, without long-term current use of insulin ([facility])- Primary documented in this encounter Additional Health Concerns Assessment Noted Time PHQ-9 Depression Total Score: 17 022 12:14 PM EST documented as of this encounter Care Teams Labor Contract Analyst Relationship Specialty Start Date End Date Dee Valenzuela MD [address] [place], [place] [phone] PCP - General Internal Medicine 10/11/13 Aggie Campuzano PharmD [address] [place] [address] Pharmacist Pharmacy 02/12/25 documented as of this encounter
--- OUTSIDE RECORDS SUMMARY | 2025-04-26 20:14 | XMS_ITS | Clinical Summary ---
Author Organization [employer] Address [address] [place] [address] 7t [place] [address] Care Team Providers Care Signals Intelligence Superintendent Name Role Phone Dee Valenzuela MD Primary Care Provider Aggie Campuzano PharmD Unavailable [phone] Allergies Active Allergy Reactions Criticality Noted Date [...] 1 023 Active Blood Glucose Monitoring Suppl ([employer] Verio Flex System) device Inject 1 Units under the skin 3 times daily. Test blood sugar as directed 1 each 023 Active Lancets ([employer] Delica Plus Asazgr18Q) miscIndications: Type 2 diabetes mellitus with hyperglycemia ([facility]) To check the blood sugar once a day 90 each 3 024 Active buPROPion XL (Wellbutrin XL) 300 MG 24 hr tablet Take 1 tablet by mouth in the morning. Active lamoTRIgine (LaMICtal) 200 MG tablet Take 1 tablet by mouth at bedtime. 025 Active mirtazapine (Remeron) 30 MG tablet Take 1 tablet by mouth at bedtime. Active Zenpep 31020-51614 units capsule delayed-release particles capsule Take 2 capsules by mouth 2 times daily. WITH MEALS OR SNACK Active glucose 4 g chewable tabletIndication s:Type 2 diabetes mellitus with hyperglycemia, without long-term current use of insulin ([facility]) Chew 4 tablets (16 g) if needed [...] 90 tablet 1 025 Active Continuous Glucose Telephonic Nurse Case Manager (FreeStyle Juan Ramon 3 [place]) deviceIndication s:Type 2 diabetes mellitus without complication, [...] mouth every day at bedtime 025 Active hydrocortisone 1 % ointmentIndicati ons:Seborrheic [...] 12 hours or as directed by MD. 15 patch 2 025 Active lidocaine (Xylocaine) 5 % ointmentIndicati ons:Left elbow pain Apply topically Once per day. 60 g 3 025 Active traMADol (Ultram) 50 MG tablet Take 50 mg by mouth every 6 (six) hours if needed for severe pain. 2024 Discontinued(R eorder (will not trigger notification to Pharmacy)) Trulicity 3 MG/0.5ML solution auto-injectorInd ications:Type 2 diabetes mellitus with hyperglycemia, without long-term current use of insulin ([facility]) INJECT ONE PEN (= 3MG) SUBCUTANEOUSLY ONCE A WEEK DIRECTED 2 mL 1 025 2024 Discontinued hydroCHLOROthiaz lisa 12.5 MG tabletIndication s:Primary hypertension TAKE 1 TABLET BY MOUTH EVERY OTHER DAY IN THE MORNING 15 tablet 1 025 2024 Discontinued lidocaine (Xylocaine) 5 % ointmentIndicati ons:Left elbow pain APPLY TOPICALLY TO THE AFFECTED AREA(S) NEEDED FOR MILD PAIN 60 g 3 025 2024 Discontinued(R eorder (will not [...] Description 04/24/2025 1:20 PM EDT Office Visit [facility] [address] [place] [address] Keya Vang MD Acute pain of left shoulder (Primary Dx); Left cervical radiculopathy 04/24/2025 Refill [facility] & PEDS [address] [place], [place] [phone] Dee Valenzuela MD Left elbow pain 04/24/2025 Travel 04/15/2025 Telephone [facility] [address] [place] [address] Dee Valenzuela MD Care Coordination 04/14/2025 11:15 AM EDT Office Visit [facility] MED & PEDS [address] [place] [address] Dee Valenzuela MD Closed nondisplaced fracture of phalanx of left great toe, unspecified phalanx, initial encounter (Primary Dx); Type 2 diabetes mellitus with other specified complication, with long-term current use of insulin ([facility]) 04/14/2025 Orders Only [facility] MED & PEDS [address] [place] [address] Dee Valenzuela MD 04/14/2025 Telephone [facility] PED[facility] [address] [place] [address] Dee Valenzuela MD 04/14/2025 Travel 04/11/2025 Telephone [facility] MED [facility] PEDS [address] [place] [address] Dee Valenzuela MD chart prep 04/08/2025 Refill [facility] [address] [place] [address] Dee Valenzuela MD Closed nondisplaced fracture of phalanx of left great toe, unspecified phalanx, initial encounter (Primary Dx) 04/08/2025 Refill [facility] MED & P[facility]S [address] [place] [address] Dee Valenzuela MD Nondisplaced unspecified fracture of left great toe, initial encounter for closed fracture; Closed nondisplaced fracture of phalanx of left great toe, unspecified phalanx, initial encounter 04/03/2025 Refill [facility] MED & PEDS [address] [place] [address] Dee Valenzuela MD Primary hypertension 03/28/2025 Refill [facility] [address] [place] [address] Dee Valenzuela MD Type 2 diabetes mellitus with hyperglycemia, without long-term current use of insulin ([facility]) 03/27/2025 Results Follow-Up [facility] MED [facility] P[facility] [address] [place] [address] Elisha Villeda, JONATHAN XR Toes 2+ Left, POCT Glucose, POCT HGB A1C, Additional followed-up results: 3 03/26/2025 Telephone [facility] MED & PEDS [address] [place] [address] Dee Valenzuela MD Medication Question 03/26/2025 Travel 03/25/2025 Telephone [facility] [address] [place] [phone] Dee Valenzuela MD Durable Medical Equipment 03/24/2025 10:45 AM EDT Office Visit [facility] MED [facility] PED[facility] [address] [place] [address] Dee Valenzuela MD Primary hypertension (Primary Dx); Type 2 diabetes mellitus with other specified complication, with long-term current use of insulin ([facility]); Great toe pain, left; Closed nondisplaced fracture of phalanx of left great toe, unspecified phalanx, initial encounter 03/24/2025 Orders Only [facility] MED [facility] P[facility] [address] [place] [address] Dee Valenzuela MD Closed nondisplaced fracture of phalanx of left great toe, unspecified phalanx, initial encounter (Primary Dx) 03/24/2025 Orders Only [facility] MED [facility] P[facility] [address] [place] [address] Dee Valenzuela MD 03/24/2025 Travel 03/21/2025 Telephone [facility] MED [facility] P[facility] [address] [place] [address] Dee Valenzuela MD chart prep 03/09/2025 Refill [facility] [address] [place] [address] Dee More MD Vitamin deficiency 03/08/2025 Refill [facility] [address] [place] [address] Dee Valenzuela MD Type 2 diabetes mellitus with hyperglycemia, without long-term current use of insulin (CMS/HCC); Vitamin deficiency 02/27/2025 Refill [facility] [address] [place] [address] Dee Valenzuela MD Seborrheic dermatitis 02/17/2025 Refill [facility] [address] [place] [address] Dee Valenzuela MD Seborrheic dermatitis 02/17/2025 Refill [facility] [address] [place] [address] Terese Izaguirre MD Acute paronychia of finger of left hand; Cellulitis of left finger 02/13/2025 Refill [facility] [address] [place] [address] Laya Hernández MD Left elbow pain 02/12/2025 Travel 02/11/2025 Refill [facility] [address] [place] [address] Dee Valenzuela MD 02/05/2025 Refill [facility] [address] [place] [address] Dee Valenzuela MD Primary hypertension 01/30/2025 Refill [facility] [address] [place] [address] Dee Valenzuela MD Type 2 diabetes mellitus with hyperglycemia, without long-term current use of insulin ([facility]) 01/28/2025 3:00 PM EDT Office Visit [facility] [address] [place] [address] Terese Izaguirre MD Acute paronychia of finger of left hand (Primary Dx); Cellulitis of left finger; Dizziness; Type 2 diabetes mellitus with other specified complication, with long-term current use of insulin ([facility]) 01/28/2025 Telephone [facility] [address] [place] [address] Dee Valenzuela MD 01/24/2025 Telephone [facility] MED [facility] P[facility] [address] [place] [address] Dee Valenzuela MD Prior Authorization from Last [...] 10:30 AM EDT Medication Management [facility] P[facility] [address] [place] [address] Aggie Campuzano, PharmD [address] [place] [address] Health Maintenance Due Date Last Done Comments [...] PM EDT Acute pain of left shoulder POCT GLUCOSE Routine 04/14/2025 11:58 AM EDT Type 2 diabetes mellitus with other specified complication, with long-term current use of insulin ([facility]) AMB REFERRAL TO ORTHOPAEDIC SURGERY Routine 03/31/2025 [...] Recently Relevant to Health Maintenance Results * XR CERVICAL SPINE 3V (04/24/2025 2:25 PM EDT) Anatomical Region Laterality Modality Abdomen Radiographic Agatha ging 04/24/2025 2:25 PM EDT Narrative 04/24/2025 2:47 PM EDT [address] [address] XRay Report Signed Patient: Lilliam Geller MR#: [id number] : 1965 Acct:[id number] Age/Sex: 59 / F ADM Date: 04/24/25 [facility] Dr: Keya Vang MD Ordering Physician: Keya Vang MD Date of Service: 04/24/25 Procedure(s): XR cervical spine 3V Accession Number(s): [id number] cc: Keya Vang MD Reason for Exam: [...] Sandoval MD in OV> 04/24/25 1444 DD/ 1425 TD/TT: 04/24/25 1429 Bridge Manager: Procedure Note Donotuseinterpreter, Image - 04/24/[address] [address] XRay Report Signed Patient: Lilliam GellerMR#: [id number] : 1965Acct:[id number] Age/Sex: 59 / FADM Date: 04/24/25 Loc: HO.CX Attending Dr: Keya Vang MD Ordering Physician: Keya Vang MD Date of Service: 04/24/25 Procedure(s): XR cervical spine 3V Accession Number(s): [id number] cc: Keya Vang MD Reason for Exam: [...] Skyler Sandoval MDin OV> 04/24/25 1444 DD/ 1425 TD/TT: 04/24/25 1429 Bridge Manager: Keya Vang MD IMG XR PROCEDURES Final Re sult * XR Shoulder 2+ Views Left (04/24/2025 2:10 PM EDT) Anatomical Region Laterality Modality Upper Extremities, Shoulder Left Radi ographic Imaging 04/24/2025 2:10 PM EDT Narrative 04/24/2025 2:48 PM EDT [address] [address] XRay Report Signed Patient: Lilliam Geller MR#: [id number] : 1965 Acct:[id number] Age/Sex: 59 / F ADM Date: 04/24/25 Loc: HO.[facility] Attending Dr: Keya Vang MD Ordering Physician: Keya Vang MD Date of Service: 04/24/25 Procedure(s): XR shoulder LT min 2V Accession Number(s): [id number] cc: Keya Vang MD Reason for Exam: [...] 04/24/25 1445 DD/ 1410 TD/TT: 04/24/25 1429 Bridge Manager: Procedure Note Donotuseinterpreter, Image - 04/24/[address] [address] XRay Report Signed Patient: Lilliam GellerMR#: [id number] : 1965Acct:[id number] Age/Sex: 59 / FADM Date: 04/24/25 Loc: HO.[facility] Attending Dr: Keya Vang MD Ordering Physician: Keya Vang MD Date of Service: 04/24/25 Procedure(s): XR shoulder LT min 2V Accession Number(s): [id number] cc: Keya Vang MD Reason for Exam: [...] 04/24/25 1445 DD/ 1410 TD/TT: 04/24/25 1429 Bridge Manager: us Keya Vang MD IMG XR PROCEDURES Final Re sult * POCT Glucose (04/14/2025 11:58 AM EDT) Only the most recent of3 resultswithin the time period is included. Glucose Blood, POC 165 60 - 200 mg/dL QC Media Lot # [id number] Lot# Expiration Date Comment:random Blood Capillary blood specimen / Unknown [...] PM EDT Narrative 03/24/2025 1:17 PM EDT [address] [address] XRay Report Signed Patient: Lilliam Geller MR#: [id number] : 1965 Acct:[id number] Age/Sex: 59 / F ADM Date: 03/24/25 [facility]: Dee Valenzuela MD Ordering Physician: Dee Valenzuela MD Date of Service: 03/24/25 Procedure(s): XR toe LT min 2V Accession Number(s): [id number] cc: Dee Valenzuela MD EXAMINATION: XR TOES [...] 03/24/25 1315 DD/ 1300 TD/TT: 03/24/25 1311 Bridge Manager: Procedure Note Donotuseinterpreter, Image - 03/24/[address] [address] XRay Report Signed Patient: Lilliam GellerMR#: [id number] : 1965Acct:[id number] Age/Sex: 59 / FADM Date: 03/24/25 Loc: HO.[facility] Attending Dr: Dee Valenzuela MD Ordering Physician: Dee Valenzuela MD Date of Service: 03/24/25 Procedure(s): XR toe LT min 2V Accession Number(s): [id number] cc: Dee Valenzuela MD EXAMINATION: XR TOES [...] 03/24/25 1315 DD/ 1300 TD/TT: 03/24/25 1311 Bridge Manager: us Dee Valenzuela MD IMG XR PROCEDURES Final Res ult * (ABNORMAL) Sed Rate by Modified Sherryren (03/24/2025 11:35 AM EDT) Erythrocyte Sedimentation Rate 31(H) 0 - 20 MM/HR [facility] Comment:Patients with polycy themia and many hemoglobin abnormalitiesmay have depressed sed rates whereas patients with anemiamay have elevated sed rates. Blood Venous blood specimen / Unknown 03/24/2025 11:35 AM EDT 03/24/2025 1:59 PM EDT us Dee Valenzuela MD LAB BLOOD ORDERABLES Final Result [facility] [address] [place] [phone] * (ABNORMAL) C-reactive Protein (03/24/2025 11:35 AM EDT) C Reactive Protein 2.53(H) < or = 0.50 mg/dL [facility] Blood Venous blood specimen / Unknown 03/24/2025 11:35 AM EDT 03/24/2025 1:59 PM EDT us Dee Valenzuela MD LAB BLOOD ORDERABLES Final Result Performing Organization Address [facility] Co de Phone Number [facility] [address] [place] [address] [phone] * (ABNORMAL) Uric acid (03/24/2025 11:35 AM EDT) Pathologist [facility] Uric Acid 6.3(H) 2.4 - 5.7 mg/dL [facility] Blood Venous blood specimen / Unknown 03/24/2025 11:35 AM EDT 03/24/2025 1:59 PM EDT us Dee Valenzuela MD LAB BLOOD ORDERABLES Final Result Performing Organization Address [facility] Co de Phone Number [facility] [address] [place] [phone] * Vitamin B12 (03/24/2025 11:35 AM EDT) Only the most recent of2 resultswithin the time period is included. Pathologist [facility] Vitamin B12 358 200 - 900 pg/mL [facility] Comment:NORMAL 200-900 PG/ML INDETERMINATE 160-199 PG/ML DEFICIENT < 160 PG/ML 03/24/2025 11:3 5 AM EDT 03/24/2025 1:59 PM EDT us Dee Valenzuela MD LAB BLOOD ORDERABLES Final Result Performing Organization Address [facility] Co de Phone Number [facility] [address] [place] [address] [phone] * (ABNORMAL) POCT HGB A1C (03/24/2025 11:03 AM EDT) Pathologist [facility] Hemoglobin A1C 6.5(A) 4.0 - 5.7 % QC Media Lot # [id number] Lot# Expiration Date Blood 03/24/2025 11:0 3 AM EDT us Dee Valenzuela MD POINT OF CARE TEST ENTER/ED IT ORDERABLES Final Result * (ABNORMAL) Hepatitis Panel, General (01/15/2025 9:56 AM EDT) Pathologist [facility] Hepatitis A IgM Nonreactive Nonreactive [facility] Comment:IgM antibodies to MARQUIS V not detected; does not exclude earlyacute or recovered HAV infection. ~Hepatitis B Surface Antibody NONREACTIVE Nonreactive [facility] Comment:Nonreactive: < 8.00 mIU/mL Hepatitis B Core Antibody Nonreactive Nonreactive [facility] Hepatitis C Antibody Reactive(A) Nonreactive [facility] Comment:Presumptive evidence of antibodies to HCV. Hepatitis B Surface Ag Negative Negative [facility] 01/15/2025 9:56 AM EDT 01/15/2025 9:56 AM EDT us Generic External Data Provider LAB BLOOD ORDERAB LES Final Result Performing Organization Address City/State/[facility] Co de Phone Number [facility] [address] [place] [phone] * Lipid Panel, Standard (01/11/2024 9:59 AM EDT) Triglycerides 126 <150 mg/dL [facility] Comment:Desirable Triglyceri de: less than 150 mg/dLBorderline High Triglyceride 150-199 mg/dLHigh Triglyceride: 200-499 mg/dLVery High Triglyceride: greater than or equal to 5OO mg/dL Cholesterol 153 <200 mg/dL [facility] Comment:Desirable Cholestero l: less than 200 mg/dLBorderline High Cholesterol: 200-239 mg/dLHigh Cholesterol: greater than 239 mg/dL LDL Cholesterol Calculated 58 <100 mg/dL [facility] Comment:Desirable LDL: less than 100 mg/dLNear Optimal/Above Optimal LDL: 110- 129 mg/dLBorderline High LDL: 130-159 mg/dLHigh LDL: 160-189 mg/dLVery High LDL: greater than or equal to 190 mg/dL HDL Cholesterol 70 >40 mg/dL [facility] Comment:Desirable HDL: great er than 40 mg/dL Note: This HDL assay may give artificially low results in patients with liver disease. Blood Venous blood specimen / Unknown 01/11/2024 9:59 AM EDT 01/11/2024 2:02 PM EDT us Dee Valenzuela MD LAB BLOOD ORDERABLES Final Result [facility] [address] [place] [phone] * DIGITAL BILATERAL SCREEN 1 (04/06/2018 [...] HPV mRNA E6/E7 Not Detected NOT DETECTED [facility] Comment: This test was performed using the APTIMA(R) HPV Assay ([employer] This assay detects E6/E7 viral messenger RNA (mRNA) from 14 high-risk HPV types (16,18,31,33,35,39,45,51, 52,56,58,59,66,68). For additional information please refer to: http://education.[employer].WITOI/faq/XIL254x8 (This link is being provided for informational/ educational purposes only.) Test Performed by Nuha Vega, [employer] [facility], [address] [place] [address] Curtis Subramanian M.D., Ph.D., Director of Laboratories , [place] [id number] Please note: Effective 04/18/2016, HPV testing will be performed using [employer]'s APTIMA test which targets mRNA. Detecting mRNA instead of DNA, as in older methods, offers significant improvements in specificity. 07/05/2016 9:30 AM EST [facility] HISTORICAL/NON ORDERABLE LABS Final Result [facility]where [address] from Last 3 Months or Most Recently Relevant to [place] [id number] [facility] STAND AD[place] Care Teams Signals Intelligence Superintendent Relationship Specialty Start Date End Date Dee Valenzuela MD [address] [place] [phone] PCP - General Internal Medicine 10/11/13 Aggie Campuzano PharmD [address] [place] [phone] Pharmacist Pharmacy 02/12/25
--- OUTSIDE RECORDS SUMMARY | 2025-04-26 20:14 | XMS_ITS | Encounter Summary ---
Author Organization [employer] Address [address] [facility] 7 [place] [address] Care Team Providers Care Cork Insulator Helper Name Role Phone Dee Valenzuela MD Primary Care Provider Aggie Campuzano PharmD Unavailable [phone] Reason for Visit * Reason Onset Date Comments Med Refill 04/08/2025 Encounter Details Date Type Department Care Team (Late st Contact Info) Description 04/08/2025 Refill [facility] [address] [place] [address] Dee Valenzuela MD [address] [place] [address] Closed nondisplaced fracture of phalanx of left [...] 50 MG tablet To be sent to: [facility] - [place], [place] - [address] [facility] documented in this encounter Plan of Treatment Upcoming Encounters Date Type Department Care Team (Late st Contact Info) Description 04/30/2025 10:30 AM EDT Medication Management [facility] [address] [place] [address] Aggie Campuzano, PharmD [address] [facility] [place] [address] documented as of this encounter Visit Diagnoses Diagnosis Closed nondisplaced fracture of phalanx of left great toe, unspecified phalanx, initial encounter- Primary documented in this encounter Additional Health Concerns Assessment Noted Time PHQ-9 Depression Total Score: 17 07/20/ 022 12:14 PM EST documented as of this encounter Care Teams Cork Insulator Helper Relationship Specialty Start Date End Date Dee Valenzuela MD [address] [place] [address] PCP - General Internal Medicine 10/11/13 Aggie Campuzano PharmD [address] [place] [address] Pharmacist Pharmacy 02/12/25 documented as of this encounter
--- OUTSIDE RECORDS SUMMARY | 2025-04-26 20:14 | XMS_ITS | Clinical Summary ---
Author Organization [facility] Address [address] [facility] [address] [place] [phone] Phone Care Team Providers Care Sequins Winder Name Role Phone Unavailable Primary Care Provider [...] Medical Devices Not on file Insurance [facility] [address] [place] [place] [address] C3 ACO Additional Source Comments The information contained in this document represents components of the legal health record. It is not the complete legal health record.[facility]
--- OUTSIDE RECORDS SUMMARY | 2025-04-26 20:14 | XMS_ITS | Encounter Summary ---
Author Organization [employer] Address [address] [facility] 7t [place] [address] Care Team Providers Care Checker In Name Role Phone Dee Valenzuela MD Primary Care Provider [phone] Aggie Campuzano PharmD Unavailable [phone] Reason for Visit * Reason Comments Med Refill Encounter Details Date Type Department Care Team (Late st Contact Info) Description 02/17/2025 Refill [facility] [address] [place] [address] Terese Izaguirre MD [address] [place] [address] Acute paronychia of finger of left hand; [...] 10:30 AM EDT Medication Management [facility] [address] [place] [address] Aggie Campuzano PharmD [address] [place] [address] documented as of this encounter Visit Diagnoses Diagnosis Acute paronychia of finger of left hand Cellulitis of left finger documented in this encounter Additional Health Concerns Assessment Noted Time PHQ-9 Depression Total Score: 17 022 12:14 PM EST documented as of this encounter Care Teams Checker In Relationship Specialty Start Date End Date Dee Valenzuela MD [address] [place] [address] PCP - General Internal Medicine 10/11/13 Aggie Campuzano, ClaraD [address] [place] [address] Pharmacist Pharmacy 02/12/25 documented as of this encounter
--- OUTSIDE RECORDS SUMMARY | 2025-04-26 20:14 | XMS_ITS | Encounter Summary ---
Author Organization [employer] Address [address] [facility] 7 [place] [address] Care Team Providers Care Sports Attorney Name Role Phone Dee Valenzuela MD Primary Care Provider [phone] Aggie Campuzano PharmD Unavailable [phone] Reason for Visit * Reason Onset Date Comments FYI 10/14/2024 Encounter Details Date Type Department Care Team ([facility] st Contact Info) Description 10/14/2024 Telephone [facility] CH[facility] MED & PEDS [address] [place], [place] [phone] Dee Valenzuela MD [address] [place], [place] [phone] Social History Tobacco Use Types Packs/Day Years [...] 10/15/2024 12:18 PM EDT Tc from [facility] with [facility] returning call to inform was unable to meet/reach pt today and will be trying again 10/16/24. * Telephone Encounter - Luisana Mcdaniel RN - 10/14/2024 1:28 PM EDT Noted * Telephone Encounter - Kamila Jain - 10/14/2024 1:17 PM EDT Tc from [facility] with [facility] calling to inform pt will be starting home care services tomorrow 10/15/24. documented in this encounter Plan of Treatment Upcoming Encounters Date Type Department Care Team (Late st Contact Info) Description 04/30/2025 10:30 AM EDT Medication Management [facility] MED & PEDS [address] [place] [address] Aggie Campuzano, Dexter [address] [place] [address] documented as of this encounter Visit Diagnoses Not on filedocumented in this encounter Additional Health Concerns Assessment Noted Time PHQ-9 Depression Total Score: 17 07/20/ 022 12:14 PM EST documented as of this encounter Care Teams Sports Attorney Relationship Specialty Start Date End Date Dee Valenzuela MD [address] [place] [address] PCP - General Internal Medicine 10/11/13 Aggie aCmpuzano PharmD [address] [place] [address] Pharmacist Pharmacy 02/12/25 documented as of this encounter
--- OUTSIDE RECORDS SUMMARY | 2025-04-26 20:14 | XMS_ITS | Encounter Summary ---
Author Organization [facility] Address [address] [place] [phone] Phone Care Team Providers Care Featheredge Machine Operator Name Role Phone Unavailable Primary Care Provider Unavailabl e Encounter Details Date Type Department Care Team (Latest Contact Info) Description 04/26/2018 Ancillary Orders [facility] [address] [place] [address] [place] [address] Saritha Dumont PA [address] [place] [address] Syncope and collapse Social History Tobacco Use [...] is not the complete legal health record.[facility]
--- OUTSIDE RECORDS SUMMARY | 2025-04-26 20:14 | XMS_ITS | Encounter Summary ---
Author Organization [employer] Address [address] [place] [address] [address], [place] [address] Care Team Providers Care Char Filter Tank Tender Name Role Phone Dee Valenzuela MD Primary Care Provider Aggie Campuzano PharmD Unavailable [phone] Reason for Referral * Consultation (Routine) - Authorized Specialty Diagnoses / Procedures Referred By [place] t Referred To Contact Pharmacy Diagnoses Type 2 diabetes mellitus without complication, without long-term current use of insulin (CMS/HCC) Dee Valenzuela MD [address] [place] [address] Phone: tel: fax: Referral ID Status Reason Start Date Expiration Date Visits Requested Visits Authorized [id number] Authorized Consult and Treat 01/15/2025 01/15/2026 6 6 Encounter Details Date Type Department Care Team (Late st Contact Info) Description 01/15/2025 Orders Only [facility] CHC MED & PEDS [address] [place] [address] Dee Valenzuela MD [address] [place] [address] Type 2 diabetes mellitus without complication, without [...] Description 04/30/2025 10:30 AM EDT Medication Management [facility] MED & PEDS [address] [place] [address] Aggie Campuzano, PharmD [address] [place] [address] Scheduled Referrals Name Type Priority Associated Diagnoses Orde r Schedule Referral to Pharmacy CDTM Outpatient Referral Routine Type 2 diabetes mellitus without complication, without long-term current use of insulin ([facility]) Ordered: 01/15/2025 documented as of this encounter Procedures Procedure Name Priority Date/Time Associated Diagnosis Comments T-SPOT(R).TB Routine 01/15/2025 9:56 AM EDT Type 2 diabetes mellitus without complication, without long-term current use of insulin ([facility]) documented in this encounter Results * T-SPOT??.TB (01/15/2025 9:56 AM EDT) T Spot TB Negative Negative [facility] Comment:A negative test resu lt [...] as aquantitative test. TS PANEL A 0 [facility] TS PANEL B 0 [facility] Negative Control Passed [facility] Positive Control Passed [facility] Comment:For additional infor sterling, please refer tohttp://education.[employer]/faq/EXX968(This link is being provided for informational/educational purposes only.)THIS TEST WAS PERFORMED AT:[facility] [id number] [place] [id number] BARTLETT MD,PHD 01/15/2025 9:56 AM EDT 01/15/2025 9:56 AM EDT us Generic External Data Provider LAB BLOOD ORDERAB LES Final Result [facility] [address] [place] [address] [phone] documented in this encounter Visit Diagnoses Diagnosis Type 2 diabetes mellitus without complication, without long-term current use of insulin ([facility])- Primary documented in this encounter Additional Health Concerns Assessment Noted Time PHQ-9 Depression Total Score: 17 022 12:14 PM EST documented as of this encounter Care Teams Char Filter Tank Tender Relationship Specialty Start Date End Date Dee Valenzuela MD [address] [place] [address] PCP - General Internal Medicine 10/11/13 Aggie Campuzano PharmD [address] [place] [address] Pharmacist Pharmacy 02/12/25 documented as of this encounter
--- OUTSIDE RECORDS SUMMARY | 2025-04-26 20:14 | XMS_ITS | Encounter Summary ---
Author Organization [employer] Address [address] [facility] [address] [place] [address] Care Team Providers Care Chemical Process Operator Name Role Phone Dee Valenzuela MD Primary Care Provider Aggie Campuzano PharmD Unavailable [phone] Encounter Details Date Type Department Care Team (Late st Contact Info) Description 04/14/2025 Orders Only [facility] CHC MED & PEDS [address] [place], [place] [phone] Dee Valenzuela MD [address] [place], [place] [phone] Social History Tobacco Use Types Packs/Day Years [...] 04/30/2025 10:30 AM EDT Medication Management [facility] MED & PEDS [address] [place] [address] Aggie Campuzano PharmD [address] [place] [address] documented as of this encounter Visit Diagnoses Not on filedocumented in this encounter Additional Health Concerns Assessment Noted Time PHQ-9 Depression Total Score: 0 04/14/20 3:23 PM EDT documented as of this encounter Care Teams Chemical Process Operator Relationship Specialty Start Date End Date Dee Valenzuela MD [address] [place] [address] PCP - General Internal Medicine 10/11/13 Aggie Campuzano PharmD [address] [place] [address] Pharmacist Pharmacy 02/12/25 documented as of this encounter
[2025-04-26 20:22] VITALS: BP 99/50; PULSE 91; RESP 14; O2SAT 97
[2025-04-26 21:37] VITALS: BP 119/73; PULSE 92; RESP 12
[2025-04-26] MEDS: HYDROcodone Bit/Acetam 5/325 TABLET 1 TAB PO (21:44)
[2025-04-26 22:13] VITALS: BP 119/73; PULSE 92; RESP 12; TEMP -17.7; TEMP 0
--- NOTE | 2025-04-26 22:13 | PC.NURSE ---
Pt left prior to receiving discharge instructions and paperwork.
== END 2025-04-26 22:14 | disposition home or self-care (01) ==
PROVIDERS: Physician Assistant Medical; Emergency Provider Emergency Medicine Emergency Medical Services
DX: M25.512 Pain in left shoulder (principal); I10 Essential (primary) hypertension; E11.9 Type 2 diabetes mellitus without complications; Z79.899 Other long term (current) drug therapy
CPT/HCPCS: 36415; 71046; 73030; 80048; 80076; 83735; 84484; 85025; 93005; 99284; 99285

== ENCOUNTER → 2025-04-26 19:16 | Outpatient (BNV) | payer MEDICARE, MEDICAID, SELFPAY | PROVIDERS: Emergency Provider Emergency Medicine Emergency Medical Services; Visit Provider Internal Medicine | DX: R07.89 Other chest pain (principal) | CPT/HCPCS: 93010 ==

== ENCOUNTER → 2025-04-26 19:17 | Outpatient (BNV) | payer MEDICARE, MEDICAID, SELFPAY | PROVIDERS: Emergency Provider Emergency Medicine Emergency Medical Services; Visit Provider Radiology Diagnostic Radiology | DX: R07.89 Other chest pain (principal); M25.512 Pain in left shoulder | CPT/HCPCS: 71046; 73030 ==

== ENCOUNTER 2025-05-06 15:15 | Outpatient (AMB) | payer MEDICARE, MEDICAID, SELFPAY ==
--- NOTE | 2025-05-06 15:21 | MHC.OFFVIS ---
Vital Signs 05/06/25 15:46 Height 5 ft 3 in Weight 268 lb BMI 47.5 BP 110/49 L Blood Pressure Location Rt brachial Position Sitting Pulse 85 Intake Visit Reasons: Follow up ER Intake Note: Lilliam presents to in office today in follow up for abd pain. CC:Patient c/o vomiting x5 days, abdominal pain and nausea. She also reports dizzinness. Per patient she went to the hospital but they did nothing for her. Humanities Department Chair Required: Yes Humanities Department Chair Language: [place] Citizen Accompanied by: Self / Same As Patient Allergies No Known Allergies Allergy (Verified 05/06/25 15:41) HPI HPI Follow up ER: Details: Assessment & Plan (1) GERD (gastroesophageal reflux disease): Code(s): K21.9 - Gastro-esophageal reflux disease without esophagitis Category: Medical Qualifiers: Esophagitis presence: without esophagitis Qualified Code(s): K21.9 - Gastro-esophageal reflux disease without esophagitis (2) Delayed gastric emptying: Code(s): K30 - Functional dyspepsia Category: Medical (3) Irritable bowel syndrome with both constipation and diarrhea: Comment: More CIC Code(s): K58.2 - Mixed irritable bowel syndrome Category: Medical (4) Encounter for colorectal cancer screening using Cologuard test: Comment: We have sent it out twice a day she says someone stealing it from her porch/male area will try again Code(s): Z12.11 - Encounter for screening for malignant neoplasm of colon; Z12.12 - Encounter for screening for malignant neoplasm of rectum Category: Medical Plan [place] Citizen #[place] Her current regimen consists of Dexilant, Creon, sucralfate, Colace, dicyclomine, bisacodyl, and Zofran. - The patient is a 59-year-old female presenting with nausea and shakiness secondary to hypoglycemia. - Symptoms of nausea and shakiness presented today. - The patient has not checked her blood sugar levels today. - Experienced an episode without proper dietary intake or insulin usage earlier. - Consumption of sugary arti aracelis has been noted. - Reported feeling worse, with more nausea and potential for vomiting. Given her hyperglycemic crisis we will cut this interval short today and continue her on her usual regimen. I want her to go home and eat something and take care of herself. She has a bottle of regular, sugared, arti aracelis and I encouraged her to drink more sips of it before she leaves our office to make sure she is well enough to leave. She does have family waiting for her in the waiting. Return office visit in 6 weeks to re-evaluate. Medications: Refilled vhctmj-[id number]-btzcopm 25,000-79,000- 105,000 unit (Zenpep) 2 caps PO BID 120 caps 12RF sucralfate 1 g PO DAILY 30 tabs 12RF bisacodyl 10 mg (2 x 5 mg) PO BEDTIME 180 tabs 1RF dexlansoprazole (Dexilant) 60 mg PO DAILY 30 caps 12RF 30 days K21.9 - Gastro-esophageal reflux disease without esophagitis dicyclomine 20 mg PO QID 120 tabs 12RF docusate sodium (Stool Softener) 100 mg PO DAILY 30 caps 12RF TODAY'S VISIT [place] Citizen # PFSH Medical History (Updated 05/06/25 @ 16:21 by NOLAN Bullock) Abdominal pain Low back pain Asthma exacerbation Hypoxemia Colon cancer screening Sinusitis COVID-19 COVID-19 Controlled substance agreement signed Medication monitoring encounter Velia albicans infection Lab test positive for detection of COVID-19 virus COVID-19 Left elbow pain Nausea Abdominal bloating Obesity Bacterial pneumonia COPD (chronic obstructive pulmonary disease) Arthritis Multinodular thyroid Tubular adenoma of colon Chronic fatigue Asthma Bleeding hemorrhoid IBS (irritable bowel syndrome) Vitamin D deficiency Graves disease Hyperlipidemia HTN (hypertension) Diabetes Lumbar radiculopathy Anemia Osteoarthritis Morbid obesity GERD (gastroesophageal reflux disease) Hepatitis C Surgical History Hx of colonoscopy History of esophagogastroduodenoscopy (EGD) Hx of appendectomy Hx of cholecystectomy Family History Mother Diabetes HTN (hypertension) CVD (cardiovascular disease) Heart problem Father Diabetes Brother Autism History of open heart surgery CVD (cardiovascular disease) Diabetes Son Diabetes Maternal Grandmother Diabetes Maternal Grandfather Diabetes Social History Household Members: Spouse, Children and Other Housing: Apartment Are you a primary child care nurse to a significant other at home: No Do you presently have visiting nurse or other home services: No Alcohol intake: never Patient Tobacco Use Status: Never used Tobacco service: No Current occupational status: unemployed and disabled Current occupation: rt handed Review of Systems Const Denies fatigue, Denies fever(s), Denies night sweats, Denies poor appetite and Denies weight loss ENT Reports Normal hearing present, Denies dental pain, Denies dysphagia, Denies hearing loss, Denies mouth pain, Denies odynophagia, Denies throat swelling, Denies tongue swelling and Reports other (Dentition adequate) Card Reports no additional complaints and Reports dyspnea on exertion Resp Reports dyspnea on exertion GI Details: Reports abdominal pain, Denies melena, Denies bloating, Denies hematochezia, Denies constipation, Denies GI cramping, Denies dysphagia, Denies excessive flatus, Denies early satiety, Reports heartburn, Denies diarrhea, Reports nausea, Denies odynophagia, Reports vomiting and Denies hematemesis Skin/Breast Denies pruritus, Denies lesions, Denies rash and Denies jaundice Neuro Reports Normal hearing present and Denies Abnormal speech present Endo Denies fatigue Aller/Immun Denies throat swelling and Denies tongue swelling Physical Exam Vital Signs: Last Vital Signs Pulse 85 05/06/25 15:46 BP 110/49 L 05/06/25 15:46 BMI result Body Mass Index 47.5 Const General: cooperative, no acute distress, well developed and well groomed Nutritional Appearance: well nourished and obese morbidly obese Orientation/consciousness: oriented to person, oriented to place and oriented to time Limitations: language barrier HEENT Head: Yes normocephalic and Yes atraumatic Eyes General: appearance normal, both eyes and all related structures Pupils: Equal, round and reactive pupils present Neck Neck: Yes normal visual inspection and Yes no lymphadenopathy Thyroid: Thyroid normal Resp Other: on portable oxygen Effort & Inspection: normal respiratory effort and able to speak in complete sentences Auscultation: diminished lung sounds Cardio Rate: regular rate Rhythm: regular rhythm Heart sounds: Normal, physiologic split S2 sound present Peripheral pulses: radial pulses present and posterior tibial pulses present GI Inspection: No distended, Yes Abdominal panniculus present and Yes obesity Palpation (GI): Soft to palpation, Tenderness to palpation present (GI) in the epigastrum, no guarding, not rigid and No hepatosplenomegaly present Percussion: Yes normal to percussion Auscultation: normal bowel sounds Rectal Exam - Female: deferred Skin General skin exam: no rashes or lesions noted, turgor normal, skin not dry, no jaundice, No spider nevi and no striae Rashes: no rashes Nails: normal Neuro General: oriented to person, oriented to place and oriented to time Cranial nerves: Yes Equal, round and reactive pupils present and Yes Normal hearing present Speech: No Abnormal speech present Extrem General: Yes normal to inspection, No clubbing, No cyanosis and No edema Psych Appearance: grossly normal and well kempt Mental Status: mental status grossly normal Speech and movement: Normal speech and movement present Affect: normal affect Attitude: cooperative Thought process: Normal thought process present and not confabulating Thought content: Normal thought content present Insight: Limited insight present (Psych) Judgement: Limited judgement present (Psych) Results Reviewed Results Reviewed: CT ABD AND PELVIS 09/16/23 Pancreas: Partial fatty atrophy of the pancreatic head. Potential minimal fat stranding surrounding the pancreatic head; however, this appears relatively similar to prior exams. Otherwise, the pancreas is normal in appearance. Assessment & Plan Assessment & Plan (1) Diabetes: Code(s): E11.9 - Type 2 diabetes mellitus without complications Category: Medical (2) Irritable bowel syndrome with both constipation and diarrhea: Comment: More CIC Code(s): K58.2 - Mixed irritable bowel syndrome Category: Medical (3) Delayed gastric emptying: Code(s): K30 - Functional dyspepsia Category: Medical (4) Nausea and vomiting: Code(s): R11.2 - Nausea with vomiting, unspecified Category: Medical (5) Abdominal pain: Code(s): R10.9 - Unspecified abdominal pain Category: Medical Plan Her current regimen consists of Dexilant, Creon, sucralfate, Colace, dicyclomine, bisacodyl, and Zofran. [place] Citizen #April Live SHE CALLED AND LEFT A MESSAGE saying she had abdominal pain and she presented to the [facility] ER but ?they did not do anything. ? however I look under [facility] records and all I find as an ER visit for dizziness for which they did a head CT. I do not know whether this was a miscommunication due to language barrier or something else. I asked her to come into the office since the last appointment we had to cut short because she had hypoglycemia. - The patient is a 59-year-old female presenting with nausea, epigastric pain and dizziness. 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 - Symptoms of nausea and sharp abdominal pain started five days prior to evaluation, impacting her ability to eat and resulting in increased dizziness due to an empty stomach. - Describes worsening symptoms when consuming food and reports persistent dizziness, particularly upon waking. - She is diabetic with previous blood work completed mentioning possible pancreatic inflammation and a cholecystectomy for gallstones. - There has been no significant change in her medications or exposure to illness recently. She says she has never experienced anything like this however it seems like we have test episodes of abdominal pain and nausea and vomiting. She has a diabetic so it is possible that this is worsening diabetic gastroparesis so I think a gastric emptying study would be prudent. However, in the meantime I am going to start her on Reglan 4 times a day to see if this offers her any relief. Given the finding of questionable fat stranding at the head of the pancreas I think it amylase and lipase would be prudent and a thyroid and a urinalysis as well. I did review all of the labs from [facility] which showed a generally unremarkable CBC and Chem panel. Return office visit in 4 weeks Orders: Orders Amylase Today R11.2 - Nausea with vomiting, unspecified UA CC w/rflx Micro + Cult Today R10.9 - Unspecified abdominal pain, R63.5 - Abnormal weight gain Lipase Today R11.2 - Nausea with vomiting, unspecified NM gastric emptying study Today R11.2 - Nausea with vomiting, unspecified TSH reflex Free T4 Today R10.9 - Unspecified abdominal pain, R63.5 - Abnormal weight gain Medications: New metoclopramide HCl (Reglan) 5 mg PO QIDACHS 120 tabs 3RF E11.9 - Type 2 diabetes mellitus without complications, K30 - Functional dyspepsia, K58.2 - Mixed irritable bowel syndrome, R11.2 - Nausea with vomiting, unspecified Coding Level of Care Code Est Pt Level 4 (18466) Diagnoses Diabetes E11.9 Irritable bowel syndrome with both constipation and diarrhea K58.2 Delayed gastric emptying K30 Nausea and vomiting R11.2 Abdominal pain R10.9 Time Spent (min) 37
[2025-05-06 15:46] VITALS: BP 110/49; PULSE 85; BMI 47.5
--- OUTSIDE RECORDS SUMMARY | 2025-05-06 16:34 | XMS_ITS | Encounter Summary ---
Author Organization [employer] Address [address] [facility] 7 [place] [address] Care Team Providers Care Appraisal Manager Name Role Phone Dee Valenzuela MD Primary Care Provider Aggie Campuzano PharmD Unavailable [phone] Reason for Visit * Reason Onset Date Comments Nurse Triage 04/28/2025 Encounter Details Date Type Department Care Team (Late st Contact Info) Description 04/28/2025 Telephone [facility] CHC MED & PEDS [address] [place], [place] [phone] Dee Valenzuela MD [address] [place], [place] [phone] Nurse Triage Social History Tobacco Use Types Packs/Day Years [...] encounter Miscellaneous Notes * Telephone Encounter - Sandhya García RN - 04/28/2025 11:19 AM EDT Triage call with [facility] [place] [id number]. Pt reports constant pain in right arm. Pt reports not just the elbow area, the whole arm . Pt denies cardiac pain. Pt reports this pain got worse 5 days ago and has been constant. Pain is not relieved with pain medication, ointments but, heat is effective. Pt denies radiation of pain to chest, hand. Neg for numbness. Pt reports mobility is decreased due to the pain and normal activities are diffi cult. Pt requests pain medication. Pt declines offer to be seen in [facility]. Pt is advised that a provider must see Pt before medications can be prescribed. Pt last seen in [facility] 04/24/25 for left shoulder pain. ASK apt with Dr. Hernández 04/29/25 @ 1100AM. Pt agrees with this disposition and is advised to continue to apply heat to the arm as much as possible. Insurance is verified as active prior to booking. Protocol Used: Arm Pain (Adult) Protocol-Based Disposition: See in Office or Video Visit within 3 Days Video visit not offered Positive Triage Question: * Moderate pain (e.g., interferes with normal activities) and present > 3 days * All higher-acuity triage questions were negative Care Advice Discussed: * Pain Medicines * Pain Medicines - Extra Notes and Warnings * Reasons To Call Back - Severe pain lasts over 2 hours after pain medicine - Moderate pain (such as interferes with normal activities) lasts more than 3 days - Mild pain lasts more than 7 days - Arm swelling occurs - Signs of infection occur (such as spreading redness, warmth, fever) - You become worse * Use Heat After 48 Hours for Pain * Telephone Encounter - Amos Whiteside - 04/28/2025 9:58 AM EDT Tc from pt reporting that she has chest pain. But its not any organ. Pt states that she might of hurt a muscular part in that area. Pt states the pain is 10/10. Contact pt at [phone] documented in this encounter Plan of Treatment Not on file documented as of this encounter Visit Diagnoses Not on filedocumented in this encounter Additional Health Concerns Assessment Noted Time PHQ-9 Depression Total Score: 0 04/14/20 3:23 PM EDT documented as of this encounter Care Teams Appraisal Manager Relationship Specialty Start Date End Date Dee Valenzuela MD [address] [place] [address] PCP - General Internal Medicine 10/11/13 Aggie Campuzano PharmD [address] [place] [address] Pharmacist Pharmacy 02/12/25 documented as of this encounter
--- OUTSIDE RECORDS SUMMARY | 2025-05-06 16:34 | XMS_ITS | Encounter Summary ---
Author Organization [employer] Address [address] [facility] [place] [address] Care Team Providers Care Piece Meat Trimmer Name Role Phone Dee Valenzuela MD Primary Care Provider Aggie Campuzano PharmD Unavailable [phone] Reason for Referral * Consultation (Routine) - Closed Specialty Diagnoses / Procedures Referred By Lurdes freeman Referred To Contact Orthopaedic Surgery Diagnoses Closed nondisplaced fracture of phalanx of left great toe, unspecified phalanx, initial encounter Dee Valenzuela MD 505 [place] [address] Phone: tel: fax: [facility] [address] [place] [address] [place] [address] Phone: tel: fax: Referral ID Status Reason Start Date Expiration Date V isits Requested Visits Authorized [id number] Closed Specialty Services Required 03/24/2025 03/24/2026 1 1 Encounter Details Date Type Department Care Team ([facility] st Contact Info) Description 03/24/2025 Orders Only [facility] CH[facility] MED & PEDS 505 [place], [place] [phone] Dee Valenzuela MD [address] [place], [place] [phone] Closed nondisplaced fracture of phalanx of left [...] on file documented as of this encounter Procedures Procedure Name Priority Date/Time Associated Diagnosis Comments AMB REFERRAL TO ORTHOPAEDIC SURGERY Routine 03/31/2025 Closed nondisplaced fracture of phalanx of left great toe, unspecified phalanx, initial encounter documented in this encounter Results * Referral to Orthopaedic Surgery (03/31/2025) Dee Valenzuela MD OUTPATIENT REFERRAL ORDERAB LES Final Result documented in this encounter Visit Diagnoses Diagnosis Closed nondisplaced fracture of phalanx of left great toe, unspecified phalanx, initial encounter- Primary documented in this encounter Additional Health Concerns Assessment Noted Time PHQ-9 Depression Total Score: 17 07/20/ 022 12:14 PM EST documented as of this encounter Care Teams Piece Meat Trimmer Relationship Specialty Start Date End Date Dee Valenzuela MD [address] [place] [address] PCP - General Internal Medicine 10/11/13 Aggie Campuzano PharmD [address] [place] [address] Pharmacist Pharmacy 02/12/25 documented as of this encounter
--- OUTSIDE RECORDS SUMMARY | 2025-05-06 16:34 | XMS_ITS | Encounter Summary ---
Author Organization [facility] Address [address] [place] [address] Phone Care Team Providers Care Machine Preservative Filler Name Role Phone Unavailable Primary Care Provider Unavailabl e Encounter Details Date Type Department Care Team (Late st Contact Info) Description 04/26/2018 Ancillary Orders [facility] [address] [place] [address] 3rd Floor, [address] [place] [address] Saritha Dumont PA [address] [place] [address] Social History Tobacco Use Types Packs/Day Years [...] is not the complete legal health record.[facility]
--- OUTSIDE RECORDS SUMMARY | 2025-05-06 16:34 | XMS_ITS | Encounter Summary ---
Author Organization [facility] Address [address] [place] [address] Phone Care Team Providers Care Retail Business Development Manager Name Role Phone Unavailable Primary Care Provider Unavailabl e Encounter Details Date Type Department Care Team (Latest Contact Info) Description 04/26/2018 Ancillary Orders [facility] [address] [place] [address] [place] [address] Saritha Dumont PA [address] [place] [address] Syncope and collapse Social History Tobacco Use [...] It is not the complete legal health record.[facility]
--- OUTSIDE RECORDS SUMMARY | 2025-05-06 16:34 | XMS_ITS | Encounter Summary ---
Author Organization [employer] Address 75 [facility] 7t [place] [address] Care Team Providers Care Accounting Systems Manager Name Role Phone Dee Valenzuela MD Primary Care Provider [phone] Aggie Campuzano PharmD Unavailable [phone] Reason for Visit * Reason Comments Med Refill Encounter Details Date Type Department Care Team (Late st Contact Info) Description 02/17/2025 Refill [facility] 230 [place] [address] Terese Izaguirre MD 230 [place] [address] Acute paronychia of finger of left hand; [...] documented as of this encounter Care Teams Accounting Systems Manager Relationship Specialty Start Date End Date Dee Valenzuela MD 505 [place] [address] PCP - General Internal Medicine 10/11/13 Aggie Campuzano PharmD [address] [place] [address] Pharmacist Pharmacy 02/12/25 documented as of this encounter
--- OUTSIDE RECORDS SUMMARY | 2025-05-06 16:34 | XMS_ITS | Encounter Summary ---
Author Organization [employer] Address 75 [facility] 7t [place] [address] Care Team Providers Care Earth Burner Name Role Phone Dee Valenzuela MD Primary Care Provider Aggie Campuzano PharmD Unavailable [phone] Reason for Visit * Reason Comments Med Refill Encounter Details Date Type Department Care Team (Late st Contact Info) Description 02/17/2025 Refill [facility] MED[facility]INE 230 [place] [address] Dee Valenzuela MD [address] [place] [address] Seborrheic dermatitis Social History Tobacco Use Types [...] documented as of this encounter Care Teams Earth Burner Relationship Specialty Start Date End Date Dee Valenzuela MD [address] [place] [address] PCP - General Internal Medicine 10/11/13 Aggie Campuzano PharmD [address] [place] [address] Pharmacist Pharmacy 02/12/25 documented as of this encounter
--- OUTSIDE RECORDS SUMMARY | 2025-05-06 16:34 | XMS_ITS | Encounter Summary ---
Author Organization [employer] Address 75 [facility] 7 [place] [address] Care Team Providers Care Cardiographer Name Role Phone Dee Valenzuela MD Primary Care Provider Aggie Campuzano PharmD Unavailable [phone] Reason for Visit * Reason Onset Date Comments FYI 10/14/2024 Encounter Details Date Type Department Care Team ([facility] st Contact Info) Description 10/14/2024 Telephone [facility] CHC MED & PEDS 505 [place], [place] [phone] Dee Valenzuela MD 505 [place], [place] [phone] Social History Tobacco Use Types Packs/Day Years [...] - 10/15/2024 12:18 PM EDT Tc from [facility] with [facility] returning call to inform was unable to meet/reach pt today and will be trying again 10/16/24. * Telephone Encounter - Luisana Mcdaniel RN - 10/14/2024 1:28 PM EDT Noted * Telephone Encounter - Kamila Jain - 10/14/2024 1:17 PM EDT Tc from [facility] with [facility] calling to inform pt will be starting home care services tomorrow 10/15/24. documented in this encounter Plan of Treatment Not on file documented as of this encounter Visit Diagnoses Not on filedocumented in this encounter Additional Health Concerns Assessment Noted Time PHQ-9 Depression Total Score: 17 07/20/ 022 12:14 PM EST documented as of this encounter Care Teams Cardiographer Relationship Specialty Start Date End Date Dee Valenzuela MD 505 [place] [address] PCP - General Internal Medicine 10/11/13 Aggie Campuzano PharmD [address] [place] [address] Pharmacist Pharmacy 02/12/25 documented as of this encounter
--- OUTSIDE RECORDS SUMMARY | 2025-05-06 16:34 | XMS_ITS | Encounter Summary ---
Author Organization [employer] Address [address] [place] [address] [place] [address] Care Team Providers Care Accounting Methods Analyst Name Role Phone Dee Valenzuela MD Primary Care Provider Aggie Campuzano PharmD Unavailable [phone] Reason for Referral * Consultation (Routine) - Authorized Specialty Diagnoses / Procedures Referred By [place] t Referred To Contact Pharmacy Diagnoses Type 2 diabetes mellitus without complication, without long-term current use of insulin (HCC) Dee Valenzuela MD [address] [place] [address] Phone: tel: fax: Referral ID Status Reason Start Date Expiration Date Visits Requested Visits Authorized [id number] Authorized Consult and Treat 01/15/2025 01/15/2026 6 6 Encounter Details Date Type Department Care Team (Late st Contact Info) Description 01/15/2025 Orders Only [facility] CHC MED & PEDS 505 [place], [place] [phone] Dee Valenzuela MD [address] [place], [place] [phone] Type 2 diabetes mellitus without complication, without [...] as of this encounter Plan of Treatment Scheduled Referrals Name Type Priority Associated Diagnoses Orde r Schedule Referral to Pharmacy CDTM Outpatient Referral Routine Type 2 diabetes mellitus without complication, without long-term current use of insulin (CMS/HCC) Ordered: 01/15/2025 documented as of this encounter Procedures Procedure Name Priority Date/Time Associated Diagnosis Comments T-SPOT(R).TB Routine 01/15/2025 9:56 AM EDT Type 2 diabetes mellitus without complication, without long-term current use of insulin (CMS/HCC) documented in this encounter Results * T-SPOT??.TB (01/15/2025 9:56 AM EDT) T Spot TB Negative Negative [facility] Comment:A negative test resu lt [...] as aquantitative test. TS PANEL A 0 [facility] TS PANEL B 0 [facility] Negative Control Passed [facility] Positive Control Passed [facility] Comment:For additional infor mation, please refer [email or web address]/faq/[email or web address](This link is being provided for informational/educational purposes only.)THIS TEST WAS PERFORMED AT:[employer] [id number] [place] [address]ASZGJKFLADAN BARTLETT MD,PHD 01/15/2025 9:56 AM EDT 01/15/2025 9:56 AM EDT us Generic External Data Provider LAB BLOOD ORDERAB LES Final Result [facility] [address] [place] [phone] documented in this encounter Visit Diagnoses Diagnosis Type 2 diabetes mellitus without complication, without long-term current use of insulin (HCC)- Primary documented in this encounter Additional Health Concerns Assessment Noted Time PHQ-9 Depression Total Score: 17 12/14/2 022 12:14 PM EST documented as of this encounter Care Teams Accounting Methods Analyst Relationship Specialty Start Date End Date Dee Valenzuela MD [address] [place] [address] PCP - General Internal Medicine 10/11/13 Aggie Campuzano PharmD [address] [place] [address] Pharmacist Pharmacy 02/12/25 documented as of this encounter
--- OUTSIDE RECORDS SUMMARY | 2025-05-06 16:34 | XMS_ITS | Encounter Summary ---
Author Organization [employer] Address 75 [facility] 7t [place] [address] Care Team Providers Care Soil Expert Name Role Phone Dee Valenzuela MD Primary Care Provider Aggie Campuzano PharmD Unavailable [phone] Encounter Details Date Type Department Care Team (Late st Contact Info) Description 11/29/2024 Orders Only [facility] CHC MED & PEDS 505 [place], [place] [phone] Dee Valenzuela MD 505 [place], [place] [phone] Type 2 diabetes mellitus without complication, without long-term current use of insulin (CMS/[facility]) Social History Tobacco Use Types Packs/Day [...] without long-term current use of insulin (HCC) documented in this encounter Additional Health Concerns Assessment Noted Time PHQ-9 Depression Total Score: 17 022 12:14 PM EST documented as of this encounter Care Teams Soil Expert Relationship Specialty Start Date End Date Dee Valenzuela MD 505 [place] [address] PCP - General Internal Medicine 10/11/13 Aggie Campuzano PharmD 230 [place] [address] Pharmacist Pharmacy 02/12/25 documented as of this encounter
--- OUTSIDE RECORDS SUMMARY | 2025-05-06 16:34 | XMS_ITS | Encounter Summary ---
Author Organization [employer] Address 75 [facility] 7t [place] [address] Care Team Providers Care Inclinometer Tester Name Role Phone Dee Valenzuela MD Primary Care Provider Aggie Campuzano PharmD Unavailable [phone] Encounter Details Date Type Department Care Team (Late st Contact Info) Description 01/12/2024 Orders Only [facility] CHC MED & PEDS 505 [place], [place] [phone] Dee Valenzuela MD 505 [place], [place] [phone] Iron deficiency (Primary Dx) Social History Tobacco [...] of this encounter Plan of Treatment Scheduled Orders Name Type Priority Associated Diagnoses [...] documented as of this encounter Care Teams Inclinometer Tester Relationship Specialty Start Date End Date Dee Valenzuela MD 505 [place] [address] PCP - General Internal Medicine 10/11/13 Aggie Campuzano PharmD 230 [place] [address] Pharmacist Pharmacy 02/12/25 documented as of this encounter
--- OUTSIDE RECORDS SUMMARY | 2025-05-06 16:34 | XMS_ITS | Encounter Summary ---
Author Organization [employer] Address 75 [facility] 7t [place] [address] Care Team Providers Care Hand Gluer And Slicer Name Role Phone Dee Valenzuela MD Primary Care Provider [phone] Aggie Campuzano PharmD Unavailable [phone] Encounter Details Date Type Department Care Team ([facility] st Contact Info) Description 07/22/2024 Orders Only [facility] CHC MED & PEDS 505 [place], [place] [phone] Dee Valenzuela MD 505 [place], [place] [phone] Social History Tobacco Use Types Packs/Day Years [...] documented as of this encounter Care Teams Hand Gluer And Slicer Relationship Specialty Start Date End Date Dee Valenzuela MD 505 [place] [address] PCP - General Internal Medicine 10/11/13 Aggie Campuzano PharmD 230 [place] [address] Pharmacist Pharmacy 02/12/25 documented as of this encounter
--- OUTSIDE RECORDS SUMMARY | 2025-05-06 16:34 | XMS_ITS | Encounter Summary ---
Author Organization [employer] Address 75 [facility] 7t [place] [address] Care Team Providers Care Meteorological Observer Name Role Phone Dee Valenzuela MD Primary Care Provider Aggie Campuzano PharmD Unavailable [phone] Encounter Details Date Type Department Care Team (Late st Contact Info) Description 07/02/2024 Orders Only [facility] CHC MED & PEDS 505 [place], [place] [phone] Dee Valenzuela MD 505 [place], [place] [phone] Type 2 diabetes mellitus without complication, without long-term current use of insulin (CMS/HCC); Type 2 diabetes mellitus with hyperglycemia ([facility]/HCC) Social History Tobacco Use Types Packs/Day Years [...] without long-term current use of insulin (HCC) Type 2 diabetes mellitus with hyperglycemia (HCC) documented in this encounter Additional Health Concerns Assessment Noted Time PHQ-9 Depression Total Score: 17 022 12:14 PM EST documented as of this encounter Care Teams Meteorological Observer Relationship Specialty Start Date End Date Dee Valenzuela MD 505 [place] [address] PCP - General Internal Medicine 10/11/13 Aggie Campuzano PharmD 230 [place] [address] Pharmacist Pharmacy 02/12/25 documented as of this encounter
--- OUTSIDE RECORDS SUMMARY | 2025-05-06 16:34 | XMS_ITS | Encounter Summary ---
Author Organization [employer] Address 75 [facility] 7 [place] [address] Care Team Providers Care Fish And Wildlife Technician Name Role Phone Dee Valenzuela MD Primary Care Provider Aggie Campuzano PharmD Unavailable [phone] Reason for Visit * Reason Onset Date Comments Med Refill 04/08/2025 Encounter Details Date Type Department Care Team (Late st Contact Info) Description 04/08/2025 Refill [facility] MEDICINE 230 [place] [address] Dee Valenzuela MD 505 [place] [address] Closed nondisplaced fracture of phalanx of left [...] 50 MG tablet To be sent to: [facility] - [place], [place] - [address] [place] [address] documented in this encounter Plan of Treatment Not on file documented as of this encounter Visit Diagnoses Diagnosis Closed nondisplaced fracture of phalanx of left great toe, unspecified phalanx, initial encounter- Primary documented in this encounter Additional Health Concerns Assessment Noted Time PHQ-9 Depression Total Score: 17 07/20/ 022 12:14 PM EST documented as of this encounter Care Teams Fish And Wildlife Technician Relationship Specialty Start Date End Date Dee Valenzuela MD [address] [place] [address] PCP - General Internal Medicine 10/11/13 Aggie Campuzano PharmD [address] [place] [address] Pharmacist Pharmacy 02/12/25 documented as of this encounter
--- OUTSIDE RECORDS SUMMARY | 2025-05-06 16:34 | XMS_ITS | Encounter Summary ---
Author Organization [employer] Address 75 [facility] 7t [place] [address] Care Team Providers Care Manager Commodities Name Role Phone Dee Valenzuela MD Primary Care Provider Aggie Campuzano PharmD Unavailable [phone] Encounter Details Date Type Department Care Team (Late st Contact Info) Description 04/29/2024 Orders Only [facility] CHC MED & PEDS 505 [place], [place] [phone] Dee Valenzuela MD 505 [place], [place] [phone] Type 2 diabetes mellitus without complication, without [...] documented as of this encounter Care Teams Manager Commodities Relationship Specialty Start Date End Date Dee Valenzuela MD 505 [place] [address] PCP - General Internal Medicine 10/11/13 Aggie Campuzano PharmD 230 [place] [address] Pharmacist Pharmacy 02/12/25 documented as of this encounter
--- OUTSIDE RECORDS SUMMARY | 2025-05-06 16:34 | XMS_ITS | Encounter Summary ---
Author Organization [employer] Address 75 [facility] 7t [place] [address] Care Team Providers Care Spine Surgeon Name Role Phone Dee Valenzuela MD Primary Care Provider Aggie Campuzano PharmD Unavailable [phone] Reason for Visit * Reason Onset Date Comments Appointment Request 04/02/2024 Encounter Details Date Type Department Care Team (Late st Contact Info) Description 04/02/2024 Telephone [facility] MEDICINE 230 [place] [address] Dee Valenzuela MD [address] [place] [address] Appointment Request Social History Tobacco Use Types [...] documented as of this encounter Care Teams Spine Surgeon Relationship Specialty Start Date End Date Dee Valenzuela MD [address] [place] [address] PCP - General Internal Medicine 10/11/13 Aggie Campuzano PharmD 230 [place] [address] Pharmacist Pharmacy 02/12/25 documented as of this encounter
--- OUTSIDE RECORDS SUMMARY | 2025-05-06 16:34 | XMS_ITS | Encounter Summary ---
Author Organization [employer] Address 75 [facility] 7t [place] [address] Care Team Providers Care Green Lumber Grader Name Role Phone Dee Valenzuela MD Primary Care Provider Aggie Campuzano PharmD Unavailable [phone] Encounter Details Date Type Department Care Team (Late st Contact Info) Description 04/14/[address] [facility] CHC MED & PEDS 505 [place], [place] [phone] Dee Valenzuela MD 505 [place], [place] [phone] Social History Tobacco Use Types Packs/Day Years [...] documented as of this encounter Care Teams Green Lumber Grader Relationship Specialty Start Date End Date Dee Valenzuela MD [address] [place] [address] PCP - General Internal Medicine 10/11/13 Aggie Campuzano PharmD [address] [place] [address] Pharmacist Pharmacy 02/12/25 documented as of this encounter
--- OUTSIDE RECORDS SUMMARY | 2025-05-06 16:34 | XMS_ITS | Clinical Summary ---
Author Organization [facility] Address [address] [place] [address] Care Team Providers Care Swimming Teacher Name Role Phone Unavailable Primary Care Provider [...]
--- OUTSIDE RECORDS SUMMARY | 2025-05-06 16:34 | XMS_ITS | Encounter Summary ---
Author Organization [employer] Address 75 [facility] 7t [place] [address] Care Team Providers Care Machine Sewer Name Role Phone Dee Valenzuela MD Primary Care Provider Aggie Campuzano PharmD Unavailable [phone] Reason for Visit * Reason Onset Date Comments returning call 07/20/2022 Encounter Details Date Type Department Care Team ([facility] st Contact Info) Description 07/20/2022 Telephone [facility] CHC MED & PEDS 505 [place], [place] [phone] Dee Valenzuela MD 505 [place], [place] [phone] returning call Social History Tobacco Use Types [...] documented as of this encounter Care Teams Machine Sewer Relationship Specialty Start Date End Date Dee Valenzuela MD [address] [place] [address] PCP - General Internal Medicine 10/11/13 Aggie Campuzano PharmD [address] [place] [address] Pharmacist Pharmacy 02/12/25 documented as of this encounter
--- OUTSIDE RECORDS SUMMARY | 2025-05-06 16:34 | XMS_ITS | Clinical Summary ---
Author Organization [facility] Address [address] [facility] [address] [place] [address] Phone Care Team Providers Care Coating Machine Feeder Name Role Phone Unavailable Primary Care Provider [...] Medical Devices Not on file Insurance [facility] [place] [place] [address] [place] [address] C3 ACO Additional Source Comments The information contained in this document represents components of the legal health record. It is not the complete legal health record.[facility]
--- OUTSIDE RECORDS SUMMARY | 2025-05-06 16:34 | XMS_ITS | Clinical Summary ---
Author Organization [employer] Address [address] [place] [address] 7[address] [place] [address] Care Team Providers Care Doctor Assistant Name Role Phone Dee Valenzuela MD Primary Care Provider Aggie Campuzano PharmD Unavailable [phone] Allergies Active Allergy Reactions Criticality Noted Date [...] 1 023 Active Blood Glucose Monitoring Suppl (SnowShoe Stamp Verio Flex System) device Inject 1 Units under the skin 3 times daily. Test blood sugar as directed 1 each 023 Active Lancets (SnowShoe Stamp Delica Plus [id number]) miscIndications: Type 2 diabetes mellitus with hyperglycemia ([facility]) To check the blood sugar once a day 90 each 3 024 Active buPROPion XL (Wellbutrin XL) 300 MG 24 hr tablet Take 1 tablet by mouth in the morning. Active lamoTRIgine (LaMICtal) 200 MG tablet Take 1 tablet by mouth at bedtime. 025 Active mirtazapine (Remeron) 30 MG tablet Take 1 tablet by mouth at bedtime. 024 Active Zenpep 26271-79086 units capsule delayed-release particles capsule Take 2 capsules by mouth 2 times daily. WITH MEALS OR SNACK 025 Active glucose 4 g chewable tabletIndication s:Type 2 diabetes mellitus with hyperglycemia, without long-term current use of insulin (HCC) Chew 4 tablets (16 g) if needed for low blood sugar. 50 tablet 12 025 2025 Active losartan (Cozaar) 100 MG tabletIndication s:Primary hypertension Take 1 tablet (100 mg) by mouth Once per day. 30 tablet 11 025 2025 Active dicyclomine (Bentyl) 20 MG tablet TAKE 1 TABLET BY MOUTH BEFORE MEALS AND AT BEDTIME 120 tablet 2 025 Active Fasenra Pen 30 MG/ML injection Active [...] 90 tablet 1 025 Active Continuous Glucose Die Sinking Machine Operator (FreeStyle Juan Ramon 3 [place]) deviceIndication s:Type 2 diabetes mellitus without complication, without long-term current use of insulin (HCC) 1 each Once per day. Use as directed for CGM 1 each Active Continuous Glucose Sensor (FreeStyle Juan Ramon 3 Plus Sensor) miscIndications: Type 2 diabetes mellitus without complication, without long-term current use of insulin (HCC) 1 each every 15 days. Apply 1 [...] hyperglycemia, without long-term current use of insulin ([facility]) Take ONE tablet in the morning and TWO tablets in the evening 90 tablet 1 025 Active glucose blood (OneTouch Verio) test stripIndications :Type 2 diabetes mellitus without complication, without long-term current use of insulin ([facility]) To test the blood sugar 3 times a day 100 each 3 025 Active Trulicity 3 MG/0.5ML solution auto-injectorInd ications:Type 2 diabetes mellitus with hyperglycemia, without long-term current use of insulin ([facility]) INJECT ONE PEN (= 3MG) SUBCUTANEOUSLY ONCE [...] by . 15 patch 2 025 Active lidocaine (Xylocaine) 5 % ointmentIndicati ons:Left elbow pain Apply topically Once per day. 60 g 3 025 Active Diclofenac Sodium 1 % gelIndications:A cute pain of left shoulder To apply to the affected area 4 times a day. 100 g 025 Active tiZANidine (Zanaflex) 2 MG tabletIndication s:Acute pain of left shoulder Take 1 tablet (2 mg) by mouth every 6 (six) hours if needed for muscle spasms for up to 10 days. 30 tablet 025 2024 Active traMADol (Ultram) 50 MG tablet Take 50 mg by mouth every 6 (six) hours if needed for severe pain. 2024 Discontinued(R eorder (will not trigger notification to Pharmacy)) lidocaine (Xylocaine) 5 % ointmentIndicati ons:Left elbow [...] eorder (will not trigger notification to Pharmacy)) tiZANidine (Zanaflex) 2 MG tabletIndication s:Acute pain of left shoulder Take 1 tablet (2 mg) by mouth every 6 (six) hours if needed for muscle spasms for up to 10 days. 30 tablet 025 2024 Discontinued(R eorder (will not trigger notification to Pharmacy)) Hospital, Clinic, or Other Facility Administered Medication Ordered Dose Route Frequency Start Date End Date Status ketorolac (Toradol) injection 30 mgIndications:Acute pain of left shoulder 30 mg IM Once 04/29/2025 04/29/2025 Ended Active Problems Problem Noted Date Diagnosed Date [...] (10/17/2024): More CIC Gastroparesis 09/11/2024 COPD exacerbation ([facility]) 09/03/2024 Assessment & Plan (09/03/2024 6:59 PM [...] deficiency 07/19/2022 Hypertensive disorder 07/19/2022 Rheumatoid arthritis ([facility]) 11/01/2019 Hemorrhoids 07/05/2016 Type 2 diabetes mellitus, [...] apnea syndrome 10/17/2024 11/21/2024 Severe chronic obstructive p ulmonary disease ([facility]) 07/25/2013 11/21/2024 Encounters Date Type Department Care Team Description 04/29/2025 2:40 PM EDT Office Visit [facility] [address] [place] [address] Dee Valenzuela MD Acute pain of left shoulder (Primary Dx) 04/29/2025 Travel 04/28/2025 Telephone [facility] [address] [place] [address] Dee Valenzuela MD Nurse Triage 04/24/2025 1:20 PM EDT Office Visit [facility] [address] [place] [address] Keya Vang MD Acute pain of left shoulder (Primary Dx); Left cervical radiculopathy 04/24/2025 Refill [facility] [address] [place] [address] Dee Valenzuela MD Left elbow pain 04/24/2025 Travel 04/15/2025 Telephone [facility] [address] [place] [address] Dee Valenzuela MD Care Coordination 04/14/2025 11:15 AM EDT Office Visit [facility] [address] [place] [address] Dee Valenzuela MD Closed nondisplaced fracture of phalanx of left great toe, unspecified phalanx, initial encounter (Primary Dx); Type 2 diabetes mellitus with other specified complication, with long-term current use of insulin ([facility]) 04/14/2025 Orders Only [facility] [address] [place] [address] Dee Valenzuela MD 04/14/2025 Telephone [facility] [address] [place] [address] Dee Valenzuela MD 04/14/2025 Travel 04/11/2025 Telephone [facility] [address] [place] [address] Dee Valenzuela MD chart prep 04/08/2025 Refill [facility] [address] [place] [phone] Dee Valenzuela MD Closed nondisplaced fracture of phalanx of left great toe, unspecified phalanx, initial encounter (Primary Dx) 04/08/2025 Refill [facility] [address] [place] [address] Dee Valenzuela MD Nondisplaced unspecified fracture of left great toe, initial encounter for closed fracture; Closed nondisplaced fracture of phalanx of left great toe, unspecified phalanx, initial encounter 04/03/2025 Refill [facility] [address] [place] [address] Dee Valenzuela MD Primary hypertension 03/28/2025 Refill [facility] [address] [place] [address] Dee Valenzuela MD Type 2 diabetes mellitus with hyperglycemia, without long-term current use of insulin ([facility]) 03/27/2025 Results Follow-Up [facility] [address] [place] [address] Elisha Villeda RN XR Toes 2+ Left, POCT Glucose, POCT HGB A1C, Additional followed-up results: 3 03/26/2025 Telephone [facility] [address] [place] [address] Dee Valenzuela MD Medication Question 03/26/2025 Travel 03/25/[address] [address] Dee Valenzuela MD Durable Medical Equipment 03/24/2025 10:45 AM EDT Office Visit [facility] [address] [place] [address] Dee Valenzuela MD Primary hypertension (Primary Dx); Type 2 diabetes mellitus with other specified complication, with long-term current use of insulin ([facility]); Great toe pain, left; Closed nondisplaced fracture of phalanx of left great toe, unspecified phalanx, initial encounter 03/24/2025 Orders Only [facility] [address] [place] [address] Dee Valenzuela MD Closed nondisplaced fracture of phalanx of left great toe, unspecified phalanx, initial encounter (Primary Dx) 03/24/2025 Orders Only [facility] [address] [place] [address] Dee Valenzuela MD 03/24/2025 Travel 03/21/2025 Telephone [facility] [address] [place] [address] Dee Valenzuela MD chart prep 03/09/2025 Refill [facility] [address] [place] [address] Dee Valenzuela MD Vitamin deficiency 03/08/2025 Refill [facility] [address] [place] [address] Dee Valenzuela MD Type 2 diabetes mellitus with hyperglycemia, without long-term current use of insulin ([facility]); Vitamin deficiency 02/27/2025 Refill [facility] [address] [place] [address] Dee Valenzuela MD Seborrheic dermatitis 02/17/2025 Refill [facility] [address] [place] [address] Dee Valenzuela MD Seborrheic dermatitis 02/17/2025 Refill [facility] [address] [place] [address] Terese Izaguirre MD Acute paronychia of finger of left hand; Cellulitis of left finger 02/13/2025 Refill [facility] [address] [place] [address] Laya Hernández MD Left elbow pain 02/12/2025 Travel 02/11/2025 Refill [facility] [address] [place] [address] Dee Valenzuela MD 02/05/2025 Refill [facility] [address] [place] [address] Dee Valenzuela MD Primary hypertension from Last 3 Months Immunizations Immunization Administration [...] Sign Reading Time Taken Comments Blood Pressure 142/76 04/29/2025 2:15 PM EDT Pulse 87 04/29/2025 2:15 PM EDT Temperature 36.7 C (98.1 F) 04/24/2025 1:23 PM EDT Respiratory Rate 20 04/29/2025 2:15 PM EDT Oxygen Saturation 93% 04/29/2025 2:15 PM EDT Inhaled Oxygen Concentration - - Weight 120 kg (265 lb) 04/29/2025 2:15 PM EDT Height 156.2 cm (5' 1.5 ) 04/29/2025 2:15 PM EDT Body Mass Index 49.26 04/29/2025 2:15 PM EDT Plan of Treatment Health Maintenance Due Date [...] 05/24/2025 11/21/2024, 05/22/2008 Diabetes: Hemoglobin A1C 09/24/2025 08 025, 12/18/2024, 09/11/2024, Additional history exists SDOH Screening 12/11/2025 12/11/2024 Diabetes: Foot Exam 12/18/2025 12/18/2024 Alcohol/Substance Use Screening 04/14/2026 04/14/2025 Depression Screening 04/14/2026 04/14/2025, 04/14/20 Tobacco Screening 04/24/2026 04/24/2025 Dental X-Ray: Full [...] with long-term current use of insulin (CMS/HCC) AMB REFERRAL TO ORTHOPAEDIC SURGERY Routine 03/31/2025 [...] with long-term current use of insulin (CMS/HCC) HEPATITIS PANEL, GENERAL Routine 01/15/2025 9:56 AM EDT PANORAMIC RADIOGRAPHIC IMAGE Routine 11/21/2024 9:00 AM EDT PERIODIC ORAL EVALUATION - ESTABLISHED PATIENT Routine 11/21/2024 9:00 AM EDT LIPID PANEL, STANDARD Routine 01/11/2024 9:59 AM EDT Type 2 diabetes mellitus without complication, without long-term current use of insulin ([facility]) BI MAMMOGRAM SCREENING BILATERAL Routine 04/06/2018 12:49 PM EDT ZZZ HISTORICAL HPV MRNA E6/E7 Routine 07/05/2016 9:30 AM EST from Last 3 Months or Most Recently Relevant to Health Maintenance Results * XR CERVICAL SPINE 3V (04/24/2025 2:25 PM EDT) Anatomical Region Laterality Modality Abdomen Radiographic Agatha ging 04/24/2025 2:25 PM EDT Narrative 04/24/2025 2:47 PM EDT [address] [address] XRay Report Signed Patient: Lilliam Geller MR#: [id number] : 1965 Acct:[id number] Age/Sex: 59 / F ADM Date: 04/24/25 Loc: [facility] Attending Dr: Keya Vang MD Ordering Physician: Keya Vang MD Date of Service: 04/24/25 Procedure(s): XR cervical spine 3V Accession Number(s): [id number] cc: Keya Vang MD Reason for Exam: [...] 04/24/25 1444 DD/ 1425 TD/TT: 04/24/25 1429 Sweat Band Sewer: Procedure Note Donotuseinterpreter, Image - 04/24/[address] [address] XRay Report Signed Patient: Lilliam GellerMR#: [id number] : 1965Acct:[id number] Age/Sex: 59 / FADM Date: 04/24/25 [facility]: Keya Vang MD Ordering Physician: Keya Vang MD Date of Service: 04/24/25 Procedure(s): XR cervical spine 3V Accession Number(s): [id number] cc: Keya Vang MD Reason for Exam: [...] Skyler Sandoval MDin OV> 04/24/25 1444 DD/ 142 TD/TT: 04/24/25 142 Sweat Band Sewer: Keya Vang MD IMG XR PROCEDURES Final Re sult * XR Shoulder 2+ Views Left (04/24/2025 2:10 PM EDT) Anatomical Region Laterality Modality Upper Extremities, Shoulder Left Radi ographic Imaging 04/24/2025 2:10 PM EDT Narrative 04/24/2025 2:48 PM EDT [address] [address] XRay Report Signed Patient: Lilliam Geller MR#: [id number] : 1965 Acct:[id number] Age/Sex: 59 / F ADM Date: 04/24/25 [facility]: Keya Vang MD Ordering Physician: Keya Vang MD Date of Service: 04/24/25 Procedure(s): XR shoulder LT min 2V Accession Number(s): [id number] cc: Keya Vang MD Reason for Exam: [...] 04/24/25 1445 DD/ 1410 TD/TT: 04/24/25 1429 Sweat Band Sewer: Procedure Note Donotuseinterpreter, Image - 04/24/2025 [facility] [address] [place] [address] XRay Report Signed Patient: Lilliam GellerMR#: [id number] : 1965Acct:[id number] Age/Sex: 59 / FADM Date: 04/24/25 Loc: [facility] Attending Dr: Keya Vang MD Ordering Physician: Keya Vang MD Date of Service: 04/24/25 Procedure(s): XR shoulder LT min 2V Accession Number(s): [id number] cc: Keya Vang MD Reason for Exam: [...] OV> 04/24/25 1445 DD/ 1410 TD/TT: 04/24/25 142 Sweat Band Sewer: Keya aVng MD IMG XR PROCEDURES Final Re sult * POCT Glucose (04/14/2025 11:58 AM EDT) Only the most recent of2 resultswithin the time period is included. Glucose Blood, POC 165 60 - 200 mg/dL QC Media Lot # [id number] Lot# Expiration Date ,254,759 Comment:random Blood Capillary blood specimen / Unknown 04/14/2025 11:58 AM EDT Dee Valenzuela MD POINT OF CARE TEST ENTER/ED IT ORDERABLES Final Result * Referral to Orthopaedic Surgery (03/31/2025) us Dee Valenzuela MD OUTPATIENT REFERRAL ORDERAB LES Final Result * XR Toes 2+ Left (03/24/2025 1:00 PM EDT) Anatomical Region Laterality Modality Lower Extremities, Toes Left Radiogra phic Imaging 03/24/2025 1:00 PM EDT Narrative 03/24/2025 1:17 PM EDT [address] [address] XRay Report Signed Patient: Lilliam Geller MR#: [id number] : 1965 Acct:[id number] Age/Sex: 59 / F ADM Date: 03/24/25 [facility]: [facility] Attending Dr: Dee Valenzuela MD Ordering Physician: Dee Valenzuela MD Date of Service: 03/24/25 Procedure(s): XR toe LT min 2V Accession Number(s): [id number] cc: Dee Valenzuela MD EXAMINATION: XR TOES [...] signed by Carter Deng MD in OV> 03/24/251314 DD/ 1300 TD/TT: 03/24/251310 Sweat Band Sewer: Procedure Note Donotuseinterpreter, Image - 03/24/[address] [address] XRay Report Signed Patient: Lilliam GellerMR#: [id number] : 1965Acct:[id number] Age/Sex: 59 / FADM Date: 03/24/25 Loc: [facility] Attending Dr: Dee Valenzuela MD Ordering Physician: Dee Valenzuela MD Date of Service: 03/24/25 Procedure(s): XR toe LT min 2V Accession Number(s): [id number] cc: Dee Valenzuela MD EXAMINATION: XR TOES [...] signed by Carter Deng MD in OV> 03/24/251314 DD/ 1300 TD/TT: 03/24/251310 Sweat Band Sewer: us Dee Valenzuela MD IMG XR PROCEDURES Final Res ult * (ABNORMAL) Sed Rate by Modified Kory[place]ren (03/24/2025 11:35 AM EDT) Erythrocyte Sedimentation Rate 31(H) 0 - 20 MM/HR [facility] Comment:Patients with polycy themia and many hemoglobin abnormalitiesmay have depressed sed rates whereas patients with anemiamay have elevated sed rates. Blood Venous blood specimen / Unknown 03/24/2025 11:35 AM EDT 03/24/2025 1:59 PM EDT us Dee Valenzuela MD LAB BLOOD ORDERABLES Final Result Performing Organization Address [facility] Co de Phone Number [facility] [address] [place] [phone] * (ABNORMAL) C-reactive Protein (03/24/2025 11:35 AM EDT) C Reactive Protein 2.53(H) < or = 0.50 mg/dL [facility] Blood Venous blood specimen / Unknown 03/24/2025 11:35 AM EDT 03/24/2025 1:59 PM EDT us Dee Valenzuela MD LAB BLOOD ORDERABLES Final Result Performing Organization Address [facility] de Phone Number [facility] [address] [place] [phone] * (ABNORMAL) Uric acid (03/24/2025 11:35 AM EDT) Uric Acid 6.3(H) 2.4 - 5.7 mg/dL [facility] Blood Venous blood specimen / Unknown 03/24/2025 11:35 AM EDT 03/24/2025 1:59 PM EDT us Dee Valenzuela MD LAB BLOOD ORDERABLES Final Result Performing Organization Address [facility] Co de Phone Number [facility] [address] [place] [phone] * Vitamin B12 (03/24/2025 11:35 AM EDT) Only the most recent of2 resultswithin the time period is included. Vitamin B12 358 200 - 900 pg/mL [facility] Comment:NORMAL 200-900 PG/ML INDETERMINATE 160-199 PG/ML DEFICIENT < 160 PG/ML 03/24/2025 11:3 5 AM EDT 03/24/2025 1:59 PM EDT Dee Valenzuela MD LAB BLOOD ORDERABLES Final Result [facility] [address] [place] [phone] * (ABNORMAL) POCT HGB A1C (03/24/2025 11:03 AM EDT) Pathologist [facility] Hemoglobin A1C 6.5(A) 4.0 - 5.7 % QC Media Lot # [id number] Lot# Expiration Date ,293 Blood 03/24/2025 11:0 3 AM EDT Dee Valenzuela MD POINT OF CARE TEST ENTER/ED IT ORDERABLES Final Result * (ABNORMAL) Hepatitis Panel, General (01/15/2025 9:56 AM EDT) Pathologist [facility] Hepatitis A IgM Nonreactive Nonreactive [facility] Comment:IgM antibodies to MARQUIS V not detected; does not exclude earlyacute or recovered HAV infection. ~Hepatitis B Surface Antibody NONREACTIVE Nonreactive [facility] Comment:Nonreactive: < 8.00 mIU/mL Hepatitis B Core Antibody Nonreactive Nonreactive [facility] Hepatitis C Antibody Reactive(A) Nonreactive [facility] Comment:Presumptive evidence of antibodies to HCV. Hepatitis B Surface Ag Negative Negative [facility] 01/15/2025 9:56 AM EDT 01/15/2025 9:56 AM EDT us Generic External Data Provider LAB BLOOD ORDERAB LES Final Result Performing Organization Address City/[facility]/ZIP Co de Phone Number [facility] [address] [place] [phone] * Lipid Panel, Standard (01/11/2024 9:59 AM EDT) Triglycerides 126 <150 mg/dL [facility] Comment:Desirable Triglyceri de: less than 150 mg/dLBorderline High Triglyceride 150-199 mg/dLHigh Triglyceride: 200-499 mg/dLVery High Triglyceride: greater than or equal to 5OO mg/dL Cholesterol 153 <200 mg/dL [facility] Comment:Desirable Cholestero l: less than 200 mg/dLBorderline High Cholesterol: 200-239 mg/dLHigh Cholesterol: greater than 239 mg/dL LDL Cholesterol Calculated 58 <100 mg/dL [facility] Comment:Desirable LDL: less than 100 mg/dLNear Optimal/Above Optimal LDL: 110- 129 mg/dLBorderline High LDL: 130-159 mg/dLHigh LDL: 160-189 mg/dLVery High LDL: greater than or equal to 190 mg/dL HDL Cholesterol 70 >40 mg/dL [facility] Comment:Desirable HDL: great er than 40 mg/dL Note: This HDL assay may give artificially low results in patients with liver disease. Blood Venous blood specimen / Unknown 01/11/2024 9:59 AM EDT 01/11/2024 2:02 PM EDT us Dee Valenzuela MD LAB BLOOD ORDERABLES Final Result [facility] [address] [place] [phone] * DIGITAL BILATERAL SCREEN 1 (04/06/2018 [...] mRNA E6/E7 Not Detected NOT DETECTED [facility] Comment: This test was performed using the APTIMA(R) HPV Assay ([employer] This assay detects E6/E7 viral messenger RNA (mRNA) from 14 high-risk HPV types (16,18,31,33,35,39,45,51, 52,56,58,59,66,68). For additional information please refer to: http://Artaic.Evernote/faq/TXS732p4 (This link is being provided for informational/ educational purposes only.) Test Performed by [employer] [employer], [address] [place] [phone] Curtis Subramanian M.D., Ph.D., Director of Laboratories , [facility] [id number] Please note: Effective 04/18/2016, HPV testing will be performed using [employer]'s APTIMA test which targets mRNA. Detecting mRNA instead of DNA, as in older methods, offers significant improvements in specificity. 07/05/2016 9:30 AM EST us Soila Sahu CNM HISTORICAL/NON ORDERABLE LABS Final Result [facility] [address] from Last 3 Months or Most Recently Relevant to Health Maintenance Insurance MEDICARE [facility] STANDARD DENTAL-[facility] MEDICAID STAND ADULT Care Teams Doctor Assistant Relationship Specialty Start Date End Date Dee Valenzuela MD [address] [place] [address] PCP - General Internal Medicine 10/11/13 Aggie Campuzano, ClaraD [address] [place] [phone] Pharmacist Pharmacy 02/12/25
== END 2025-05-06 16:26 | disposition home or self-care (01) ==
LOC: HO.HGI 15:15
PROVIDERS: Visit Provider Nurse Practitioner
DX: E11.9 Type 2 diabetes mellitus without complications (principal); K58.2 Mixed irritable bowel syndrome; K30 Functional dyspepsia; R11.2 Nausea with vomiting, unspecified; R10.9 Unspecified abdominal pain
CPT/HCPCS: 99214

== ENCOUNTER 2025-05-06 15:15 | Outpatient (REF) | payer MEDICARE, MEDICAID, SELFPAY ==
--- OUTSIDE RECORDS SUMMARY | 2025-05-06 17:19 | XMS_ITS | Data Portability ---
Author Organization [facility], KATIE Alberts PT Address [address] [place] [address] Care Team Providers Care Mash Grinder Name Role Phone AYAH BACH Primary Care Provider Assessment Encounter Date Assessment Date Assessment LastModified by Organization Details LastModified Time 03/31/2025 03/31/2025 Foot and Ankle N ew Patient Note CHIEF COMPLAINT: Left great toe fracture HPI: Lilliam is a 59-year-old Northern Irish-speaking female presents for initial evaluation of a left great toe fracture. historical interpreter ([id number]) used throughout the encounter. Patient reports she had a trip and fall in sandals about 3 weeks ago in early March resulting in left great toe pain. She did not seek immediate care. She had continued pain and swelling in the great toe and presented to [facility] last week where she was diagnosed with a fracture. She presents today in [facility]. She reports pain in the great toe area. Rates it as a 9 out of 10. She is frustrated because she reports it is limiting her daily activity. Here today to discuss treatment options. Lives in [place], not currently working, history of diabetes, reports A1c in the sevens, history of depression and arthritis, non-smoker Past family history, medical history, social history, allergies, and review of systems has been reviewed, updated and are located in the patient's chart. PHYSICAL EXAM: Constitutional: Healthy appearing individual in no acute distress Psychiatric: Alert and oriented Respiratory: Unlabored breathing Lymphatic: No lymphadenopathy in the foot/ankle Skin: No open wounds CV: Palpable pedal pulses Neuro: Light touch grossly intact MSK: Focused examination of the left foot and ankle- Unsteady exam foot ankle limits appropriate. Forefoot is well aligned. There is swelling of the hallux. Skin and soft tissue envelope are intact. No ecchymosis. Nail plates intact. No subungual hematoma. Tender at the proximal phalanx. Limited MTP and IP range of motion due to swelling and pain. Clinical alignment is appropriate. Grossly motor and sensory intact. Palp DP pulse. Foot warm or perfused. IMAGING: X-Rays ordered, obtained, and reviewed at [facility]: 3 x-rays of the left foot reveal the patient has a intra-articular fracture of the distal articular surface of the proximal phalanx of the great toe. AP alignment is grossly appropriate. There is slight dorsal displacement in the sagittal plane. ASSESSMENT: Left great toe proximal phalanx distal intra-articular fracture PLAN: We discussed the diagnosis, treatment to date, and the plan moving forward. She is at least 3 weeks out from her injury. Early signs of fracture healing on her x-ray. Her biggest concern is that she still has symptoms and she is frustrated by the pain. She is requesting a treatment that would resolve this quickly. My recommendation is she continue conservative measures. I do not feel at this point 3 weeks out surgery would have significant amount utility in terms of improving outcomes. She is at risk for posttraumatic arthritis. If conservative measures fail could consider IP fusion in the future. She was provided with a prescription for a [place] shoe. She may continue weightbearing as tolerated. Discussed it can take 8 to 12 weeks for these fractures to heal. Plan to see her back in 4 weeks for repeat x-rays of the left great toe. Follow-up sooner if any issues. Patient agrees with the plan, all questions answered. Plan to see the patient back . x-rays at that visit. Follow up sooner if any issues. Patient agrees with the plan, all questions answered. Speech recognition planner scheduler software was used to create portions of this document. An attempt at proofreading has been made to minimize errors. Please call for corrections. Not available 04/01/2025 10:23:35 Plan of Treatment Reminders Order Date Submit Date Provider Last Modified By Organization Details Last Modified Time Details Appointments None recorde d. Lab None recorde d. Referral None recorde d. Procedures None recorde d. Surgeries None recorde d. Imaging XR, foot, 3 or more view - room 104 right foot (great toe) wb 025 025 [facility], [address], [address], [place], [address], 07:39:08 Medication Orders None recorde d. Patient TargetsNo targets recorded. Patient InstructionsNo instructions recorded. Reason for Referral None Reported. Results Created Date Observation Date Name Description Value Unit Range Abnormal Flag Note LastModifiedBy Organization Detail LastModifiedTime 03/31/2003/31/2025 XR, foot, 3 or more view http:/ [email or web address] ?Encry pted=s hAaTro YD8dLq bEUv6g %2BXZw aYqtaq 0bqfl% 2Fg9IQ a4ajBk vP9nXo QUaueC m3YtLR FvZlgJ JJ8mAn HZtai3 [id number] AC0Klb 3iHVau uKiQtr MwF INTERFACE [facility] [address], [place], [address], 03/31/2025 16:12:30 03/31/20 25 03/31/2025 XR, foot, 3 or more view http:/ [email or web address] ?Encry pted=s hAaTro YD8dLq bEUv6g %2BXZw aYqtaq 0bqfl% 2Fg9IQ a4ajBk vP9nXo QUaueC m3YtLR FvZlgJ JJ8mAn HZtai3 0i0068 AC0Klb 3iHVau uKiQtr MwF INTERFACE [facility] [address], [place], [address], 03/31/2025 16:12:32 Result Notes Documentation Provider Name and Address Organization Details Recorded Time Xr, Foot, 3 Or More View : [email or web address]? Encrypted=ipFqQdxDX9kCuiN Uv6g%0KDRmwPeyri0upnh%2Fg 9RCk7okOtfU4mBjLZthmIh7Ej FQYoBpyWMV6qLqSVxgn79w522 7FN7Frk7jJXurzJhLvoDdP Not Available [facility] 03/31/2025 16:12: 31 Xr, Foot, 3 Or More View : [email or web address]? Encrypted=sfZkUebQJ8oAzhM Uv6g%1TLQrsDqbvj7xigs%2Fg 1UJg8arMfsN6pCtWImhwVj6Fs LHUoPmnCHR9hSpABtly05g159 9PT4Wub8eATixiIeWcaAaC Not Available [facility] 03/31/2025 16:12: 32 Problems Name Problem SNOMED Code Status Onset Date Resolution Date Notes Provider Name and Address Organization Details Recorded Time Fracture of phalanx of left foot Active 025 Aki Jacobson MD [address] [facility] [address], [place], [address] , [facility] 04/01/2025 10:23:51 Problem Notes None recorded. Medical Equipment None Reported. Medications Name Sig Start Date Stop Date Status Note LastModified by Organization Details LastModified Time multivitamin tablet TAKE 1 TABLET BY MOUTH EVERY EVENING active Not Available Not Available No t Available losartan 50 mg tablet TAKE 1 TABLET BY MOUTH EVERY MORNING active Not Available Not Available No t Available prednisone 10 mg tablet TAKE 4 TABLETS BY MOUTH EVERY DAY FOR 2 DAYS THEN TAKE 3 TABLETS FOR 2 DAYS THEN TAKE 2 TABLETS FOR 2 DAYS THEN TAKE 1 TABLET UNTIL FINISHED active Not Available Not Available No t Available doxycycline hyclate 100 mg capsule TAKE 1 CAPSULE BY MOUTH TWICE DAILY FOR 10 DAYS WITH AT LEAST 8 OUNCES WATER. Do not lie down for 30 minutes after taking. active Not Available Not Available No t Available lamotrigine 200 mg tablet TAKE 1 TABLET BY MOUTH AT BEDTIME active Not Available Not Available No t Available ketoconazole 2 % shampoo APPLY TO SCALP AND LEAVE ON FOR 5 MINUTES THEN RINSE OFF TWICE A WEEK active Not Available Not Available No t Available nabumetone 750 mg tablet TAKE 1 TABLET BY MOUTH TWICE DAILY active Not Available Not Available No t Available Stool Softener 100 mg capsule TAKE 1 CAPSULE BY MOUTH EVERY DAY active Not Available Not Available No t Available azithromycin 250 mg tablet TAKE 2 TABLETS BY MOUTH ON DAY 1, THEN TAKE 1 TABLET DAILY ON DAYS 2-5 active Not Available Not Available No t Available miconazole nitrate 2 % topical cream APPLY TO THE AFFECTED AREA(S) TOPICALLY TWICE DAILY IN THE MORNING AND AT BEDTIME active Not Available Not Available N ot Available diltiazem CD 180 mg capsule,exte nded release 24 hr TAKE 1 CAPSULE BY MOUTH EVERY MORNING active Not Available Not Available No t Available hydrocortiso ne 1 % topical ointment APPLY TO THE AFFECTED AREA(S) TOPICALLY TWICE DAILY active Not Available Not Available Not Available sucralfate 1 gram tablet TAKE 1 TABLET BY MOUTH EVERY DAY active Not Available Not Available No t Available sertraline 100 mg tablet TAKE 2 TABLETS BY MOUTH ONCE DAILY IN THE MORNING active Not Available Not Available Not Available aspirin 81 mg tablet,delay ed release TAKE 1 TABLET BY MOUTH AT BEDTIME active Not Available Not Available No t Available tramadol 50 mg tablet TAKE 1 TABLET BY MOUTH FOUR TIMES DAILY NEEDED FOR PAIN active Not Available Not Available No t Available simvastatin 40 mg tablet TAKE 1 TABLET BY MOUTH AT BEDTIME active Not Available Not Available No t Available ondansetron 8 mg disintegrati ng tablet DISSOLVE 1 TABLET BY MOUTH 2 OR 3 TIMES DAILY NEEDED FOR NAUSEA AND VOMITING active Not Available Not Available No t Available hydrocortiso ne 2.5 % topical cream with perineal applicator APPLY RECTALLY TWICE DAILY active Not Available Not Available Not Available lorazepam 0.5 mg tablet TAKE 1 TABLET BY MOUTH EVERY EVENING NEEDED FOR SEVERE ANXIETY OR FOR SLEEP active Not Available Not Available No t Available gabapentin 800 mg tablet TAKE 1 TABLET BY MOUTH THREE TIMES DAILY IN THE MORNING, EVENING, AND BEDTIME active Not Available Not Available Not Available dicyclomine 20 mg tablet TAKE 1 TABLET BY MOUTH FOUR TIMES DAILY active Not Available Not Available Not Available benzonatate 100 mg capsule TOME 1 C PSULA POR V A ORAL LUISANA VECES AL D A active Not Available Not Available No t Available mirtazapine 30 mg tablet TAKE 1 TABLET BY MOUTH AT BEDTIME active Not Available Not Available No t Available ferrous sulfate 325 mg (65 mg iron) tablet TAKE 1 TABLET BY MOUTH TWICE DAILY IN THE MORNING AND IN THE EVENING active Not Available Not Available No t Available folic acid 1 mg tablet TAKE 1 TABLET BY MOUTH EVERY MORNING active Not Available Not Available No t Available montelukast 10 mg tablet TAKE 1 TABLET BY MOUTH EVERY EVENING active Not Available Not Available No t Available bisacodyl 5 mg tablet,delay ed release TAKE 2 TABLETS BY MOUTH EVERY DAY AT BEDTIME active Not Available Not Available No t Available diclofenac sodium 50 mg tablet,delay ed release TAKE 1 TABLET BY MOUTH THREE TIMES DAILY. DO NOT BREAK, CRUSH, DISSOLVE OR CHEW. active Not Available Not Available No t Available colchicine 0.6 mg tablet TAKE 2 TABLETS BY MOUTH AT ONCE, WAIT 1 HOUR THEN TAKE 1 TABLET, THEN TAKE 1 TABLET BY MOUTH TWICE DAILY FOR 2 DAYS DIRECTED active Not Available Not Available No t Available losartan 100 mg tablet TAKE 1 TABLET BY MOUTH EVERY MORNING active Not Available Not Available No t Available metformin ER 500 mg tablet,exten ded release 24 hr TAKE 1 TABLET BY MOUTH EVERY MORNING and TAKE 2 TABLETS BY MOUTH EVERY DAY IN THE EVENING active Not Available Not Available No t Available Ventolin HFA 90 mcg/actuatio n aerosol inhaler INHALE 2 PUFFS BY MOUTH EVERY 6 HOURS ptn FOR WHEEZING OR SHORTNESS OF BREATH active Not Available Not Available No t Available insulin aspart (U-100) 100 unit/mL (3 mL) subcutaneous pen FOLLOW PROTOCOL DIRECTED SUBCUTANEOU SLY USE DIRECTED. 2-12 UNITS PER SLIDING SCALE. active Not Available Not Available No t Available bupropion HCl XL 300 mg 24 hr tablet, extended release TAKE 1 TABLET BY MOUTH EVERY MORNING active Not Available Not Available No t Available Alcohol Prep Pads USE DIRECTED FOUR TIMES DAILY active Not Available Not Available No t Available Spiriva with HandiHaler 18 mcg and inhalation capsules USE 1 CAPSULE FOR INHALATION ONCE A DAY DO NOT SWALLOW CAPSULE active Not Available Not Available No t Available BD Ultra-Fine Short Pen Needle 31 gauge x 5/16 DIRECTED active Not Available Not Available Not Available hydrochlorot hiazide 12.5 mg tablet TAKE 1 TABLET BY MOUTH EVERY OTHER DAY IN THE MORNING active Not Available Not Available No t Available budesonide-f ormoterol HFA 160 mcg-4.5 mcg/actuatio n aerosol inhaler INHALE 2 PUFFS TWICE DAILY IN THE MORNING AND IN THE EVENING active Not Available Not Available No t Available Creon 24,000-76,00 0-120,000 unit capsule,wilma yed release TAKE 2 CAPSULES BY MOUTH FOUR TIMES DAILY active Not Available Not Available Not Available Dulera 200 mcg-5 mcg/actuatio n HFA aerosol inhaler INHALE 2 PUFFS BY MOUTH TWICE DAILY active Not Available Not Available No t Available OneTouch Verio test strips USE DIRECTED TO TEST BLOOD SUGAR EVERY DAY active Not Available Not Available No t Available lidocaine 5 % topical ointment APPLY TOPICALLY TO THE AFFECTED AREA(S) EVERY DAY DIRECTED active Not Available Not Available Not Available Trulicity 1.5 mg/0.5 mL subcutaneous pen injector INJECT ONE PEN (=1.5MG) SUBCUTANEOU SLY ONCE A WEEK DIRECTED active Not Available Not Available No t Available Incruse Ellipta 62.5 mcg/actuatio n powder for inhalation INHALE 1 PUFF BY MOUTH EVERY DAY AT THE SAME TIME RINSE MOUTH AFTER USING active Not Available Not Available Not Available Zenpep 25,000 unit-79,000 unit-105,000 unit capsule,wilma yed release TAKE 2 CAPSULES BY MOUTH TWICE DAILY WITH MEALS OR SNACK active Not Available Not Available No t Available OneTouch Delica Plus Lancet 33 gauge USE DIRECTED TO TEST BLOOD SUGAR EVERY DAY active Not Available Not Available No t Available Trulicity 3 mg/0.5 mL subcutaneous pen injector INJECT ONE PEN (= 3MG) SUBCUTANEOU SLY ONCE A WEEK DIRECTED active Not Available Not Available No t Available insulin glargine-yfg n (U-100) 100 unit/mL (3 mL) subcutaneous pen 20 UNIT (0.2 ML) SUBCUTANEOU SLY EVERY MORNING active Not Available Not Available No t Available diclofenac potassium 25 mg tablet TAKE 1 TABLET BY MOUTH THREE TIMES DAILY active Not Available Not Available Not Available FreeStyle [place]on 3 [place] USE DIRECTED TO TEST BLOOD SUGAR active Not Available Not Available No t Available FreeStyle Juan Ramon 3 Plus Sensor device USE DIRECTED TO TEST BLOOD SUGAR CHANGE EVERY 15 DAYS active Not Available Not Available No t Available Vitals Date Recorded Body weight Body mass index (BMI) Body height Provider Name and Address Organization Details Last Updated DateTime 03/31/2025 202195.87 g 47.8 kg/m2 154.94 cm Socorro King [place] - [facility] 03/31/2025 15:55:40 Social History None recorded. Functional Status None recorded. Mental Status None recorded. Family History Nothing Reported. Medical History No medical history recorded. Gynecological HistoryNo gynecological history recorded. Obstetrics History GPAL:G 0 P 0 0 0 0 Past Encounters Encounter ID Performer Location Encounter Start Date Encounter Closed Date Diagnosis/Indication Diagnosis SNOMED-CT Code Diagnosis ICD10 Code Diagnosis IMO Codes Diagnosis Note [id number] MD KATIE Shrestha [address] [place] [address] 03/31/2025 14:32:52 04/10/2025 07:39:07 Pain in left foot 0739492362 48034 M79.672 689264 Injury of left foot 1185 145796 [id number] S99.922A [id number] Fracture o f phalanx of left foot 6756895473 S92.912A [id number] Health Concerns Section Related Observation LastModified by Organization Detai ls LastModified Time None Recorded Concern Status LastModified by Organization Details LastModified Time None Recorded Advance Directives Directive None Recorded Payers Insurance Date Sequence Insurance Name Policy Number Policy Marcial Covered Member ID Marcial Member ID Guarantor Name 04/28/2025 1 [place] [employer] Lilliam Pearl [id number] Lilliam Pearl 04/28/2025 2 [place] [facility] Lilliam Pearl [id number] Lilliam Pearl OBGyn Episode No OBEpisode recorded.
[2025-05-06 17:42] LABS: Amylase 34 U/L (28-100); Lipase 10 U/L (8-78)
[2025-05-07 20:22] LABS: Appearance Urine Cloudy; Glucose Urine UA Negative (Negative); PH 5.0 (5.0-9.0); Specific Gravity - Urine >= 1.030 (1.005-1.025); UMIC TRIGGER UACC YES
[2025-05-07 21:04] LABS: Other Crystals Urine Present
== END 2025-05-06 15:16 | disposition home or self-care (01) ==
LOC: HO.LAB 15:15
PROVIDERS: Visit Provider Nurse Practitioner
DX: K21.9 Gastro-esophageal reflux disease without esophagitis (principal); K30 Functional dyspepsia; K58.2 Mixed irritable bowel syndrome; E11.9 Type 2 diabetes mellitus without complications; R10.9 Unspecified abdominal pain; R63.5 Abnormal weight gain; Z13.29 Encounter for screening for other suspected endocrine disorder; Z68.42 Body mass index [BMI] 45.0-49.9, adult
CPT/HCPCS: 36415; 81001; 82150; 83690; 84443; 99212

== ENCOUNTER 2025-05-13 11:52 | Outpatient (AMB) | payer MEDICARE, MEDICAID, SELFPAY ==
--- NOTE | 2025-05-13 11:57 | A.OFFVIS_ITS ---
Vital Signs 05/13/25 11:59 Height 5 ft 3 in Weight 263 lb BMI 46.6 BP 117/56 L Blood Pressure Location Lt brachial Position Sitting Pulse 80 Pulse Oximetry (%) 96 Oxygen Delivery Method Room Air Intake Visit Reasons: 6 weeks GERD, CIC, IBS Intake Note: Patient follow up for GERD, CIC and IBS. Patient cc: Scarrer Required: No Scarrer Name: [facility] Interpeter Accompanied by: Self / Same As Patient Allergies No Known Allergies Allergy (Verified 05/13/25 11:56) HPI HPI 6 weeks GERD, CIC, IBS: Details: Assessment & Plan (1) Diabetes: Code(s): E11.9 - Type 2 diabetes mellitus without complications Category: Medical (2) Irritable bowel syndrome with both constipation and diarrhea: Comment: More CIC Code(s): K58.2 - Mixed irritable bowel syndrome Category: Medical (3) Delayed gastric emptying: Code(s): K30 - Functional dyspepsia Category: Medical (4) Nausea and vomiting: Code(s): R11.2 - Nausea with vomiting, unspecified Category: Medical (5) Abdominal pain: Code(s): R10.9 - Unspecified abdominal pain Category: Medical Plan Her current regimen consists of Dexilant, Creon, sucralfate, Colace, dicyclomine, bisacodyl, and Zofran. Greek #[employer] SHE CALLED AND LEFT A MESSAGE saying she had abdominal pain and she presented to the [facility] ER but ?they did not do anything. ? however I look under [facility] records and all I find as an ER visit for dizziness for which they did a head CT. I do not know whether this was a miscommunication due to language barrier or something else. I asked her to come into the office since the last appointment we had to cut short because she had hypoglycemia. - The patient is a 59-year-old female presenting with nausea, epigastric pain and dizziness. 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 - Symptoms of nausea and sharp abdominal pain started five days prior to evaluation, impacting her ability to eat and resulting in increased dizziness due to an empty stomach. - Describes worsening symptoms when consuming food and reports persistent dizziness, particularly upon waking. - She is diabetic with previous blood work completed mentioning possible pancreatic inflammation and a cholecystectomy for gallstones. - There has been no significant change in her medications or exposure to illness recently. She says she has never experienced anything like this however it seems like we have test episodes of abdominal pain and nausea and vomiting. She has a diabetic so it is possible that this is worsening diabetic gastroparesis so I think a gastric emptying study would be prudent. However, in the meantime I am going to start her on Reglan 4 times a day to see if this offers her any relief. Given the finding of questionable fat stranding at the head of the pancreas I think it amylase and lipase would be prudent and a thyroid and a urinalysis as well. I did review all of the labs from [facility] which showed a generally unremarkable CBC and Chem panel. Return office visit in 4 weeks Orders: Orders Amylase Today R11.2 - Nausea with vomiting, unspecified UA CC w/rflx Micro + Cult Today R10.9 - Unspecified abdominal pain, R63.5 - Abnormal weight gain Lipase Today R11.2 - Nausea with vomiting, unspecified NM gastric emptying study Today R11.2 - Nausea with vomiting, unspecified TSH reflex Free T4 Today R10.9 - Unspecified abdominal pain, R63.5 - Abnormal weight gain Medications: New metoclopramide HCl (Reglan) 5 mg PO QIDACHS 120 tabs 3RF E11.9 - Type 2 diabetes mellitus without complications, K30 - Functional dyspepsia, K58.2 - Mixed irritable bowel syndrome, R11.2 - Nausea with vomiting, unspecified LABS: Laboratory Tests 05/06/25 16:46 Amylase 34 Lipase 10 TSH 0.95 05/07/25-[address]: Physician,Unknown ORDERED: [facility]ACC w Micros QUERIES: Source: Urine, Clean Catch Test Result Flag Reference Ur Color Dark Yellow Ur Appear Cloudy PH 5.0 5.0-9.0 Ur Glu Negative Negative mg/dL Urine Blood Negative Negative Spec Plover Ur >= 1.030 H 1.005-1.025 Urine Protein Trace Neg-Trace mg/dL Urine Ketones Trace Negative mg/dL Ur Nitrite Negative Negative Ur Jer Esterase Trace H Negative Ur RBC 6-10 H 0-2 /HPF Ur WBC 0-5 0-5 /HPF Ur Squam Epi 11-20 0-2 /HPF Ur Other Arti Present Ur Bact Trace None Seen Ur Hyaline Discharge Rn >20 0-2 /LPF GASTRIC EMPTYING STUDY TODAY'S VISIT Greek [employer] fountain [facility] Medical History (Updated 05/13/25 @ 13:52 by NOLAN Bullock) Abdominal pain Low back pain Asthma exacerbation Hypoxemia Colon cancer screening Sinusitis COVID-19 COVID-19 Controlled substance agreement signed Medication monitoring encounter Velia albicans infection Lab test positive for detection of COVID-19 virus COVID-19 Left elbow pain Nausea Abdominal bloating Obesity Bacterial pneumonia COPD (chronic obstructive pulmonary disease) Arthritis Multinodular thyroid Tubular adenoma of colon Chronic fatigue Asthma Bleeding hemorrhoid IBS (irritable bowel syndrome) Vitamin D deficiency Graves disease Hyperlipidemia HTN (hypertension) Diabetes Lumbar radiculopathy Anemia Osteoarthritis Morbid obesity GERD (gastroesophageal reflux disease) Hepatitis C Surgical History Hx of colonoscopy History of esophagogastroduodenoscopy (EGD) Hx of appendectomy Hx of cholecystectomy Family History Mother Diabetes HTN (hypertension) CVD (cardiovascular disease) Heart problem Father Diabetes Brother Autism History of open heart surgery CVD (cardiovascular disease) Diabetes Son Diabetes Maternal Grandmother Diabetes Maternal Grandfather Diabetes Social History Household Members: Spouse, Children and Other Housing: Apartment Are you a primary child care sitter to a significant other at home: No Do you presently have visiting nurse or other home services: No Alcohol intake: never Patient Tobacco Use Status: Never used Tobacco service: No Current occupational status: unemployed and disabled Current occupation: rt handed Review of Systems Const Denies fatigue, Denies fever(s), Denies night sweats, Denies poor appetite and Denies weight loss ENT Reports Normal hearing present, Denies dental pain, Denies dysphagia, Denies hearing loss, Denies mouth pain, Denies odynophagia, Denies throat swelling, Denies tongue swelling and Reports other (Dentition adequate) Card Reports no additional complaints Resp Reports no additional complaints GI Details: Denies abdominal pain, Denies melena, Reports bloating, Denies hematochezia, Denies constipation, Denies GI cramping, Denies dysphagia, Denies excessive flatus, Denies early satiety, Reports heartburn, Denies diarrhea, Reports loose stools, Reports nausea, Denies odynophagia, Reports vomiting and Denies hematemesis Skin/Breast Denies pruritus, Denies lesions, Denies rash and Denies jaundice Neuro Reports Normal hearing present and Denies Abnormal speech present Endo Denies fatigue Aller/Immun Denies throat swelling and Denies tongue swelling Physical Exam Vital Signs: Last Vital Signs Pulse 80 05/13/25 11:59 BP 117/56 L 05/13/25 11:59 Pulse Ox 96 05/13/25 11:59 Oxygen Delivery Method Room Air 05/13/25 11:59 BMI result Body Mass Index 46.6 Const General: cooperative, no acute distress, well developed and well groomed Nutritional Appearance: well nourished and obese morbidly obese Orientation/consciousness: oriented to person, oriented to place and oriented to time Limitations: language barrier HEENT Head: Yes normocephalic and Yes atraumatic Eyes General: appearance normal, both eyes and all related structures Pupils: Equal, round and reactive pupils present Neck Neck: Yes normal visual inspection and Yes no lymphadenopathy Thyroid: Thyroid normal Resp Effort & Inspection: normal respiratory effort and able to speak in complete sentences Auscultation: clear to auscultation bilaterally Cardio Rate: regular rate Rhythm: regular rhythm Heart sounds: Normal, physiologic split S2 sound present Peripheral pulses: radial pulses present and posterior tibial pulses present GI Inspection: No distended, Yes Abdominal panniculus present and Yes obesity Palpation (GI): Soft to palpation, nontender, no guarding, not rigid and No hepatosplenomegaly present Percussion: Yes normal to percussion Auscultation: normal bowel sounds Rectal Exam - Female: deferred Skin General skin exam: no rashes or lesions noted, turgor normal, skin not dry, no jaundice, No spider nevi and no striae Rashes: no rashes Nails: normal Neuro General: oriented to person, oriented to place and oriented to time Cranial nerves: Yes Equal, round and reactive pupils present and Yes Normal hear ing present Speech: No Abnormal speech present Extrem General: Yes normal to inspection, No clubbing, No cyanosis and No edema Psych Appearance: grossly normal and well kempt Mental Status: mental status grossly normal Speech and movement: Normal speech and movement present Affect: normal affect Attitude: cooperative Thought process: Normal thought process present and not confabulating Thought content: Normal thought content present Insight: Fair insight present (Psych) Judgement: Fair judgement present (Psych) Assessment & Plan Assessment & Plan (1) Delayed gastric emptying: Code(s): K30 - Functional dyspepsia Category: Medical (2) Nausea and vomiting: Code(s): R11.2 - Nausea with vomiting, unspecified Category: Medical (3) GERD (gastroesophageal reflux disease): Code(s): K21.9 - Gastro-esophageal reflux disease without esophagitis Category: Medical Qualifiers: Esophagitis presence: without esophagitis Qualified Code(s): K21.9 - Gastro-esophageal reflux disease without esophagitis (4) Irritable bowel syndrome with both constipation and diarrhea: Comment: More CIC Code(s): K58.2 - Mixed irritable bowel syndrome Category: Medical Plan YORU[place] # [place] [employer] Her current regimen consists of Dexilant, Creon, sucralfate, Colace, dicyclomine, bisacodyl, and we discontinued Zofran. Now she is on reglan 5mg 4 times a day with good relief of her symptoms. - The patient is a 59-year-old female presenting for management of GERD, IBS, and diabetic gastroparesis. - The initial diagnosis was prompted by symptoms of delayed gastric emptying, including nausea and vomiting. I started her on the medication prior to the gastric emptying study and she is aware that she needs to hold her medication the day of the study to get the best results. - Metoclopramide has been effective in ameliorating symptoms. She does not feel we need any dose adjustment. - Gastric emptying study pending to verify the gastroparesis diagnosis. - Urinalysis revealed the presence of microcrystals, suggesting the potential development of kidney stones. - Instructions on increasing fluid intake were provided to prevent stone formation. Return office visit in 3 months GASTRIC EMPTYING STUDY Coding Level of Care Code Est Pt Level 3 (82239) Diagnoses Delayed gastric emptying K30 Nausea and vomiting R11.2 GERD (gastroesophageal reflux disease) K21.9 Esophagitis presence: without esophagitis Irritable bowel syndrome with both constipation and diarrhea K58.2
[2025-05-13 11:59] VITALS: BP 117/56; PULSE 80; O2SAT 96; BMI 46.6
--- OUTSIDE RECORDS SUMMARY | 2025-05-13 14:56 | XMS_ITS | Encounter Summary ---
Author Organization [employer] Address [address] [facility] 7[address] [place] [address] Care Team Providers Care Data Processing Specialist Name Role Phone Dee Valenzuela MD Primary Care Provider Aggie Campuzano PharmD Unavailable [phone] Encounter Details Date Type Department Care Team (Late st Contact Info) Description 04/29/2024 Orders Only [facility] MED & PEDS [address] [place], [place] [phone] Dee Valenzuela MD [address] [place], [place] [phone] Type 2 diabetes mellitus without complication, without [...] documented as of this encounter Care Teams Data Processing Specialist Relationship Specialty Start Date End Date Dee Valenzuela MD [address] [place] [address] PCP - General Internal Medicine 10/11/13 Aggie Campuzano PharmD [address] [place] [address] Pharmacist Pharmacy 02/12/25 documented as of this encounter
--- OUTSIDE RECORDS SUMMARY | 2025-05-13 14:56 | XMS_ITS | Clinical Summary ---
Author Organization [facility] With [facility] Address [address] [facility] [address] [place] [id number] Phone Care Team Providers Care Business Systems Manager Name Role Phone Unavailable Primary Care [...] file Medical Devices Not on file Insurance [facility] [address] [place] [address] [place] [address] [employer] Additional Source Comments The information contained in this document represents components of the legal health record. It is not the complete legal health record.[facility]erg[facility] With [facility]
--- OUTSIDE RECORDS SUMMARY | 2025-05-13 14:56 | XMS_ITS | Encounter Summary ---
Author Organization [employer] Address [address] [facility] 7t [place] [address] Care Team Providers Care Extermination Inspector Name Role Phone Dee Valenzuela MD Primary Care Provider Aggie Campuzano PharmD Unavailable [phone] Encounter Details Date Type Department Care Team (Late st Contact Info) Description 07/02/2024 Orders Only [facility] CHC MED & PEDS [address] [place], [place] [phone] Dee Valenzuela MD [address] [place], [place] [phone] Type 2 diabetes mellitus without complication, without long-term current use of insulin (CMS/HCC); Type 2 diabetes mellitus with hyperglycemia ([facility]/HCC) Social History Tobacco Use Types Packs/Day [...] documented as of this encounter Care Teams Extermination Inspector Relationship Specialty Start Date End Date Dee Valenzuela MD [address] [place] [address] PCP - General Internal Medicine 10/11/13 Aggie Campuzano PharmD [address] [place] [address] Pharmacist Pharmacy 02/12/25 documented as of this encounter
--- OUTSIDE RECORDS SUMMARY | 2025-05-13 14:56 | XMS_ITS | Encounter Summary ---
Author Organization [employer] Address [address] [facility] [address] [place] [address] Care Team Providers Care Panel Sewer Name Role Phone Dee Valenzuela MD Primary Care Provider Aggie Campuzano PharmD Unavailable [phone] Reason for Visit * Reason Comments Med Refill Encounter Details Date Type Department Care Team ([facility] st Contact Info) Description 05/12/2025 Refill [facility] CHC MED & PEDS [address] [place], [place] [phone] Dee Valenzuela MD [address] [place], [place] [phone] Acute pain of left shoulder Social History Tobacco Use Types Packs/Day Years [...] Visit Diagnoses Diagnosis Acute pain of left shoulder documented in this encounter Additional Health Concerns Assessment Noted Time PHQ-9 Depression Total Score: 0 04/14/20 25 3:23 PM EDT documented as of this encounter Care Teams Panel Sewer Relationship Specialty Start Date End Date Dee Valenzuela MD [address] [place] [address] PCP - General Internal Medicine 10/11/13 Aggie Campuzano PharmD [address] [place] [address] Pharmacist Pharmacy 02/12/25 documented as of this encounter
--- OUTSIDE RECORDS SUMMARY | 2025-05-13 14:56 | XMS_ITS | Encounter Summary ---
Author Organization [employer] Address [address] [facility] [address] [place] [address] Care Team Providers Care Harness Puller Name Role Phone Dee Valenzuela MD Primary Care Provider Aggie Campuzano PharmD Unavailable [phone] Reason for Visit * Reason Comments Med Refill Encounter Details Date Type Department Care Team ([facility] st Contact Info) Description 05/12/2025 Refill [facility] CHC MED & PEDS [address] [place], [place] [phone] Dee Valenzuela MD [address] [place], [place] [phone] Acute pain of left shoulder Social History [...] documented as of this encounter Care Teams Harness Puller Relationship Specialty Start Date End Date Dee Valenzuela MD [address] [place] [address] PCP - General Internal Medicine 10/11/13 Aggie Campuzano PharmD [address] [place] [address] Pharmacist Pharmacy 02/12/25 documented as of this encounter
--- OUTSIDE RECORDS SUMMARY | 2025-05-13 14:56 | XMS_ITS | Encounter Summary ---
Author Organization [employer] Address [address] [facility] [address] [place] [address] Care Team Providers Care Hide Cleaner Name Role Phone Dee Valenzuela MD Primary Care Provider [phone] Aggie Campuzano PharmD Unavailable [phone] Reason for Visit * Reason Onset Date Comments Appointment Request 04/02/2024 Encounter Details Date Type Department Care Team (Late st Contact Info) Description 04/02/2024 Telephone [facility] MEDICINE [address] [place] [address] Dee Valenzuela MD [address] [place] [address] Appointment Request Social History Tobacco Use Types [...] documented as of this encounter Care Teams Hide Cleaner Relationship Specialty Start Date End Date Dee Valenzuela MD [address] [place] [address] PCP - General Internal Medicine 10/11/13 Aggie Campuzano PharmD [address] [place] [address] Pharmacist Pharmacy 02/12/25 documented as of this encounter
--- OUTSIDE RECORDS SUMMARY | 2025-05-13 14:56 | XMS_ITS | Encounter Summary ---
Author Organization [employer] Address [address] [facility] 7[address] [place] [address] Care Team Providers Care Rv Body Mechanic Name Role Phone Dee Valenzuela MD Primary Care Provider Aggie Campuzano PharmD Unavailable [phone] Reason for Visit * Reason Onset Date Comments Med Refill 05/12/2025 Encounter Details Date Type Department Care Team (Late st Contact Info) Description 05/12/2025 Telephone [facility] MEDICINE [address] [place] [address] Dee Valenzuela MD [address] [place] [address] Med Refill Social History Tobacco Use Types [...] encounter Miscellaneous Notes * Telephone Encounter - Honey Negron LPN - 05/12/2025 9:24 AM EDT Medications pended to pcp * Telephone Encounter - Forest Olivas - 05/12/2025 9:06 AM EDT TC from pt requesting medication refill. Medications needing refill: Diclofenac Sodium 1 % gel tiZANidine (Zanaflex) 2 MG tablet To be sent to: [facility] [place], [place] - [address] [facility] documented in this encounter Plan of Treatment Not on file documented as of this encounter Visit Diagnoses Not on filedocumented in this encounter Additional Health Concerns Assessment Noted Time PHQ-9 Depression Total Score: 0 04/14/20 25 3:23 PM EDT documented as of this encounter Care Teams Rv Body Mechanic Relationship Specialty Start Date End Date Dee Valenzuela MD [address] [place] [address] PCP - General Internal Medicine 10/11/13 Aggie Campuzano, ClaraD [address] [place] [phone] Pharmacist Pharmacy 02/12/25 documented as of this encounter
--- OUTSIDE RECORDS SUMMARY | 2025-05-13 14:56 | XMS_ITS | Clinical Summary ---
Author Organization [employer] Address [address] [place] [address] 7t [place] [address] Care Team Providers Care Tool And Die Maker Level Five Name Role Phone Dee Valenzuela MD Primary Care Provider Aggie Campuzano PharmD Unavailable [phone] Allergies Active Allergy Reactions Criticality Noted Date [...] 1 023 Active Blood Glucose Monitoring Suppl ([employer] Verio Flex System) device Inject 1 Units under the skin 3 times daily. Test blood sugar as directed 1 each 023 Active Lancets ([employer] Delica Plus Skbyha83P) miscIndications: Type 2 diabetes mellitus with hyperglycemia ([facility]) To check the blood sugar once a day 90 each 3 024 Active buPROPion XL (Wellbutrin XL) 300 MG 24 hr tablet Take 1 tablet by mouth in the morning. Active lamoTRIgine (LaMICtal) 200 MG tablet Take 1 tablet by mouth at bedtime. 025 Active mirtazapine (Remeron) 30 MG tablet Take 1 tablet by mouth at bedtime. 024 Active Zenpep 87801-64934 units capsule delayed-release particles capsule Take 2 [...] 90 tablet 1 025 Active Continuous Glucose Glass Edger (FreeStyle Juan Ramon 3 [place]) deviceIndication s:Type 2 diabetes mellitus without complication, [...] mouth every day at bedtime 025 Active Multiple Vitamin (Multivitamin) tabletIndication s:Vitamin deficiency Take 1 tablet by mouth at bedtime. 90 tablet 1 025 Active metFORMIN XR (Glucophage-XR) 500 MG 24 hr tabletIndication s:Type 2 diabetes mellitus with hyperglycemia, without long-term current use of insulin ([facility]) Take ONE tablet in the morning and TWO tablets in the evening 90 tablet 1 025 Active glucose blood (OneTouch Verio) test stripIndications :Type 2 diabetes mellitus without complication, without long-term current use of insulin ([facility]) To test the blood sugar 3 times a day 100 each 3 025 Active Trulicity 3 MG/0.5ML solution auto-injectorInd ications:Type 2 diabetes mellitus with hyperglycemia, without long-term current use of insulin ([facility]) INJECT ONE PEN (= 3MG) [...] per day. 60 g 3 025 Active hydrocortisone 1 % ointmentIndicati ons:Seborrheic dermatitis APPLY TO THE AFFECTED AREA(S) TOPICALLY TWICE DAILY 56 g 2 025 Active Diclofenac Sodium 1 % gelIndications:A cute pain of left shoulder APPLY 2 GRAMS TOPICALLY TO AFFECTED AREA(S) TWICE DAILY 100 g 025 Active tiZANidine (Zanaflex) 2 MG tabletIndication s:Acute pain of left shoulder Take 1 tablet (2 mg) by mouth every 6 (six) hours if needed for muscle spasms for up to 10 days. 30 tablet 025 2024 Active lidocaine (Xylocaine) 5 % ointmentIndicati ons:Left elbow pain APPLY TOPICALLY TO THE AFFECTED AREA(S) NEEDED FOR MILD PAIN 60 g 3 025 2024 Discontinued(R eorder (will not trigger notification to Pharmacy)) hydrocortisone 1 % ointmentIndicati ons:Seborrheic dermatitis APPLY TOPICALLY TO THE AFFECTED AREA(S) TWICE DAILY 56 g 2 025 2024 Discontinued traMADol (Ultram) 50 MG tabletIndication s:Closed nondisplaced [...] eorder (will not trigger notification to Pharmacy)) Diclofenac Sodium 1 % gelIndications:A cute pain of left shoulder To apply to the affected area 4 times a day. 100 g 025 2024 Discontinued tiZANidine (Zanaflex) 2 MG tabletIndication s:Acute pain [...] (10/17/2024): More CIC Gastroparesis 09/11/2024 COPD exacerbation ([facility]) 09/03/2024 Assessment & Plan (09/03/2024 6:59 PM [...] deficiency 07/19/2022 Hypertensive disorder 07/19/2022 Rheumatoid arthritis ([facility]) 11/01/2019 Hemorrhoids 07/05/2016 Type 2 diabetes mellitus, [...] 11/21/2024 Severe chronic obstructive p ulmonary disease ([facility]) 07/25/2013 11/21/2024 Encounters Date Type Department Care Team Description 05/12/2025 Refill [facility] [address] [place] [address] Dee Valenzuela MD Acute pain of left shoulder 05/12/[address] [address] Dee Valenzuela MD Med Refill 05/12/2025 Refill [facility] [address] [place] [address] Dee Valenzuela MD Acute pain of left shoulder 05/07/[address] [address] Terese Izaguirre MD Seborrheic dermatitis 04/29/2025 2:40 PM EDT Office Visit [facility] [address] [place] [address] Dee Valenzuela MD Acute pain of left shoulder (Primary Dx) 04/29/2025 Travel 04/28/2025 Telephone [facility] [address] [place] [address] Dee Valenzuela MD Nurse Triage 04/24/2025 1:20 PM EDT Office Visit [facility] [address] [place] [address] Keya Vang MD Acute pain of left shoulder (Primary Dx); Left cervical radiculopathy 04/24/2025 Refill [facility] [address] [place] [address] Dee Valenzuela MD Left elbow pain 04/24/2025 Travel 04/15/2025 Telephone [facility] [address] [place] [address] Dee Valenzuela MD Care Coordination 04/14/2025 11:15 AM EDT Office Visit [facility] [address] [place] [address] Dee Valenzuela MD Closed nondisplaced fracture of phalanx of left great toe, unspecified phalanx, initial encounter (Primary Dx); Type 2 diabetes mellitus with other specified complication, with long-term current use of insulin ([facility]) 04/14/2025 Orders Only [facility] [address] [place] [address] Dee Valenzuela MD 04/14/2025 Telephone [facility] [address] [place] [address] Dee Valenzuela MD 04/14/2025 Travel 04/11/2025 Telephone [facility] [address] [place] [address] Dee Valenzuela MD chart prep 04/08/2025 Refill [facility] [address] [place] [address] Dee Valenzuela MD Closed nondisplaced fracture of phalanx of left great toe, unspecified phalanx, initial encounter (Primary Dx) 04/08/2025 Refill [facility] [address] [place] [address] Dee Valenzuela MD Nondisplaced unspecified fracture of left great toe, initial encounter for closed fracture; Closed nondisplaced fracture of phalanx of left great toe, unspecified phalanx, initial encounter 04/03/2025 Refill [facility] [address] [place] [address] Dee Valenzuela MD Primary hypertension 03/28/2025 Refill [facility] [address] [place] [address] Dee Valenzuela MD Type 2 diabetes mellitus with hyperglycemia, without long-term current use of insulin ([facility]) 03/27/2025 Results Follow-Up [facility] [address] [place] [address] Elisha Villeda RN XR Toes 2+ Left, POCT Glucose, POCT HGB A1C, Additional followed-up results: 3 03/26/2025 Telephone [facility] [address] [place] [address] Dee Valenzuela MD Medication Question 03/26/2025 Travel 03/25/2025 Telephone [facility] [address] [place] [address] Dee Valenzuela MD Durable Medical Equipment 03/24/2025 10:45 AM EDT Office Visit [facility] [address] [place] [address] Dee Valenzuela MD Primary hypertension (Primary Dx); Type 2 diabetes mellitus with other specified complication, with long-term current use of insulin (CMS/HCC); Great toe pain, left; Closed nondisplaced fracture of phalanx of left great toe, unspecified phalanx, initial encounter 03/24/2025 Orders Only [facility] [address] [place] [address] Dee Valenzuela MD Closed nondisplaced fracture of phalanx of left great toe, unspecified phalanx, initial encounter (Primary Dx) 03/24/2025 Orders Only [facility] [address] [place] [address] Dee Valenzuela MD 03/24/2025 Travel 03/21/2025 Telephone [facility] [address] [place] [address] Dee Valenzuela MD chart prep 03/09/2025 Refill [facility] [address] [place] [address] Dee Valenzuela MD Vitamin deficiency 03/08/2025 Refill [facility] [address] [place] [address] Dee Valenzuela MD Type 2 diabetes mellitus with hyperglycemia, without long-term current use of insulin (CMS/HCC); Vitamin deficiency 02/27/2025 Refill [facility] [address] [place] [address] Dee Valenzuela MD Seborrheic dermatitis 02/17/2025 Refill [facility] [address] [place] [address] Dee Valenzuela MD Seborrheic dermatitis 02/17/2025 Refill [facility] [address] [place] [address] Terese Izaguirre MD Acute paronychia of finger of left hand; Cellulitis of left finger 02/13/2025 Refill [facility] [address] [place] [address] Laya Hernández MD Left elbow pain 02/12/2025 Travel 02/11/2025 Refill [facility] [address] [place] [address] Dee Valenzuela MD from Last 3 Months Immunizations Immunization Administration [...] complication, with long-term current use of insulin ([facility]) AMB REFERRAL TO ORTHOPAEDIC SURGERY [...] PM EDT Narrative 04/24/2025 2:47 PM EDT [address] [place] [address] XRay Report Signed Patient: Lilliam Gellre MR#: [id number] : 1965 Acct:[id number] Age/Sex: 59 / F ADM Date: 04/24/25 [facility]: Keya Vang MD Ordering Physician: Keya Vang MD Date of Service: 04/24/25 Procedure(s): XR cervical spine 3V Accession Number(s): [id number] cc: Keya Vang MD Reason for Exam: [...] 04/24/25 1444 DD/ 1425 TD/TT: 04/24/25 1429 Shot Blast Equipment Operator: Procedure Note Donotuseinterpreter, Image - 04/24/2025 [facility] [address] [place] [address] XRay Report Signed Patient: Lilliam GellerMR#: [id number] : 1965Acct:[id number] Age/Sex: 59 / FADM Date: 04/24/25 Loc: [facility] Attending Dr: Keya Vang MD Ordering Physician: Keya Vang MD Date of Service: 04/24/25 Procedure(s): XR cervical spine 3V Accession Number(s): [id number] cc: Keya Vang MD Reason for Exam: [...] worsening since prior exam. Electronically signed by: kSyler Camara MD 04/24/2025 02:44 PM EDT Dictated By: Skyler Clemons MD Signed By: <Electronically signed by Skyler Sandoval MDin OV> 04/24/25 1444 DD/ 1425 TD/TT: 04/24/25 1429 Shot Blast Equipment Operator: Keya Vang MD IMG XR PROCEDURES Final Re sult * XR Shoulder 2+ Views Left (04/24/2025 2:10 PM EDT) Anatomical Region Laterality Modality Upper Extremities, Shoulder Left Radi ographic Imaging 04/24/2025 2:10 PM EDT Narrative 04/24/2025 2:48 PM EDT [address] [address] XRay Report Signed Patient: Lilliam Geller MR#: [id number] : 1965 Acct:[id number] Age/Sex: 59 / F ADM Date: 04/24/25 Loc: .[facility] Attending Dr: Keya Vang MD Ordering Physician: Keya Vang MD Date of Service: 04/24/25 Procedure(s): XR shoulder LT min 2V Accession Number(s): [id number] cc: Keya Vang MD Reason for Exam: [...] 04/24/25 1445 DD/ 1410 TD/TT: 04/24/25 1429 Shot Blast Equipment Operator: Procedure Note Donotuseinterpreter, Image - 04/24/[address] [address] XRay Report Signed Patient: Lilliam GellerMR#: [id number] : 1965Acct:[id number] Age/Sex: 59 / FADM Date: 04/24/25 Loc: HO.[facility] Attending Dr: Keya Vang MD Ordering Physician: Keya Vang MD Date of Service: 04/24/25 Procedure(s): XR shoulder LT min 2V Accession Number(s): [id number] cc: Keya Vang MD Reason for Exam: [...] 04/24/25 1445 DD/ 1410 TD/TT: 04/24/25 1429 Shot Blast Equipment Operator: Keya Vnag MD IMG XR PROCEDURES Final Re sult * POCT Glucose (04/14/2025 11:58 AM EDT) Only the most recent of2 resultswithin the time period is included. [facility] Glucose Blood, POC 165 60 - 200 mg/dL QC Media Lot # [id number] Lot# Expiration Date 673,007 Comment:random Blood Capillary blood specimen / Unknown 04/14/2025 11:58 AM EDT Dee Valenzuela MD POINT OF CARE TEST ENTER/ED IT ORDERABLES Final Result * Referral to Orthopaedic Surgery (03/31/2025) Dee Valenzuela MD OUTPATIENT REFERRAL ORDERAB LES Final Result * XR Toes 2+ Left (03/24/2025 1:00 PM EDT) Anatomical Region Laterality Modality Lower Extremities, Toes Left Radiogra phic Imaging 03/24/2025 1:00 PM EDT Narrative 03/24/2025 1:17 PM EDT [address] [address] XRay Report Signed Patient: Lilliam Geller MR#: [id number] : 1965 Acct:[id number] Age/Sex: 59 / F ADM Date: 03/24/25 Loc: [facility] Attending Dr: Dee Valenzuela MD Ordering Physician: Dee Valenzuela MD Date of Service: 03/24/25 Procedure(s): XR toe LT min 2V Accession Number(s): [id number] cc: Dee Valenzuela MD EXAMINATION: XR TOES [...] 03/24/25 1315 DD/ 1300 TD/TT: 03/24/25 1311 Shot Blast Equipment Operator: Procedure Note Donotuseinterpreter, Image - 03/24/[address] [address] XRay Report Signed Patient: Abel Geller#: [id number] : 1965Acct:[id number] Age/Sex: 59 / FADM Date: 03/24/25 Loc: [facility] Attending Dr: Dee Valenzuela MD Ordering Physician: Dee Valenzuela MD Date of Service: 03/24/25 Procedure(s): XR toe LT min 2V Accession Number(s): [id number] cc: Dee Valenzuela MD EXAMINATION: XR TOES [...] 03/24/25 1315 DD/ 1300 TD/TT: 03/24/25 1311 Shot Blast Equipment Operator: us Dee Valenzuela MD IMG XR PROCEDURES Final Res ult * (ABNORMAL) Sed Rate by Modified Koryergren (03/24/2025 11:35 AM EDT) Erythrocyte Sedimentation Rate 31(H) 0 - 20 MM/HR [facility] Comment:Patients with polycy themia and many hemoglobin abnormalitiesmay have depressed sed rates whereas patients with anemiamay have elevated sed rates. Blood Venous blood specimen / Unknown 03/24/2025 11:35 AM EDT 03/24/2025 1:59 PM EDT us Dee Valenzuela MD LAB BLOOD ORDERABLES Final Result [facility] [address] [place] [phone] [phone] * (ABNORMAL) C-reactive Protein (03/24/2025 11:35 AM EDT) C Reactive Protein 2.53(H) < or = 0.50 mg/dL [facility] Blood Venous blood specimen / Unknown 03/24/2025 11:35 AM EDT 03/24/2025 1:59 PM EDT us Dee Valenzuela MD LAB BLOOD ORDERABLES Final Result Performing Organization Address [facility] Co de Phone Number [facility] [address] [place] [phone] * (ABNORMAL) Uric acid (03/24/2025 11:35 AM EDT) Pathologist [facility] Uric Acid 6.3(H) 2.4 - 5.7 mg/dL [facility] Blood Venous blood specimen / Unknown 03/24/2025 11:35 AM EDT 03/24/2025 1:59 PM EDT us Dee Valenzuela MD LAB BLOOD ORDERABLES Final Result Performing Organization Address [facility] Phone Number [facility] [address] [place] [phone] * Vitamin B12 (03/24/2025 11:35 AM EDT) Only the most recent of2 resultswithin the time period is included. Pathologist [facility] Vitamin B12 358 200 - 900 pg/mL [facility] Comment:NORMAL 200-900 PG/ML INDETERMINATE 160-199 PG/ML DEFICIENT < 160 PG/ML 03/24/2025 11:3 5 AM EDT 03/24/2025 1:59 PM EDT us Dee Valenzuela MD LAB BLOOD ORDERABLES Final Result Performing Organization Address [facility] Co de Phone Number [facility] [address] [place] [phone] * (ABNORMAL) POCT HGB A1C (03/24/2025 11:03 AM EDT) Hemoglobin A1C 6.5(A) 4.0 - 5.7 % QC Media Lot # [id number] Lot# Expiration Date [id number] Blood 03/24/2025 11:0 3 AM EDT us Dee Valenzuela MD POINT OF CARE TEST ENTER/ED IT ORDERABLES Final Result * (ABNORMAL) Hepatitis Panel, General (01/15/2025 9:56 AM EDT) Hepatitis A IgM Nonreactive Nonreactive [facility] Comment:IgM antibodies to MARQUIS V not detected; does not exclude earlyacute or recovered HAV infection. ~Hepatitis B Surface Antibody NONREACTIVE Nonreactive [facility] Comment:Nonreactive: < 8.00 mIU/mL Hepatitis B Core Antibody Nonreactive Nonreactive [facility] Hepatitis C Antibody Reactive(A) Nonreactive [facility] Comment:Presumptive evidence of antibodies to HCV. Hepatitis B Surface Ag Negative Negative [facility] 01/15/2025 9:56 AM EDT 01/15/2025 9:56 AM EDT us Generic External Data Provider LAB BLOOD ORDERAB LES Final Result [facility] [address] [place] [phone] * Lipid Panel, Standard (01/11/2024 9:59 AM EDT) Triglycerides 126 <150 mg/dL [facility] Comment:Desirable Triglyceri de: less than 150 mg/dLBorderline High Triglyceride 150-199 mg/dLHigh Triglyceride: 200-499 mg/dLVery High Triglyceride: greater than or equal to 5OO mg/dL Cholesterol 153 <200 mg/dL [facility] Comment:Desirable Cholestero l: less than 200 mg/dLBorderline High Cholesterol: 200-239 mg/dLHigh Cholesterol: greater than 239 mg/dL LDL Cholesterol Calculated 58 <100 mg/dL [facility] Comment:Desirable LDL: less than 100 mg/dLNear Optimal/Above Optimal LDL: 110- 129 mg/dLBorderline High LDL: 130-159 mg/dLHigh LDL: 160-189 mg/dLVery High LDL: greater than or equal to 190 mg/dL HDL Cholesterol 70 >40 mg/dL [facility] Comment:Desirable HDL: great er than 40 mg/dL Note: This HDL assay may give artificially low results in patients with liver disease. Blood Venous blood specimen / Unknown 01/11/2024 9:59 AM EDT 01/11/2024 2:02 PM EDT us Dee Valenzuela MD LAB BLOOD ORDERABLES Final Result [facility] [address] [place] [phone] * DIGITAL BILATERAL SCREEN 1 (04/06/2018 [...] HPV mRNA E6/E7 Not Detected NOT DETECTED [facility] Comment: This test was performed using the APTIMA(R) HPV Assay ([employer] This assay detects E6/E7 viral messenger RNA (mRNA) from 14 high-risk HPV types (16,18,31,33,35,39,45,51, 52,56,58,59,66,68). For additional information please refer to: http://education.[employer]/faq/BGJ831n2 (This link is being provided for informational/ educational purposes only.) Test Performed by [employer], [facility], [address] [place] [address] Curtis Subramanian M.D., Ph.D., Director of Laboratories , [facility] [id number] Please note: Effective 04/18/2016, HPV testing will be performed using [employer]'s APTIMA test which targets mRNA. Detecting mRNA instead of DNA, as in older methods, offers significant improvements in specificity. 07/05/2016 9:30 AM EST us Soila Sahu CNM HISTORICAL/NON ORDERABLE LABS Final Result [facility] [address] from Last 3 Months or Most Recently Relevant to Health [place] [id number] [facility] STANDARD [facility] STAND ADULT Care Teams Tool And Die Maker Level Five Relationship Specialty Start Date End Date Dee Valenzuela MD [address] [place] [phone] PCP - General Internal Medicine 10/11/13 Aggie Campuzano PharmD [address] [place] [phone] Pharmacist Pharmacy 02/12/25
--- OUTSIDE RECORDS SUMMARY | 2025-05-13 14:57 | XMS_ITS | Encounter Summary ---
Author Organization [facility] Address [address] [place] [address] Phone Care Team Providers Care Diving Coach Name Role Phone Unavailable Primary Care Provider Unavailabl e Encounter Details Date Type Department Care Team (Late st Contact Info) Description 04/26/2018 Ancillary Orders [facility] [address] [place] [address] 3rd Floor, [address] [place] [address] Saritha Dumont PA [address] [place] [address] [place] [address] Social History Tobacco Use Types Packs/Day Years [...] It is not the complete legal health record.[facility]
--- OUTSIDE RECORDS SUMMARY | 2025-05-13 14:57 | XMS_ITS | Encounter Summary ---
Author Organization [employer] Address [address] [facility] 7 [place] [address] Care Team Providers Care Sheep Farm Manager Name Role Phone Dee Valenzuela MD Primary Care Provider Aggie Campuzano PharmD Unavailable [phone] Reason for Visit * Reason Onset Date Comments FYI 10/14/2024 Encounter Details Date Type Department Care Team ([facility] st Contact Info) Description 10/14/2024 Telephone [facility] [address] [place], [place] [phone] Dee Valenzuela MD [address] [place], [place] [phone] Social History Tobacco Use Types Packs/Day Years [...] - 10/15/2024 12:18 PM EDT Tc from [facility] returning call to inform was unable to meet/reach pt today and will be trying again 10/16/24. * Telephone Encounter - Luisana Mcdaniel RN - 10/14/2024 1:28 PM EDT Noted * Telephone Encounter - Kamila Jain - 10/14/2024 1:17 PM EDT Tc from [facility] with [facility] calling to inform pt will be starting home care services tomorrow 10/15/24. documented in this encounter Plan of Treatment Not on file documented as of this encounter Visit Diagnoses Not on filedocumented in this encounter Additional Health Concerns Assessment Noted Time PHQ-9 Depression Total Score: 17 07/20/ 022 12:14 PM EST documented as of this encounter Care Teams Sheep Farm Manager Relationship Specialty Start Date End Date Dee Valenzuela MD [address] [place] [address] PCP - General Internal Medicine 10/11/13 Aggie Campuzano PharmD [address] [place] [address] Pharmacist Pharmacy 02/12/25 documented as of this encounter
--- OUTSIDE RECORDS SUMMARY | 2025-05-13 14:57 | XMS_ITS | Encounter Summary ---
Author Organization [employer] Address [address] [facility] 7t [place] [address] Care Team Providers Care Greaser And Oiler Name Role Phone Dee Valenzuela MD Primary Care Provider [phone] Aggie Campuzano PharmD Unavailable [phone] Reason for Visit * Reason Comments Med Refill Encounter Details Date Type Department Care Team (Late st Contact Info) Description 02/17/2025 Refill [facility] [address] [place] [address] Terese Izaguirre MD [address] [place] [address] Acute paronychia of finger of left hand; [...] documented as of this encounter Care Teams Greaser And Oiler Relationship Specialty Start Date End Date Dee Valenzuela MD [address] [place] [address] PCP - General Internal Medicine 10/11/13 Aggie Campuzano PharmD [address] [place] [address] Pharmacist Pharmacy 02/12/25 documented as of this encounter
--- OUTSIDE RECORDS SUMMARY | 2025-05-13 14:57 | XMS_ITS | Encounter Summary ---
Author Organization [employer] Address [address] [place] [address] [address] [address] Care Team Providers Care Industrial Maintenance Tech Name Role Phone Dee Valenzuela MD Primary Care Provider Aggie Campuzano PharmD Unavailable [phone] Reason for Referral * Consultation (Routine) - Authorized Specialty Diagnoses / Procedures Referred By [place]le[place] t Referred To Contact Pharmacy Diagnoses Type 2 diabetes mellitus without complication, without long-term current use of insulin (HCC) Dee Valenzuela MD [address] [place] [address] Phone: tel: fax: Referral ID Status Reason Start Date Expiration Date Visits Requested Visits Authorized [id number] Authorized Consult and Treat 01/15/2025 01/15/2026 6 6 Encounter Details Date Type Department Care Team (Late st Contact Info) Description 01/15/2025 Orders Only [facility] PEDS [address] [place], [place] [phone] Dee Valenzuela MD [address] [place], [place] [phone] Type 2 diabetes mellitus without complication, without [...] AM EDT) T Spot TB Negative Negative [facility] Comment:A negative test resu lt [...] as aquantitative test. TS PANEL A 0 [facility] TS PANEL B 0 [facility] Negative Control Passed [facility] Positive Control Passed [facility] Comment:For additional infor mation, please refer [email or web address]/faq/[email or web address](This link is being provided for informational/educational purposes only.)THIS TEST WAS PERFORMED AT:[employer] [id number] [place] [address]YNIRFHXLADAN BARTLETT MD,PHD 01/15/2025 9:56 AM EDT 01/15/2025 9:56 AM EDT us Generic External Data Provider LAB BLOOD ORDERAB LES Final Result [facility] [address] [place] [phone] documented in this encounter Visit Diagnoses Diagnosis Type 2 diabetes mellitus without complication, without long-term current use of insulin (HCC)- Primary documented in this encounter Additional Health Concerns Assessment Noted Time PHQ-9 Depression Total Score: 17 12/14/2 022 12:14 PM EST documented as of this encounter Care Teams Industrial Maintenance Tech Relationship Specialty Start Date End Date Dee Valenzuela MD [address] [place] [address] PCP - General Internal Medicine 10/11/13 Aggie Campuzano PharmD [address] [place] [address] Pharmacist Pharmacy 02/12/25 documented as of this encounter
--- OUTSIDE RECORDS SUMMARY | 2025-05-13 14:57 | XMS_ITS | Clinical Summary ---
Author Organization [facility] Address [address] [place] [address] Care Team Providers Care Enterprise Business Architect Name Role Phone Unavailable Primary Care Provider [...]
--- OUTSIDE RECORDS SUMMARY | 2025-05-13 14:57 | XMS_ITS | Encounter Summary ---
Author Organization [facility] Address [address] [place] [address] Phone Care Team Providers Care Applications Tester Name Role Phone Unavailable Primary Care Provider Unavailabl e Encounter Details Date Type Department Care Team (Latest Contact Info) Description 04/26/2018 Ancillary Orders [facility] [address] [place] [address] [place] [address] Saritha uDmont PA [address] [place] [address] Syncope and collapse Social History Tobacco Use [...] It is not the complete legal health record.[facility]
--- OUTSIDE RECORDS SUMMARY | 2025-05-13 14:57 | XMS_ITS | Encounter Summary ---
Author Organization [employer] Address [address] [facility] [address] [place] [address] Care Team Providers Care Outside Dealer Sales Representative Name Role Phone Dee Valenzuela MD Primary Care Provider Aggie Campuzano PharmD Unavailable [phone] Reason for Referral * Consultation (Routine) - Closed Specialty Diagnoses / Procedures Referred By Lurdes freeman Referred To Contact Orthopaedic Surgery Diagnoses Closed nondisplaced fracture of phalanx of left great toe, unspecified phalanx, initial encounter Dee Valenzuela MD [address] [place] [address] Phone: tel: fax: [facility] [address] [place] [address] [place] [address] Phone: tel: fax: Referral ID Status Reason Start Date Expiration Date V isits Requested Visits Authorized [id number] Closed Specialty Services Required 03/24/2025 03/24/2026 1 1 Encounter Details Date Type Department Care Team ([facility] st Contact Info) Description 03/24/[address] [facility] MED & PEDS [address] [place], [place] [phone] Dee Valenzuela MD [address] [place], [place] [phone] Closed nondisplaced fracture of phalanx of left [...] documented as of this encounter Care Teams Outside Dealer Sales Representative Relationship Specialty Start Date End Date Dee Valenzuela MD [address] [place] [address] PCP - General Internal Medicine 10/11/13 Aggie Campuzano PharmD [address] [place] [address] Pharmacist Pharmacy 02/12/25 documented as of this encounter
--- OUTSIDE RECORDS SUMMARY | 2025-05-13 14:57 | XMS_ITS | Encounter Summary ---
Author Organization [employer] Address 75 [facility] 7t [place] [address] Care Team Providers Care Sales Director Name Role Phone Dee Valenzuela MD Primary Care Provider Aggie Campuzano PharmD Unavailable [phone] Encounter Details Date Type Department Care Team (Late st Contact Info) Description 11/29/2024 Orders Only [facility] MED & PEDS 505 [place], [place] [phone] Dee Valenzuela MD [address] [place], [place] [phone] Type 2 diabetes mellitus without complication, without long-term current use of insulin (CMS/[facility]) Social History Tobacco Use Types Packs/Day [...] documented as of this encounter Care Teams Sales Director Relationship Specialty Start Date End Date Dee Valenzuela MD [address] [place] [address] PCP - General Internal Medicine 10/11/13 Aggie Campuzano PharmD [address] [place] [address] Pharmacist Pharmacy 02/12/25 documented as of this encounter
--- OUTSIDE RECORDS SUMMARY | 2025-05-13 14:57 | XMS_ITS | Encounter Summary ---
Author Organization [employer] Address 75 [facility] 7 [place] [address] Care Team Providers Care Roper Operator Name Role Phone Dee Valenzuela MD Primary Care Provider Aggie Campuzano PharmD Unavailable [phone] Reason for Visit * Reason Onset Date Comments Nurse Triage 04/28/2025 Encounter Details Date Type Department Care Team (Late st Contact Info) Description 04/28/2025 Telephone [facility] MED & PEDS 505 [place], [place] [phone] Dee Valenzuela MD [address] [place], [place] [phone] Nurse Triage Social History Tobacco Use Types [...] 04/28/2025 11:19 AM EDT Triage call with [facility] [place] [id number]. Pt reports constant pain in right arm. [...] Pt declines offer to be seen in [facility]. Pt is advised that a provider must see Pt before medications can be prescribed. Pt last seen in [facility] 04/24/25 for left shoulder pain. ASK [...] the pain is 10/10. Contact pt at [phone] documented in this encounter Plan of Treatment Not on file documented as of this encounter Visit Diagnoses Not on filedocumented in this encounter Additional Health Concerns Assessment Noted Time PHQ-9 Depression Total Score: 0 04/14/20 3:23 PM EDT documented as of this encounter Care Teams Roper Operator Relationship Specialty Start Date End Date Dee Valenzuela MD [address] [place] [address] PCP - General Internal Medicine 10/11/13 Aggie Campuzano PharmD [address] [place] [address] Pharmacist Pharmacy 02/12/25 documented as of this encounter
--- OUTSIDE RECORDS SUMMARY | 2025-05-13 14:57 | XMS_ITS | Encounter Summary ---
Author Organization [employer] Address 75 [facility] 7t [place] [address] Care Team Providers Care Pipe Insulator Name Role Phone Dee Valenzuela MD Primary Care Provider Aggie Campuzano PharmD Unavailable [phone] Encounter Details Date Type Department Care Team (Late st Contact Info) Description 01/12/2024 Orders Only [facility] MED & PEDS [address] [place], [place] [phone] Dee Valenzuela MD [address] [place], [place] [phone] Iron deficiency (Primary Dx) Social History Tobacco [...] documented as of this encounter Care Teams Pipe Insulator Relationship Specialty Start Date End Date Dee Valenzuela MD [address] [place] [address] PCP - General Internal Medicine 10/11/13 Aggie Campuzano PharmD [address] [place] [address] Pharmacist Pharmacy 02/12/25 documented as of this encounter
--- OUTSIDE RECORDS SUMMARY | 2025-05-13 14:57 | XMS_ITS | Encounter Summary ---
Author Organization [employer] Address 75 [facility] 7 [place] [address] Care Team Providers Care Benefits Technician Name Role Phone Dee Valenzuela MD Primary Care Provider Aggie Campuzano PharmD Unavailable [phone] Reason for Visit * Reason Onset Date Comments Med Refill 04/08/2025 Encounter Details Date Type Department Care Team (Late st Contact Info) Description 04/08/2025 Refill [facility] [address] [place] [address] Dee Valenzuela MD [address] [place] [address] Closed nondisplaced fracture of phalanx of left [...] 50 MG tablet To be sent to: [facility] - [place], [place] - [address] [place] [address] documented in this encounter Plan of Treatment Not on file documented as of this encounter Visit Diagnoses Diagnosis Closed nondisplaced fracture of phalanx of left great toe, unspecified phalanx, initial encounter- Primary documented in this encounter Additional Health Concerns Assessment Noted Time PHQ-9 Depression Total Score: 17 07/20/ 022 12:14 PM EST documented as of this encounter Care Teams Benefits Technician Relationship Specialty Start Date End Date Dee Valenzuela MD [address] [place] [address] PCP - General Internal Medicine 10/11/13 Aggie Campuzano PharmD [address] [place] [address] Pharmacist Pharmacy 02/12/25 documented as of this encounter
--- OUTSIDE RECORDS SUMMARY | 2025-05-13 14:57 | XMS_ITS | Encounter Summary ---
Author Organization [employer] Address 75 [facility] 7t [place] [address] Care Team Providers Care Artificial Flower Maker Name Role Phone Dee Valenzuela MD Primary Care Provider Aggie Campuzano PharmD Unavailable [phone] Reason for Visit * Reason Comments Med Refill Encounter Details Date Type Department Care Team (Late st Contact Info) Description 02/17/2025 Refill [facility] [address] [place] [address] Dee Valenzuela MD [address] [place] [address] Seborrheic dermatitis Social History Tobacco Use Types [...] documented as of this encounter Care Teams Artificial Flower Maker Relationship Specialty Start Date End Date Dee Valenzuela MD [address] [place] [address] PCP - General Internal Medicine 10/11/13 Aggie Campuzano PharmD [address] [place] [address] Pharmacist Pharmacy 02/12/25 documented as of this encounter
--- OUTSIDE RECORDS SUMMARY | 2025-05-13 14:57 | XMS_ITS | Encounter Summary ---
Author Organization [employer] Address 75 [facility] 7t [place] [address] Care Team Providers Care Die Filer Name Role Phone Dee Valenzuela MD Primary Care Provider Aggie Campuzano PharmD Unavailable [phone] Encounter Details Date Type Department Care Team (Late st Contact Info) Description 04/14/2025 Orders Only [facility] CH[facility] MED & PEDS [address] [place], [place] [phone] Dee Valenzuela MD [address] [place], [place] [phone] Social History Tobacco Use Types Packs/Day Years [...] documented as of this encounter Care Teams Die Filer Relationship Specialty Start Date End Date Dee Valenzuela MD [address] [place] [address] PCP - General Internal Medicine 10/11/13 Aggie Campuzano PharmD [address] [place] [address] Pharmacist Pharmacy 02/12/25 documented as of this encounter
--- OUTSIDE RECORDS SUMMARY | 2025-05-13 14:57 | XMS_ITS | Encounter Summary ---
Author Organization [employer] Address 75 [facility] 7t [place] [address] Care Team Providers Care Associate School Psychologist Name Role Phone Dee Valenzuela MD Primary Care Provider Aggie Campuzano PharmD Unavailable [phone] Reason for Visit * Reason Onset Date Comments returning call 07/20/2022 Encounter Details Date Type Department Care Team ([facility] st Contact Info) Description 07/20/2022 Telephone [facility] CH[facility] MED & PEDS [address] [place], [place] [phone] Dee Valenzuela MD [address] [place], [place] [phone] returning call Social History Tobacco Use Types [...] documented as of this encounter Care Teams Associate School Psychologist Relationship Specialty Start Date End Date Dee Valenzuela MD [address] [place] [address] PCP - General Internal Medicine 10/11/13 Aggie Campuzano PharmD [address] [place] [address] Pharmacist Pharmacy 02/12/25 documented as of this encounter
--- OUTSIDE RECORDS SUMMARY | 2025-05-13 14:57 | XMS_ITS | Encounter Summary ---
Author Organization [employer] Address 75 [facility] 7t [place] [address] Care Team Providers Care Floral Arranger Name Role Phone Dee Valenzuela MD Primary Care Provider Aggie Campuzano PharmD Unavailable [phone] Encounter Details Date Type Department Care Team ([facility] st Contact Info) Description 07/22/2024 Orders Only [facility] CH[facility] MED & PEDS [address] [place], [place] [phone] Dee Valenzuela MD [address] [place], [place] [phone] Social History Tobacco Use Types Packs/Day Years [...] documented as of this encounter Care Teams Floral Arranger Relationship Specialty Start Date End Date Dee Valenzuela MD [address] [place] [address] PCP - General Internal Medicine 10/11/13 Aggie Campuzano PharmD [address] [place] [address] Pharmacist Pharmacy 02/12/25 documented as of this encounter
== END 2025-05-13 12:26 | disposition home or self-care (01) ==
LOC: HO.HGI 11:52
PROVIDERS: PCP Internal Medicine; Visit Provider Nurse Practitioner
DX: K30 Functional dyspepsia (principal); R11.2 Nausea with vomiting, unspecified; K21.9 Gastro-esophageal reflux disease without esophagitis; K58.2 Mixed irritable bowel syndrome
CPT/HCPCS: 99213

== ENCOUNTER → 2025-05-13 11:52 | Outpatient (BNVA) | payer MEDICARE, MEDICAID, SELFPAY | PROVIDERS: PCP Internal Medicine; Visit Provider Nurse Practitioner | DX: K30 Functional dyspepsia (principal); K21.9 Gastro-esophageal reflux disease without esophagitis; K58.2 Mixed irritable bowel syndrome; R11.2 Nausea with vomiting, unspecified | CPT/HCPCS: 99212 ==

== ENCOUNTER 2025-05-21 08:06 | Outpatient (AMB) | payer MEDICARE, MEDICAID, SELFPAY ==
[2025-05-21 08:13] VITALS: BP 100/70; PULSE 78; O2SAT 94; BMI 48.1
--- NOTE | 2025-05-21 08:13 | A.OFFVIS_ITS ---
Vital Signs 05/21/25 08:13 Height 5 ft 3 in Weight 271 lb 6.224 oz BMI 48.1 BP 100/70 Blood Pressure Location Rt femoral Position Sitting Pulse 78 Pulse Source Pulse Oximeter Pulse Oximetry (%) 94 Oxygen Delivery Method Room Air Intake Visit Reasons: follow up Intake Note: Patient last seen by Doctor Didier Mi on 08/12/24. Presents today for RA follow up. Patient states that she fracture her left foot hurting her first and second digit she went to see a surgeon who did nothing about it but is still in alot of pain. Patient also states that she has been having alot of pain on her right arm she states that she has xraysn of both foot and arm. Firearms Specialist Name: monie [id number] Information Interpreted: non-clinical & clinical Accompanied by: Spouse Allergies No Known Allergies Allergy (Verified 05/21/25 08:13) HPI Comments Details: Patient is a 59-year-old female with diabetes, hypertension, hyperlipidemia, COPD, multinodular thyroid, history of tubular adenoma of the colon, GERD, fib romyalgia, polyarticular osteoarthritis and seropositive rheumatoid arthritis here today for urgent visit after fall Interval History: Patient last seen 01/21/25 with me - Not on DMARDs - On Tramadol 50mg qid and Gabapentin 800mg tid - Complained of polyarticular joint pain - There was no evidence of any synovitis on exam and the plan was to monitor her off DMARDs. - DMARDs not restarted Today - Not on DMARDs - On Tramadol 50mg qid and Gabapentin 800mg tid - Fell 2 months ago and sustained and injury to her Left great toe - Not able to walk on it, and having difficulty with pain control - XRs done 03/2025 show comminuted fracture, has not seen podiatry Rheumatologic History: -ve ++CCP Methotrexate - 09/2018 -placed on hold 04/2021, discontinued due to anemia. Humira: July 2020-to 06/2023 ineffective Actemra 06/2023-08/2023 DC due to ins change Orencia 09/2023 ran out & didn't get renewed 04/2024 Monitoring off DMARDs Current Rheumatology Medication(s): Tramadol 50mg qid Gabapentin 800mg tid [facility] Medical History Abdominal pain Low back pain Asthma exacerbation Hypoxemia Colon cancer screening Sinusitis COVID-19 COVID-19 Controlled substance agreement signed Medication monitoring encounter Velia albicans infection Lab test positive for detection of COVID-19 virus COVID-19 Left elbow pain Nausea Abdominal bloating Obesity Bacterial pneumonia COPD (chronic obstructive pulmonary disease) Arthritis Multinodular thyroid Tubular adenoma of colon Chronic fatigue Asthma Bleeding hemorrhoid IBS (irritable bowel syndrome) Vitamin D deficiency Graves disease Hyperlipidemia HTN (hypertension) Diabetes Lumbar radiculopathy Anemia Osteoarthritis Morbid obesity GERD (gastroesophageal reflux disease) Hepatitis C Surgical History Hx of colonoscopy History of esophagogastroduodenoscopy (EGD) Hx of appendectomy Hx of cholecystectomy Family History Mother Diabetes HTN (hypertension) CVD (cardiovascular disease) Heart problem Father Diabetes Brother Autism History of open heart surgery CVD (cardiovascular disease) Diabetes Son Diabetes Maternal Grandmother Diabetes Maternal Grandfather Diabetes Social History Household Members: Spouse, Children and Other Housing: Apartment Are you a primary youth care worker to a significant other at home: No Do you presently have visiting nurse or other home services: No Alcohol intake: never Patient Tobacco Use Status: Never used Tobacco service: No Current occupational status: unemployed and disabled Current occupation: rt handed Review of Systems Const Details: Review of Systems Constitutional: Denies fever, chills, weight loss ENT: Denies vision changes, eye pain or eye redness, dental caries, dry mouth GI: Denies nausea, vomiting, diarrhea, abdominal pain, change in BM Pulm: Denies SOB, VALENCIA, hemoptysis, wheezing Cards: Denies chest pain, palpitations Skin: Denies Raynaud's, rash, nail changes, photosensitivity, FOUNDATION DRILL OPERATOR: Denies headaches, weakness, paresthesias, recurrent falls MSK: as per HPI All other systems reviewed and are unremarkable except noted above Physical Exam Exam Exam: Vital signs reviewed Physical Examination CONSTITUITIONAL Patient alert and cooperative. Well appearing and in no apparent painful distress MSK Feet * Left foot: Left great toe swollen and exquisitely tender to touch * Right foot: Negative squeeze test Vital Signs: Last Vital Signs Pulse 78 10/15/25 08:13 BP 100/70 05/21/25 08:13 Pulse Ox 94 05/21/25 08:13 Oxygen Delivery Method Room Air 05/21/25 08:13 BMI result Body Mass Index 48.1 Results Reviewed Results Reviewed: Laboratory Tests 03/24/25 04/26/25 11:35 19:35 WBC 9.0 RBC 4.24 Hgb 11.0 L Hct 36.0 L Plt Count 246 ESR 31 H Sodium 142 Potassium 3.8 Chloride 103 Carbon Dioxide 30 H BUN 10 Creatinine 0.81 AST 18 ALT 17 XR Left Toe 03/2025 FINDINGS: Three views of the left foot are submitted. Osseous mineralization is normal. There is a comminuted intra-articular fracture of the proximal phalanx of the great toe. The joint spaces are preserved. The soft tissues are unremarkable. IMPRESSION: Comminuted intra-articular fracture of the proximal phalanx of the great toe. Assessment & Plan Assessment & Plan (1) Fracture of toe of left foot: Code(s): S92.912A - Unspecified fracture of left toe(s), initial encounter for closed fr acture Qualifiers: Encounter type: initial encounter Toe: great toe Fracture type: closed Phalanx: unspecified phalanx Fracture alignment: nondisplaced Qualified Code(s): S92.405A - Nondisplaced unspecified fracture of left great toe, initial encounter for closed fracture Plan: #Left great toe comminuted fracture Patient is a 59-year-old female with seropositive rheumatoid arthritis not currently on any DMARD here today for urgent visit for exquisite pain of her left great toe after fall. Discussed with patient that she needs to follow up with Podiatry as she may need potential surgery. Without surgery she may have malunion which will lead to further pain down the line. She is also complaining of a lot of pain. I discussed with the patient that tramadol is the only medication that I prescribed in this clinic and she would need to follow up with her primary to get any further narcotics Plan - Continue tramadol - refilled tizanidine - Also recommending Tylenol - Urgent podiatry referral - RTC 6 months Plan I spent 30 minutes reviewing the record and labs, taking a history, examining the patient, discussing the treatment plan, ordering diagnostic work up and documenting in the medical record Orders: Referrals Podiatry Referral S92.912A - Unspecified fracture of left toe(s), initial encounter for closed fracture Medications: New tizanidine 2 mg PO Q6H 120 caps 1RF muscle spasticity 30 days M79.7 - Fibromyalgia Coding Level of Care Code Est Pt Level 4 (96889) Complex EM visit Add On G2211 Diagnoses Closed nondisplaced fracture of phalanx of left great toe, unspecified phalanx, initial encounter S92.405A Encounter type: initial encounter Toe: great toe Fracture type: closed Phalanx: unspecified phalanx Fracture alignment: nondisplaced
--- OUTSIDE RECORDS SUMMARY | 2025-05-21 08:19 | XMS_ITS | Encounter Summary ---
Author Organization [facility] Address [address] [place] [address] Phone Care Team Providers Care Camouflage Assembler Name Role Phone Unavailable Primary Care Provider Unavailabl e Encounter Details Date Type Department Care Team (Latest Contact Info) Description 04/26/2018 Ancillary Orders [facility] [address] [place] [address] [place] [address] Saritha Dumont PA [address] [place] [address] Syncope and collapse Social History Tobacco Use [...] It is not the complete legal health record.[facility]
--- OUTSIDE RECORDS SUMMARY | 2025-05-21 08:19 | XMS_ITS | Clinical Summary ---
Author Organization [facility] Address [address] [facility] [address] [place] [address] Phone Care Team Providers Care Balance Truer Name Role Phone Unavailable Primary Care Provider [...] file Medical Devices Not on file Insurance [facility] [address] [place] [address] [place] [address] C3 ACO Additional Source Comments The information contained in this document represents components of the legal health record. It is not the complete legal health record.[facility]
--- OUTSIDE RECORDS SUMMARY | 2025-05-21 08:19 | XMS_ITS | Clinical Summary ---
Author Organization [facility] Address [address] [place] [address] Care Team Providers Care Stockroom Helper Name Role Phone Unavailable Primary Care Provider [...]
--- OUTSIDE RECORDS SUMMARY | 2025-05-21 08:19 | XMS_ITS | Encounter Summary ---
Author Organization [facility] Address [address] [place] [address] Phone Care Team Providers Care Director Safety Name Role Phone Unavailable Primary Care Provider Unavailabl e Encounter Details Date Type Department Care Team (Late st Contact Info) Description 04/26/2018 Ancillary Orders [facility] [address] [place] [address] 3rd Floor, [address] [place] [address] Saritha Dumont PA [address] [place] [address] Social History Tobacco Use Types Packs/Day Years [...] It is not the complete legal health record.[facility]
== END 2025-05-21 09:07 | disposition home or self-care (01) ==
LOC: HO.RHES 08:06
PROVIDERS: PCP Internal Medicine; Visit Provider Student in an Organized Health Care Education/Training Program
DX: S92.405A Nondisplaced unspecified fracture of left great toe, initial encounter for closed fracture (principal)
CPT/HCPCS: 99214; G2211

== ENCOUNTER → 2025-05-21 08:06 | Outpatient (BNVA) | payer MEDICARE, MEDICAID, SELFPAY | PROVIDERS: PCP Internal Medicine; Visit Provider Student in an Organized Health Care Education/Training Program | DX: S92.405D Nondisplaced unspecified fracture of left great toe, subsequent encounter for fracture with routine healing (principal); M79.7 Fibromyalgia; M05.9 Rheumatoid arthritis with rheumatoid factor, unspecified; R15.9 Full incontinence of feces; E11.9 Type 2 diabetes mellitus without complications | CPT/HCPCS: 99212 ==

== ENCOUNTER → 2025-06-18 07:50 | Outpatient (BNV) | payer MEDICARE, MEDICAID, SELFPAY | PROVIDERS: PCP Internal Medicine; Visit Provider Radiology Diagnostic Radiology | DX: R11.2 Nausea with vomiting, unspecified (principal) | CPT/HCPCS: 78264 ==

== ENCOUNTER → 2025-06-18 07:51 | Outpatient (REF) | payer MEDICARE, MEDICAID, SELFPAY ==
--- NOTE | ~2025-06-18 | NM_ITS ---
EXAMINATION: PR RADIONUCLIDE SOLID FOOD GASTRIC EMPTYING 4-HOUR STUDY CLINICAL INFORMATION: R11.2 - Nausea with vomiting, unspecified COMPARISON: None TECHNIQUE: A standard meal consisting of 4 oz of egg whites tagged with 0.99 microcuries Tc-99m Sulfur Colloid, 6 oz water and 1 slice of toast with jelly was administered orally to the patient. Images were obtained using a dual head gamma camera in the anterior and posterior projections over of the stomach immediately post ingestion and at hourly intervals up to 4 hours post ingestion. The anterior and posterior counts at each time interval were averaged using the geometric mean and expressed as percentage of the immediate post ingestion counts. FINDINGS: There is good visualization of activity in the stomach immediately post ingestion. As the study progresses, there is good clearance of activity from the stomach and visualization of progressively increasing small bowel activity. By the end of the study, there is almost no retention noted in the stomach. Retention in the stomach at each time interval was: 1 hour 75% (normal 37%-90%) 2 hours 46% (normal 30%-60%) 3 hours 14% 4 hours 2% (normal 0%-10%) PR/PR gastric emptying study IMPRESSION: Normal 4-hour solid food gastric emptying study. For solid meal, rapid gastric emptying is less than 30% at 60 minutes. Delayed gastric emptying criteria is more than 60% remaining at 120 minutes or more than 10% at 240 minutes. The 4-hour value is the best discriminator of a normal or abnormal result). Gastric emptying study grading per JNMT Consensus Recommendations in 2008 (https://tech.snmjournals.org/content/36/44) Grade 1 (mild retention): 11-20% at 4h Grade 2 (moderate retention): 21-35% at 4h Grade 3 (severe retention): 36-50% at 4h Grade 4 (very severe retention): >50% retention at 4h Electronically signed by: Scott Le MD 06/18/2025 12:41 PM [facility]
--- OUTSIDE RECORDS SUMMARY | 2025-06-18 07:53 | XMS_ITS | Encounter Summary ---
Author Organization [employer] Address [address] [facility] [address] [place] [address] Care Team Providers Care Cigarette Packing Machine Operator Name Role Phone Dee Valenzuela MD Primary Care Provider [phone] Aggie Campuzano PharmD Unavailable [phone] Encounter Details Date Type Department Care Team (Late st Contact Info) Description 07/02/2024 Orders Only [facility] [address], [place] [id number] Dee Valenzuela MD [address] [place], [place] [phone] Type 2 diabetes mellitus without complication, without long-term current use of insulin (CMS/HCC); Type 2 diabetes mellitus with hyperglycemia ([facility]/HCC) Social History Tobacco Use Types Packs/Day [...] Care Team (Late st Contact Info) Description 08/14/2025 9:00 AM EST Medication Management [facility] [address] [place] [address] Aggie Campuzano PharmD [address] [place] [address] documented as of this encounter Visit Diagnoses Diagnosis Type 2 diabetes mellitus without complication, without long-term current use of insulin (HCC) Type 2 diabetes mellitus with hyperglycemia (HCC) documented in this encounter Additional Health Concerns Assessment Noted Time PHQ-9 Depression Total Score: 17 022 12:14 PM EST documented as of this encounter Care Teams Cigarette Packing Machine Operator Relationship Specialty Start Date End Date Dee Valenzuela MD [address] [place] [address] PCP - General Internal Medicine 10/11/13 Aggie Campuzano PharmD [address] [place] [address] Pharmacist Pharmacy 02/12/25 documented as of this encounter
--- OUTSIDE RECORDS SUMMARY | 2025-06-18 07:53 | XMS_ITS | Encounter Summary ---
Author Organization [employer] Address [address] [facility] [address] [place] [address] Care Team Providers Care Director Of Casino Marketing Name Role Phone Dee Valenzuela MD Primary Care Provider Aggie Campuzano PharmD Unavailable [phone] Reason for Visit * Reason Onset Date Comments Appointment Request 04/02/2024 Encounter Details Date Type Department Care Team (Late st Contact Info) Description 04/02/2024 Telephone [facility] [address] [place] [address] Dee Valenzuela MD [address] [place] [address] Appointment Request Social History Tobacco Use Types [...] Description 08/14/2025 9:00 AM EST Medication Management [facility] [address] [place] [address] Aggie Campuzano PharmD [address] [place] [address] documented as of this encounter Visit Diagnoses Not on filedocumented in this encounter Additional Health Concerns Assessment Noted Time PHQ-9 Depression Total Score: 17 07/20/ 022 12:14 PM EST documented as of this encounter Care Teams Director Of Casino Marketing Relationship Specialty Start Date End Date Dee Valenzuela MD [address] [place] [address] PCP - General Internal Medicine 10/11/13 Aggie Campuzano PharmD [address] [place] [address] Pharmacist Pharmacy 02/12/25 documented as of this encounter
--- OUTSIDE RECORDS SUMMARY | 2025-06-18 07:53 | XMS_ITS | Clinical Summary ---
Author Organization [employer] Address [address] [place] [address] [address] [place] [address] Care Team Providers Care Fireboat Operator Name Role Phone Dee Valenzuela MD Primary Care Provider Aggie Campuzano PharmD Unavailable [phone] Allergies Active Allergy Reactions Criticality Noted Date [...] 1 023 Active Blood Glucose Monitoring Suppl (Tinybeans Verio Flex System) device Inject 1 Units under the skin 3 times daily. Test blood sugar as directed 1 each 023 Active Lancets (Tinybeans Delica Plus [id number]) miscIndications: Type 2 diabetes mellitus with hyperglycemia ([facility]) To check the blood sugar once a day 90 each 3 024 Active buPROPion XL (Wellbutrin XL) 300 MG 24 hr tablet Take 1 tablet by mouth in the morning. Active lamoTRIgine (LaMICtal) 200 MG tablet Take 1 tablet by mouth at bedtime. 025 Active mirtazapine (Remeron) 30 MG tablet Take 1 tablet by mouth at bedtime. 024 Active Zenpep 35714-09600 units capsule delayed-release particles capsule Take 2 [...] Ellipta 62.5 MCG/ACT aerosol powder 025 Active Alcohol Swabs (Alcohol Prep) 70 % pads USE DIRECTED FOUR TIMES DAILY 200 each 025 Active Continuous Glucose Web Press Operator Helper Offset (FreeStyle Juan Ramon 3 [place]) deviceIndication s:Type 2 diabetes mellitus without complication, without long-term current use of insulin ([facility]) 1 each Once per day. Use as directed for CGM 1 each 025 Active Continuous Glucose Sensor (FreeStyle Juan Ramon 3 Plus Sensor) miscIndications: Type 2 diabetes mellitus without complication, without long-term current use of insulin ([facility]) 1 each every 15 days. Apply 1 every 15 days as directed for CGM 2 each 025 Active dilTIAZem CD (Cardizem CD) 180 MG 24 hr capsuleIndicatio ns:Primary hypertension TAKE 1 CAPSULE BY MOUTH EVERY MORNING 90 capsule 1 025 Active simvastatin (Zocor) 40 MG tabletIndication s:Hypercholester olemia TAKE 1 TABLET BY MOUTH AT BEDTIME 90 tablet 1 025 Active Aspirin Low Dose 81 MG EC tablet TAKE 1 TABLET BY MOUTH AT BEDTIME 90 tablet 1 025 Active Bisacodyl EC 5 MG EC tablet take 2 tablets by mouth every day at bedtime 025 Active Multiple Vitamin (Multivitamin) tabletIndication s:Vitamin deficiency Take 1 tablet by mouth at bedtime. 90 tablet 1 025 Active glucose blood (OneTouch Verio) test stripIndications :Type 2 diabetes mellitus without complication, without long-term current use of insulin ([facility]) To test the blood sugar 3 times a day 100 each 3 025 Active traMADol (Ultram) 50 MG tabletIndication [...] AREA(S) TWICE DAILY 100 g 025 Active ketoconazole (NIZOral) 2 % shampooIndicatio ns:Seborrheic dermatitis APPLY TO SCALP AND LEAVE ON FOR 5 MINUTES THEN RINSE OFF TWICE A WEEK 120 mL 3 025 Active Trulicity 3 MG/0.5ML solution auto-injectorInd ications:Type 2 diabetes mellitus with hyperglycemia, without long-term current use of insulin (HCC) INJECT ONE PEN (= 3MG) SUBCUTANEOUSLY ONCE A WEEK DIRECTED 2 mL 1 025 Active hydroCHLOROthiaz lisa 12.5 MG tabletIndication s:Primary hypertension TAKE 1 TABLET BY MOUTH EVERY OTHER DAY IN THE MORNING 15 tablet 1 025 Active Ferrous Sulfate (iron) 325 (65 Fe) MG tabletIndication s:Iron deficiency TAKE 1 TABLET BY MOUTH TWICE DAILY IN THE MORNING AND IN THE EVENING 180 tablet 1 025 Active folic acid (Folvite) 1 MG tabletIndication s:Iron deficiency TAKE 1 TABLET BY MOUTH EVERY MORNING 90 tablet 1 025 Active folic acid (Folvite) 1 MG tabletIndication s:Iron deficiency Take 1 tablet (1,000 mcg) by mouth in the morning. 90 tablet 1 025 Active Ferrous Sulfate (iron) 325 (65 Fe) MG tabletIndication s:Iron deficiency Take 1 tablet (325 mg) by mouth with breakfast and with evening meal. 180 tablet 1 025 Active metFORMIN XR (Glucophage-XR) 500 MG 24 hr tabletIndication s:Type 2 diabetes mellitus with hyperglycemia, without long-term current use of insulin (HCC) Take 1 tablet twice daily (dose decrease) 60 tablet 2 025 Active dexlansoprazole (Dexilant) [address] capsule 025 Active metoclopramide (Reglan) 5 MG tablet 10/28/2 025 Active nabumetone (Relafen) 750 MG tablet Take 750 mg by mouth 2 times daily. Active tiZANidine (Zanaflex) 2 MG tabletIndication s:Acute pain of left shoulder TAKE 1 TABLET BY MOUTH EVERY 6 HOURS NEEDED FOR MUSCLE SPASMS 30 tablet Active Ferrous Sulfate (iron) 325 (65 Fe) MG tabletIndication s:Iron deficiency TAKE 1 TABLET BY MOUTH TWICE DAILY IN THE MORNING AND IN THE EVENING 180 tablet 1 2024 Discontinued(R eorder (will not trigger notification to Pharmacy)) folic acid (Folvite) 1 MG tabletIndication s:Iron deficiency TAKE 1 TABLET BY MOUTH EVERY MORNING 90 tablet 1 2024 Discontinued(R eorder (will not trigger notification to Pharmacy)) diclofenac (Voltaren) 50 MG EC tabletIndication s:Acute paronychia of finger of left hand,Cellulitis of left finger Take 1 tablet (50 mg) by mouth 3 times daily. Do not crush, chew, or split. 12 tablet 2024 Discontinued(M ed list cleanup (will not trigger notification to Pharmacy)) metFORMIN XR (Glucophage-XR) 500 MG 24 hr tabletIndication s:Type 2 diabetes mellitus with hyperglycemia, without long-term current use of insulin (HCC) Take ONE tablet in the morning and TWO tablets in the evening 90 tablet 1 2024 Discontinued Trulicity 3 MG/0.5ML solution auto-injectorInd ications:Type 2 diabetes mellitus with hyperglycemia, without long-term current use of insulin (HCC) INJECT ONE PEN (= 3MG) SUBCUTANEOUSLY ONCE A WEEK DIRECTED 2 mL 1 2024 Discontinued hydroCHLOROthiaz lisa 12.5 MG tabletIndication s:Primary hypertension TAKE 1 TABLET BY MOUTH EVERY OTHER DAY IN THE MORNING 15 tablet 1 2024 Discontinued tiZANidine (Zanaflex) 2 MG tabletIndication s:Acute pain of left shoulder Take 1 tablet (2 mg) by mouth every 6 (six) hours if needed for muscle spasms for up to 10 days. 30 tablet 2024 Discontinued(R eorder (will not trigger notification to Pharmacy)) metFORMIN XR (Glucophage-XR) 500 MG 24 hr tabletIndication s:Type 2 diabetes mellitus with hyperglycemia, without long-term current use of insulin ([facility]) TAKE 1 TABLET BY MOUTH EVERY MORNING and TAKE 2 TABLETS BY MOUTH EVERY DAY IN THE EVENING 90 tablet 1 025 2024 Discontinued(R eorder (will not trigger notification to Pharmacy)) metFORMIN XR (Glucophage-XR) 500 MG 24 hr tabletIndication s:Type 2 diabetes mellitus with hyperglycemia, without long-term current use of insulin (HCC) TAKE 1 TABLET BY MOUTH EVERY MORNING and TAKE 2 TABLETS BY MOUTH EVERY DAY IN THE EVENING 60 tablet 2 025 2024 Discontinued(R eorder (will not trigger [...] (10/17/2024): More CIC Gastroparesis 09/11/2024 COPD exacerbation ([facility]) 09/03/2024 Assessment & Plan (09/03/2024 6:59 PM [...] deficiency 07/19/2022 Hypertensive disorder 07/19/2022 Rheumatoid arthritis ([facility]) 11/01/2019 Hemorrhoids 07/05/2016 Type 2 diabetes mellitus, [...] 11/21/2024 Severe chronic obstructive p ulmonary disease ([facility]) 07/25/2013 11/21/2024 Encounters Date Type Department Care Team Description 06/11/2025 Refill [facility] [address] [place] [address] Dee Valenzuela MD Acute pain of left shoulder 06/10/2025 Telephone [facility] [address] [place] [address] Dee Valenzuela MD Med Refill 06/05/2025 Travel 06/03/2025 Refill [facility] [address] [place] [address] Dee Valenzuela MD Iron deficiency 06/02/2025 Refill [facility] [address] [place] [address] Dee Valenzuela MD Iron deficiency 05/29/2025 Refill [facility] [address] [place] [address] Aggie Campuzano, PharmD Type 2 diabetes mellitus with hyperglycemia, without long-term current use of insulin ([facility]) 05/28/2025 Refill [facility] [address] [place] [address] Dee Valenzuela MD Primary hypertension 05/26/2025 Refill [facility] MED[facility]INE [address] [place] [phone] Dee Valenzuela MD Type 2 diabetes mellitus with hyperglycemia, without long-term current use of insulin (HCC) 05/14/2025 Refill [facility] PEDS [address] [place] [address] Dee Valenzuela MD Seborrheic dermatitis 05/12/2025 Refill [facility] [address] [place] [address] Dee Valenzuela MD Acute pain of left shoulder 05/12/2025 Telephone [facility] [address] [place] [phone] Dee Valenzuela MD Med Refill 05/12/2025 Refill [facility] [address] [place] [address] Dee Valenzuela MD Acute pain of left shoulder 05/07/2025 Refill [facility] [address] [place] [phone] Terese Izaguirre MD Seborrheic dermatitis 04/29/2025 2:40 PM EDT Office Visit [facility] [address] [place] [address] Dee Valenzuela MD Acute pain of left shoulder (Primary Dx) 04/29/2025 Travel 04/28/2025 Telephone [facility] [address] [place] [address] Dee Valenzuela MD Nurse Triage 04/24/2025 1:20 PM EDT Office Visit [facility] [address] [place] [phone] Keya Vang MD Acute pain of left shoulder (Primary Dx); Left cervical radiculopathy 04/24/2025 Refill [facility] [address] [place] [address] Dee Valenzuela MD Left elbow pain 04/24/2025 Travel 04/15/2025 Telephone [facility] [address] [place] [address] Dee Valenzuela MD Care Coordination 04/14/2025 11:15 AM EDT Office Visit [facility] [address] [place] [address] Dee Valenzuela MD Closed nondisplaced fracture of phalanx of left great toe, unspecified phalanx, initial encounter (Primary Dx); Type 2 diabetes mellitus with other specified complication, with long-term current use of insulin ([facility]) 04/14/2025 Orders Only [facility] [address] [place] [address] Dee Valenzuela MD 04/14/2025 Telephone [facility] [address] [place] [address] Dee Valenzuela MD 04/14/2025 Travel 04/11/2025 Telephone [facility] [address] [place] [address] Dee Valenzuela MD chart prep 04/08/2025 Refill [facility] [address] [place] [address] Dee Valenzuela MD Closed nondisplaced fracture of phalanx of left great toe, unspecified phalanx, initial encounter (Primary Dx) 04/08/2025 Refill [facility] [address] [place] [address] Dee Valenzuela MD Nondisplaced unspecified fracture of left great toe, initial encounter for closed fracture; Closed nondisplaced fracture of phalanx of left great toe, unspecified phalanx, initial encounter 04/03/2025 Refill [facility] [address] [place] [address] Dee Valenzuela MD Primary hypertension 03/28/2025 Refill [facility] [address] [place] [address] Dee Valenzuela MD Type 2 diabetes mellitus with hyperglycemia, without long-term current use of insulin ([facility]) 03/27/2025 Results Follow-Up [facility] [address] [place] [address] Elisha Villeda RN XR Toes 2+ Left, POCT Glucose, POCT HGB A1C, Additional followed-up results: 3 03/26/2025 Telephone [facility] [address] [place] [address] Dee Valenzuela MD Medication Question 03/26/2025 Travel 03/25/2025 Telephone [facility] [address] [place] [address] Dee Valenzuela MD Durable Medical Equipment 03/24/2025 10:45 AM EDT Office Visit [facility] [address] [place] [address] Dee Valenzuela MD Primary hypertension (Primary Dx); Type 2 diabetes mellitus with other specified complication, with long-term current use of insulin ([facility]); Great toe pain, left; Closed nondisplaced fracture of phalanx of left great toe, unspecified phalanx, initial encounter 03/24/2025 Orders Only [facility] [address] [place] [address] Dee Valenzuela MD Closed nondisplaced fracture of phalanx of left great toe, unspecified phalanx, initial encounter (Primary Dx) 03/24/2025 Orders Only [facility] [address] [place] [address] Dee Valenzuela MD 03/24/2025 Travel 03/21/2025 Telephone [facility] [address] [place] [address] Dee Valenzuela MD chart prep from Last 3 Months Immunizations Immunization Administration Dates Next Due Hep A, Adult 01/11/2011,05/18/2010 Hep B, adult 05/07/2019,01/11/2011,05/18/2010 Influenza injectable quadriv alent IIV4 with preservative 08/30/2022,04/20/2018,04/28/2017,05/18 Influenza injectable quadriv alent preservative free 06/10/2021,05/25/2020,05/07/2019,05/23 Influenza, IIV3, injectable 07/05/2023 Influenza, Split (incl. simone fied surface antigen) 05/16/2013,10/08/2012 Influenza, seasonal, injecta ble, preservative free 06/06/2025,07/16/2024,05/17/2016,05/23,05/09/2012 Moderna Covid-19 Vaccine 12+ 11/11/2020,10/15/19 21 Pfizer Covid-19 Vaccine 12+ 06/06/2025 Pneumococcal Conjugate PCV 20 10/10/2023 Pneumococcal Polysaccharide [...] 04/29/2025 2:15 PM EDT Plan of Treatment Upcoming Encounters Date Type Department Care Team (Late st Contact Info) Description 08/14/2025 9:00 AM EST Medication Management [facility] [address] [place] [address] Aggie Campuzano, PharmD [address] [place] [address] Health Maintenance Due Date Last Done Comments [...] 07/05/2021 07/05/2016 Lipid Panel 01/10/2025 01/11/2024, 10/06/2022 Dental Oral Exam 05/24/2025 11/21/2024, 05/22/2008 Diabetes: Hemoglobin A1C 09/24/2025 025, 12/18/2024, 09/11/2024, Additional history exists SDOH Screening 12/11/2025 12/11/2024 Diabetes: Foot Exam 12/18/2025 12/18/2024 Alcohol/Substance Use Screening 04/14/2026 04/14/2025 Depression Screening 04/14/2026 04/14/2025, 04/14/20 Tobacco Screening 04/24/2026 04/24/2025 Dental X-Ray: Full Mouth 11/23/2027 11/21/2024 DTaP/Tdap/Td Vaccines (2 - Td or Tdap) 05/07/2029 05/07/2019, 01/10/2008 RSV Patients and Patients Aged 60 [...] 01/15/2025 , 03/19/2024, 12/26/2023, Additional history exists COVID-19 Vaccine Completed 06/06/2025, 02/2021, 10/14/2020 Influenza Vaccine Completed 06/06/2025, , 07/05/2023, Additional history exists HIB Vaccines Aged Out [...] complication, with long-term current use of insulin ([facility]) AMB REFERRAL TO ORTHOPAEDIC SURGERY Routine 03/31/2025 [...] complication, with long-term current use of insulin ([facility]) POCT GLYCATED HEMOGLOBIN, TOTAL Routine 03/24/2025 11:03 [...] PM EDT Narrative 04/24/2025 2:47 PM EDT [address] [address] XRay Report Signed Patient: Lilliam Geller MR#: [id number] : 1965 Acct:[id number] Age/Sex: 59 / F ADM Date: 04/24/25 Loc: HO.HHCX Attending Dr: Keya Vang MD Ordering Physician: Keya Vnag MD Date of Service: 04/24/25 Procedure(s): XR cervical spine 3V Accession Number(s): [id number] cc: Keya Vang MD Reason for Exam: [...] 04/24/25 1444 DD/ 1425 TD/TT: 04/24/25 1429 [employer] Project Manager: Procedure Note Donotuseinterpreter, Image - 04/24/[address] [address] XRay Report Signed Patient: Lilliam Geller#: [id number] : 1965Acct:[id number] Age/Sex: 59 / FADM Date: 04/24/25 Loc: HO.HHCX Attending Dr: Keya Vang MD Ordering Physician: Keya Vang MD Date of Service: 04/24/25 Procedure(s): XR cervical spine 3V Accession Number(s): [id number] cc: Keya Vang MD Reason for Exam: [...] 04/24/25 1444 DD/ 1425 TD/TT: 04/24/25 1429 [employer] Project Manager: us Keya Vang MD IMG XR PROCEDURES Final Re sult * XR Shoulder 2+ Views Left (04/24/2025 2:10 PM EDT) Anatomical Region Laterality Modality Upper Extremities, Shoulder Left Radi ographic Imaging 04/24/2025 2:10 PM EDT Narrative 04/24/2025 2:48 PM EDT [address] [address] XRay Report Signed Patient: Lilliam Geller MR#: [id number] : 1965 Acct:[id number] Age/Sex: 59 / F ADM Date: 04/24/25 Loc: HO.HHCX Attending Dr: Keya Vang MD Ordering Physician: Keya Vang MD Date of Service: 04/24/25 Procedure(s): XR shoulder LT min 2V Accession Number(s): [id number] cc: Keya Vang MD Reason for Exam: [...] 04/24/25 1445 DD/ 1410 TD/TT: 04/24/25 1429 [employer] Project Manager: Procedure Note Donotuseinterpreter, Image - 04/24/[address] [address] XRay Report Signed Patient: Lilliam GellerMR#: [id number] : 1965Acct:[id number] Age/Sex: 59 / FADM Date: 04/24/25 Loc: .HHCX Attending Dr: Keya Vang MD Ordering Physician: Keya Vang MD Date of Service: 04/24/25 Procedure(s): XR shoulder LT min 2V Accession Number(s): [id number] cc: Keya Vang MD Reason for Exam: [...] 04/24/25 1445 DD/ 1410 TD/TT: 04/24/25 1429 [employer] Project Manager: Keya Vang MD IMG XR PROCEDURES Final Re sult * POCT Glucose (04/14/2025 11:58 AM EDT) Only the most recent of2 resultswithin the time period is included. Glucose Blood, POC 165 60 - 200 mg/dL QC Media Lot # [id number] Lot# Expiration Date ,666 Comment:random Blood Capillary blood specimen / Unknown [...] PM EDT Narrative 03/24/2025 1:17 PM EDT [place] [address] XRay Report Signed Patient: Lilliam Geller MR#: [id number] : 1965 Acct:[id number] Age/Sex: 59 / F ADM Date: 03/24/25 Loc: HO.CHCLDS Attending Dr: Dee Valenzuela MD Ordering Physician: Dee Valenzuela MD Date of Service: 03/24/25 Procedure(s): XR toe LT min 2V Accession Number(s): [id number] cc: Dee Valenzuela MD EXAMINATION: XR TOES [...] 03/24/25 1315 DD/ 1300 TD/TT: 03/24/25 1311 [employer] Project Manager: Procedure Note Donotuseinterpreter, Image - 03/24/2025 [place] [address] XRay Report Signed Patient: Lilliam GellerMR#: [id number] : 1965Acct:[id number] Age/Sex: 59 / FADM Date: 03/24/25 Loc: .CHCLDS Attending Dr: Dee Valenzuela MD Ordering Physician: eDe Valenzuela MD Date of Service: 03/24/25 Procedure(s): XR toe LT min 2V Accession Number(s): [id number] cc: Dee Valenzuela MD EXAMINATION: XR TOES [...] 03/24/25 1315 DD/ 1300 TD/TT: 03/24/25 1311 [employer] Project Manager: us Dee Valenzuela MD IMG XR PROCEDURES Final Res ult * (ABNORMAL) Sed Rate by Modified [place] (03/24/2025 11:35 AM EDT) Erythrocyte Sedimentation Rate 31(H) 0 - 20 MM/HR [facility] Comment:Patients with polycy themia and many hemoglobin abnormalitiesmay have depressed sed rates whereas patients with anemiamay have elevated sed rates. Blood Venous blood specimen / Unknown 03/24/2025 11:35 AM EDT 03/24/2025 1:59 PM EDT us Dee Valenzuela MD LAB BLOOD ORDERABLES Final Result Performing Organization Address City/[facility]/ZIP Co de Phone Number [facility] [address] [place] [phone] * (ABNORMAL) C-reactive Protein (03/24/2025 11:35 AM EDT) C Reactive Protein 2.53(H) < or = 0.50 mg/dL [facility] Blood Venous blood specimen / Unknown 03/24/2025 11:35 AM EDT 03/24/2025 1:59 PM EDT us Dee Valenzuela MD LAB BLOOD ORDERABLES Final Result Performing Organization Address City/[facility]/ZIP Co de Phone Number [facility] [address] [place] [phone] * (ABNORMAL) Uric acid (03/24/2025 11:35 AM EDT) Uric Acid 6.3(H) 2.4 - 5.7 mg/dL [facility] Blood Venous blood specimen / Unknown 03/24/2025 11:35 AM EDT 03/24/2025 1:59 PM EDT Dee Valenzuela MD LAB BLOOD ORDERABLES Final Result Performing Organization Address [facility]/ZIP Co de Phone Number [facility] [address] [place] [address] [phone] * Vitamin B12 (03/24/2025 11:35 AM EDT) Only the most recent of2 resultswithin the time period is included. Pathologist [facility] Vitamin B12 358 200 - 900 pg/mL [facility] Comment:NORMAL 200-900 PG/ML INDETERMINATE 160-199 PG/ML DEFICIENT < 160 PG/ML 03/24/2025 11:3 5 AM EDT 03/24/2025 1:59 PM EDT Dee Valenzuela MD LAB BLOOD ORDERABLES Final Result Performing Organization Address [facility] Co de Phone Number [facility] [address] [place] [address] [phone] * (ABNORMAL) POCT HGB A1C (03/24/2025 11:03 AM EDT) [facility] Hemoglobin A1C 6.5(A) 4.0 - 5.7 % QC Media Lot # [id number] Lot# Expiration Date Blood 03/24/2025 11:0 3 AM EDT Dee Valenzuela MD POINT OF CARE TEST ENTER/ED IT ORDERABLES Final Result * (ABNORMAL) Hepatitis Panel, General (01/15/2025 9:56 AM EDT) [facility] Hepatitis A IgM Nonreactive Nonreactive [facility] Comment:IgM antibodies to MARQUIS V not detected; does not exclude earlyacute or recovered HAV infection. ~Hepatitis B Surface Antibody NONREACTIVE Nonreactive [facility] Comment:Nonreactive: < 8.00 mIU/mL Hepatitis B Core Antibody Nonreactive Nonreactive [facility] Hepatitis C Antibody Reactive(A) Nonreactive [facility] Comment:Presumptive evidence of antibodies to HCV. Hepatitis B Surface Ag Negative Negative [facility] 01/15/2025 9:56 AM EDT 01/15/2025 9:56 AM EDT us Generic External Data Provider LAB BLOOD ORDERAB LES Final Result Performing Organization Address City/[facility]/ZIP Co de Phone Number [facility] [address] [place] [phone] * Lipid Panel, Standard (01/11/2024 9:59 AM EDT) Triglycerides 126 <150 mg/dL [facility] Comment:Desirable Triglyceri de: less than 150 mg/dLBorderline High Triglyceride 150-199 mg/dLHigh Triglyceride: 200-499 mg/dLVery High Triglyceride: greater than or equal to 5OO mg/dL Cholesterol 153 <200 mg/dL [facility] Comment:Desirable Cholestero l: less than 200 mg/dLBorderline High Cholesterol: 200-239 mg/dLHigh Cholesterol: greater than 239 mg/dL LDL Cholesterol Calculated 58 <100 mg/dL [facility] Comment:Desirable LDL: less than 100 mg/dLNear Optimal/Above Optimal LDL: 110- 129 mg/dLBorderline High LDL: 130-159 mg/dLHigh LDL: 160-189 mg/dLVery High LDL: greater than or equal to 190 mg/dL HDL Cholesterol 70 >40 mg/dL [facility] Comment:Desirable HDL: great er than 40 mg/dL Note: This HDL assay may give artificially low results in patients with liver disease. Blood Venous blood specimen / Unknown 01/11/2024 9:59 AM EDT 01/11/2024 2:02 PM EDT us Dee Valenzuela MD LAB BLOOD ORDERABLES Final Result [facility] [address] [place] [address] [phone] * DIGITAL BILATERAL SCREEN 1 (04/06/2018 [...] HPV mRNA E6/E7 Not Detected NOT DETECTED [facility] Comment: This test was performed using the APTIMA(R) HPV Assay ([employer] This assay detects E6/E7 viral messenger RNA (mRNA) from 14 high-risk HPV types (16,18,31,33,35,39,45,51, 52,56,58,59,66,68). For additional information please refer to: http://education.EasyProperty/faq/BIZ862t3 (This link is being provided for informational/ educational purposes only.) Test Performed by [facility], [address] [place] [address] Curtis Subramanian M.D., Ph.D., Director of Laboratories , [place] [id number] Please note: Effective 04/18/2016, HPV testing will be performed using [employer]'s APTIMA test which targets mRNA. Detecting mRNA instead of DNA, as in older methods, offers significant improvements in specificity. 07/05/2016 9:30 AM EST us Soila Sahu CNM HISTORICAL/NON ORDERABLE LABS Final Result [facility] [address] from Last 3 Months or Most Recently Relevant to Health Maintenance Insurance MEDICARE [facility] STAND ADULT Care Teams Fireboat Operator Relationship Specialty Start Date End Date Dee Valenzuela MD [address] [place] [phone] PCP - General Internal Medicine 10/11/13 Aggie Campuzano, ClaraD [address] [place] [address] Pharmacist Pharmacy 02/12/25
--- OUTSIDE RECORDS SUMMARY | 2025-06-18 07:53 | XMS_ITS | Data Portability ---
Author Organization [facility], KATIE Alberts PT Address [address] [place] [address] Care Team Providers Care Automatic Fancy Machine Operator Name Role Phone AYAH BACH Primary Care Provider Assessment Encounter Date Assessment Date Assessment LastModified by Organization Details LastModified Time 03/31/2025 03/31/2025 Foot and Ankle N ew Patient Note CHIEF COMPLAINT: Left great toe fracture HPI: Lilliam is a 59-year-old Belarusian-speaking female presents for initial evaluation of a left great toe fracture. equipment superintendent ([id number]) used throughout the encounter. Patient reports she had a trip and fall in sandals about 3 weeks ago in early March resulting in left great toe pain. She did not seek immediate care. She had continued pain and swelling in the great toe and presented to [facility] last week where she was diagnosed with a fracture. She presents today in [facility]. She reports pain in the great toe area. Rates it as a 9 out of 10. She is frustrated because she reports it is limiting her daily activity. Here today to discuss treatment options. Lives in [place], not currently working, history of diabetes, reports [...] the plan, all questions answered. Speech recognition grease cup filler software was used to create portions of this document. An attempt at proofreading has been made to minimize errors. Please call for corrections. [email or web address] Not available 04/01/2025 10:23:35 Plan of Treatment [...] [facility], [address], [place], [address], 07:39:08 Medication Orders None recorde d. Patient TargetsNo targets recorded. Patient InstructionsNo instructions recorded. Reason for Referral None Reported. Results Created Date Observation Date Name Description Value Unit Range Abnormal Flag Note LastModifiedBy Organization Detail LastModifiedTime 03/31/2003/31/2025 XR, foot, 3 or more view http:/ [email or web address] ?Encry pted=s hAaTro YD8dLq bEUv6g %2BXZw aYqtaq 0bqfl% 2Fg9IQ a4ajBk vP9nXo QUaueC m3YtLR FvZlgJ JJ8mAn HZtai3 8b5351 AC0Klb 3iHVau uKiQtr MwF INTERFACE [facility] Office [address], [place], [address], 03/31/2025 16:12:30 03/31/20 25 03/31/2025 XR, foot, 3 or more view http:/ [email or web address] ?Encry pted=s hAaTro YD8dLq bEUv6g %2BXZw aYqtaq 0bqfl% 2Fg9IQ a4ajBk vP9nXo QUaueC m3YtLR FvZlgJ JJ8mAn HZtai3 8n3596 AC0Klb 3iHVau uKiQtr MwF INTERFACE [facility] Office [address], [place], [address], 03/31/2025 16:12:32 Result Notes Documentation Provider Name and Address Organization Details Recorded Time Xr, Foot, 3 Or More View : [email or web address]? Encrypted=yuMaLecGB1wVimR Uv6g%4UPVymJaosv0yond%2Fg 5FXd7vkWxxN2tPjJHonnRc8Jq HFInYueDNC9yToWUqnd34l840 3QG0Sbn1eQEcbjCmSuuTxF Not Available [facility] 03/31/2025 16:12: 31 Xr, Foot, 3 Or More View : [email or web address]? Encrypted=chEnMfuIM9oEmbI Uv6g%5CSVkhFoujg3jjhm%2Fg 3QSw4tvXuyH5lRdONntfJa7By LIVeDnhCHK1cGyXVavu83x691 4IA1Qnc9nMQtyqQeKdtUuG Not Available [facility] 03/31/2025 16:12: 32 Problems Name Problem SNOMED Code Status Onset Date Resolution Date Notes Provider Name and Address Organization Details Recorded Time Fracture of phalanx of left foot Active 025 Aki Jacobson MD [address] [facility] [address], [facility] [place], [address] , [facility] 04/01/2025 10:23:51 Problem Notes None recorded. Medical [...] Available Not Available FreeStyle Juan Ramon 3 [place] USE DIRECTED TO TEST BLOOD SUGAR active Not Available Not Available No t Available FreeStyle Juan Ramon 3 Plus Sensor device USE DIRECTED TO TEST BLOOD SUGAR CHANGE EVERY 15 DAYS active Not Available Not Available No t Available Vitals Date Recorded Body weight Body mass index (BMI) Body height Provider Name and Address Organization Details Last Updated DateTime 03/31/2025 940456.87 g 47.8 kg/m2 154.94 cm Socorro King [place] - [facility] 03/31/2025 15:55:40 Social History None recorded. Functional Status None recorded. Mental Status None recorded. Family History Nothing Reported. Medical History No medical history recorded. Gynecological HistoryNo gynecological history recorded. Obstetrics History GPAL:G 0 P 0 0 0 0 Past Encounters Encounter ID Performer Location Encounter Start Date Encounter Closed Date Diagnosis/Indication Diagnosis SNOMED-CT Code Diagnosis ICD10 Code Diagnosis IMO Codes Diagnosis Note [id number] MD KATIE Shrestha [address] [place] [address] 03/31/2025 14:32:52 04/10/2025 07:39:07 Pain in left foot 4259377297 75634 M79.672 302235 Injury of left foot 1185 789062 6924990 S99.922A 7285954 Fracture o f phalanx of left foot [id number] S92.912A [id number] Health Concerns Section Related Observation LastModified by Organization Detai ls LastModified Time None Recorded Concern Status LastModified by Organization Details LastModified Time None Recorded Advance Directives Directive None Recorded Payers Insurance Date Sequence Insurance Name Policy Number Policy Marcial Covered Member ID Marcial Member ID Guarantor Name 04/28/2025 1 [place] [employer] Lilliam Pearl [id number] Lilliam Pearl 04/28/2025 2 [place] [facility] Lilliam Pearl [id number] Lilliam Pearl OBGyn Episode No OBEpisode recorded.
--- OUTSIDE RECORDS SUMMARY | 2025-06-18 07:53 | XMS_ITS | Clinical Summary ---
Author Organization [facility] Address [address] [facility] [address] [place] [address] Phone Care Team Providers Care Azure Architect Name Role Phone Unavailable Primary Care [...] file Medical Devices Not on file Insurance [facility] [address] [place] [address] [place] [address] C3 ACO Additional Source Comments The information contained in this document represents components of the legal health record. It is not the complete legal health record.[facility]
--- OUTSIDE RECORDS SUMMARY | 2025-06-18 07:53 | XMS_ITS | Encounter Summary ---
Author Organization [employer] Address [address] [facility] 7t [place] [address] Care Team Providers Care Director Specialty Name Role Phone Dee Valenzuela MD Primary Care Provider Aggie Campuzano PharmD Unavailable [phone] Encounter Details Date Type Department Care Team (Late st Contact Info) Description 04/29/2024 Orders Only [facility] CHC MED & PEDS [address] [place], [place] [phone] Dee Valenzuela MD [address] [place], [place] [phone] Type 2 diabetes mellitus without complication, without [...] 9:00 AM EST Medication Management [facility] MED & PEDS [address] [place] [address] Aggie Campuzano PharmD [address] [place] [address] documented as of this encounter Visit Diagnoses Diagnosis Type 2 diabetes mellitus without complication, without long-term current use of insulin (HCC)- Primary documented in this encounter Additional Health Concerns Assessment Noted Time PHQ-9 Depression Total Score: 17 022 12:14 PM EST documented as of this encounter Care Teams Director Specialty Relationship Specialty Start Date End Date Dee Valenzuela MD [address] [place] [address] PCP - General Internal Medicine 10/11/13 Aggie Campuzano PharmD [address] [place] [address] Pharmacist Pharmacy 02/12/25 documented as of this encounter
--- OUTSIDE RECORDS SUMMARY | 2025-06-18 07:53 | XMS_ITS | Encounter Summary ---
Author Organization [employer] [facility] Address [address] [facility] 7t [place] [address] Care Team Providers Care Tip Cementer Name Role Phone Dee Valenzuela MD Primary Care Provider Aggie Campuzano PharmD Unavailable [phone] Reason for Visit * Reason Comments Med Refill Encounter Details Date Type Department Care Team ([facility] st Contact Info) Description 05/12/2025 Refill [facility] CHC MED & PEDS [address] [place], [place] [phone] Dee Valenzuela MD [address] [place], [place] [phone] Acute pain of left shoulder Social History [...] Description 08/14/2025 9:00 AM EST Medication Management [facility] CHC MED & PEDS [address] [place] [address] Aggie Campuzano PharmD [address] [place] [address] documented as of this encounter Visit Diagnoses Diagnosis Acute pain of left shoulder documented in this encounter Additional Health Concerns Assessment Noted Time PHQ-9 Depression Total Score: 0 04/14/20 25 3:23 PM EDT documented as of this encounter Care Teams Tip Cementer Relationship Specialty Start Date End Date Dee Valenzuela MD [address] [place] [address] PCP - General Internal Medicine 10/11/13 Aggie Campuzano PharmD [address] [place] [address] Pharmacist Pharmacy 02/12/25 documented as of this encounter
--- OUTSIDE RECORDS SUMMARY | 2025-06-18 07:54 | XMS_ITS | Encounter Summary ---
Author Organization [facility] Address [address] [place] [address] Phone Care Team Providers Care Quality Internship Name Role Phone Unavailable Primary Care Provider Unavailabl e Encounter Details Date Type Department Care Team (Late st Contact Info) Description 04/26/2018 Ancillary Orders [facility] [address] [place] [address] 3rd Floor, [address] [place] [address] Saritha Dumont PA [address] [place] [address] Social History Tobacco Use Types Packs/Day Years [...] It is not the complete legal health record.[facility]
--- OUTSIDE RECORDS SUMMARY | 2025-06-18 07:54 | XMS_ITS | Encounter Summary ---
Author Organization [employer] Address [address] [facility] 7t [place] [address] Care Team Providers Care Tire Spotter Name Role Phone Dee Valenzuela MD Primary Care Provider [phone] Aggie Campuzano PharmD Unavailable [phone] Reason for Visit * Reason Comments Med Refill Encounter Details Date Type Department Care Team (Late st Contact Info) Description 02/17/2025 Refill [facility] [address] [place] [address] Terese Izaguirre MD [address] [place] [address] Acute paronychia of finger of left hand; [...] 9:00 AM EST Medication Management [facility] MED & PEDS [address] [place] [address] Aggie Campuzano PharmD [address] [place] [address] documented as of this encounter Visit Diagnoses Diagnosis Acute paronychia of finger of left hand Cellulitis of left finger documented in this encounter Additional Health Concerns Assessment Noted Time PHQ-9 Depression Total Score: 17 022 12:14 PM EST documented as of this encounter Care Teams Tire Spotter Relationship Specialty Start Date End Date Dee Valenzuela MD [address] [place] [address] PCP - General Internal Medicine 10/11/13 Aggie Campuzano, ClaraD [address] [place] [address] Pharmacist Pharmacy 02/12/25 documented as of this encounter
--- OUTSIDE RECORDS SUMMARY | 2025-06-18 07:54 | XMS_ITS | Encounter Summary ---
Author Organization [employer] Address [address] [facility] 7t [place] [address] Care Team Providers Care Credit And Loan Collections Supervisor Name Role Phone Dee Valenzuela MD Primary Care Provider Aggie Campuzano PharmD Unavailable [phone] Encounter Details Date Type Department Care Team ([facility] st Contact Info) Description 07/22/2024 Orders Only [facility] CHC MED & PEDS [address] [place], [place] [phone] Dee Valenzuela MD 505 [place], [place] [phone] Social History Tobacco Use Types Packs/Day Years [...] Description 08/14/2025 9:00 AM EST Medication Management [facility] MED & PEDS [address] [place] [address] Aggie Campuzano, PharmD [address] [place] [address] documented as of this encounter Visit Diagnoses Not on filedocumented in this encounter Additional Health Concerns Assessment Noted Time PHQ-9 Depression Total Score: 17 022 12:14 PM EST documented as of this encounter Care Teams Credit And Loan Collections Supervisor Relationship Specialty Start Date End Date Dee Valenzuela MD [address] [place] [address] PCP - General Internal Medicine 10/11/13 Aggie Campuzano PharmD [address] [place] [address] Pharmacist Pharmacy 02/12/25 documented as of this encounter
--- OUTSIDE RECORDS SUMMARY | 2025-06-18 07:54 | XMS_ITS | Encounter Summary ---
Author Organization [facility] Address [address] [place] [address] Phone Care Team Providers Care Patrol Conductor Name Role Phone Unavailable Primary Care Provider Unavailabl e Encounter Details Date Type Department Care Team (Latest Contact Info) Description 04/26/2018 Ancillary Orders [facility] [address] [place] [address] [place] [address] Saritha Dumont PA [address] [place] [address] Syncope and collapse Social History Tobacco Use [...] It is not the complete legal health record.[facility]
--- OUTSIDE RECORDS SUMMARY | 2025-06-18 07:54 | XMS_ITS | Encounter Summary ---
Author Organization [employer] Address [address] [facility] 7 [place] [address] Care Team Providers Care Sales Representative Advertising Name Role Phone Dee Valenzuela MD Primary Care Provider Aggie Campuzano PharmD Unavailable [phone] Reason for Visit * Reason Onset Date Comments FYI 10/14/2024 Encounter Details Date Type Department Care Team ([facility] st Contact Info) Description 10/14/2024 Telephone [facility] CHC MED & PEDS [address] [place], [place] [phone] Dee Valenzuela MD [address] [place], [place] [phone] Social History Tobacco Use Types Packs/Day Years [...] - 10/15/2024 12:18 PM EDT Tc from [facility] with [facility] returning call to inform was unable to meet/reach pt today and will be trying again 10/16/24. * Telephone Encounter - Luisana Mcdaniel RN - 10/14/2024 1:28 PM EDT Noted * Telephone Encounter - Kamila Jain - 10/14/2024 1:17 PM EDT Tc from [facility] with [facility] calling to inform pt will be starting home care services tomorrow 10/15/24. documented in this encounter Plan of Treatment Upcoming Encounters Date Type Department Care Team (Late st Contact Info) Description 08/14/2025 9:00 AM EST Medication Management [facility] MED & PEDS [address] [place] [address] Aggie Campuzano PharmD [address] [place] [address] documented as of this encounter Visit Diagnoses Not on filedocumented in this encounter Additional Health Concerns Assessment Noted Time PHQ-9 Depression Total Score: 17 022 12:14 PM EST documented as of this encounter Care Teams Sales Representative Advertising Relationship Specialty Start Date End Date Dee Valenzuela MD [address] [place] [address] PCP - General Internal Medicine 10/11/13 Aggie Campuzano PharmD [address] [place] [address] Pharmacist Pharmacy 02/12/25 documented as of this encounter
--- OUTSIDE RECORDS SUMMARY | 2025-06-18 07:54 | XMS_ITS | Encounter Summary ---
Author Organization [employer] Address [address] [facility] 7t [place] [address] Care Team Providers Care Castings Trimmer Name Role Phone Dee Valenzuela MD Primary Care Provider Aggie Campuzano PharmD Unavailable [phone] Encounter Details Date Type Department Care Team (Late st Contact Info) Description 01/12/2024 Orders Only [facility] CHC MED & PEDS [address] [place], [place] [phone] Dee Valenzuela MD [address] [place], [place] [phone] Iron deficiency (Primary Dx) Social History Tobacco [...] Description 08/14/2025 9:00 AM EST Medication Management [facility] MED & PEDS 505 [place] [address] Aggie Campuzano PharmD [address] [place] [address] Scheduled Orders Name Type Priority Associated Diagnoses [...] documented as of this encounter Care Teams Castings Trimmer Relationship Specialty Start Date End Date Dee Valenzuela MD [address] [place] [address] PCP - General Internal Medicine 10/11/13 Aggie Campuzano PharmD [address] [place] [address] Pharmacist Pharmacy 02/12/25 documented as of this encounter
--- OUTSIDE RECORDS SUMMARY | 2025-06-18 07:54 | XMS_ITS | Encounter Summary ---
Author Organization [employer] Address [address] [facility] 7 [place] [address] Care Team Providers Care Blood Or Blood Bank Technician Name Role Phone Dee Valenzuela MD Primary Care Provider Aggie Campuzano PharmD Unavailable [phone] Reason for Visit * Reason Onset Date Comments Nurse Triage 04/28/2025 Encounter Details Date Type Department Care Team (Late st Contact Info) Description 04/28/2025 Telephone [facility] CHC MED & PEDS [address] [place], [place] [phone] Dee Valenzuela MD [address] [place], [place] [phone] Nurse Triage Social History Tobacco Use Types [...] 04/28/2025 11:19 AM EDT Triage call with [facility] [place] [id number]. Pt reports constant pain in right arm. [...] Pt declines offer to be seen in [facility]. Pt is advised that a provider must see Pt before medications can be prescribed. Pt last seen in [facility] 04/24/25 for left shoulder pain. ASK [...] the pain is 10/10. Contact pt at [phone] documented in this encounter Plan of Treatment Upcoming Encounters Date Type Department Care Team (Late st Contact Info) Description 08/14/2025 9:00 AM EST Medication Management [facility] MED & PEDS [address] [place] [address] Aggie Campuzano PharmD [address] [place] [address] documented as of this encounter Visit Diagnoses Not on filedocumented in this encounter Additional Health Concerns Assessment Noted Time PHQ-9 Depression Total Score: 0 04/14/20 25 3:23 PM EDT documented as of this encounter Care Teams Blood Or Blood Bank Technician Relationship Specialty Start Date End Date Dee Valenzuela MD [address] [place], [place] [phone] PCP - General Internal Medicine 10/11/13 Aggie Campuzano PharmD [address] [place], [place] [phone] Pharmacist Pharmacy 02/12/25 documented as of this encounter
--- OUTSIDE RECORDS SUMMARY | 2025-06-18 07:54 | XMS_ITS | Encounter Summary ---
Author Organization [employer] Address [address] [facility] 7t [place] [address] Care Team Providers Care Boat Dock Operator Name Role Phone Dee Valenzuela MD Primary Care Provider Aggie Campuzano PharmD Unavailable [phone] Encounter Details Date Type Department Care Team (Late st Contact Info) Description 11/29/2024 Orders Only [facility] CHC MED & PEDS [address] [place], [place] [phone] Dee Valenzuela MD [address] [place], [place] [phone] Type 2 diabetes mellitus without complication, without long-term current use of insulin (CMS/[facility]) Social History Tobacco Use Types Packs/Day Years [...] Description 08/14/2025 9:00 AM EST Medication Management [facility] MED & PEDS [address] [place] [address] Aggie Campuzano PharmD [address] [place] [address] documented as of this encounter Visit Diagnoses Diagnosis Type 2 diabetes mellitus without complication, without long-term current use of insulin (HCC) documented in this encounter Additional Health Concerns Assessment Noted Time PHQ-9 Depression Total Score: 17 022 12:14 PM EST documented as of this encounter Care Teams Boat Dock Operator Relationship Specialty Start Date End Date Dee Valenzuela MD [address] [place], [place] [phone] PCP - General Internal Medicine 10/11/13 Aggie Campuzano PharmD [address] [place] [address] Pharmacist Pharmacy 02/12/25 documented as of this encounter
--- OUTSIDE RECORDS SUMMARY | 2025-06-18 07:54 | XMS_ITS | Encounter Summary ---
Author Organization [employer] Address [address] [facility] 7t [place] [address] Care Team Providers Care Hoof And Shoe Inspector Name Role Phone Dee Valenzuela MD Primary Care Provider Aggie Campuzano PharmD Unavailable [phone] Encounter Details Date Type Department Care Team (Late st Contact Info) Description 04/14/2025 Orders Only [facility] CHC MED & PEDS [address] [place], [place] [phone] Dee Valenzuela MD [address] [place], [place] [phone] Social History Tobacco Use Types Packs/Day Years [...] Description 08/14/2025 9:00 AM EST Medication Management [facility] MED & PEDS [address] [place] [address] Aggie Campuzano PharmD [address] [place] [address] documented as of this encounter Visit Diagnoses Not on filedocumented in this encounter Additional Health Concerns Assessment Noted Time PHQ-9 Depression Total Score: 0 04/14/20 25 3:23 PM EDT documented as of this encounter Care Teams Hoof And Shoe Inspector Relationship Specialty Start Date End Date Dee Valenzuela MD [address] [place] [address] PCP - General Internal Medicine 10/11/13 Aggie Campuzano PharmD [address] [place] [address] Pharmacist Pharmacy 02/12/25 documented as of this encounter
--- OUTSIDE RECORDS SUMMARY | 2025-06-18 07:54 | XMS_ITS | Encounter Summary ---
Author Organization [employer] Address [address] [facility] 7t [place] [address] Care Team Providers Care Wheel Cleaner Name Role Phone Dee Valenzuela MD Primary Care Provider Aggie Campuzano PharmD Unavailable [phone] Reason for Visit * Reason Onset Date Comments returning call 07/20/2022 Encounter Details Date Type Department Care Team ([facility] st Contact Info) Description 07/20/2022 Telephone [facility] CHC MED & PEDS [address] [place], [place] [phone] Dee Valenzuela MD [address] [place], [place] [phone] returning call Social History Tobacco Use Types [...] 12:14 PM Maria A Kamara [place] * How difficult have these problems made it for you to do your work, take care of things at home, or get along with other people? Answer Date of Assessment Author Very difficult 07/20/2022 12:14 PM Kortney Cedeno [place] * Over the past 2 weeks, [...] Description 08/14/2025 9:00 AM EST Medication Management [facility] MED & PEDS [address] [place] [address] Aggie Campuzano PharmD [address] [place] [address] documented as of this encounter Visit Diagnoses Not on filedocumented in this encounter Additional Health Concerns Assessment Noted Time PHQ-9 Depression Total Score: 17 022 12:14 PM EST documented as of this encounter Care Teams Wheel Cleaner Relationship Specialty Start Date End Date Dee Valenzuela MD [address] [place] [address] PCP - General Internal Medicine 10/11/13 Aggie Campuzano PharmD [address] [place] [address] Pharmacist Pharmacy 02/12/25 documented as of this encounter
--- OUTSIDE RECORDS SUMMARY | 2025-06-18 07:54 | XMS_ITS | Encounter Summary ---
Author Organization [employer] Address [address] [facility] 7t [place] [address] Care Team Providers Care Fur Dyer Name Role Phone Dee Valenzuela MD Primary Care Provider Aggie Campuzano PharmD Unavailable [phone] Reason for Visit * Reason Comments Med Refill Encounter Details Date Type Department Care Team (Late st Contact Info) Description 02/17/2025 Refill [facility] MEDICINE [address] [place] [address] Dee Valenzuela MD [address] [place] [address] Seborrheic dermatitis Social History Tobacco Use Types [...] Description 08/14/2025 9:00 AM EST Medication Management [facility] CHC MED & PEDS [address] [place] [address] Aggie Campuzano PharmD [address] [place] [address] documented as of this encounter Visit Diagnoses Diagnosis Seborrheic dermatitis Unspecified seborrheic dermatitis documented in this encounter Additional Health Concerns Assessment Noted Time PHQ-9 Depression Total Score: 17 022 12:14 PM EST documented as of this encounter Care Teams Fur Dyer Relationship Specialty Start Date End Date Dee Valenzuela MD [address] [place] [address] PCP - General Internal Medicine 10/11/13 Aggie Campuzano PharmD [address] [place] [address] Pharmacist Pharmacy 02/12/25 documented as of this encounter
--- OUTSIDE RECORDS SUMMARY | 2025-06-18 07:54 | XMS_ITS | Encounter Summary ---
Author Organization [employer] Address [address] [facility] 7t [place] [address] Care Team Providers Care Bleach Range Operator Name Role Phone Dee Valenzuela MD Primary Care Provider Aggie Campuzano PharmD Unavailable [phone] Reason for Visit * Reason Onset Date Comments Med Refill 06/10/2025 Encounter Details Date Type Department Care Team (Late st Contact Info) Description 06/10/2025 Telephone [facility] MEDICINE [address] [place] [address] Dee Valenzuela MD [address] [place] [address] Med Refill Social History Tobacco Use Types [...] encounter Miscellaneous Notes * Telephone Encounter - Maryann Barragan LPN - 06/10/2025 3:14 PM EST Medication was sent to [facility] on 05/30/25. Please advise patient to call the pharmacy for a refill. * Telephone Encounter - Forest Olivas - 06/10/2025 3:11 PM EST TC from pt requesting medication refill. Medications needing refill: hydroCHLOROthiazide 12.5 MG tablet To be sent to: [facility] - [place], [place] - [address] [facility] documented in this encounter Plan of Treatment Upcoming Encounters Date Type Department Care Team (Late st Contact Info) Description 08/14/2025 9:00 AM EST Medication Management [facility] MED & PEDS [address] [place], [place] [phone] Aggie Campuzano, PharmD [address] [place] [address] documented as of this encounter Visit Diagnoses Not on filedocumented in this encounter Additional Health Concerns Assessment Noted Time PHQ-9 Depression Total Score: 0 04/14/20 25 3:23 PM EDT documented as of this encounter Care Teams Bleach Range Operator Relationship Specialty Start Date End Date Dee Valenzuela MD [address] [place] [address] PCP - General Internal Medicine 10/11/13 Aggie Campuzano PharmD [address] [place] [address] Pharmacist Pharmacy 02/12/25 documented as of this encounter
--- OUTSIDE RECORDS SUMMARY | 2025-06-18 07:54 | XMS_ITS | Encounter Summary ---
Author Organization [employer] Address [address] [facility] [address] [address] [place] [address] Care Team Providers Care Accreditation Coordinator Name Role Phone Dee Valenzuela MD Primary Care Provider Aggie Campuzano PharmD Unavailable [phone] Reason for Referral * Consultation (Routine) - Closed Specialty Diagnoses / Procedures Referred By Lurdes freeman Referred To Contact Orthopaedic Surgery Diagnoses Closed nondisplaced fracture of phalanx of left great toe, unspecified phalanx, initial encounter Dee Valenzuela MD [address] [place] [address] Phone: tel: fax: [facility] [address] [place] [address] [place] [address] Phone: tel: fax: Referral ID Status Reason Start Date Expiration Date V isits Requested Visits Authorized [id number] Closed Specialty Services Required 03/24/2025 03/24/2026 1 1 Encounter Details Date Type Department Care Team ([facility] st Contact Info) Description 03/24/2025 Orders Only [facility] CH[facility] MED & PEDS [address] [place], [place] [phone] Dee Valenzuela MD [address] [place], [place] [phone] Closed nondisplaced fracture of phalanx of left [...] Description 08/14/2025 9:00 AM EST Medication Management [facility] MED & PEDS [address] [place] [address] Aggie Campuzano, PharmD [address] [place], [place] [phone] documented as of this encounter Procedures Procedure [...] documented as of this encounter Care Teams Accreditation Coordinator Relationship Specialty Start Date End Date Dee Valenzuela MD [address] [place] [address] PCP - General Internal Medicine 10/11/13 Aggie Campuzano PharmD [address] [place] [address] Pharmacist Pharmacy 02/12/25 documented as of this encounter
--- OUTSIDE RECORDS SUMMARY | 2025-06-18 07:54 | XMS_ITS | Clinical Summary ---
Author Organization [facility] Address [address] [place] [address] Care Team Providers Care Painting Manager Name Role Phone Unavailable Primary Care [...] 10/26/2017 COVID-19 Vaccine (1 - season) 2025 RSV Vaccine 50 years and old er and Patients (1 - 1-dose 75+ series) 10/26/2042
--- OUTSIDE RECORDS SUMMARY | 2025-06-18 07:54 | XMS_ITS | Encounter Summary ---
Author Organization [employer] Address [address] [place] [address] [address], [place] [address] Care Team Providers Care Assistant Customer Service Manager Name Role Phone Dee Valenzuela MD Primary Care Provider Aggie Campuzano PharmD Unavailable [phone] Reason for Referral * Consultation (Routine) - Authorized Specialty Diagnoses / Procedures Referred By [place] t Referred To Contact Pharmacy Diagnoses Type 2 diabetes mellitus without complication, without long-term current use of insulin (HCC) Dee Valenzuela MD [address] [place] [address] Phone: tel: fax: Referral ID Status Reason Start Date Expiration Date Visits Requested Visits Authorized [id number] Authorized Consult and Treat 01/15/2025 01/15/2026 6 6 Encounter Details Date Type Department Care Team (Late st Contact Info) Description 01/15/2025 Orders Only [facility] CHC MED & PEDS [address] [place], [place] [phone] Dee Valenzuela MD [address] [place], [place] [phone] Type 2 diabetes mellitus without complication, without [...] 08/14/2025 9:00 AM EST Medication Management [facility] MED & PEDS [address] [place] [address] Aggie Campuzano, PharmD [address] [place] [address] Scheduled Referrals Name Type Priority Associated Diagnoses Orde r Schedule Referral to Pharmacy CDTM Outpatient Referral Routine Type 2 diabetes mellitus without complication, without long-term current use of insulin ([facility]) Ordered: 01/15/2025 documented as of this encounter Procedures Procedure Name Priority Date/Time Associated Diagnosis Comments T-SPOT(R).TB Routine 01/15/2025 9:56 AM EDT Type 2 diabetes mellitus without complication, without long-term current use of insulin ([facility]) documented in this encounter Results * T-SPOT??.TB (01/15/2025 9:56 AM EDT) T Spot TB Negative Negative [facility] Comment:A negative test resu lt [...] as aquantitative test. TS PANEL A 0 [facility] TS PANEL B 0 [facility] Negative Control Passed [facility] Positive Control Passed [facility] Comment:For additional infor sterling, please refer tohttp://education.Nexamp/faq/JWO351(This link is being provided for informational/educational purposes only.)THIS TEST WAS PERFORMED AT:[employer] [id number] [place] [id number] BARTLETT MD,PHD 01/15/2025 9:56 AM EDT 01/15/2025 9:56 AM EDT us Generic External Data Provider LAB BLOOD ORDERAB LES Final Result [facility] [address] [place] [address] [phone] documented in this encounter Visit Diagnoses Diagnosis Type 2 diabetes mellitus without complication, without long-term current use of insulin (HCC)- Primary documented in this encounter Additional Health Concerns Assessment Noted Time PHQ-9 Depression Total Score: 17 07/20/ 022 12:14 PM EST documented as of this encounter Care Teams Assistant Customer Service Manager Relationship Specialty Start Date End Date Dee Valenzuela MD [address] [place] [address] PCP - General Internal Medicine 10/11/13 Aggie Campuzano PharmD [address] [place] [address] Pharmacist Pharmacy 02/12/25 documented as of this encounter
--- OUTSIDE RECORDS SUMMARY | 2025-06-18 07:54 | XMS_ITS | Encounter Summary ---
Author Organization [employer] Address [address] [facility] 7 [place] [address] Care Team Providers Care Casing Soaker Name Role Phone Dee Valenzuela MD Primary Care Provider [phone] Aggie Campuzano PharmD Unavailable [phone] Reason for Visit * Reason Onset Date Comments Med Refill 04/08/2025 Encounter Details Date Type Department Care Team (Late st Contact Info) Description 04/08/2025 Refill [facility] MEDICINE [address] [place] [address] Dee Valenzuela MD [address] [place] [address] Closed nondisplaced fracture of phalanx of left [...] 50 MG tablet To be sent to: [facility] - [place], [place] - [address] [facility] documented in this encounter Plan of Treatment Upcoming Encounters Date Type Department Care Team (Late st Contact Info) Description 08/14/2025 9:00 AM EST Medication Management [facility] MED & PEDS [address] [place] [address] Aggie Campuzano, PharmD [address] [place] [address] documented as of this encounter Visit Diagnoses Diagnosis Closed nondisplaced fracture of phalanx of left great toe, unspecified phalanx, initial encounter- Primary documented in this encounter Additional Health Concerns Assessment Noted Time PHQ-9 Depression Total Score: 17 022 12:14 PM EST documented as of this encounter Care Teams Casing Soaker Relationship Specialty Start Date End Date Dee Valenzuela MD [address] [place] [address] PCP - General Internal Medicine 10/11/13 Aggie Campuzano PharmD [address] [place] [address] Pharmacist Pharmacy 02/12/25 documented as of this encounter
== END ==
LOC: HO.NUCMED 07:51
PROVIDERS: PCP Internal Medicine; Visit Provider Nurse Practitioner
DX: R11.2 Nausea with vomiting, unspecified (principal)
CPT/HCPCS: 78264; A9541

== ENCOUNTER 2025-07-08 11:40 | Outpatient (AMB) | payer MEDICARE, MEDICAID, SELFPAY ==
--- NOTE | 2025-07-08 11:44 | MHC.OFFVIS ---
Vital Signs 07/08/25 11:49 Height 5 ft 3 in Weight 271 lb BMI 48.0 Handedness Right Intake Visit Reasons: New Pt - left shoulder pain Intake Note: Lilliam is a 59 year old right hand dominant female who presents today as a new patient for a evaluation of her left shoulder pain. Patient was seen for her left elbow back on 05/07/21. Patient reports ongoing pain for abut 2 - 3 months. Patient states that her pain is anterior,lateral and posterior of the shoulder and it sometimes radiates to her neck. Her pain is worse with movement. Patient notices that her range of motion is limited due to her pain. Patient finds her pain worse with lifting her arm and overhead reaching. Patient has tried taking tramadol, Tylenol and ibuprofen with mild relief. Impression: No acute bony abnormality Transmissions Systems Operator Services: Transmissions Systems Operator Present (Alanna ([id number])) Allergies No Known Allergies Allergy (Verified 07/08/25 11:49) HPI HPI New Pt - left shoulder pain: Details: Ms. Abel Pearl is a 59 year old right hand dominant female who presents today as a new patient for a evaluation of her left shoulder pain. Patient was seen for her left elbow back on 05/07/21. Patient reports ongoing pain for abut 2 - 3 months. Patient states that her pain is anterior,lateral and posterior of the shoulder and it sometimes radiates to her neck. Her pain is worse with movement. Patient notices that her range of motion is limited due to her pain. Patient finds her pain worse with lifting her arm and overhead reaching. Patient has tried taking tramadol, Tylenol and ibuprofen with mild relief. [facility] Medical History Abdominal pain Low back pain Asthma exacerbation Hypoxemia Colon cancer screening Sinusitis COVID-19 COVID-19 Controlled substance agreement signed Medication monitoring encounter Velia albicans infection Lab test positive for detection of COVID-19 virus COVID-19 Left elbow pain Nausea Abdominal bloating Obesity Bacterial pneumonia COPD (chronic obstructive pulmonary disease) Arthritis Multinodular thyroid Tubular adenoma of colon Chronic fatigue Asthma Bleeding hemorrhoid IBS (irritable bowel syndrome) Vitamin D deficiency Graves disease Hyperlipidemia HTN (hypertension) Diabetes Lumbar radiculopathy Anemia Osteoarthritis Morbid obesity GERD (gastroesophageal reflux disease) Hepatitis C Surgical History Hx of colonoscopy History of esophagogastroduodenoscopy (EGD) Hx of appendectomy Hx of cholecystectomy Family History Mother Diabetes HTN (hypertension) CVD (cardiovascular disease) Heart problem Father Diabetes Brother Autism History of open heart surgery CVD (cardiovascular disease) Diabetes Son Diabetes Maternal Grandmother Diabetes Maternal Grandfather Diabetes Social History Household Members: Spouse, Children and Other Housing: Apartment Are you a primary insurance healthcare consultant to a significant other at home: No Do you presently have visiting nurse or other home services: No Alcohol intake: never Patient Tobacco Use Status: Never used Tobacco service: No Current occupational status: unemployed and disabled Current occupation: rt handed Review of Systems Const All systems reviewed & are unremarkable except as noted in HPI and below Physical Exam Vital Signs: BMI result Body Mass Index 48.0 Const General: cooperative, healthy appearing and no acute distress Resp Effort & Inspection: normal respiratory effort and able to speak in complete sentences Extrem Other: Left shoulder: Forward flexion abduction to 90 degrees. External rotation to 45 degrees. Positive cross-body reach. 4/5 empty can. Negative drop arm. NVI. Psych Appearance: grossly normal Mental Status: mental status grossly normal Attitude: cooperative Office Procedures AMB Joint Injection/Aspiration Joint Injection/Aspiration Primary Site: Left Shoulder Prep: site was prepped using aseptic technique, ethochloride spray was applied and injection warnings given Injected: 40 mg of, Decadron, with 3 mL of, 1% plain Lidocaine, 0.25% Bupivacaine and in the subcromial space Approach Used: posterolateral Procedure: The patient tolerated the procedure well, but had some pain with the injection and there was some relief with the local anesthesia Coding 46337 - Large joint Procedure code (CPT) selection complete Assessment & Plan Assessment & Plan (1) Painful arc syndrome of left shoulder: Code(s): M75.102 - Unspecified rotator cuff tear or rupture of left shoulder, not specified as traumatic Category: Medical Plan The patient was offered a cortisone injection in [place]OD[place]. The patient was explained the risks, benefits, and alternatives to receiving this injection. After receiving consent for the injection, the patient had the procedure done while in the office today. The patient tolerated the procedure well with no complications. The risks, benefits, and alternatives to a corticosteroid injection were discussed with the patient, including the potential benefits of decreased inflammation and pain, improved function, and diagnostic value. Risks were reviewed, including post-injection flare, skin or fat atrophy, transient facial flushing, temporary elevation in blood glucose, bruising, and rare but serious complications such as infection, tendon weakening or rupture, and cartilage damage with repeated injections. Procedure-related discomfort and possible vasovagal symptoms were also explained. Alternatives were reviewed, including NSAIDs, physical therapy, activity modification, bracing, ice/heat, weight management, hyaluronic acid injections when appropriate, PRP or other orthobiologics, oral steroids, surgery depending on pathology, and observation. The patient verbalized understanding and elected to proceed. After receiving consent for the injection, the patient had the procedure done while in the office today. The patient tolerated the procedure well with no complications. Due to the patient?s history of diabetes, they were instructed to monitor their blood glucose level. The patient was informed that they could see a rise in their numbers and if the numbers became too high, they were instructed to call their PCP. Lastly, the patient will attend outpatient physical therapy to work on range of motion. Follow-up will be 8 weeks, or sooner if needed X-rays of the left shoulder which were obtained on 04/26/2025 are negative for any acute fracture or dislocation. Coding Level of Care Code New Pt Level 3 (68506) Diagnoses Painful arc syndrome of left shoulder M75.102 CPT Codes Coding - 51380 Large joint: 00639 - Large joint ([id number])
[2025-07-08 11:49] VITALS: BMI 48.0
--- OUTSIDE RECORDS SUMMARY | 2025-07-08 13:54 | XMS_ITS | Encounter Summary ---
Author Organization [employer] Address [address] [facility] 7t [place] [address] Care Team Providers Care Gut Dropper Name Role Phone Dee Valenzuela MD Primary Care Provider Aggie Campuzano PharmD Unavailable [phone] Encounter Details Date Type Department Care Team (Late st Contact Info) Description 11/29/2024 Orders Only [facility] MED & PEDS [address] [place], [place] [phone] Dee Valenzuela MD [address] [place], [place] [phone] Type 2 diabetes mellitus without complication, without long-term current use of insulin (CMS/[facility]) Social History Tobacco Use Types Packs/Day Years [...] Description 08/14/2025 9:00 AM EST Medication Management [facility] MED & PEDS [address] [place] [address] Aggie Campuzano PharmD [address] [place] [address] documented as of this encounter Visit Diagnoses Diagnosis Type 2 diabetes mellitus without complication, without long-term current use of insulin (HCC) documented in this encounter Additional Health Concerns Assessment Noted Time PHQ-9 Depression Total Score: 17 022 12:14 PM EST documented as of this encounter Care Teams Gut Dropper Relationship Specialty Start Date End Date Dee Valenzuela MD [address] [place], [place] [phone] PCP - General Internal Medicine 10/11/13 Aggie Campuzano PharmD [address] [place] [address] Pharmacist Pharmacy 02/12/25 documented as of this encounter
--- OUTSIDE RECORDS SUMMARY | 2025-07-08 13:54 | XMS_ITS | Encounter Summary ---
Author Organization [employer] Address [address] [facility] 7t [place] [address] Care Team Providers Care Linen Room Supervisor Name Role Phone Dee Valenzuela MD Primary Care Provider Aggie Campuzano PharmD Unavailable [phone] Encounter Details Date Type Department Care Team (Late st Contact Info) Description 07/02/2024 Orders Only [facility] CH[facility] MED & PEDS [address] [place], [place] [phone] Dee Valenzuela MD [address] [place], [place] [phone] Type 2 diabetes mellitus without complication, without long-term current use of insulin (CMS/HCC); Type 2 diabetes mellitus with hyperglycemia ([facility]/HCC) Social History Tobacco Use Types Packs/Day [...] Description 08/14/2025 9:00 AM EST Medication Management [facility] MED & PEDS [address] [place] [address] Aggie Campuzano PharmD [address] [place] [address] documented as of this encounter Visit Diagnoses Diagnosis Type 2 diabetes mellitus without complication, without long-term current use of insulin (HCC) Type 2 diabetes mellitus with hyperglycemia (HCC) documented in this encounter Additional Health Concerns Assessment Noted Time PHQ-9 Depression Total Score: 17 022 12:14 PM EST documented as of this encounter Care Teams Linen Room Supervisor Relationship Specialty Start Date End Date Dee Valenzuela MD [address] [place] [address] PCP - General Internal Medicine 10/11/13 Aggie Campuzano PharmD [address] [place] [address] Pharmacist Pharmacy 02/12/25 documented as of this encounter
--- OUTSIDE RECORDS SUMMARY | 2025-07-08 13:54 | XMS_ITS | Encounter Summary ---
Author Organization [employer] Address [address] [facility] 7t [place] [address] Care Team Providers Care Aviation Maintenance Technician Name Role Phone Dee Valenzuela MD Primary Care Provider Aggie Campuzano PharmD Unavailable [phone] Reason for Visit * Reason Onset Date Comments Appointment Request 04/02/2024 Encounter Details Date Type Department Care Team (Late st Contact Info) Description 04/02/2024 Telephone [facility] MEDICINE [address] [place] [address] Dee Valenzuela MD [address] [place] [address] Appointment Request Social History Tobacco Use Types [...] Description 08/14/2025 9:00 AM EST Medication Management [facility] CHC MED & PEDS [address] [place] [address] Aggie Campuzano PharmD [address] [place] [address] documented as of this encounter Visit Diagnoses Not on filedocumented in this encounter Additional Health Concerns Assessment Noted Time PHQ-9 Depression Total Score: 17 07/20/ 022 12:14 PM EST documented as of this encounter Care Teams Aviation Maintenance Technician Relationship Specialty Start Date End Date Dee Valenzuela MD [address] [place] [address] PCP - General Internal Medicine 10/11/13 Aggie Campuzano PharmD [address] [place] [address] Pharmacist Pharmacy 02/12/25 documented as of this encounter
--- OUTSIDE RECORDS SUMMARY | 2025-07-08 13:54 | XMS_ITS | Encounter Summary ---
Author Organization [employer] Address [address] [facility] 7t [place] [address] Care Team Providers Care Interstate Bus Driver Name Role Phone Dee Valenzuela MD Primary Care Provider Aggie Campuzano PharmD Unavailable [phone] Encounter Details Date Type Department Care Team (Late st Contact Info) Description 04/29/2024 Orders Only [facility] CHC MED & PEDS [address] [place], [place] [phone] Dee Valenzuela MD [address] [place], [place] [phone] Type 2 diabetes mellitus without complication, without [...] 9:00 AM EST Medication Management [facility] MED & PEDS [address] [place] [address] Aggie Campuzano PharmD [address] [place] [address] documented as of this encounter Visit Diagnoses Diagnosis Type 2 diabetes mellitus without complication, without long-term current use of insulin (HCC)- Primary documented in this encounter Additional Health Concerns Assessment Noted Time PHQ-9 Depression Total Score: 17 022 12:14 PM EST documented as of this encounter Care Teams Interstate Bus Driver Relationship Specialty Start Date End Date Dee Valenzuela MD [address] [place] [address] PCP - General Internal Medicine 10/11/13 Aggie Campuzano PharmD [address] [place] [address] Pharmacist Pharmacy 02/12/25 documented as of this encounter
--- OUTSIDE RECORDS SUMMARY | 2025-07-08 13:54 | XMS_ITS | Encounter Summary ---
Author Organization [employer] Address [address] [facility] 7 [place] [address] Care Team Providers Care Printing Table Worker Name Role Phone Dee Valenzuela MD Primary Care Provider [phone] Aggie Campuzano PharmD Unavailable [phone] Reason for Visit * Reason Comments Med Refill Encounter Details Date Type Department Care Team ([facility] st Contact Info) Description 05/12/2025 Refill [facility] [address] [place], [place] [phone] Dee Valenzuela MD [address] [place], [place] [phone] Acute pain of left shoulder Social History [...] Description 08/14/2025 9:00 AM EST Medication Management [facility] [address] [place] [address] Aggie Campuzano PharmD [address] [place] [address] documented as of this encounter Visit Diagnoses Diagnosis Acute pain of left shoulder documented in this encounter Additional Health Concerns Assessment Noted Time PHQ-9 Depression Total Score: 0 04/14/20 25 3:23 PM EDT documented as of this encounter Care Teams Printing Table Worker Relationship Specialty Start Date End Date Dee Valenzuela MD [address] [place] [address] PCP - General Internal Medicine 10/11/13 Aggie Campuzano PharmD [address] [place] [address] Pharmacist Pharmacy 02/12/25 documented as of this encounter
--- OUTSIDE RECORDS SUMMARY | 2025-07-08 13:54 | XMS_ITS | Clinical Summary ---
Author Organization [facility] Address [address] [place] [phone] Phone Care Team Providers Care Width Stripper Name Role Phone Unavailable Primary Care Provider [...] file Medical Devices Not on file Insurance [facility] [employer] [place] [address] [place] [address] [employer] Additional Source Comments The information contained in this document represents components of the legal health record. It is not the complete legal health record.[facility]
--- OUTSIDE RECORDS SUMMARY | 2025-07-08 13:54 | XMS_ITS | Encounter Summary ---
Author Organization [employer] Address [address] [facility] [address] [place] [address] Care Team Providers Care Outreach Assistant Name Role Phone Dee Valenzuela MD Primary Care Provider Aggie Campuzano PharmD Unavailable [phone] Encounter Details Date Type Department Care Team ([facility] st Contact Info) Description 07/22/2024 Orders Only [facility] [address] [employer], [place] [phone] Dee Valenzuela MD [address] [place], [place] [phone] Social History Tobacco Use Types Packs/Day Years [...] Description 08/14/2025 9:00 AM EST Medication Management [facility] MED [facility] PED[facility] [address] [place] [address] Aggie Campuzano, PharmD [address] [place] [address] documented as of this encounter Visit Diagnoses Not on filedocumented in this encounter Additional Health Concerns Assessment Noted Time PHQ-9 Depression Total Score: 17 022 12:14 PM EST documented as of this encounter Care Teams Outreach Assistant Relationship Specialty Start Date End Date Dee Valenzuela MD [address] [place] [address] PCP - General Internal Medicine 10/11/13 Aggie Campuzano PharmD [address] [place] [address] Pharmacist Pharmacy 02/12/25 documented as of this encounter
--- OUTSIDE RECORDS SUMMARY | 2025-07-08 13:54 | XMS_ITS | Clinical Summary ---
Author Organization [employer] Address [address] [place] [address] 7[address] [place] [address] Care Team Providers Care Subassembler Name Role Phone Dee Valenzuela MD Primary Care Provider [phone] Aggie Campuzano PharmD Unavailable [phone] Allergies Active Allergy Reactions Criticality Noted Date [...] 1 023 Active Blood Glucose Monitoring Suppl (niiu Verio Flex System) device Inject 1 Units under the skin 3 times daily. Test blood sugar as directed 1 each 023 Active Lancets (niiu Delica Plus Quyonc26T) miscIndications: Type 2 diabetes mellitus with hyperglycemia ([facility]) To check the blood sugar once a day 90 each 3 024 Active buPROPion XL (Wellbutrin XL) 300 MG 24 hr tablet Take 1 tablet by mouth in the morning. Active lamoTRIgine (LaMICtal) 200 MG tablet Take 1 tablet by mouth at bedtime. 025 Active mirtazapine (Remeron) 30 MG tablet Take 1 tablet by mouth at bedtime. 024 Active Zenpep 14389-00175 units capsule delayed-release particles capsule Take 2 [...] DAILY 200 each 025 Active Continuous Glucose Mountain Bike Guide (FreeStyle Juan Ramon 3 [place]) deviceIndication s:Type 2 diabetes mellitus without complication, without long-term current use of insulin ([facility]) 1 each Once per day. Use as directed for CGM 1 each 025 Active Continuous Glucose Sensor (FreeStyle Juan Ramon 3 Plus Sensor) miscIndications: Type 2 diabetes mellitus without complication, without long-term current use of insulin ([facility]) 1 each every 15 days. Apply 1 every 15 days as directed for CGM 2 each 025 Active Aspirin Low Dose 81 MG [...] complication, without long-term current use of insulin ([facility]) To test the blood sugar 3 times a day 100 each 025 Active traMADol (Ultram) 50 MG tabletIndication [...] hyperglycemia, without long-term current use of insulin ([facility]) INJECT ONE PEN (= 3MG) SUBCUTANEOUSLY ONCE [...] hyperglycemia, without long-term current use of insulin ([facility]) Take 1 tablet twice daily (dose decrease) 60 tablet 2 025 Active dexlansoprazole (Dexilant) [address] capsule 025 Active metoclopramide (Reglan) 5 MG tablet 025 Active nabumetone (Relafen) 750 MG tablet Take 750 mg by mouth 2 times daily. Active tiZANidine (Zanaflex) 2 MG tabletIndication s:Acute pain of left shoulder TAKE 1 TABLET BY MOUTH EVERY 6 HOURS NEEDED FOR MUSCLE SPASMS 30 tablet 025 Active simvastatin (Zocor) 40 MG tabletIndication s:Hypercholester olemia TAKE 1 TABLET BY MOUTH AT BEDTIME 90 tablet 1 Active dilTIAZem CD (Cardizem CD) 180 MG 24 hr capsuleIndicatio ns:Primary hypertension TAKE 1 CAPSULE BY MOUTH EVERY MORNING 90 capsule 1 025 Active dilTIAZem CD (Cardizem CD) 180 MG 24 hr capsuleIndicatio ns:Primary hypertension TAKE 1 CAPSULE BY MOUTH EVERY MORNING 90 capsule 1 025 2024 Discontinued simvastatin (Zocor) 40 MG tabletIndication s:Hypercholester olemia TAKE 1 TABLET BY MOUTH AT BEDTIME 90 tablet 1 025 2024 Discontinued tiZANidine (Zanaflex) 2 MG [...] (10/17/2024): More CIC Gastroparesis 09/11/2024 COPD exacerbation (CMS/HCC) 09/03/2024 Assessment & Plan (09/03/2024 6:59 PM [...] deficiency 07/19/2022 Hypertensive disorder 07/19/2022 Rheumatoid arthritis ([facility]) 11/01/2019 Hemorrhoids 07/05/2016 Type 2 diabetes mellitus, [...] 11/21/2024 Severe chronic obstructive p ulmonary disease ([facility]) 07/25/2013 11/21/2024 Encounters Date Type Department Care Team Description 07/01/2025 Refill [facility] [address] [place] [address] Dee Valenzuela MD Hypercholesterolemia; Primary hypertension 06/18/2025 Orders Only [facility] External Provider, [facility] 06/11/2025 Refill [facility] [address] [place] [address] Dee Valenzuela MD Acute pain of left shoulder 06/10/2025 Telephone [facility] [address] [place], [place] [phone] Dee Valenzuela MD Med Refill 06/05/2025 Travel 06/03/2025 Refill [facility] [address] [place] [address] Dee Valenzuela MD Iron deficiency 06/02/2025 Refill [facility] [address] [place] [address] Dee Valenzuela MD Iron deficiency 05/29/2025 Refill [facility] [address] [place] [address] Aggie Campuzano PharmD Type 2 diabetes mellitus with hyperglycemia, without long-term current use of insulin ([facility]) 05/28/2025 Refill [facility] [address] [place] [address] Dee Valenzuela MD Primary hypertension 05/26/2025 Refill [facility] [address] [place] [address] Dee Valenzuela MD Type 2 diabetes mellitus with hyperglycemia, without long-term current use of insulin ([facility]) 05/14/2025 Refill [facility] [address] [place] [address] Dee Valenzuela MD Seborrheic dermatitis 05/12/2025 Refill [facility] [address] [place] [address] Dee Valenzuela MD Acute pain of left shoulder 05/12/2025 Telephone [facility] [address] [place] [address] Dee Valenzuela MD Med Refill 05/12/2025 Refill [facility] [address] [place] [address] Dee Valenzuela MD Acute pain of left shoulder 05/07/2025 Refill [facility] [address] [place] [address] Terese Izaguirre MD Seborrheic dermatitis 04/29/2025 2:40 PM EDT Office Visit [facility] [address] [place] [address] Dee Valenzuela MD Acute pain of left shoulder (Primary Dx) 04/29/2025 Travel 04/28/2025 Telephone [facility] [address] [place] [address] Dee Valenzuela MD Nurse Triage 04/24/2025 1:20 PM EDT Office Visit [facility] [address] [place] [address] Keya Vang MD Acute pain of left shoulder (Primary Dx); Left cervical radiculopathy 04/24/2025 Refill [facility] [address] [place] [address] Dee Valenzuela MD Left elbow pain 04/24/2025 Travel 04/15/2025 Telephone [facility] [address] [place] [phone] Dee Valenzuela MD Care Coordination 04/14/2025 11:15 AM EDT Office Visit [facility] [address] [place] [address] Dee Valenzuela MD Closed nondisplaced fracture of phalanx of left great toe, unspecified phalanx, initial encounter (Primary Dx); Type 2 diabetes mellitus with other specified complication, with long-term current use of insulin ([facility]) 04/14/2025 Orders Only [facility] [address] [place] [address] Dee Valenzuela MD 04/14/2025 Telephone [facility] [address] [place] [address] Dee Valenzuela MD 04/14/2025 Travel 04/11/2025 Telephone [facility] [address] [place] [address] Dee Valenzuela MD chart prep 04/08/2025 Refill [facility] [address] [place] [address] Dee Valenzuela MD Closed nondisplaced fracture of phalanx of left great toe, unspecified phalanx, initial encounter (Primary Dx) 04/08/2025 Refill [facility] [address] [place] [address] Dee Valenzuela MD Nondisplaced unspecified fracture of left great toe, initial encounter for closed fracture; Closed nondisplaced fracture of phalanx of left great toe, unspecified phalanx, initial encounter from Last 3 Months Immunizations Immunization Administration [...] Description 08/14/2025 9:00 AM EST Medication Management [facility] [address] [place] [address] Aggie Campuzano, ClaraD [address] [place] [address] Health Maintenance Due Date Last Done Comments CT Colonography 1967 Colonoscopy 1967 Colorectal Cancer Screening 1967 Dental Prophylaxis 1967 Dental X-Ray: Bitewings 1967 FIT DNA/Cologuard 1967 FIT 1967 FOBT 1967 HIV Screening 1967 Sigmoidoscopy 1967 Disability Screening 1967 Eye Exam 10/26/1977 Diabetes: Urine Protein Screening 10/26/1986 Pap Smear 10/26/1988 RSV Patients and Patients Aged 60 years or older (1 - Risk 50-74 years 1-dose series) 10/26/2017 Mammogram 04/06/2020 04/06/2018 Cervical Cancer Screening 07/05/2021 [...] - Td or Tdap) 05/07/2029 05/07/2019, 01/10/2008 Hepatitis A Vaccines Aged Out 01/11/2011, 05/18/20 [...] Procedure Name Priority Date/Time Associated Diagnosis Comments NM GASTRIC EMPTYING SOLID Routine 06/18/2025 8:20 AM EST XR CERVICAL SPINE 3V Routine 04/24/2025 2:25 [...] complication, without long-term current use of insulin ([facility]) BI MAMMOGRAM SCREENING BILATERAL Routine 04/06/2018 12:49 PM EDT [facility] HISTORICAL HPV MRNA E6/E7 Routine 07/05/2016 9:30 AM EST from Last 3 Months or Most Recently Relevant to Health Maintenance Results * NM Gastric Emptying Solid (06/18/2025 8:20 AM EST) Anatomical Region Laterality Modality Body Nuclear Medicine 06/18/2025 8:20 AM EST Narrative 06/18/2025 12:44 PM EST [place] [address] Nuclear Medicine Report Signed Patient: Lilliam Geller MR#: [id number] : 1965 Acct:[id number] Age/Sex: 59 / F ADM Date: 06/18/25 Loc: [facility] Attending Dr: Amaya FRANCISCO Ordering Physician: Amaya Olivas Date of Service: 06/18/25 Procedure(s): NM gastric emptying study Accession Number(s): [id number] cc: Dee Valenzuela MD; Amaya Olivas Reason for Exam: R11.2 - Nausea with vomiting, unspecified EXAMINATION: NM RADIONUCLIDE SOLID FOOD GASTRIC EMPTYING 4-HOUR STUDY CLINICAL INFORMATION: R11.2 - Nausea with vomiting, unspecified COMPARISON: None TECHNIQUE: A standard meal consisting of 4 oz of egg whites tagged with 0.99 microcuries Tc-99m Sulfur Colloid, 6 oz water and 1 slice of toast with jelly was administered orally to the patient. Images were obtained using a dual head gamma camera in the anterior and posterior projections over of the stomach immediately post ingestion and at hourly intervals up to 4 hours post ingestion. The anterior and posterior counts at each time interval were averaged using the geometric mean and expressed as percentage of the immediate post ingestion counts. FINDINGS: There is good visualization of activity in the stomach immediately post ingestion. As the study progresses, there is good clearance of activity from the stomach and visualization of progressively increasing small bowel activity. By the end of the study, there is almost no retention noted in the stomach. Retention in the stomach at each time interval was: 1 hour 75% (normal 37%-90%) 2 hours 46% (normal 30%-60%) 3 hours 14% 4 hours 2% (normal 0%-10%) NM/NM gastric emptying study IMPRESSION: Normal 4-hour solid food gastric emptying study. For solid meal, rapid gastric emptying is less than 30% at 60 minutes. Delayed gastric emptying criteria is more than 60% remaining at 120 minutes or more than 10% at 240 minutes. The 4-hour value is the best discriminator of a normal or abnormal result). Gastric emptying study grading per JNMT Consensus Recommendations in 2008 (https://tech.snmjournals.org/content/36/44) Grade 1 (mild retention): 11-20% at 4h Grade 2 (moderate retention): 21-35% at 4h Grade 3 (severe retention): 36-50% at 4h Grade 4 (very severe retention): >50% retention at 4h Electronically signed by: Scott Le MD 06/18/2025 12:41 PM [facility] Dictated By: Scott Le MD Signed By: <Electronically signed by Scott Le MD in OV> 06/18/25 1241 DD/ 0820 TD/TT: 06/18/25 1220 Corporate Librarian: Procedure Note Donotuseinterpreter, Image - 06/18/[address] [address] Nuclear Medicine Report Signed Patient: Lilliam GellerMR#: [id number] : 1965Acct:[id number] Age/Sex: 59 / FADM Date: 06/18/25 Loc: [facility] Attending Dr: Amaya FRANCISCO Ordering Physician: Amaya Olivas Date of Service: 06/18/25 Procedure(s): NM gastric emptying study Accession Number(s): [id number] cc: Dee Valenzuela MD; Olivas-C Reason for Exam: R11.2 - Nausea with vomiting, unspecified EXAMINATION: NM RADIONUCLIDE SOLID FOOD GASTRIC EMPTYING 4-HOUR STUDY CLINICAL INFORMATION: R11.2 - Nausea with vomiting, unspecified COMPARISON: None TECHNIQUE: A standard meal consisting of 4 oz of egg whites tagged with 0.99 microcuries Tc-99m Sulfur Colloid, 6 oz water and 1 slice of toast with jelly was administered orally to the patient. Images were obtained using a dual head gamma camera in the anterior and posterior projections over of the stomach immediately post ingestion and at hourly intervals up to 4 hours post ingestion. The anterior and posterior counts at each time interval were averaged using the geometric mean and expressed as percentage of the immediate post ingestion counts. FINDINGS: There is good visualization of activity in the stomach immediately post ingestion. As the study progresses, there is good clearance of activity from the stomach and visualization of progressively increasing small bowel activity. By the end of the study, there is almost no retention noted in the stomach. Retention in the stomach at each time interval was: 1 hour 75% (normal 37%-90%) 2 hours 46% (normal 30%-60%) 3 hours 14% 4 hours 2% (normal 0%-10%) NM/NM gastric emptying study IMPRESSION: Normal 4-hour solid food gastric emptying study. For solid meal, rapid gastric emptying is less than 30% at 60 minutes. Delayed gastric emptying criteria is more than 60% remaining at 120 minutes or more than 10% at 240 minutes. The 4-hour value is the best discriminator of a normal or abnormal result). Gastric emptying study grading per JNMT Consensus Recommendations in 2008 (https://tech.snmjournals.org/content/36/1/44) Grade 1 (mild retention): 11-20% at 4h Grade 2 (moderate retention): 21-35% at 4h Grade 3 (severe retention): 36-50% at 4h Grade 4 (very severe retention): >50% retention at 4h Electronically signed by: Scott Le MD 06/18/2025 12:41 PM [facility] Dictated By: Scott Le MD Signed By: <Electronically signed by Scott Le MD in OV> 06/18/25 1241 DD/ 0820 TD/TT: 06/18/25 1220 Corporate Librarian: us [facility] External Provider IMG NM PROCEDURES Final Result * XR CERVICAL SPINE 3V (04/24/2025 2:25 PM EDT) Anatomical Region Laterality Modality Abdomen Radiographic Agatha ging 04/24/2025 2:25 PM EDT Narrative 04/24/2025 2:47 PM EDT [facility] [address] [place] [address] XRay Report Signed Patient: Lilliam Geller MR#: [id number] : 1965 Acct:[id number] Age/Sex: 59 / F ADM Date: 04/24/25 Loc: [facility]X Attending Dr: Keya Vang MD Ordering Physician: Keya Vang MD Date of Service: 04/24/25 Procedure(s): XR cervical spine 3V Accession Number(s): [id number] cc: Keya Vang MD Reason for Exam: [...] OV> 04/24/25 1444 DD/ 24 TD/TT: 04/24/251428 Corporate Librarian: Procedure Note Donotuseinterpreter, Image - 04/24/2025 [facility] [address] [place] [address] XRay Report Signed Patient: Lilliam GellerMR#: [id number] : 1965Acct:[id number] Age/Sex: 59 / FADM Date: 04/24/25 Loc: HO.HHCX Attending Dr: Keya Vang MD Ordering Physician: Keya Vang MD Date of Service: 04/24/25 Procedure(s): XR cervical spine 3V Accession Number(s): [id number] cc: Keya Vang MD Reason for Exam: [...] Skyler Sandoval MDin OV> 04/24/25 1444 DD/ 24 TD/TT: 04/24/251428 Corporate Librarian: Keya Vang MD IMG XR PROCEDURES Final Re sult * XR Shoulder 2+ Views Left (04/24/2025 2:10 PM EDT) Anatomical Region Laterality Modality Upper Extremities, Shoulder Left Radi ographic Imaging 04/24/2025 2:10 PM EDT Narrative 04/24/2025 2:48 PM EDT [address] [address] XRay Report Signed Patient: Lilliam Geller MR#: [id number] : 1965 Acct:[id number] Age/Sex: 59 / F ADM Date: 04/24/25 Loc: HO.HHCX Attending Dr: Keya Vang MD Ordering Physician: Keya Vang MD Date of Service: 04/24/25 Procedure(s): XR shoulder LT min 2V Accession Number(s): [id number] cc: Keya Vang MD Reason for Exam: [...] 04/24/25 1445 DD/ 1410 TD/TT: 04/24/25 1429 Corporate Librarian: Procedure Note Donotuseinterpreter, Image - 04/24/[address] [address] XRay Report Signed Patient: Lilliam GellerMR#: [id number] : 1965Acct:[id number] Age/Sex: 59 / FADM Date: 04/24/25 Loc: HO.HHCX Attending Dr: Keya Vang MD Ordering Physician: Keya Vang MD Date of Service: 04/24/25 Procedure(s): XR shoulder LT min 2V Accession Number(s): [id number] cc: Keya Vang MD Reason for Exam: [...] 04/24/25 1445 DD/ 1410 TD/TT: 04/24/25 1429 Corporate Librarian: Keya Vang MD IMG XR PROCEDURES Final Re sult * POCT Glucose (04/14/2025 11:58 AM EDT) Glucose Blood, POC 165 60 - 200 mg/dL QC Media Lot # [id number] Lot# Expiration Date Comment:random Blood Capillary blood specimen / Unknown 04/14/2025 11:58 AM EDT Dee Valenzuela MD POINT OF CARE TEST ENTER/ED IT ORDERABLES Final Result * (ABNORMAL) POCT HGB A1C (03/24/2025 11:03 AM EDT) Hemoglobin A1C 6.5(A) 4.0 - 5.7 % QC Media Lot # [id number] Lot# Expiration Date 336 Blood 03/24/2025 11:0 3 AM EDT us Dee Valenzuela MD POINT OF CARE TEST ENTER/ED IT ORDERABLES Final Result * (ABNORMAL) Hepatitis Panel, General (01/15/2025 9:56 AM EDT) Pathologist [facility] Hepatitis A IgM Nonreactive Nonreactive [facility] Comment:IgM antibodies to MARQUIS V not detected; does not exclude earlyacute or recovered HAV infection. ~Hepatitis B Surface Antibody NONREACTIVE Nonreactive [facility] Comment:Nonreactive: < 8.00 mIU/mL Hepatitis B Core Antibody Nonreactive Nonreactive [facility] Hepatitis C Antibody Reactive(A) Nonreactive [facility] Comment:Presumptive evidence of antibodies to HCV. Hepatitis B Surface Ag Negative Negative [facility] 01/15/2025 9:56 AM EDT 01/15/2025 9:56 AM EDT us Generic External Data Provider LAB BLOOD ORDERAB LES Final Result Performing Organization Address City/State/[facility] Co de Phone Number [facility] [address] [place] [phone] * Lipid Panel, Standard (01/11/2024 9:59 AM EDT) Triglycerides 126 <150 mg/dL [facility] Comment:Desirable Triglyceri de: less than 150 mg/dLBorderline High Triglyceride 150-199 mg/dLHigh Triglyceride: 200-499 mg/dLVery High Triglyceride: greater than or equal to 5OO mg/dL Cholesterol 153 <200 mg/dL [facility] Comment:Desirable Cholestero l: less than 200 mg/dLBorderline High Cholesterol: 200-239 mg/dLHigh Cholesterol: greater than 239 mg/dL LDL Cholesterol Calculated 58 <100 mg/dL [facility] Comment:Desirable LDL: less than 100 mg/dLNear Optimal/Above Optimal LDL: 110- 129 mg/dLBorderline High LDL: 130-159 mg/dLHigh LDL: 160-189 mg/dLVery High LDL: greater than or equal to 190 mg/dL HDL Cholesterol 70 >40 mg/dL [facility] Comment:Desirable HDL: great er than 40 mg/dL Note: This HDL assay may give artificially low results in patients with liver disease. Blood Venous blood specimen / Unknown 01/11/2024 9:59 AM EDT 01/11/2024 2:02 PM EDT us Dee Valenzuela MD LAB BLOOD ORDERABLES Final Result [facility] [address] [place] [phone] * DIGITAL BILATERAL SCREEN 1 (04/06/2018 [...] HPV mRNA E6/E7 Not Detected NOT DETECTED [facility] Comment: This test was performed using the APTIMA(R) HPV Assay ([employer] This assay detects E6/E7 viral messenger RNA (mRNA) from 14 high-risk HPV types (16,18,31,33,35,39,45,51, 52,56,58,59,66,68). For additional information please refer to: http://education.Veristorm/faq/DNU379e8 (This link is being provided for informational/ educational purposes only.) Test Performed by Nuha Vega, [facility], [address] [place] [address] Curtis Subraamnian M.D., Ph.D., Director of Laboratories , [facility] [id number] Please note: Effective 04/18/2016, HPV testing will be performed using [employer]'s APTIMA test which targets mRNA. Detecting mRNA instead of DNA, as in older methods, offers significant improvements in specificity. 07/05/2016 9:30 AM EST Soila Sahu CNM HISTORICAL/NON ORDERABLE LABS Final Result [facility] Anywhere [address] from Last 3 Months or Most Recently Relevant to [place] [id number] [facility] STAND AD[place] Care Teams Subassembler Relationship Specialty Start Date End Date Dee Valenzuela MD [address] [place] [address] PCP - General Internal Medicine 10/11/13 Aggie Campuzano, ClaraD [address] [place] [phone] Pharmacist Pharmacy 02/12/25
--- OUTSIDE RECORDS SUMMARY | 2025-07-08 13:55 | XMS_ITS | Encounter Summary ---
Author Organization [employer] Address [address] [facility] 7 [place] [address] Care Team Providers Care Hot Metal Mixer Operator Name Role Phone Dee Valenzuela MD Primary Care Provider Aggie Capmuzano PharmD Unavailable [phone] Reason for Visit * Reason Onset Date Comments Med Refill 04/08/2025 Encounter Details Date Type Department Care Team (Late st Contact Info) Description 04/08/2025 Refill [facility] [address] [place] [address] Dee Valenzuela MD [address] [place] [address] Closed nondisplaced fracture of phalanx of left [...] 50 MG tablet To be sent to: [facility] - [place], [place] - [address] [facility] documented in this encounter Plan of Treatment Upcoming Encounters Date Type Department Care Team (Late st Contact Info) Description 08/14/2025 9:00 AM EST Medication Management [facility] [address] [place] [address] Aggie Campuzano, PharmD [address] [place] [address] documented as of this encounter Visit Diagnoses Diagnosis Closed nondisplaced fracture of phalanx of left great toe, unspecified phalanx, initial encounter- Primary documented in this encounter Additional Health Concerns Assessment Noted Time PHQ-9 Depression Total Score: 17 022 12:14 PM EST documented as of this encounter Care Teams Hot Metal Mixer Operator Relationship Specialty Start Date End Date Dee Valenzuela MD [address] [place] [address] PCP - General Internal Medicine 10/11/13 Aggie Campuzano PharmD [address] [place] [address] Pharmacist Pharmacy 02/12/25 documented as of this encounter
--- OUTSIDE RECORDS SUMMARY | 2025-07-08 13:55 | XMS_ITS | Clinical Summary ---
Author Organization [facility] Address [address] [place] [address] Care Team Providers Care Switchboard Clerk Name Role Phone Unavailable Primary Care Provider [...]
--- OUTSIDE RECORDS SUMMARY | 2025-07-08 13:55 | XMS_ITS | Encounter Summary ---
Author Organization [facility] Address [address] [place] [phone] Phone Care Team Providers Care Fruit Or Nut Grower Name Role Phone Unavailable Primary Care Provider Unavailabl e Encounter Details Date Type Department Care Team (Latest Contact Info) Description 04/26/2018 Ancillary Orders [facility] [address] [place] [address] [place] [address] Saritha Dumont PA [address] [place] [address] Syncope and collapse Social History Tobacco Use [...] It is not the complete legal health record.[facility]
--- OUTSIDE RECORDS SUMMARY | 2025-07-08 13:55 | XMS_ITS | Encounter Summary ---
Author Organization [employer] Address 75 [facility] 7t [place] [address] Care Team Providers Care Tray Drier Name Role Phone Dee Valenzuela MD Primary Care Provider [phone] Aggie Campuzano PharmD Unavailable [phone] Reason for Visit * Reason Onset Date Comments Med Refill 06/10/2025 Encounter Details Date Type Department Care Team (Late st Contact Info) Description 06/10/2025 Telephone [facility] MEDICINE [address] [place] [address] Dee Valenzuela MD 505 [place] [address] Med Refill Social History Tobacco Use Types [...] 3:14 PM EST Medication was sent to [facility] on 05/30/25. Please advise patient to call the pharmacy for a refill. * Telephone Encounter - Forest Olivas - 06/10/2025 3:11 PM EST TC from pt requesting medication refill. Medications needing refill: hydroCHLOROthiazide 12.5 MG tablet To be sent to: [facility] - [place], [place] - [address] [facility] documented in this encounter Plan of Treatment Upcoming Encounters Date Type Department Care Team (Late st Contact Info) Description 08/14/2025 9:00 AM EST Medication Management [facility] MED & PEDS [address] [place], [place] [phone] Aggie Campuzano, PharmD [address] [place] [address] documented as of this encounter Visit Diagnoses Not on filedocumented in this encounter Additional Health Concerns Assessment Noted Time PHQ-9 Depression Total Score: 0 04/14/20 25 3:23 PM EDT documented as of this encounter Care Teams Tray Drier Relationship Specialty Start Date End Date Dee Valenzuela MD [address] [place] [address] PCP - General Internal Medicine 10/11/13 Aggie Campuzano PharmD 230 [place] [address] Pharmacist Pharmacy 02/12/25 documented as of this encounter
--- OUTSIDE RECORDS SUMMARY | 2025-07-08 13:55 | XMS_ITS | Encounter Summary ---
Author Organization [employer] Address 75 [facility] 7t [place] [address] Care Team Providers Care Seed Packer Name Role Phone Dee Valenzuela MD Primary Care Provider [phone] Aggie Campuzano PharmD Unavailable [phone] Reason for Visit * Reason Comments Med Refill Encounter Details Date Type Department Care Team (Late st Contact Info) Description 02/17/2025 Refill [facility] [address] [place] [address] Terese Izaguirre MD [address] [place] [address] Acute paronychia of finger of left hand; [...] Description 08/14/2025 9:00 AM EST Medication Management [facility] MED & PEDS [address] [place] [address] Aggie Campuzano PharmD [address] [place] [address] documented as of this encounter Visit Diagnoses Diagnosis Acute paronychia of finger of left hand Cellulitis of left finger documented in this encounter Additional Health Concerns Assessment Noted Time PHQ-9 Depression Total Score: 17 022 12:14 PM EST documented as of this encounter Care Teams Seed Packer Relationship Specialty Start Date End Date Dee Valenzuela MD 505 [place] [address] PCP - General Internal Medicine 10/11/13 Aggie Campuzano, ClaraD [address] [place] [address] Pharmacist Pharmacy 02/12/25 documented as of this encounter
--- OUTSIDE RECORDS SUMMARY | 2025-07-08 13:55 | XMS_ITS | Encounter Summary ---
Author Organization [employer] Address 75 [facility] 7t [place] [address] Care Team Providers Care Graduate Assistant Athletic Trainer Name Role Phone Dee Valenzuela MD Primary Care Provider [phone] Aggie Campuzano PharmD Unavailable [phone] Reason for Visit * Reason Comments Med Refill Encounter Details Date Type Department Care Team (Late st Contact Info) Description 02/17/2025 Refill [facility] MEDICINE [address] [place] [address] Dee Valenzuela MD [address] [place] [address] Seborrheic dermatitis Social History Tobacco Use Types [...] Description 08/14/2025 9:00 AM EST Medication Management [facility] MED & PEDS [address] [place] [address] Aggie Campuzano PharmD 230 [place] [address] documented as of this encounter Visit Diagnoses Diagnosis Seborrheic dermatitis Unspecified seborrheic dermatitis documented in this encounter Additional Health Concerns Assessment Noted Time PHQ-9 Depression Total Score: 17 022 12:14 PM EST documented as of this encounter Care Teams Graduate Assistant Athletic Trainer Relationship Specialty Start Date End Date Dee Valenzuela MD [address] [place] [address] PCP - General Internal Medicine 10/11/13 Aggie Campuzano PharmD [address] [place] [address] Pharmacist Pharmacy 02/12/25 documented as of this encounter
--- OUTSIDE RECORDS SUMMARY | 2025-07-08 13:55 | XMS_ITS | Encounter Summary ---
Author Organization [employer] Address 75 [facility] 7 [place] [address] Care Team Providers Care Charge Out Clerk Name Role Phone Dee Valenzuela MD Primary Care Provider Aggie Campuzano PharmD Unavailable [phone] Reason for Visit * Reason Onset Date Comments Nurse Triage 04/28/2025 Encounter Details Date Type Department Care Team (Late st Contact Info) Description 04/28/[address] [facility] MED & PEDS [address] [place], [place] [phone] Dee Valenzuela MD 505 [place], [place] [phone] Nurse Triage Social History Tobacco Use Types [...] 04/28/2025 11:19 AM EDT Triage call with [facility] [place] [id number]. Pt reports constant pain in right arm. [...] Pt declines offer to be seen in [facility]. Pt is advised that a provider must see Pt before medications can be prescribed. Pt last seen in [facility] 04/24/25 for left shoulder pain. ASK apt [...] the pain is 10/10. Contact pt at [phone] documented in this encounter Plan of Treatment Upcoming Encounters Date Type Department Care Team (Late st Contact Info) Description 08/14/2025 9:00 AM EST Medication Management [facility] MED & PEDS [address] [place] [address] Aggie Campuzano PharmD 230 [place] [address] documented as of this encounter Visit Diagnoses Not on filedocumented in this encounter Additional Health Concerns Assessment Noted Time PHQ-9 Depression Total Score: 0 04/14/20 25 3:23 PM EDT documented as of this encounter Care Teams Charge Out Clerk Relationship Specialty Start Date End Date Dee Valenzuela MD [address] [place], [place] [phone] PCP - General Internal Medicine 10/11/13 Aggie Campuzano PharmD 230 [place], [place] [phone] Pharmacist Pharmacy 02/12/25 documented as of this encounter
--- OUTSIDE RECORDS SUMMARY | 2025-07-08 13:55 | XMS_ITS | Encounter Summary ---
Author Organization [employer] Address 75 [facility] 7t [place] [address] Care Team Providers Care Asphalt Raker Name Role Phone Dee Valenzuela MD Primary Care Provider Aggie Campuzano PharmD Unavailable [phone] Encounter Details Date Type Department Care Team (Late st Contact Info) Description 04/14/2025 Orders Only [facility] CHC MED & PEDS [address] [place], [place] [phone] Dee Valenzuela MD 505 [place], [place] [phone] Social History Tobacco Use Types Packs/Day Years [...] [facility] MED & PED[facility] [address] [place] [address] Aggie Campuzano PharmD [address] [place] [address] documented as of this encounter Visit Diagnoses Not on filedocumented in this encounter Additional Health Concerns Assessment Noted Time PHQ-9 Depression Total Score: 0 04/14/20 25 3:23 PM EDT documented as of this encounter Care Teams Asphalt Raker Relationship Specialty Start Date End Date Dee Valenzuela MD [address] [place] [address] PCP - General Internal Medicine 10/11/13 Aggie Campuzano PharmD [address] [place] [address] Pharmacist Pharmacy 02/12/25 documented as of this encounter
--- OUTSIDE RECORDS SUMMARY | 2025-07-08 13:55 | XMS_ITS | Encounter Summary ---
Author Organization [employer] Address 75 [facility] [address] [place] [address] Care Team Providers Care Dramatic Teacher Name Role Phone Dee Valenzuela MD Primary Care Provider Aggie Campuzano PharmD Unavailable [phone] Reason for Referral * Consultation (Routine) - Closed Specialty Diagnoses / Procedures Referred By Lurdes freeman Referred To Contact Orthopaedic Surgery Diagnoses Closed nondisplaced fracture of phalanx of left great toe, unspecified phalanx, initial encounter Dee Valenzuela MD 505 [place] [address] Phone: tel: fax: [facility] [address] [place] [address] [place] [address] Phone: tel: fax: Referral ID Status Reason Start Date Expiration Date V isits Requested Visits Authorized [id number] Closed Specialty Services Required 03/24/2025 03/24/2026 1 1 Encounter Details Date Type Department Care Team ([facility] st Contact Info) Description 03/24/2025 Orders Only [facility] CH[facility] MED & PEDS [address] [place], [place] [phone] Dee Valenzuela MD [address] [place], [place] [phone] Closed nondisplaced fracture of phalanx of left [...] Description 08/14/2025 9:00 AM EST Medication Management [facility] MED & PEDS [address] [place] [address] Aggie Campuzano, PharmD 230 [place], [place] [phone] documented as of this encounter Procedures Procedure [...] documented as of this encounter Care Teams Dramatic Teacher Relationship Specialty Start Date End Date Dee Valenzuela MD [address] [place] [address] PCP - General Internal Medicine 10/11/13 Aggie Campuzano PharmD [address] [place] [address] Pharmacist Pharmacy 02/12/25 documented as of this encounter
--- OUTSIDE RECORDS SUMMARY | 2025-07-08 13:55 | XMS_ITS | Encounter Summary ---
Author Organization [employer] Address [address] [place] [address] [place], [place] [address] Care Team Providers Care Compliance Engineer Name Role Phone Dee Valenzuela MD Primary Care Provider [phone] Aggie Campuzano PharmD Unavailable [phone] Reason for Referral * Consultation (Routine) - Authorized Specialty Diagnoses / Procedures Referred By [place] t Referred To Contact Pharmacy Diagnoses Type 2 diabetes mellitus without complication, without long-term current use of insulin (HCC) Dee Valenzuela MD [address] [place] [address] Phone: tel: fax: Referral ID Status Reason Start Date Expiration Date Visits Requested Visits Authorized [id number] Authorized Consult and Treat 01/15/2025 01/15/2026 6 6 Encounter Details Date Type Department Care Team (Late st Contact Info) Description 01/15/2025 Orders Only [facility] CH[facility] MED & PEDS [address] [place], [place] [phone] Dee Valenzuela MD [address] [place], [place] [phone] Type 2 diabetes mellitus without complication, without [...] Description 08/14/2025 9:00 AM EST Medication Management [facility] MED & PEDS [address] [place] [address] Aggie Campuzano, PharmD [address] [place] [address] Scheduled Referrals Name Type Priority Associated Diagnoses Orde r Schedule Referral to Pharmacy CDTM Outpatient Referral Routine Type 2 diabetes mellitus without complication, without long-term current use of insulin ([facility]) Ordered: 01/15/2025 documented as of this encounter Procedures Procedure Name Priority Date/Time Associated Diagnosis Comments T-SPOT(R).TB Routine 01/15/2025 9:56 AM EDT Type 2 diabetes mellitus without complication, without long-term current use of insulin ([facility]) documented in this encounter Results * T-SPOT??.TB (01/15/2025 9:56 AM EDT) T Spot TB Negative Negative [facility] Comment:A negative test resu lt [...] as aquantitative test. TS PANEL A 0 [facility] TS PANEL B 0 [facility] Negative Control Passed [facility] Positive Control Passed [facility] Comment:For additional infor sterling, please refer tohttp://education.Super/faq/ODV891(This link is being provided for informational/educational purposes only.)THIS TEST WAS PERFORMED AT:[id number] [place] [address]JOHOHCELADAN BARTLETT MD,PHD 01/15/2025 9:56 AM EDT 01/15/2025 9:56 AM EDT us Generic External Data Provider LAB BLOOD ORDERAB LES Final Result [facility] [address] [place] [address] [phone] documented in this encounter Visit Diagnoses Diagnosis Type 2 diabetes mellitus without complication, without long-term current use of insulin (HCC)- Primary documented in this encounter Additional Health Concerns Assessment Noted Time PHQ-9 Depression Total Score: 17 07/20/ 022 12:14 PM EST documented as of this encounter Care Teams Compliance Engineer Relationship Specialty Start Date End Date Dee Valenzuela MD [address] [place] [address] PCP - General Internal Medicine 10/11/13 Aggie Campuzano PharmD [address] [place] [address] Pharmacist Pharmacy 02/12/25 documented as of this encounter
--- OUTSIDE RECORDS SUMMARY | 2025-07-08 13:55 | XMS_ITS | Encounter Summary ---
Author Organization [employer] Address 75 [facility] 7t [place] [address] Care Team Providers Care Rf Test Engineer Name Role Phone Dee Valenzuela MD Primary Care Provider Aggie Campuzano PharmD Unavailable [phone] Reason for Visit * Reason Onset Date Comments returning call 07/20/2022 Encounter Details Date Type Department Care Team ([facility] st Contact Info) Description 07/20/2022 Telephone [facility] MED [facility] PEDS [address] [place], [place] [phone] Dee Valenzuela MD 505 [place], [place] [phone] returning call Social History Tobacco Use Types [...] [facility] MED [facility] [address] [place] [address] Aggie Campuzano PharmD [address] [place] [address] documented as of this encounter Visit Diagnoses Not on filedocumented in this encounter Additional Health Concerns Assessment Noted Time PHQ-9 Depression Total Score: 17 022 12:14 PM EST documented as of this encounter Care Teams Rf Test Engineer Relationship Specialty Start Date End Date Dee Valenzuela MD [address] [place] [address] PCP - General Internal Medicine 10/11/13 Aggie Campuzano PharmD [address] [place] [address] Pharmacist Pharmacy 02/12/25 documented as of this encounter
--- OUTSIDE RECORDS SUMMARY | 2025-07-08 13:55 | XMS_ITS | Encounter Summary ---
Author Organization [employer] Address 75 [facility] 7 [place] [address] Care Team Providers Care Key Entry Operator Name Role Phone Dee Valenzuela MD Primary Care Provider Aggie Campuzano PharmD Unavailable [phone] Reason for Visit * Reason Onset Date Comments FYI 10/14/2024 Encounter Details Date Type Department Care Team ([facility] st Contact Info) Description 10/14/2024 Telephone [facility] CH[facility] MED & PEDS 505 [place], [place] [phone] Dee Valenzuela MD [address] [place], [place] [phone] Social History Tobacco Use Types Packs/Day Years [...] - 10/15/2024 12:18 PM EDT Tc from [facility] with [facility] returning call to inform was unable to meet/reach pt today and will be trying again 10/16/24. * Telephone Encounter - Luisana Mcdaniel RN - 10/14/2024 1:28 PM EDT Noted * Telephone Encounter - Kamila Jain - 10/14/2024 1:17 PM EDT Tc from [facility] with [facility] calling to inform pt will be starting home care services tomorrow 10/15/24. documented in this encounter Plan of Treatment Upcoming Encounters Date Type Department Care Team (Late st Contact Info) Description 08/14/2025 9:00 AM EST Medication Management [facility] MED & PEDS [address] [place] [address] Aggie Campuzano PharmD [address] [place] [address] documented as of this encounter Visit Diagnoses Not on filedocumented in this encounter Additional Health Concerns Assessment Noted Time PHQ-9 Depression Total Score: 17 022 12:14 PM EST documented as of this encounter Care Teams Key Entry Operator Relationship Specialty Start Date End Date Dee Valenzuela MD [address] [place] [address] PCP - General Internal Medicine 10/11/13 Aggie Campuzano PharmD [address] [place] [address] Pharmacist Pharmacy 02/12/25 documented as of this encounter
--- OUTSIDE RECORDS SUMMARY | 2025-07-08 13:55 | XMS_ITS | Encounter Summary ---
Author Organization [employer] Address 75 [facility] 7t [place] [address] Care Team Providers Care Dog Races Manager Name Role Phone Dee Valenzuela MD Primary Care Provider Aggie Campuzano PharmD Unavailable [phone] Encounter Details Date Type Department Care Team (Late st Contact Info) Description 01/12/2024 Orders Only [facility] MED & PEDS [address] [place], [place] [phone] Dee Valenzuela MD [address] [place], [place] [phone] Iron deficiency (Primary Dx) Social History Tobacco [...] Description 08/14/2025 9:00 AM EST Medication Management [facility] MED & PEDS [address] [place] [address] Aggie Campuzano PharmD [address] [place] [address] Scheduled Orders Name Type Priority Associated Diagnoses [...] documented as of this encounter Care Teams Dog Races Manager Relationship Specialty Start Date End Date Dee Valenzuela MD [address] [place] [address] PCP - General Internal Medicine 10/11/13 Aggie Campuzano PharmD [address] [place] [address] Pharmacist Pharmacy 02/12/25 documented as of this encounter
--- OUTSIDE RECORDS SUMMARY | 2025-07-08 13:55 | XMS_ITS | Encounter Summary ---
Author Organization [facility] Address [address] [place] [address] Phone Care Team Providers Care Cup Machine Operator Name Role Phone Unavailable Primary Care Provider Unavailabl e Encounter Details Date Type Department Care Team (Late st Contact Info) Description 04/26/2018 Ancillary Orders [facility] [address] [place] [address] 3rd Floor, [address] [place] [address] Saritha Dumont PA [address] [place] [address] [place] [address] Social History Tobacco Use Types Packs/Day Years [...]
== END 2025-07-08 12:13 | disposition home or self-care (01) ==
LOC: HO.HOS 11:41
PROVIDERS: PCP Internal Medicine; Visit Provider Physician Assistant
DX: M75.102 Unspecified rotator cuff tear or rupture of left shoulder, not specified as traumatic (principal); M25.512 Pain in left shoulder
CPT/HCPCS: 20610; 99203

== ENCOUNTER → 2025-07-08 11:40 | Outpatient (BNVA) | payer MEDICARE, MEDICAID, SELFPAY | PROVIDERS: PCP Internal Medicine; Visit Provider Physician Assistant | DX: M75.102 Unspecified rotator cuff tear or rupture of left shoulder, not specified as traumatic (principal) | CPT/HCPCS: 20610; 99202; J0665; J1100; J2003 ==